=== PATIENT | female | born 1940 | race Caucasian/White ===

== ENCOUNTER 2020-11-17 12:41 | Outpatient (REF) | payer MEDICARE, SELFPAY ==
--- NOTE | ~2020-11-17 | MM_ITS ---
EXAMINATION: MM SCREENING DIGITAL BREAST TOMOSYNTHESIS, BILATERAL CLINICAL INFORMATION: Screening. Asymptomatic. Prior remote outside mammography unable to be located at this time. The lifetime risk of breast cancer based on the Tyrer-Cuzick Model is 2%. COMPARISON: None. TECHNIQUE: Digital breast tomosynthesis is performed in both the craniocaudal and mediolateral oblique views along with computer-aided detection (CAD). Synthesized 2D images are generated from the tomosynthesis. FINDINGS: There are scattered areas of fibroglandular density (ACR BI-RADS breast composition Category b). Breast tissue composition borders on predominantly fatty. The right breast shows no significant mass or architectural abnormality. There are bilateral vascular calcifications. The axilla and skin contours are unremarkable. The left CC view has nodular asymmetric density outer quadrant 5 cm from nipple with benign-appearing fibroglandular density upper quadrant on MLO view. Prior remote exams are unable to be retrieved, patient will be recalled in order to fully characterize this area for new baseline. MM/MM tomosynthesis screening BI IMPRESSION: 1. Left: Nodular asymmetric density outer quadrant on CC view likely island fibroglandular tissue. 2. Right: No mammographic evidence of malignancy. ASSESSMENT: BI-RADS 0: Incomplete - Need Additional Imaging Evaluation RECOMMENDATION: 1. Additional views of the left breast (3-D rolled CC x2, 3-D ML). 2. Targeted ultrasound if warranted after review of the additional views. 3. Radiology department staff will contact the patient for additional imaging. This patient's information was entered into a reminder system with a target due date for their next mammogram.
--- NOTE | ~2020-11-17 | MM_ITS ---
EXAMINATION: BONE DENSITOMETRY CLINICAL INDICATION: Menopause. COMPARISON: This is the patient's baseline examination. TECHNIQUE: Using a [id number] DXA System (software version: 13.1) manufactured by [employer], dual-energy x-ray absorptiometry was performed of the lumbar spine and left hip. The images are of good technical quality. Summary results are attached. FINDINGS: AP SPINE L1-L3 (excluding L4): The data of L1-L4 has been changed to exclude the L4 vertebral body, because degenerative change at this level may cause overestimation of lumbar spine density. BMD 0.979 g/cm2, Z-score -0.2, T-score -1.6, osteopenia. LEFT FEMUR, NECK: BMD 0.691 g/cm2, Z-score -0.7, T-score -2.5, osteoporosis. LEFT FEMUR, TOTAL: BMD 0.838 g/cm2, Z-score 0.2, T-score -1.4, osteopenia. IDENTIFIED RISK FACTORS: Early menopause, glucocorticoids (chronic), history of fracture (adult), hysterectomy, recurrent falls, rheumatoid arthritis, secondary osteoporosis, bilateral oophorectomy, Thiazide. HISTORY OF FRACTURE: Other fractures. MEDICATIONS: Calcium, vitamin D, Fosamax. MM/XR DEXA axial skeleton IMPRESSION: 1. DIAGNOSIS: Osteoporosis based on the lowest T-score value of -2.5 in the femoral neck applying World Health Organization criteria. 2. 10-YEAR FRACTURE RISK PREDICTION, FRAX: According to the guidelines, FRAX calculation should only be performed on patients in the osteopenia bone density category. Therefore, FRAX was not performed on this patient. 3. Treatment Recommendations: NOF guidelines recommend consideration for treatment in postmenopausal women and men age 50 and older presenting with the following: -A hip or vertebral (clinical or morphometric) fracture. -T-score less than or equal to -2.5 at the femoral neck or spine after appropriate evaluation to exclude secondary causes. -Low bone mass at the hip or spine and a 10-year fracture probability by FRAX of greater than or equal to 3% for hip fracture or greater than or equal to 20% for major osteoporotic fracture based on the [place] adapted WHO algorithm. 4. Other Recommendations: All treatment decisions require clinical judgment and consideration of individual patient factors, including patient preferences, comorbidities, previous drug use, risk factors not captured in the FRAX model (e.g. frailty, falls, vitamin D deficiency, increased bone turnover, interval significant decline in bone density) and possible under or overestimation of fracture risk by FRAX. Additional medical evaluation for secondary cause of low bone mineral density may be appropriate. FUTURE SCAN RECOMMENDATION: People with diagnosed cases of osteoporosis or at high risk for fracture should have regular bone mineral density tests. For patients eligible for Medicare, routine testing is allowed once every 2 years. The testing frequency can be increased to one year for patients who have rapidly progressing disease, those who are receiving or discontinuing medical therapy to restore bone mass, or have additional risk factors.
== END 2020-11-17 12:42 | disposition home or self-care (01) ==
LOC: HO.MAMMO 12:41
PROVIDERS: PCP Internal Medicine; Visit Provider Internal Medicine
DX: Z12.31 Encounter for screening mammogram for malignant neoplasm of breast (principal); M81.0 Age-related osteoporosis without current pathological fracture; Z78.0 Asymptomatic menopausal state
CPT/HCPCS: 77063; 77067; 77080

== ENCOUNTER 2021-01-30 08:26 | Outpatient (REF) | payer MEDICARE, SELFPAY ==
[2021-01-30 10:12] LABS: MANUAL DIFF FLAG NO
[2021-01-30 10:19] LABS: Basophils Percent Auto 0.2 % (0-2); Eosinophils Absolute Auto 0.2 X10*3/uL (0.0-0.4); Eosinophils Percent Auto 1.9 % (0-4); Hematocrit 40.9 % (37-47); Hemoglobin 13.3 g/dl (12.0-16.0); Imm Gran Abs Auto 0.03 X10*3/uL (0.00-0.03); Imm Gran Pct Auto 0.3 % (0.0-0.4); Lymphocytes Absolute Auto 2.1 X10*3/uL (1.2-4.9); Lymphocytes Percent Auto 24.2 % (20-40); Mean Corpuscular HGB Conc 32.5 g/dl (31.0-35.0); Mean Corpuscular Hemoglobin 29.9 pg (27.0-33.0); Mean Corpuscular Volume 91.9 fL (80-98); Mean Platelet Volume 10.8 fL (9.4-12.3); Monocytes Absolute Auto 0.7 X10*3/uL (0.1-1.2); Monocytes Percent Auto 7.9 % (2-11); Neutrophils Absolute Auto 5.7 X10*3/uL (2.0-8.3); Neutrophils Percent Auto 65.5 % (45-73); Platelet Count 267 X10*3/uL (160-400); Red Blood Count 4.45 X10*6/uL (4.20-5.50); Red Cell Distribution Width 12.7 % (11.0-16.0); White Blood Count 8.6 X10*3/uL (4.8-10.8)
[2021-01-30 10:43] LABS: Alanine Aminotransferase 12 U/L (0-31); Albumin Level 3.9 g/dL (3.5-5.0); Alkaline Phosphatase 49 U/L (39-117); Anion Gap 16 (12-20); Aspartate Amino Transferase 15 U/L (5-31); Bilirubin Total 0.6 mg/dL (0.0-1.0); Blood Urea Nitrogen 20 mg/dL (9-16); C Reactive Protein 1.21 mg/dL (< or = 0.50); Calcium 9.3 mg/dL (8.4-10.2); Carbon Dioxide 29 mmol/L (22-29); Chloride 102 mmol/L (96-108); Estimated Glomerular Filt Rate > 60; Glucose Random 78 mg/dL (60-115); Potassium 3.8 mmol/L (3.3-5.1); Sodium 143 mmol/L (135-145); Total Protein 6.5 g/dL (6.5-8.0)
[2021-01-30 11:02] LABS: Free T4 (Free Thyroxine) 0.81 ng/dL (0.71-1.85); Thyroid Stimulating Hormone 5.01 uIU/mL (0.32-4.0); Vitamin D 25-OH Total 13.7 ng/mL (>30)
[2021-01-30 11:03] LABS: Vitamin B12 277 pg/mL (200-900)
== END 2021-01-30 08:27 | disposition home or self-care (01) ==
LOC: HO.10HDL 08:26
PROVIDERS: Visit Provider Internal Medicine
DX: I10 Essential (primary) hypertension (principal); E03.9 Hypothyroidism, unspecified; R00.2 Palpitations; K21.9 Gastro-esophageal reflux disease without esophagitis; M81.0 Age-related osteoporosis without current pathological fracture
CPT/HCPCS: 36415; 80053; 82306; 82607; 84439; 84443; 85025; 86140

== ENCOUNTER 2021-03-23 10:19 | Outpatient (REF) | payer MEDICARE, SELFPAY ==
[2021-03-24 09:17] LABS: Lyme Abs Screen <0.90 index
== END 2021-03-23 10:20 | disposition home or self-care (01) ==
LOC: HO.10HDL 10:19
PROVIDERS: Visit Provider Internal Medicine
DX: T14.8XXA Other injury of unspecified body region, initial encounter (principal); W57.XXXA Bitten or stung by nonvenomous insect and other nonvenomous arthropods, initial encounter
CPT/HCPCS: 36415; 86617; 86618

== ENCOUNTER 2021-03-30 10:12 | Outpatient (REF) | payer MEDICARE, SELFPAY ==
[2021-03-30 13:53] LABS: C Reactive Protein 0.82 mg/dL (< or = 0.50)
[2021-03-31 08:52] LABS: Lyme Abs Screen <0.90 index
== END 2021-03-30 10:13 | disposition home or self-care (01) ==
LOC: HO.10HDL 10:12
PROVIDERS: Visit Provider Internal Medicine
DX: T14.8XXA Other injury of unspecified body region, initial encounter (principal); W57.XXXA Bitten or stung by nonvenomous insect and other nonvenomous arthropods, initial encounter
CPT/HCPCS: 36415; 86140; 86617; 86618

== ENCOUNTER 2021-04-13 09:35 | Outpatient (REF) | payer MEDICARE, SELFPAY ==
--- NOTE | ~2021-04-13 | XR_ITS ---
EXAMINATION: XR CERVICAL SPINE CLINICAL INFORMATION: Polymyalgia rheumatica. COMPARISON: None TECHNIQUE: 3 views of the cervical spine were obtained. FINDINGS: Mild to moderate degenerative disc disease is seen at C5-C6 and C6-C7. There is mild grade 1 retrolisthesis of C5 relative to C3 and C6. Mild to moderate multilevel bilateral facet arthropathy is seen most pronounced from C2-C3 to C4-C5. There is no acute fracture. Thin-walled cysts with narrow zone of transition are seen at the level the pedicle/spinous process of C1. The odontoid process is intact with mild degenerative changes. The prevertebral soft tissues are unremarkable. XR/XR cervical spine 2V IMPRESSION: Multilevel degenerative changes as detailed above without acute abnormality. Thin-walled cysts at the level of C1 are nonspecific, but demonstrate benign features.
--- NOTE | ~2021-04-13 | XR_ITS ---
EXAMINATION: XR HAND, BILATERAL CLINICAL INFORMATION: Polymyalgia rheumatica. COMPARISON: X-ray of the right wrist April 2016 TECHNIQUE: Three views of both hands. 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 This is unchanged compared with the 2016 x-ray. TRISCAPHE JOINT: Subchondral cystic change and marginal osteophytes indicative of mild osteoarthritis. METACARPOPHALANGEAL JOINTS: Unremarkable. Enthesopathic cystic change in the head of the 2nd metacarpal. INTERPHALANGEAL JOINTS: Scattered osteoarthritic changes noted manifested by small marginal osteophytes and/or subchondral cysts involving the 2nd, 3rd and 5th DIP joints and IP joint of the thumb. Remaining bones, joints and soft tissues unremarkable. LEFT HAND: FIRST CARPOMETACARPAL JOINT: Severe osteoarthritis manifested by joint space loss, subchondral cystic change and prominent marginal osteophytes. Enthesopathic cystic change at the base of the ulnar styloid without clinical significance. METACARPOPHALANGEAL JOINTS: Normal. INTERPHALANGEAL JOINTS: Mild osteoarthritis of the IP joint of the thumb and 2nd DIP joint manifested by small marginal osteophytes. Remaining bones, joints and soft tissues unremarkable. XR/XR hand LT min 3V IMPRESSION: RIGHT HAND: Severe osteoarthritis of the 1st carpometacarpal joint. Mild osteoarthritis in the triscaphe joint and interphalangeal joints. LEFT HAND: Severe osteoarthritis of the 1st carpometacarpal joint. Mild osteoarthritis involving the interphalangeal joints, as noted.
--- NOTE | ~2021-04-13 | XR_ITS ---
EXAMINATION: XR HAND, BILATERAL CLINICAL INFORMATION: Polymyalgia rheumatica. COMPARISON: X-ray of the right wrist April 2016 TECHNIQUE: Three views of both hands. 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 This is unchanged compared with the 2016 x-ray. TRISCAPHE JOINT: Subchondral cystic change and marginal osteophytes indicative of mild osteoarthritis. METACARPOPHALANGEAL JOINTS: Unremarkable. Enthesopathic cystic change in the head of the 2nd metacarpal. INTERPHALANGEAL JOINTS: Scattered osteoarthritic changes noted manifested by small marginal osteophytes and/or subchondral cysts involving the 2nd, 3rd and 5th DIP joints and IP joint of the thumb. Remaining bones, joints and soft tissues unremarkable. LEFT HAND: FIRST CARPOMETACARPAL JOINT: Severe osteoarthritis manifested by joint space loss, subchondral cystic change and prominent marginal osteophytes. Enthesopathic cystic change at the base of the ulnar styloid without clinical significance. METACARPOPHALANGEAL JOINTS: Normal. INTERPHALANGEAL JOINTS: Mild osteoarthritis of the IP joint of the thumb and 2nd DIP joint manifested by small marginal osteophytes. Remaining bones, joints and soft tissues unremarkable. 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 Mild osteoarthritis in the triscaphe joint and interphalangeal joints. LEFT HAND: Severe osteoarthritis of the 1st carpometacarpal joint. Mild osteoarthritis involving the interphalangeal joints, as noted.
[2021-04-13 11:03] LABS: MANUAL DIFF FLAG NO
[2021-04-13 11:14] LABS: Basophils Percent Auto 0.3 % (0-2); Eosinophils Percent Auto 0.3 % (0-4); Hematocrit 40.8 % (37-47); Hemoglobin 13.8 g/dl (12.0-16.0); Imm Gran Abs Auto 0.06 X10*3/uL (0.00-0.03); Imm Gran Pct Auto 0.5 % (0.0-0.4); Lymphocytes Absolute Auto 1.3 X10*3/uL (1.2-4.9); Lymphocytes Percent Auto 10.9 % (20-40); Mean Corpuscular HGB Conc 33.8 g/dl (31.0-35.0); Mean Corpuscular Hemoglobin 29.6 pg (27.0-33.0); Mean Corpuscular Volume 87.6 fL (80-98); Mean Platelet Volume 11.5 fL (9.4-12.3); Monocytes Absolute Auto 0.7 X10*3/uL (0.1-1.2); Neutrophils Absolute Auto 9.6 X10*3/uL (2.0-8.3); Platelet Count 200 X10*3/uL (160-400); Red Blood Count 4.66 X10*6/uL (4.20-5.50); Red Cell Distribution Width 12.6 % (11.0-16.0); White Blood Count 11.7 X10*3/uL (4.8-10.8)
[2021-04-13 12:15] LABS: Erythrocyte Sedimentation Rate 16 MM/HR (0-20)
[2021-04-13 12:25] LABS: Alanine Aminotransferase 9 U/L (0-31); Albumin Level 4.3 g/dL (3.5-5.0); Alkaline Phosphatase 48 U/L (39-117); Anion Gap 15 (12-20); Aspartate Amino Transferase 16 U/L (5-31); Bilirubin Total 0.5 mg/dL (0.0-1.0); Blood Urea Nitrogen 14 mg/dL (9-16); C Reactive Protein 0.53 mg/dL (< or = 0.50); Calcium 10.1 mg/dL (8.4-10.2); Carbon Dioxide 29 mmol/L (22-29); Chloride 96 mmol/L (96-108); Estimated Glomerular Filt Rate > 60; Glucose Random 83 mg/dL (60-115); Potassium 3.7 mmol/L (3.3-5.1); Rheumatoid Factor < 15.0 IU/mL (<15.0); Sodium 136 mmol/L (135-145); Total Protein 6.9 g/dL (6.5-8.0)
[2021-04-19 16:57] LABS: Cyclic Citrullinated Peptide <16 UNITS
== END 2021-04-13 09:36 | disposition home or self-care (01) ==
LOC: HO.LAB 09:35
PROVIDERS: PCP Internal Medicine; Visit Provider Student in an Organized Health Care Education/Training Program
DX: M35.3 Polymyalgia rheumatica (principal); Z79.52 Long term (current) use of systemic steroids
CPT/HCPCS: 36415; 72040; 73130; 80053; 85025; 85652; 86140; 86200; 86431; 99202

== ENCOUNTER 2021-05-01 10:37 | Outpatient (REF) | payer MEDICARE, SELFPAY ==
[2021-05-01 12:49] LABS: Anion Gap 16 (12-20); Blood Urea Nitrogen 12 mg/dL (9-16); Calcium 9.3 mg/dL (8.4-10.2); Carbon Dioxide 30 mmol/L (22-29); Chloride 90 mmol/L (96-108); Estimated Glomerular Filt Rate > 60; Glucose Random 82 mg/dL (60-115); Potassium 3.5 mmol/L (3.3-5.1); Sodium 132 mmol/L (135-145)
[2021-05-01 13:11] LABS: Thyroid Stimulating Hormone 2.54 uIU/mL (0.32-4.0); Vitamin D 25-OH Total 84.4 ng/mL (>30)
== END 2021-05-01 10:38 | disposition home or self-care (01) ==
LOC: HO.10HDL 10:37
PROVIDERS: Visit Provider Internal Medicine
DX: E03.9 Hypothyroidism, unspecified (principal); E55.9 Vitamin D deficiency, unspecified; I10 Essential (primary) hypertension
CPT/HCPCS: 36415; 80048; 82306; 84439; 84443

== ENCOUNTER → 2021-05-04 10:15 | Outpatient (BNVA) | payer MEDICARE, SELFPAY | PROVIDERS: PCP Internal Medicine; Visit Provider Student in an Organized Health Care Education/Training Program | DX: M35.3 Polymyalgia rheumatica (principal); M81.0 Age-related osteoporosis without current pathological fracture; Z79.52 Long term (current) use of systemic steroids | CPT/HCPCS: 99212 ==

== ENCOUNTER 2021-06-27 13:17 | Outpatient (REF) | payer MEDICARE, SELFPAY ==
--- NOTE | ~2021-06-27 | XR_ITS ---
EXAMINATION: XR SHOULDER, RIGHT XR WRIST, RIGHT CLINICAL INFORMATION: Pain in right wrist. Comparison. COMPARISON: None TECHNIQUE: Four views of the right wrist and 4 views of the right shoulder. FINDINGS: RIGHT WRIST: There is loss of radiocarpal and 1st carpometacarpal joint space. Moderate periarticular spurring is seen in the 1st carpometacarpal joint space. No visible acute fracture, dislocation, or lytic process seen. Scaphoid view reveals no fracture. RIGHT SHOULDER: The glenohumeral joint space is normal. There is mild reduction in the AC joint space. No visible acute fracture or dislocation. The AC joint is normal. XR/XR shoulder RT min 2V IMPRESSION: 1. Degenerative arthritic changes in the radiocarpal joint and 1st carpometacarpal joint space with radha-articular spurring. No acute fracture or dislocation of the right wrist. The scaphoid bone is normal. 2. Mild degenerative changes of the AC joint. No visible acute fracture, dislocation, or subluxation. No abnormal soft tissue swelling.
--- NOTE | ~2021-06-27 | XR_ITS ---
EXAMINATION: XR SHOULDER, RIGHT XR WRIST, RIGHT CLINICAL INFORMATION: Pain in right wrist. Comparison. COMPARISON: None TECHNIQUE: Four views of the right wrist and 4 views of the right shoulder. FINDINGS: RIGHT WRIST: There is loss of radiocarpal and 1st carpometacarpal joint space. Moderate periarticular spurring is seen in the 1st carpometacarpal joint space. No visible acute fracture, dislocation, or lytic process seen. Scaphoid view reveals no fracture. RIGHT SHOULDER: The glenohumeral joint space is normal. There is mild reduction in the AC joint space. No visible acute fracture or dislocation. The AC joint is normal. XR/XR wrist RT 2V IMPRESSION: 1. Degenerative arthritic changes in the radiocarpal joint and 1st carpometacarpal joint space with radha-articular spurring. No acute fracture or dislocation of the right wrist. The scaphoid bone is normal. 2. Mild degenerative changes of the AC joint. No visible acute fracture, dislocation, or subluxation. No abnormal soft tissue swelling.
[2021-06-27 15:11] LABS: C Reactive Protein 0.19 mg/dL (< or = 0.50)
[2021-06-27 15:40] LABS: Erythrocyte Sedimentation Rate 14 MM/HR (0-20)
== END 2021-06-27 13:18 | disposition home or self-care (01) ==
LOC: HO.XRAY 13:17
PROVIDERS: PCP Internal Medicine; Visit Provider Nurse Practitioner Family
DX: M35.3 Polymyalgia rheumatica (principal); M81.0 Age-related osteoporosis without current pathological fracture; M25.511 Pain in right shoulder; M25.531 Pain in right wrist; Z79.52 Long term (current) use of systemic steroids; Z91.81 History of falling
CPT/HCPCS: 36415; 73030; 73100; 85652; 86140; 99212

== ENCOUNTER → 2021-07-11 08:55 | Outpatient (BNVA) | payer MEDICARE, SELFPAY | PROVIDERS: PCP Internal Medicine; Visit Provider Physician Assistant | DX: M75.80 Other shoulder lesions, unspecified shoulder (principal); M19.011 Primary osteoarthritis, right shoulder | CPT/HCPCS: 20610; 99202; J1040 ==

== ENCOUNTER 2021-08-14 08:26 | Outpatient (REF) | payer MEDICARE, SELFPAY ==
[2021-08-14 10:07] LABS: MANUAL DIFF FLAG NO
[2021-08-14 10:11] LABS: Basophils Percent Auto 0.4 % (0-2); Eosinophils Absolute Auto 0.3 X10*3/uL (0.0-0.4); Hematocrit 36.1 % (37.0-47.0); Hemoglobin 12.4 g/dl (12.0-16.0); Imm Gran Abs Auto 0.03 X10*3/uL (0.00-0.03); Imm Gran Pct Auto 0.4 % (0.0-0.4); Lymphocytes Absolute Auto 1.9 X10*3/uL (1.2-4.9); Lymphocytes Percent Auto 28.4 % (20-40); Mean Corpuscular HGB Conc 34.3 g/dl (31.0-35.0); Mean Corpuscular Hemoglobin 31.9 pg (27.0-33.0); Mean Corpuscular Volume 92.8 fL (80.0-98.0); Mean Platelet Volume 10.4 fL (9.4-12.3); Monocytes Absolute Auto 0.6 X10*3/uL (0.1-1.2); Monocytes Percent Auto 8.1 % (2-11); Neutrophils Absolute Auto 3.94 x10*3/uL (2.0-8.3); Neutrophils Percent Auto 57.7 % (45-73); Platelet Count 259 X10*3/uL (160-400); Red Blood Count 3.89 X10*6/uL (4.20-5.50); Red Cell Distribution Width 12.8 % (11.0-16.0); White Blood Count 6.8 X10*3/uL (4.8-10.8)
[2021-08-14 10:40] LABS: Alanine Aminotransferase 11 U/L (0-31); Alkaline Phosphatase 46 U/L (39-117); Anion Gap 9 (12-20); Aspartate Amino Transferase 13 U/L (5-31); Bilirubin Total 0.5 mg/dL (0.0-1.0); Blood Urea Nitrogen 22 mg/dL (9-16); Calcium 9.2 mg/dL (8.4-10.2); Carbon Dioxide 29 mmol/L (22-29); Chloride 104 mmol/L (96-108); Cholesterol 189 mg/dL; Estimated Glomerular Filt Rate > 60; Glucose Fasting 88 mg/dL (60-99); HDL Cholesterol 64 mg/dL; LDL Cholesterol Calculated 103 mg/dl; Potassium 4.2 mmol/L (3.3-5.1); Sodium 138 mmol/L (135-145); Total Protein 6.3 g/dL (6.5-8.0); Triglycerides 114 mg/dL
[2021-08-14 11:00] LABS: Free T4 (Free Thyroxine) 0.87 ng/dL (0.71-1.85); Thyroid Stimulating Hormone 3.23 uIU/mL (0.32-4.0)
[2021-08-14 13:23] LABS: Erythrocyte Sedimentation Rate 21 MM/HR (0-20)
[2021-08-14 18:55] LABS: C Reactive Protein 0.63 mg/dL (< or = 0.50)
== END 2021-08-14 08:27 | disposition home or self-care (01) ==
LOC: HO.10HDL 08:26
PROVIDERS: Absent Provider Internal Medicine; Visit Provider Student in an Organized Health Care Education/Training Program
DX: M35.3 Polymyalgia rheumatica (principal); I10 Essential (primary) hypertension; E78.00 Pure hypercholesterolemia, unspecified; E03.9 Hypothyroidism, unspecified
CPT/HCPCS: 36415; 80053; 80061; 84439; 84443; 85025; 85652; 86140

== ENCOUNTER 2021-10-08 16:07 | Outpatient (REF) | payer MEDICARE, SELFPAY ==
[2021-10-08 16:56] LABS: Influenza A PCR NEGATIVE (Negative); Influenza B PCR NEGATIVE (Negative); Resp Syncy Virus RNA Qual PCR NEGATIVE (Negative); SARS COV2 PCR INHOUSE NEGATIVE (Negative)
== END 2021-10-08 16:08 | disposition home or self-care (01) ==
LOC: HO.LNP 16:07
PROVIDERS: Visit Provider Internal Medicine
DX: Z20.822 Contact with and (suspected) exposure to COVID-19 (principal)
CPT/HCPCS: 0241U

== ENCOUNTER 2021-11-23 10:48 | Outpatient (REF) | payer MEDICARE, SELFPAY ==
[2021-11-23 13:38] LABS: MANUAL DIFF FLAG NO
[2021-11-23 13:43] LABS: Basophils Percent Auto 0.2 % (0-2); Eosinophils Absolute Auto 0.2 X10*3/uL (0.0-0.4); Eosinophils Percent Auto 2.1 % (0-4); Hematocrit 39.8 % (37.0-47.0); Hemoglobin 13.2 g/dl (12.0-16.0); Imm Gran Abs Auto 0.05 X10*3/uL (0.00-0.03); Imm Gran Pct Auto 0.5 % (0.0-0.4); Lymphocytes Absolute Auto 1.7 X10*3/uL (1.2-4.9); Lymphocytes Percent Auto 16.1 % (20-40); Mean Corpuscular HGB Conc 33.2 g/dl (31.0-35.0); Mean Corpuscular Hemoglobin 31.2 pg (27.0-33.0); Mean Corpuscular Volume 94.1 fL (80.0-98.0); Mean Platelet Volume 10.4 fL (9.4-12.3); Monocytes Absolute Auto 0.7 X10*3/uL (0.1-1.2); Monocytes Percent Auto 6.8 % (2-11); Neutrophils Absolute Auto 7.6 x10*3/uL (2.0-8.3); Neutrophils Percent Auto 74.3 % (45-73); Platelet Count 275 X10*3/uL (160-400); Red Blood Count 4.23 X10*6/uL (4.20-5.50); Red Cell Distribution Width 12.3 % (11.0-16.0); White Blood Count 10.3 X10*3/uL (4.8-10.8)
[2021-11-23 13:54] LABS: Alanine Aminotransferase 12 U/L (0-31); Albumin Level 4.1 g/dL (3.5-5.0); Alkaline Phosphatase 51 U/L (39-117); Anion Gap 14 (12-20); Aspartate Amino Transferase 14 U/L (5-31); Bilirubin Total 0.4 mg/dL (0.0-1.0); Blood Urea Nitrogen 22 mg/dL (9-16); Calcium 9.8 mg/dL (8.4-10.2); Carbon Dioxide 28 mmol/L (22-29); Chloride 100 mmol/L (96-108); Estimated Glomerular Filt Rate > 60; Glucose Random 77 mg/dL (60-115); Potassium 4.4 mmol/L (3.3-5.1); Sodium 138 mmol/L (135-145)
[2021-11-23 14:15] LABS: Free T4 (Free Thyroxine) 0.94 ng/dL (0.71-1.85); Thyroid Stimulating Hormone 2.91 uIU/mL (0.32-4.0); Vitamin D 25-OH Total 38.3 ng/mL (>30)
== END 2021-11-23 10:49 | disposition home or self-care (01) ==
LOC: HO.10HDL 10:48
PROVIDERS: Visit Provider Internal Medicine
DX: E03.9 Hypothyroidism, unspecified (principal); I49.1 Atrial premature depolarization; K21.9 Gastro-esophageal reflux disease without esophagitis; M81.0 Age-related osteoporosis without current pathological fracture
CPT/HCPCS: 36415; 80053; 82306; 84439; 84443; 85025

== ENCOUNTER 2022-01-21 11:21 | Outpatient (REF) | payer MEDICARE, SELFPAY ==
--- NOTE | ~2022-01-21 | XR_ITS ---
EXAMINATION: XR CHEST CLINICAL INFORMATION: Hypertension. Shortness of breath. COMPARISON: None TECHNIQUE: 2 views of the chest were obtained. FINDINGS: The cardiac and mediastinal contours are normal. The lungs are clear. There is no pleural effusion or pneumothorax. There are degenerative changes of the spine. XR/XR chest 2V IMPRESSION: No evidence for acute disease in the chest.
[2022-01-21 13:22] LABS: MANUAL DIFF FLAG NO
[2022-01-21 13:25] LABS: Basophils Percent Auto 0.2 % (0-2); Eosinophils Percent Auto 0.2 % (0-4); Hematocrit 40.3 % (37.0-47.0); Hemoglobin 13.2 g/dl (12.0-16.0); Imm Gran Abs Auto 0.11 X10*3/uL (0.00-0.03); Imm Gran Pct Auto 0.9 % (0.0-0.4); Lymphocytes Absolute Auto 2.6 X10*3/uL (1.2-4.9); Lymphocytes Percent Auto 20.6 % (20-40); Mean Corpuscular HGB Conc 32.8 g/dl (31.0-35.0); Mean Corpuscular Hemoglobin 31.6 pg (27.0-33.0); Mean Corpuscular Volume 96.4 fL (80.0-98.0); Mean Platelet Volume 10.5 fL (9.4-12.3); Monocytes Absolute Auto 0.9 X10*3/uL (0.1-1.2); Monocytes Percent Auto 7.4 % (2-11); Neutrophils Absolute Auto 8.7 x10*3/uL (2.0-8.3); Neutrophils Percent Auto 70.7 % (45-73); Platelet Count 267 X10*3/uL (160-400); Red Blood Count 4.18 X10*6/uL (4.20-5.50); Red Cell Distribution Width 13.9 % (11.0-16.0); White Blood Count 12.4 X10*3/uL (4.8-10.8)
[2022-01-21 13:40] LABS: Alanine Aminotransferase 10 U/L (0-31); Alkaline Phosphatase 45 U/L (39-117); Anion Gap 13 (12-20); Aspartate Amino Transferase 12 U/L (5-31); Bilirubin Total 0.4 mg/dL (0.0-1.0); Blood Urea Nitrogen 18 mg/dL (9-16); Calcium 9.6 mg/dL (8.4-10.2); Carbon Dioxide 27 mmol/L (22-29); Chloride 106 mmol/L (96-108); Estimated Glomerular Filt Rate > 60; Glucose Random 74 mg/dL (60-115); Potassium 3.8 mmol/L (3.3-5.1); Sodium 142 mmol/L (135-145); Total Protein 6.5 g/dL (6.5-8.0)
[2022-01-21 13:53] LABS: Free T4 (Free Thyroxine) 1.05 ng/dL (0.71-1.85); Thyroid Stimulating Hormone 2.85 uIU/mL (0.32-4.0)
[2022-01-21 13:59] LABS: B Type Natriuretic Peptide 78 pg/mL (<100); Troponin-I High Sensitivity 4.8 ng/L (<3.5-17.0)
== END 2022-01-21 11:22 | disposition home or self-care (01) ==
LOC: HO.10HDL 11:21
PROVIDERS: Visit Provider Internal Medicine
DX: I10 Essential (primary) hypertension (principal); R06.02 Shortness of breath; K21.9 Gastro-esophageal reflux disease without esophagitis; R63.5 Abnormal weight gain; M35.3 Polymyalgia rheumatica
CPT/HCPCS: 36415; 71046; 80053; 82550; 83880; 84439; 84443; 84484; 85025

== ENCOUNTER 2022-01-27 09:32 | Emergency (ER) | payer MEDICARE, SELFPAY ==
--- NOTE | ~2022-01-27 | XR_ITS ---
EXAMINATION: XR CHEST CLINICAL INFORMATION: Shortness of breath COMPARISON: January 21, 2022 TECHNIQUE: AP portable view of the chest was obtained. FINDINGS: No significant abnormality is noted involving the heart, lungs, mediastinum, bony thorax or soft tissues. XR/XR chest 1V IMPRESSION: No acute disease.
--- NOTE | ~2022-01-27 | CT_ITS ---
EXAMINATION: CT ANGIOGRAM OF THE CHEST WITH AND WITHOUT CONTRAST (CT PULMONARY ANGIOGRAM FOR PE) CLINICAL INFORMATION: Reason for Exam SOB and elevated d dimer COMPARISON: None TECHNIQUE: Prior to contrast administration, noncontrast localization images were obtained. Subsequently, multidetector volumetric imaging was performed from the thoracic inlet to below the diaphragms following the administration of 65 mL Omnipaque 350 intravenous contrast. No contrast reaction reported Sagittal, coronal, and MIP oblique sagittal reformatted images were obtained on the CT workstation, uploaded to PACS, and reviewed. This CT examination was performed using dose optimization techniques as appropriate, variously including the following: *Automated exposure control *Adjustment of mA and/or kV according to patient size (this includes techniques or standardized protocols for targeted exams where dose is matched to indication/reason for exam; i.e. extremities or head) *Use of iterative reconstruction technique Total exam dose-length product 325 mGy-cm FINDINGS: QUALITY OF STUDY/CONTRAST BOLUS: Satisfactory. PULMONARY ARTERIES: No central or segmental pulmonary emboli. THORACIC AORTA: No aneurysm or dissection. LUNG: There is emphysematous changes of both lungs with bullous changes left upper lobe. There are 1 one-2 mm subpleural nodules in right upper and lower lobes. The largest 2mm nodule is in right lower lobe axial image 222/8. No large nodule, mass or consolidation seen. PLEURA: No pleural effusion or pneumothorax. MEDIASTINUM: And the great vessels are normal caliber. The central trachea and the bronchi are widely patent. No abnormal size mediastinal or hilar lymph nodes seen. There is no pericardial effusion. No evidence of septal bowing or right heart strain. CHEST WALL/AXILLA: No axillary or internal mammary lymphadenopathy. OSSEOUS STRUCTURES: No lytic or sclerotic process seen. There is mild exaggerated thoracic kyphosis UPPER ABDOMEN: There is a small 2.3 cm cystic lesion in right hepatic lobe. Several smaller lesions are seen in the liver as well most likely suggestive of a small cyst. No intrahepatic ductal dilatation. No reflux of contrast into the hepatic veins to suggest elevated right heart pressures. CT/CT angio chest PE protocol IMPRESSION: No evidence of PE. No evidence aortic dissection or aneurysm. Diffuse emphysematous lungs without acute pneumonic process. VTE: Negative
[2022-01-27 09:49] VITALS: BP 182/88; PULSE 87; RESP 14; TEMP 36.4; O2SAT 99; BMI 33.2
[2022-01-27 10:00] VITALS: BP 156/69; PULSE 78; RESP 14; TEMP 36.4; O2SAT 98
--- NOTE | 2022-01-27 10:08 | ECG_ITS ---
Test Reason : SOB Blood Pressure : / mmHG Vent. Rate : 074 BPM Atrial Rate : 074 BPM P-R Int : 148 ms QRS Dur : 084 ms QT Int : 398 ms P-R-T Axes : 074 -02 057 degrees QTc Int : 441 ms Sinus rhythm with Premature atrial complexes Nonspecific ST abnormality Abnormal ECG No previous ECGs available Referred By: Delicia Herrera Electronically Signed By:Ramon Quinteros
--- NOTE | 2022-01-27 10:15 | ED_ITS ---
HPI - SOB/Dyspnea General Chief Complaint: Dyspnea Stated Complaint: SOB/Dizzy Time Seen by Provider: 01/27/22 10:00 Source: patient and family () Mode of arrival: ambulatory Limitations: no limitations History of Present Illness HPI Narrative: 81 YEARS OLD FEMALE CAME IN FOR EVALUATION OF SHORTNESS OF BREATH Symptoms started about 7-8 months ago with worsening of exertional dyspnea, patient noted during ambulating at the house or doing some work around the house started to have shortness of breath but no chest pain, progressively is worsening now shortness of breath is during rest. Patient was seen by her PCP Dr. Davis who order chest x-ray and blood workup which was unremarkable. No history of lung disease/COPD/asthma in the past. She is a former smoker quit 40 years ago. Patient declined any orthopnea, PND, or lower extremities edema. Related Data Home Medications Medication Instructions Recorded Confirmed alendronate 70 mg tablet 70 mg PO QWEEK 04/13/21 06/27/21 celecoxib 200 mg capsule 200 mg PO DAILY 04/13/21 06/27/21 fexofenadine 180 mg tablet 180 mg PO DAILY 04/13/21 06/27/21 fluticasone propionate 50 1 spray INTRANASAL DAILY 04/13/21 06/27/21 mcg/actuation nasal spray,suspension (Allergy Relief (fluticasone)) omeprazole 20 mg capsule,delayed 20 mg PO DAILY 04/13/21 06/27/21 release sertraline 25 mg tablet 25 mg PO DAILY 04/13/21 06/27/21 simvastatin 20 mg tablet 20 mg PO DAILY 04/13/21 06/27/21 Previous Rx's Medication Instructions Recorded prednisone 1 mg tablet 4 mg PO DAILY #120 tab 05/04/21 Allergies Allergy/AdvReac Type Severity Reaction Status Date / Time naproxen [NAPROXEN] Allergy Intermediate BLISTERS Verified 06/27/21 14:36 IN MOUTH Sulfa (Sulfonamide Allergy Intermediate BLISTERS Verified 06/27/21 14:36 Antibiotics) ON TONGUE [SULFA (SULFONAMIDE ANTIBIOTICS)] Review of Systems Review of Systems: All other systems are reviewed and are negative Constitutional: Reports as per HPI and Reports no additional constitutional complaints Eyes: Reports as per HPI and Reports no additional eye complaints Reports system reviewed and no additional complaints, except as documented Cardiovascular: Reports as per HPI and Reports no additional cardiovascular complaints Respiratory: Reports as per HPI and Reports no additional respiratory complaints Gastrointestinal: Reports as per HPI and Reports no additional gastrointestinal complaints Genitourinary: Reports no additional female genitourinary complaints Musculoskeletal: Reports no additional musculoskeletal complaints Skin/Breast: Reports system reviewed and no additional complaints, except as docu Psychiatric: Reports no additional psychiatric complaints Endocrine: Reports no additional endocrine complaints Hematologic/Lymphatic: Reports no additional hematologic/lymphatic complaints Allergic/Immunologic: Reports no additional allergic/immunologic complaints Reports system reviewed and no additional complaints, except as documented and Reports Abnormal speech present [facility] Past Medical History Surgical History Hx of cholecystectomy Hx of hysterectomy Social History Social History Alcohol intake: current Alcohol intake frequency: holidays/special occasions only Patient Tobacco Use Status: Former Tobacco user Tobacco use type: Cigarette Cigarettes Per Day: 15 Years Smoked: 4 Smoked in Last 30 Days: No Use of substances other than those prescribed or required for medical reasons: Yes Substance Use Type: Marijuana Last Used Substance: Days (ago) Any prior treatment program specific to substance use: No Advance Directives: No Advance Directives Information Provided: Yes Physical Exam Vital Signs: Vital Signs: Last Vital Signs Temp 97.6 F 01/27/22 12:04 Pulse 72 01/27/22 15:02 Resp 16 01/27/22 15:02 BP 133/95 H 01/27/22 15:02 Pulse Ox 94 01/27/22 15:02 BMI result Body Mass Index 33.2 Vital signs have been reviewed as appeared to be correct. Blood pressure normal. Heart rate normal. Respiration rate normal. Temperature normal. Oxygen saturation normal. Appearance: Alert. Oriented X3. No acute distress. Head: Normal external exam. Normocephalic. Atraumatic. No Mcmahon signs noted. No raccoon eyes noted Eyes: PERRLA. EOMI. Conjunctiva and sclera normal. Eyelids normal. ENT: TM's Normal. Pharynx normal. Uvula midline. Moist mucous membranes. No trismus noted. No drooling noted. No muffled voice noted. Neck: Normal inspection. Neck supple. FROM. No adenopathy. Thyroid Normal. No meningeal signs. No neck mass noted. CVS: Normal heart rate and rhythm. Heart sound normal. No murmurs noted. Pulses normal throughout. Respiratory: No respiratory distress. Painless inspiration. Breath sounds normal. No wheezes/rales/rhonchi noted. Chest nontender. No accessory muscle usage noted or decreased air movement noted. Abdomen: Soft and nontender. Bowel sounds normal in all 4 quadrants. No distention noted. No organomegaly noted. No visible injury noted. Back: No CVA tenderness. Full range of motion noted. Skin: Skin warm and dry. Normal skin color. Normal skin turgor. No rashes/lesions/lacerations noted. Extremities: No lower extremity edema. Extremities exhibit normal range of motion. Extremities nontender. Neuro: Oriented X 3. Cranial nerve exam: II-XII are grossly intact No motor deficit. No sensory deficit. Reflexes normal. Course Course Course Narrative: Assessment and plan. 81 years old female came in for worsening of shortness of breath for many months now, patient had outpatient workup by her PCP which was unremarkable, known to have history of smoking for over 40 years ago, because elevated D-dimer patient had CT of the chest which shows emphysematous change but no PE or any other vascular disaster. Patient stable in the emergency department with oxygenation of 94-99% on room air and stable vital signs. Patient is scheduled to see her PCP tomorrow I recommended to get a referral to corrosion control fitter. MDM - SOB/Dyspnea Medical Records Attestation: I reviewed the patient's medical records. Lab Data Attestation: I reviewed the patient's lab results. Result diagrams: 01/27/22 10:39 01/27/22 10:48 Labs: Lab Results 01/27/22 01/27/22 01/27/22 Range/Units 10:21 10:39 10:39 WBC 12.2 H (4.8-10.8) X10*3/uL RBC 4.41 (4.20-5.50) X10*6/uL Hgb 14.1 (12.0-16.0) g/dl Hct 40.9 (37.0-47.0) % MCV 92.7 (80.0-98.0) fL MCH 32.0 (27.0-33.0) pg MCHC 34.5 (31.0-35.0) g/dl RDW 13.4 (11.0-16.0) % Plt Count 188 D (160-400) X10*3/uL MPV 11.0 (9.4-12.3) fL Immature Gran % (Auto) 1.3 H (0.0-0.4) % Neut % (Auto) 77.5 H (45-73) % Lymph % (Auto) 13.6 L (20-40) % Alexander % (Auto) 6.9 (2-11) % Eos % (Auto) 0.5 (0-4) % Baso % (Auto) 0.2 (0-2) % Lymph # (Auto) 1.7 (1.2-4.9) X10*3/uL Alexander # (Auto) 0.8 (0.1-1.2) X10*3/uL Eos # (Auto) 0.1 (0.0-0.4) X10*3/uL Baso # (Auto) 0.0 (0.0-0.2) X10*3/uL Abs Immat Gran (auto) 0.16 H (0.00-0.03) X10*3/uL Absolute Neuts (auto) 9.4 H (2.0-8.3) x10*3/uL Absolute Nucleated RBC 0.000 (0.0-0.012) X10*3/uL Nucleated RBC % (auto) 0.0 (0.0-0.2) /100WBC Smear Tech's Comments VERIFIED D-Dimer High Sensitivty NG/ML Sodium (135-145) mmol/L Potassium (3.3-5.1) mmol/L Chloride (96-108) mmol/L Carbon Dioxide (22-29) mmol/L Anion Gap (12-20) BUN (9-16) mg/dL Creatinine (0.5-1.4) mg/dL Estim Creat Clear Calc Estimated GFR Random Glucose (60-115) mg/dL Calcium (8.4-10.2) mg/dL Total Bilirubin (0.0-1.0) mg/dL Direct Bilirubin (0.0-0.5) mg/dL AST (5-31) U/L ALT (0-31) U/L Alkaline Phosphatase (39-117) U/L Troponin I High Sens 7.4 D (<3.5-17.0) ng/L B-Natriuretic Peptide (<100) pg/mL Total Protein (6.5-8.0) g/dL Albumin (3.5-5.0) g/dL Lipase (8-78) U/L Influenza Type A (PCR) NEGATIVE (Negative) Influenza Type B (PCR) NEGATIVE (Negative) RSV RNA Qual (PCR) NEGATIVE (Negative) SARS-CoV-2 RNA (RT-PCR) NEGATIVE (Negative) 01/27/22 01/27/22 01/27/22 Range/Units 10:39 10:39 10:48 WBC (4.8-10.8) X10*3/uL RBC (4.20-5.50) X10*6/uL Hgb (12.0-16.0) g/dl Hct (37.0-47.0) % MCV (80.0-98.0) fL MCH (27.0-33.0) pg MCHC (31.0-35.0) g/dl RDW (11.0-16.0) % Plt Count (160-400) X10*3/uL MPV (9.4-12.3) fL Immature Gran % (Auto) (0.0-0.4) % Neut % (Auto) (45-73) % Lymph % (Auto) (20-40) % Alexander % (Auto) (2-11) % Eos % (Auto) (0-4) % Baso % (Auto) (0-2) % Lymph # (Auto) (1.2-4.9) X10*3/uL Alexander # (Auto) (0.1-1.2) X10*3/uL Eos # (Auto) (0.0-0.4) X10*3/uL Baso # (Auto) (0.0-0.2) X10*3/uL Abs Immat Gran (auto) (0.00-0.03) X10*3/uL Absolute Neuts (auto) (2.0-8.3) x10*3/uL Absolute Nucleated RBC (0.0-0.012) X10*3/uL Nucleated RBC % (auto) (0.0-0.2) /100WBC Smear Tech's Comments D-Dimer High Sensitivty 399 NG/ML Sodium 138 (135-145) mmol/L Potassium 3.4 (3.3-5.1) mmol/L Chloride 98 (96-108) mmol/L Carbon Dioxide 27 (22-29) mmol/L Anion Gap 16 (12-20) BUN 21 H (9-16) mg/dL Creatinine 0.82 (0.5-1.4) mg/dL Estim Creat Clear Calc 51.0 Estimated GFR > 60 Random Glucose 87 (60-115) mg/dL Calcium 9.7 (8.4-10.2) mg/dL Total Bilirubin 0.8 (0.0-1.0) mg/dL Direct Bilirubin 0.3 (0.0-0.5) mg/dL AST 13 (5-31) U/L ALT 13 (0-31) U/L Alkaline Phosphatase 51 (39-117) U/L Troponin I High Sens (<3.5-17.0) ng/L B-Natriuretic Peptide 30 (<100) pg/mL Total Protein 6.7 (6.5-8.0) g/dL Albumin 4.1 (3.5-5.0) g/dL Lipase 11 (8-78) U/L Influenza Type A (PCR) (Negative) Influenza Type B (PCR) (Negative) RSV RNA Qual (PCR) (Negative) SARS-CoV-2 RNA (RT-PCR) (Negative) Imaging Data Chest CT angiogram: Attestation: I personally reviewed and interpreted this imaging study as follows: Radiologist's impression: No evidence of PE, no evidence of aortic dissection or aneurysm, diffuse emphysematous lung without acute pneumonic process. ECG Data Attestation: I personally reviewed and interpreted this ECG as follows: Interpretation: Normal sinus rhythm at 74 beats per minutes with premature atrial complex, left axis deviation, normal intervals, no ST-T changes. Discharge Plan Discharge Clinical Impression: Chronic dyspnea Patient Disposition: Home, Self-Care Instructions: Dyspnea (ED) Prescriptions: No Action alendronate 70 mg tablet 70 mg PO QWEEK 0RF celecoxib 200 mg capsule 200 mg PO DAILY 0RF omeprazole 20 mg capsule,delayed release(DR/EC) 20 mg PO DAILY 0RF fexofenadine 180 mg tablet 180 mg PO DAILY 0RF fluticasone propionate [Allergy Relief (fluticasone)] 50 mcg/actuation spray,suspension 1 spray intranasal DAILY 0RF Rx Instructions: administer into each nostril sertraline 25 mg tablet 25 mg PO DAILY 0RF simvastatin 20 mg tablet 20 mg PO DAILY 0RF prednisone 1 mg tablet 4 mg PO DAILY Qty: 120 3RF Referrals: Ismael Davis MD [Primary Care Provider] -
[2022-01-27 10:46] LABS: Basophils Percent Auto 0.2 % (0-2); Eosinophils Absolute Auto 0.1 X10*3/uL (0.0-0.4); Eosinophils Percent Auto 0.5 % (0-4); Hemoglobin 14.1 g/dl (12.0-16.0); PLT CLUMP 1; SCAN SMEAR FLAG 1
[2022-01-27 10:47] LABS: Hematocrit 40.9 % (37.0-47.0); Imm Gran Abs Auto 0.16 X10*3/uL (0.00-0.03); Imm Gran Pct Auto 1.3 % (0.0-0.4); Lymphocytes Absolute Auto 1.7 X10*3/uL (1.2-4.9); Lymphocytes Percent Auto 13.6 % (20-40); MANUAL DIFF FLAG SCAN; Mean Corpuscular HGB Conc 34.5 g/dl (31.0-35.0); Mean Corpuscular Volume 92.7 fL (80.0-98.0); Monocytes Absolute Auto 0.8 X10*3/uL (0.1-1.2); Monocytes Percent Auto 6.9 % (2-11); Neutrophils Absolute Auto 9.4 x10*3/uL (2.0-8.3); Neutrophils Percent Auto 77.5 % (45-73); Red Blood Count 4.41 X10*6/uL (4.20-5.50); Red Cell Distribution Width 13.4 % (11.0-16.0)
[2022-01-27 11:08] LABS: B Type Natriuretic Peptide 30 pg/mL (<100); Platelet Count 188 X10*3/uL (160-400); Troponin-I High Sensitivity 7.4 ng/L (<3.5-17.0); White Blood Count 12.2 X10*3/uL (4.8-10.8)
[2022-01-27 11:09] LABS: SLIDE REVIEW VERIFIED
[2022-01-27 11:11] LABS: Alanine Aminotransferase 13 U/L (0-31); Albumin Level 4.1 g/dL (3.5-5.0); Alkaline Phosphatase 51 U/L (39-117); Anion Gap 16 (12-20); Aspartate Amino Transferase 13 U/L (5-31); Bilirubin Direct 0.3 mg/dL (0.0-0.5); Bilirubin Total 0.8 mg/dL (0.0-1.0); Blood Urea Nitrogen 21 mg/dL (9-16); Calcium 9.7 mg/dL (8.4-10.2); Carbon Dioxide 27 mmol/L (22-29); Chloride 98 mmol/L (96-108); Estimated Glomerular Filt Rate > 60; Glucose Random 87 mg/dL (60-115); Lipase 11 U/L (8-78); Potassium 3.4 mmol/L (3.3-5.1); Sodium 138 mmol/L (135-145); Total Protein 6.7 g/dL (6.5-8.0)
[2022-01-27 11:24] LABS: Influenza A PCR NEGATIVE (Negative); Influenza B PCR NEGATIVE (Negative); Resp Syncy Virus RNA Qual PCR NEGATIVE (Negative); SARS COV2 PCR INHOUSE NEGATIVE (Negative)
[2022-01-27 11:45] LABS: D Dimer High Sensitivity 399 NG/ML
[2022-01-27 12:04] VITALS: BP 154/73; PULSE 74; RESP 12; TEMP 36.4; O2SAT 95
[2022-01-27] MEDS: iohexoL 350 MG/ML 100 ML INFUS..BTL 65 ML IV (14:13)
[2022-01-27 15:02] VITALS: BP 133/95; PULSE 72; RESP 16; O2SAT 94
== END 2022-01-27 16:15 | disposition home or self-care (01) ==
PROVIDERS: Emergency Provider Emergency Medicine; PCP Internal Medicine
DX: R06.00 Dyspnea, unspecified (principal); R06.02 Shortness of breath; Z87.891 Personal history of nicotine dependence; Z20.822 Contact with and (suspected) exposure to COVID-19
CPT/HCPCS: 0241U; 36415; 71045; 71275; 80048; 80076; 83690; 83880; 84484; 85025; 85379; 93005; 99284; Q9967

== ENCOUNTER 2022-01-28 12:07 | Outpatient (REF) | payer MEDICARE, SELFPAY ==
[2022-01-28 13:51] LABS: C Reactive Protein 0.63 mg/dL (< or = 0.50)
[2022-01-28 13:52] LABS: B Type Natriuretic Peptide 30 pg/mL (<100); Troponin-I High Sensitivity 6.7 ng/L (<3.5-17.0)
== END 2022-01-28 12:08 | disposition home or self-care (01) ==
LOC: HO.LAB 12:07
PROVIDERS: PCP Internal Medicine; Visit Provider Internal Medicine
DX: R06.02 Shortness of breath (principal)
CPT/HCPCS: 36415; 82550; 83880; 84484; 86140

== ENCOUNTER 2022-04-09 11:00 | Outpatient (REF) | payer MEDICARE, SELFPAY ==
[2022-04-09 11:26] LABS: MANUAL DIFF FLAG NO
[2022-04-09 11:36] LABS: Basophils Percent Auto 0.2 % (0-2); Eosinophils Percent Auto 0.1 % (0-4); Hematocrit 43.4 % (37.0-47.0); Hemoglobin 14.9 g/dl (12.0-16.0); Imm Gran Abs Auto 0.13 X10*3/uL (0.00-0.03); Imm Gran Pct Auto 0.9 % (0.0-0.4); Lymphocytes Absolute Auto 1.7 X10*3/uL (1.2-4.9); Lymphocytes Percent Auto 11.5 % (20-40); Mean Corpuscular HGB Conc 34.3 g/dl (31.0-35.0); Mean Corpuscular Hemoglobin 31.2 pg (27.0-33.0); Monocytes Absolute Auto 0.7 X10*3/uL (0.1-1.2); Monocytes Percent Auto 4.8 % (2-11); Neutrophils Absolute Auto 12.3 x10*3/uL (2.0-8.3); Neutrophils Percent Auto 82.5 % (45-73); Platelet Count 274 X10*3/uL (160-400); Red Blood Count 4.77 X10*6/uL (4.20-5.50); Red Cell Distribution Width 12.6 % (11.0-16.0); White Blood Count 14.9 X10*3/uL (4.8-10.8)
[2022-04-09 12:46] LABS: C Reactive Protein 0.46 mg/dL (< or = 0.50); Estimated Glomerular Filt Rate > 60
[2022-04-09 14:59] LABS: Erythrocyte Sedimentation Rate 21 MM/HR (0-20)
== END 2022-04-09 11:01 | disposition home or self-care (01) ==
LOC: HO.LAB 11:00
PROVIDERS: PCP Internal Medicine; Visit Provider Internal Medicine Rheumatology
DX: M17.0 Bilateral primary osteoarthritis of knee (principal); M19.041 Primary osteoarthritis, right hand; M19.042 Primary osteoarthritis, left hand; M35.3 Polymyalgia rheumatica; M81.0 Age-related osteoporosis without current pathological fracture; Z79.1 Long term (current) use of non-steroidal anti-inflammatories (NSAID); Z79.52 Long term (current) use of systemic steroids; Z79.899 Other long term (current) drug therapy
CPT/HCPCS: 20610; 36415; 82565; 85025; 85652; 86140; 99212

== ENCOUNTER 2022-04-19 13:58 | Outpatient (REF) | payer MEDICARE, SELFPAY ==
--- NOTE | 2022-04-19 | PFT_ITS ---
FLOWS: FEV1 101% of predicted at 1.52 L. FVC 102% of predicted at 2.10 L. FEV1 to FVC ratio of 0.72. No bronchodilator response except in small to medium airways. LUNG VOLUMES: Total lung capacity 97% of predicted at 4.21 L. Residual volume 107% of predicted at 0.38 L. Slow vital capacity 88% of predicted at 1.93 L. Expiratory reserve volume 85% of predicted at 0.28 L. Diffusion capacity is mildly decreased, diffusion capacity corrects to normal after adjustment for alveolar ventilation. IMPRESSION: No obstructive or restrictive ventilatory defect. No bronchodilator response. Essentially normal pulmonary function test. Black Taylor MD AP/MODL / [id number]
== END 2022-04-19 13:59 | disposition home or self-care (01) ==
LOC: HO.RESP 13:58
PROVIDERS: PCP Internal Medicine; Visit Provider Internal Medicine
DX: R06.02 Shortness of breath (principal)
CPT/HCPCS: 94060; 94727; 94729

== ENCOUNTER → 2022-04-22 09:15 | Outpatient (REF) | payer MEDICARE, SELFPAY ==
--- NOTE | 2022-04-22 09:19 | CA_ITS ---
Transthoracic Echocardiogram Patient (Last, First, Middle): Vero Ramírez, Gender: Female Date of : 1940 Age: 81 Procedure Date: 04/22/2022 Procedure Type: Transthoracic Echocardiogram Location: OP Height: 149.86 cm Weight: 77.11 kg BSA: 1.72 m2 Heart Rate: bpm Jet Mechanic: AARON Referring MD: Ismael Davis MD Gas Leak Inspector: Jax Clarke MD Symptoms: R06.02 SOB Study Quality: Adequate ECG Rhythm: Sinus Conclusions: - 1. Borderline LV systolic function with LVEF of 55-60% with reduced longitudinal strain, with impaired relaxation filling pattern 2. Normal cardiac valvular Doppler 3. Mildly dilated ascending aorta 4. No gross pericardial effusion Findings Left Ventricle Normal left ventricular size, thickness, and systolic function. The visually estimated ejection fraction is between 55-60%. Spectral Doppler is indicative of an impaired relaxation filling pattern. E/E prime ratio is between 8 and 15 consistent with indeterminate filling pressures. Peak GLS is -15.3%, which s reduced. Right Ventricle Normal right ventricular cavity size and systolic function. Atria The left atrium is normal in size. There is lipomatous hypertrophy of the interatrial septum. There is no evidence of interatrial shunt. The right atrium is normal in size. Aortic Valve The aortic valve structure and function is likely normal. There is no aortic valve stenosis. There is no aortic valve regurgitation. Mitral Valve There is mild anterior mitral leaflet thickening. There is trace mitral valve regurgitation. There is no mitral valve stenosis. Pulmonic Valve The pulmonic valve was not well visualized. Tricuspid Valve The tricuspid valve was not well visualized. Tricuspid regurgitation envelope is inadequate for calculation of right ventricular systolic pressure. Normal right atrial pressure. Great Vessels The pulmonary artery was not well visualized. There is mild dilatation of the ascending aorta measuring 3.70 cm. Small plaque is seen in the sino tubular ridge and arch. Venous The inferior vena cava is normal in size and collapses greater than 50% with inspiration. Pericardium/Pleural There is no evidence of pericardial effusion. Prior Study Comparison No prior study available for comparison. Measurements 2D Linear Measurements IVSd: 0.81 0.6-0.9/0.6-1.0 cm LVIDd: 3.73 3.9-5.3/4.2-5.9 cm LVIDd Index: 2.17 2.4-3.2/2.2-3.1 cm/m2 LVIDs: 2.42 2.0-3.6 cm LVPWd: 0.82 0.7-1.1 cm LA Diam: 3.30 2.7-3.8/3.0-4.0 cm LAIDs Index: 1.92 1.5-2.3 cm/m2 LV Mass: 106.09 67-162/88-224 g LV Mass Index: 61.68 43-95/49-115 g/m2 LVOT Diam: 2.00 3.0+(-)1.3 cm 2D Systolic Function EF 4C: 58.00 >55% EF 2C: 56.50 >55% EF BiP: 55.40 >55% Mitral Valve MV Pk E: 0.59 MV PK A: 0.84 MV Decel Time: 222.00 E/A: 0.70 E'Lateral: 5.66 E'Medial: 6.09 E/E' Med: 9.60 E/E' Lat: 10.40 PHT: 65.00 MVA PHT: 3.38 Decel [place]: 2.65 Aortic Valve AoV Pk Shmuel: 1.13 AoV Mn Shmuel: 0.73 AoV VTI: 0.22 AoV Pk Grad: 5.00 Aov Mn Grad: 2.00 JANEL Cont.VTI: 2.73 LVOT LVOT Pk Shmuel: 1.02 LVOT Mn Shmuel: 0.66 LVOT VTI: 0.19 LVOT Pk Grad: 4.00 LVOT Mn Grad: 2.00 LVOT Diam: 2.00 LVOT Area: 3.14 Diastolic Function MV Pk E: 0.59 MV Pk A: 0.84 E/A: 0.70 E'Medial: 6.09 E/E' Med: 9.60 E' Laterial: 5.66 E/E' Lat: 10.40 Right Ventricle TVS' Shmuel: 11.90 Tricuspid Valve RA Press: 3.00 Great Vessels Aorta Sinus of Valsalva: 3.40 2.0-3.5 cm Ao Asc: 3.70 2.1-3.4 cm Pulmonary Veins Pulm Vein S/D 1.80 Pulmonary Valve PV Pk Shmuel: 0.83 Peak PV Grad: 3.00 Updated in Other Vendor System with Status of Final Jax Clarke MD electronically signed on 04/22/2022 11:53:34 AM with status of Final
== END ==
LOC: HO.CARD 09:15
PROVIDERS: PCP Internal Medicine; Visit Provider Internal Medicine
DX: R06.02 Shortness of breath (principal); Z87.891 Personal history of nicotine dependence
CPT/HCPCS: 93306; 93356

== ENCOUNTER 2022-06-06 11:02 | Outpatient (REF) | payer MEDICARE, SELFPAY ==
[2022-06-06 14:05] LABS: C Reactive Protein 0.33 mg/dL (< or = 0.50)
[2022-06-06 14:44] LABS: Erythrocyte Sedimentation Rate 25 MM/HR (0-20)
== END 2022-06-06 11:03 | disposition home or self-care (01) ==
LOC: HO.10HDL 11:02
PROVIDERS: Visit Provider Internal Medicine Rheumatology
DX: M19.041 Primary osteoarthritis, right hand (principal); M19.042 Primary osteoarthritis, left hand; M17.0 Bilateral primary osteoarthritis of knee; M35.3 Polymyalgia rheumatica; M81.0 Age-related osteoporosis without current pathological fracture; Z79.1 Long term (current) use of non-steroidal anti-inflammatories (NSAID); Z79.52 Long term (current) use of systemic steroids
CPT/HCPCS: 36415; 85652; 86140; 99212

== ENCOUNTER → 2022-06-26 07:50 | Outpatient (REF) | payer MEDICARE, SELFPAY ==
--- NOTE | ~2022-06-26 | NM_ITS ---
Myocardial perfusion study Indication: Shortness of breath evaluate for myocardial ischemia Technique: The patient was brought in for a Lexiscan perfusion study on 06/26/2022. Patient performed low-level exercise and was injected 0.4 mg of Lexiscan intravenously. Within a minute of injection, 30 mCi of sestamibi was given intravenously. Images were obtained using the SPECT gamma camera interlaced with the gating device. Images were obtained in supine position. Resting perfusion study was performed on 06/27/2022. Patient was administered 30 mCi of sestamibi intravenously at rest. Images were then obtained in supine position. Images obtained with and without CT attenuation. Total DLP 101 mGy-cm. Images were processed with the software and compared side to side in short axis, horizontal long axis and vertical long axis views. Findings: The stress perfusion study showed non attenuated images show overall normal uptake of radiotracer in all segments of LV myocardium. Attenuated corrected images show mildly reduced uptake in the apex of the LV myocardium.. The gated study shows normal LV systolic function with calculated LVEF of 63%. LV cavity is normal and size. The gated study shows normal systolic wall thickening and contraction of segments. Resting study shows no significant change compared to stress perfusion study. Gating at rest reveals normal systolic wall motion with ejection fraction at 68%. The findings are consistent with no clear reversible defect suggestive of ischemia. NM/NM ivette perf SPECT rest & str Impression: 1. Myocardial perfusion imaging study shows normal myocardial perfusion 2. Gated LVEF is 63% 3. Transient ischemic dilatation not present EKG is Nondiagnostic for ischemia
--- NOTE | 2022-06-26 07:53 | CA_ITS ---
Acquisition Time: 2022-06-26 08:01:20 Total Exercise Time: 00:02:00 Test Indications: SOB Medications: SEE CHART Protocol: LEXISCAN Max HR: 100 BPM 70% of Pred: 141 BPM Max BP: 136/082 mmHG Max Work Load: 1.0 METS PT UNDERWENT DEAN/MIBI PROTOCOL SITTING. NO C/O CP OR SOB. SOME MILD NAUSEA WITH DEAN INFUSION. OCC PVC'S AND PAC'S. NO EKG CHANGES. AWAIT SCAN RESULTS. Referred By: Ismael Ellis Overread By: RON ELLIS MD
== END ==
LOC: HO.CARD 07:50
PROVIDERS: PCP Internal Medicine; Visit Provider Internal Medicine
DX: R06.02 Shortness of breath (principal)
CPT/HCPCS: 78452; 93017; A9500; J0280; J2785

== ENCOUNTER 2022-09-04 12:39 | Outpatient (REF) | payer MEDICARE, SELFPAY ==
[2022-09-04 14:39] LABS: Erythrocyte Sedimentation Rate 34 MM/HR (0-20)
== END 2022-09-04 12:40 | disposition home or self-care (01) ==
LOC: HO.LAB 12:39
PROVIDERS: PCP Internal Medicine; Visit Provider Internal Medicine Rheumatology
DX: M35.3 Polymyalgia rheumatica (principal); M17.0 Bilateral primary osteoarthritis of knee; M75.81 Other shoulder lesions, right shoulder; M19.041 Primary osteoarthritis, right hand; M19.042 Primary osteoarthritis, left hand; Z79.1 Long term (current) use of non-steroidal anti-inflammatories (NSAID)
CPT/HCPCS: 36415; 85652; 86140; 99212

== ENCOUNTER → 2022-09-23 08:00 | Outpatient (BNVA) | payer MEDICARE, SELFPAY | PROVIDERS: PCP Internal Medicine; Referring Provider Internal Medicine; Visit Provider Internal Medicine Rheumatology | DX: M75.81 Other shoulder lesions, right shoulder (principal); M35.3 Polymyalgia rheumatica | CPT/HCPCS: 20610; 99212 ==

== ENCOUNTER 2022-11-28 09:21 | Outpatient (REF) | payer MEDICARE, SELFPAY ==
--- NOTE | ~2022-11-28 | XR_ITS ---
EXAMINATION: XR SHOULDER, RIGHT CLINICAL INFORMATION: Lesion. COMPARISON: Radiographs dated 06/27/2021. TECHNIQUE: AP external rotation, Grashey, scapular Y, and axillary views of the right shoulder. FINDINGS: There is mild bony demineralization. The glenohumeral joint is intact. The acromioclavicular and coracoclavicular intervals are normal. There is mild osteoarthritic change of the acromioclavicular joint. No fracture or dislocation is seen. There is some narrowing of the rotator cuff interval, with cortical irregularity of the greater tuberosity of the proximal right humerus. No focal soft tissue calcification or foreign body is seen. There is no right pneumothorax. There is right apical pleural thickening. XR/XR shoulder RT min 2V IMPRESSION: 1. There is mild osteoarthritic change of the right acromioclavicular joint. 2. Findings suggest possible right rotator cuff impingement. No dontae calcific tendinitis is noted.
[2022-11-28 11:20] LABS: C Reactive Protein 0.89 mg/dL (< or = 0.50)
[2022-11-28 11:38] LABS: Erythrocyte Sedimentation Rate 30 MM/HR (0-20)
== END 2022-11-28 09:22 | disposition home or self-care (01) ==
LOC: HO.LAB 09:21
PROVIDERS: PCP Internal Medicine; Visit Provider Internal Medicine Rheumatology
DX: M35.3 Polymyalgia rheumatica (principal); M75.81 Other shoulder lesions, right shoulder; M19.041 Primary osteoarthritis, right hand; M17.0 Bilateral primary osteoarthritis of knee; Z79.1 Long term (current) use of non-steroidal anti-inflammatories (NSAID); Z79.52 Long term (current) use of systemic steroids
CPT/HCPCS: 36415; 73030; 85652; 86140; 99212

== ENCOUNTER 2022-12-07 13:50 | Inpatient (IN) | payer MEDICARE, SELFPAY ==
[2022-12-07] VITALS (8 sets, daily range): BP systolic 122–152; BP diastolic 69–90; PULSE 84–106; RESP 16–21; TEMP 36.6–37.2; O2SAT 92–98; BMI 27.4
--- NOTE | ~2022-12-07 | CT_ITS ---
EXAMINATION: CT ANGIOGRAM OF THE CHEST WITH AND WITHOUT CONTRAST (CT PULMONARY ANGIOGRAM FOR PE) CLINICAL INFORMATION: Shortness of breath, wheezing and hypoxia COMPARISON: CT angiogram chest 01/27/2022 TECHNIQUE: Prior to contrast administration, noncontrast localization images were obtained. Subsequently, multidetector volumetric imaging was performed from the thoracic inlet to below the diaphragms following the administration of 65 mL Omnipaque 350 intravenous contrast. No contrast reaction reported Sagittal, coronal, and MIP oblique sagittal reformatted images were obtained on the CT workstation, uploaded to PACS, and reviewed. This CT examination was performed using dose optimization techniques as appropriate, variously including the following: *Automated exposure control *Adjustment of mA and/or kV according to patient size (this includes techniques or standardized protocols for targeted exams where dose is matched to indication/reason for exam; i.e. extremities or head) *Use of iterative reconstruction technique Total exam dose-length product 319 mGy-cm FINDINGS: QUALITY OF STUDY/CONTRAST BOLUS: Satisfactory. PULMONARY ARTERIES: No central or segmental pulmonary emboli. THORACIC AORTA: No aneurysm or dissection. Calcific atherosclerotic changes are present. LUNG: No focal consolidation, nodules or masses. PLEURA: No pleural effusion or pneumothorax. MEDIASTINUM: Normal heart size. No pericardial effusion. No hilar or mediastinal lymphadenopathy. No evidence of septal bowing or right heart strain. CORONARY ARTERY CALCIFICATION: Present CHEST WALL/AXILLA: No axillary or internal mammary lymphadenopathy. OSSEOUS STRUCTURES: No acute or suspicious osseous abnormality. UPPER ABDOMEN: Again seen are 2 water density cysts in the right lobe of the liver, also present on prior exam. No reflux of contrast into the hepatic veins to suggest elevated right heart pressures. CT/CT angio chest PE protocol IMPRESSION: No evidence of pulmonary emboli. VTE: negative.
--- NOTE | ~2022-12-07 | XR_ITS ---
EXAMINATION: XR CHEST CLINICAL INFORMATION: Shortness of breath COMPARISON: Chest x-ray 01/27/2022 TECHNIQUE: Frontal view of the chest was obtained. FINDINGS: No airspace consolidation. No pleural effusion or pneumothorax. Normal cardiomediastinal silhouette. No cardiomegaly or evidence pulmonary edema. No acute osseous injury. XR/XR chest 1V IMPRESSION: No acute pulmonary disease.
--- NOTE | ~2022-12-07 | XR_ITS ---
EXAMINATION: XR CHEST CLINICAL INFORMATION: Dyspnea COMPARISON: Chest radiographs 12/07/2022, 01/27/2022 TECHNIQUE: Portable upright AP view of the chest was obtained. FINDINGS: The lungs are clear. There is no pneumothorax, airspace consolidation, vascular congestion, or effusion. Heart size normal. Costophrenic sulci are clear. There is some mild apical pleural thickening similar to prior studies. The hilar and mediastinal contours and visualized bony structures are stable. XR/XR chest 1V IMPRESSION: Lungs clear. No acute intrathoracic disease.
--- NOTE | 2022-12-07 14:01 | PC.NURSE ---
82 y/o F BIBA from home with SOB/cough/flu-like sx. pt changed into gown, placed on monitor. IV in place. awaiting MD nicholson
--- NOTE | 2022-12-07 14:19 | ECG_ITS ---
Test Reason : sob Blood Pressure : / mmHG Vent. Rate : 088 BPM Atrial Rate : 088 BPM P-R Int : 144 ms QRS Dur : 078 ms QT Int : 354 ms P-R-T Axes : 065 008 058 degrees QTc Int : 428 ms Sinus rhythm with occasional Premature ventricular complexes Otherwise normal ECG When compared with ECG of 27-JAN-2022 10:15, Premature ventricular complexes are now Present Premature atrial complexes are no longer Present Referred By: Andreina Khan Electronically Signed By:KEON SHARIF
[2022-12-07] MEDS: Albuterol Sulfate (0.083%) 2.5 MG/3 ML VIAL.NEB 5 MG INHALE (14:47)
--- NOTE | 2022-12-07 14:50 | PC.NURSE ---
labs drawn and sent, respiratory panel sent, respiratory at bedside for breathing treatmnent
[2022-12-07 14:52] LABS: MANUAL DIFF FLAG NO
[2022-12-07 14:59] LABS: Basophils Percent Auto 0.3 % (0-2); Eosinophils Percent Auto 0.4 % (0-4); Hematocrit 40.7 % (37.0-47.0); Hemoglobin 14.2 g/dl (12.0-16.0); INTERNATIONAL NORM RATIO 1.1 (0.9-1.1); Imm Gran Abs Auto 0.06 X10*3/uL (0.00-0.03); Imm Gran Pct Auto 0.8 % (0.0-0.4); Lymphocytes Absolute Auto 2.1 X10*3/uL (1.2-4.9); Lymphocytes Percent Auto 28.5 % (20-40); Mean Corpuscular HGB Conc 34.9 g/dl (31.0-35.0); Mean Corpuscular Hemoglobin 31.6 pg (27.0-33.0); Mean Corpuscular Volume 90.4 fL (80.0-98.0); Mean Platelet Volume 10.3 fL (9.4-12.3); Monocytes Absolute Auto 0.9 X10*3/uL (0.1-1.2); Monocytes Percent Auto 12.4 % (2-11); Neutrophils Absolute Auto 4.2 x10*3/uL (2.0-8.3); Neutrophils Percent Auto 57.6 % (45-73); Platelet Count 217 X10*3/uL (160-400); Prothrombin Time 12.3 SEC (10.0-13.1); Red Cell Distribution Width 13.1 % (11.0-16.0); SCAN SMEAR FLAG 1; White Blood Count 7.3 X10*3/uL (4.8-10.8)
[2022-12-07 15:24] LABS: B Type Natriuretic Peptide < 10 pg/mL (<100)
[2022-12-07 15:27] LABS: Troponin-I High Sensitivity 9.3 ng/L (<3.5-17.0)
[2022-12-07 15:30] LABS: Influenza A PCR NEGATIVE (Negative); Influenza B PCR NEGATIVE (Negative); Resp Syncy Virus RNA Qual PCR NEGATIVE (Negative); SARS COV2 PCR INHOUSE NEGATIVE (Negative)
[2022-12-07] MEDS: methylPREDNISolone Sod Succ 125 MG/2 ML VIAL 60 MG IVPUSH ×2 (15:35→19:28)
--- NOTE | 2022-12-07 15:46 | ED.URI ---
HPI - URI/Sore Throat General Chief Complaint: Upper Respiratory Symptoms Stated Complaint: FLU-LIKE,VOMIT,WEAKNESS,DIFF BREATHING Time Seen by Provider: 12/07/22 14:08 Source: patient and EMS Mode of arrival: EMS History of Present Illness HPI Narrative: 82-year-old female with a past medical history of osteoarthritis, HLD, HTN, osteoporosis, polymyalgia rheumatica, presenting to the ED complaining of productive cough, increasing SOB, orthopnea, chest discomfort with cough, nausea, vomiting, and diarrhea x1 week. Reports decreased p.o. intake /inability to tolerate p.o. Admits to mild epigastric abdominal pain suspected from vomiting. Denies fever, chills, recent travel, sick contacts, pedal edema MD elicited complaint: cough Onset (ago): week(s) Related Data Home Medications Medication Instructions Recorded Confirmed alendronate 70 mg tablet 70 mg PO QWEEK 04/13/21 11/28/22 fexofenadine 180 mg tablet 180 mg PO DAILY 04/13/21 11/28/22 fluticasone propionate 50 1 spray intranasal DAILY 04/13/21 11/28/22 mcg/actuation nasal spray,suspension (Allergy Relief (fluticasone)) omeprazole 20 mg capsule,delayed 20 mg PO DAILY 04/13/21 11/28/22 release simvastatin 20 mg tablet 20 mg PO DAILY 04/13/21 11/28/22 albuterol sulfate 90 mcg/actuation 2 puff inhalation Q6H PRN 04/09/22 11/28/22 aerosol inhaler (ProAir HFA) hydrochlorothiazide 25 mg tablet 25 mg PO DAILY 04/09/22 11/28/22 levothyroxine 25 mcg capsule 25 mcg PO DAILY 04/09/22 11/28/22 folic acid 1 mg tablet 1 mg PO DAILY 11/28/22 11/28/22 ketorolac 0.5 % eye drops 1 drp ophthalmic (eye) Q6-8H PRN 11/28/22 11/28/22 Previous Rx's Medication Instructions Recorded celecoxib 200 mg capsule 200 mg PO DAILY #30 caps 09/04/22 prednisone 5 mg tablet See Rx Instructions .Route 09/10/22 .COMPLEX #45 tabs Allergies Allergy/AdvReac Type Severity Reaction Status Date / Time naproxen [NAPROXEN] Allergy Intermediate BLISTERS Verified 12/07/22 13:58 IN MOUTH Sulfa (Sulfonamide Allergy Intermediate BLISTERS Verified 12/07/22 13:58 Antibiotics) ON TONGUE [SULFA (SULFONAMIDE ANTIBIOTICS)] Review of Systems Review of Systems: Constitutional: No Fever, No Chills, No Fatigue, No Malaise ENT/Mouth: No Ear Pain, No Nasal Congestion, No sore throat, No Rhinorrhea, No Swallowing Difficulty Eyes: No Eye Pain, No Swelling, No Redness, No Vision Changes Cardiovascular: No Chest Pain, + SOB, No Dyspnea on Exertion, + Orthopnea, No Edema, No Palpitations Respiratory: + Cough, No Sputum, + Wheezing, No Dyspnea Gastrointestinal: + Nausea, + Vomiting, + Diarrhea, No Constipation, + Abdominal pain Genitourinary: No Dysuria, No Urinary Frequency, No Hematuria, No Flank Pain Musculoskeletal: No joint pain, No Myalgias, No Joint Swelling Skin: No Skin Lesions, No rash Neuro: No Weakness, No Numbness,No Dizziness, No Headache Yes all other systems are reviewed and are negative Constitutional: Constitutional: Reports as per [facility] Past Medical History Attestation statement: The following information was validated with the patient. Surgical History Hx of cholecystectomy Hx of hysterectomy Social History Social History Alcohol intake: current Alcohol intake frequency: holidays/special occasions only Patient Tobacco Use Status: Former Tobacco user Tobacco use type: Cigarette Cigarettes Per Day: 15 Years Smoked: 4 Substance Use Type: Marijuana Advance Directives: No Advance Directives Information Provided: Yes Physical Exam Vital Signs: Vital Signs: Last Vital Signs Temp 97.8 F 12/07/22 18:00 Pulse 87 12/07/22 18:00 Resp 16 12/07/22 18:00 BP 122/70 12/07/22 18:00 Pulse Ox 98 12/07/22 18:00 O2 Del Method 12/07/22 18:00 BMI result Body Mass Index 27.4 Const: General: cooperative and no acute distress Orientation/consciousness: patient oriented x3 Limitations: no limitations HEENT: Head: Yes normal to inspection and Yes atraumatic Ears: hearing grossly normal bilaterally General nose exam: Normal external nose present Face and sinus: Yes normal facial exam Eyes: General: appearance normal, both eyes and all related structures EOM: EOMs intact bilaterally Neck: Neck: Yes normal visual inspection and Yes no meningeal signs Resp: Effort & Inspection: no respiratory distress Auscultation: wheezes expiratory wheezes and throughout Cardio: Rate: regular rate Heart sounds: S1 normal heart sound present and S2 normal heart sound present GI: Inspection: Yes normal to inspection Palpation (GI): Soft to palpation, Tenderness to palpation present (GI) in the epigastrum; with no rebound tenderness, no guarding and not rigid : General: Yes no CVA tenderness Back/Spine/Pelvis: Back: no CVA tenderness Skin: Rashes: no rashes Wounds: no wounds Neuro: General: patient oriented x3, tone normal and no meningeal signs Gait exam (Neuro): Normal gait present Extrem: General: Yes normal to inspection, Yes no pedal edema and Yes no calf tenderness Course Course Course Narrative: - No leukocytosis. Initial troponin 9.3 > will obtain 3hr repeat -COVID/FLU/RSV negative XR chest 1V IMPRESSION: No acute pulmonary disease. ? 1614-- on re-evaluation patient is still with audible expiratory wheeze. Due to CXR being unremarkable obtain CTA to rule out PE/underlying pneumonia. patient desatted to 88% on RA with respiratory. Plan will be for admission -1733-- hypokalemic to 2.9 > 60 mEq p.o. repletion ordered CT angio chest PE protocol IMPRESSION: No evidence of pulmonary emboli. VTE: negative. ? >> plan to admit for further management Medications Administered Discontinued Medications Generic Name Dose Route Start Last Admin Trade Name Sharmaine PRN Reason Stop Dose Admin Albuterol Sulfate 5 mg 12/07/22 14:18 12/07/22 14:47 Albuterol Sulfate (0.083%) 2.5 Mg/3 Ml Vial.Neb INHALE 12/07/22 14:19 5 mg ONCE ONE Administration Albuterol Sulfate 2.5 mg/ 0 mg 12/07/22 18:00 12/07/22 18:12 Ipratropium [place] 0.5 mg INHALE 12/07/22 18:01 Not Given ONCE ONE Iohexol 100 ml 12/07/22 16:53 12/07/22 16:54 Iohexol 350 Mg/Ml 100 Ml Infus..Btl IV 12/07/22 16:54 65 ml ONCE ONE Administration Methylprednisolone Sodium Succinate 60 mg 12/07/22 15:25 12/07/22 15:35 Methylprednisolone Sod Succ 125 Mg/2 Ml Vial IVPUSH 12/07/22 15:26 60 mg ONCE ONE Administration Medical Decision Making Medical Decision Making MDM Narrative: 82-year-old female with a past medical history of osteoarthritis, HLD, HTN, osteoporosis, polymyalgia rheumatica, presenting to the ED complaining of productive cough, increasing SOB, orthopnea, chest discomfort with cough, nausea, vomiting, and diarrhea x1 week. On exam satting 92% on RA desatted to 88% with respiratory, diffuse expiratory wheeze noted throughout. Abdomen soft with mild epigastric tenderness, no rebound or guarding, no pedal edema/calf tenderness. Concern for viral illness vs bronchitis vs pneumonia. Lower suspicion for ACS/PE or CHF. Concern for dehydration/metabolic abnormalities vs pancreatitis. Lower suspicion for cholecystitis /lithiasis, appendicitis or diverticulitis Plan: EKG, labs, CXR, COVID-19/influenza /RSV testing, albuterol neb, IV Solu-Medrol, anticipate admission Please refer to course for remaining clinical decision making, interpretation of labs/imaging results, and discussions with consultants and/or family members. Differential Diagnosis Differential Diagnoses: The differential diagnosis associated with the presentation includes as above Admission/Observation Consideration of admission/observation: Escalation of care including admission/observation considered Consult Healthcare Provider Management of the patient was discussed with: Hospitalist Lab Data [facility] Lab Attestation statement: I reviewed the patient's lab results. 12/07/22 14:41 12/07/22 14:41 Labs: Lab Results 12/07/22 12/07/22 12/07/22 Range/Units 14:41 14:41 14:41 WBC 7.3 (4.8-10.8) X10*3/uL RBC 4.50 (4.20-5.50) X10*6/uL Hgb 14.2 (12.0-16.0) g/dl Hct 40.7 (37.0-47.0) % MCV 90.4 (80.0-98.0) fL MCH 31.6 (27.0-33.0) pg MCHC 34.9 (31.0-35.0) g/dl RDW 13.1 (11.0-16.0) % Plt Count 217 (160-400) X10*3/uL MPV 10.3 (9.4-12.3) fL Immature Gran % (Auto) 0.8 H (0.0-0.4) % Neut % (Auto) 57.6 (45-73) % Lymph % (Auto) 28.5 (20-40) % [place] % (Auto) 12.4 H (2-11) % Eos % (Auto) 0.4 (0-4) % Baso % (Auto) 0.3 (0-2) % Lymph # (Auto) 2.1 (1.2-4.9) X10*3/uL [place] # (Auto) 0.9 (0.1-1.2) X10*3/uL Eos # (Auto) 0.0 (0.0-0.4) X10*3/uL Baso # (Auto) 0.0 (0.0-0.2) X10*3/uL Abs Immat Gran (auto) 0.06 H (0.00-0.03) X10*3/uL Absolute Neuts (auto) 4.2 (2.0-8.3) x10*3/uL Absolute Nucleated RBC 0.000 (0.0-0.012) X10*3/uL Nucleated RBC % (auto) 0.0 (0.0-0.2) /100WBC PT 12.3 (10.0-13.1) SEC INR 1.1 (0.9-1.1) Sodium (135-145) mmol/L Potassium (3.3-5.1) mmol/L Chloride (96-108) mmol/L Carbon Dioxide (22-29) mmol/L Anion Gap (12-20) BUN (9-16) mg/dL Creatinine (0.5-1.4) mg/dL Estim Creat Clear Calc Estimated GFR Random Glucose (60-115) mg/dL Calcium (8.4-10.2) mg/dL Magnesium (1.6-2.6) mg/dL Total Bilirubin (0.0-1.0) mg/dL Direct Bilirubin (0.0-0.5) mg/dL AST (5-31) U/L ALT (0-31) U/L Alkaline Phosphatase (39-117) U/L Troponin I High Sens 9.3 (<3.5-17.0) ng/L B-Natriuretic Peptide (<100) pg/mL Total Protein (6.5-8.0) g/dL Albumin (3.5-5.0) g/dL Lipase (8-78) U/L Influenza Type A (PCR) (Negative) Influenza Type B (PCR) (Negative) RSV RNA Qual (PCR) (Negative) SARS-CoV-2 RNA (RT-PCR) (Negative) 12/07/22 12/07/22 12/07/22 Range/Units 14:41 14:41 16:01 WBC (4.8-10.8) X10*3/uL RBC (4.20-5.50) X10*6/uL Hgb (12.0-16.0) g/dl Hct (37.0-47.0) % MCV (80.0-98.0) fL MCH (27.0-33.0) pg MCHC (31.0-35.0) g/dl RDW (11.0-16.0) % Plt Count (160-400) X10*3/uL MPV (9.4-12.3) fL Immature Gran % (Auto) (0.0-0.4) % Neut % (Auto) (45-73) % Lymph % (Auto) (20-40) % [place] % (Auto) (2-11) % Eos % (Auto) (0-4) % Baso % (Auto) (0-2) % Lymph # (Auto) (1.2-4.9) X10*3/uL [place] # (Auto) (0.1-1.2) X10*3/uL Eos # (Auto) (0.0-0.4) X10*3/uL Baso # (Auto) (0.0-0.2) X10*3/uL Abs Immat Gran (auto) (0.00-0.03) X10*3/uL Absolute Neuts (auto) (2.0-8.3) x10*3/uL Absolute Nucleated RBC (0.0-0.012) X10*3/uL Nucleated RBC % (auto) (0.0-0.2) /100WBC PT (10.0-13.1) SEC INR (0.9-1.1) Sodium 142 (135-145) mmol/L Potassium 2.9 L (3.3-5.1) mmol/L Chloride 102 (96-108) mmol/L Carbon Dioxide 26 (22-29) mmol/L Anion Gap 17 (12-20) BUN 18 H (9-16) mg/dL Creatinine 0.77 (0.5-1.4) mg/dL Estim Creat Clear Calc 61.0 Estimated GFR > 60 Random Glucose 95 (60-115) mg/dL Calcium 8.8 D (8.4-10.2) mg/dL Magnesium 1.7 (1.6-2.6) mg/dL Total Bilirubin 0.6 (0.0-1.0) mg/dL Direct Bilirubin 0.2 (0.0-0.5) mg/dL AST 24 (5-31) U/L ALT 28 (0-31) U/L Alkaline Phosphatase 58 (39-117) U/L Troponin I High Sens (<3.5-17.0) ng/L B-Natriuretic Peptide < 10 (<100) pg/mL Total Protein 6.2 L (6.5-8.0) g/dL Albumin 3.6 (3.5-5.0) g/dL Lipase 14 (8-78) U/L Influenza Type A (PCR) NEGATIVE (Negative) Influenza Type B (PCR) NEGATIVE (Negative) RSV RNA Qual (PCR) NEGATIVE (Negative) SARS-CoV-2 RNA (RT-PCR) NEGATIVE (Negative) Independent Interpretation I performed an independent interpretation of an: EKG Interpretation: my interpretation EKG sinus rhythm with occasional PVCs. IA interval 144. QRS 78. No STEMI. Radiology Impression Discussion of test interpretation with radiology: I have reviewed the radiologist's reading. External Record Review External record reviewed: Office record, Outpatient record, Prior outpatient labs and Prior outpatient radiology Chronic Conditions Patient?s care impacted by: Hypertension Critical Care Time Critical Care Time Critical Care Time: Yes Total Critical Care Time: 40 Attestation: I have personally provided critical care time exclusive of time spent on separately billable procedures. Time includes review of lab data, radiology results, discussion with consultants, and monitoring for potential decompensation. Intervention performed as documented. Discharge Plan Discharge Clinical Impression: Hypoxia, Acute viral syndrome, Hypokalemia Patient Disposition: Admitted As Inpatient
--- NOTE | 2022-12-07 15:54 | PC.NURSE ---
Contact from lab: Specimen hemolyzed. Plan at this time is for phlebotomy to come draw
--- NOTE | 2022-12-07 15:58 | PC.NURSE ---
labs hemolyzed for third time, phlebotomy called for fourth attempt
--- NOTE | 2022-12-07 16:00 | MHC.EDTECH ---
this pct assumed care of pt at 1500 ,1600 rounding done ,vitals sign taken ,pt here visiting .
[2022-12-07 16:26] LABS: Alanine Aminotransferase 28 U/L (0-31); Albumin Level 3.6 g/dL (3.5-5.0); Alkaline Phosphatase 58 U/L (39-117); Anion Gap 17 (12-20); Aspartate Amino Transferase 24 U/L (5-31); Bilirubin Direct 0.2 mg/dL (0.0-0.5); Bilirubin Total 0.6 mg/dL (0.0-1.0); Blood Urea Nitrogen 18 mg/dL (9-16); Calcium 8.8 mg/dL (8.4-10.2); Carbon Dioxide 26 mmol/L (22-29); Chloride 102 mmol/L (96-108); Estimated Glomerular Filt Rate > 60; Glucose Random 95 mg/dL (60-115); Lipase 14 U/L (8-78); Magnesium 1.7 mg/dL (1.6-2.6); Potassium 2.9 mmol/L (3.3-5.1); Sodium 142 mmol/L (135-145); Total Protein 6.2 g/dL (6.5-8.0)
[2022-12-07] MEDS: iohexoL 350 MG/ML 100 ML INFUS..BTL IV (16:54)
--- NOTE | 2022-12-07 17:01 | MHC.EDTECH ---
pt rang call summers to go to bathroom ,this pct walk with patient to restroom and back to bed ,pt void lg amount of urine .
[2022-12-07] MEDS: Potassium Chloride ER 20 MEQ TAB.ER.PRT 60 MEQ PO (18:00)
--- NOTE | 2022-12-07 18:01 | MHC.EDTECH ---
pt 1800 rounding done ,vitals sign taken ,pt repeated trop drawn and sent to lab .
--- NOTE | 2022-12-07 18:36 | P.HPHOSP_ITS ---
History of Present Illness Date of Service: 12/07/22 Chief Complaint: Shortness of breath 82-year-old female with a past medical history of osteoarthritis, HLD, HTN, osteoporosis, polymyalgia rheumatica, presenting to the ED complaining of productive cough, increasing SOB, orthopnea, chest discomfort with cough,? nausea, vomiting, and diarrhea x1 week.? Reports decreased p.o. intake /inability to tolerate p.o.??. Patient states has had similar respiratory complaints however not to this degree. In the emergency room CTA of the chest failed to demonstrate any acute pathology including heart failure or PE. She was given a DuoNeb and steroids per remains wheezy however without O2 requirement Review of Systems Review of Systems: denies chest pain Admits to shortness of breath with minimal movement Admits nausea no vomiting no diarrhea Denies fever chills PMFSH Surgical History Hx of cholecystectomy Hx of hysterectomy Social History Alcohol intake: current Alcohol intake frequency: holidays/special occasions only Patient Tobacco Use Status: Former Tobacco user Tobacco use type: Cigarette Cigarettes Per Day: 15 Years Smoked: 4 Substance Use Type: Marijuana Advance Directives: No Advance Directives Information Provided: Yes Meds Allergies Allergy/AdvReac Type Severity Reaction Status Date / Time naproxen [NAPROXEN] Allergy Intermediate BLISTERS Verified 12/07/22 13:58 IN MOUTH Sulfa (Sulfonamide Allergy Intermediate BLISTERS Verified 12/07/22 13:58 Antibiotics) ON TONGUE [SULFA (SULFONAMIDE ANTIBIOTICS)] Active Medications: Current Medications Acetaminophen (Acetaminophen 325 Mg Tablet) 650 mg PO Q6H PRN PRN Reason: Pain, Mild (Pain Scale 1-3) Enoxaparin Sodium (Enoxaparin Sodium 40 Mg/0.4 Ml Syringe) 40 mg SUBCUT Q24H [facility] Methylprednisolone Sodium Succinate (Methylprednisolone Sod Succ 125 Mg/2 Ml Vial) 60 mg IVPUSH ONCE ONE Stop: 12/07/22 18:36 Sodium Chloride (0.9 % Sodium Chloride Flush 3 Ml Syringe) 3 ml IVFLUSH QSHIFT [facility] Home Medications Medication Instructions Recorded Confirmed Last Taken Type alendronate 70 mg tablet 70 mg PO QWEEK 04/13/21 11/28/22 Unknown History fexofenadine 180 mg tablet 180 mg PO DAILY 04/13/21 11/28/22 Unknown History fluticasone propionate 50 1 spray intranasal DAILY 04/13/21 11/28/22 Unknown History mcg/actuation nasal spray,suspension (Allergy Relief (fluticasone)) omeprazole 20 mg capsule,delayed 20 mg PO DAILY 04/13/21 11/28/22 Unknown History release simvastatin 20 mg tablet 20 mg PO DAILY 04/13/21 11/28/22 Unknown History albuterol sulfate 90 mcg/actuation 2 puff inhalation Q6H PRN 04/09/22 11/28/22 Unknown History aerosol inhaler (ProAir HFA) hydrochlorothiazide 25 mg tablet 25 mg PO DAILY 04/09/22 11/28/22 Unknown History levothyroxine 25 mcg capsule 25 mcg PO DAILY 04/09/22 11/28/22 Unknown History folic acid 1 mg tablet 1 mg PO DAILY 11/28/22 11/28/22 Unknown History acetaminophen 650 mg 1 tab PO Q8H PRN pain 12/07/22 12/07/22 Unknown History tablet,extended release (Mapap Arthritis Pain) cholecalciferol (vitamin D3) 25 25 mcg PO DAILY 12/07/22 12/07/22 12/07/22 09:00 History mcg (1,000 unit) tablet (Vitamin D3) ibuprofen 800 mg tablet 1 tab PO TID PRN pain 12/07/22 12/07/22 Unknown History magnesium oxide 400 mg (241.3 mg 400 mg PO DAILY 12/07/22 12/07/22 12/07/22 09:00 History magnesium) tablet prednisone 5 mg tablet 2.5 mg PO BID 12/07/22 12/07/22 12/07/22 09:00 History Physical Exam Vital Signs and Narrative: Vital Signs: Last Vital Signs Temp 97.8 F 12/07/22 18:00 Pulse 87 12/07/22 18:00 Resp 16 12/07/22 18:00 BP 122/70 12/07/22 18:00 Pulse Ox 98 12/07/22 18:00 O2 Del Method 12/07/22 18:00 BMI result Body Mass Index 27.4 Const: Other: awake alert oriented x3 able to speak and short sentences HEENT: Other: membranes dry Resp: Other: diminished at bases with diffuse expiratory wheezes throughout all ro Cardio: Other: no S4; positive S1-S2; no S3 murmurs rubs or gallops GI: Other: soft nontender nondistended with normoactive bowel sounds. No acute peritoneal signs Neuro: Other: cranial nerves 2-12 grossly intact as tested. Motor 5/5 all extremities. Sensation intact. Cognition appropriate Extrem: Other: no edema bilaterally Results Labs 12/07/22 14:41 12/07/22 16:01 Labs: Laboratory Results - last 24 hr 12/07/22 12/07/22 12/07/22 14:41 14:41 14:41 MCV 90.4 MCH 31.6 MCHC 34.9 RDW 13.1 Plt Count 217 MPV 10.3 Immature Gran % (Auto) 0.8 H Neut % (Auto) 57.6 Lymph % (Auto) 28.5 [place] % (Auto) 12.4 H Eos % (Auto) 0.4 Baso % (Auto) 0.3 Lymph # (Auto) 2.1 [place] # (Auto) 0.9 Eos # (Auto) 0.0 Baso # (Auto) 0.0 Abs Immat Gran (auto) 0.06 H Absolute Neuts (auto) 4.2 Absolute Nucleated RBC 0.000 Nucleated RBC % (auto) 0.0 PT 12.3 INR 1.1 Anion Gap Estim Creat Clear Calc Estimated GFR Random Glucose Calcium Magnesium Total Bilirubin Direct Bilirubin AST ALT Alkaline Phosphatase Troponin I High Sens 9.3 B-Natriuretic Peptide Total Protein Albumin Lipase Influenza Type A (PCR) Influenza Type B (PCR) RSV RNA Qual (PCR) SARS-CoV-2 RNA (RT-PCR) 12/07/22 12/07/22 12/07/22 14:41 14:41 16:01 MCV MCH MCHC RDW Plt Count MPV Immature Gran % (Auto) Neut % (Auto) Lymph % (Auto) [place] % (Auto) Eos % (Auto) Baso % (Auto) Lymph # (Auto) [place] # (Auto) Eos # (Auto) Baso # (Auto) Abs Immat Gran (auto) Absolute Neuts (auto) Absolute Nucleated RBC Nucleated RBC % (auto) PT INR Anion Gap 17 Estim Creat Clear Calc 61.0 Estimated GFR > 60 Random Glucose 95 Calcium 8.8 D Magnesium 1.7 Total Bilirubin 0.6 Direct Bilirubin 0.2 AST 24 ALT 28 Alkaline Phosphatase 58 Troponin I High Sens B-Natriuretic Peptide < 10 Total Protein 6.2 L Albumin 3.6 Lipase 14 Influenza Type A (PCR) NEGATIVE Influenza Type B (PCR) NEGATIVE RSV RNA Qual (PCR) NEGATIVE SARS-CoV-2 RNA (RT-PCR) NEGATIVE Imaging Radiologist's Impressions: Impressions Chest X-Ray 12/07/22 15:04 IMPRESSION: No acute pulmonary disease. Chest CTA 12/07/22 16:56 IMPRESSION: No evidence of pulmonary emboli. VTE: negative. Assessment and Plan (1) Hypoxia: Status: Acute (2) Hypertension: Status: Acute (3) Hyperlipidemia: Status: Acute (4) Polymyalgia rheumatica: Status: Acute Plan 82-year-old female with a past medical history of osteoarthritis, HLD, HTN, osteoporosis, polymyalgia rheumatica, presenting to the ED complaining of productive cough, increasing SOB, orthopnea, chest discomfort with cough,? nausea, vomiting, and diarrhea x1 week.?In the emergency room CTA of the chest failed to demonstrate any acute pathology including heart failure or PE.? She was given a DuoNeb and steroids per remains wheezy however without O2 requirement 1.Acute SOB - no history of COPD/ reactive airway - given additional 60 of Solu-Medrol for a 120 loading dose - continue steroids at 60 IV q.6 hours starting in a.m. - DuoNebs q.4 hours p.r.n. - pulmonary consult in a.m. 2. Hypertension - acceptable control on current therapies - adjust as indicated 3. Hyperlipidemia - continue statin 4. PMR - steroid dependent. . . Hold prednisone while on methylprednisolone full code Lovenox patient will require 2 midnights inpatient stay going forward to treat acute shortness of breath with IV steroids and complete workup. This cannot be achieved a lesser acute setting Time Spent With Patient Time: Total time managing care of this patient today ____ minutes. Quality Stroke Does the patient have a stroke diagnosis?: No VTE Prior VTE?: No VTE Risk Level:: Medical - moderate - high VTE Device Contraindication: Treatment Not Indicated VTE Drug Contraindication: N/A - Med Ordered
--- NOTE | 2022-12-07 18:57 | PHA.MEDREC ---
Pharmacy Consult ? Medication Reconciliation Pharmacy has completed the medication reconciliation. Spoke to patient which had a med list with them and confirmed meds. Prednisone 5mg is now at 1/2 tab twice daily.
[2022-12-07] MEDS: Enoxaparin Sodium 40 MG/0.4 ML SYRINGE SUBCUT (19:28)
--- NOTE | 2022-12-07 19:52 | PC.NURSE ---
report received from ALEAH Jaramillo Pt ambulated to bathroom with RN, slightly unsteady gait with cane use. Pt reports feeling minimally short of breath at this time although she does endorse moving around makes it worse. Pt now back in bed resting comfortably with no complaints. Awaiting bed assignment
--- NOTE | 2022-12-07 22:01 | PC.NURSE ---
pt moved into hospital bed for comfort, reports 2/10 mid-sternal pain, pt reports it is due to her coughing. Pt provided with sandwich and water
--- NOTE | 2022-12-08 00:22 | PC.NURSE ---
pt sleeping, respirations are even and unlabored, skin pwd. no apparent distress
--- NOTE | 2022-12-08 00:47 | PC.NURSE ---
pt moved to room 3 so pt could have door on room. Pt was expressing upset due to another pt yelling. MD came to speak with pt to encrouage her not to AMA, pt agreeable to staying and is very grateful for moving her to room with a door
[2022-12-08 03:37] VITALS: PULSE 71; RESP 18; O2SAT 93
--- NOTE | 2022-12-08 05:17 | PC.NURSE ---
Pt sleeping with no sign of distress.
--- NOTE | 2022-12-08 05:57 | PC.NURSE ---
Gave report to the receiving Rn Chiara, Will transport pt to unit. Will continue to monitor.
[2022-12-08 07:54] VITALS: BP 123/87; PULSE 161; RESP 20; TEMP 36.6; O2SAT 94
[2022-12-08] MEDS: Atorvastatin Calcium 10 MG TABLET PO (08:11)
[2022-12-08] MEDS: 0.9 % Sodium Chloride Flush 3 ML SYRINGE IVFLUSH ×2 (08:11→20:52)
[2022-12-08] MEDS: Metoprolol Tartrate 5 MG/5 ML VIAL IVPUSH (08:11)
[2022-12-08] MEDS: Magnesium Oxide 400 MG TABLET PO (08:11)
[2022-12-08] MEDS: Acetaminophen 325 MG TABLET 650 MG PO (08:17)
--- NOTE | 2022-12-08 08:20 | MHC.CM.PN ---
CM met with Patient at bedside and addressed IMM with her, providing her with the original and placing a copy on the chart. Patient lives in a house with her /HCP and she uses a cane to assist with mobility. Patient required no services TRANSFER PUMPER and home/self care is the goal. CM has initiated and will follow for dc planning. Patient has received Moderna/covid vax x5 and her PCP is Dr. Ismael Davis.
[2022-12-08] MEDS: Potassium Chloride Packet 20 MEQ PACKET 40 MEQ PO ×2 (08:21→20:48)
--- NOTE | 2022-12-08 11:07 | PC.NURSE ---
pt in rapid A.FIB ~180s with ambulation this morning around 7:30. Pt short of breath - MD notified and came to bedside and assessed pt. pt had expiratory wheezes. sating 90s on RA. 5mg IV push metoprolol ordered and administered. pt HR ~80s.
[2022-12-08 12:00] VITALS: BP 120/84; PULSE 92; RESP 22; TEMP 36.1; O2SAT 94
--- NOTE | 2022-12-08 12:46 | HO.PM.IMPN ---
Subjective Subjective Date of Service: 12/08/22 Interval History: episode of AFib with rapid ventricular response that responded to 5 mg of IV Lopressor. Occurred while patient was ambulating to bathroom. Remains extremely short of breath with exertion; no O2 requirement thus far Review of Systems denies chest pain Admits to shortness of breath with minimal movement the resolves with rest Denies nausea vomiting diarrhea Denies Constitutional Constitutional: Reports as per HPI Physical Exam Vital Signs: Vital Signs: Last Vital Signs Temp 97.0 F 12/08/22 12:00 Pulse 92 12/08/22 12:00 Resp 22 H 12/08/22 12:00 BP 120/84 12/08/22 12:00 Pulse Ox 94 12/08/22 12:00 O2 Del Method 12/08/22 12:00 BMI result Body Mass Index 27.4 Const: Other: awake alert oriented x3 able to speak and short sentences HEENT: Other: membranes dry Resp: Other: diminished at bases with diffuse expiratory wheezes throughout all ro Cardio: Other: no S4; positive S1-S2; no S3 murmurs rubs or gallops GI: Other: soft nontender nondistended with normoactive bowel sounds. No acute peritoneal signs Neuro: Other: cranial nerves 2-12 grossly intact as tested. Motor 5/5 all extremities. Sensation intact. Cognition appropriate Extrem: Other: no edema bilaterally Objective Data Active Medications Acetaminophen (Acetaminophen 325 Mg Tablet) 650 mg PO Q6H PRN PRN Reason: Pain, Mild (Pain Scale 1-3) Last Admin: 12/08/22 08:17 Dose: 650 mg Documented By: SOPHIE Atorvastatin Calcium (Atorvastatin Calcium 10 Mg Tablet) 10 mg PO DAILY [facility] Last Admin: 12/08/22 08:11 Dose: 10 mg Documented By: SOPHIE Enoxaparin Sodium (Enoxaparin Sodium 40 Mg/0.4 Ml Syringe) 40 mg SUBCUT Q24H [facility] Last Admin: 12/07/22 19:28 Dose: 40 mg Documented By: PRESLEY Levothyroxine Sodium (Levothyroxine Sodium 25 Mcg Tablet) 25 mcg PO DAILY@0600 [facility] Magnesium Oxide (Magnesium Oxide 400 Mg Tablet) 400 mg PO DAILY [facility] Last Admin: 12/08/22 08:11 Dose: 400 mg Documented By: SOPHIE Omeprazole (Omeprazole 20 Mg Capsule.) 20 mg PO DAILY@0630 [facility] Potassium Chloride (Potassium Chloride Packet 20 Meq Packet) 40 meq PO BID [facility] Last Admin: 12/08/22 08:21 Dose: 40 meq Documented By: SOPHIE Sodium Chloride (0.9 % Sodium Chloride Flush 3 Ml Syringe) 3 ml IVFLUSH QSHIFT [facility] Last Admin: 12/08/22 08:11 Dose: 3 ml Documented By: SOPHIE Labs 12/07/22 14:41 12/07/22 16:01 Labs: Laboratory Results - last 24 hr 12/07/22 12/07/22 12/07/22 14:41 14:41 14:41 MCV 90.4 MCH 31.6 MCHC 34.9 RDW 13.1 Plt Count 217 MPV 10.3 Immature Gran % (Auto) 0.8 H Neut % (Auto) 57.6 Lymph % (Auto) 28.5 [place] % (Auto) 12.4 H Eos % (Auto) 0.4 Baso % (Auto) 0.3 Lymph # (Auto) 2.1 [place] # (Auto) 0.9 Eos # (Auto) 0.0 Baso # (Auto) 0.0 Abs Immat Gran (auto) 0.06 H Absolute Neuts (auto) 4.2 Absolute Nucleated RBC 0.000 Nucleated RBC % (auto) 0.0 PT 12.3 INR 1.1 Anion Gap Estim Creat Clear Calc Estimated GFR Random Glucose Calcium Magnesium Total Bilirubin Direct Bilirubin AST ALT Alkaline Phosphatase Troponin I High Sens 9.3 B-Natriuretic Peptide Total Protein Albumin Lipase Influenza Type A (PCR) Influenza Type B (PCR) RSV RNA Qual (PCR) SARS-CoV-2 RNA (RT-PCR) 12/07/22 12/07/22 12/07/22 14:41 14:41 16:01 MCV MCH MCHC RDW Plt Count MPV Immature Gran % (Auto) Neut % (Auto) Lymph % (Auto) [place] % (Auto) Eos % (Auto) Baso % (Auto) Lymph # (Auto) [place] # (Auto) Eos # (Auto) Baso # (Auto) Abs Immat Gran (auto) Absolute Neuts (auto) Absolute Nucleated RBC Nucleated RBC % (auto) PT INR Anion Gap 17 Estim Creat Clear Calc 61.0 Estimated GFR > 60 Random Glucose 95 Calcium 8.8 D Magnesium 1.7 Total Bilirubin 0.6 Direct Bilirubin 0.2 AST 24 ALT 28 Alkaline Phosphatase 58 Troponin I High Sens B-Natriuretic Peptide < 10 Total Protein 6.2 L Albumin 3.6 Lipase 14 Influenza Type A (PCR) NEGATIVE Influenza Type B (PCR) NEGATIVE RSV RNA Qual (PCR) NEGATIVE SARS-CoV-2 RNA (RT-PCR) NEGATIVE 12/07/22 18:00 MCV MCH MCHC RDW Plt Count MPV Immature Gran % (Auto) Neut % (Auto) Lymph % (Auto) [place] % (Auto) Eos % (Auto) Baso % (Auto) Lymph # (Auto) [place] # (Auto) Eos # (Auto) Baso # (Auto) Abs Immat Gran (auto) Absolute Neuts (auto) Absolute Nucleated RBC Nucleated RBC % (auto) PT INR Anion Gap Estim Creat Clear Calc Estimated GFR Random Glucose Calcium Magnesium Total Bilirubin Direct Bilirubin AST ALT Alkaline Phosphatase Troponin I High Sens 12.0 B-Natriuretic Peptide Total Protein Albumin Lipase Influenza Type A (PCR) Influenza Type B (PCR) RSV RNA Qual (PCR) SARS-CoV-2 RNA (RT-PCR) Assessment and Plan (1) Acute dyspnea: Status: Acute (2) Paroxysmal atrial fibrillation with RVR: Status: Acute (3) Hypertension: Status: Acute (4) Hyperlipidemia: Status: Acute Plan 82-year-old female with a past medical history of osteoarthritis, HLD, HTN, osteoporosis, polymyalgia rheumatica, presenting to the ED complaining of productive cough, increasing SOB, orthopnea, chest discomfort with cough,? nausea, vomiting, and diarrhea x1 week.?In the emergency room CTA of the chest failed to demonstrate any acute pathology including heart failure or PE.? She was given a DuoNeb and steroids per remains wheezy however without O2 requirement. spoke with over phone; he 2 is short of breath with conversation. She states his shortness of breath ... duration 2 days longer than hers 1.Acute SOB - no history of COPD/ reactive airway - given additional 60 of Solu-Medrol for a 120 loading dose - continue steroids at 60 IV q.6 hours starting in a.m. - DuoNebs q.4 hours p.r.n. - pulmonary consult in a.m. 2.Afib w/RVR - resolved with 1 dose of Lopressor IV - monitor on telemetry. If reoccurs.... cardiology consult 3. Hypertension - acceptable control on current therapies - adjust as indicated 4. Hyperlipidemia - continue statin 5. PMR - steroid dependent. . . Hold prednisone while on methylprednisolone full code Lovenox patient will require inpatient stay going forward to treat acute shortness of breath with IV steroids and complete workup. This cannot be achieved a lesser acute setting Time Spent With Patient Time: Total time managing care of this patient today ____ minutes. Quality Stroke Does the patient have a stroke diagnosis?: No VTE Prior VTE?: No VTE Risk Level:: Medical - moderate - high VTE Device Contraindication: Treatment Not Indicated VTE Drug Contraindication: N/A - Med Ordered
[2022-12-08 14:46] VITALS: BP 157/82; PULSE 77; RESP 20; TEMP 36.7; O2SAT 95
[2022-12-08 19:00] VITALS: PULSE 93; RESP 20; TEMP 36.3; O2SAT 94
[2022-12-08] MEDS: Enoxaparin Sodium 40 MG/0.4 ML SYRINGE SUBCUT (20:48)
[2022-12-08 23:28] VITALS: BP 131/67; PULSE 76; RESP 20; TEMP 36.4; O2SAT 93
[2022-12-09] VITALS (8 sets, daily range): BP systolic 117–142; BP diastolic 66–88; PULSE 80–100; RESP 17–22; TEMP 36.1–37; O2SAT 93–98
[2022-12-09] MEDS: Levothyroxine Sodium 25 MCG TABLET PO (04:18)
[2022-12-09] MEDS: Omeprazole 20 MG CAPSULE.DR PO (04:18)
[2022-12-09 06:28] LABS: Alanine Aminotransferase 25 U/L (0-31); Albumin Level 3.5 g/dL (3.5-5.0); Alkaline Phosphatase 46 U/L (39-117); Anion Gap 15 (12-20); Aspartate Amino Transferase 25 U/L (5-31); Bilirubin Total 0.6 mg/dL (0.0-1.0); Blood Urea Nitrogen 25 mg/dL (9-16); Calcium 9.1 mg/dL (8.4-10.2); Carbon Dioxide 21 mmol/L (22-29); Chloride 112 mmol/L (96-108); Creatinine Clr Calc Pharmacy 56.6; Estimated Glomerular Filt Rate > 60; Glucose Fasting 73 mg/dL (60-99); Potassium 4.8 mmol/L (3.3-5.1); Sodium 143 mmol/L (135-145); Total Protein 5.8 g/dL (6.5-8.0)
[2022-12-09 06:36] LABS: Basophils Percent Auto 0.3 % (0-2); Hematocrit 41.8 % (37.0-47.0); Hemoglobin 14.1 g/dl (12.0-16.0); Imm Gran Abs Auto 0.12 X10*3/uL (0.00-0.03); Imm Gran Pct Auto 0.9 % (0.0-0.4); Lymphocytes Absolute Auto 3.5 X10*3/uL (1.2-4.9); Lymphocytes Percent Auto 27.6 % (20-40); MANUAL DIFF FLAG SCAN; Mean Corpuscular HGB Conc 33.7 g/dl (31.0-35.0); Mean Corpuscular Hemoglobin 30.9 pg (27.0-33.0); Mean Corpuscular Volume 91.7 fL (80.0-98.0); Mean Platelet Volume 10.6 fL (9.4-12.3); Monocytes Absolute Auto 0.9 X10*3/uL (0.1-1.2); Monocytes Percent Auto 6.9 % (2-11); Neutrophils Absolute Auto 8.2 x10*3/uL (2.0-8.3); Neutrophils Percent Auto 64.3 % (45-73); Platelet Count 256 X10*3/uL (160-400); Red Blood Count 4.56 X10*6/uL (4.20-5.50); Red Cell Distribution Width 13.4 % (11.0-16.0); SCAN SMEAR FLAG 1; White Blood Count 12.7 X10*3/uL (4.8-10.8)
--- NOTE | 2022-12-09 07:00 | CA_ITS ---
Transthoracic Echocardiogram Patient (Last, First, Middle): Vero Ramírez, Gender: Female Date of : 1940 Age: 82 Procedure Date: 12/09/2022 Procedure Type: Transthoracic Echocardiogram Location: [facility] [place] Height: 167.64 cm Weight: 77.11 kg BSA: 1.87 m2 Heart Rate: 95 bpm BP: 140 / 75 mmHg Health Information Technologist: SB Referring MD: Evangelist Silva MD Prison Teacher: Jax Clarke MD Symptoms: dyspnea + AF Study Quality: Adequate w contrast ECG Rhythm: Sinus Conclusions: - 1. Normal LV systolic function with impaired relaxation filling pattern 2. Moderately reduced RV systolic function by TAPSE 3. Normal cardiac valvular Doppler 4. No gross pericardial effusion Findings Procedure Information Contrast agent, definity, is being given per protocol without apparent complications. Left Ventricle Normal left ventricular size, thickness, and systolic function. The visually estimated ejection fraction is between 65-70%. Spectral Doppler is indicative of an impaired relaxation filling pattern. E/E prime ratio is between 8 and 15 consistent with indeterminate filling pressures. Right Ventricle Normal right ventricular cavity size. There is moderately decreased right ventricular systolic function. Atria The left atrium is normal in size. There is lipomatous hypertrophy of the interatrial septum. There is no evidence of interatrial shunt. The right atrium was not well visualized. Aortic Valve There is mild calcification of the aortic valve. There is no aortic valve stenosis. There is no aortic valve regurgitation. Mitral Valve There is mild anterior and posterior mitral leaflet thickening. There is mild mitral annular calcification. There is trace mitral valve regurgitation. There is no mitral valve stenosis. Pulmonic Valve The pulmonic valve was not well visualized. Tricuspid Valve Likely normal tricuspid valve structure and function. Tricuspid regurgitation envelope is inadequate for calculation of right ventricular systolic pressure. Normal right atrial pressure. Great Vessels The aorta was not well visualized. The pulmonary artery was not well visualized. Venous The inferior vena cava is normal in size and collapses greater than 50% with inspiration. Pericardium/Pleural There is no evidence of pericardial effusion. Prior Study Comparison No significant change compared to prior study dated: 04/22/2022. Measurements 2D Linear Measurements IVSd: 0.86 0.6-0.9/0.6-1.0 cm LVIDd: 3.18 3.9-5.3/4.2-5.9 cm LVIDd Index: 1.70 2.4-3.2/2.2-3.1 cm/m2 LVIDs: 2.58 2.0-3.6 cm LVPWd: 0.78 0.7-1.1 cm LA Diam: 3.30 2.7-3.8/3.0-4.0 cm LAIDs Index: 1.76 1.5-2.3 cm/m2 LV Mass: 82.80 67-162/88-224 g LV Mass Index: 44.28 43-95/49-115 g/m2 LVOT Diam: 1.90 3.0+(-)1.3 cm 2D Systolic Function EF 4C: 71.70 >55% EF 2C: 64.80 >55% EF BiP: 67.10 >55% Mitral Valve MV Pk E: 0.60 MV PK A: 1.02 MV Decel Time: 282.00 E/A: 0.60 E'Lateral: 5.68 E'Medial: 3.89 E/E' Med: 15.40 E/E' Lat: 10.60 PHT: 83.00 MVA PHT: 2.65 Decel [place]: 2.13 Aortic Valve AoV Pk Shmuel: 1.20 AoV Pk Grad: 6.00 JANEL: 2.29 LVOT LVOT Pk Shmuel: 0.96 LVOT Mn Shmuel: 0.64 LVOT VTI: 0.19 LVOT Pk Grad: 4.00 LVOT Mn Grad: 2.00 LVOT Diam: 1.90 LVOT Area: 2.84 Diastolic Function MV Pk E: 0.60 MV Pk A: 1.02 E/A: 0.60 E'Medial: 3.89 E/E' Med: 15.40 E' Laterial: 5.68 E/E' Lat: 10.60 Right Ventricle TAPSE (mm): 12.60 TVS' Shmuel: 11.30 Tricuspid Valve RA Press: 3.00 Great Vessels Aorta Sinus of Valsalva: 3.10 2.0-3.5 cm Ao Asc: 3.50 2.1-3.4 cm Pulmonary Valve PV Pk Shmuel: 0.86 Peak PV Grad: 3.00 Updated in Other Vendor System with Status of Final Jax Clarke MD electronically signed on 12/09/2022 4:04:02 PM with status of Final
[2022-12-09 07:36] LABS: SLIDE REVIEW VERIFIED
[2022-12-09] MEDS: 0.9 % Sodium Chloride Flush 3 ML SYRINGE IVFLUSH ×3 (08:38→21:15)
[2022-12-09] MEDS: Potassium Chloride Packet 20 MEQ PACKET 40 MEQ PO ×2 (08:38→21:13)
[2022-12-09] MEDS: Loratadine 10 MG TABLET PO (08:39)
[2022-12-09] MEDS: predniSONE 5 MG TABLET 2.5 MG PO (08:39)
[2022-12-09] MEDS: Magnesium Oxide 400 MG TABLET PO (08:39)
[2022-12-09] MEDS: Cholecalciferol (Vitamin D3) 25 MCG TABLET PO (08:39)
[2022-12-09] MEDS: hydroCHLOROthiazide 25 MG TABLET PO (08:40)
[2022-12-09] MEDS: Atorvastatin Calcium 10 MG TABLET PO (08:40)
--- NOTE | 2022-12-09 09:50 | PM.CNPUL ---
History of Present Illness History of Present Illness Consult date: 12/09/22 Reason for consult: dyspnea and cough Chief complaint: Acute shortness of breath Narrative: I have seen this 82 years old very pleasant female for pulmonary consultation. She is admitted with acute episode of cough and shortness of breath for a few days, she did have cold feeling but no fever or chills. She does not recall having had any contact with sick persons. This patient has remote history of smoking but she quit 40 years ago. She has had no ongoing chronic respiratory issue. She does have history of polymyalgia rheumatica which has been treated with a small dose of prednisone 2.5 mg b.i.d. for many years. If she did have mild degree of COPD that may have been capped under controlled with this small does. She has been treated for osteoarthritis of hands and other joints, hyperlipidemia, hypertension, polymyalgia rheumatica. Review of Systems Review of Systems: Yes all other systems are reviewed and are negative Eyes: Eyes: Reports no additional eye complaints ENT: Reports system reviewed and no additional complaints, except as documented Cardiovascular: Cardiovascular: Denies chest pain and Reports irregular heart rhythm (History of paroxysmal atrial fibrillation) Respiratory: Respiratory: Reports as per HPI Gastrointestinal: Gastrointestinal: Reports no additional gastrointestinal complaints Genitourinary: Genitourinary: Reports no additional female genitourinary complaints Musculoskeletal: Musculoskeletal: Reports arthralgias and Reports muscle weakness Integumentary/Breasts: Skin/Breast: Reports system reviewed and no additional complaints, except as docu Neurologic: Reports system reviewed and no additional complaints, except as documented Psychiatric: Psychiatric: Reports no additional psychiatric complaints Endocrine: Endocrine: Reports no additional endocrine complaints PMFSH Past Medical History Medical History Bronchitis Surgical History Surgical History Hx of cholecystectomy Hx of hysterectomy Social History Social History Household Members: Spouse Housing: House Do you presently have visiting nurse or other home services: No Alcohol intake: current Alcohol intake frequency: holidays/special occasions only Patient Tobacco Use Status: Former Tobacco user Tobacco use type: Cigarette Cigarettes Per Day: 15 Years Smoked: 4 Substance Use Type: Marijuana service: No Current occupational status: retired Meds Allergies Allergy/AdvReac Type Severity Reaction Status Date / Time naproxen [NAPROXEN] Allergy Intermediate BLISTERS Verified 12/07/22 13:58 IN MOUTH Sulfa (Sulfonamide Allergy Intermediate BLISTERS Verified 12/07/22 13:58 Antibiotics) ON TONGUE [SULFA (SULFONAMIDE ANTIBIOTICS)] Active Medications: Current Medications Acetaminophen (Acetaminophen 325 Mg Tablet) 650 mg PO Q6H PRN PRN Reason: Pain, Mild (Pain Scale 1-3) Last Admin: 12/08/22 08:17 Dose: 650 mg Albuterol Sulfate (Albuterol Sulfate 90 Mcg 8 Gm Inhaler) 2 puff INHALE Q4H PRN PRN Reason: Shortness Of Breath Or Wheezing Atorvastatin Calcium (Atorvastatin Calcium 10 Mg Tablet) 10 mg PO DAILY [facility] Last Admin: 12/09/22 08:40 Dose: 10 mg Enoxaparin Sodium (Enoxaparin Sodium 40 Mg/0.4 Ml Syringe) 40 mg SUBCUT Q24H [facility] Last Admin: 12/08/22 20:48 Dose: 40 mg Fluticasone Propionate (Fluticasone Propionate Nasal 16 Gm [place]) 1 spray NOSTRIL-B DAILY [facility] Hydrochlorothiazide (Hydrochlorothiazide 25 Mg Tablet) 25 mg PO DAILY [facility]; Protocol Last Admin: 12/09/22 08:40 Dose: 25 mg Levothyroxine Sodium (Levothyroxine Sodium 25 Mcg Tablet) 25 mcg PO DAILY@0600 [facility] Last Admin: 12/09/22 04:18 Dose: 25 mcg Loratadine (Loratadine 10 Mg Tablet) 10 mg PO DAILY [facility] Last Admin: 12/09/22 08:39 Dose: 10 mg Magnesium Oxide (Magnesium Oxide 400 Mg Tablet) 400 mg PO DAILY [facility] Last Admin: 12/09/22 08:39 Dose: 400 mg Non-Formulary Medication (Alendronate) 70 mg PO TH@0900 [facility] Omeprazole (Omeprazole 20 Mg Capsule.Dr) 20 mg PO DAILY@0630 [facility] Last Admin: 12/09/22 04:18 Dose: 20 mg Potassium Chloride (Potassium Chloride Packet 20 Meq Packet) 40 meq PO BID [facility] Last Admin: 12/09/22 08:38 Dose: 40 meq Prednisone (Prednisone 5 Mg Tablet) 2.5 mg PO BID [facility] Last Admin: 12/09/22 08:39 Dose: 2.5 mg Sodium Chloride (0.9 % Sodium Chloride Flush 3 Ml Syringe) 3 ml IVFLUSH QSHIFT [facility] Last Admin: 12/09/22 08:38 Dose: 3 ml Vitamin D (Cholecalciferol (Vitamin D3) 25 Mcg Tablet) 25 mcg PO DAILY [facility] Last Admin: 12/09/22 08:39 Dose: 25 mcg Home Medications Medication Instructions Recorded Confirmed Last Taken Type alendronate 70 mg tablet 70 mg PO TH@0900 04/13/21 12/07/22 12/05/22 History fexofenadine 180 mg tablet 180 mg PO DAILY 04/13/21 12/07/22 12/07/22 09:00 History fluticasone propionate 50 1 spray intranasal DAILY 04/13/21 12/07/22 12/07/22 09:00 History mcg/actuation nasal spray,suspension (Allergy Relief (fluticasone)) omeprazole 20 mg capsule,delayed 20 mg PO DAILY@0630 04/13/21 12/07/22 12/07/22 08:30 History release simvastatin 20 mg tablet 20 mg PO DAILY 04/13/21 12/07/22 12/07/22 09:00 History albuterol sulfate 90 mcg/actuation 2 puff inhalation Q6H PRN 04/09/22 12/07/22 Unknown History aerosol inhaler (ProAir HFA) Shortness Of Breath Or Wheezing hydrochlorothiazide 25 mg tablet 25 mg PO DAILY 04/09/22 12/07/22 12/07/22 09:00 History levothyroxine 25 mcg capsule 25 mcg PO DAILY@0600 04/09/22 12/07/22 12/07/22 07:00 History folic acid 1 mg tablet 1 mg PO DAILY 11/28/22 12/07/22 12/07/22 09:00 History acetaminophen 650 mg 1 tab PO Q8H PRN pain 12/07/22 12/07/22 Unknown History tablet,extended release (Mapap Arthritis Pain) cholecalciferol (vitamin D3) 25 25 mcg PO DAILY 12/07/22 12/07/22 12/07/22 09:00 History mcg (1,000 unit) tablet (Vitamin D3) ibuprofen 800 mg tablet 1 tab PO TID PRN pain 12/07/22 12/07/22 Unknown History magnesium oxide 400 mg (241.3 mg 400 mg PO DAILY 12/07/22 12/07/22 12/07/22 09:00 History magnesium) tablet prednisone 5 mg tablet 2.5 mg PO BID 12/07/22 12/07/22 12/07/22 09:00 History Physical Exam Vital Signs: Vital Signs: Last Vital Signs Temp 97.5 F 12/09/22 07:31 Pulse 84 12/09/22 07:31 Resp 22 H 12/09/22 07:31 BP 140/75 H 12/09/22 07:31 Pulse Ox 96 12/09/22 07:31 O2 Del Method 12/09/22 07:31 O2 Flow Rate 2 12/09/22 03:59 BMI result Body Mass Index 27.4 Const: General: healthy appearing, comfortable, no acute distress (But has mild cough and shortness of breath during conversation), alert and awake Orientation/consciousness: patient oriented x3 HEENT: Head: Yes normal to inspection General nose exam: No nasal polyps present and No nasal discharge present Face and sinus: Yes sinuses nontender Mouth: oropharynx normal Throat: Yes posterior oropharynx normal Eyes: General: appearance normal, both eyes and all related structures Neck: Neck: Yes normal visual inspection, Yes no lymphadenopathy, Yes trachea midline and Yes no JVD Thyroid: Thyroid normal Chest: Chest palpation & inspection: normal inspection of the chest, normal palpation of entire chest wall and no tenderness Resp: Other: Percussion note is resonant. Breath sounds are slightly distant with prolonged expiratory phase on both sides. There are a few inspiratory wheezes especially anteriorly. Cardio: Palpation: normal PMI Rate: regular rate Rhythm: regular rhythm Heart sounds: no gallops and no murmurs Peripheral pulses: Peripheral pulses 2+ throughout GI: Palpation (GI): Soft to palpation, nontender, No hepatosplenomegaly present and no masses Auscultation: normal bowel sounds Back/Spine/Pelvis: Thoracic/Lumbar Spine: thoracic and lumbar spine normal to inspection Skin: General skin exam: no rashes or lesions noted Neuro: General: patient oriented x3 and no focal motor deficits Cranial nerves: Yes CN's II-XII intact bilaterally Extrem: General: Yes normal to inspection, No no joint enlargement (Osteoarthritis of the knees and hand joints), Yes no clubbing, cyanosis or edema and Yes no calf tenderness Psych: Appearance: grossly normal and well kempt Speech and movement: Normal speech and movement present Results Laboratory Findings 12/09/22 05:30 12/09/22 05:30 ABG, PT/INR, D-dimer: PT/INR, D-dimer PT 12.3 SEC (10.0-13.1) 12/07/22 14:41 INR 1.1 (0.9-1.1) 12/07/22 14:41 Abnormal lab findings: Abnormal Labs 12/07/22 12/07/22 12/09/22 14:41 16:01 05:30 WBC 12.7 H Immature Gran % (Auto) 0.8 H 0.9 H [place] % (Auto) 12.4 H Abs Immat Gran (auto) 0.06 H 0.12 H Potassium 2.9 L Chloride Carbon Dioxide BUN 18 H Total Protein 6.2 L 12/09/22 05:30 WBC Immature Gran % (Auto) [place] % (Auto) Abs Immat Gran (auto) Potassium Chloride 112 H Carbon Dioxide 21 L BUN 25 H Total Protein 5.8 L Diagnostic Findings Chest x-ray: report reviewed and image reviewed CT scan - chest: report reviewed and image reviewed Assessment and Plan (1) Bronchitis: Status: Acute Acute viral bronchitis, Patient may have a mild degree of underlying chronic obstructive pulmonary disease. Recc . DuoNeb updraft Q 6 hours while awake. Solu-Medrol 40 mg IV Q 8 hours for 1 or 2 days then prednisone taper. Patient would need to have COMPLETE PULMONARY FUNCTION TEST after she recovers from this acute episode. Time Spent With Patient Time: Total time managing care of this patient today ____ minutes. Procedures Date of Service Date of Service: 12/09/22
--- NOTE | 2022-12-09 11:10 | P.CONCA_ITS ---
History of Present Illness History of Present Illness Date of Service: 12/09/22 Requesting physician: Geovanny Hollis Consult reason: atrial fibrillation Chief complaint: Acute shortness of breath Narrative: I was consulted to see Vero in cardiology consultation today for atrial fibrillation. I reviewed her anti monitoring strips and a. Diet she had atrial fibrillation yesterday morning around 07:20. She was given Lopressor with conve rsion to sinus rhythm. She came to the hospital because progressive shortness of breath and acute shortness of breath the led to the hospitalization. She is very distressed about the symptoms. She says she usually uses inhalers at home. She denies any clear orthopnea, PND. Does have cough productive of yellowish phlegm. She has not had any history of cardiac issues including history of atrial fibrillation in the past. Denies any myocardial infarction congestive heart failure. She does not have any history of diabetes or stroke. She does carry history of hypertension. She has no symptoms of palpitation irregular heartbeat. Review of Systems Constitutional: Constitutional: Reports no additional constitutional complaints Eyes: Eyes: Reports no additional eye complaints Cardiovascular: Cardiovascular: Denies chest pain, Denies leg edema, Denies lightheadedness, Denies Loss of Consciousness, Denies palpitations and Reports dyspnea on exertion Respiratory: Respiratory: Reports change in phlegm color, Reports cough and Reports dyspnea on exertion Gastrointestinal: Gastrointestinal: Reports no additional gastrointestinal complaints Musculoskeletal: Musculoskeletal: Reports no additional musculoskeletal co mplaints Integumentary/Breasts: Skin/Breast: Reports system reviewed and no additional complaints, except as docu Neurologic: Reports system reviewed and no additional complaints, except as documented Psychiatric: Psychiatric: Reports no additional psychiatric complaints Endocrine: Endocrine: Denies palpitations PMFSH Past Medical History Medical History Bronchitis Surgical History Surgical History Hx of cholecystectomy Hx of hysterectomy Social History Social History Household Members: Spouse Housing: House Do you presently have visiting nurse or other home services: No Alcohol intake: current Alcohol intake frequency: holidays/special occasions only Patient Tobacco Use Status: Former Tobacco user Tobacco use type: Cigarette Cigarettes Per Day: 15 Years Smoked: 4 Substance Use Type: Marijuana service: No Current occupational status: retired Meds Allergies Allergy/AdvReac Type Severity Reaction Status Date / Time naproxen [NAPROXEN] Allergy Intermediate BLISTERS Verified 12/07/22 13:58 IN MOUTH Sulfa (Sulfonamide Allergy Intermediate BLISTERS Verified 12/07/22 13:58 Antibiotics) ON TONGUE [SULFA (SULFONAMIDE ANTIBIOTICS)] Active Medications: Current Medications Acetaminophen (Acetaminophen 325 Mg Tablet) 650 mg PO Q6H PRN PRN Reason: Pain, Mild (Pain Scale 1-3) Last Admin: 12/08/22 08:17 Dose: 650 mg Albuterol Sulfate (Albuterol Sulfate 90 Mcg 8 Gm Inhaler) 2 puff INHALE Q4H PRN PRN Reason: Shortness Of Breath Or Wheezing Atorvastatin Calcium (Atorvastatin Calcium 10 Mg Tablet) 10 mg PO DAILY [facility] Last Admin: 12/09/22 08:40 Dose: 10 mg Albuterol Sulfate 2.5 mg/ (Ipratropium [place] 0.5 mg) 0 mg INHALE RQ4H WHILE AWAKE [facility] Enoxaparin Sodium (Enoxaparin Sodium 40 Mg/0.4 Ml Syringe) 40 mg SUBCUT Q24H [facility] Last Admin: 12/08/22 20:48 Dose: 40 mg Fluticasone Propionate (Fluticasone Propionate Nasal 16 Gm [place]) 1 spray NOSTRIL-B DAILY [facility] Hydrochlorothiazide (Hydrochlorothiazide 25 Mg Tablet) 25 mg PO DAILY [facility]; Protocol Last Admin: 12/09/22 08:40 Dose: 25 mg Levothyroxine Sodium (Levothyroxine Sodium 25 Mcg Tablet) 25 mcg PO DAILY@0600 [facility] Last Admin: 12/09/22 04:18 Dose: 25 mcg Loratadine (Loratadine 10 Mg Tablet) 10 mg PO DAILY [facility] Last Admin: 12/09/22 08:39 Dose: 10 mg Magnesium Oxide (Magnesium Oxide 400 Mg Tablet) 400 mg PO DAILY [facility] Last Admin: 12/09/22 08:39 Dose: 400 mg Methylprednisolone Sodium Succinate (Methylprednisolone Sod Succ 40 Mg/Ml Vial) 40 mg IVPUSH Q8H [facility] Metoprolol Tartrate (Metoprolol Tartrate 12.5 Mg Halftab) 12.5 mg PO BID [facility]; Protocol Omeprazole (Omeprazole 20 Mg Capsule.Dr) 20 mg PO DAILY@0630 [facility] Last Admin: 12/09/22 04:18 Dose: 20 mg Potassium Chloride (Potassium Chloride Packet 20 Meq Packet) 40 meq PO BID [facility] Last Admin: 12/09/22 08:38 Dose: 40 meq Sodium Chloride (0.9 % Sodium Chloride Flush 3 Ml Syringe) 3 ml IVFLUSH QSHIFT [facility] Last Admin: 12/09/22 08:38 Dose: 3 ml Vitamin D (Cholecalciferol (Vitamin D3) 25 Mcg Tablet) 25 mcg PO DAILY [facility] Last Admin: 12/09/22 08:39 Dose: 25 mcg Home Medications Medication Instructions Recorded Confirmed Last Taken Type alendronate 70 mg tablet 70 mg PO TH@0904/13/21 12/07/22 12/05/22 History fexofenadine 180 mg tablet 180 mg PO DAILY 04/13/21 12/07/22 12/07/22 09:00 History fluticasone propionate 50 1 spray intranasal DAILY 04/13/21 12/07/22 12/07/22 09:00 History mcg/actuation nasal spray,suspension (Allergy Relief (fluticasone)) omeprazole 20 mg capsule,delayed 20 mg PO DAILY@0604/13/21 12/07/22 12/07/22 08:30 History release simvastatin 20 mg tablet 20 mg PO DAILY 04/13/21 12/07/22 12/07/22 09:00 History albuterol sulfate 90 mcg/actuation 2 puff inhalation Q6H PRN 04/09/22 12/07/22 Unknown History aerosol inhaler (ProAir HFA) Shortness Of Breath Or Wheezing hydrochlorothiazide 25 mg tablet 25 mg PO DAILY 04/09/22 12/07/22 12/07/22 09:00 History levothyroxine 25 mcg capsule 25 mcg PO DAILY@59904/09/22 12/07/22 12/07/22 07:00 History folic acid 1 mg tablet 1 mg PO DAILY 11/28/22 12/07/22 12/07/22 09:00 History acetaminophen 650 mg 1 tab PO Q8H PRN pain 12/07/22 12/07/22 Unknown History tablet,extended release (Mapap Arthritis Pain) cholecalciferol (vitamin D3) 25 25 mcg PO DAILY 12/07/22 12/07/22 12/07/22 09:00 History mcg (1,000 unit) tablet (Vitamin D3) ibuprofen 800 mg tablet 1 tab PO TID PRN pain 12/07/22 12/07/22 Unknown History magnesium oxide 400 mg (241.3 mg 400 mg PO DAILY 12/07/22 12/07/22 12/07/22 09:00 History magnesium) tablet prednisone 5 mg tablet 2.5 mg PO BID 12/07/22 12/07/22 12/07/22 09:00 History Physical Exam Vital Signs: Vital Signs: Last Vital Signs Temp 97.8 F 12/09/22 10:58 Pulse 85 12/09/22 10:58 Resp 20 12/09/22 10:58 BP 138/76 12/09/22 10:58 Pulse Ox 95 12/09/22 10:58 O2 Del Method 12/09/22 10:58 O2 Flow Rate 2 12/09/22 03:59 BMI result Body Mass Index 27.4 Const: General: cooperative, comfortable, no acute distress, alert, awake and anxious Nutritional Appearance: overweight Orientation/consciousness: patient oriented x3 Limitations: no limitations HEENT: Head: Yes normocephalic and Yes atraumatic Neck: Neck: Yes trachea midline, Yes supple and Yes no JVD Resp: Effort & Inspection: normal respiratory effort Auscultation: wheezes scattered wheezes GI: Auscultation: normal bowel sounds Neuro: General: patient oriented x3 and no focal motor deficits Extrem: General: Yes no clubbing, cyanosis or edema Objective Labs and Meds 12/09/22 05:30 12/09/22 05:30 Lab results: Laboratory Results - last 24 hr 12/09/22 12/09/22 05:30 05:30 WBC 12.7 H RBC 4.56 Hgb 14.1 Hct 41.8 MCV 91.7 MCH 30.9 MCHC 33.7 RDW 13.4 Plt Count 256 MPV 10.6 Immature Gran % (Auto) 0.9 H Neut % (Auto) 64.3 Lymph % (Auto) 27.6 [place] % (Auto) 6.9 Eos % (Auto) 0.0 Baso % (Auto) 0.3 Lymph # (Auto) 3.5 [place] # (Auto) 0.9 Eos # (Auto) 0.0 Baso # (Auto) 0.0 Abs Immat Gran (auto) 0.12 H Absolute Neuts (auto) 8.2 Absolute Nucleated RBC 0.000 Nucleated RBC % (auto) 0.0 Smear Tech's Comments VERIFIED Sodium 143 Potassium 4.8 D Chloride 112 H Carbon Dioxide 21 L Anion Gap 15 BUN 25 H Creatinine 0.83 Estim Creat Clear Calc 56.6 Estimated GFR > 60 Fasting Glucose 73 Calcium 9.1 Total Bilirubin 0.6 AST 25 ALT 25 Alkaline Phosphatase 46 Total Protein 5.8 L Albumin 3.5 Imaging Radiologist's impression: Impressions Chest X-Ray 12/09/22 08:53 IMPRESSION: Lungs clear. No acute intrathoracic disease. Assessment and Plan (1) Paroxysmal atrial fibrillation with RVR: Status: Acute Patient with 1 episode of atrial fibrillation most likely triggered by acute respiratory illness. She continues to be short of breath and pretty distressed by it. Does not appear to have any cardiac reason for shortness of breath. Most likely related to bronchospastic airway disease. Continue manage the same. Consider switching to Xopenex to reduce cardiac stimulation. Given this is only episode of atrial fibrillation, most likely triggered by her acute illness probably would not consider long-term oral anticoagulation unless she has significant left atrial enlargement on echocardiogram. Request and echocardiogram. Can start on metoprolol therapy if there are no obvious pulmonary contraindication. Will sign of the case at this point time. Thank you for allowing me to partake in her care Time Spent With Patient Time: Total time managing care of this patient today ____ minutes. Procedures Date of Service Date of Service: 12/09/22
[2022-12-09] MEDS: Metoprolol Tartrate 12.5 MG HALFTAB PO ×2 (11:22→21:12)
[2022-12-09] MEDS: Fluticasone Propionate Nasal 16 GM SPRAY 1 SPRAY NOSTRIL-B (11:22)
[2022-12-09] MEDS: methylPREDNISolone Sod Succ 40 MG/ML VIAL IVPUSH ×2 (11:22→17:57)
[2022-12-09] MEDS: Albuterol Sulfate 90 MCG 8 GM INHALER 2 PUFF INHALE (11:23)
--- NOTE | 2022-12-09 14:10 | MHC.CM.PN ---
per rounds today pt not ready for dc ,dc plan remains home with no servceis
--- NOTE | 2022-12-09 15:42 | P.PNIM_ITS ---
Subjective Subjective Date of Service: 12/09/22 Interval History: C/o cough + dyspnea No fever Quit smoking over 40 yr ago Review of Systems Review of Systems: Yes all other systems are reviewed and are negative Physical Exam Vital Signs: Vital Signs: Last Vital Signs Temp 97.8 F 12/09/22 10:58 Pulse 80 12/09/22 11:21 Resp 18 12/09/22 11:21 BP 138/76 12/09/22 10:58 Pulse Ox 95 12/09/22 10:58 O2 Del Method 12/09/22 10:58 O2 Flow Rate 2 12/09/22 03:59 BMI result Body Mass Index 27.4 Gen: in no acute distress HEENT: sclera anicteric, moist mucus membranes Neck: supple Lungs: scattered wheezes Heart: regular rate and rhythm, no murmurs Abd: soft, non-tender, non-distended Ext: no edema Skin: warm/well-perfused Neuro: alert and oriented x3, no focal findings Psych: appropriate affect Objective Data Active Medications Acetaminophen (Acetaminophen 325 Mg Tablet) 650 mg PO Q6H PRN PRN Reason: Pain, Mild (Pain Scale 1-3) Last Admin: 12/08/22 08:17 Dose: 650 mg Documented By: SOPHIE Albuterol Sulfate (Albuterol Sulfate 90 Mcg 8 Gm Inhaler) 2 puff INHALE Q4H PRN PRN Reason: Shortness Of Breath Or Wheezing Last Admin: 12/09/22 11:23 Dose: 2 puff Documented By: NORMA Atorvastatin Calcium (Atorvastatin Calcium 10 Mg Tablet) 10 mg PO DAILY [facility] Last Admin: 12/09/22 08:40 Dose: 10 mg Documented By: NORMA Albuterol Sulfate 2.5 mg/ (Ipratropium [place] 0.5 mg) 0 mg INHALE RQ4H WHILE AWAKE [facility] Last Admin: 12/09/22 11:19 Dose: 2.5 each Documented By: MELINDA Enoxaparin Sodium (Enoxaparin Sodium 40 Mg/0.4 Ml Syringe) 40 mg SUBCUT Q24H [facility] Last Admin: 12/08/22 20:48 Dose: 40 mg Documented By: JOAN Fluticasone Propionate (Fluticasone Propionate Nasal 16 Gm [place]) 1 spray NOSTRIL-B DAILY [facility] Last Admin: 12/09/22 11:22 Dose: 1 spray Documented By: NORMA Hydrochlorothiazide (Hydrochlorothiazide 25 Mg Tablet) 25 mg PO DAILY [facility]; Protocol Last Admin: 12/09/22 08:40 Dose: 25 mg Documented By: NORMA Levothyroxine Sodium (Levothyroxine Sodium 25 Mcg Tablet) 25 mcg PO DAILY@0600 [facility] Last Admin: 12/09/22 04:18 Dose: 25 mcg Documented By: JOAN Loratadine (Loratadine 10 Mg Tablet) 10 mg PO DAILY [facility] Last Admin: 12/09/22 08:39 Dose: 10 mg Documented By: NORMA Magnesium Oxide (Magnesium Oxide 400 Mg Tablet) 400 mg PO DAILY [facility] Last Admin: 12/09/22 08:39 Dose: 400 mg Documented By: NORMA Methylprednisolone Sodium Succinate (Methylprednisolone Sod Succ 40 Mg/Ml Vial) 40 mg IVPUSH Q8H [facility] Last Admin: 12/09/22 11:22 Dose: 40 mg Documented By: NORMA Metoprolol Tartrate (Metoprolol Tartrate 12.5 Mg Halftab) 12.5 mg PO BID [facility]; Protocol Last Admin: 12/09/22 11:22 Dose: 12.5 mg Documented By: NORMA Omeprazole (Omeprazole 20 Mg Capsule.) 20 mg PO DAILY@0630 [facility] Last Admin: 12/09/22 04:18 Dose: 20 mg Documented By: JOAN Potassium Chloride (Potassium Chloride Packet 20 Meq Packet) 40 meq PO BID [facility] Last Admin: 12/09/22 08:38 Dose: 40 meq Documented By: NORMA Sodium Chloride (0.9 % Sodium Chloride Flush 3 Ml Syringe) 3 ml IVFLUSH QSHIFT [facility] Last Admin: 12/09/22 08:38 Dose: 3 ml Documented By: NORMA Vitamin D (Cholecalciferol (Vitamin D3) 25 Mcg Tablet) 25 mcg PO DAILY [facility] Last Admin: 12/09/22 08:39 Dose: 25 mcg Documented By: NORMA Labs 12/09/22 05:30 12/09/22 05:30 Labs: Laboratory Results - last 24 hr 12/09/22 12/09/22 05:30 05:30 MCV 91.7 MCH 30.9 MCHC 33.7 RDW 13.4 Plt Count 256 MPV 10.6 Immature Gran % (Auto) 0.9 H Neut % (Auto) 64.3 Lymph % (Auto) 27.6 [place] % (Auto) 6.9 Eos % (Auto) 0.0 Baso % (Auto) 0.3 Lymph # (Auto) 3.5 [place] # (Auto) 0.9 Eos # (Auto) 0.0 Baso # (Auto) 0.0 Abs Immat Gran (auto) 0.12 H Absolute Neuts (auto) 8.2 Absolute Nucleated RBC 0.000 Nucleated RBC % (auto) 0.0 Smear Tech's Comments VERIFIED Anion Gap 15 Estim Creat Clear Calc 56.6 Estimated GFR > 60 Fasting Glucose 73 Calcium 9.1 Total Bilirubin 0.6 AST 25 ALT 25 Alkaline Phosphatase 46 Total Protein 5.8 L Albumin 3.5 Assessment and Plan (1) Acute dyspnea: Status: Acute (2) Paroxysmal atrial fibrillation with RVR: Status: Acute (3) Hypertension: Status: Acute (4) Hyperlipidemia: Status: Acute Plan hospital d#3 82yo female with a past medical history of osteoarthritis, HLD, HTN, osteoporosis, and steroid-dependent polymyalgia rheumatica, presenting to the ED complaining of productive cough, increasing SOB, orthopnea, chest discomfort with cough,?nausea, vomiting, and diarrhea x1 week.? Possible bronchitis with underlying COPD # acute bronhcitis with possible underlying COPD - Pulmonology consultation appreciated, steroids IV then taper to home dose of 2.5 mg prednisone bid, outpatient PFTs, neb treatments # paroxysmal AF - resolved p 1 dose metoprolol and has not recurred. likely due to lung pathology. TTE. Per Cardiology, no AC unless significant LAE on TTE. Metoprolol for rate control. # HTN - continue HCTZ, metoprolol added # HLD - continue statin # PMR - on steroids as above # hypothyroidism - continue LT4 # VTE ppx: LMWH # dispo: TBD In my clinical judgment, the patient requires continued inpatient hospitalization for the following reasons: dyspnea Time Spent With Patient Time: Total time managing care of this patient today _35___ minutes. Quality Stroke Does the patient have a stroke diagnosis?: No VTE Prior VTE?: No VTE Risk Level:: Medical - moderate - high VTE Device Contraindication: Treatment Not Indicated VTE Drug Contraindication: N/A - Med Ordered
[2022-12-09] MEDS: Enoxaparin Sodium 40 MG/0.4 ML SYRINGE SUBCUT (21:14)
[2022-12-10] VITALS (8 sets, daily range): BP systolic 124–165; BP diastolic 64–99; PULSE 65–111; RESP 15–20; TEMP 36–36.6; O2SAT 93–96
[2022-12-10] MEDS: Levothyroxine Sodium 25 MCG TABLET PO (04:31)
[2022-12-10] MEDS: methylPREDNISolone Sod Succ 40 MG/ML VIAL IVPUSH ×2 (04:31→11:17)
[2022-12-10] MEDS: Omeprazole 20 MG CAPSULE.DR PO (04:39)
[2022-12-10 07:33] LABS: Alanine Aminotransferase 25 U/L (0-31); Albumin Level 3.6 g/dL (3.5-5.0); Alkaline Phosphatase 53 U/L (39-117); Anion Gap 15 (12-20); Aspartate Amino Transferase 20 U/L (5-31); Bilirubin Total 0.5 mg/dL (0.0-1.0); Blood Urea Nitrogen 20 mg/dL (9-16); Calcium 9.7 mg/dL (8.4-10.2); Carbon Dioxide 22 mmol/L (22-29); Chloride 108 mmol/L (96-108); Creatinine Clr Calc Pharmacy 58.7; Estimated Glomerular Filt Rate > 60; Glucose Fasting 105 mg/dL (60-99); Potassium 5.1 mmol/L (3.3-5.1); Sodium 140 mmol/L (135-145); Total Protein 6.2 g/dL (6.5-8.0)
[2022-12-10] MEDS: Cholecalciferol (Vitamin D3) 25 MCG TABLET PO (08:23)
[2022-12-10] MEDS: Loratadine 10 MG TABLET PO (08:23)
[2022-12-10] MEDS: Atorvastatin Calcium 10 MG TABLET PO (08:23)
[2022-12-10] MEDS: Potassium Chloride Packet 20 MEQ PACKET 40 MEQ PO ×2 (08:23→20:29)
[2022-12-10] MEDS: hydroCHLOROthiazide 25 MG TABLET PO (08:23)
[2022-12-10] MEDS: Metoprolol Tartrate 12.5 MG HALFTAB PO ×2 (08:23→20:29)
[2022-12-10] MEDS: Magnesium Oxide 400 MG TABLET PO (08:23)
[2022-12-10] MEDS: Albuterol Sulfate 90 MCG 8 GM INHALER 2 PUFF INHALE (08:24)
[2022-12-10] MEDS: Fluticasone Propionate Nasal 16 GM SPRAY 1 SPRAY NOSTRIL-B (08:24)
[2022-12-10] MEDS: 0.9 % Sodium Chloride Flush 3 ML SYRINGE IVFLUSH ×3 (08:24→20:29)
--- NOTE | 2022-12-10 12:05 | HO.PM.IMPN ---
Subjective Subjective Date of Service: 12/10/22 Interval History: wheezing improved, dyspnea slightly improved but still tachypneic with minimal movement/talking no chest pain no fever Review of Systems Review of Systems: Yes all other systems are reviewed and are negative Physical Exam Vital Signs: Vital Signs: Last Vital Signs Temp 97.8 F 12/10/22 11:50 Pulse 74 12/10/22 11:50 Resp 18 12/10/22 11:50 BP 128/64 12/10/22 11:50 Pulse Ox 95 12/10/22 11:50 O2 Del Method 12/10/22 11:50 O2 Flow Rate 2 12/09/22 03:59 BMI result Body Mass Index 27.4 Const: Other: Gen: mild resp distress HEENT: sclera anicteric, moist mucus membranes Neck: supple Lungs: tachypneic, soft expiratory wheeze Heart: regular rate and rhythm, no murmurs Abd: soft, non-tender, non-distended Ext: no edema Skin: warm/well-perfused Neuro: alert and oriented x3, no focal findings Psych: appropriate affect Objective Data Active Medications Acetaminophen (Acetaminophen 325 Mg Tablet) 650 mg PO Q6H PRN PRN Reason: Pain, Mild (Pain Scale 1-3) Last Admin: 12/08/22 08:17 Dose: 650 mg Documented By: SOPHIE Albuterol Sulfate (Albuterol Sulfate 90 Mcg 8 Gm Inhaler) 2 puff INHALE Q4H PRN PRN Reason: Shortness Of Breath Or Wheezing Last Admin: 12/10/22 08:24 Dose: 2 puff Documented By: NORMA Artificial Tears (Artificial Tears 15 Ml Drops) 2 drop EYE-BOTH Q4H PRN PRN Reason: dry eye Atorvastatin Calcium (Atorvastatin Calcium 10 Mg Tablet) 10 mg PO DAILY [facility] Last Admin: 12/10/22 08:23 Dose: 10 mg Documented By: NORMA Albuterol Sulfate 2.5 mg/ (Ipratropium [place] 0.5 mg) 0 mg INHALE RQ4H WHILE AWAKE [facility] Last Admin: 12/10/22 11:12 Dose: 2.5 each Documented By: HO Enoxaparin Sodium (Enoxaparin Sodium 40 Mg/0.4 Ml Syringe) 40 mg SUBCUT Q24H [facility] Last Admin: 12/09/22 21:14 Dose: 40 mg Documented By: TISH Fluticasone Propionate (Fluticasone Propionate Nasal 16 Gm [place]) 1 spray NOSTRIL-B DAILY [facility] Last Admin: 12/10/22 08:24 Dose: 1 spray Documented By: NORMA Hydrochlorothiazide (Hydrochlorothiazide 25 Mg Tablet) 25 mg PO DAILY [facility]; Protocol Last Admin: 12/10/22 08:23 Dose: 25 mg Documented By: NORMA Levothyroxine Sodium (Levothyroxine Sodium 25 Mcg Tablet) 25 mcg PO DAILY@0600 [facility] Last Admin: 12/10/22 04:31 Dose: 25 mcg Documented By: TISH Loratadine (Loratadine 10 Mg Tablet) 10 mg PO DAILY [facility] Last Admin: 12/10/22 08:23 Dose: 10 mg Documented By: NORMA Magnesium Oxide (Magnesium Oxide 400 Mg Tablet) 400 mg PO DAILY [facility] Last Admin: 12/10/22 08:23 Dose: 400 mg Documented By: NORMA Methylprednisolone Sodium Succinate (Methylprednisolone Sod Succ 40 Mg/Ml Vial) 40 mg IVPUSH Q8H [facility] Last Admin: 12/10/22 11:17 Dose: 40 mg Documented By: NORMA Metoprolol Tartrate (Metoprolol Tartrate 12.5 Mg Halftab) 12.5 mg PO BID [facility]; Protocol Last Admin: 12/10/22 08:23 Dose: 12.5 mg Documented By: NORMA Omeprazole (Omeprazole 20 Mg Capsule.Dr) 20 mg PO DAILY@0630 [facility] Last Admin: 12/10/22 04:39 Dose: 20 mg Documented By: TISH Potassium Chloride (Potassium Chloride Packet 20 Meq Packet) 40 meq PO BID [facility] Last Admin: 12/10/22 08:23 Dose: 40 meq Documented By: NORMA Sodium Chloride (0.9 % Sodium Chloride Flush 3 Ml Syringe) 3 ml IVFLUSH QSHIFT [facility] Last Admin: 12/10/22 08:24 Dose: 3 ml Documented By: NORMA Vitamin D (Cholecalciferol (Vitamin D3) 25 Mcg Tablet) 25 mcg PO DAILY [facility] Last Admin: 12/10/22 08:23 Dose: 25 mcg Documented By: NORMA Labs 12/09/22 05:30 12/10/22 06:28 Labs: Laboratory Results - last 24 hr 12/10/22 06:28 Anion Gap 15 Estim Creat Clear Calc 58.7 Estimated GFR > 60 Fasting Glucose 105 H Calcium 9.7 D Total Bilirubin 0.5 AST 20 ALT 25 Alkaline Phosphatase 53 Total Protein 6.2 L Albumin 3.6 TTE 12/09/22 1. Normal LV systolic function with impaired relaxation filling pattern? 2. Moderately reduced RV systolic function by TAPSE? 3. Normal cardiac valvular Doppler ? 4. No gross pericardial effusion ? Assessment and Plan (1) Acute dyspnea: Status: Acute (2) Paroxysmal atrial fibrillation with RVR: Status: Acute (3) Hypertension: Status: Acute (4) Hyperlipidemia: Status: Acute Plan hospital d#4 82yo female with a past medical history of osteoarthritis, HLD, HTN, osteoporosis, and steroid-dependent polymyalgia rheumatica, presenting to the ED complaining of productive cough, increasing SOB, orthopnea, chest discomfort with cough,?nausea, vomiting, and diarrhea x1 week.? Possible bronchitis with underlying COPD partially treated by steroids # acute bronhcitis with possible underlying COPD - Pulmonology consultation appreciated, steroids IV then taper gradually to home dose of 2.5 mg prednisone bid, outpatient PFTs + Pulm f/u, neb treatments # paroxysmal AF - resolved p 1 dose metoprolol and has not recurred. likely due to lung pathology. TTE reviewed- no AC given no significant LAE on TTE. Metoprolol for rate control if recurs. # HTN - continue HCTZ, metoprolol added # HLD - continue statin # PMR - on steroids as above # hypothyroidism - continue LT4 # VTE ppx: LMWH # dispo: anticipate home in next 1-2d In my clinical judgment, the patient requires continued inpatient hospitalization for the following reasons: dyspnea Time Spent With Patient Time: Total time managing care of this patient today __35__ minutes. Quality Stroke Does the patient have a stroke diagnosis?: No VTE Prior VTE?: No VTE Risk Level:: Medical - moderate - high VTE Device Contraindication: Treatment Not Indicated VTE Drug Contraindication: N/A - Med Ordered
[2022-12-10] MEDS: Artificial Tears 15 ML DROPS 2 DROP EYE-BOTH (17:24)
[2022-12-10] MEDS: Enoxaparin Sodium 40 MG/0.4 ML SYRINGE SUBCUT (20:29)
[2022-12-11] MEDS: predniSONE 20 MG TABLET 40 MG PO (00:51)
[2022-12-11 02:11] VITALS: BP 121/68; PULSE 86; RESP 18; TEMP 36.5; O2SAT 95
[2022-12-11 04:00] VITALS: BP 116/64; PULSE 94; RESP 18; TEMP 36.2; O2SAT 94
[2022-12-11] MEDS: Omeprazole 20 MG CAPSULE.DR PO (06:22)
[2022-12-11] MEDS: Levothyroxine Sodium 25 MCG TABLET PO (06:22)
[2022-12-11 06:59] LABS: Alanine Aminotransferase 29 U/L (0-31); Albumin Level 3.8 g/dL (3.5-5.0); Alkaline Phosphatase 51 U/L (39-117); Anion Gap 18 (12-20); Aspartate Amino Transferase 23 U/L (5-31); Bilirubin Total 0.6 mg/dL (0.0-1.0); Blood Urea Nitrogen 21 mg/dL (9-16); Calcium 9.7 mg/dL (8.4-10.2); Carbon Dioxide 21 mmol/L (22-29); Chloride 107 mmol/L (96-108); Creatinine Clr Calc Pharmacy 51.7; Estimated Glomerular Filt Rate 59; Glucose Fasting 100 mg/dL (60-99); Potassium 5.2 mmol/L (3.3-5.1); Sodium 141 mmol/L (135-145); Total Protein 6.3 g/dL (6.5-8.0)
[2022-12-11 07:26] VITALS: BP 133/78; PULSE 80; RESP 20; TEMP 36.4; O2SAT 98
[2022-12-11] MEDS: Atorvastatin Calcium 10 MG TABLET PO (08:16)
[2022-12-11] MEDS: Artificial Tears 15 ML DROPS 2 DROP EYE-BOTH (08:16)
[2022-12-11] MEDS: Magnesium Oxide 400 MG TABLET PO (08:17)
[2022-12-11] MEDS: Cholecalciferol (Vitamin D3) 25 MCG TABLET PO (08:17)
[2022-12-11] MEDS: Loratadine 10 MG TABLET PO (08:17)
[2022-12-11] MEDS: Potassium Chloride Packet 20 MEQ PACKET 40 MEQ PO (08:17)
[2022-12-11] MEDS: Metoprolol Tartrate 12.5 MG HALFTAB PO (08:17)
[2022-12-11] MEDS: hydroCHLOROthiazide 25 MG TABLET PO (08:17)
[2022-12-11] MEDS: Fluticasone Propionate Nasal 16 GM SPRAY 1 SPRAY NOSTRIL-B (08:23)
[2022-12-11 09:58] VITALS: BP 133/78; PULSE 80; O2SAT 98
[2022-12-11 11:19] VITALS: BP 138/88; PULSE 71; RESP 20; TEMP 36.6; O2SAT 93
--- NOTE | 2022-12-11 11:45 | P.F2F_ITS ---
Service Date Service Date: 12/11/22 Encounter Date of encounter: 12/11/22 Reasons for Services Signs and symptoms assessed: dyspnea Reason for correction: medication management, medication treatment and teach disease management Reason for physical therapy: home safety and mobility, therapeutic exercises, gait/transfer training, assess need for DME, ADL training and energy conservation MD Overseeing Care: Randolph Layne Homebound: Leaving the home is medically contraindicated at this time without the asist of a device and/or another person due th the listed conditions above and below. Reason homebound: shortness of breath with minimal effort and weakness related to hospital stay Certification: Based on the above findings, I certify that this patient is confined to the home and needs intermittent correction care, physical therapy and/or speech therapy, or continues to need occupational therapy. The patient is under my care, and I have initiated the establishment of the plan of care. The patient will be followed by a physician who will periodically review the plan of care. Time Spent With Patient Time: Total time managing care of this patient today ____ minutes.
--- NOTE | 2022-12-11 11:55 | PM.DS ---
DS: Providers Provider Date of Service: 12/11/22 Date of admission: 12/07/22 18:32 Date of discharge: 12/11/22 Primary care physician: Randolph Layne MD Consults: 12/09/22 08:06 Consult to Cardiology Routine Consulting Provider: [facility] Reason for consultation: paroxysmal AF Consult to Pulmonology Routine Consulting Provider: [facility] Reason for consultation: dyspnea DS: Diagnosis Discharge Diagnosis (1) Acute dyspnea: Status: Acute (2) Paroxysmal atrial fibrillation with RVR: Status: Acute (3) Bronchitis: Status: Acute DS: Summary Hospital Course Hospital Course: from admission H+P by hospitalist Geovanny Hollis DO, 12/07/22: 82-year-old female with a past medical history of osteoarthritis, HLD, HTN, osteoporosis, polymyalgia rheumatica, presenting to the ED complaining of productive cough, increasing SOB, orthopnea, chest discomfort with cough,? nausea, vomiting, and diarrhea x1 week.? Reports decreased p.o. intake /inability to tolerate p.o.??.? Patient states has had similar respiratory complaints however not to this degree.? In the emergency room CTA of the chest failed to demonstrate any acute pathology including heart failure or PE.? She was given a DuoNeb and steroids per remains wheezy however without O2 requirement 82yo female with a past medical history of osteoarthritis, HLD, HTN, osteoporosis, and steroid-dependent polymyalgia rheumatica, presenting to the ED complaining of productive cough, increasing SOB, orthopnea, chest discomfort with cough,?nausea, vomiting, and diarrhea x1 week.? Possible bronchitis with underlying COPD partially treated by steroids. Pulmonology consultation done and patient started on steroids and nebulizer treatments. Symptoms improved markedly. She was discharged on prednisone taper and albuterol inhaler and will need Primary Care and Pulmonology follow-up to include Pulmonary Function Testing to rule out underlying chronic lung disease. She did have 1 brief episode of paroxysmal AF that resolved after 1 dose of metoprolol and has not recurred.? Likely due to lung pathology.? Cardiology consulted. TTE reviewed- no anticoagulation recommended given no significant LAE on TTE.? Started on low-dose metoprolol. Time Spent with Patient Time attestation: Total time managing care of this patient today ____ minutes. Discharge coordination time: Greater than 30 minutes Quality: Safe Use of Opioids Does Pt have an Active Cancer Diagnosis on the Problem List?: No Quality: Stroke Does the patient have a stroke diagnosis?: No Physical Exam Vital Signs: Vital Signs: Last Vital Signs Temp 97.8 F 12/11/22 11:19 Pulse 71 12/11/22 11:19 Resp 20 12/11/22 11:19 BP 138/88 12/11/22 11:19 Pulse Ox 93 12/11/22 11:19 O2 Del Method 12/11/22 11:19 O2 Flow Rate 2 12/09/22 03:59 BMI result Body Mass Index 27.4 Gen: in no acute distress HEENT: sclera anicteric, moist mucus membranes Neck: supple Lungs: clear to auscultation bilaterally Heart: regular rate and rhythm, no murmurs Abd: soft, non-tender, non-distended Ext: no edema Skin: warm/well-perfused Neuro: alert and oriented x3, no focal findings Psych: appropriate affect DS: Data Data Completed and Pending Completed studies during hospitalization [Text1]: Laboratory Results WBC 12.7 X10*3/uL (4.8-10.8) H 12/09/22 05:30 RBC 4.56 X10*6/uL (4.20-5.50) 12/09/22 05:30 Hgb 14.1 g/dl (12.0-16.0) 12/09/22 05:30 Hct 41.8 % (37.0-47.0) 12/09/22 05:30 MCV 91.7 fL (80.0-98.0) 12/09/22 05:30 MCH 30.9 pg (27.0-33.0) 12/09/22 05:30 MCHC 33.7 g/dl (31.0-35.0) 12/09/22 05:30 RDW 13.4 % (11.0-16.0) 12/09/22 05:30 Plt Count 256 X10*3/uL (160-400) 12/09/22 05:30 MPV 10.6 fL (9.4-12.3) 12/09/22 05:30 Immature Gran % (Auto) 0.9 % (0.0-0.4) H 12/09/22 05:30 Neut % (Auto) 64.3 % (45-73) 12/09/22 05:30 Lymph % (Auto) 27.6 % (20-40) 12/09/22 05:30 [place] % (Auto) 6.9 % (2-11) 12/09/22 05:30 Eos % (Auto) 0.0 % (0-4) 12/09/22 05:30 Baso % (Auto) 0.3 % (0-2) 12/09/22 05:30 Lymph # (Auto) 3.5 X10*3/uL (1.2-4.9) 12/09/22 05:30 Luce # (Auto) 0.9 X10*3/uL (0.1-1.2) 12/09/22 05:30 Eos # (Auto) 0.0 X10*3/uL (0.0-0.4) 12/09/22 05:30 Baso # (Auto) 0.0 X10*3/uL (0.0-0.2) 12/09/22 05:30 Abs Immat Gran (auto) 0.12 X10*3/uL (0.00-0.03) H 12/09/22 05:30 Absolute Neuts (auto) 8.2 x10*3/uL (2.0-8.3) 12/09/22 05:30 Absolute Nucleated RBC 0.000 X10*3/uL (0.0-0.012) 12/09/22 05:30 Nucleated RBC % (auto) 0.0 /100WBC (0.0-0.2) 12/09/22 05:30 Smear Tech's Comments VERIFIED 12/09/22 05:30 PT 12.3 SEC (10.0-13.1) 12/07/22 14:41 INR 1.1 (0.9-1.1) 12/07/22 14:41 Sodium 141 mmol/L (135-145) 12/11/22 05:54 Potassium 5.2 mmol/L (3.3-5.1) H 12/11/22 05:54 Chloride 107 mmol/L (96-108) 12/11/22 05:54 Carbon Dioxide 21 mmol/L (22-29) L 12/11/22 05:54 Anion Gap 18 (12-20) 12/11/22 05:54 BUN 21 mg/dL (9-16) H 12/11/22 05:54 Creatinine 0.91 mg/dL (0.5-1.4) 12/11/22 05:54 Estim Creat Clear Calc 51.7 12/11/22 05:54 Estimated GFR 59 12/11/22 05:54 Random Glucose 95 mg/dL (60-115) 12/07/22 16:01 Fasting Glucose 100 mg/dL (60-99) H 12/11/22 05:54 Calcium 9.7 mg/dL (8.4-10.2) 12/11/22 05:54 Magnesium 1.7 mg/dL (1.6-2.6) 12/07/22 16:01 Total Bilirubin 0.6 mg/dL (0.0-1.0) 12/11/22 05:54 Direct Bilirubin 0.2 mg/dL (0.0-0.5) 12/07/22 16:01 AST 23 U/L (5-31) 12/11/22 05:54 ALT 29 U/L (0-31) 12/11/22 05:54 Alkaline Phosphatase 51 U/L (39-117) 12/11/22 05:54 Troponin I High Sens 12.0 ng/L (<3.5-17.0) 12/07/22 18:00 B-Natriuretic Peptide < 10 pg/mL (<100) 12/07/22 14:41 Total Protein 6.3 g/dL (6.5-8.0) L 12/11/22 05:54 Albumin 3.8 g/dL (3.5-5.0) 12/11/22 05:54 Lipase 14 U/L (8-78) 12/07/22 16:01 Influenza Type A (PCR) NEGATIVE (Negative) 12/07/22 14:41 Influenza Type B (PCR) NEGATIVE (Negative) 12/07/22 14:41 RSV RNA Qual (PCR) NEGATIVE (Negative) 12/07/22 14:41 SARS-CoV-2 RNA (RT-PCR) NEGATIVE (Negative) 12/07/22 14:41 Impressions Chest CTA 12/07/22 16:56 IMPRESSION: No evidence of pulmonary emboli. VTE: negative. Chest X-Ray 12/09/22 08:53 IMPRESSION: Lungs clear. No acute intrathoracic disease. TTE 12/09/22 1. Normal LV systolic function with impaired relaxation filling pattern? 2. Moderately reduced RV systolic function by TAPSE? 3. Normal cardiac valvular Doppler ? 4. No gross pericardial effusion ? Discharge Plan Discharge Anticipated Discharge Date/Time: 12/11/22 11:17 Patient Disposition: Home Health Service Discharge Diagnosis: bronchitis possible underlying chronic lung disease paroxysmal atrial fibrillation Referrals: Mick Araujo MD [Physician] - 1 Week Randolph Layne MD [Primary Care Provider] - 1 Week Discharge Medications: New polyvinyl alcohol [Artificial Tears (polyvin alc)] 1.4 % Drops 2 drp ophthalmic (eye) Q4H PRN (Reason: dry eye) Qty: 15 0RF prednisone 10 mg tablet See Rx Instructions .ROUTE .COMPLEX Qty: 20 0RF Rx Instructions: 40 mg daily x 2 days, then 30 mg daily x 2 days, then 20 mg daily x 2 days, then 10 mg daily x 2 days, then return to prior dosing metoprolol tartrate 25 mg tablet 12.5 mg PO BID Qty: 30 0RF Continued acetaminophen [Mapap Arthritis Pain] 650 mg tablet extended release 1 tab PO Q8H PRN (Reason: pain) magnesium oxide 400 mg (241.3 mg magnesium) Tablet 400 mg PO DAILY cholecalciferol (vitamin D3) [Vitamin D3] 25 mcg (1,000 unit) Tablet 25 mcg PO DAILY albuterol sulfate [ProAir HFA] 90 mcg/actuation HFA aerosol inhaler 2 puff inhalation Q6H PRN (Reason: Shortness Of Breath Or Wheezing) Qty: 8.5 0RF alendronate 70 mg tablet 70 mg PO TH@0900 omeprazole 20 mg capsule,delayed release(DR/EC) 20 mg PO DAILY@0630 fexofenadine 180 mg tablet 180 mg PO DAILY fluticasone propionate [Allergy Relief (fluticasone)] 50 mcg/actuation spray,suspension 1 spray intranasal DAILY Rx Instructions: administer into each nostril simvastatin 20 mg tablet 20 mg PO DAILY levothyroxine 25 mcg capsule 25 mcg PO DAILY@0600 hydrochlorothiazide 25 mg tablet 25 mg PO DAILY folic acid 1 mg tablet 1 mg PO DAILY Held prednisone 5 mg tablet 2.5 mg PO BID Hold Instructions: Resume on 12/20/22. Discontinued ibuprofen 800 mg tablet 1 tab PO TID PRN (Reason: pain) celecoxib 200 mg capsule 200 mg PO DAILY Qty: 30 2RF Discharge Orders: Discharge Order (Routine); Ordered 12/11/22 Ordered By: Evangelist Silva Diet: Advance to usual diet Activity on Discharge: As tolerated Stand Alone Forms: Patient Portal Discharge page Care Plan Goals: lung health Health Concerns: bronchitis possible underlying chronic lung disease paroxysmal atrial fibrillation Plan of Treatment: prednisone taper as follows: 40 mg daily x 2 days 30 mg daily x 2 days 20 mg daily x 2 days 10 mg daily x 2 days then resume prior dosing of 2.5 mg twice daily follow up with your primary care doctor as well as tub wash operator Dr Araujo. you will need Pulmonary Function Testing start metoprolol 12.5 mg twice daily for atrial fibrillation/hypertension Please follow up with your primary care doctor within 1 week. Return to the hospital if you experience recurrent or worsening symptoms. Assessment: See Discharge Summary.
== END 2022-12-11 13:40 | disposition home health service (06) | DRG 202 ==
LOC: HO.ED 18:00 → HO.EDOVER 18:38 → HO.IMC 12-08 05:22
PROVIDERS: Physician Assistant; Admitting Provider Hospitalist; Emergency Provider Emergency Medicine Emergency Medical Services; PCP Internal Medicine Rheumatology; Visit Provider Family Medicine
DX: J20.8 Acute bronchitis due to other specified organisms (principal); J44.0 Chronic obstructive pulmonary disease with (acute) lower respiratory infection; M35.3 Polymyalgia rheumatica; E78.5 Hyperlipidemia, unspecified; I10 Essential (primary) hypertension; E03.9 Hypothyroidism, unspecified; I48.0 Paroxysmal atrial fibrillation; Z20.822 Contact with and (suspected) exposure to COVID-19; Z87.891 Personal history of nicotine dependence; Z88.2 Allergy status to sulfonamides; Z88.6 Allergy status to analgesic agent; Z79.51 Long term (current) use of inhaled steroids; Z79.52 Long term (current) use of systemic steroids; Z79.890 Hormone replacement therapy; Z79.899 Other long term (current) drug therapy
CPT/HCPCS: 0241U; 36415; 71045; 71275; 80048; 80053; 80076; 83690; 83735; 83880; 84484; 85025; 85610; 93005; 93306; 94640; 96374; 97162; 99285; J1650; J2920; J2930; Q9957; Q9967

== ENCOUNTER 2022-12-27 12:07 | Outpatient (REF) | payer MEDICARE, SELFPAY ==
[2022-12-27 13:27] LABS: MANUAL DIFF FLAG NO
[2022-12-27 14:01] LABS: Basophils Percent Auto 0.2 % (0-2); Eosinophils Percent Auto 0.3 % (0-4); Hematocrit 39.8 % (37.0-47.0); Hemoglobin 13.5 g/dl (12.0-16.0); Imm Gran Abs Auto 0.12 X10*3/uL (0.00-0.03); Imm Gran Pct Auto 0.9 % (0.0-0.4); Lymphocytes Absolute Auto 1.6 X10*3/uL (1.2-4.9); Lymphocytes Percent Auto 11.6 % (20-40); Mean Corpuscular HGB Conc 33.9 g/dl (31.0-35.0); Mean Corpuscular Volume 91.3 fL (80.0-98.0); Mean Platelet Volume 11.1 fL (9.4-12.3); Monocytes Absolute Auto 0.9 X10*3/uL (0.1-1.2); Monocytes Percent Auto 6.3 % (2-11); Neutrophils Absolute Auto 11.1 x10*3/uL (2.0-8.3); Neutrophils Percent Auto 80.7 % (45-73); Platelet Count 200 X10*3/uL (160-400); Red Blood Count 4.36 X10*6/uL (4.20-5.50); Red Cell Distribution Width 13.1 % (11.0-16.0); White Blood Count 13.8 X10*3/uL (4.8-10.8)
[2022-12-27 14:15] LABS: Alanine Aminotransferase 16 U/L (0-31); Albumin Level 3.8 g/dL (3.5-5.0); Alkaline Phosphatase 53 U/L (39-117); Anion Gap 14 (12-20); Aspartate Amino Transferase 14 U/L (5-31); Bilirubin Total 0.5 mg/dL (0.0-1.0); Blood Urea Nitrogen 21 mg/dL (9-16); C Reactive Protein 0.23 mg/dL (< or = 0.50); Calcium 9.5 mg/dL (8.4-10.2); Carbon Dioxide 32 mmol/L (22-29); Chloride 97 mmol/L (96-108); Estimated Glomerular Filt Rate > 60; Glucose Random 88 mg/dL (60-115); Potassium 3.3 mmol/L (3.3-5.1); Sodium 140 mmol/L (135-145); Total Protein 6.2 g/dL (6.5-8.0)
[2022-12-27 14:42] LABS: Erythrocyte Sedimentation Rate 32 MM/HR (0-20)
== END 2022-12-27 12:08 | disposition home or self-care (01) ==
LOC: HO.10HDL 12:07
PROVIDERS: Visit Provider Internal Medicine
DX: E03.9 Hypothyroidism, unspecified (principal); J44.9 Chronic obstructive pulmonary disease, unspecified; I10 Essential (primary) hypertension
CPT/HCPCS: 36415; 80053; 85025; 85652; 86140

== ENCOUNTER → 2023-01-29 14:37 | Outpatient (BNVA) | payer MEDICARE, SELFPAY | PROVIDERS: PCP Internal Medicine; Referring Provider Internal Medicine; Visit Provider Internal Medicine Cardiovascular Disease | DX: I48.91 Unspecified atrial fibrillation (principal); I51.7 Cardiomegaly; R06.02 Shortness of breath; Z79.52 Long term (current) use of systemic steroids | CPT/HCPCS: 93005; 99212 ==

== ENCOUNTER 2023-02-18 09:30 | Outpatient (REF) | payer MEDICARE, SELFPAY ==
[2023-02-18 11:23] LABS: Anion Gap 12 (12-20); Blood Urea Nitrogen 21 mg/dL (9-16); Carbon Dioxide 33 mmol/L (22-29); Chloride 100 mmol/L (96-108); Estimated Glomerular Filt Rate 55; Glucose Random 104 mg/dL (60-115); Sodium 141 mmol/L (135-145)
== END 2023-02-18 09:31 | disposition home or self-care (01) ==
LOC: HO.LAB 09:30
PROVIDERS: PCP Internal Medicine; Visit Provider Internal Medicine Cardiovascular Disease
DX: R06.02 Shortness of breath (principal)
CPT/HCPCS: 36415; 80048

== ENCOUNTER 2023-03-04 11:22 | Outpatient (REF) | payer MEDICARE, SELFPAY ==
[2023-03-04 13:44] LABS: MANUAL DIFF FLAG NO
[2023-03-04 13:54] LABS: Basophils Absolute Auto 0.1 X10*3/uL (0.0-0.2); Basophils Percent Auto 0.5 % (0-2); Eosinophils Absolute Auto 0.1 X10*3/uL (0.0-0.4); Eosinophils Percent Auto 0.5 % (0-4); Hematocrit 39.4 % (37.0-47.0); Hemoglobin 13.4 g/dl (12.0-16.0); Imm Gran Pct Auto 0.9 % (0.0-0.4); Lymphocytes Absolute Auto 2.9 X10*3/uL (1.2-4.9); Lymphocytes Percent Auto 26.6 % (20-40); Mean Corpuscular Hemoglobin 30.9 pg (27.0-33.0); Mean Platelet Volume 10.8 fL (9.4-12.3); Monocytes Absolute Auto 0.8 X10*3/uL (0.1-1.2); Monocytes Percent Auto 7.6 % (2-11); Neutrophils Percent Auto 63.9 % (45-73); Platelet Count 304 X10*3/uL (160-400); Red Blood Count 4.33 X10*6/uL (4.20-5.50); Red Cell Distribution Width 12.8 % (11.0-16.0)
[2023-03-04 14:11] LABS: Alanine Aminotransferase 14 U/L (0-31); Albumin Level 3.9 g/dL (3.5-5.0); Alkaline Phosphatase 40 U/L (39-117); Anion Gap 15 (12-20); Aspartate Amino Transferase 15 U/L (5-31); Bilirubin Total 0.6 mg/dL (0.0-1.0); Blood Urea Nitrogen 16 mg/dL (9-16); C Reactive Protein 0.62 mg/dL (< or = 0.50); Calcium 10.1 mg/dL (8.4-10.2); Carbon Dioxide 31 mmol/L (22-29); Chloride 98 mmol/L (96-108); Estimated Glomerular Filt Rate > 60; Glucose Random 80 mg/dL (60-115); Potassium 3.1 mmol/L (3.3-5.1); Sodium 141 mmol/L (135-145); Total Protein 6.1 g/dL (6.5-8.0)
[2023-03-04 14:29] LABS: Thyroid Stimulating Hormone 2.55 uIU/mL (0.32-4.0); Vitamin D 25-OH Total 43.2 ng/mL (>30)
[2023-03-04 15:05] LABS: Erythrocyte Sedimentation Rate 23 MM/HR (0-20)
== END 2023-03-04 11:23 | disposition home or self-care (01) ==
LOC: HO.10HDL 11:22
PROVIDERS: Visit Provider Internal Medicine
DX: I10 Essential (primary) hypertension (principal); E03.9 Hypothyroidism, unspecified; M35.3 Polymyalgia rheumatica; M85.80 Other specified disorders of bone density and structure, unspecified site
CPT/HCPCS: 36415; 80053; 82306; 82550; 84439; 84443; 85025; 85652; 86140

== ENCOUNTER → 2023-03-05 13:14 | Outpatient (REF) | payer MEDICARE, SELFPAY ==
--- NOTE | 2023-03-05 13:18 | HM_ITS ---
Conclusion: 1. Patient was monitored for total period of 7 days 2. Baseline was normal sinus with average heart of 69 beats per minute 3. No significant pauses noted 4. Frequent PACs with total burden of 2.3% with multiple short runs of SVT, longest lasting 14 beats and the fastest at 157 beats per minute 5. Very rare PVCs noted with 1 nonsustained VT at 132 beats per minute 6. No patient reported events MTDD
== END ==
LOC: HO.CARD 13:14
PROVIDERS: PCP Internal Medicine; Visit Provider Internal Medicine Cardiovascular Disease
DX: I48.91 Unspecified atrial fibrillation (principal)
CPT/HCPCS: 93242

== ENCOUNTER → 2023-03-31 12:45 | Outpatient (BNVA) | payer MEDICARE, SELFPAY | PROVIDERS: PCP Internal Medicine; Visit Provider Internal Medicine Rheumatology | DX: M75.81 Other shoulder lesions, right shoulder (principal); F32.A Depression, unspecified; M35.3 Polymyalgia rheumatica | CPT/HCPCS: 20610; 99212 ==

== ENCOUNTER 2023-04-03 13:38 | Outpatient (REF) | payer MEDICARE, SELFPAY ==
[2023-04-03 15:38] LABS: Erythrocyte Sedimentation Rate 20 MM/HR (0-20)
[2023-04-03 16:04] LABS: C Reactive Protein 0.23 mg/dL (< or = 0.50)
== END 2023-04-03 13:39 | disposition home or self-care (01) ==
LOC: HO.LAB 13:38
PROVIDERS: PCP Internal Medicine; Visit Provider Internal Medicine Rheumatology
DX: M35.3 Polymyalgia rheumatica (principal); I25.10 Atherosclerotic heart disease of native coronary artery without angina pectoris; I51.7 Cardiomegaly
CPT/HCPCS: 36415; 85652; 86140; 99212

== ENCOUNTER → 2023-04-08 10:45 | Outpatient (BNVA) | payer MEDICARE, SELFPAY | PROVIDERS: PCP Internal Medicine; Visit Provider Internal Medicine | DX: R06.09 Other forms of dyspnea (principal); M35.3 Polymyalgia rheumatica | CPT/HCPCS: 94010; 99212 ==

== ENCOUNTER → 2023-05-01 09:03 | Outpatient (REF) | payer MEDICARE, SELFPAY ==
--- NOTE | 2023-05-01 09:06 | CA_ITS ---
Transthoracic Echocardiogram Patient (Last, First, Middle): Vero Ramírez A Gender: Female Date of : 1940 Age: 82 Procedure Date: 05/01/2023 Procedure Type: Transthoracic Echocardiogram Location: OP Height: 152.4 cm Weight: 73.48 kg BSA: 1.71 m2 Heart Rate: bpm BP: 135 / 78 mmHg Roving Or Yarn Color Checker: GILMAR Referring MD: Jax Clarke MD Symptoms: I51.7 - Cardiomegaly Study Quality: Adequate ECG Rhythm: Sinus Conclusions: - The left ventricular systolic function is normal. The visually estimated ejection fraction is between 60-65%. - Normal right ventricular cavity size. There is low normal right ventricular systolic function. Findings Left Ventricle Normal left ventricular cavity size. The left ventricular systolic function is normal. The visually estimated ejection fraction is between 60-65%. Right Ventricle Normal right ventricular cavity size. There is low normal right ventricular systolic function. Venous The inferior vena cava is normal in size and collapses greater than 50% with inspiration. Prior Study Comparison Changes noted compared to prior study dated: 12/09/2022. Improved right ventricular size. Measurements 2D Linear Measurements IVSd: 0.88 0.6-0.9/0.6-1.0 cm LVIDd: 4.82 3.9-5.3/4.2-5.9 cm LVIDd Index: 2.82 2.4-3.2/2.2-3.1 cm/m2 LVIDs: 3.13 2.0-3.6 cm LVPWd: 0.75 0.7-1.1 cm LV Mass: 162.22 67-162/88-224 g LV Mass Index: 94.87 43-95/49-115 g/m2 Right Ventricle TAPSE (mm): 13.00 TVS' Shmuel: 11.70 Tricuspid Valve TR Pk Shmuel: 2.12 TR Pk Grad: 18.00 RA Press: 3.00 RVSP: 21.00 Updated in Other Vendor System with Status of Final Edgar Clinton MD electronically signed on 05/02/2023 1:25:31 PM with status of Final
== END ==
LOC: HO.CARD 09:03
PROVIDERS: PCP Internal Medicine; Visit Provider Internal Medicine Cardiovascular Disease
DX: I51.7 Cardiomegaly (principal)
CPT/HCPCS: 93308

== ENCOUNTER → 2023-05-01 09:06 | Outpatient (BNV) | payer MEDICARE, SELFPAY | PROVIDERS: PCP Internal Medicine; Visit Provider Internal Medicine | DX: I51.7 Cardiomegaly (principal) | CPT/HCPCS: 93308 ==

== ENCOUNTER 2023-06-02 11:19 | Outpatient (REF) | payer MEDICARE, SELFPAY ==
[2023-06-02 13:36] LABS: MANUAL DIFF FLAG NO
[2023-06-02 13:51] LABS: Basophils Absolute Auto 0.1 X10*3/uL (0.0-0.2); Basophils Percent Auto 0.5 % (0-2); Eosinophils Absolute Auto 0.1 X10*3/uL (0.0-0.4); Eosinophils Percent Auto 0.5 % (0-4); Hematocrit 42.6 % (37.0-47.0); Hemoglobin 14.3 g/dl (12.0-16.0); Imm Gran Abs Auto 0.14 X10*3/uL (0.00-0.03); Imm Gran Pct Auto 1.1 % (0.0-0.4); Lymphocytes Absolute Auto 2.6 X10*3/uL (1.2-4.9); Lymphocytes Percent Auto 20.3 % (20-40); Mean Corpuscular HGB Conc 33.6 g/dl (31.0-35.0); Mean Corpuscular Volume 92.4 fL (80.0-98.0); Mean Platelet Volume 11.2 fL (9.4-12.3); Monocytes Absolute Auto 0.9 X10*3/uL (0.1-1.2); Monocytes Percent Auto 6.8 % (2-11); Neutrophils Percent Auto 70.8 % (45-73); Platelet Count 283 X10*3/uL (160-400); Red Blood Count 4.61 X10*6/uL (4.20-5.50); Red Cell Distribution Width 13.9 % (11.0-16.0); White Blood Count 12.6 X10*3/uL (4.8-10.8)
[2023-06-02 14:10] LABS: Alanine Aminotransferase 14 U/L (0-31); Albumin Level 3.9 g/dL (3.5-5.0); Alkaline Phosphatase 50 U/L (39-117); Anion Gap 12 (12-20); Aspartate Amino Transferase 14 U/L (5-31); Bilirubin Total 0.6 mg/dL (0.0-1.0); Blood Urea Nitrogen 12 mg/dL (9-16); Calcium 10.6 mg/dL (8.4-10.2); Carbon Dioxide 31 mmol/L (22-29); Chloride 99 mmol/L (96-108); Estimated Glomerular Filt Rate > 60; Glucose Random 87 mg/dL (60-115); Potassium 3.2 mmol/L (3.3-5.1); Sodium 139 mmol/L (135-145); Total Protein 6.8 g/dL (6.5-8.0)
[2023-06-02 14:34] LABS: Free T4 (Free Thyroxine) 1.22 ng/dL (0.71-1.85); Thyroid Stimulating Hormone 2.62 uIU/mL (0.32-4.0)
== END 2023-06-02 11:20 | disposition home or self-care (01) ==
LOC: HO.10HDL 11:19
PROVIDERS: Visit Provider Internal Medicine
DX: I10 Essential (primary) hypertension (principal); E03.9 Hypothyroidism, unspecified; K21.9 Gastro-esophageal reflux disease without esophagitis
CPT/HCPCS: 36415; 80053; 84439; 84443; 85025

== ENCOUNTER 2023-08-06 08:56 | Outpatient (AMB) | payer MEDICARE, SELFPAY ==
--- NOTE | 2023-08-06 08:58 | A.OFFVIS_ITS ---
Intake Vital Signs 08/06/23 08:59 Height 5 ft Weight 166 lb 14.239 oz BMI 32.6 BP 124/80 Blood Pressure Location Lt brachial Position Sitting Pulse 85 Pulse Source Pulse Oximeter Temp 97.1 F Temp Source Skin Pulse Oximetry (%) 98 Oxygen Delivery Method Room Air Intake Visit Reasons: pmr Intake Note: Patient presents today to follow up on PMR. c/o right shoulder pain, requesting cortisone injection today. Administrative Receptionist Required: No Accompanied by: Self / Same As Patient Allergies naproxen [NAPROXEN] Allergy (Intermediate, Verified 08/06/23 08:59) BLISTERS IN MOUTH Sulfa (Sulfonamide Antibiotics) [SULFA (SULFONAMIDE ANTIBIOTICS)] Allergy (Intermediate, Verified 08/06/23 08:59) BLISTERS ON TONGUE Medication List - Last Reconciled 08/06/23 by Randolph Layne MD acetaminophen ER (Mapap Arthritis Pain) 1 tab PO Q8H PRN albuterol sulfate 90 mcg/actuation (ProAir HFA) 2 puffs inhalation Q6H PRN cholecalciferol (vitamin D3) (Vitamin D3) 25 mcg PO DAILY fexofenadine 180 mg PO DAILY fluticasone propionate 50 mcg/actuation (Allergy Relief (fluticasone)) 1 spray intranasal DAILY folic acid 1 mg PO DAILY hydrochlorothiazide 25 mg PO DAILY levothyroxine 25 mcg PO DAILY magnesium oxide 400 mg PO DAILY metoprolol tartrate 12.5 mg (1/2 x 25 mg) PO BID omeprazole 20 mg PO DAILY@0630 polyvinyl alcohol 1.4% (Artificial Tears (polyvinyl alcohol)) 2 drps ophthalmic (eye) Q4H PRN potassium chloride ER 10 mEq PO DAILY prednisone 7.5 mg (3 x 2.5 mg) PO DAILY sertraline 25 mg PO DAILY simvastatin 20 mg PO DAILY HPI HPI Comments History of Present Illness Details The patient returns for evaluation of her PMR, osteoarthritis and osteoporosis. She remains on prednisone at 10 mg daily. She again complains of pain in the right shoulder. I had injected the shoulder back in March. She wants another injection today although she admits she only had about 5 or 6 weeks of benefit with the previous injection. There is knee pain when she walks. This is a difficult for her on stairs. She has some back pains and hand pains as well. Those areas seem to get worse with physical activity. I had wanted to have her see Orthopedics about the shoulder. MRI and consult was ordered but she missed the appointments because she was hospitalized. Her breathing seems to be stable at this point. She is getting more frequent heartburn. She is already on omeprazole. In the past she had been on alendronate and could not remember whether bothered her stomach but it looks like she is having more reflux at present. [facility] Medical History (Updated 08/06/23 @ 16:57 by Randolph Layne MD) Dyspnea on exertion Bronchitis Hyperlipidemia Hypertension Polymyalgia rheumatica Surgical History Hx of cholecystectomy Hx of hysterectomy Family History Mother CHF (congestive heart failure) Social History Household Members: Spouse Housing: House Do you presently have visiting nurse or other home services: No Alcohol intake: current Alcohol intake frequency: holidays/special occasions only Patient Tobacco Use Status: Former Tobacco user Tobacco use type: Cigarette Cigarettes Per Day: 15 Years Smoked: 4 Substance Use Type: Marijuana service: No Current occupational status: retired Review of Systems Const Details: Low stamina. Negative for appetite change, weight change, fever, chills, malaise Eyes Details: Negative for vision change, dry eyes,headaches and dizziness ENT Details: Negative for hearing change, tinnitus, oral ulcer, nose bleeds and oral dryness. Card Details: Negative chest pain, edema and syncope Resp Details: She has a usual exertional dyspnea. Negative for, cough and wheezing GI Details: Frequent heartburn. Negative dysphagia, nausea, abdominal pain, bowel changes, diarrhea, constipation and bloody stool. Neuro Details: Negative for epilepsy, palsy, stroke, changes in speech, tingling and weakness Psych Details: Negative for anxiety, depression and stress Endo Details: Negative for polyuria and polydypsia Syed/Lymph Details: Negative for excessive bruising or bleeding. Physical Exam Vital Signs: Last Vital Signs Temp 97.1 F 08/06/23 08:59 Pulse 85 08/06/23 08:59 BP 124/80 08/06/23 08:59 Pulse Ox 98 08/06/23 08:59 Oxygen Delivery Method Room Air 08/06/23 08:59 BMI result Body Mass Index 32.6 APPEARANCE: Patient in no acute distress EYES no redness, pupils equal and reactive to light, eyelids normal. No temporal artery tenderness, redness or swelling. ABD: Normal bowel sounds, no organomegaly, masses or tenderness. EXTREMITIES: No edema, no calf tenderness, normal peripheral pulses. JOINT EXAM: ? ? Cervical Spine:.? Mild discomfort with extremes of normal range of motion but no tenderness. Thoracic Spine:.? No scoliosis.? No tenderness on palpation. Lumbar Spine:.? Alignment normal.? She has mild lumbar pain with flexion at 75 degrees.? There is no paraspinal muscle or vertebral tenderness.? Straight leg r aising is negative.? There is no leg weakness. Chest Wall:.? No tenderness, swelling, increased warmth or erythema. Hands:.? There is moderate bony enlargement and mild to moderate tenderness at the base of the thumbs.? There is slight tenderness across the MCP joints without swelling. There is some mild bony enlargement and tenderness at the PIP joints. There is no flexor tendon triggering, thenar atrophy or sensory loss. Wrists:.? Normal pain-free range of motion without tenderness, swelling, increased warmth or erythema. Elbows:. Normal pain-free range of motion without tenderness, swelling, increased warmth or erythema. Shoulders:? Right:? Moderate pain with abduction at 75 degrees or with more than 10 degrees of internal or external rotation.? The pain is felt in the deltoid and top of the shoulder.? There is no axillary or supraclavicular adenopathy.? [id number] anterior and posterior tenderness.? No swelling.? Questionable abductor weakness. Left:?? Full range of motion with mild discomfort at the extremes.. No tenderness, weakness, swelling, increased warmth or erythema. Hips:? Right: Slight groin and mild buttock pain with extremes of normal internal or external rotation.? Left:? Full range of motion without pain. Hip bursa:.? Mild left and right trochanteric tenderness. Knees:? Right:?? Normal pain-free range of motion with mild patellofemoral crepitus and slight medial compartment tenderness but no effusion, soft tissue swelling, increased warmth or erythema.? Left:? Mild pain with extremes of normal extension.? There is mild patellofemoral crepitus and slight medial compartment tenderness without effusion, redness or warmth.? There is also some tenderness distal to the medial joint margin consistent with some answering bursitis.? No redness or swelling. Ankles:.? Normal pain-free range of motion without tenderness, swelling, increased warmth or erythema. Feet:.? There is mild bony enlargement and hallux valgus deformity at the 1st MTP bilaterally.? She has some degree of pes planus deformity.? Those joints have some mild tenderness but elsewhere in the foot the joints have normal pain- free range of motion without tenderness, swelling, increased warmth or erythema. Tender points:? Mild tenderness to digital palpation at the? trapezius, second rib, lateral epicondyle, knees, greater trochanter? area bilaterally. Results Reviewed Results Reviewed: Laboratory Tests 04/03/23 06/02/23 06/02/23 13:47 11:25 11:25 WBC 12.6 H Hgb 14.3 ESR 20 Creatinine 0.80 C-Reactive Protein 0.23 TSH 2.62 Assessment & Plan Assessment & Plan (1) Osteoarthritis of hands, bilateral: Code(s): M19.041 - Primary osteoarthritis, right hand; M19.042 - Primary osteoarthritis, left hand (2) Osteoarthritis of knees, bilateral: Code(s): M17.0 - Bilateral primary osteoarthritis of knee (3) Osteoporosis: Comment: Jul 2010 BMD T scores -1.9 in LS spine and hip. Alendronate ? Caused hip pain and stomach ache? 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 We will see if we can reduce her prednisone to 7.5 mg daily using the 2.5 mg pills. We will check acute phase reactants today. She is getting more heartburn which could be related to the use of the alendronate so I think we will stop it. We will check a bone density to see if she has had any improvement since her last DEXA. She may need to go on some Reclast at this point to avoid the side effect of the heartburn. I will also will check a vitamin-D level. I will get back to her with the results of her studies. Otherwise a follow-up in 3 months seems reasonable. Orders: Orders XR DEXA axial skeleton Today M81.0 - Age-related osteoporosis without current pa thological fracture C Reactive Protein Today M35.3 - Polymyalgia rheumatica Vitamin D 25-OH (D2 and D3) Today M81.0 - Age-related osteoporosis without current pathological fracture Erythrocyte Sedimentation Rate Today M35.3 - Polymyalgia rheumatica Referrals Orthopedics Referral M75.81 - Other shoulder lesions, right shoulder Medications: New prednisone 7.5 mg (3 x 2.5 mg) PO DAILY 90 tabs 3RF M35.3 - Polymyalgia rheumatica Coding Level of Care Code Est Pt Level 4 (74963) Diagnoses Osteoarthritis of hands, bilateral M19.041; M19.042 Osteoarthritis of knees, bilateral M17.0 Osteoporosis 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
[2023-08-06 08:59] VITALS: BP 124/80; PULSE 85; TEMP 36.2; O2SAT 98; BMI 32.6
== END 2023-08-06 09:35 | disposition home or self-care (01) ==
PROVIDERS: PCP Internal Medicine; Visit Provider Internal Medicine Rheumatology
DX: M19.041 Primary osteoarthritis, right hand (principal); M19.042 Primary osteoarthritis, left hand; M17.0 Bilateral primary osteoarthritis of knee; M81.0 Age-related osteoporosis without current pathological fracture; Z79.52 Long term (current) use of systemic steroids; M75.81 Other shoulder lesions, right shoulder; M35.3 Polymyalgia rheumatica
CPT/HCPCS: 99214

== ENCOUNTER → 2023-08-06 08:56 | Outpatient (BNVA) | payer MEDICARE, SELFPAY | PROVIDERS: PCP Internal Medicine; Visit Provider Internal Medicine Rheumatology | DX: M19.041 Primary osteoarthritis, right hand (principal); M19.042 Primary osteoarthritis, left hand; M17.0 Bilateral primary osteoarthritis of knee; M81.0 Age-related osteoporosis without current pathological fracture; M75.81 Other shoulder lesions, right shoulder; M35.3 Polymyalgia rheumatica; Z79.52 Long term (current) use of systemic steroids | CPT/HCPCS: 99212 ==

== ENCOUNTER 2023-08-06 09:40 | Outpatient (REF) | payer MEDICARE, SELFPAY ==
[2023-08-06 11:36] LABS: Erythrocyte Sedimentation Rate 23 MM/HR (0-20)
[2023-08-10 16:59] LABS: Vitamin D 25-OH, D2 <4 ng/mL; Vitamin D 25-OH, D3 36 ng/mL; Vitamin D 25-OH, Total 36 ng/mL (30-100)
== END 2023-08-06 09:41 | disposition home or self-care (01) ==
LOC: HO.10HDL 09:40
PROVIDERS: Visit Provider Internal Medicine Rheumatology
DX: M35.3 Polymyalgia rheumatica (principal); M81.0 Age-related osteoporosis without current pathological fracture
CPT/HCPCS: 36415; 82306; 85652; 86140

== ENCOUNTER 2023-08-13 10:07 | Outpatient (AMB) | payer MEDICARE, SELFPAY ==
--- NOTE | 2023-08-13 10:26 | MHC.OFFVIS ---
Intake Intake Visit Reasons: OV- RT shoulder lesions Intake Note: This is an 83 year old female who presents for her right shoulder pain. She states this has been happening for about 3 years, she had a fall at that time. She had a cortisone shot back in April with Dr. Layne. She would like an injection today. She states heat helps a bit but cold therapy does not. She has tried Tylenol and anti-inflammatory medicines which gave her minimal relief. Allergies naproxen [NAPROXEN] Allergy (Intermediate, Verified 08/13/23 10:31) BLISTERS IN MOUTH Sulfa (Sulfonamide Antibiotics) [SULFA (SULFONAMIDE ANTIBIOTICS)] Allergy (Intermediate, Verified 08/13/23 10:31) BLISTERS ON TONGUE Medication List - Last Reconciled 08/13/23 by Amada Howard RN acetaminophen ER (Mapap Arthritis Pain) 1 tab PO Q8H PRN albuterol sulfate 90 mcg/actuation (ProAir HFA) 2 puffs inhalation Q6H PRN cholecalciferol (vitamin D3) (Vitamin D3) 25 mcg PO DAILY fexofenadine 180 mg PO DAILY fluticasone propionate 50 mcg/actuation (Allergy Relief (fluticasone)) 1 spray intranasal DAILY folic acid 1 mg PO DAILY hydrochlorothiazide 25 mg PO DAILY levothyroxine 25 mcg PO DAILY magnesium oxide 400 mg PO DAILY metoprolol tartrate 12.5 mg (1/2 x 25 mg) PO BID omeprazole 20 mg PO DAILY@0630 polyvinyl alcohol 1.4% (Artificial Tears (polyvinyl alcohol)) 2 drps ophthalmic (eye) Q4H PRN potassium chloride ER 10 mEq PO DAILY prednisone 7.5 mg (3 x 2.5 mg) PO DAILY sertraline 25 mg PO DAILY simvastatin 20 mg PO DAILY [facility] Medical History (Updated 08/13/23 @ 11:09 by Jose Morales MD) Dyspnea on exertion Bronchitis Hyperlipidemia Hypertension Polymyalgia rheumatica Surgical History Hx of cholecystectomy Hx of hysterectomy Family History Mother CHF (congestive heart failure) Social History Household Members: Spouse Housing: House Do you presently have visiting nurse or other home services: No Alcohol intake: current Alcohol intake frequency: holidays/special occasions only Patient Tobacco Use Status: Former Tobacco user Tobacco use type: Cigarette Cigarettes Per Day: 15 Years Smoked: 4 Substance Use Type: Marijuana service: No Current occupational status: retired Physical Exam Const Other: Well-nourished well-developed very friendly female awake alert and oriented x3 in no acute distress Extrem Other: Bilateral upper extremity examination shows good capillary refill, no skin lesions noted, normal sensation light touch Right shoulder examination shows decreased range of motion when compared to her left shoulder, 4/5 strength with supraspinatus testing, positive impingement signs, tenderness over her acromioclavicular joint, no instability Office Procedures Joint Injection/Drain Joint Injection/Drain Primary Site: right shoulder Prep: site was prepped using aseptic technique Injected: 40 mg of, Kenalog and 1% plain lidocaine Procedure: The patient tolerated the procedure well Coding 35067 - Large joint Procedure code (CPT) selection complete Results Reviewed Results Reviewed: 08/13/23 10:52 Lidocaine HCl 1 % [Xylocaine 1 %] 2 ml .ROUTE .STK-MED ONE Triamcinolone Acetonide [Kenalog-40] 40 mg .ROUTE .STK-MED ONE X-rays of the patient's right shoulder shows severe acromioclavicular joint narrowing, a type 2 acromion, possible avascular necrosis of her humeral head, no acute bony abnormalities Assessment & Plan Assessment & Plan (1) Impingement of right shoulder: Code(s): M25.811 - Other specified joint disorders, right shoulder Plan: Ms. Ramírez presents with right shoulder pain due to impingement syndrome, acromioclavicular joint arthritis, possible rotator cuff tearing as well as possible avascular necrosis of her humeral head. I had a lengthy discussed Spear the treatment options. She wishes to hold off on surgery for as long as possible. I agree with this plan. The risks and benefits of a right shoulder cortisone injection were discussed at length with the patient. The patient wished to proceed. She tolerated the injection well. She will continue with her home stretching program to prevent further stiffness. She will follow up with me on an as-needed basis should her symptoms not plateau at an unacceptable level over the next few months. Feel free to call me at any time should questions regarding her orthopedic management arise. Thank you very much for asking me to see this very friendly patient. I spent 22 minutes in reviewing the patient's records and imaging studies, seeing the patient and documenting in the medical record. Orders: Orders AMB Joint Injection/Aspiration Today M25.811 - Other specified joint disorders, right shoulder Coding Level of Care Code New Pt Level 2 (93261) Diagnoses Impingement of right shoulder M25.811 CPT Codes Coding - 59663 Large joint: 08393 - Large joint ([id number])
== END 2023-08-13 11:09 | disposition home or self-care (01) ==
PROVIDERS: PCP Internal Medicine; Visit Provider Orthopaedic Surgery
DX: M25.811 Other specified joint disorders, right shoulder (principal)
CPT/HCPCS: 20610; 99204

== ENCOUNTER → 2023-08-13 10:07 | Outpatient (BNVA) | payer MEDICARE, SELFPAY | PROVIDERS: PCP Internal Medicine; Visit Provider Orthopaedic Surgery | DX: M25.811 Other specified joint disorders, right shoulder (principal); M19.011 Primary osteoarthritis, right shoulder | CPT/HCPCS: 20610; 99202; J3301 ==

== ENCOUNTER 2023-08-15 10:36 | Outpatient (REF) | payer MEDICARE, SELFPAY ==
--- NOTE | ~2023-08-15 | MM_ITS ---
EXAMINATION: BONE DENSITOMETRY CLINICAL INDICATION: Age-related osteoporosis without current pathological fracture. COMPARISON: Baseline BD dated 11/17/2020. TECHNIQUE: Using a [employer]zu DXA System (software version: 13.1) manufactured by [employer], dual-energy x-ray absorptiometry was performed of the lumbar spine and left hip. The images are of good technical quality. Summary results are attached. FINDINGS: LEFT FEMUR, NECK: Current: BMD 0.705 g/cm2, Z-score -0.4, T-score -2.4, osteopenia. Baseline: BMD 0.691 g/cm2. LEFT FEMUR, TOTAL: Current: BMD 0.834 g/cm2, Z-score 0.5, T-score -1.4, osteopenia, 0.5% decrease from baseline (<5% change is not significant). Baseline: BMD 0.838 g/cm2. AP SPINE L1-L3 (excluding L4): The data of L1-L4 has been changed to exclude the L4 vertebral body, because degenerative sclerosis at this level may cause overestimation of lumbar spine density. Current: BMD 0.988 g/cm2, Z-score 0.0, T-score -1.5, osteopenia, 0.9% increase from baseline (<5% change is not significant). Baseline: BMD 0.979 g/cm2. IDENTIFIED RISK FACTORS: Rheumatoid arthritis, recurrent falls, low calcium intake, history of fracture (adult). Early menopause, secondary osteoporosis, glucocorticoids, thiazide, hysterectomy, bilateral oophorectomy. HISTORY OF FRACTURE: Shoulder. MEDICATIONS: Calcium supplements or multivitamin, vitamin D, bisphosphonates, ERT/SERMS. MM/XR DEXA axial skeleton IMPRESSION: 1. DIAGNOSIS: Osteopenia based on the lowest T-score value of -2.4 in the femoral neck applying World Health Organization criteria. 2. 10-YEAR FRACTURE RISK PREDICTION, FRAX: Not performed in this patient on estrogen or bone building treatments. 3. Treatment Recommendations: NOF guidelines recommend consideration for treatment in postmenopausal women and men age 50 and older presenting with the following: -A hip or vertebral (clinical or morphometric) fracture. -T-score less than or equal to -2.5 at the femoral neck or spine after appropriate evaluation to exclude secondary causes. -Low bone mass at the hip or spine and a 10-year fracture probability by FRAX of greater than or equal to 3% for hip fracture or greater than or equal to 20% for major osteoporotic fracture based on the [place] adapted WHO algorithm. 4. Other Recommendations: All treatment decisions require clinical judgment and consideration of individual patient factors, including patient preferences, comorbidities, previous drug use, risk factors not captured in the FRAX model (e.g. frailty, falls, vitamin D deficiency, increased bone turnover, interval significant decline in bone density) and possible under or overestimation of fracture risk by FRAX. Additional medical evaluation for secondary cause of low bone mineral density may be appropriate. FUTURE SCAN RECOMMENDATION: People with diagnosed cases of osteoporosis or at high risk for fracture should have regular bone mineral density tests. For patients eligible for Medicare, routine testing is allowed once every 2 years. The testing frequency can be increased to one year for patients who have rapidly progressing disease, those who are receiving or discontinuing medical therapy to restore bone mass, or have additional risk factors.
== END 2023-08-15 10:37 | disposition home or self-care (01) ==
LOC: HO.MAMMO 10:36
PROVIDERS: PCP Internal Medicine; Visit Provider Internal Medicine Rheumatology
DX: Z13.820 Encounter for screening for osteoporosis (principal); M81.0 Age-related osteoporosis without current pathological fracture; Z78.0 Asymptomatic menopausal state
CPT/HCPCS: 77080

== ENCOUNTER 2023-11-19 10:33 | Inpatient (IN) | payer MEDICARE, SELFPAY ==
[2023-11-19] VITALS (11 sets, daily range): BP systolic 117–145; BP diastolic 43–71; PULSE 62–100; RESP 18–24; TEMP 36–39.2; O2SAT 94–98; BMI 39.2
--- NOTE | ~2023-11-19 | CT_ITS ---
EXAMINATION: CT HIP WITHOUT CONTRAST, RIGHT CLINICAL INFORMATION: Fall. Right hip pain. COMPARISON: Radiographs from the same date. TECHNIQUE: Multidetector volumetric imaging was obtained through the right hip without contrast material. Multiplanar reformatted images were submitted in coronal and sagittal planes. This CT examination was performed using dose optimization techniques as appropriate, variously including the following: *Automated exposure control *Adjustment of mA and/or kV according to patient size (this includes techniques or standardized protocols for targeted exams where dose is matched to indication/reason for exam; i.e. extremities or head) *Use of iterative reconstruction technique DLP: 555 mGy-cm FINDINGS: No acute fracture or malalignment at the right hip. Bones are osteopenic. The acute cortical angle at the right femoral head-neck junction is produced by the adjacent osteophytes. There is mild to moderate osteoarthritis in the right hip with nonuniform joint space narrowing and marginal osteophytes as well as foci of subchondral cystic change. Moderate to severe osteoarthritis is present at the pubic symphysis. Imaged portions of the innominate bones are intact. No fractures of the pubic rami are identified. SI joints are not included. Enthesopathic spurring is present at the right greater trochanter. There is marked fatty atrophy of the right gluteus minimus muscle, most consistent with a chronic tendon tear. Musculature is otherwise unremarkable. Imaged intrapelvic soft tissues are unremarkable. No adenopathy. Calcific atherosclerosis is present in the external iliac, common femoral, and superficial femoral arteries. CT/CT hip RT wo IV con IMPRESSION: 1. No acute fracture or malalignment at the right hip. 2. Mild to moderate osteoarthritis in the right hip. 3. Moderate to severe osteoarthritis at the pubic symphysis. 4. 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
--- NOTE | ~2023-11-19 | CT_ITS ---
EXAMINATION: CT HEAD WITHOUT CONTRAST CT CERVICAL SPINE WITHOUT CONTRAST CLINICAL INFORMATION: Head trauma. Neck trauma. COMPARISON: CT of chest November 19, 2023, January 27, 2022, December 07, 2022 TECHNIQUE: Imaging was performed from the skull base to vertex without intravenous administration of contrast. In addition, helical noncontrast CT imaging was acquired through the cervical spine and source images were reviewed along with axial reconstructions and sagittal and coronal MPRs. [This CT examination was performed using dose optimization techniques as appropriate, variously including the following: *Automated exposure control *Adjustment of mA and/or kV according to patient size (this includes techniques or standardized protocols for targeted exams where dose is matched to indication/reason for exam; i.e. extremities or head) *Use of iterative reconstruction technique] DLP: 1039 mGy-cm FINDINGS: HEAD: No intracranial mass, hemorrhage, or midline shift is visualized. There is generalized global volume loss. There is moderate prominence of the ventricles and the sulci . There is moderate hypodensity of the periventricular white matter due to chronic small vessel ischemic disease. There are vascular calcifications of the internal carotid arteries bilaterally. No extra-axial collections are identified. The paranasal sinuses and mastoid air cells are well aerated. CERVICAL SPINE: There is no evidence of acute cervical spine fracture. Vertebral bodies remain normal in height. Cervical vertebrae have normal alignment. There is multilevel degenerative spondylosis of the cervical spine with disc height narrowing and endplate spurs and facet joint arthrosis No pre- or paravertebral soft tissue abnormality is identified. Postsurgical changes at left lung apex are noted. CT/CT cervical spine wo IV con IMPRESSION: 1. No acute intracranial pathology. 2. No CT evidence of acute cervical spine fracture or traumatic subluxation
--- NOTE | ~2023-11-19 | XR_ITS ---
EXAMINATION: XR HIP, RIGHT CLINICAL INFORMATION: Pain after falling COMPARISON: None available. TECHNIQUE: Two views of the right hip. FINDINGS: There is slight foreshortening of the right femoral neck in the subcapital region. A subtle fracture here cannot be excluded and I would therefore recommend thin section CT. Pelvis and left hip intact. There is degenerative change in the lower lumbar spine. XR/XR hip RT min 2V IMPRESSION: Query subtle impaction fracture right femoral neck subcapital region. Recommend CT.
--- NOTE | ~2023-11-19 | CT_ITS ---
EXAMINATION: CT ANGIOGRAM OF THE CHEST WITH AND WITHOUT CONTRAST (CT PULMONARY ANGIOGRAM FOR PE) CLINICAL INFORMATION: Reason for Exam dyspnea, syncope COMPARISON: Previous chest CTA November 2022 and chest x-ray TECHNIQUE: Prior to contrast administration, noncontrast localization images were obtained. Subsequently, multidetector volumetric imaging was performed from the thoracic inlet to below the diaphragms following the administration of 65 mL Omnipaque 350 intravenous contrast. No contrast reaction reported Sagittal, coronal, and MIP oblique sagittal reformatted images were obtained on the CT workstation, uploaded to PACS, and reviewed. This CT examination was performed using dose optimization techniques as appropriate, variously including the following: *Automated exposure control *Adjustment of mA and/or kV according to patient size (this includes techniques or standardized protocols for targeted exams where dose is matched to indication/reason for exam; i.e. extremities or head) *Use of iterative reconstruction technique Total exam dose-length product 204 mGy-cm FINDINGS: QUALITY OF STUDY/CONTRAST BOLUS: Satisfactory. PULMONARY ARTERIES: No pulmonary emboli. THORACIC AORTA: No aneurysm. LUNG: Biapical pleural parenchymal scarring. Mild emphysema. PLEURA: No pleural effusion or pneumothorax. MEDIASTINUM: Normal heart size. No pericardial effusion. No hilar or mediastinal lymphadenopathy. No evidence of septal bowing or right heart strain. CORONARY ARTERY CALCIFICATION: Mild CHEST WALL/AXILLA: No axillary or internal mammary lymphadenopathy. OSSEOUS STRUCTURES: Old left clavicle fracture. Old healing lateral lateral fractures. No acute fracture. Degenerative changes of the spine. UPPER ABDOMEN: Stable low-attenuation regions probably representing cysts. No reflux of contrast into the hepatic veins to suggest elevated right heart pressures. CT/CT angio chest PE protocol IMPRESSION: Emphysema. No evidence for acute disease in chest. VTE: negative
--- NOTE | 2023-11-19 10:52 | ECG_ITS ---
Test Reason : FALL Blood Pressure : / mmHG Vent. Rate : 085 BPM Atrial Rate : 085 BPM P-R Int : 168 ms QRS Dur : 070 ms QT Int : 356 ms P-R-T Axes : 063 005 024 degrees QTc Int : 423 ms Normal sinus rhythm with sinus arrhythmia ST depression inferior and anterolateral leads Abnormal ECG When compared with ECG of 07-DEC-2022 14:34, Premature ventricular complexes are no longer Present ST depression more prominent Referred By: Veronika Hogan Electronically Signed By:KEON SHARIF
--- NOTE | 2023-11-19 11:06 | ED_ITS ---
HPI - Weakness General Chief complaint: Fall Stated complaint: WEAK,DIZZY,FALL,NO MEMORY OF FALL PER EMS Time Seen by Provider: 11/19/23 10:43 Source: patient Mode of arrival: EMS Limitations: no limitations History of Present Illness HPI Narrative: 83 yo female PMH of bronchitis, PAF not on thinners, CAD, PMR, depression, FRANCISCO, chronic prednisone use, asthma remembers going to bed then woke up on bathroom floor without any idea of what happened. found her this AM. She feels short of breath has R hip pain and neck pain. She is alert and oriented x 3. She states she has had some loose stools and cough over the past couple of days. MD Complaint: generalized weakness (found on floor) Onset (ago): unknown Duration: constant Location: generalized Migration: none Severity: moderate Relieving factors: none Exacerbating factors: movement Context: recent illness Associated symptoms: loss of appetite and other (loose stools, cough) Related Data Home Medications Medication Instructions Recorded Confirmed fexofenadine 180 mg tablet 180 mg PO DAILY 04/13/21 08/13/23 fluticasone propionate 50 1 spray intranasal DAILY 04/13/21 08/13/23 mcg/actuation nasal spray,suspension (Allergy Relief (fluticasone)) omeprazole 20 mg capsule,delayed 20 mg PO DAILY@0630 04/13/21 08/13/23 release simvastatin 20 mg tablet 20 mg PO DAILY 04/13/21 08/13/23 hydrochlorothiazide 25 mg tablet 25 mg PO DAILY 04/09/22 08/13/23 folic acid 1 mg tablet 1 mg PO DAILY 11/28/22 08/13/23 acetaminophen 650 mg 1 tab PO Q8H PRN pain 12/07/22 08/13/23 tablet,extended release (Mapap Arthritis Pain) cholecalciferol (vitamin D3) 25 25 mcg PO DAILY 12/07/22 08/13/23 mcg (1,000 unit) tablet (Vitamin D3) magnesium oxide 400 mg (241.3 mg 400 mg PO DAILY 12/07/22 08/13/23 magnesium) tablet levothyroxine 25 mcg tablet 25 mcg PO DAILY 03/31/23 08/13/23 potassium chloride 10 mEq 10 meq PO DAILY 03/31/23 08/13/23 tablet,extended release sertraline 25 mg tablet 25 mg PO DAILY 08/06/23 08/13/23 Previous Rx's Medication Instructions Recorded albuterol sulfate 90 mcg/actuation 2 puff inhalation Q6H PRN 12/11/22 aerosol inhaler (ProAir HFA) Shortness Of Breath Or Wheezing #8.5 grams metoprolol tartrate 25 mg tablet 12.5 mg (1/2 x 25 mg) PO BID #30 12/11/22 tabs polyvinyl alcohol 1.4 % eye drops 2 drp ophthalmic (eye) Q4H PRN dry 12/11/22 (Artificial Tears (polyvinyl eye #15 mL alcohol)) prednisone 2.5 mg tablet 7.5 mg (3 x 2.5 mg) PO DAILY #90 08/06/23 tabs Allergies Allergy/AdvReac Type Severity Reaction Status Date / Time naproxen [NAPROXEN] Allergy Intermediate BLISTERS Verified 08/13/23 10:31 IN MOUTH Sulfa (Sulfonamide Allergy Intermediate BLISTERS Verified 08/13/23 10:31 Antibiotics) ON TONGUE [SULFA (SULFONAMIDE ANTIBIOTICS)] Review of Systems 2 Review of Systems: Constitutional : No Fever, pos Chills ENT/Mouth : No Hoarseness, No sore throat, No Rhinorrhea Eyes: No Redness, No Discharge, No Vision Changes Cardiovascular : No Chest Pain, positive SOB, no Dyspnea on Exertion, No Edema Respiratory : positive Cough, No Sputum, positive Wheezing, Gastrointestinal : No Nausea, No Vomiting, No Diarrhea, No abdominal Pain Genitourinary : No Dysuria, No Hematuria Musculoskeletal : pos joint pain, No Myalgias Skin : No rash Neuro : No Weakness, No Numbness, No Headache Psych : No anxiety, depression Heme/Lymph: No Bruising, No Bleeding Endocrine : No Polyuria, No Polydipsia All other systems reviewed and are negative [facility] Past Medical History Attestation statement: The following information was validated with the patient. Source: old records reviewed Medical History Dyspnea on exertion Bronchitis Hyperlipidemia Hypertension Polymyalgia rheumatica Surgical History Hx of cholecystectomy Hx of hysterectomy Family History Family History Mother CHF (congestive heart failure) Social History Social History Household Members: Spouse Housing: House Do you presently have visiting nurse or other home services: No Alcohol intake: current Alcohol intake frequency: holidays/special occasions only Patient Tobacco Use Status: Former Tobacco user Tobacco use type: Cigarette Cigarettes Per Day: 15 Years Smoked: 4 Substance Use Type: Marijuana service: No Current occupational status: retired Physical Exam 2 Vital Signs: Vital Signs: Last Vital Signs Temp 100.5 F H 11/19/23 13:12 Pulse 84 11/19/23 14:09 Resp 24 H 11/19/23 14:09 BP 117/58 L 11/19/23 14:09 Pulse Ox 96 11/19/23 14:09 O2 Del Method Room Air 11/19/23 14:09 O2 Flow Rate 2 11/19/23 13:12 BMI result Body Mass Index 39.2 Appearance: Alert. Oriented X3. No acute distress. Eyes: Pupils equal, round and reactive to light. ENT: Pharynx midly dry MM , atraumatic Neck: collar in place mild posterior ttp no step offs CVS: Normal heart rate and rhythm. Pulses normal. Respiratory: No respiratory distress. Breath sounds diminished in both bases faint wheezes heard Abdomen: Soft and nontender. Skin: Skin warm and dry. Normal skin color. Normal skin turgor. Extremities: No lower extremity edema. R hip mild ttp Neuro: Oriented X 3. No motor deficit. No sensory deficit. Medications Administered Generic Name Dose Route Start Last Admin Trade Name Freq PRN Reason Stop Dose Admin Potassium Chloride 10 meq in 100 mls @ 100 mls/hr 11/19/23 14:15 11/19/23 15:23 Potassium Chloride/H20 IV 11/19/23 18:14 100 mls/hr Q1H NADIYA Administration Discontinued Medications Generic Name Dose Route Start Last Admin Trade Name Freq PRN Reason Stop Dose Admin Acetaminophen 650 mg 11/19/23 11:09 11/19/23 11:47 Acetaminophen 325 Mg Tablet PO 11/19/23 11:10 650 mg ONCE ONE Administration Ceftriaxone Sodium 1 gm/ 50 mls @ 100 mls/hr 11/19/23 11:09 11/19/23 12:16 Sodium Chloride IV 11/19/23 11:38 Infused ONCE ONE Infusion Sodium Chloride 1,000 mls @ 999 mls/hr 11/19/23 11:15 11/19/23 12:36 Ns IV 11/19/23 12:15 Infused .Q1H1M NADIYA Infusion Magnesium Sulfate 2 gm in 50 mls @ 25 mls/hr 11/19/23 14:01 11/19/23 15:28 Magnesium Sulfate/H2o IV 11/19/23 16:00 25 mls/hr ONCE ONE Administration Methylprednisolone Sodium Succinate 125 mg 11/19/23 11:15 11/19/23 11:44 Methylprednisolone Sod Succ 125 Mg/2 Ml Vial IVPUSH 11/19/23 11:16 125 mg ONCE ONE Administration Potassium Chloride 20 meq 11/19/23 14:02 11/19/23 15:49 Potassium Chloride Packet 20 Meq Packet PO 11/19/23 14:03 20 meq ONCE ONE Administration Medical Decision Making Medical Decision Making [facility] Narrative: 83 yo female PMH of bronchitis, PAF not on thinners, CAD, PMR, depression, FRANCISCO, chronic prednisone use, asthma here with c/o being found down unknown downtime she is alert and oriented x 3, no focal deficits, febrile she is in sepsis protocol labs, UA, CT head/cspine CTA PE and EKG/trop. IVF started empiric ceftriaxone given cough - viral panel. Possible trauma vs infectious etiology. Planned admit. on chronic steriods - IV solumedrol ordered given fevers. Differential Diagnosis Differential Diagnoses: The differential diagnosis associated with the presentation includes pneumonia, UTI, syncope, trauma, dehydration, viral syndrome Admission/Observation Consideration of admission/observation: Escalation of care including admission/observation considered admit for further management lyte replacement Consult Healthcare Provider Management of the patient was discussed with: Hospitalist (will admit) Lab Data [facility] Lab Attestation statement: I reviewed the patient's lab results. 11/19/23 11:28 11/19/23 13:14 Labs: Lab Results 11/19/23 11/19/23 11/19/23 Range/Units 11:28 11:29 11:33 WBC 13.7 H (4.8-10.8) X10*3/uL RBC 4.77 (4.20-5.50) X10*6/uL Hgb 14.9 (12.0-16.0) g/dl Hct 43.3 (37.0-47.0) % MCV 90.8 (80.0-98.0) fL MCH 31.2 (27.0-33.0) pg MCHC 34.4 (31.0-35.0) g/dl RDW 13.7 (11.0-16.0) % Plt Count 236 (160-400) X10*3/uL MPV 10.5 (9.4-12.3) fL Immature Gran % (Auto) 0.9 H (0.0-0.4) % Neut % (Auto) 86.5 H (45-73) % Lymph % (Auto) 5.4 L (20-40) % [place] % (Auto) 6.8 (2-11) % Eos % (Auto) 0.1 (0-4) % Baso % (Auto) 0.3 (0-2) % Lymph # (Auto) 0.7 L (1.2-4.9) X10*3/uL [place] # (Auto) 0.9 (0.1-1.2) X10*3/uL Eos # (Auto) 0.0 (0.0-0.4) X10*3/uL Baso # (Auto) 0.0 (0.0-0.2) X10*3/uL Abs Immat Gran (auto) 0.12 H (0.00-0.03) X10*3/uL Absolute Neuts (auto) 11.9 H (2.0-8.3) x10*3/uL Absolute Nucleated RBC 0.000 (0.0-0.012) X10*3/uL Nucleated RBC % (auto) 0.0 (0.0-0.2) /100WBC Hold Blue Top SEE NOTE VBG pH (7.32-7.43) VBG pCO2 mmHg VBG pO2 mmHg VBG HCO3 (22-26) mmol/L VBG O2 Saturation % VBG Base Excess mmol/L Sodium (135-145) mmol/L Potassium (3.3-5.1) mmol/L Chloride (96-108) mmol/L Carbon Dioxide (22-29) mmol/L Anion Gap (12-20) BUN (9-16) mg/dL Creatinine (0.5-1.4) mg/dL Estim Creat Clear Calc Estimated GFR Random Glucose (60-115) mg/dL Lactic Acid 1.6 (0.5-2.0) mmol/L Calcium (8.4-10.2) mg/dL Magnesium (1.6-2.6) mg/dL Total Bilirubin (0.0-1.0) mg/dL Direct Bilirubin (0.0-0.5) mg/dL AST (5-31) U/L ALT (0-31) U/L Alkaline Phosphatase (39-117) U/L Total Creatine Kinase (26-140) U/L Troponin I High Sens 12.0 (<3.5-17.0) ng/L B-Natriuretic Peptide 64 (<100) pg/mL Total Protein (6.5-8.0) g/dL Albumin (3.5-5.0) g/dL Lipase (8-78) U/L COVID-19 (MICHELLE) Positive A (Negative) COVID-19 Clin Com See Note Influenza Type A (AMINATA) Negative (Negative) Influenza Type B (AMINATA) Negative (Negative) Influenza A & B Note See Note 11/19/23 11/19/23 Range/Units 13:14 13:21 WBC (4.8-10.8) X10*3/uL RBC (4.20-5.50) X10*6/uL Hgb (12.0-16.0) g/dl Hct (37.0-47.0) % MCV (80.0-98.0) fL MCH (27.0-33.0) pg MCHC (31.0-35.0) g/dl RDW (11.0-16.0) % Plt Count (160-400) X10*3/uL MPV (9.4-12.3) fL Immature Gran % (Auto) (0.0-0.4) % Neut % (Auto) (45-73) % Lymph % (Auto) (20-40) % [place] % (Auto) (2-11) % Eos % (Auto) (0-4) % Baso % (Auto) (0-2) % Lymph # (Auto) (1.2-4.9) X10*3/uL [place] # (Auto) (0.1-1.2) X10*3/uL Eos # (Auto) (0.0-0.4) X10*3/uL Baso # (Auto) (0.0-0.2) X10*3/uL Abs Immat Gran (auto) (0.00-0.03) X10*3/uL Absolute Neuts (auto) (2.0-8.3) x10*3/uL Absolute Nucleated RBC (0.0-0.012) X10*3/uL Nucleated RBC % (auto) (0.0-0.2) /100WBC Hold Blue Top VBG pH 7.46 H (7.32-7.43) VBG pCO2 40 mmHg VBG pO2 125 mmHg VBG HCO3 28 H (22-26) mmol/L VBG O2 Saturation 100.0 % VBG Base Excess 4.7 mmol/L Sodium 139 (135-145) mmol/L Potassium 2.7 L* (3.3-5.1) mmol/L Chloride 103 (96-108) mmol/L Carbon Dioxide 28 (22-29) mmol/L Anion Gap 11 L (12-20) BUN 19 H (9-16) mg/dL Creatinine 0.68 (0.5-1.4) mg/dL Estim Creat Clear Calc 65.2 Estimated GFR > 60 Random Glucose 104 (60-115) mg/dL Lactic Acid (0.5-2.0) mmol/L Calcium 8.4 D (8.4-10.2) mg/dL Magnesium 1.4 L* (1.6-2.6) mg/dL Total Bilirubin 0.6 (0.0-1.0) mg/dL Direct Bilirubin 0.3 (0.0-0.5) mg/dL AST 19 (5-31) U/L ALT 20 (0-31) U/L Alkaline Phosphatase 42 (39-117) U/L Total Creatine Kinase 40 (26-140) U/L Troponin I High Sens (<3.5-17.0) ng/L B-Natriuretic Peptide (<100) pg/mL Total Protein 5.9 L (6.5-8.0) g/dL Albumin 3.3 L (3.5-5.0) g/dL Lipase 12 (8-78) U/L COVID-19 (MICHELLE) (Negative) COVID-19 Clin Com Influenza Type A (AMINATA) (Negative) Influenza Type B (AMINATA) (Negative) Influenza A & B Note Independent Interpretation I performed an independent interpretation of an: EKG, Plain X-Ray and CT Scan (no trauma no PE) Interpretation: Rate: 85 Rhythm: NSR Regina: normal Normal P waves. Normal DWIGHT. Normal QRS complex. ST T wave : no GORDO, diffuse nonspecific ST T wave changes subtle ST depressions in I and V5-V6 more pronounced from priors qTC: 423 prior studies: slight change The study has been interpreted contemporaneously by me. . Radiology Impression Discussion of test interpretation with radiology: I have reviewed the radiologist's reading. Independent Historian Clinical information obtained from an independent historian. History obtained from or confirmed by: Spouse and EMS External Record Review External record reviewed: Inpatient record Critical Care Time Critical Care Time Critical Care Time: Yes Total Critical Care Time: 60 Attestation: IV magnesium, IV potassium, discussion with spouse, trauma workup I attest to this time spent taking care of the patient Discharge Plan Discharge Clinical Impression: COVID-19, Hypomagnesemia, Hypokalemia Fever Qualifiers: Fever type: unspecified Qualified Code(s): R50.9 - Fever, unspecified Syncope Qualifiers: Syncope type: unspecified Qualified Code(s): R55 - Syncope and collapse Patient Disposition: Admitted As Inpatient
[2023-11-19] MEDS: cefTRIAXone sodium 1 GM in 0.9 % Sodium Chloride 50 ML IV (11:34)
[2023-11-19] MEDS: 0.9 % Sodium Chloride 1,000 ML 999 ML IV (11:34)
[2023-11-19] MEDS: methylPREDNISolone Sod Succ 125 MG/2 ML VIAL IVPUSH (11:44)
[2023-11-19] MEDS: Acetaminophen 325 MG TABLET 650 MG PO (11:47)
[2023-11-19 11:59] LABS: MANUAL DIFF FLAG NO
[2023-11-19 12:03] LABS: Basophils Percent Auto 0.3 % (0-2); Eosinophils Percent Auto 0.1 % (0-4); Hematocrit 43.3 % (37.0-47.0); Hemoglobin 14.9 g/dl (12.0-16.0); Imm Gran Abs Auto 0.12 X10*3/uL (0.00-0.03); Imm Gran Pct Auto 0.9 % (0.0-0.4); Lymphocytes Absolute Auto 0.7 X10*3/uL (1.2-4.9); Lymphocytes Percent Auto 5.4 % (20-40); Mean Corpuscular HGB Conc 34.4 g/dl (31.0-35.0); Mean Corpuscular Hemoglobin 31.2 pg (27.0-33.0); Mean Corpuscular Volume 90.8 fL (80.0-98.0); Mean Platelet Volume 10.5 fL (9.4-12.3); Monocytes Absolute Auto 0.9 X10*3/uL (0.1-1.2); Monocytes Percent Auto 6.8 % (2-11); Neutrophils Absolute Auto 11.9 x10*3/uL (2.0-8.3); Neutrophils Percent Auto 86.5 % (45-73); Platelet Count 236 X10*3/uL (160-400); Red Blood Count 4.77 X10*6/uL (4.20-5.50); Red Cell Distribution Width 13.7 % (11.0-16.0); White Blood Count 13.7 X10*3/uL (4.8-10.8)
[2023-11-19 12:13] LABS: Lactic Acid 1.6 mmol/L (0.5-2.0)
[2023-11-19 12:13] LABS: COVID-19 Test Positive (Negative); IDNOW Serial# 08D9AD1C
[2023-11-19 12:22] LABS: B Type Natriuretic Peptide 64 pg/mL (<100)
[2023-11-19 12:23] LABS: IDNOW Serial# 9DB6401D; Influenza A Negative (Negative); Influenza B2 Negative (Negative)
[2023-11-19 13:31] LABS: VBG Base Excess 4.7 mmol/L; VBG HCO3 28 mmol/L (22-26); VBG pCO2 40 mmHg; VBG pH 7.46 (7.32-7.43); VBG pO2 125 mmHg
[2023-11-19 13:35] LABS: Venous Blood Gas Refer to POC result
[2023-11-19 13:58] LABS: Alanine Aminotransferase 20 U/L (0-31); Albumin Level 3.3 g/dL (3.5-5.0); Alkaline Phosphatase 42 U/L (39-117); Anion Gap 11 (12-20); Aspartate Amino Transferase 19 U/L (5-31); Bilirubin Direct 0.3 mg/dL (0.0-0.5); Bilirubin Total 0.6 mg/dL (0.0-1.0); Blood Urea Nitrogen 19 mg/dL (9-16); Calcium 8.4 mg/dL (8.4-10.2); Carbon Dioxide 28 mmol/L (22-29); Chloride 103 mmol/L (96-108); Creatinine Clr Calc Pharmacy 65.2; Estimated Glomerular Filt Rate > 60; Glucose Random 104 mg/dL (60-115); Lipase 12 U/L (8-78); Magnesium 1.4 mg/dL (1.6-2.6); Potassium 2.7 mmol/L (3.3-5.1); Sodium 139 mmol/L (135-145); Total Protein 5.9 g/dL (6.5-8.0)
--- NOTE | 2023-11-19 14:47 | PC.NURSE ---
pt presents from home via EMS after an unwitnessed fall at home. pt was found on the bathroom floor by her . it is suspected that the fall occurred between 0000 and 0430. Pt does not recall falling, but does recall going to bed the previous night. Arrives c-collar. per pt she has not felt right for the last few days. pt denies headstrike, unsure of LOC, no thinners. pt complaining of right hip pain, XR ordered, pt to hace CT o Pt is UTD on vaccinations, no known sick contacts. 20G iv placed at 1115, labs obtained. Pt febrile at 102.6 rectally (APAP administered) pt was found to be covid positive. pt to have CT of head neck, and CTA. at bedside pt a&o x 3 at bedside, call summers within reach
[2023-11-19] MEDS: Potassium Chloride/H20 10 MEQ/100 ML PIGGYBACK 100 MEQ IV ×6 (15:23→23:31)
[2023-11-19] MEDS: Magnesium Sulfate/H2O 2 GM/50 ML PIGGYBACK IV (15:28)
[2023-11-19] MEDS: Potassium Chloride Packet 20 MEQ PACKET PO ×2 (15:49→19:48)
--- NOTE | 2023-11-19 16:40 | PHA.MEDREC ---
Pharmacy Consult ? Medication Reconciliation Pharmacy has completed the medication reconciliation. Patient had handwritten list that match claim history. Patient reported taking prednisone TID instead of 3 tablet once a day. Charlene Aguillon, [facility]
[2023-11-19 18:46] LABS: Procalcitonin 0.12 ng/mL
--- NOTE | 2023-11-19 19:11 | P.HPHOSP_ITS ---
History of Present Illness Date of Service: 11/19/23 Attending physician on admission: Briana Spear Chief Complaint: Fall at home, weakness Pt is a 83-year-old female with a PMH significant for?HLD, HTN, polymyalgia rheumatica, osteoarthritis, and hypothyroidism who presents to the ED after fall at home earlier this morning. Patient is accompanied by who helps supplement HPI. Apparently found patient on the bathroom floor at 04:30 this morning after an unknown period of down time. states pt was too weak to stand up and it took him 1 1/2 hours to move her to the bed. Patient herself does not remember going to the bathroom or events surrounding fall, but developed nonproductive cough yesterday morning and has been feeling weak, nauseous, and had reduced p.o. intake for the past couple of days. Chronic fatigue and myalgias around baseline. Chronic shortness of breath around baseline. Denies chest pain/pressure, palpitations. Denies fever, chills, abdominal pain. No vomiting or diarrhea. Denies headache, lightheadedness, dizziness. ? In the ED pt was febrile up to 102.6, tachycardic up to 99, tachypneic up to 24, and was soft BP as low as 117/58. Labs were significant for testing positive for COVID, leukocytosis 13.7, potassium 2.7, magnesium 1.4, total protein 5.9, and albumin 3.3. X-ray of hips with question of subtle impaction fracture of right femoral neck subcapital region. 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 CT of head found no acute intracranial pathology. And CT of cervical spine found no evidence of acute fracture or traumatic subluxation. CTA of chest found emphysema with no evidence of acute disease in the chest. EKG demonstrated normal sinus rhythm with sinus arrhythmia and nonspecific ST abnormality. Pt was treated with ceftriaxone, IVF, Solu-Medrol, acetaminophen, potassium chloride, and magnesium sulfate. Pt will be admitted to the hospital for treatment and further evaluation of acute hypoxic respiratory failure in the setting of COVID infection. Review of Systems 2 Review of Systems: Fall at home Nonproductive cough Weakness, fatigue, myalgias Chronic SOB Denies chest pain/pressure, palpitations No fever, chills, nausea, vomiting, abdominal pain PMFSH Medical History Dyspnea on exertion Bronchitis Hyperlipidemia Hypertension Polymyalgia rheumatica Family History Mother CHF (congestive heart failure) Surgical History Hx of cholecystectomy Hx of hysterectomy Social History Household Members: Spouse Housing: House Do you presently have visiting nurse or other home services: No Alcohol intake: current Alcohol intake frequency: holidays/special occasions only Patient Tobacco Use Status: Former Tobacco user Tobacco use type: Cigarette Cigarettes Per Day: 15 Years Smoked: 4 Smoked in Last 30 Days: No Use of substances other than those prescribed or required for medical reasons: No Substance Use Type: Marijuana Advance Directives: No service: No Current occupational status: retired [employer] Allergies Allergy/AdvReac Type Severity Reaction Status Date / Time naproxen [NAPROXEN] Allergy Intermediate BLISTERS Verified 08/13/23 10:31 IN MOUTH Sulfa (Sulfonamide Allergy Intermediate BLISTERS Verified 08/13/23 10:31 Antibiotics) ON TONGUE [SULFA (SULFONAMIDE ANTIBIOTICS)] Active Medications: Current Medications Potassium Chloride (Potassium Chloride/H20) 10 meq in 100 mls @ 100 mls/hr IV Q1H NADIYA Stop: 11/19/23 22:59 Home Medications Medication Instructions Recorded Confirmed Last Taken Type fexofenadine 180 mg tablet 180 mg PO DAILY 04/13/21 11/19/23 11/18/23 History fluticasone propionate 50 1 spray intranasal DAILY 04/13/21 11/19/23 11/18/23 History mcg/actuation nasal spray,suspension (Allergy Relief (fluticasone)) omeprazole 20 mg capsule,delayed 20 mg PO DAILY@0630 04/13/21 11/19/23 11/18/23 History release simvastatin 20 mg tablet 20 mg PO DAILY 04/13/21 11/19/23 11/18/23 History hydrochlorothiazide 25 mg tablet 25 mg PO DAILY 04/09/22 11/19/2311/18/24 History folic acid 1 mg tablet 1 mg PO DAILY 11/28/22 11/19/23 11/18/23 History acetaminophen 650 mg 1 tab PO Q8H PRN pain 12/07/22 11/19/23 Unknown History tablet,extended release (Mapap Arthritis Pain) cholecalciferol (vitamin D3) 25 25 mcg PO DAILY 12/07/22 11/19/23 11/18/23 History mcg (1,000 unit) tablet (Vitamin D3) magnesium oxide 400 mg (241.3 mg 400 mg PO DAILY 12/07/22 11/19/23 11/18/23 History magnesium) tablet levothyroxine 25 mcg tablet 25 mcg PO DAILY 03/31/23 11/19/23 11/18/23 History potassium chloride 10 mEq 10 meq PO DAILY 03/31/23 11/19/23 11/18/23 History tablet,extended release sertraline 25 mg tablet 25 mg PO DAILY 08/06/23 11/19/23 11/18/23 History prednisone 2.5 mg tablet 2.5 mg PO TID 11/19/23 11/19/23 11/18/23 History Physical Exam 2 Vital Signs and Narrative: Vital Signs: Last Vital Signs Temp 98.3 F 11/19/23 17:06 Pulse 80 11/19/23 17:06 Resp 18 11/19/23 17:06 BP 118/59 L 11/19/23 17:06 Pulse Ox 96 11/19/23 17:06 O2 Del Method Nasal Cannula 11/19/23 17:06 O2 Flow Rate 2 11/19/23 17:06 BMI result Body Mass Index 39.2 Constitutional: Alert, in no acute distress. Mental Status: Oriented to person, place and time. Eyes: Pupils are equal, round, and reactive to light. Ear, Nose, and Throat: Oropharynx clear, mucous membranes moist. Ears and nose without deformities. Trachea midline. Respiratory: Clear to auscultation bilaterally though diminished. No wheezing, rales, or rhonchi. Cardiovascular: S1, S2 regular. No murmurs, rubs, or gallops. Gastrointestinal: Abdomen soft, non-tender, non-distended. Normal bowel sounds. Neurologic: Cranial nerves II-XII are grossly intact bilaterally. No focal neurological deficits. Moves all extremities spontaneously. Skin: Warm, dry. Musculoskeletal: No cyanosis or clubbing. Extremities: No edema. Psychiatric: Normal mood and affect. Results Labs 11/19/23 11:28 11/19/23 13:14 Labs: Laboratory Results - last 24 hr 11/19/23 11/19/23 11/19/23 11:28 11:33 13:14 MCV 90.8 MCH 31.2 MCHC 34.4 RDW 13.7 Plt Count 236 MPV 10.5 Immature Gran % (Auto) 0.9 H Neut % (Auto) 86.5 H Lymph % (Auto) 5.4 L Latimer % (Auto) 6.8 Eos % (Auto) 0.1 Baso % (Auto) 0.3 Lymph # (Auto) 0.7 L Latimer # (Auto) 0.9 Eos # (Auto) 0.0 Baso # (Auto) 0.0 Abs Immat Gran (auto) 0.12 H Absolute Neuts (auto) 11.9 H Absolute Nucleated RBC 0.000 Nucleated RBC % (auto) 0.0 Hold Blue Top SEE NOTE VBG pH VBG pCO2 VBG pO2 VBG HCO3 VBG O2 Saturation VBG Base Excess Anion Gap 11 L Estim Creat Clear Calc 65.2 Estimated GFR > 60 Random Glucose 104 Lactic Acid 1.6 Calcium 8.4 D Magnesium 1.4 L* Total Bilirubin 0.6 Direct Bilirubin 0.3 AST 19 ALT 20 Alkaline Phosphatase 42 Total Creatine Kinase 40 B-Natriuretic Peptide 64 Total Protein 5.9 L Albumin 3.3 L Lipase 12 Procalcitonin 0.12 COVID-19 (MICHELLE) Positive A COVID-19 Clin Com See Note Influenza Type A (AMINATA) Negative Influenza Type B (AMINATA) Negative Influenza A & B Note See Note 11/19/23 13:21 MCV MCH MCHC RDW Plt Count MPV Immature Gran % (Auto) Neut % (Auto) Lymph % (Auto) Latimer % (Auto) Eos % (Auto) Baso % (Auto) Lymph # (Auto) Latimer # (Auto) Eos # (Auto) Baso # (Auto) Abs Immat Gran (auto) Absolute Neuts (auto) Absolute Nucleated RBC Nucleated RBC % (auto) Hold Blue Top VBG pH 7.46 H VBG pCO2 40 VBG pO2 125 VBG HCO3 28 H VBG O2 Saturation 100.0 VBG Base Excess 4.7 Anion Gap Estim Creat Clear Calc Estimated GFR Random Glucose Lactic Acid Calcium Magnesium Total Bilirubin Direct Bilirubin AST ALT Alkaline Phosphatase Total Creatine Kinase B-Natriuretic Peptide Total Protein Albumin Lipase Procalcitonin COVID-19 (MICHELLE) COVID-19 Clin Com Influenza Type A (AMINATA) Influenza Type B (AMINATA) Influenza A & B Note Imaging Radiologist's Impressions: Impressions Hip X-Ray 11/19/23 12:10 IMPRESSION: Query subtle impaction fracture right femoral neck subcapital region. Recommend CT. Head CT 11/19/23 15:19 IMPRESSION: 1. No acute intracranial pathology. 2. No CT evidence of acute cervical spine fracture or traumatic subluxation Cervical Spine CT 11/19/23 15:20 IMPRESSION: 1. No acute intracranial pathology. 2. No CT evidence of acute cervical spine fracture or traumatic subluxation Chest CTA 11/19/23 15:20 IMPRESSION: Emphysema. No evidence for acute disease in chest. VTE: negative Hip CT 11/19/23 15:21 IMPRESSION: 1. No acute fracture or malalignment at the right hip. 2. Mild to moderate osteoarthritis in the right hip. 3. Moderate to severe osteoarthritis at the pubic symphysis. 4. 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 Assessment and Plan (1) Syncope: Qualifiers: Syncope type: unspecified Qualified Code(s): R55 - Syncope and collapse Status: Acute (2) Hypokalemia: Status: Acute (3) Hypomagnesemia: Status: Acute (4) COVID-19: Status: Acute Plan Pt is a 83-year-old female with a PMH significant for?HLD, HTN, polymyalgia rheumatica, osteoarthritis, and hypothyroidism who presents to the ED after fall at home earlier this morning. Pt will be admitted to the hospital for treatment and further evaluation of acute hypoxic respiratory failure in the setting of COVID infection. Acute hypoxic respiratory failure in the setting of COVID infection Patient desatting as low as 84% on RA; patient not on supplemental O2 Will treat with dexamethasone, DuoNebs p.r.n. Continue home inhalers Will place on maintenance fluids: LR @70 mls/hr Titrate supplemental O2 >92, wean as tolerated Hypokalemia Potassium 2.7 at time of presentation Likely secondary to reduced p.o. intake in the setting of COVID infection Patient received potassium supplementation in the ED Continue home potassium Follow BMP Hypomagnesemia Magnesium 1.4 at time of presentation Likely secondary to reduced p.o. intake in the setting of COVID infection Patient received magnesium supplementation in the ED Follow Mag Viral sepsis Patient tachycardic, tachypneic, febrile, and with leukocytosis; lactic acid WNL of 1.6 Secondary to COVID infection, not sepsis No clear source of bacterial infection, no indication for antibiotics at this time Syncope Patient found on bathroom floor by her with an unknown downtime; patient does not remember events surrounding fall Likely secondary to weakness from COVID infection Imaging negative for intracranial pathology or acute fracture or traumatic subluxation Will get echocardiogram to evaluate cardiac function Will place on gentle maintenance fluids PT evaluation Monitor on telemetry COPD Not in acute exacerbation Continue home inhalers HTN Continue home meds HLD Continue statin GERD Continue PPI Full Code Attending:?Dr Spear. DVT Prophylaxis: Lovenox Pt will require a hospitalization of at least two nights for treatment of?acute hypoxic respiratory failure and syncopal episode in the setting of COVID infection. Patient require treatment with IV steroids, IVF, supplemental oxygen, and electrolyte repletion as well as close monitoring of vitals, labs, and respiratory status. Quality Stroke Does the patient have a stroke diagnosis?: No VTE Prior VTE?: No VTE Risk Level:: Medical - moderate - high VTE Device Contraindication: Treatment Not Indicated VTE Drug Contraindication: N/A - Med Ordered
[2023-11-19] MEDS: Enoxaparin Sodium 40 MG/0.4 ML SYRINGE SUBCUT (19:49)
[2023-11-19] MEDS: Lactated Ringers 1,000 ML 70 ML IVCONT (20:14)
[2023-11-19] MEDS: Metoprolol Tartrate 12.5 MG HALFTAB PO (22:34)
[2023-11-20] VITALS (13 sets, daily range): BP systolic 115–179; BP diastolic 66–79; PULSE 71–91; RESP 18–22; TEMP 36.4–37.2; O2SAT 95–100
[2023-11-20] MEDS: Potassium Chloride/H20 10 MEQ/100 ML PIGGYBACK 100 MEQ IV ×2 (01:06→02:18)
[2023-11-20] MEDS: Levothyroxine Sodium 25 MCG TABLET PO (06:19)
[2023-11-20] MEDS: Omeprazole 20 MG CAPSULE.DR PO (06:19)
--- NOTE | 2023-11-20 07:00 | CA_ITS ---
Transthoracic Echocardiogram Patient (Last, First, Middle): Vero Ramírez A Gender: Female Date of : 1940 Age: 83 Procedure Date: 11/20/2023 Procedure Type: Transthoracic Echocardiogram Location: [facility] – [place] Height: 152.4 cm Weight: 90.72 kg BSA: 1.87 m2 Heart Rate: bpm BP: 136 / 69 mmHg Physician Industrial: GILMAR Referring MD: Joe TORRES Symptoms: Syncope Study Quality: Adequate with contrast ECG Rhythm: Sinus Conclusions: - The left ventricular systolic function is normal. The calculated ejection fraction is 63% by biplane method. - No obvious valvular pathology seen on this study. Findings Procedure Information Contrast agent, definity, is being given per protocol without apparent complications. Left Ventricle Normal left ventricular cavity size. There is normal left ventricular wall thickness. The left ventricular systolic function is normal. The calculated ejection fraction is 63% by biplane method. There is no evidence of regional wall motion abnormalities. Diastolic function is normal for age. Right Ventricle Normal right ventricular cavity size and systolic function. Atria Both atria are normal in size. Aortic Valve There is mild calcification of the aortic valve. There is no aortic valve stenosis. There is no aortic valve regurgitation. Mitral Valve There is mild mitral annular calcification. There is no mitral valve regurgitation. There is no mitral valve stenosis. Pulmonic Valve The pulmonic valve is likely normal. Tricuspid Valve There is trace tricuspid valve regurgitation. There is no evidence of pulmonary hypertension. Great Vessels The asc aorta is normal in size. Venous The inferior vena cava is normal in size and collapses greater than 50% with inspiration. Pericardium/Pleural There is no evidence of pericardial effusion. Prior Study Comparison No significant change compared to prior study dated: 05/01/2023. Recommendations, Care & Conclusions No obvious valvular pathology seen on this study. Measurements 2D Linear Measurements IVSd: 1.01 0.6-0.9/0.6-1.0 cm LVIDd: 4.35 3.9-5.3/4.2-5.9 cm LVIDd Index: 2.33 2.4-3.2/2.2-3.1 cm/m2 LVIDs: 3.08 2.0-3.6 cm LVPWd: 0.95 0.7-1.1 cm LA Diam: 3.10 2.7-3.8/3.0-4.0 cm LAIDs Index: 1.66 1.5-2.3 cm/m2 LV Mass: 175.56 67-162/88-224 g LV Mass Index: 93.88 43-95/49-115 g/m2 LVOT Diam: 1.90 3.0+(-)1.3 cm 2D Systolic Function EF 4C: 66.80 >55% EF 2C: 60.20 >55% EF BiP: 63.20 >55% Mitral Valve MV Pk E: 0.84 MV PK A: 0.90 MV Decel Time: 177.00 E/A: 0.90 E'Lateral: 8.81 E'Medial: 5.33 E/E' Med: 15.80 E/E' Lat: 9.50 PHT: 52.00 MVA PHT: 4.23 Decel Crenshaw: 4.75 Aortic Valve AoV Pk Shmuel: 1.00 AoV Mn Shmuel: 0.68 AoV VTI: 0.21 AoV Pk Grad: 4.00 Aov Mn Grad: 2.00 JANEL Cont.VTI: 2.12 LVOT LVOT Pk Shmuel: 0.71 LVOT Mn Shmuel: 0.48 LVOT VTI: 0.16 LVOT Pk Grad: 2.00 LVOT Mn Grad: 1.00 LVOT Diam: 1.90 LVOT Area: 2.84 Diastolic Function MV Pk E: 0.84 MV Pk A: 0.90 E/A: 0.90 E'Medial: 5.33 E/E' Med: 15.80 E' Laterial: 8.81 E/E' Lat: 9.50 Right Ventricle TAPSE (mm): 18.90 TVS' Shmuel: 10.80 Tricuspid Valve RA Press: 3.00 Great Vessels Aorta Sinus of Valsalva: 3.52 2.0-3.5 cm Ao Asc: 3.40 2.1-3.4 cm Updated in Other Vendor System with Status of Final Edgar Clinton MD electronically signed on 11/20/2023 1:17:40 PM with status of Final
--- NOTE | 2023-11-20 08:25 | MHC.CM.PN ---
IMM 11/20/23 DELIVERED TO PT AT BEDSIDE AND PLACED IN CHART, EMR REVIEWED, PT ADMITTED W/COVID 19 AND ELECTROLYTE IMBALANCE, CM MET W/PT AT BEDSIDE, PT A&O AND REPORTS SHE LIVES W/HER , USES A WALKER/CANE AND HAS GRAB BARS ALL OVER THE HOUSE, PT'S GOAL FOR DC IS HOME SOON POSSIBLE, PT OPEN TO [facility] IF RECOMMENDED. PT VERIFIES PCP ON FILE IS CORRECT, MODERNA X5 AND HCP IS [facility], BHAVNA CONTACTED [facility] AT 8:22AM [phone] TO REQUEST COPY AND [facility] REPORTS HE WILL GET A COPY FROM THEIR [facility] AND BRING IT IN TO CM, [facility] PROVIDED W/CM CONTACT NUMBER.
[2023-11-20 08:53] LABS: Hematocrit 38.2 % (37.0-47.0); Hemoglobin 13.1 g/dl (12.0-16.0); Mean Corpuscular HGB Conc 34.3 g/dl (31.0-35.0); Mean Corpuscular Volume 90.5 fL (80.0-98.0); Mean Platelet Volume 10.4 fL (9.4-12.3); Platelet Count 237 X10*3/uL (160-400); Red Blood Count 4.22 X10*6/uL (4.20-5.50); Red Cell Distribution Width 13.8 % (11.0-16.0); White Blood Count 10.7 X10*3/uL (4.8-10.8)
[2023-11-20] MEDS: dexAMETHasone sod phosphate 4 MG/ML VIAL 6 MG IVPUSH (08:56)
[2023-11-20] MEDS: 0.9 % Sodium Chloride Flush 3 ML SYRINGE IVFLUSH ×3 (08:57→22:45)
[2023-11-20] MEDS: Artificial Tears 15 ML DROPS 2 DROP EYE-BOTH (08:57)
[2023-11-20] MEDS: Fluticasone Propionate Nasal 16 GM SPRAY 1 SPRAY NOSTRIL-B (08:57)
[2023-11-20] MEDS: Loratadine 10 MG TABLET PO (09:00)
[2023-11-20] MEDS: Cholecalciferol (Vitamin D3) 25 MCG TABLET PO (09:00)
[2023-11-20] MEDS: Folic Acid 1 MG TABLET PO (09:00)
[2023-11-20] MEDS: Magnesium Oxide 400 MG TABLET PO (09:00)
[2023-11-20] MEDS: Potassium Chloride ER 10 MEQ TABLET.ER PO (09:00)
[2023-11-20] MEDS: Sertraline HCL 25 MG TABLET PO (09:00)
[2023-11-20] MEDS: Metoprolol Tartrate 12.5 MG HALFTAB PO ×2 (09:01→22:44)
[2023-11-20] MEDS: Atorvastatin Calcium 10 MG TABLET PO (09:01)
[2023-11-20] MEDS: Lactated Ringers 1,000 ML 70 ML IVCONT ×2 (09:03→23:10)
[2023-11-20 09:06] LABS: Anion Gap 12 (12-20); Blood Urea Nitrogen 15 mg/dL (9-16); Carbon Dioxide 23 mmol/L (22-29); Chloride 104 mmol/L (96-108); Creatinine Clr Calc Pharmacy 72.7; Estimated Glomerular Filt Rate > 60; Glucose Random 92 mg/dL (60-115); Magnesium 2.1 mg/dL (1.6-2.6); Potassium 4.1 mmol/L (3.3-5.1); Sodium 135 mmol/L (135-145)
--- NOTE | 2023-11-20 10:42 | MHC.CM.PN ---
PT'S [facility] BROUGHT IN COPY OF PT'S HCP, [facility] [phone] IS [facility] AND PT'S ELDEST SON SRIKANTH CONNELLY [phone] IS PT'S ALTERNATE, COPY UPLOADED TO [facility] AND PLACED IN PAPER CHART PRIOR TO THIS NOTE.
--- NOTE | 2023-11-20 15:09 | P.PNIM_ITS ---
Subjective Subjective Date of Service: 11/20/23 Interval History: Hypoxemic respiratory failure, COVID, dehydration, decreased p.o. intake. Review of Systems Patient seems to feel somewhat better shortness of breath saleem, encouraged her to eat more, feels generalized weak, still hypoxic. Physical Exam 2 Vital Signs: Vital Signs: Last Vital Signs Temp 98.1 F 11/20/23 12:00 Pulse 74 11/20/23 12:19 Resp 20 11/20/23 12:00 BP 154/72 H 11/20/23 12:19 Pulse Ox 98 11/20/23 07:59 O2 Del Method Nasal Cannula 11/20/23 12:00 O2 Flow Rate 2 11/20/23 12:00 BMI result Body Mass Index 39.2 Appearance: Alert.? Oriented X3. cvs: [id number], [id number] , no murmur res: clear to auscultation ,no rhonchii or wheezing abd: no rebound or guarding ,nt, bs present. ext pulses present , no cyanosis . neuro: axo3 , nonfocal. Objective Data Active Medications Acetaminophen (Acetaminophen 325 Mg Tablet) 650 mg PO Q6H PRN PRN Reason: Pain, Mild (Pain Scale 1-3) Albuterol Sulfate (Albuterol Sulfate 90 Mcg 8 Gm Inhaler) 2 puff INHALE RQ6H PRN PRN Reason: Shortness Of Breath Or Wheezing Albuterol/Ipratropium (Albuterol/Iprat 2.5/0.5mg 3 Ml Ampul.Neb) 3 ml INHALE RQ4H WHILE AWAKE PRN PRN Reason: Shortness of Breath/Wheezing Artificial Tears (Artificial Tears 15 Ml Drops) 2 drop EYE-BOTH Q4H PRN PRN Reason: dry eye Last Admin: 11/20/23 08:57 Dose: 2 drop Documented By: ALIYA Atorvastatin Calcium (Atorvastatin Calcium 10 Mg Tablet) 10 mg PO DAILY [facility] Last Admin: 11/20/23 09:01 Dose: 10 mg Documented By: ALIYA Benzonatate (Benzonatate 100 Mg Capsule) 100 mg PO TID PRN PRN Reason: Cough Dexamethasone Sodium Phosphate (Dexamethasone Sod Phosphate 4 Mg/Ml Vial) 6 mg IVPUSH DAILY [facility] Last Admin: 11/20/23 08:56 Dose: 6 mg Documented By: ALIYA Docusate Sodium (Docusate Sodium 100 Mg Capsule) 100 mg PO DAILY PRN PRN Reason: Constipation Enoxaparin Sodium (Enoxaparin Sodium 40 Mg/0.4 Ml Syringe) 40 mg SUBCUT Q24H [facility] Last Admin: 11/19/23 19:49 Dose: 40 mg Documented By: DIPAK Fluticasone Propionate (Fluticasone Propionate Nasal 16 Gm Cascade) 1 spray NOSTRIL-B DAILY [facility] Last Admin: 11/20/23 08:57 Dose: 1 spray Documented By: ALIYA Folic Acid (Folic Acid 1 Mg Tablet) 1 mg PO DAILY [facility] Last Admin: 11/20/23 09:00 Dose: 1 mg Documented By: ALIYA Lactated Ringer's (Lr) 1,000 mls @ 70 mls/hr IVCONT .[id number] [facility] Last Infusion: 11/20/23 13:16 Dose: 70 mls/hr Documented By: ALIYA Levothyroxine Sodium (Levothyroxine Sodium 25 Mcg Tablet) 25 mcg PO DAILY@0600 [facility] Last Admin: 11/20/23 06:19 Dose: 25 mcg Documented By: ELIS Loratadine (Loratadine 10 Mg Tablet) 10 mg PO DAILY [facility] Last Admin: 11/20/23 09:00 Dose: 10 mg Documented By: ALIYA Magnesium Oxide (Magnesium Oxide 400 Mg Tablet) 400 mg PO DAILY [facility] Last Admin: 11/20/23 09:00 Dose: 400 mg Documented By: ALIYA Melatonin (Melatonin 3 Mg Tablet) 6 mg PO BEDTIME PRN PRN Reason: Insomnia Metoprolol Tartrate (Metoprolol Tartrate 12.5 Mg Halftab) 12.5 mg PO BID [facility]; Protocol Last Admin: 11/20/23 09:01 Dose: 12.5 mg Documented By: ALIYA Omeprazole (Omeprazole 20 Mg Capsule.Dr) 20 mg PO DAILY@0630 [facility] Last Admin: 11/20/23 06:19 Dose: 20 mg Documented By: ELIS Ondansetron HCl (Ondansetron Hcl 4 Mg/2 Ml Vial) 4 mg IVPUSH Q8H PRN PRN Reason: Nausea and Vomiting Potassium Chloride (Potassium Chloride Er 10 Meq Tablet.Er) 10 meq PO DAILY [facility] Last Admin: 11/20/23 09:00 Dose: 10 meq Documented By: ALIYA Sertraline HCl (Sertraline Hcl 25 Mg Tablet) 25 mg PO DAILY [facility] Last Admin: 11/20/23 09:00 Dose: 25 mg Documented By: ALIYA Sodium Chloride (0.9 % Sodium Chloride Flush 3 Ml Syringe) 3 ml IVFLUSH QSHIFT [facility] Last Admin: 11/20/23 08:57 Dose: 3 ml Documented By: ALIYA Vitamin D (Cholecalciferol (Vitamin D3) 25 Mcg Tablet) 25 mcg PO DAILY [facility] Last Admin: 11/20/23 09:00 Dose: 25 mcg Documented By: ALIYA Labs 11/20/23 08:22 11/20/23 08:22 Labs: Laboratory Results - last 24 hr 11/19/23 11/20/23 13:14 08:22 MCV 90.5 MCH 31.0 MCHC 34.3 RDW 13.8 Plt Count 237 MPV 10.4 Absolute Nucleated RBC 0.000 Nucleated RBC % (auto) 0.0 Anion Gap 12 Estim Creat Clear Calc 72.7 Estimated GFR > 60 Random Glucose 92 Calcium 9.0 D Magnesium 2.1 Procalcitonin 0.12 Microbiology Microbiology Results: Microbiology 11/19/23 11:27 Blood Culture - Preliminary Blood - Venous No growth after 24 hours. 11/19/23 11:32 Blood Culture - Preliminary Blood - Venous No growth after 24 hours. Assessment and Plan (1) Syncope: Status: Acute (2) Hypokalemia: Status: Acute (3) COVID-19: Status: Acute Plan 83-year-old female with a PMH significant for?HLD, HTN, polymyalgia rheumatica, osteoarthritis, and hypothyroidism who presents to the ED after fall at home earlier this morning. Pt will be admitted to the hospital for treatment and further evaluation of acute hypoxic respiratory failure in the setting of COVID infection. Acute hypoxic respiratory failure in the setting of COVID infection Patient desatting as low as 84% on RA; patient not on supplemental O2 Continue steroids, nebs, Titrate supplemental O2 >92, wean as tolerated Hypokalemia Repleted and resolved Hypomagnesemia Repleted and resolved Viral sepsis Patient tachycardic, tachypneic, febrile, and with leukocytosis; lactic acid WNL of 1.6 Secondary to COVID infection, not sepsis No clear source of bacterial infection, no indication for antibiotics at this time Syncope Patient found on bathroom floor by her with an unknown downtime; patient does not remember events surrounding fall Likely secondary to weakness from COVID infection, dehydration, multiple electrolytic abnormalities. Imaging negative for intracranial pathology or acute fracture or traumatic subluxation Echo Orthostatics seems negative PT evaluation Monitor on telemetry COPD Not in acute exacerbation Continue home inhalers HTN Continue home meds HLD Continue statin GERD Continue PPI DVT Prophylaxis: Lovenox Ongoing hospitalization need for treatment of?acute hypoxic respiratory failure and syncopal episode in the setting of COVID infection-oxygen dependent, treatment with IV steroids, IVF, supplemental oxygen, and electrolyte repletion as well as close monitoring of vitals, labs, and respiratory status. Quality Stroke Does the patient have a stroke diagnosis?: No VTE Prior VTE?: No VTE Risk Level:: Medical - moderate - high VTE Device Contraindication: Treatment Not Indicated VTE Drug Contraindication: N/A - Med Ordered
[2023-11-20 16:10] LABS: Appearance Urine Clear; Color Urine Yellow; Glucose Urine UA Negative (Negative); Leukocyte Esterase Urine Moderate (2+) (Negative); Nitrite Urine Negative (Negative); UMIC TRIGGER UACC YES; Urine Blood Trace (Negative); Urine Ketones Negative (Negative); Urine Protein Negative (Neg-Trace)
[2023-11-20 16:12] LABS: Bacteria Urine None Seen (None Seen); Hyaline Casts Urine 0-2 /LPF (0-2); UACC Culture Trigger YES; WBC Urine 21-50 /HPF (0-5)
[2023-11-20 16:26] LABS: RBC Urine 0-2 /HPF (0-2)
[2023-11-20] MEDS: Enoxaparin Sodium 40 MG/0.4 ML SYRINGE SUBCUT (22:44)
[2023-11-20] MEDS: Albuterol/Iprat 2.5/0.5MG 3 ML AMPUL.NEB INHALE (23:10)
[2023-11-21 03:09] VITALS: BP 133/60; PULSE 74; RESP 18; TEMP 36.8; O2SAT 93
[2023-11-21] MEDS: Omeprazole 20 MG CAPSULE.DR PO (05:48)
[2023-11-21] MEDS: Levothyroxine Sodium 25 MCG TABLET PO (05:48)
[2023-11-21 07:21] LABS: Anion Gap 12 (12-20); Blood Urea Nitrogen 18 mg/dL (9-16); Calcium 8.5 mg/dL (8.4-10.2); Carbon Dioxide 25 mmol/L (22-29); Chloride 105 mmol/L (96-108); Creatinine Clr Calc Pharmacy 73.9; Estimated Glomerular Filt Rate > 60; Glucose Random 75 mg/dL (60-115); Potassium 3.9 mmol/L (3.3-5.1); Sodium 138 mmol/L (135-145)
[2023-11-21 07:38] VITALS: BP 139/67; PULSE 83; RESP 18; TEMP 36.6; O2SAT 96
[2023-11-21 07:42] VITALS: BP 126/59; PULSE 79
[2023-11-21 07:49] VITALS: BP 124/70; PULSE 80
[2023-11-21 07:52] VITALS: BP 128/73; PULSE 88
[2023-11-21] MEDS: Cholecalciferol (Vitamin D3) 25 MCG TABLET PO (08:17)
[2023-11-21] MEDS: Metoprolol Tartrate 12.5 MG HALFTAB PO (08:17)
[2023-11-21] MEDS: Loratadine 10 MG TABLET PO (08:18)
[2023-11-21] MEDS: Folic Acid 1 MG TABLET PO (08:18)
[2023-11-21] MEDS: Sertraline HCL 25 MG TABLET PO (08:18)
[2023-11-21] MEDS: 0.9 % Sodium Chloride Flush 3 ML SYRINGE IVFLUSH (08:18)
[2023-11-21] MEDS: dexAMETHasone sod phosphate 4 MG/ML VIAL 6 MG IVPUSH (08:18)
[2023-11-21] MEDS: Potassium Chloride ER 10 MEQ TABLET.ER PO (08:18)
[2023-11-21] MEDS: Atorvastatin Calcium 10 MG TABLET PO (08:18)
[2023-11-21] MEDS: Magnesium Oxide 400 MG TABLET PO (08:18)
[2023-11-21] MEDS: Albuterol Sulfate 90 MCG 8 GM INHALER 2 PUFF INHALE (09:43)
[2023-11-21] MEDS: Artificial Tears 15 ML DROPS 2 DROP EYE-BOTH (09:43)
[2023-11-21] MEDS: Fluticasone Propionate Nasal 16 GM SPRAY 1 SPRAY NOSTRIL-B (09:44)
--- NOTE | 2023-11-21 11:07 | PM.DS ---
DS: Providers Provider Date of Service: 11/21/23 Date of admission: 11/19/23 19:11 Date of discharge: 11/21/23 Primary care physician: Ismael Davis MD Attending physician on discharge: Briana Spear Discharging clinician: Briana Spear DS: Diagnosis Discharge Diagnosis (1) Syncope: Status: Acute (2) Hypokalemia: Status: Acute (3) COVID-19: Status: Acute DS: Summary Hospital Course Hospital Course: 83-year-old female with a PMH significant for?HLD, HTN, polymyalgia rheumatica, osteoarthritis, and hypothyroidism who presents to the ED after fall at home earlier this morning. Patient is accompanied by who helps supplement HPI. Apparently found patient on the bathroom floor at 04:30 this morning after an unknown period of down time. states pt was too weak to stand up and it took him 1 1/2 hours to move her to the bed. Patient herself does not remember going to the bathroom or events surrounding fall, but developed nonproductive cough yesterday morning and has been feeling weak, nauseous, and had reduced p.o. intake for the past couple of days. Chronic fatigue and myalgias around baseline. Chronic shortness of breath around baseline. Denies chest pain/pressure, palpitations. Denies fever, chills, abdominal pain. No vomiting or diarrhea. Denies headache, lightheadedness, dizziness. ? In the ED pt was febrile up to 102.6, tachycardic up to 99, tachypneic up to 24, and was soft BP as low as 117/58. Labs were significant for testing positive for COVID, leukocytosis 13.7, potassium 2.7, magnesium 1.4, total protein 5.9, and albumin 3.3. X-ray of hips with question of subtle impaction fracture of right femoral neck subcapital region. 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 CT of head found no acute intracranial pathology. And CT of cervical spine found no evidence of acute fracture or traumatic subluxation. CTA of chest found emphysema with no evidence of acute disease in the chest. EKG demonstrated normal sinus rhythm with sinus arrhythmia and nonspecific ST abnormality. Pt was treated with ceftriaxone, IVF, Solu-Medrol, acetaminophen, potassium chloride, and magnesium sulfate. Pt will be admitted to the hospital for treatment and further evaluation of acute hypoxic respiratory failure in the setting of COVID infection. Hospital course: Patient was admitted for acute hypoxemic respiratory failure secondary to COVID infection, viral sepsis, in addition had multiple electrolytic abnormalities including hypokalemia and hypomagnesemia, poor oral intake and dehydration: Patient was started on supplemental oxygen, dexamethasone, given p.o. hydration and electrolytes are repleted,placed on tele as well as echo ordered: With above supportive care patient seems to be improved significantly, telemetry reviewed seems fine, echo seems also fine, electrolytes repleted and seems improved. orthostatsis negative. Possible near Syncopal episode-as per she was awake but weak(this seems possibly multifactorial including COVID, dehydration, electrolyte abnormalities), telemetry seems fine and echo also fine, no further episodes in the hospital. plan: Patient was given p.o. dexamethasone for home 4 more days, advised for self isolation for more 4 days. Possible near Syncopal episode-as per she was awake but weak(this seems possibly multifactorial including COVID, dehydration, electrolyte abnormalities), telemetry seems fine and echo also fine, no further episodes in the hospital. Further workup outpatient with PCP. Above management discussed with the patient in detail length she understand and in agreement with the above plan, Assessment and plan coordination time spent 50 minute. Time Attestation Discharge coordination time: Greater than 30 minutes Quality: Safe Use of Opioids Does Pt have an Active Cancer Diagnosis on the Problem List?: No Quality: Stroke Does the patient have a stroke diagnosis?: No Physical Exam Vital Signs: Vital Signs: Last Vital Signs Temp 97.8 F 11/21/23 07:38 Pulse 88 11/21/23 07:52 Resp 18 11/21/23 07:38 BP 128/73 11/21/23 07:52 Pulse Ox 96 11/21/23 07:38 O2 Del Method Room Air 11/21/23 07:38 O2 Flow Rate 2 11/20/23 12:00 BMI result Body Mass Index 39.2 Appearance: Alert.? Oriented X3. cvs: rrr, [id number] , no murmur res: clear to auscultation ,no rhonchii or wheezing abd: no rebound or guarding ,nt, bs present. ext pulses present , no cyanosis . neuro: axo3 , nonfocal. DS: Data Data Completed and Pending Labs on day of discharge: Laboratory Results - last 24 hr 11/20/23 11/21/23 16:00 06:37 Hold Purple Top SEE NOTE Sodium 138 Potassium 3.9 Chloride 105 Carbon Dioxide 25 Anion Gap 12 BUN 18 H Creatinine 0.60 Estim Creat Clear Calc 73.9 Estimated GFR > 60 Random Glucose 75 Calcium 8.5 Magnesium 2.0 Urine Color Yellow Urine Appearance Clear Urine pH 6.0 Ur Specific [place] 1.020 Urine Protein Negative Urine Glucose (UA) Negative Urine Ketones Negative Urine Blood Trace H Urine Nitrite Negative Ur Leukocyte Esterase Moderate (2+) H Urine RBC 0-2 Urine WBC 21-50 H Ur Squamous Epith Cells 3-5 Urine Bacteria None Seen Hyaline Casts 0-2 Preliminary micro results at discharge 11/19/23 11:27 Blood Culture - Preliminary Blood - Venous No growth after 24 hours. 11/19/23 11:32 Blood Culture - Preliminary Blood - Venous No growth after 24 hours. Imaging Chest x-ray: Radiologist's impression: ITS Impressions Hip X-Ray 11/19/23 12:10 IMPRESSION: Query subtle impaction fracture right femoral neck subcapital region. Recommend CT. Head CT 11/19/23 15:19 IMPRESSION: 1. No acute intracranial pathology. 2. No CT evidence of acute cervical spine fracture or traumatic subluxation Cervical Spine CT 11/19/23 15:20 IMPRESSION: 1. No acute intracranial pathology. 2. No CT evidence of acute cervical spine fracture or traumatic subluxation Chest CTA 11/19/23 15:20 IMPRESSION: Emphysema. No evidence for acute disease in chest. VTE: negative Hip CT 11/19/23 15:21 IMPRESSION: 1. No acute fracture or malalignment at the right hip. 2. Mild to moderate osteoarthritis in the right hip. 3. Moderate to severe osteoarthritis at the pubic symphysis. 4. 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 Discharge Plan Discharge Anticipated Discharge Date/Time: 11/21/23 10:40 Patient Disposition: Home Health Service Discharge Diagnosis: Hypoxemic respiratory failure secondary to COVID, syncope multifactorial dehydration/COVID/electrolytic abnormalities Referrals: Ismael Davis MD [Primary Care Provider] - 1 Week Discharge Medications: New dexamethasone 6 mg tablet 6 mg PO DAILY Qty: 4 0RF Continued acetaminophen [Mapap Arthritis Pain] 650 mg tablet extended release 1 tab PO Q8H PRN (Reason: pain) magnesium oxide 400 mg (241.3 mg magnesium) Tablet 400 mg PO DAILY cholecalciferol (vitamin D3) [Vitamin D3] 25 mcg (1,000 unit) Tablet 25 mcg PO DAILY polyvinyl alcohol [Artificial Tears (polyvin alc)] 1.4 % Drops 2 drp ophthalmic (eye) Q4H PRN (Reason: dry eye) Qty: 15 0RF albuterol sulfate [ProAir HFA] 90 mcg/actuation HFA aerosol inhaler 2 puff inhalation Q6H PRN (Reason: Shortness Of Breath Or Wheezing) Qty: 8.5 0RF metoprolol tartrate 25 mg tablet 12.5 mg PO BID Qty: 30 0RF omeprazole 20 mg capsule,delayed release(DR/EC) 20 mg PO DAILY@0630 fexofenadine 180 mg tablet 180 mg PO DAILY fluticasone propionate [Allergy Relief (fluticasone)] 50 mcg/actuation spray,suspension 1 spray intranasal DAILY Rx Instructions: administer into each nostril simvastatin 20 mg tablet 20 mg PO DAILY hydrochlorothiazide 25 mg tablet 25 mg PO DAILY folic acid 1 mg tablet 1 mg PO DAILY levothyroxine 25 mcg tablet 25 mcg PO DAILY potassium chloride 10 mEq tablet extended release 10 meq PO DAILY sertraline 25 mg tablet 25 mg PO DAILY Held prednisone 2.5 mg tablet 2.5 mg PO TID Hold Instructions: Resume on 11/25/23. Discharge Orders: Discharge Order (Routine); Ordered 11/21/23 Ordered By: Briana Spear Diet: Advance to usual diet Activity on Discharge: As tolerated Stand Alone Forms: Patient Portal Discharge page Other Ambulatory Orders: Basic Metabolic Panel (Routine) Timeframe: 1 Week Facility: [facility] - Location: Laboratory Ordered By: Briana Spear Magnesium (Routine) Timeframe: 1 Week Facility: [facility] - Location: Laboratory Ordered By: Briana Spear Care Plan Goals: Patient was admitted for acute hypoxemic respiratory failure secondary to COVID infection, viral sepsis, in addition had multiple electrolytic abnormalities including hypokalemia and hypomagnesemia, poor oral intake and dehydration: Patient was started on supplemental oxygen, dexamethasone, given p.o. hydration and electrolytes are repleted,placed on tele as well as echo ordered: With above supportive care patient seems to be improved significantly, telemetry reviewed seems fine, echo seems also fine, electrolytes repleted and seems improved. orthostatsis negative. Possible near Syncopal episode-as per she was awake but weak(this seems possibly multifactorial including COVID, dehydration, electrolyte abnormalities), telemetry seems fine and echo also fine, no further episodes in the hospital. Further workup outpatient with PCP. Patient was given p.o. dexamethasone for home 4 more days, advised for self isolation for more 4 days. Health Concerns: Patient was given p.o. dexamethasone for home 4 more days, advised for self isolation for more 4 days. Plan of Treatment: As above. Assessment: As above.
--- NOTE | 2023-11-21 11:11 | W.MHC.F2F ---
Service Date Service Date: 11/21/23 Encounter Date of encounter: 11/21/23 Encounter: COVID, electrolytic abnormalities Reasons for Services Signs and symptoms assessed: Shortness of breath Reason for chcf: CV/CP assess and/or care, medication management, medication treatment and teach disease management Reason for physical therapy: home safety and mobility, therapeutic exercises, restore joint function, gait/transfer training, assess need for DME, ADL training, energy conservation and other MD Overseeing Care: Ismael Davis Homebound: Leaving the home is medically contraindicated at this time without the asist of a device and/or another person due th the listed conditions above and below. Reason homebound: weakness related to hospital stay Homebound supporting statement: Patient has multiple comorbidities generalized weak post hospitalization stay need help to go to appointments, lab draw, PT Certification: Based on the above findings, I certify that this patient is confined to the home and needs intermittent chcf care, physical therapy and/or speech therapy, or continues to need occupational therapy. The patient is under my care, and I have initiated the establishment of the plan of care. The patient will be followed by a physician who will periodically review the plan of care. Time Spent With Patient Time: Total time managing care of this patient today ____ minutes.
--- NOTE | 2023-11-21 11:24 | MHC.CM.PN ---
Addendum entered by Kate June RN 11/21/23 12:44: [facility] TO PROVIDE VNA SERVICES W/SOC TOMORROW SAT 11/22. Original Note: PT MEDICALLY CLEARED FOR DC HOME W/NEW VNA FOR SN/PT, REFERRAL PLACED TO VNA'S THAT TAKE HNE, PT'S [facility] FOR TRANSPORT.
== END 2023-11-21 13:25 | disposition home health service (06) | DRG 871 ==
LOC: HO.ED 14:15 → HO.EDOVER 19:25 → HO.IMC 19:48
PROVIDERS: Admitting Provider Student in an Organized Health Care Education/Training Program; Emergency Provider Emergency Medicine; PCP Internal Medicine; Visit Provider Internal Medicine
DX: A41.89 Other specified sepsis (principal); J96.01 Acute respiratory failure with hypoxia; U07.1 COVID-19; J44.9 Chronic obstructive pulmonary disease, unspecified; E03.9 Hypothyroidism, unspecified; E78.5 Hyperlipidemia, unspecified; E83.42 Hypomagnesemia; I25.10 Atherosclerotic heart disease of native coronary artery without angina pectoris; G47.33 Obstructive sleep apnea (adult) (pediatric); E87.6 Hypokalemia; E86.0 Dehydration; Z87.891 Personal history of nicotine dependence; M35.3 Polymyalgia rheumatica; Z79.51 Long term (current) use of inhaled steroids; Z79.52 Long term (current) use of systemic steroids; Z79.890 Hormone replacement therapy; Z79.899 Other long term (current) drug therapy
CPT/HCPCS: 36415; 70450; 71275; 72125; 73502; 73700; 80048; 80076; 81001; 82550; 82803; 83605; 83690; 83735; 83880; 84145; 84484; 85025; 85027; 87040; 87086; 87502; 87635; 93005; 93306; 94640; 97161; 99285; J0696; J1100; J1650; J2930; J3475; J3480; J7120; Q9957

== ENCOUNTER → 2023-11-19 10:52 | Outpatient (BNV) | payer MEDICARE, SELFPAY | PROVIDERS: Admitting Provider Student in an Organized Health Care Education/Training Program; Emergency Provider Emergency Medicine; PCP Internal Medicine; Visit Provider Internal Medicine | DX: I49.9 Cardiac arrhythmia, unspecified (principal) | CPT/HCPCS: 93010 ==

== ENCOUNTER 2023-11-19 19:11 | Outpatient (BNV) | payer MEDICARE, SELFPAY | END 2023-11-20 07:00 | PROVIDERS: Admitting Provider Student in an Organized Health Care Education/Training Program; Emergency Provider Emergency Medicine; PCP Internal Medicine; Visit Provider Internal Medicine | DX: I34.81 Nonrheumatic mitral (valve) annulus calcification (principal); I35.8 Other nonrheumatic aortic valve disorders | CPT/HCPCS: 93306 ==

== ENCOUNTER → 2023-11-19 19:11 | Outpatient (BNV) | payer MEDICARE, SELFPAY | PROVIDERS: Admitting Provider Student in an Organized Health Care Education/Training Program; Emergency Provider Emergency Medicine; PCP Internal Medicine; Visit Provider Student in an Organized Health Care Education/Training Program | DX: U07.1 COVID-19 (principal); J96.01 Acute respiratory failure with hypoxia; R55 Syncope and collapse; E87.6 Hypokalemia; E83.42 Hypomagnesemia | CPT/HCPCS: 99223; 99232; 99238; G0180 ==

== ENCOUNTER 2023-11-28 11:51 | Outpatient (REF) | payer MEDICARE, SELFPAY ==
[2023-11-28 12:56] LABS: Anion Gap 15 (12-20); Blood Urea Nitrogen 20 mg/dL (9-16); Calcium 9.6 mg/dL (8.4-10.2); Carbon Dioxide 30 mmol/L (22-29); Chloride 103 mmol/L (96-108); Estimated Glomerular Filt Rate > 60; Glucose Random 83 mg/dL (60-115); Magnesium 1.8 mg/dL (1.6-2.6); Potassium 3.6 mmol/L (3.3-5.1); Sodium 144 mmol/L (135-145)
== END 2023-11-28 11:52 | disposition home or self-care (01) ==
LOC: HO.LNP 11:51
PROVIDERS: Visit Provider Internal Medicine
DX: J96.01 Acute respiratory failure with hypoxia (principal); E86.0 Dehydration
CPT/HCPCS: 80048; 83735

== ENCOUNTER 2023-12-08 10:14 | Outpatient (AMB) | payer MEDICARE, SELFPAY ==
--- NOTE | 2023-12-08 10:15 | A.OFFVIS_ITS ---
Intake Intake Visit Reasons: ov- impingement RT shoulder l Intake Note: Vero is a 83 year old Right hand dominate female who presents for Right shoulder pain. Patient reports her last injection on 08/13/2023 gave her relief and would like an injection today. She describes her right shoulder pain as sharp nature. Her pain has gotten worse over the last few years in spite of continued non operative treatments. She wishes to hold off on surgery for as long as possible. She has tried Tylenol and anti-inflammatory medicines which gave her minimal relief. Allergies naproxen [NAPROXEN] Allergy (Intermediate, Verified 12/08/23 10:19) BLISTERS IN MOUTH Sulfa (Sulfonamide Antibiotics) [SULFA (SULFONAMIDE ANTIBIOTICS)] Allergy (Intermediate, Verified 12/08/23 10:19) BLISTERS ON TONGUE Medication List - Last Reconciled 12/08/23 by Jose Morales MD acetaminophen ER (Mapap Arthritis Pain) 1 tab PO Q8H PRN albuterol sulfate 90 mcg/actuation (ProAir HFA) 2 puffs inhalation Q6H PRN cholecalciferol (vitamin D3) (Vitamin D3) 25 mcg PO DAILY dexamethasone 6 mg PO DAILY fexofenadine 180 mg PO DAILY fluticasone propionate 50 mcg/actuation (Allergy Relief (fluticasone)) 1 spray intranasal DAILY folic acid 1 mg PO DAILY hydrochlorothiazide 25 mg PO DAILY levothyroxine 25 mcg PO DAILY magnesium oxide 400 mg PO DAILY metoprolol tartrate 12.5 mg (1/2 x 25 mg) PO BID omeprazole 20 mg PO DAILY@0630 polyvinyl alcohol 1.4% (Artificial Tears (polyvinyl alcohol)) 2 drps ophthalmic (eye) Q4H PRN potassium chloride ER 10 mEq PO DAILY prednisone 2.5 mg PO TID sertraline 25 mg PO DAILY simvastatin 20 mg PO DAILY PFSH Medical History Dyspnea on exertion Bronchitis Hyperlipidemia Hypertension Polymyalgia rheumatica Surgical History Hx of cholecystectomy Hx of hysterectomy Family History Mother CHF (congestive heart failure) Social History Household Members: Spouse Housing: House Do you presently have visiting nurse or other home services: No Alcohol intake: current Alcohol intake frequency: holidays/special occasions only Patient Tobacco Use Status: Former Tobacco user Tobacco use type: Cigarette Cigarettes Per Day: 15 Years Smoked: 4 e-Cigarette/Vaping Use: Never Used Second Hand Smoke Exposure: No Substance Use Type: Marijuana service: No Current occupational status: retired Physical Exam Const Other: Well-nourished well-developed very friendly female awake alert and oriented x3 in no acute distress Extrem Other: Bilateral upper extremity examination shows good capillary refill, no skin lesions noted, normal sensation light touch Right shoulder examination shows decreased range of motion when compared to her left shoulder, 4+ out of 5 strength with supraspinatus testing, positive impingement signs, no instability Office Procedures Joint Injection/Drain Joint Injection/Drain Primary Site: right shoulder Prep: site was prepped using aseptic technique Injected: 40 mg of, DepoMedrol and 1% plain lidocaine Procedure: The patient tolerated the procedure well Coding 67659 - Large joint Procedure code (CPT) selection complete Assessment & Plan Assessment & Plan (1) Impingement of right shoulder: Code(s): M25.811 - Other specified joint disorders, right shoulder Plan Ms. Ramírez presents with right shoulder pain due to impingement syndrome. I had a lengthy discussion with the patient regarding the treatment options. She wishes to hold off on surgery for as long as possible. I agree with this plan. The risks and benefits of a right shoulder cortisone injection were discussed at length with the patient. The patient wished to proceed. She tolerated the inje ction well. She will continue with her home stretching program. She will follow up with me on an as-needed basis should her symptoms not plateau at an unacceptable level over the next few weeks. Feel free to call me at any time should questions regarding her orthopedic management arise. I spent 22 minutes in reviewing the patient's records and imaging studies, seeing the patient and documenting in the medical record. Orders: Orders AMB Joint Injection/Aspiration Today M25.811 - Other specified joint disorders, right shoulder Coding Level of Care Code Est Pt Level 2 (21917) Diagnoses Impingement of right shoulder M25.811 CPT Codes Coding - 24990 Large joint: 13809 - Large joint ([id number])
== END 2023-12-08 10:47 | disposition home or self-care (01) ==
PROVIDERS: PCP Internal Medicine; Visit Provider Orthopaedic Surgery
DX: M25.811 Other specified joint disorders, right shoulder (principal)
CPT/HCPCS: 20610; 99212

== ENCOUNTER → 2023-12-08 10:14 | Outpatient (BNVA) | payer MEDICARE, SELFPAY | PROVIDERS: PCP Internal Medicine; Visit Provider Orthopaedic Surgery | DX: M25.811 Other specified joint disorders, right shoulder (principal) | CPT/HCPCS: 20610; 99212; J1020 ==

== ENCOUNTER 2023-12-18 11:30 | Outpatient (REF) | payer MEDICARE, SELFPAY ==
[2023-12-18 13:24] LABS: MANUAL DIFF FLAG NO
[2023-12-18 13:33] LABS: Basophils Percent Auto 0.2 % (0-2); Eosinophils Absolute Auto 0.1 X10*3/uL (0.0-0.4); Eosinophils Percent Auto 0.9 % (0-4); Hematocrit 40.2 % (37.0-47.0); Hemoglobin 13.4 g/dl (12.0-16.0); Imm Gran Abs Auto 0.14 X10*3/uL (0.00-0.03); Imm Gran Pct Auto 1.1 % (0.0-0.4); Lymphocytes Absolute Auto 2.5 X10*3/uL (1.2-4.9); Lymphocytes Percent Auto 20.2 % (20-40); Mean Corpuscular HGB Conc 33.3 g/dl (31.0-35.0); Mean Corpuscular Hemoglobin 30.8 pg (27.0-33.0); Mean Corpuscular Volume 92.4 fL (80.0-98.0); Mean Platelet Volume 10.3 fL (9.4-12.3); Monocytes Absolute Auto 1.2 X10*3/uL (0.1-1.2); Monocytes Percent Auto 9.3 % (2-11); Neutrophils Absolute Auto 8.5 x10*3/uL (2.0-8.3); Neutrophils Percent Auto 68.3 % (45-73); Platelet Count 268 X10*3/uL (160-400); Red Blood Count 4.35 X10*6/uL (4.20-5.50); Red Cell Distribution Width 13.6 % (11.0-16.0); White Blood Count 12.5 X10*3/uL (4.8-10.8)
[2023-12-18 13:53] LABS: Alanine Aminotransferase 15 U/L (0-31); Albumin Level 3.7 g/dL (3.5-5.0); Alkaline Phosphatase 47 U/L (39-117); Anion Gap 10 (12-20); Aspartate Amino Transferase 16 U/L (5-31); Bilirubin Total 0.4 mg/dL (0.0-1.0); Blood Urea Nitrogen 15 mg/dL (9-16); Calcium 9.2 mg/dL (8.4-10.2); Carbon Dioxide 30 mmol/L (22-29); Chloride 101 mmol/L (96-108); Estimated Glomerular Filt Rate > 60; Glucose Random 85 mg/dL (60-115); Sodium 138 mmol/L (135-145); Total Protein 6.4 g/dL (6.5-8.0)
[2023-12-18 14:04] LABS: Free T4 (Free Thyroxine) 1.23 ng/dL (0.71-1.85); Thyroid Stimulating Hormone 1.65 uIU/mL (0.32-4.0)
[2023-12-18 14:08] LABS: Vitamin B12 468 pg/mL (200-900)
[2023-12-18 14:11] LABS: Erythrocyte Sedimentation Rate 22 MM/HR (0-20)
== END 2023-12-18 11:31 | disposition home or self-care (01) ==
LOC: HO.10HDL 11:30
PROVIDERS: Visit Provider Internal Medicine
DX: M35.3 Polymyalgia rheumatica (principal); E03.9 Hypothyroidism, unspecified; R53.83 Other fatigue; K21.9 Gastro-esophageal reflux disease without esophagitis
CPT/HCPCS: 36415; 80053; 82607; 84439; 84443; 85025; 85652; 86140

== ENCOUNTER 2024-01-28 14:23 | Outpatient (AMB) | payer MEDICARE, SELFPAY ==
--- NOTE | 2024-01-28 14:29 | MHC.OFFVIS ---
Intake Vital Signs 01/28/24 14:35 Height 5 ft Weight 171 lb 8.314 oz BMI 33.5 BP 114/64 Blood Pressure Location Rt brachial Position Sitting Pulse 89 Pulse Source Pulse Oximeter Pulse Oximetry (%) 95 Oxygen Delivery Method Room Air Intake Visit Reasons: PMR Intake Note: Patient last seen by Dr Layne on 08/06/23 presents today for follow up. Reports being seen [facility] [place] [facility] for vertigo. C/o pain all the time, reports taking prednisone 5mg tid. Tight Barrel Inspector Required: No Accompanied by: Self / Same As Patient Allergies naproxen [NAPROXEN] Allergy (Intermediate, Verified 01/28/24 14:46) BLISTERS IN MOUTH Sulfa (Sulfonamide Antibiotics) [SULFA (SULFONAMIDE ANTIBIOTICS)] Allergy (Intermediate, Verified 01/28/24 14:46) BLISTERS ON TONGUE Medication List - Last Reconciled 01/28/24 by Kaci Marmolejo MD acetaminophen ER (Mapap Arthritis Pain) 1 tab PO Q8H PRN albuterol sulfate 90 mcg/actuation (ProAir HFA) 2 puffs inhalation Q6H PRN cholecalciferol (vitamin D3) (Vitamin D3) 25 mcg PO DAILY fexofenadine 180 mg PO DAILY fluticasone propionate 50 mcg/actuation (Allergy Relief (fluticasone)) 1 spray intranasal DAILY folic acid 1 mg PO DAILY hydrochlorothiazide 25 mg PO DAILY levothyroxine 25 mcg PO DAILY magnesium oxide 400 mg PO DAILY metoprolol tartrate 12.5 mg (1/2 x 25 mg) PO BID omeprazole 20 mg PO DAILY@0630 polyvinyl alcohol 1.4% (Artificial Tears (polyvinyl alcohol)) 2 drps ophthalmic (eye) Q4H PRN potassium chloride ER 10 mEq PO DAILY prednisone 2.5 mg PO TID sertraline 25 mg PO DAILY simvastatin 20 mg PO DAILY HPI HPI Comments History of Present Illness Details This is an 83-year-old female with PMR/seronegative RA who returns for follow-up. This is her 1st visit with me. She used to follow-up with Dr. Layne for many years. She states that she remains on prednisone 2.5 mg t.i.d.. She states that it does not provide much pain relief. She states that when it was lowered by Dr. Layne last visit from 10 mg daily to 7.5 mg daily pain has been worse. She states that Tylenol helps more than prednisone. She would like to come off the prednisone as it causes weight gain. Most recent history by Dr. Layne 07/2023: The patient returns for evaluation of her PMR, osteoarthritis and osteoporosis. She remains on prednisone at 10 mg daily. She again complains of pain in the right shoulder. I had injected the shoulder back in March. She wants another injection today although she admits she only had about 5 or 6 weeks of benefit with the previous injection. There is knee pain when she walks. This is a difficult for her on stairs. She has some back pains and hand pains as well. Those areas seem to get worse with physical activity. I had wanted to have her see Orthopedics about the shoulder. MRI and consult was ordered but she missed the appointments because she was hospitalized. Her breathing seems to be stable at this point. She is getting more frequent heartburn. She is already on omeprazole. In the past she had been on alendronate and could not remember whether bothered her stomach but it looks like she is having more reflux at present. [facility] Medical History Dyspnea on exertion Bronchitis Hyperlipidemia Hypertension Polymyalgia rheumatica Surgical History Hx of cholecystectomy Hx of hysterectomy Family History Mother CHF (congestive heart failure) Social History Household Members: Spouse Housing: House Do you presently have visiting nurse or other home services: No Alcohol intake: current Alcohol intake frequency: holidays/special occasions only Patient Tobacco Use Status: Former Tobacco user Tobacco use type: Cigarette Cigarettes Per Day: 15 Years Smoked: 4 e-Cigarette/Vaping Use: Never Used Second Hand Smoke Exposure: No Substance Use Type: Marijuana service: No Current occupational status: retired Review of Systems [facility] Reports arthralgias and Reports stiffness Physical Exam Vital Signs: Last Vital Signs Pulse 89 01/28/24 14:35 BP 114/64 01/28/24 14:35 Pulse Ox 95 01/28/24 14:35 Oxygen Delivery Method Room Air 01/28/24 14:35 BMI result Body Mass Index 33.5 Const General: cooperative, healthy appearing and comfortable Nutritional Appearance: obese Orientation/consciousness: patient oriented x3 HEENT Head: Yes normocephalic and Yes atraumatic Mouth: moist mucous membranes Resp Effort & Inspection: normal respiratory effort and able to speak in complete sentences Skin Other: Dry skin. Few superficial bruises Neuro General: patient oriented x3 Extrem Other: Mild swelling of left 2nd MCP but no tenderness Normal range of motion of shoulders Assessment & Plan Assessment & Plan (1) Polymyalgia rheumatica: Comment: some small joint synovitis as well RF/CCP/MARK negative; HCQ started 10/23; eye exam OK 11/24, 09/27, 05/29, 05/30 MTX added 03/27 thru 10/29, remained on hydroxychloroquine Patient stopped hydroxychloroquine due to headaches, ? Blurry vision Code(s): M35.3 - Polymyalgia rheumatica Plan: This is an 83-year-old female with PMR/seronegative RA who presents for follow-up. This is her 1st visit with me. She used to follow-up with Dr. Layne. Patient remains on prednisone 2.5 mg t.i.d. we will reduce it to 2.5 mg Twice daily. Labs before next visit in 6 weeks (2) Osteoporosis: Comment: Jul 2010 BMD T scores -1.9 in LS spine and hip. Alendronate ? Caused hip pain and stomach ache? Restarted February 2016 thru 2019 T scores: 11/2020: femur -1.4, fem neck -2.5, LS -1.6 08/2023: fem -1.4, fem neck -2.4, LS -1.5 Code(s): M81.0 - Age-related osteoporosis without current pathological fracture Qualifiers: Osteoporosis type: age-related Presence of current pathological fracture: without current pathological fracture Qualified Code(s): M81.0 - Age-related osteoporosis without current pathological fracture Plan: Patient states that she is taking alendronate regularly Plan I spent 30 minutes reviewing patient's chart, evaluating patient, ordering diagnostic workup, counseling patient and documenting in the chart Orders: Orders Complete Blood Count Auto Diff 6 Weeks M35.3 - Polymyalgia rheumatica C Reactive Protein 6 Weeks M35.3 - Polymyalgia rheumatica Comprehensive Met. Panel 6 Weeks M35.3 - Polymyalgia rheumatica Erythrocyte Sedimentation Rate 6 Weeks M35.3 - Polymyalgia rheumatica Hepatitis A,B,C Profile 6 Weeks Z11.59 - Encounter for screening for other viral diseases T Spot TB 6 Weeks Z11.7 - Encounter for testing for latent tuberculosis infection Immunofixation Pnl, Serum 6 Weeks M35.3 - Polymyalgia rheumatica Protein Electrophoresis, Serum 6 Weeks M35.3 - Polymyalgia rheumatica Medications: Changed From prednisone 2.5 mg PO TID 90 tabs 0RF To prednisone 2.5 mg PO BID 60 tabs 1RF Coding Level of Care Code Est Pt Level 4 (10529) Diagnoses Polymyalgia rheumatica M35.3 Age-related osteoporosis without current pathological fracture M81.0 Osteoporosis type: age-related Presence of current pathological fracture: without current pathological fracture
[2024-01-28 14:35] VITALS: BP 114/64; PULSE 89; O2SAT 95; BMI 33.5
== END 2024-01-28 15:20 | disposition home or self-care (01) ==
PROVIDERS: PCP Internal Medicine; Visit Provider Student in an Organized Health Care Education/Training Program
DX: M35.3 Polymyalgia rheumatica (principal); M81.0 Age-related osteoporosis without current pathological fracture
CPT/HCPCS: 99214

== ENCOUNTER → 2024-01-28 14:23 | Outpatient (BNVA) | payer MEDICARE, SELFPAY | PROVIDERS: PCP Internal Medicine; Visit Provider Student in an Organized Health Care Education/Training Program | DX: M35.3 Polymyalgia rheumatica (principal); M81.0 Age-related osteoporosis without current pathological fracture | CPT/HCPCS: 99212 ==

== ENCOUNTER 2024-03-12 10:52 | Outpatient (REF) | payer MEDICARE, SELFPAY ==
[2024-03-12 12:35] LABS: Anion Gap 17 (12-20); Blood Urea Nitrogen 12 mg/dL (9-16); Carbon Dioxide 26 mmol/L (22-29); Chloride 102 mmol/L (96-108); Estimated Glomerular Filt Rate > 60; Magnesium 1.5 mg/dL (1.6-2.6); Potassium 3.1 mmol/L (3.3-5.1); Sodium 142 mmol/L (135-145)
== END 2024-03-12 10:53 | disposition home or self-care (01) ==
LOC: HO.LAB 10:52
PROVIDERS: Absent Provider Internal Medicine; PCP Internal Medicine; Visit Provider Family Medicine
DX: I10 Essential (primary) hypertension (principal); R60.9 Edema, unspecified
CPT/HCPCS: 36415; 80051; 82565; 83735; 84520

== ENCOUNTER 2024-03-24 12:25 | Outpatient (REF) | payer MEDICARE, SELFPAY ==
[2024-03-24 13:54] LABS: Alanine Aminotransferase 9 U/L (0-31); Alkaline Phosphatase 52 U/L (39-117); Anion Gap 15 (12-20); Aspartate Amino Transferase 15 U/L (5-31); Bilirubin Total 0.4 mg/dL (0.0-1.0); Blood Urea Nitrogen 18 mg/dL (9-16); Calcium 9.8 mg/dL (8.4-10.2); Carbon Dioxide 28 mmol/L (22-29); Chloride 97 mmol/L (96-108); Estimated Glomerular Filt Rate > 60; Glucose Random 94 mg/dL (60-115); Potassium 3.2 mmol/L (3.3-5.1); Sodium 137 mmol/L (135-145); Total Protein 6.7 g/dL (6.5-8.0)
[2024-03-24 14:14] LABS: Free T4 (Free Thyroxine) 1.04 ng/dL (0.71-1.85); Thyroid Stimulating Hormone 2.67 uIU/mL (0.32-4.0)
== END 2024-03-24 12:26 | disposition home or self-care (01) ==
LOC: HO.10HDL 12:25
PROVIDERS: Visit Provider Internal Medicine
DX: I10 Essential (primary) hypertension (principal); J44.9 Chronic obstructive pulmonary disease, unspecified; K21.9 Gastro-esophageal reflux disease without esophagitis; E03.9 Hypothyroidism, unspecified
CPT/HCPCS: 36415; 80053; 84439; 84443

== ENCOUNTER 2024-04-29 09:14 | Outpatient (REF) | payer MEDICARE, SELFPAY ==
--- NOTE | ~2024-04-29 | XR_ITS ---
EXAMINATION: XR KNEE, LEFT CLINICAL INFORMATION: Left knee pain COMPARISON: None available. TECHNIQUE: Four views of the left knee. FINDINGS: Medial compartment narrowing with small marginal osteophytes. No joint effusion. No fracture. XR/XR knee LT 4V IMPRESSION: Mild medial compartment osteoarthritis.
== END 2024-04-29 09:15 | disposition home or self-care (01) ==
LOC: HO.XRAY 09:14
PROVIDERS: PCP Internal Medicine; Visit Provider Internal Medicine
DX: M25.562 Pain in left knee (principal)
CPT/HCPCS: 73564

== ENCOUNTER 2024-04-30 08:49 | Emergency (ER) | payer MEDICARE, SELFPAY ==
[2024-04-30 08:57] VITALS: BP 139/77; PULSE 86; RESP 18; TEMP 36.6; O2SAT 98; BMI 31.4
--- NOTE | 2024-04-30 09:11 | ED.GENADULT ---
HPI - General Adult General Chief complaint: General Medical Stated complaint: Allergic Reaction Bee Sting 04/29/24 Time Seen by Provider: 04/30/24 09:08 Source: patient Mode of arrival: ambulatory Limitations: no limitations History of Present Illness ED Provider: Lisa Toscano PA-C HPI narrative: Patient is an 83 year old assigned female at with a history of CAD and polymyalgia rheumatica, presenting to the emergency department today with left 4th finger swelling. Patient states that yesterday she was stung on her left 4th finger by a bee. Patient states that she has never been stung before so she wasn't sure if she was allergic to it. Patient denies any dizziness, lightheadedness, abdominal pain, nausea, vomiting, fever, chills, blurry vision, double vision, loss of vision, chest pain, difficulty breathing, shortness of breath, back pain, night sweats, pain with urination, increased urinary frequency, increased urinary urgency, blood in her urine or stool, syncope or a near syncopal episode, bowel incontinence, bladder incontinence, or any other complaints at this time. Onset (ago): day(s) (1) Location: left and upper extremity (4th digit) Radiation: non-radiation Severity: mild Severity scale (1-10): 4 Quality: aching and dull Pain Consistency: constant Relieving factors: none Exacerbating factors: none Associated symptoms: denies other symptoms Treatments prior to arrival: none Related Data Home Medications ?Medication ?Instructions ?Recorded ?Confirmed fexofenadine 180 mg tablet 180 mg PO DAILY 04/13/21 01/28/24 fluticasone propionate 50 1 spray intranasal DAILY 04/13/21 01/28/24 mcg/actuation nasal spray,suspension (Allergy Relief (fluticasone)) omeprazole 20 mg capsule,delayed 20 mg PO DAILY@0630 04/13/21 01/28/24 release simvastatin 20 mg tablet 20 mg PO DAILY 04/13/21 01/28/24 hydrochlorothiazide 25 mg tablet 25 mg PO DAILY 04/09/22 01/28/24 folic acid 1 mg tablet 1 mg PO DAILY 11/28/22 01/28/24 acetaminophen 650 mg 1 tab PO Q8H PRN pain 12/07/22 01/28/24 tablet,extended release (Mapap Arthritis Pain) cholecalciferol (vitamin D3) 25 25 mcg PO DAILY 12/07/22 01/28/24 mcg (1,000 unit) tablet (Vitamin D3) magnesium oxide 400 mg (241.3 mg 400 mg PO DAILY 12/07/22 01/28/24 magnesium) tablet levothyroxine 25 mcg tablet 25 mcg PO DAILY 03/31/23 01/28/24 potassium chloride 10 mEq 10 meq PO DAILY 03/31/23 01/28/24 tablet,extended release sertraline 25 mg tablet 25 mg PO DAILY 08/06/23 01/28/24 Previous Rx's ?Medication ?Instructions ?Recorded albuterol sulfate 90 mcg/actuation 2 puff inhalation Q6H PRN 12/11/22 aerosol inhaler (ProAir HFA) Shortness Of Breath Or Wheezing #8.5 grams metoprolol tartrate 25 mg tablet 12.5 mg (1/2 x 25 mg) PO BID #30 12/11/22 tabs polyvinyl alcohol 1.4 % eye drops 2 drp ophthalmic (eye) Q4H PRN dry 12/11/22 (Artificial Tears (polyvinyl eye #15 mL alcohol)) prednisone 2.5 mg tablet 2.5 mg PO BID #60 tabs 04/05/24 Allergies Allergy/AdvReac Type Severity Reaction Status Date / Time naproxen [NAPROXEN] Allergy Intermediate BLISTERS Verified 04/30/24 08:58 IN MOUTH Sulfa (Sulfonamide Allergy Intermediate BLISTERS Verified 04/30/24 08:58 Antibiotics) ON TONGUE [SULFA (SULFONAMIDE ANTIBIOTICS)] Review of Systems Constitutional: Constitutional: Reports no additional constitutional complaints, Denies chills, Denies fever(s) and Denies night sweats Eyes: Eyes: Reports no additional eye complaints, Denies blurry vision, Denies change in vision, Denies diplopia, Denies eye discharge, Denies loss of vision and Denies eye pain ENT: Denies dizziness Cardiovascular: Cardiovascular: Reports no additional cardiovascular complaints, Denies chest pain, Denies lightheadedness, Denies Loss of Consciousness and Denies dyspnea Respiratory: Respiratory: Reports no additional respiratory complaints and Denies dyspnea Gastrointestinal: Gastrointestinal: Reports no additional gastrointestinal complaints, Denies abdominal pain, Denies melena, Denies hematochezia, Denies change in bowel habits and Denies change in stool character Genitourinary: Genitourinary: Denies hematuria, Denies urinary frequency, Denies dysuria, Denies urinary incontinence, Denies urinary hesitancy and Denies urinary urgency Musculoskeletal: Musculoskeletal: Reports no additional musculoskeletal complaints, Denies numbness and Denies tingling Comments: left 4th finger pain Neurologic: Denies dizziness, Denies loss of vision, Denies numbness and Denies tingling Psychiatric: Psychiatric: Reports no additional psychiatric complaints Endocrine: Endocrine: Reports no additional endocrine complaints Hematologic/Lymphatic: Hematologic/Lymphatic: Reports no additional hematologic/lymphatic complaints Allergic/Immunologic: Allergic/Immunologic: Reports no additional allergic/immunologic complaints PMFSH Past Medical History Attestation statement: The following information was validated with the patient. Source: old records reviewed and nursing notes reviewed Medical History Dyspnea on exertion Bronchitis Hyperlipidemia Hypertension Polymyalgia rheumatica Surgical History Hx of cholecystectomy Hx of hysterectomy Family History Family History Mother CHF (congestive heart failure) Social History Social History Household Members: Spouse Housing: House Do you presently have visiting nurse or other home services: No Alcohol intake: current Alcohol intake frequency: holidays/special occasions only Patient Tobacco Use Status: Former Tobacco user Tobacco use type: Cigarette Cigarettes Per Day: 15 Years Smoked: 4 e-Cigarette/Vaping Use: Never Used Second Hand Smoke Exposure: No Substance Use Type: Marijuana Advance Directives: Yes Advance Directives on File: Yes Advance Directives Date on File: 11/24/23 service: No Current occupational status: retired Physical Exam ED Vital Signs: Vital Signs - 24 hr 04/30/24 08:57 04/30/24 10:04 04/30/24 10:04 Temperature 98 F 98.4 F 98.4 F Pulse Rate 86 80 80 Respiratory Rate 18 18 18 Blood Pressure 139/77 135/77 135/77 Pulse Oximetry 98 98 98 Oxygen Delivery Method Room Air Room Air Room Air BMI result Body Mass Index 31.4 Const General: cooperative, no acute distress, alert and awake Nutritional Appearance: well nourished Orientation/consciousness: patient oriented x3 Limitations: no limitations HENMT Head: Yes normal to inspection and Yes atraumatic Ears: hearing grossly normal bilaterally and external ears normal General nose exam: Normal external nose present, no nasal discharge noted and no epistaxis Face and sinus: Yes normal facial exam, No abrasion and No laceration Mouth: Normal oral and palatal mucosa present, no drooling and no muffled voice Eyes General: appearance normal, both eyes and all related structures Periorbital: periorbital findings normal Eyelids: Yes eyelids normal Conjunctivae: conjunctivae normal Pupils: Equal, round and reactive pupils present EOM: EOMs intact bilaterally Neck Neck: Yes normal visual inspection, Yes full ROM and Yes no lymphadenopathy Chest Chest palpation & inspection: normal inspection of the chest Resp Effort & Inspection: normal respiratory effort and able to speak in complete sentences GI Inspection: Yes normal to inspection Neuro General: patient oriented x3 and moves all extremities Cranial nerves: Yes Equal, round and reactive pupils present Cognition (Neuro): normal cognition Extrem Other: left 4th finger swelling, erythema, bruising General: Yes full ROM and Yes capillary refill normal Psych Appearance: grossly normal Mental Status: mental status grossly normal Affect: normal affect Attitude: cooperative Thought process: Normal thought process present Thought content: Normal thought content present Insight: Good insight present (Psych) Medical Decision Making Medical Decision Making MDM Narrative: Patient is a 83 year old assigned female at with a history of CAD and polymyalgia rheumatica presenting to the emergency department today with a left 4th finger injury. Patient's physical exam was as noted in the physical exam portion of this note. I consulted with my attending physician, Dr. Yadav, who confirmed that the patient's physical exam findings are consistent with a localized allergic reaction. I explained my physical exam findings to the patient. I answered all questions asked by the patient. I stressed the importance of the patient taking her medication as directed (either prescribed or as the over the counter packaging recommends). I stressed the importance of the patient following up with her primary care provider. I stressed the importance of the patient returning to the emergency department immediately if her symptoms were to worsen or if she were to develop any dizziness, shortness of breath, difficulty breathing, chest pain, blurry vision, loss of vision, nausea, vomiting, abdominal pain, fever, chills, back pain, or any other complaints. Patient verbalized agreement and understanding with this treatment plan and discharge. Differential Diagnosis Differential Diagnoses: The differential diagnosis associated with the presentation includes Finger injury Localized allergic reaction Admission/Observation Consideration of admission/observation: Escalation of care including admission/observation considered Patient would have been admitted to the hospital had her clinical presentation warranted hospital admission. Discharge Plan Discharge Clinical Impression: Allergic reaction Patient Disposition: Home, Self-Care Instructions: General Allergic Reaction (ED) Additional Instructions: Benadryl is safe to take with your current medication regimen. Follow up with your primary care provider. Return to the emergency department immediately if your symptoms worsen or if you develop any dizziness, shortness of breath, difficulty breathing, chest pain, blurry vision, loss of vision, nausea, vomiting, abdominal pain, fever, chills, back pain, or any other complaints. Prescriptions: No Action prednisone 2.5 mg tablet 2.5 mg PO BID Qty: 60 1RF acetaminophen [Mapap Arthritis Pain] 650 mg tablet extended release 1 tab PO Q8H PRN (Reason: pain) magnesium oxide 400 mg (241.3 mg magnesium) Tablet 400 mg PO DAILY cholecalciferol (vitamin D3) [Vitamin D3] 25 mcg (1,000 unit) Tablet 25 mcg PO DAILY polyvinyl alcohol [Artificial Tears (polyvin alc)] 1.4 % Drops 2 drp ophthalmic (eye) Q4H PRN (Reason: dry eye) Qty: 15 0RF albuterol sulfate [ProAir HFA] 90 mcg/actuation HFA aerosol inhaler 2 puff inhalation Q6H PRN (Reason: Shortness Of Breath Or Wheezing) Qty: 8.5 0RF metoprolol tartrate 25 mg tablet 12.5 mg PO BID Qty: 30 0RF omeprazole 20 mg capsule,delayed release(DR/EC) 20 mg PO DAILY@0630 fexofenadine 180 mg tablet 180 mg PO DAILY fluticasone propionate [Allergy Relief (fluticasone)] 50 mcg/actuation spray,suspension 1 spray intranasal DAILY Rx Instructions: administer into each nostril simvastatin 20 mg tablet 20 mg PO DAILY hydrochlorothiazide 25 mg tablet 25 mg PO DAILY folic acid 1 mg tablet 1 mg PO DAILY levothyroxine 25 mcg tablet 25 mcg PO DAILY potassium chloride 10 mEq tablet extended release 10 meq PO DAILY sertraline 25 mg tablet 25 mg PO DAILY Referrals: Ismael Davis MD [Primary Care Provider] - Interventions: ED Discharge Assessment Last Done: 04/30/24 10:04 Discharge Date/Time: 04/30/24 10:05 Print Language: Cameroonian
[2024-04-30 10:04] VITALS: BP 135/77; PULSE 80; RESP 18; TEMP 36.9; O2SAT 98
== END 2024-04-30 10:05 | disposition home or self-care (01) ==
PROVIDERS: Emergency Provider Student in an Organized Health Care Education/Training Program; PCP Internal Medicine
DX: M79.645 Pain in left finger(s) (principal); T63.441A Toxic effect of venom of bees, accidental (unintentional), initial encounter; Y92.009 Unspecified place in unspecified non-institutional (private) residence as the place of occurrence of the external cause
CPT/HCPCS: 99282; 99284

== ENCOUNTER 2024-07-11 10:00 | Emergency (ER) | payer MEDICARE, SELFPAY ==
--- NOTE | ~2024-07-11 | XR_ITS ---
EXAMINATION: XR LUMBOSACRAL SPINE CLINICAL INFORMATION: Pain for one week COMPARISON: None available. TECHNIQUE: Three views of the lumbosacral spine. FINDINGS: There is no fracture. L4-L5 there is severe degenerative disc changes with grade 1-2 anterolisthesis likely secondary to degenerative change. Facet arthrosis noted posteriorly. Additional multilevel degenerative disc changes with disc space narrowing and minimal endplate osteophytes at the L2-L3 and L3-L4 levels. At L3-L4 and there is minimal anterolisthesis likely with posterior facet arthrosis noted. Additional facet arthrosis at the L5-S1 level. Prominent arterial calcification of the abdominal aorta Surrounding bone and soft tissues unremarkable. XR/XR lumbar spine 2-3V IMPRESSION: Multilevel spondylosis of the lumbosacral spine with grade 1-2 anterolisthesis at the L4-L5 level likely secondary to degenerative change. No acute abnormality Electronically signed by: Zhang Story MD 07/11/2024 11:00 AM EDT
[2024-07-11 10:09] VITALS: BP 138/52; PULSE 79; RESP 18; TEMP 36.4; O2SAT 97; BMI 30.7
--- NOTE | 2024-07-11 11:24 | ED.GENADULT ---
HPI - General Adult General Chief complaint: Back Pain/Injury Stated complaint: back pain Time Seen by Provider: 07/11/24 11:23 Source: patient Mode of arrival: ambulatory Limitations: no limitations History of Present Illness ED Provider: Ambreen BAGLEY narrative: Patient is an 83-year-old female with history of afib not on anticoagulation, CAD, polymyalgia rheumatica on bed bug exterminator steroids, osteoarthritis, osteoporosis presenting to the ED with complaint of lower back pain for the past week. Reports history of similar pain in the past. States pain radiates down left leg to foot and down right leg to knee. Had two days where she felt pain began to improve, then she was sitting on a chair to clean out the refrigerator, and the pain worsened again. Denies recent falls or other trauma. Denies weakness, numbness, tingling to legs. Denies saddle anesthesia or bowel or bladder incontinence. Denies fevers. Denies chest pain, palpitations, shortness of breath. Taking Tylenol with little relief. Has been unable to lay supine in bed and has been sleeping in recliner for past few nights. States when pain began it was under left buttock. Denies urinary symptoms or flank pain. MD complaint: back pain Onset (ago): week(s) Location: back Radiation: distal Severity: severe and similar to prior episodes Quality: burning Pain Consistency: constant Relieving factors: rest Exacerbating factors: movement Associated symptoms: denies other symptoms Treatments prior to arrival: other Related Data Home Medications ?Medication ?Instructions ?Recorded ?Confirmed fexofenadine 180 mg tablet 180 mg PO DAILY 04/13/21 01/28/24 fluticasone propionate 50 1 spray intranasal DAILY 04/13/21 01/28/24 mcg/actuation nasal spray,suspension (Allergy Relief (fluticasone)) omeprazole 20 mg capsule,delayed 20 mg PO DAILY@0630 04/13/21 01/28/24 release simvastatin 20 mg tablet 20 mg PO DAILY 04/13/21 01/28/24 hydrochlorothiazide 25 mg tablet 25 mg PO DAILY 04/09/22 01/28/24 folic acid 1 mg tablet 1 mg PO DAILY 11/28/22 01/28/24 acetaminophen 650 mg 1 tab PO Q8H PRN pain 12/07/22 01/28/24 tablet,extended release (Mapap Arthritis Pain) cholecalciferol (vitamin D3) 25 25 mcg PO DAILY 12/07/22 01/28/24 mcg (1,000 unit) tablet (Vitamin D3) magnesium oxide 400 mg (241.3 mg 400 mg PO DAILY 12/07/22 01/28/24 magnesium) tablet levothyroxine 25 mcg tablet 25 mcg PO DAILY 03/31/23 01/28/24 potassium chloride 10 mEq 10 meq PO DAILY 03/31/23 01/28/24 tablet,extended release sertraline 25 mg tablet 25 mg PO DAILY 08/06/23 01/28/24 Previous Rx's ?Medication ?Instructions ?Recorded albuterol sulfate 90 mcg/actuation 2 puff inhalation Q6H PRN 12/11/22 aerosol inhaler (ProAir HFA) Shortness Of Breath Or Wheezing #8.5 grams metoprolol tartrate 25 mg tablet 12.5 mg (1/2 x 25 mg) PO BID #30 12/11/22 tabs polyvinyl alcohol 1.4 % eye drops 2 drp ophthalmic (eye) Q4H PRN dry 12/11/22 (Artificial Tears (polyvinyl eye #15 mL alcohol)) prednisone 2.5 mg tablet 2.5 mg PO BID #60 tabs 06/07/24 cefpodoxime 200 mg tablet 200 mg PO Q12H #20 tabs 07/11/24 lidocaine 5 % topical patch 1 patch topical DAILY #15 ea 07/11/24 tizanidine 2 mg tablet 2 mg PO BEDTIME #5 tabs 07/11/24 Allergies Allergy/AdvReac Type Severity Reaction Status Date / Time naproxen [NAPROXEN] Allergy Intermediate BLISTERS Verified 07/11/24 10:09 IN MOUTH Sulfa (Sulfonamide Allergy Intermediate BLISTERS Verified 07/11/24 10:09 Antibiotics) ON TONGUE [SULFA (SULFONAMIDE ANTIBIOTICS)] Review of Systems Review of Systems: As per HPI. Yes all other systems are reviewed and are negative Constitutional: Constitutional: Reports as per HPI PMF Past Medical History Medical History Dyspnea on exertion Bronchitis Hyperlipidemia Hypertension Polymyalgia rheumatica Surgical History Hx of cholecystectomy Hx of hysterectomy Family History Family History Mother CHF (congestive heart failure) Social History Social History Household Members: Spouse Housing: House Do you presently have visiting nurse or other home services: No Alcohol intake: current Alcohol intake frequency: holidays/special occasions only Patient Tobacco Use Status: Former Tobacco user Tobacco use type: Cigarette Cigarettes Per Day: 15 Years Smoked: 4 e-Cigarette/Vaping Use: Never Used Second Hand Smoke Exposure: No Substance Use Type: Marijuana Advance Directives: No Advance Directives Information Provided: No Advance Directives Date on File: 11/24/23 Do you have a plan to hurt others: No Plan service: No Current occupational status: retired Physical Exam ED Vital Signs: Vital Signs - 24 hr 07/11/24 10:09 07/11/24 12:25 Temperature 97.6 F 97.5 F Pulse Rate 79 61 Respiratory Rate 18 14 Blood Pressure 138/52 L 139/58 L Pulse Oximetry 97 98 Oxygen Delivery Method Room Air Room Air BMI result Body Mass Index 30.7 Vital signs have been reviewed and appear to be correct. Blood pressure normal. Heart rate normal. Respiratory rate normal. Temperature normal. Oxygen saturation normal. Const General: cooperative, healthy appearing and no acute distress Orientation/consciousness: oriented to person, oriented to place, oriented to time and patient oriented x3 Limitations: no limitations HENMT Head: Yes normocephalic and Yes atraumatic Ears: external ears normal General nose exam: Normal external nose present Face and sinus: Yes face symmetric Mouth: oropharynx normal and moist mucous membranes Throat: Yes uvula midline Eyes Pupils: Equal, round and reactive pupils present Neck Neck: Yes normal visual inspection and Yes supple Resp Effort & Inspection: normal respiratory effort and able to speak in complete sentences Auscultation: clear to auscultation bilaterally Cardio Rate: regular rate Rhythm: regular rhythm Heart sounds: S1 normal heart sound present and S2 normal heart sound present GI Palpation (GI): Soft to palpation and nontender Auscultation: normoactive bowel sounds General: Yes no CVA tenderness Back/Spine/Pelvis Back: no CVA tenderness Cervical Spine: normal cervical lordosis and cervical ROM normal Thoracic/Lumbar Spine: thoracic and lumbar spine normal to inspection, straight leg raise negative bilaterally, pain with thoraco-lumbar ROM, paraspinal muscle tenderness bilaterally in the lower lumbar and thoraco-lumbar ROM limited (due to pain) with lateral flexion to the right and with lateral flexion to the left Skin General skin exam: elasticity normal and turgor normal Neuro General: oriented to person, oriented to place, oriented to time, patient oriented x3, gait normal, tone normal, moves all extremities, Normal light touch and pain sensation, no focal motor deficits, CN's II-XI intact bilaterally and deep tendon reflexes 2+ bilaterally Cranial nerves: Yes Equal, round and reactive pupils present Cognition (Neuro): normal cognition Motor exam (neuro): 5/5 motor strength present throughout, Normal motor muscle tone present throughout and Motor abnormalities not present Extrem General: Yes full ROM, Yes no pedal edema and Yes no calf tenderness Right lower extremity: foot Details: vascular exam Details: dorsalis pedis pulse present, posterior tibial pulse present and normal capillary refill Left lower extremity: foot Details: vascular exam Details: dorsalis pedis pulse present, posterior tibial pulse present and normal capillary refill Psych Mental Status: mental status grossly normal Affect: normal affect Thought process: Normal thought process present Medications Administered Discontinued Medications Generic Name Dose Route Start Last Admin Trade Name Freq PRN Reason Stop Dose Admin Lidocaine 2 patch 07/11/24 11:43 07/11/24 12:00 Lidocaine 4 % Patch Adh..Patch TRANSDERMA 07/11/24 11:44 2 patch ONCE ONE Administration Protocol Tizanidine HCl 4 mg 07/11/24 11:43 07/11/24 11:59 Tizanidine Hcl 4 Mg Tablet PO 07/11/24 11:44 4 mg ONCE ONE Administration Medical Decision Making Medical Decision Making [facility] Narrative: Patient is an 83-year-old female with history of afib not on anticoagulation, CAD, polymyalgia rheumatica on bed bug exterminator steroids, osteoarthritis, osteoporosis presenting to the ED with complaint of lower back pain for the past week. On exam patient is awake, A+Ox3, VS WNL, afebrile, normal neurological exam without focal deficits, physical exam findings as above. Given reported symptoms and physical exam findings, initial differential includes lumbar radiculopathy, lumbar strain, acute exacerbation of PMR, degenerative disc disease, disc herniation, spinal stenosis, spondylosis. Less likely vertebral fracture. Do not suspect malignancy/mass, SEA, cauda equina/cord compression, aortic dissection. X-ray lumbar spine notable for multilevel spondylosis with grade 1-2 anterolisthesis at L4/5. My interpretation is in agreement with the radiologist's interpretation. Urinalysis notable for 3+ leukocytes, >50WBCs, WBC clumps present, will treat with cefpodoxime. Patient reports improvement in pain after medications given in the ED. Discussed with patient that we will treat with tizanidine at bedtime only, as this can cause drowsiness. aware of this side effect and states will monitor patient closely at home. Will also treat with lidocaine patches. Follow up with PCP. Return precautions discussed. Patient verbalized understanding of and agreement with plan. Differential Diagnosis Differential Diagnoses: The differential diagnosis associated with the presentation includes As per [facility] Lab Data [facility] Lab Attestation statement: I reviewed the patient's lab results. As per [facility] Labs: Lab Results 07/11/24 Range/Units 11:43 Urine Color Dark Yellow Urine Appearance Cloudy Urine pH 5.0 (5.0-9.0) Ur Specific [place] >= 1.030 H (1.005-1.025) Urine Protein Negative (Neg-Trace) mg/dL Urine Glucose (UA) Negative (Negative) mg/dL Urine Ketones Trace (Negative) mg/dL Urine Blood Negative (Negative) Urine Nitrite Negative (Negative) Ur Leukocyte Esterase Large (3+) H (Negative) Urine RBC 0-2 (0-2) /HPF Urine WBC >50 H (0-5) /HPF Urine WBC Clumps Present Ur Squamous Epith Cells 0-2 (0-2) /HPF Urine Bacteria Trace (None Seen) Hyaline Casts 0-2 (0-2) /LPF Independent Interpretation I performed an independent interpretation of an: Plain X-Ray Interpretation: X-ray lumbar spine notable for multilevel spondylosis with grade 1-2 anterolisthesis at L4/5. Radiology Impression Discussion of test interpretation with radiology: I have reviewed the radiologist's reading. Radiologist Impression: XR/XR lumbar spine 2-3V IMPRESSION: Multilevel spondylosis of the lumbosacral spine with grade 1-2 anterolisthesis at the L4-L5 level likely secondary to degenerative change. No acute abnormality External Record Review External record reviewed: Inpatient record, Office record and Outpatient record Prescription Management I considered prescription management with: Pain Medication, Antibiotic and Other Discharge Plan Discharge Clinical Impression: Pyelonephritis, Lumbar radiculopathy Patient Disposition: Home, Self-Care Instructions: Kidney Infection (ED), Acute Low Back Pain (ED), Lumbar Radiculopathy (ED) Additional Instructions: You have been evaluated in the emergency department today for back pain. Your evaluation, including urinalysis, suggests that your symptoms are due in part to a kidney infection, also known as pyelonephritis. Please take your prescribed antibiotics for the full course of medication as directed. You are also being prescribed a muscle relaxer to take at bedtime only. You are being prescribed topical lidocaine patches which you can wear during the day for up to 12 hours in a 24 hour period. Please follow-up with your primary care provider within 2 days. Return to the emergency department if you experience fevers 100.4? F or greater, worsening or uncontrolled pain, vomiting, flank pain, or for any other concerning symptoms. Prescriptions: New tizanidine 2 mg tablet 2 mg PO BEDTIME Qty: 5 0RF lidocaine 5 % adhesive patch,medicated 1 patch topical DAILY Qty: 15 0RF Rx Instructions: leave on most painful area for up to 12 hrs cefpodoxime 200 mg tablet 200 mg PO Q12H Qty: 20 0RF Rx Instructions: must administer with a meal/food No Action prednisone 2.5 mg tablet 2.5 mg PO BID Qty: 60 0RF acetaminophen [Mapap Arthritis Pain] 650 mg tablet extended release 1 tab PO Q8H PRN (Reason: pain) magnesium oxide 400 mg (241.3 mg magnesium) Tablet 400 mg PO DAILY cholecalciferol (vitamin D3) [Vitamin D3] 25 mcg (1,000 unit) Tablet 25 mcg PO DAILY polyvinyl alcohol [Artificial Tears (polyvin alc)] 1.4 % Drops 2 drp ophthalmic (eye) Q4H PRN (Reason: dry eye) Qty: 15 0RF albuterol sulfate [ProAir HFA] 90 mcg/actuation HFA aerosol inhaler 2 puff inhalation Q6H PRN (Reason: Shortness Of Breath Or Wheezing) Qty: 8.5 0RF metoprolol tartrate 25 mg tablet 12.5 mg PO BID Qty: 30 0RF omeprazole 20 mg capsule,delayed release(DR/EC) 20 mg PO DAILY@0630 fexofenadine 180 mg tablet 180 mg PO DAILY fluticasone propionate [Allergy Relief (fluticasone)] 50 mcg/actuation spray,suspension 1 spray intranasal DAILY Rx Instructions: administer into each nostril simvastatin 20 mg tablet 20 mg PO DAILY hydrochlorothiazide 25 mg tablet 25 mg PO DAILY folic acid 1 mg tablet 1 mg PO DAILY levothyroxine 25 mcg tablet 25 mcg PO DAILY potassium chloride 10 mEq tablet extended release 10 meq PO DAILY sertraline 25 mg tablet 25 mg PO DAILY Print Language: Romansh
[2024-07-11 11:50] LABS: Appearance Urine Cloudy; Color Urine Dark Yellow; Glucose Urine UA Negative (Negative); Leukocyte Esterase Urine Large (3+) (Negative); Nitrite Urine Negative (Negative); Specific Gravity - Urine >= 1.030 (1.005-1.025); UMIC TRIGGER UACC YES; Urine Blood Negative (Negative); Urine Ketones Trace mg/dL (Negative); Urine Protein Negative (Neg-Trace)
[2024-07-11] MEDS: TiZANidine HCL 4 MG TABLET PO (11:59)
[2024-07-11] MEDS: Lidocaine 4 % Patch ADH..PATCH 2 PATCH TRANSDERMA (12:00)
[2024-07-11 12:05] LABS: Bacteria Urine Trace (None Seen); Hyaline Casts Urine 0-2 /LPF (0-2); RBC Urine 0-2 /HPF (0-2); Squamous Epithelial Cell Urine 0-2 /HPF (0-2); UACC Culture Trigger YES; WBC Clumps Urine Present; WBC Urine >50 /HPF (0-5)
[2024-07-11 12:25] VITALS: BP 139/58; PULSE 61; RESP 14; TEMP 36.4; O2SAT 98
[2024-07-11 13:14] VITALS: BP 139/58; PULSE 61; RESP 14; TEMP 36.4; O2SAT 98
== END 2024-07-11 13:18 | disposition home or self-care (01) ==
PROVIDERS: Registered Nurse Emergency; Emergency Provider Emergency Medicine Emergency Medical Services; PCP Internal Medicine
DX: N12 Tubulo-interstitial nephritis, not specified as acute or chronic (principal); M54.16 Radiculopathy, lumbar region; M54.50 Low back pain, unspecified; I25.10 Atherosclerotic heart disease of native coronary artery without angina pectoris; I48.91 Unspecified atrial fibrillation; Z79.899 Other long term (current) drug therapy; Z87.891 Personal history of nicotine dependence
CPT/HCPCS: 72100; 81001; 87086; 87088; 87186; 99283

== ENCOUNTER 2024-10-09 09:13 | Emergency (ER) | payer MEDICARE, SELFPAY ==
--- NOTE | ~2024-10-09 | CT_ITS ---
CLINICAL HISTORY: fall, pain, injury CT head without contrast Comparison: 11/19/23 Findings: No acute hemorrhage. No extra-axial fluid collection. No hydrocephalus, mass-effect or herniation. Alvarez-white differentiation is maintained. There is patchy hypoattenuation of the periventricular and deep white matter, which is most likely the sequela of moderate chronic small vessel ischemic disease and is similar to the prior study. No acute orbital pathology. No acute soft tissue abnormality. No fracture. The visualized paranasal sinuses are predominantly clear. The mastoid air cells are clear. Impression: No acute findings. This document has been electronically signed by: Velma Vallejo MD on 10/09/2024 14:04:59
--- NOTE | ~2024-10-09 | CT_ITS ---
CLINICAL HISTORY: fall, pain, injury CT thoracic spine without contrast Comparison: None Findings Mild scoliosis and mild multilevel anterolisthesis, degenerative. There is mild height loss T11 with a fracture line near the superior endplate. No retropulsion of fracture fragments or involvement of the posterior elements. Remote fracture of the left clavicle. Decreased bone mineralization. No severe spinal canal stenosis. No epidural hematoma. No acute soft tissue abnormality or acute findings in the visualized chest and abdomen. Impression: Acute mild compression fracture of T11. No retropulsion of fracture fragments or involvement of the posterior elements. This document has been electronically signed by: Velma Vallejo MD on 10/09/2024 13:57:23
--- NOTE | ~2024-10-09 | CT_ITS ---
CLINICAL HISTORY: fall, pain, injury CT cervical spine without contrast Comparison: 11/19/23 Findings: Mild multilevel anterolisthesis, degenerative. No acute fracture. Remote fracture of the left clavicle. Multilevel degenerative change is most prominent at C5/C6 with moderate to severe central spinal canal stenosis. No epidural hematoma. Normal thickness of the prevertebral soft tissues. Mild apical scarring with calcifications. Mild emphysematous changes Impression: No acute findings. This document has been electronically signed by: Velma Vallejo MD on 10/09/2024 13:45:27
[2024-10-09 09:28] VITALS: BP 148/70; PULSE 87; RESP 20; TEMP 36.2; O2SAT 99; BMI 30.9
--- NOTE | 2024-10-09 11:24 | ED_ITS ---
HPI - General Adult General Chief complaint: Fall Stated complaint: fall Time Seen by Provider: 10/09/24 11:24 Source: patient and family (patient's ) Mode of arrival: wheelchair Limitations: no limitations History of Present Illness ED Provider: Lisa Toscano PA-C HPI narrative: Patient is an 84 year old assigned female at with a history of osteoporosis, atrial fib, CAD, depression, and vertigo presenting to the emergency department today with head, neck, and back pain. Patient states that 3 weeks ago she got dizzy from her vertigo and fell in her hallway, hitting her h ead and injuring her back. Patient denies any loss of consciousness with the incident, dizziness, lightheadedness, abdominal pain, nausea, vomiting, fever, chills, blurry vision, double vision, loss of vision, chest pain, difficulty breathing, shortness of breath, night sweats, pain with urination, increased urinary frequency, increased urinary urgency, blood in her urine or stool, syncope or a near syncopal episode, bowel incontinence, bladder incontinence, or any other complaints at this time. Onset (ago): week(s) (3) Location: head, neck and back Relieving factors: none Exacerbating factors: none Associated symptoms: denies other symptoms Treatments prior to arrival: other (Tramadol from PCP) Related Data Home Medications ?Medication ?Instructions ?Recorded ?Confirmed fexofenadine 180 mg tablet 180 mg PO DAILY 04/13/21 01/28/24 fluticasone propionate 50 1 spray intranasal DAILY 04/13/21 01/28/24 mcg/actuation nasal spray,suspension (Allergy Relief (fluticasone)) omeprazole 20 mg capsule,delayed 20 mg PO DAILY@0630 04/13/21 01/28/24 release simvastatin 20 mg tablet 20 mg PO DAILY 04/13/21 01/28/24 hydrochlorothiazide 25 mg tablet 25 mg PO DAILY 04/09/22 01/28/24 folic acid 1 mg tablet 1 mg PO DAILY 11/28/22 01/28/24 acetaminophen 650 mg 1 tab PO Q8H PRN pain 12/07/22 01/28/24 tablet,extended release (Mapap Arthritis Pain) cholecalciferol (vitamin D3) 25 25 mcg PO DAILY 12/07/22 01/28/24 mcg (1,000 unit) tablet (Vitamin D3) magnesium oxide 400 mg (241.3 mg 400 mg PO DAILY 12/07/22 01/28/24 magnesium) tablet levothyroxine 25 mcg tablet 25 mcg PO DAILY 03/31/23 01/28/24 potassium chloride 10 mEq 10 meq PO DAILY 03/31/23 01/28/24 tablet,extended release sertraline 25 mg tablet 25 mg PO DAILY 08/06/23 01/28/24 Previous Rx's ?Medication ?Instructions ?Recorded albuterol sulfate 90 mcg/actuation 2 puff inhalation Q6H PRN 12/11/22 aerosol inhaler (ProAir HFA) Shortness Of Breath Or Wheezing #8.5 grams metoprolol tartrate 25 mg tablet 12.5 mg (1/2 x 25 mg) PO BID #30 12/11/22 tabs polyvinyl alcohol 1.4 % eye drops 2 drp ophthalmic (eye) Q4H PRN dry 12/11/22 (Artificial Tears (polyvinyl eye #15 mL alcohol)) prednisone 2.5 mg tablet 2.5 mg PO BID #60 tabs 06/07/24 cefpodoxime 200 mg tablet 200 mg PO Q12H #20 tabs 07/11/24 lidocaine 5 % topical patch 1 patch topical DAILY #15 ea 07/11/24 tizanidine 2 mg tablet 2 mg PO BEDTIME #5 tabs 07/11/24 Allergies Allergy/AdvReac Type Severity Reaction Status Date / Time naproxen [NAPROXEN] Allergy Intermediate BLISTERS Verified 10/09/24 09:30 IN MOUTH Sulfa (Sulfonamide Allergy Intermediate BLISTERS Verified 10/09/24 09:30 Antibiotics) ON TONGUE [SULFA (SULFONAMIDE ANTIBIOTICS)] Review of Systems Constitutional: Constitutional: Reports no additional constitutional complaints, Denies chills, Denies fever(s), Reports headache(s) and Denies night sweats Eyes: Eyes: Reports no additional eye complaints, Denies blurry vision, Denies change in vision, Denies diplopia, Denies eye discharge, Denies loss of vision and Denies eye pain ENT: Denies dizziness, Reports headache(s) and Reports neck pain Cardiovascular: Cardiovascular: Reports no additional cardiovascular complaints, Denies chest pain, Denies lightheadedness, Denies Loss of Consciousness and Denies dyspnea Respiratory: Respiratory: Reports no additional respiratory complaints and D enies dyspnea Gastrointestinal: Gastrointestinal: Reports no additional gastrointestinal complaints, Denies abdominal pain, Denies melena, Denies hematochezia, Denies change in bowel habits and Denies change in stool character Genitourinary: Genitourinary: Denies hematuria, Denies urinary frequency, Denies dysuria, Denies urinary incontinence, Denies urinary hesitancy and Denies urinary urgency Musculoskeletal: Musculoskeletal: Reports no additional musculoskeletal complaints, Reports back pain, Reports neck pain, Denies numbness and Denies tingling Neurologic: Denies dizziness, Reports headache(s), Denies loss of vision, Denies numbness and Denies tingling Psychiatric: Psychiatric: Reports no additional psychiatric complaints Endocrine: Endocrine: Reports no additional endocrine complaints Hematologic/Lymphatic: Hematologic/Lymphatic: Reports no additional hematologic/lymphatic complaints Allergic/Immunologic: Allergic/Immunologic: Reports no additional allergic/immunologic complaints [facility] Past Medical History Medical History Dyspnea on exertion Bronchitis Hyperlipidemia Hypertension Polymyalgia rheumatica Surgical History Hx of cholecystectomy Hx of hysterectomy Family History Family History Mother CHF (congestive heart failure) Social History Social History Household Members: Spouse Housing: House Do you presently have visiting nurse or other home services: No Alcohol intake: current Alcohol intake frequency: holidays/special occasions only Patient Tobacco Use Status: Former Tobacco user Tobacco use type: Cigarette Cigarettes Per Day: 15 Years Smoked: 4 e-Cigarette/Vaping Use: Never Used Second Hand Smoke Exposure: No Substance Use Type: Marijuana Advance Directives: Yes Advance Directives on File: Yes Advance Directives Date on File: 11/24/23 Do you have a plan to hurt others: No Plan service: No Current occupational status: retired Physical Exam ED Vital Signs: Vital Signs - 24 hr 10/09/24 09:28 10/09/24 12:32 10/09/24 14:21 Temperature 97.2 F 98.2 F Pulse Rate 87 117 H 90 Respiratory Rate 20 16 18 Blood Pressure 148/70 H 194/108 H 180/98 H Pulse Oximetry 99 96 96 Oxygen Delivery Method Room Air Room Air Room Air BMI result Body Mass Index 30.9 Const General: cooperative, no acute distress, alert and awake Nutritional Appearance: well nourished Orientation/consciousness: patient oriented x3 Limitations: no limitations HENMT Head: Yes normal to inspection and Yes atraumatic Ears: hearing grossly normal bilaterally and external ears normal General nose exam: Normal external nose present, no nasal discharge noted and no epistaxis Face and sinus: Yes normal facial exam, No abrasion and No laceration Mouth: Normal oral and palatal mucosa present, no drooling and no muffled voice Eyes General: appearance normal, both eyes and all related structures Periorbital: periorbital findings normal Eyelids: Yes eyelids normal Conjunctivae: conjunctivae normal Pupils: Equal, round and reactive pupils present EOM: EOMs intact bilaterally Neck Neck: Yes normal visual inspection, Yes full ROM and Yes no lymphadenopathy Chest Chest palpation & inspection: normal inspection of the chest Resp Effort & Inspection: normal respiratory effort and able to speak in complete sentences GI Inspection: Yes normal to inspection Back/Spine/Pelvis Other: point tenderness to the low T spine Neuro General: patient oriented x3 and moves all extremities Cranial nerves: Yes Equal, round and reactive pupils present Cognition (Neuro): normal cognition Extrem General: Yes normal to inspection, Yes full ROM and Yes capillary refill normal Psych Appearance: grossly normal Mental Status: mental status grossly normal Affect: normal affect Attitude: cooperative Thought process: Normal thought process present Thought content: Normal thought content present Insight: Good insight present (Psych) Medications Administered Discontinued Medications Generic Name Dose Route Start Last Admin Trade Name Freq PRN Reason Stop Dose Admin Oxycodone HCl 5 mg 10/09/24 12:54 10/09/24 13:20 Oxycodone Hcl Immed Release 5 Mg Tablet PO 10/09/24 12:55 5 mg ONCE ONE Administration Medical Decision Making Medical Decision Making MDM Narrative: Patient is an 84 year old assigned female at with a history of osteoporosis, atrial fib, CAD, depression, and vertigo presenting to the emergency department today with head, neck, and back pain. Patient's physical exam was as noted in the physical exam portion of this note. Patient's head and c-spine CT showed no acute process. Patient's thoracic spine showed a compression fracture of T11 but was otherwise unremarkable. I explained my physical exam findings as well as all test results to the patient and the patient's . I answered all questions asked by the patient and the patient's . I stressed the importance of the patient taking her medication as directed (either prescribed or as the over the counter packaging recommends). I stressed the importance of the patient following up with her primary care provider and a payroll and benefits specialist. I stressed the importance of the patient returning to the emergency department immediately if her symptoms were to worsen or if she were to develop any dizziness, shortness of breath, difficulty breathing, chest pain, blurry vision, loss of vision, nausea, vomiting, abdominal pain, fever, chills, back pain, or any other complaints. Patient and the patient's verbalized agreement and understanding with this treatment plan and discharge. Differential Diagnosis Differential Diagnoses: The differential diagnosis associated with the presentation includes Compression fracture Thoracic compression fracture Fall Admission/Observation Consideration of admission/observation: Escalation of care including admission/observation considered Patient would have been admitted to the hospital had her work up had any findings where hospital admission was appropriate and her clinical presentation warranted hospital admission. Independent Interpretation I performed an independent interpretation of an: CT Scan Interpretation: My interpretation is in agreement with the radiologist's impression of these imaging studies. CLINICAL HISTORY: fall, pain, injury CT cervical spine without contrast Comparison: 11/19/23 Findings: Mild multilevel anterolisthesis, degenerative. No acute fracture. Remote fracture of the left clavicle. Multilevel degenerative change is most prominent at C5/C6 with moderate to severe central spinal canal stenosis. No epidural hematoma. Normal thickness of the prevertebral soft tissues. Mild apical scarring with calcifications. Mild emphysematous changes Impression: No acute findings. This document has been electronically signed by: Velma Vallejo MD on 10/09/2024 13:45:27 Dictated By: Velma Mireles MD Signed By: Electronically signed by Velma Mireles MD 10/09/24 1345 CLINICAL HISTORY: fall, pain, injury CT thoracic spine without contrast Comparison: None Findings Mild scoliosis and mild multilevel anterolisthesis, degenerative. There is mild height loss T11 with a fracture line near the superior endplate. No retropulsion of fracture fragments or involvement of the posterior elements. Remote fracture of the left clavicle. Decreased bone mineralization. No severe spinal canal stenosis. No epidural hematoma. No acute soft tissue abnormality or acute findings in the visualized chest and abdomen. Impression: Acute mild compression fracture of T11. No retropulsion of fracture fragments or involvement of the posterior elements. This document has been electronically signed by: Velma Vallejo MD on 10/09/2024 13:57:23 Dictated By: Velma Mireles MD Signed By: Electronically signed by Velma Mireles MD 10/09/24 1358 CLINICAL HISTORY: fall, pain, injury CT head without contrast Comparison: 11/19/23 Findings: No acute hemorrhage. No extra-axial fluid collection. No hydrocephalus, mass- effect or herniation. Alvarez-white differentiation is maintained. There is patchy hypoattenuation of the periventricular and deep white matter, which is most likely the sequela of moderate chronic small vessel ischemic disease and is similar to the prior study. No acute orbital pathology. No acute soft tissue abnormality. No fracture. The visualized paranasal sinuses are predominantly clear. The mastoid air cells are clear. Impression: No acute findings. This document has been electronically signed by: Velma Vallejo MD on 10/09/2024 14:04:59 Dictated By: Velma Mireles MD Signed By: Electronically signed by Velma Mireles MD 10/09/24 7007 Radiology Impression Discussion of test interpretation with radiology: I have reviewed the radiologist's reading. Independent Historian Clinical information obtained from an independent historian. History obtained fr om or confirmed by: Spouse (patient's provided additional history and confirmed the history provided by the patient.) Discharge Plan Discharge Clinical Impression: Compression fracture of T11 vertebra, Fall Patient Disposition: Home, Self-Care Instructions: Vertebral Compression Fracture (ED), Fall Prevention for Older Adults (ED) Additional Instructions: Follow up with your primary care provider and a payroll and benefits specialist. Return to the emergency department immediately if your symptoms worsen or if you develop any dizziness, shortness of breath, difficulty breathing, chest pain, blurry vision, loss of vision, nausea, vomiting, abdominal pain, fever, chills, back pain, or any other complaints. Prescriptions: No Action prednisone 2.5 mg tablet 2.5 mg PO BID Qty: 60 0RF acetaminophen [Mapap Arthritis Pain] 650 mg tablet extended release 1 tab PO Q8H PRN (Reason: pain) magnesium oxide 400 mg (241.3 mg magnesium) Tablet 400 mg PO DAILY cholecalciferol (vitamin D3) [Vitamin D3] 25 mcg (1,000 unit) Tablet 25 mcg PO DAILY polyvinyl alcohol [Artificial Tears (polyvin alc)] 1.4 % Drops 2 drp ophthalmic (eye) Q4H PRN (Reason: dry eye) Qty: 15 0RF albuterol sulfate [ProAir HFA] 90 mcg/actuation HFA aerosol inhaler 2 puff inhalation Q6H PRN (Reason: Shortness Of Breath Or Wheezing) Qty: 8.5 0RF metoprolol tartrate 25 mg tablet 12.5 mg PO BID Qty: 30 0RF tizanidine 2 mg tablet 2 mg PO BEDTIME Qty: 5 0RF lidocaine 5 % adhesive patch,medicated 1 patch topical DAILY Qty: 15 0RF Rx Instructions: leave on most painful area for up to 12 hrs cefpodoxime 200 mg tablet 200 mg PO Q12H Qty: 20 0RF Rx Instructions: must administer with a meal/food omeprazole 20 mg capsule,delayed release(DR/EC) 20 mg PO DAILY@0630 fexofenadine 180 mg tablet 180 mg PO DAILY fluticasone propionate [Allergy Relief (fluticasone)] 50 mcg/actuation spray,suspension 1 spray intranasal DAILY Rx Instructions: administer into each nostril simvastatin 20 mg tablet 20 mg PO DAILY hydrochlorothiazide 25 mg tablet 25 mg PO DAILY folic acid 1 mg tablet 1 mg PO DAILY levothyroxine 25 mcg tablet 25 mcg PO DAILY potassium chloride 10 mEq tablet extended release 10 meq PO DAILY sertraline 25 mg tablet 25 mg PO DAILY Referrals: [facility] [Provider Group] (Call to establish and follow up with a payroll and benefits specialist. ) Ismael Davis MD [Primary Care Provider] - Interventions: ED Discharge Assessment Last Done: 10/09/24 14:21 Discharge Date/Time: 10/09/24 14:24 Print Language: Slovak
--- OUTSIDE RECORDS SUMMARY | 2024-10-09 11:44 | XMS_ITS ---
Author Organization [facility] Address [address] [place] [address] Care Team Providers Care Vocational Placement Specialist Name Role Phone Ismael Davis MD Primary Care Provider [facility] [phone] REASON FOR VISIT cx 08/05 Encounters Encounter Location Date Provider Diagnosis [facility] [address] [place] [address] 08/03/2024 [facility] Plan Of Treatment No Information Progress Notes * Vero CONNELLYDOB: [birth year] (83 yo F)Acc No.[id number]:08/03/2024 Patient:?DarrellVero :1940???Age:83 Y???Sex:Female Address:[address], [place], [address] * true * Date:? Generated for Printi ng/Facoreyg/eTransmitting on:?10/09/2024 11:43 AM EST
--- OUTSIDE RECORDS SUMMARY | 2024-10-09 11:44 | XMS_ITS ---
Author Organization [facility] [place] Address [address] [facility] [place] [address] Care Team Providers Care Baseball Pitcher Name Role Phone Ismael Davis MD Primary Care Provider Kaiser Cerna Unavailable [phone] Allergies Allergen (clinical drug ingredient) Drug/Non Drug Allergy documented on EMR Reaction Allergy Type Onset Date Status Bee Sting swelling Allergy Active REASON FOR VISIT Last PCP Visit: 04/26/24, Ingrown nail(s) Medications Medication SIG (Take, Route, Frequency, Duration) Notes Start Date End Date Status prednisoLONE 5 MG 1 tablet in the morning with food or milk Orally Once a day for 30 days 10 mg daily Active Omeprazole 20 MG 1 capsule 30 minutes before morning meal Orally Once a day for 30 day(s) Active Triamcinolone Acetonide 0.1 % 1 application Externally Twice a day Active Sertraline HCl 50 MG 1 tablet Orally Once a day for 30 day(s) Active Simvastatin 20 MG 1 tablet in the evening Orally Once a day for 30 day(s) Active Levothyroxine Sodium Active hydroCHLOROthiazide 25 MG 1 tablet in e morning Orally Once a day for 30 day(s) Active Celecoxib 200 MG 1 capsule with food Orally Once a day for 30 day(s) Active Fluticasone Propionate Active Fexofenadine HCl 180 MG 1 tablet Orally Once a day for 30 day(s) Active Voltaren 1 % as directed Externally Active Night Splint AFO - L1930 as directed Active Alendronate Sodium 70 MG 1 tablet 30 min utes before the first food, beverage or medicine of the day with plain water Orally for 30 day(s) Active Social History Tobacco Use: Social History Observation Description Date Details (start date - stop date) Former Smoker NA - NA Tobacco Use/Smoking Question Answer Notes Are you a: former smoker Additional Findings: Tobacco Non-User Current no n-smoker Alcohol Screen Question Answer Notes Did you have a drink contain ing alcohol in the past year? Yes How often did you have a dri nk containing alcohol in the past year? Monthly or less (1 point) Points 1 Interpretation Negative Tobacco use other than smoking: Question Answer Notes Are you an other tobacco user? No Vital Signs Height 4ft 11in in 05/03/2024 Weight 160 lbs 05/03/2024 BMI 32.31 kg/m2 05/03/2024 Blood pressure systolic 138 mm Hg 05/03/20 24 Blood pressure diastolic 70 mm Hg 024 Encounters Encounter Location Date Provider Diagnosis [facility] [address] [place] [address] 05/03/2024 Kaiser Riddle Tinea unguium B35.1 ; Pain [...] Treatment Notes Treatment Clinical Notes Section Notes 05/03/2024 Tinea unguium (ICD-10 - B35.1) 05/03/2024 Pain in right toe(s) (ICD-10 - M79.674) 05/03/2024 Pain in left toe(s) (ICD-10 - M79.675) 05/03/2024 Hallux valgus (acquired), left foot (ICD-10 - M20.12) 05/03/2024 Hallux valgus (acquired), right foot (ICD-10 - M20.11) 05/03/2024 Other hammer toe(s) (acquired), left foot (ICD-10 - M20.42) 05/03/2024 Other hammer toe(s) (acquired), right foot (ICD-10 - M20.41) 05/03/2024 Tailor's bunion of left foot (ICD-10 - M21.622) 05/03/2024 Tailor's bunion of right foot (ICD-10 - M21.621) 05/03/2024 Xerosis cutis (ICD-10 - L85.3) 05/03/2024 Ingrowing nail (ICD-10 - L60.0) 05/03/2024 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 - M72.2) Patient [...] T1 Progress Notes * Vero CONNELLYDOB: [birth year] (83 yo F)Acc No.[id number]:05/03/2024 Progress Note Patient:?DarrellAguilaly Provider:?Kaiser Riddle DPM :1940???Age:83 Y???Sex:Female D ate:05/03/2024 Address:[address], [place] , [place] Pcp:Ismael Davis MD Subjective: * Chief Complaints: * ???Last PCP Visit: 04/26/24I clarisa nail(s) * HPI: ???Foot Pain:?Nature:?dull, aching, sharp.?Location?B/L, Forefoot.?Duration:?several years.?Onset/Cause:?unknown.?Course:?improved.?Aggrevated:?any pressure, shoes.?Treatments:?change in shoes; pt just started using yoga toes 08/02; voltaren gel didn't help; pedag insoles.?Quality/Severity?3, scale 1-10.?Heel pain:?Nature:?sharp pain.?Location:?plantar , Arch , B/L.?Duration:?several months.?Onset/Cause:?unknown.?Course:?improved.?Aggravated:?walking first thing in the morning/after rest.?Treatments:?pre-fabricated orthoses, AFO-nightsplint.?Severity/Quality:?States 2 out of 10.? * ROS:?General/Constitutional:?Nausea?denies.?Vomiting?denies.?Hunger Thirst?denies.?Loss appetite?denies.?Chills?denies.?Fatigue?denies.?Fever?denies.?Night Sweats?denies.?Unexplained weight loss?denies.?Unexplained weight gain?denies.?HEENTM:?Dentures?denies.?Dizziness?denies.?Glasses/contacts?denies.?Retinopathy?de nies.?Blurred/double vision?denies.?TMJ?denies.?Discharge/drainage?denies.?Implants?denies.?Sore throat?denies.?Dental implants?denies.?Hard of hearing ?denies.?Difficulty chewing/swallowing/speaking?denies.?Nose bleeds?denies.?Sore mouth?denies.?Respiratory:?On Oxygen?denies.?Pneumonia/pleurisy?denies.?Bronchitis?denies.?Emphysema?denies.?C oughing?denies.?Cough blood?denies.?Shortness of breath?denies.?Wheezing?denies.?Cardiovascular:?Pacemaker?denies.?MVP?denies.?WPW?denies.?CHF?denies.?Heart attack?denies.?Septal defect?denies.?Rapid beat?denies.?Chest pain ?denies.?Atrial Fib.?denies.?Murmur/Palpitations?denies.?Gastrointestinal:?Hemorrhoids?denies.?Stomach/Abdominal pain?denies.?Dark blood stool?denies.?Irritable bowel ?denies.?Constipation?denies.?Diarrhea?denies.?Hematology:?Swelling?denies.?Clots?denies.?Varicose Veins?denies.?Bruising?denies.?Bleeding problem?denies.?Genitourinary:?Blood urine?denies.?Frequent/Painfu/urination/bladder control?denies.?Kidney stones?denies.?Infection (UTI)?denies.?Nephropathy?denies.?sex trans dis (STD)?denies.?Prostate?denies.?Musculoskeletal:?Hammertoes?admits.?Bunions?admits.?Back Pain?denies.?Muscle Cramps/ Resting?denies.?Muscle cramps / walking?denies.?Generalized aches and pains?denies.?Weakness?denies.?Integ.:?Nogueira?denies.?Scars?denies.?Corns/calluses?admits.?Ingrown nails?denies.?Painful nails?denies.?Open Sores?denies.?Rashes?denies.?Neurologic:?Difficulty sleeping?denies.?Brain disorder?denies.?Numbness?denies.?Balance trouble?denies.?Confusion?denies.?Fainting/blackouts?denies.?Tingling?denies.?Tr emors?denies.? * Medical History:? * Surgical History:?hysterecto my gall bladder * Hospitalization/Major Diagno stic Procedure:?[facility]- Rheumatoid arthritis 11/2023[facility]- Bee sting 04/23/24 * Family History:?Mother: dece ased.?Father: .? * Social History:?Tobacco Use:?Tobacco Use/Smoking?Are you a:?former smoker ?Additional Findings: Tobacco Non-User?Current non-smoker ?Tobacco use other than smoking?Are you an other tobacco user??No ???Drugs/Alcohol:?Drugs?Have you used drugs other than those for medical reasons in the past 12 months??No ?Alcohol Screen?Did you have a drink containing alcohol in the past year??Yes ?How often did you have a drink containing alcohol in the past year??Monthly or less (1 point) ?Points?1 ?Interpretation?Negative ???Miscellaneous:?Caffeine: yes, frequency: , 1-2 cups per day. ?Children: yes. ?no Exercise. ?Marital status: . 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 * Medications:?TakingAlendrona te Sodium 70 MG Tablet 1 tablet 30 minutes before the first food, beverage or medicine of the day with plain water Orally Celecoxib 200 MG Capsule 1 capsule with food Orally Once a dayFexofenadine HCl 180 MG Tablet 1 tablet Orally Once a dayFluticasone Propionate hydroCHLOROthiazide 25 MG Tablet 1 tablet in the morning Orally Once a dayLevothyroxine Sodium Omeprazole 20 MG Capsule Delayed Release 1 capsule 30 minutes before morning meal Orally Once a dayprednisoLONE 5 MG Tablet 1 tablet in the morning with food or milk Orally Once a day, Notes: 10 mg dailySimvastatin 20 MG Tablet 1 tablet in the evening Orally Once a daySertraline HCl 50 MG Tablet 1 tablet Orally Once a dayTriamcinolone Acetonide 0.1 % Ointment 1 application Externally Twice a dayVoltaren 1 % Gel as directed Externally Night Splint AFO - L1930 as directed Medication List reviewed and reconciled with the patientTaking Alendronate Sodium 70 MG Tablet 1 tablet 30 minutes before the first food, beverage or medicine of the day with plain water Orally Taking Celecoxib 200 MG Capsule 1 capsule with food Orally Once a dayTaking Fexofenadine HCl 180 MG Tablet 1 tablet Orally Once a dayTaking Fluticasone Propionate Taking hydroCHLOROthiazide 25 MG Tablet 1 tablet in the morning Orally Once a dayTaking Levothyroxine Sodium Taking Omeprazole 20 MG Capsule Delayed Release 1 capsule 30 minutes before morning meal Orally Once a dayTaking prednisoLONE 5 MG Tablet 1 tablet in the morning with food or milk Orally Once a day, Notes: 10 mg dailyTaking Simvastatin 20 MG Tablet 1 tablet in the evening Orally Once a dayTaking Sertraline HCl 50 MG Tablet 1 tablet Orally Once a dayTaking Triamcinolone Acetonide 0.1 % Ointment 1 application Externally Twice a dayTaking Voltaren 1 % Gel as directed Externally Taking Night Splint AFO - L1930 as directed Medication List reviewed and reconciled with the patient * Allergies:?Bee Sting: tai Herring[Allergies Verified] Objective: * Vitals:?Ht: 4ft 11in, Wt: 16 0, BMI: 32.31, Shoe size: 7, BP: 138/70 mm Hg, Wt- k.57 kg. * Examination: ???General Examination: ?GENERAL APPEARANCE:?pleasant, alert, well nourished, well developed, well hydrated, with good attention to hygene/body habitus, and in no acute distress.?ORIENTED:?person,place, and time.?Neurological: ?SENSORY:?Neurological exam is normal, pain sensation normal, vibration sensation intact, pinprick sensation is normal in the lower extremities, denies, tingling, burning, anesthesia, paresthesia, hyperesthesia, B/L , Neurological exam demonstrates mild?pop of plantar fascia anshul midsection.?TINEL'S COMPRESSION:?Negative tarsal tunnel, ya pedis, and medial calcaneal nerves B/L.?BABINSKI REFLEX:?absent.?Neuroma Pain: ?PALPATION:?No interspace pain noted on palpation.?Vascular: ?DP PULSES:? 10/16, B/L.?PT PULSES:? 10/16, B/L.?CAPILLARY FILL TIME:?3 secs. per digit, B/L.?SKIN TEMPERTURE GRADIENT OF THE LOWER EXTERMITIES:?warm to cool, proximal to distal, B/L.?HAIR GROWTH/TEXTURE/ELASTICITY/TURGOR:?normal, B/L.?PIGMENTATION:?normal, B/L.?EDEMA:?no edema.?TELANGECTASIA:?absent.?VARICOSITIES:?absent.?Dermatologic: ?SKIN FINDINGS:?Skin exam reveals Keratotic lesion(s) located at , Plantar , T2.?Orthopedic: ?MUSCLE STRENGTH:?5/5 all groups in a symmetrical fashion , B/L.?GAIT ABNORMALITY:?pronated, abducted, B/L.?BUNION:? Medially prominent 1st MPJ, (+) Pain on palpation, B/L, Lateral tracking 1st MPJ incompletely reducable.?TAILOR'S BUNION:? Prominent, painful, inflammed 5th MTH/MPJ, B/L.?DIGITAL DEFORMITIES:? Digital contracture, PIPJ, 2-5 B/L, incompl- reducable with WB, or to push-up test, no over, nor underlapping; pop of dipj anshul 2,3.?Nails: ?NAILS are:?elongated,overgrown,dystrophic,greater than 3mm thick,discolored and friable with crumbly malodorous subungual debris, with pain on palpation, 1-5 B/L.?Ingrown Nail: ?INSPECTION:? Reveals nail incurvation, pain on palpation, groove hypertrophy, groove ischemia Medial nail border, nail border, T1.? 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 Plan: * Treatment: 2.?Plantar fascial fibromato sis? Start Night Splint AFO - L1930, as directed, Dx Plantar Fasciitis.?? Notes: Patient Educated with: HEEL CORD STRETCHES.pdf (HEEL CORD STRETCHES.pdf) Patient Educated with: RICE THERAPY.pdf (RICE THERAPY.pdf)?? * Procedures:?Nail Avulsion:?Location?Medial nail border, T1.?Anesthesia?was deferred - PT ABSOLUTELY REFUSES - tolerant to pain without issue/complication.?Procedure?A fine sterile elevator was used to loosen the eponychium, nail bed, nail plate and groove. A sterile nail splitter was then used to longitudinally section the nail. This section was removed. No underlying bone was identified. Procedure was performed under. Bacitracin and sterile dressings applied, local wound care instructions were dispensed. Patient was informed of both conservative and future surgical procedures to prevent recurrence.? * Procedure Codes:?26979 Avuls ion Plate, Modifiers: T1 * Preventive Medicine:? ??Counseling:?Discussion:?-13: Office or other outpatient visit for the evaluation and management of an established patient, which required a medically appropriate history and/or examination and LOW level of DECISION MAKING for: 1 STABLE ACUTE UNCOMPLICATED PROBLEM, 2 OR MORE MINOR PROBLEMS, OR 1 STABLE CHRONIC PROBLEM, THAT POSE(S) A LOW RISK FOR MORBIDITY/MORTALITY. The visit on the day of the encounter encompassed interpreting the data and educating the patient as to the nature of their condition, treatment options available according to their individual PMH, meds, allergies, and overall health/living conditions, as well as any potential risks or complications that may occur from a failure to adhere to, and participate in, the recommended course of therapy. The discussion included a complete verbal, and/or written explanation of the examination results, any x-rays taken, the proposed diagnosis, and outline of the treatment plan. A schedule for future care needs was also explained. The patient verbalized an understanding of the instructions at this time and agreed to be an active participant in their treatment. If the patient should think of any questions or concerns after the visit, I have encouraged the patient to call the office.? * Follow Up:?3 Months * Images: * Sign off status: Completed true * Provider:?Kaiser Riddle DPM Date:? 024 Generated for Astrid mello/Faxing/eTransmitting on:?10/09/2024 11:43 AM EST History and Physical Notes * HPI [...] and ti me Vascular DP PULSES (B): 10/16, B/L PT PULSES (B): 4, B/L CAPILLARY FILL TIME: 3 secs. per [...]
--- OUTSIDE RECORDS SUMMARY | 2024-10-09 11:44 | XMS_ITS ---
Author Organization [facility] Address [address] [place] [address] Care Team Providers Care Cleaner Touch Up Worker Name Role Phone Ismael Davis MD Primary Care Provider Kaiser Cerna [phone] REASON FOR VISIT Last PCP Visit: 04/26/24, Ingrown nail(s) Medications Medication SIG (Take, Route, Frequency, Duration) Notes Start Date End Date Status Voltaren 1 % as directed Externally Active Night Splint AFO - L1930 as directed Active Problems Problem Type SNOMED Code ICD Code Onset Dates Problem Status W/U Status Risk Notes Problem Plantar fascial fibromatosis (14147304) 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 Encounters Encounter Location Date Provider Diagnosis [facility] [address] [place] [address] 08/05/2024 Kaiser Riddle Tinea unguium B35.1 ; [...] * Vero CONNELLYDOB: [birth year] (84 yo F)Acc No.[id number]:08/05/2024 Progress Note Patient:?Vero CONNELLY Provider:?Kaiser Riddle DPM :1940???Age:83 Y???Sex:Female D ate:08/05/2024 Address: [address], [facility], [facility] Pcp:Ismael Davis MD Subjective: * Chief Complaints: * ???1. Last PCP Visit: . 2. Ingrown nail(s). * HPI: ???Foot Pain:?Nature:?dull, aching, sharp.?Location?B/L, Forefoot.?Duration:?several [...] sleeping?denies.?Brain disorder?denies.?Numbness?denies.?Balance trouble?denies.?Confusion?denies.?Fainting/blackouts?denies.?Tingling?denies.?Tr emors?denies.? * Medical History:? Objective: * Vitals:? * Examination: ???General Examination: ?GENERAL APPEARANCE:?pleasant, alert, [...] ?PALPATION:?No interspace pain noted on palpation.?Vascular: ?DP PULSES (B):? /, B/L.?PT PULSES (B):? /, B/L.?CAPILLARY FILL TIME:?3 secs. per digit, B/L.?TROPHIC CONDITION-TEXTURE/ELASTICITY/TURGOR/HAIR GROWTH (B):?normal, B/L.?TEMPERTURE GRADIENT (C):?warm to cool, proximal to distal, B/L.?PIGMENTATION:?normal, B/L.?EDEMA (C):?no edema.?TELANGECTASIA:?absent.?VARICOSITIES:?absent.?Dermatologic: ?SKIN FINDINGS:?Skin exam reveals Keratotic lesion(s) [...] * Assessment: 1.?Tinea unguium - B35.1 (Pr imary)???2.?Pain in right toe(s) - M79.674???3.?Pain in left toe(s) - M79.675???4.?Hallux valgus (acquired), left foot - M20.12???5.?Hallux valgus (acquired), right foot - M20.11? 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 Plan: * Treatment: 2.?Plantar fascial fibromato sis? [...] surgical procedures to prevent recurrence.? * Procedure Codes:?52769 Avuls ion Plate, Modifiers: T1 * Follow Up:?3 Months * Images: * The named appointment provid er may or may not be the originator of this progress note, and it is not deemed complete until electronically signed by the appointment provider. Sign off status: Pending * Provider:Alexander Riddle DPM Date:? 024 Generated for Astrid mello/Jason/Willaitting on:?10/09/2024 11:43 AM EST History and Physical [...]
--- OUTSIDE RECORDS SUMMARY | 2024-10-09 11:44 | XMS_ITS | Patient Health Record ---
Author Organization [facility] Address [address] [facility] [place] [address] Care Team Providers Care Director Of Accreditation Name Role Phone Ismael Davis MD Primary Care Provider Kaiser Cerna Unavailable [phone] Allergies Allergen (clinical drug ingredient) Drug/Non Drug Allergy documented on EMR Reaction Allergy Type Onset Date Status Bee Sting swelling Allergy Active Reason For Referral No Information Medications Medication SIG (Take, Route, Frequency, Duration) Notes Start Date End Date Status Voltaren 1 % as directed Externally Active Night Splint AFO - L1930 as directed Active Celecoxib 200 MG 1 capsule with food Orally Once a day for 30 day(s) Active prednisoLONE 5 MG 1 tablet in the morning with food or milk Orally Once a day for 30 days 10 mg daily Active Omeprazole 20 MG 1 capsule 30 minutes before morning meal Orally Once a day for 30 day(s) Active Levothyroxine Sodium Active hydroCHLOROthiazide 25 MG 1 tablet in th e morning Orally Once a day for 30 day(s) Active Alendronate Sodium 70 MG 1 tablet 30 min utes before the first food, beverage or medicine of the day with plain water Orally for 30 day(s) Active Triamcinolone Acetonide 0.1 % 1 application Externally Twice a day Active Sertraline HCl 50 MG 1 tablet Orally Once a day for 30 day(s) Active Simvastatin 20 MG 1 tablet in the evening Orally Once a day for 30 day(s) Active Fluticasone Propionate Active Fexofenadine HCl 180 MG 1 tablet Orally Once a day for 30 day(s) Active Immunizations Vaccine Route Administration Date Status Comme nts COVID-19 Moderna Vaccine Unknown 08/23/2021 Administered 1st 11/26/20 2nd 12/24/20 Influenza Unknown 08/16/2021 Administered Social History Tobacco Use: Social History Observation [...] Are you an other tobacco user? No Problems Problem Type SNOMED Code ICD Code Onset Dates Problem Status W/U Status Risk Notes Problem Acquired hallux valgus (74030868) Hallux valgus (acquired), left foot (M20.12) Active confirmed Problem Acquired hallux valgus (33207265) Hallux valgus (acquired), right foot (M20.11) Active confirmed Problem Plantar fascial fibromatosis (34632869) 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 Problem Acquired hammer toe of right foot (401284404577001 5) Other hammer toe(s) (acquired), right foot (M20.41) Active confirmed Problem Acquired hammer toe of left foot (859839505571144 3) Other hammer toe(s) (acquired), left foot (M20.42) Active confirmed Vital Signs Blood pressure diastolic 70 mm Hg 05/03/2024 Height 4ft 11in in 05/03/2024 Blood pressure systolic 138 mm Hg 05/03/2024 Weight 160 lbs 05/03/2024 BMI 32.31 kg/m2 05/03/2024 Encounters Encounter Location Date Provider Diagnosis [facility] [address] [place] [address] 12/04/2023 Kaiser Riddle Tinea unguium B35.1 ; Pain [...] nail L60.0 and Plantar fascial fibromatosis M72.[address] [facility] [address] 01/05/2024 Kaiser Riddle Tinea unguium B35.1 ; Pain [...] nail L60.0 and Plantar fascial fibromatosis M72.[address] [address] 05/03/2024 Kaiser Riddle Tinea unguium B35.1 ; [...] nail L60.0 and Plantar fascial fibromatosis M72.[address] [address] 12/04/[address] [address] 08/03/2024 Kaiser Riddle Assessments Encounter Date Diagnosis (ICD Code) Assessment Notes Treatment Notes Treatment Clinical Notes Section Notes 12/04/2023 Tinea unguium (ICD-10 - B35.1) 12/04/2023 Pain in right toe(s) (ICD-10 - M79.674) 01/05/2024 Tinea unguium (ICD-10 - B35.1) 01/05/2024 Pain in right toe(s) (ICD-10 - M79.674) 05/03/2024 Tinea unguium (ICD-10 - B35.1) 05/03/2024 Pain in right toe(s) (ICD-10 - M79.674) 05/03/2024 Pain in left toe(s) (ICD-10 - M79.675) 01/05/2024 Pain in left toe(s) (ICD-10 - M79.675) 12/04/2023 Pain in left toe(s) (ICD-10 - M79.675) 12/04/2023 Hallux valgus (acquired), left foot (ICD-10 - M20.12) 01/05/2024 Hallux valgus (acquired), left foot (ICD-10 - M20.12) 05/03/2024 Hallux valgus (acquired), left foot (ICD-10 - M20.12) 05/03/2024 Hallux valgus (acquired), right foot (ICD-10 - M20.11) 01/05/2024 Hallux valgus (acquired), right foot (ICD-10 - M20.11) 12/04/2023 Hallux valgus (acquired), right foot (ICD-10 - M20.11) 12/04/2023 Other hammer toe(s) (acquired), left foot (ICD-10 - M20.42) 01/05/2024 Other hammer toe(s) (acquired), left foot (ICD-10 - M20.42) 05/03/2024 Other hammer toe(s) (acquired), left foot (ICD-10 - M20.42) 12/04/2023 Other hammer toe(s) (acquired), right foot (ICD-10 - M20.41) 01/05/2024 Other hammer toe(s) (acquired), right foot (ICD-10 - M20.41) 05/03/2024 Other hammer toe(s) (acquired), right foot (ICD-10 - M20.41) 01/05/2024 Tailor's bunion of left foot (ICD-10 - M21.622) 12/04/2023 Tailor's bunion of left foot (ICD-10 - M21.622) 05/03/2024 Tailor's bunion of left foot (ICD-10 - M21.622) 05/03/2024 Tailor's bunion of right foot (ICD-10 - M21.621) 12/04/2023 Tailor's bunion of right foot (ICD-10 - M21.621) 01/05/2024 Tailor's bunion of right foot (ICD-10 - M21.621) 12/04/2023 Xerosis cutis (ICD-10 - L85.3) 01/05/2024 Xerosis cutis (ICD-10 - L85.3) 05/03/2024 Xerosis cutis (ICD-10 - L85.3) 05/03/2024 Ingrowing nail (ICD-10 - L60.0) 01/05/2024 Ingrowing nail (ICD-10 - L60.0) 12/04/2023 Ingrowing nail (ICD-10 - L60.0) 12/04/2023 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 - M72.2) Patient Educated with: HEEL CORD STRETCHES.pdf (HEEL CORD STRETCHES.pdf) Patient Educated with: RICE THERAPY.pdf (RICE THERAPY.pdf) 01/05/2024 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 - M72.2) Patient Educated with: HEEL CORD STRETCHES.pdf (HEEL CORD STRETCHES.pdf) Patient Educated with: RICE THERAPY.pdf (RICE THERAPY.pdf) 05/03/2024 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 - M72.2) Patient Educated with: HEEL CORD STRETCHES.pdf (HEEL CORD STRETCHES.pdf) Patient Educated with: RICE THERAPY.pdf (RICE THERAPY.pdf) Plan Of Treatment Pending Test Test Name Order Date X ray : Foot, left 3V 05/24/2021 X ray : Foot, left 3V 12/04/2023 X ray : Foot, right 3V 05/24/2021 X ray : Foot, right 3V 12/04/2023 Insurance Providers Payer Name Payer Address Payer Phone Subscriber Number Group Number Insured Name Patient Relationship to Insured Coverage Start Date Coverage End Date [employer]age [facility] [address] [place], [place] [phone] [id number] Vero Ramírez Self - patient is the insured Medical (General) History Medical History History ICD Code Arthritis Back,Hip,and Knee pain Depression Headaches/Migraines Kidney disease Measles Mumps Chicken pox Surgical History Surgery Date(Month/Year) hysterectomy gall bladder Hospitalization History Reason Date(Month/Year) [facility]- Bee sting 04/23/24 [facility] [place] Rheumatoid arthritis 11/2023
[2024-10-09 12:32] VITALS: BP 194/108; PULSE 117; RESP 16; O2SAT 96
--- NOTE | 2024-10-09 12:41 | PC.NURSE ---
PA notified of elevated BP
[2024-10-09] MEDS: oxyCODONE HCl Immed Release 5 MG TABLET PO (13:20)
[2024-10-09 14:21] VITALS: BP 180/98; PULSE 90; RESP 18; TEMP 36.8; O2SAT 96
== END 2024-10-09 14:24 | disposition home or self-care (01) ==
PROVIDERS: Emergency Provider Emergency Medicine; PCP Internal Medicine
DX: S22.080A Wedge compression fracture of T11-T12 vertebra, initial encounter for closed fracture (principal); W18.39XA Other fall on same level, initial encounter; M54.2 Cervicalgia; R51.9 Headache, unspecified; Y93.89 Activity, other specified; Y92.018 Other place in single-family (private) house as the place of occurrence of the external cause; Y99.9 Unspecified external cause status
CPT/HCPCS: 70450; 72125; 72128; 99284

== ENCOUNTER → 2024-10-09 11:25 | Outpatient (BNV) | payer MEDICARE, SELFPAY | PROVIDERS: Emergency Provider Emergency Medicine; PCP Internal Medicine; Visit Provider Radiology Diagnostic Radiology | DX: M54.2 Cervicalgia (principal); S22.080A Wedge compression fracture of T11-T12 vertebra, initial encounter for closed fracture; M54.6 Pain in thoracic spine; R51.9 Headache, unspecified | CPT/HCPCS: 70450; 72125; 72128 ==

== ENCOUNTER 2024-10-18 11:00 | Outpatient (AMB) | payer MEDICARE, SELFPAY ==
--- NOTE | 2024-10-18 11:05 | A.SPINEOV_ITS ---
Intake Visit Reasons: grade 2 spondy at L4-5 and compression fx at T11 Intake Note: Mrs. Ramírez is here today c/o back pain. Color Paste Mixer Required: No Allergies naproxen [NAPROXEN] Allergy (Intermediate, Verified 10/09/24 09:30) BLISTERS IN MOUTH Sulfa (Sulfonamide Antibiotics) [SULFA (SULFONAMIDE ANTIBIOTICS)] Allergy (Intermediate, Verified 10/09/24 09:30) BLISTERS ON TONGUE Assessment & Plan Assessment & Plan (1) Compression fracture of body of thoracic vertebra: Code(s): S22.000A - Wedge compression fracture of unspecified thoracic vertebra, initial encounter for closed fracture Category: Medical Plan Dear Dr Davis, Thank you for referring Mrs Ramírez to our office today. She is a very nice 84-year-old female history of osteoporosis, vertigo who sustained a fall about 2 or 3 weeks ago. She was walking in her house and felt dizzy and fell over. She ended up in the emergency room, was diagnosed with a T11 compression fracture and came here to see us today. She tells me that she has been using Tylenol and tramadol no seem to help make the pain manageable. She is having very hard time sleeping, so she has been using a chair in her living room which has an automated feature that will lift her out of the chair and put her on her feet. Just standing up straight is very uncomfortable. She has been using a walker to get around. She does get some tingling of her toes and has had some chronic low back pain that is also gotten worse with her fall. She has a history of urinary incontinence for many years, but that is unchanged. To this point, her only treatment has been tincture of time and the medications as listed above in addition to a THC supplement which helps alot. PMH: History of polymyalgia rheumatica, vertigo, osteoporosis, GERD, cholecystectomy with an open laparotomy in the right upper quadrant, hysterectomy, depression, high cholesterol, edema of the lower extremities Social hx: She quit smoking 40 years ago, does not drink, but does use a THC supplement Medications: Fexofenadine, omeprazole, prednisone, sertraline, simvastatin, high cholesterol, levothyroxine, hydrochlorothiazide, alendronate, celecoxib Allergies: Naproxen, sulfa Physical exam: Very pleasant female no acute distress able to stand up on her own with the help of a walker but she is very slow to mobilize. She does have tenderness along the thoracic and the lumbar spine. Strength is limited because of pain with flexion of her hips, but no focal deficit is detected. Reflexes are normal with the exception of Slightly brisk in the right patella, but no clonus. Upper extremities reveal normal reflexes, negative Joanne's. Imaging review: There is a thoracic CT done at [facility] showing what appears to be a new T11 mild compression fracture, no disruption of the posterior cortex or retropulsed fragments. She has severe diffuse thinning of the bones. On the student accounts manager imaging x-ray I can also see that the patient has a grade 2 spondylolisthesis at L4-5. Impression: 84-year-old female presents for evaluation of back pain in the thoracic and lumbar after a fall. She does have what appears to be a new T11 mild compression fracture, when compared to x-rays done previously earlier in the year. I suspect this is part of the source of her pain. What is interesting though she also has significant low back pain. She has a grade 2 spondylolisthesis there. She has a history of chronic back pain but this is a d ifferent pain altogether in much more intense. She was very tender to palpation over that area on my physical exam. She does get tingling of her toes and occasional radiculopathy down her legs but that is not new. She is taking tramadol and Tylenol. I would like to get MRI of the thoracic and lumbar to evaluate a little better. We did talk about the fact that most likely this fracture will heal on its own given enough time, but after 2 of 3 weeks of this level of discomfort, she is interested in the possibility of a kyphoplasty if indeed the MRI shows that there is STIR image hyperintensity. I did give her a brace TLSO that she can use when she is out of bed. I would like to see her back after the MRIs. Thank you for allowing us to care for your patient. The total time spent with this visit with this patient was 45 minutes reviewing history, physical exam, thoracic imaging review, and implementation of treatment plan or further diagnostic testing Bj Landry MD,PhD [facility] Medications: New [TLSO] [place] TLSO or other comparable orthotic 1 ea 0RF S22.000A - Wedge compression fracture of unspecified thoracic vertebra, initial encounter for closed fracture Coding Level of Care Code New Pt Level 4 (94532) Diagnoses Compression fracture of body of thoracic vertebra S22.000A
--- OUTSIDE RECORDS SUMMARY | 2024-10-18 12:34 | XMS_ITS ---
Author Organization [facility] Address [address] [place] [address] Care Team Providers Care Clinical Statistics Manager Name Role Phone Ismael Davis MD Primary Care Provider Kaiser Cerna [phone] REASON FOR VISIT cx 08/05 Encounters Encounter Location Date Provider Diagnosis [facility] [address] [place] [address] 08/03/2024 Kaiser Riddle Plan Of Treatment No Information Progress Notes * Vero CONNELLYDOB: [birth year] (83 yo F)Acc No.[id number]:08/03/2024 Patient:?DarrellVero :1940???Age:83 Y???Sex:Female Address:[address], [place], [address] * true * Date:? Generated for Printi funmilayo/Jason/eTransmitting on:?10/18/2024 12:34 PM EST
--- OUTSIDE RECORDS SUMMARY | 2024-10-18 12:34 | XMS_ITS ---
Author Organization [facility] Address [address] [place] [address] Care Team Providers Care Oiler Helper Name Role Phone Ismael Davis MD Primary Care Provider Kaiser Cerna [phone] REASON FOR VISIT Last PCP Visit: 04/26/24, Ingrown nail(s) Medications Medication SIG (Take, Route, Frequency, Duration) Notes Start Date End Date Status Voltaren 1 % as directed Externally Active Night Splint AFO - L1930 as directed Active Problems Problem Type SNOMED Code ICD Code Onset Dates Problem Status W/U Status Risk Notes Problem Plantar fascial fibromatosis (26725159) 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 Encounters Encounter Location Date Provider Diagnosis [facility] [address] [place] [address] 08/05/2024 Kaiser Riddle Tinea unguium B35.1 ; [...] * Vero CONNELLYDOB: [birth year] (84 yo F)Acc No.[id number]:08/05/2024 Progress Note Patient:?Vero CONNELLY Provider:?Kaiser Riddle DPM :1940???Age:83 Y???Sex:Female D ate:08/05/2024 Address: [address], [facility], [facility] Pcp:Ismael Davis MD Subjective: * Chief Complaints: [...] surgical procedures to prevent recurrence.? * Procedure Codes:?48844 Avuls ion Plate, Modifiers: T1 * Follow Up:?3 Months * Images: * The named appointment provid er may or may not be the originator of this progress note, and it is not deemed complete until electronically signed by the appointment provider. Sign off status: Pending * Provider:Alexander Riddle DPM Date:? 024 Generated for Astrid mello/Jason/Rhett on:?10/18/2024 12:34 PM EST History and Physical Notes * [...]
--- OUTSIDE RECORDS SUMMARY | 2024-10-18 12:34 | XMS_ITS ---
Author Organization [facility] [place] Address [address] [facility] [place] [address] Care Team Providers Care Felt Hanger Name Role Phone Ismael Davis MD Primary Care Provider Kaiser Cerna Unavailable [phone] Allergies Allergen (clinical drug ingredient) Drug/Non Drug [...] an other tobacco user? No Vital Signs Blood pressure systolic 138 mm Hg 05/03/20 24 Blood pressure diastolic 70 mm Hg 024 Height 4ft 11in in 05/03/2024 Weight 160 lbs 05/03/2024 BMI 32.31 kg/m2 05/03/2024 Encounters Encounter Location Date Provider Diagnosis [facility] [place] [address] [place] [address] 05/03/2024 Kaiser Riddle Tinea unguium B35.1 ; [...] * Vero CONNELLYDOB: [birth year] (83 yo F)Acc No.[id number]:05/03/2024 Progress Note Patient:?DarrellAguilaly Provider:?Kaiser Riddle DPM :1940???Age:83 Y???Sex:Female D ate:05/03/2024 Address:[address], [place] , [place] Pcp:Ismael Davis MD Subjective: * Chief Complaints: [...] Cramps/ Resting?denies.?Muscle cramps / walking?denies.?Generalized aches and pains?denies.?Weakness?denies.?Integ.:?Nogueiar?denies.?Scars?denies.?Corns/calluses?admits.?Ingrown nails?denies.?Painful nails?denies.?Open Sores?denies.?Rashes?denies.?Neurologic:?Difficulty sleeping?denies.?Brain disorder?denies.?Numbness?denies.?Balance trouble?denies.?Confusion?denies.?Fainting/blackouts?denies.?Tingling?denies.?Tr emors?denies.? [...] Exercise. ?Marital status: . ?Occupation: retired- people [employer]. * Medications:?TakingAlendrona te Sodium 70 MG Tablet [...] surgical procedures to prevent recurrence.? * Procedure Codes:?49229 Avuls ion Plate, Modifiers: T1 * Preventive [...] DPM Date:? 024 Generated for Astrid mello/Faxing/eTransmitting on:?10/18/2024 12:34 PM EST History and Physical [...]
--- OUTSIDE RECORDS SUMMARY | 2024-10-18 12:34 | XMS_ITS | Patient Health Record ---
[facility] Address [address] [facility] [place] [address] Care Team Providers Care Wan Support Specialist Name Role Phone Ismael Davis MD Primary Care Provider Kaiser Cerna Unavailable [phone] Allergies Allergen (clinical drug ingredient) Drug/Non Drug [...] Status Risk Notes Problem Acquired hallux valgus (50100375) Hallux valgus (acquired), left foot (M20.12) Active confirmed Problem Acquired hallux valgus (81429504) Hallux valgus (acquired), right foot (M20.11) Active confirmed Problem Plantar fascial fibromatosis (54002907) 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 Problem Acquired hammer toe of right foot (750833211059709 5) Other hammer toe(s) (acquired), right foot (M20.41) Active confirmed Problem Acquired hammer toe of left foot (799391502806295 3) Other hammer toe(s) (acquired), left foot (M20.42) Active confirmed Vital Signs Blood pressure diastolic 70 mm Hg 05/03/2024 Height 4ft 11in in 05/03/2024 Blood pressure systolic 138 mm Hg 05/03/2024 Weight 160 lbs 05/03/2024 BMI 32.31 kg/m2 05/03/2024 Encounters Encounter Location Date Provider Diagnosis [facility] [address] [place] [address] 12/04/2023 Kaiser Riddle Tinea unguium B35.1 ; [...] nail L60.0 and Plantar fascial fibromatosis M72.[address] [facility] [address] 01/05/2024 Kaiser Riddle Tinea unguium B35.1 ; [...] nail L60.0 and Plantar fascial fibromatosis M72.[address] [address] 05/03/2024 Kaiser Riddle Tinea unguium B35.1 ; [...] nail L60.0 and Plantar fascial fibromatosis M72.[address] [address] 12/04/[address] [address] 08/03/2024 Kaiser Riddle Assessments Encounter Date Diagnosis [...] Date [facility] [place] Medicare Advantage [facility] [address] [facility] [place] [address] [phone] [id number] Veor Ramírez Self - patient is the insured Medical (General) History Medical History History ICD Code Arthritis Back,Hip,and Knee pain Depression Headaches/Migraines Kidney disease Measles Mumps Chicken pox Surgical History Surgery Date(Month/Year) hysterectomy gall bladder Hospitalization History Reason Date(Month/Year) [facility]- Bee sting 04/23/24 [facility]- Rheumatoid arthritis 11/2023
== END 2024-10-18 11:49 | disposition home or self-care (01) ==
PROVIDERS: PCP Internal Medicine; Visit Provider Physician Assistant
DX: M47.896 Other spondylosis, lumbar region (principal); S22.000A Wedge compression fracture of unspecified thoracic vertebra, initial encounter for closed fracture
CPT/HCPCS: 99204

== ENCOUNTER → 2024-10-18 11:00 | Outpatient (BNVA) | payer MEDICARE, SELFPAY | PROVIDERS: PCP Internal Medicine; Visit Provider Physician Assistant | DX: S22.000A Wedge compression fracture of unspecified thoracic vertebra, initial encounter for closed fracture (principal) | CPT/HCPCS: 99202 ==

== ENCOUNTER 2024-10-20 18:13 | Outpatient (REF) | payer MEDICARE, SELFPAY ==
--- NOTE | ~2024-10-20 | MR_ITS ---
EXAMINATION: MR THORACIC SPINE WITHOUT IV CONTRAST HISTORY: S22.000A - Wedge compression fracture of unspecified thoracic vertebra, .... TECHNIQUE: Sagittal T1, T2, STIR, and axial T2-weighted MR images of the thoracic spine were obtained. COMPARISON: Correlation is made with a CT of the thoracic spine dated 10/09/2024. FINDINGS: There is a mild acute compression fracture involving the superior endplate of T11 with associated bone marrow edema. There is approximately 25% loss of height of the vertebral body. There is no retropulsion of fracture fragments. The remaining thoracic vertebral bodies maintain normal height and marrow signal intensity. Alignment is anatomic. There is diffuse moderate degenerative disc disease with disc desiccation, loss of disc height, and mild spurring. There is no evidence of disc herniation, central spinal stenosis, or neural foraminal narrowing. The spinal cord demonstrates normal signal intensity. The visualized paraspinal soft tissues are unremarkable. MR/MR thoracic spine wo con IMPRESSION: Acute mild compression fracture involving the superior endplate of T11 as described. Is moderate degenerative disc disease. Electronically signed by: Gary Milan MD 10/21/2024 07:43 AM EST
--- NOTE | ~2024-10-20 | MR_ITS ---
EXAMINATION: MR LUMBAR SPINE WITHOUT IV CONTRAST History: M43.16 - Spondylolisthesis, lumbar region Technique: Sagittal T1, T2 and STIR, and axial T1 and T2 weighted images of the lumbar spine were obtained per departmental protocol. Comparison: None available. Findings: Again seen is a mild acute compression fracture of T11 as noted on MRI of the thoracic spine. The lumbar vertebral bodies maintain normal height. There is grade II spondylolisthesis of L4 on L5. There is severe degenerative disc disease at this level with disc desiccation, loss of disc height, and endplate changes. Milder changes are noted at the remaining levels. At T12-L1,there is no evidence of disc herniation, central spinal stenosis, or neural foraminal narrowing. At L1-2, there is no evidence of disc herniation, central spinal stenosis, or neural foraminal narrowing. At L2-3, there is a mild disc bulge. There is mild facet and ligamentum flavum hypertrophy without central spinal or neural foraminal stenosis. At L3-4, there is a diffuse moderate disc bulge. There is severe facet osteoarthritis and mild epidural lipomatosis. This causes severe central spinal stenosis. There is mild bilateral neural foraminal narrowing. At L4-5, there is uncovering of the intervertebral discs secondary to spondylolisthesis. There is severe facet osteoarthritis with resultant severe central spinal stenosis and bilateral neural foraminal narrowing. At L5-S1, there is a diffuse moderate disc bulge. There is severe facet osteoarthritis causing narrowing of the bilateral neural foramen. No central spinal stenosis. The conus terminates at the T12-L1 level and demonstrates normal signal intensity. Evaluation of the paraspinal soft tissues demonstrates bilateral renal cortical and left renal parapelvic cysts. MR/MR lumbar spine wo con Impression: 1. Mild acute compression fracture T11. 2. Severe central spinal stenosis at L3-4 secondary to a diffuse disc bulge, severe facet osteoarthritis, and mild epidural lipomatosis. 3. Severe central spinal stenosis at L4-5 secondary to grade II spondylolisthesis and severe facet osteoarthritis. 4. Bilateral neural foraminal stenosis at L3-4, L4-5, L5-S1. Electronically signed by: Gary Milan MD 10/21/2024 07:50 AM EST
== END 2024-10-20 18:14 | disposition home or self-care (01) ==
LOC: HO.MRI 18:13
PROVIDERS: PCP Internal Medicine; Visit Provider Physician Assistant
DX: S22.000A Wedge compression fracture of unspecified thoracic vertebra, initial encounter for closed fracture (principal); M43.16 Spondylolisthesis, lumbar region
CPT/HCPCS: 72146; 72148

== ENCOUNTER → 2024-10-20 18:18 | Outpatient (BNV) | payer MEDICARE, SELFPAY | PROVIDERS: PCP Internal Medicine; Visit Provider Radiology Diagnostic Radiology | DX: M43.16 Spondylolisthesis, lumbar region (principal); S22.000A Wedge compression fracture of unspecified thoracic vertebra, initial encounter for closed fracture | CPT/HCPCS: 72146; 72148 ==

== ENCOUNTER 2024-11-08 10:07 | Outpatient (AMB) | payer MEDICARE, SELFPAY ==
--- NOTE | 2024-11-08 10:17 | A.OFFVIS_ITS ---
Vital Signs 11/08/24 10:19 Height 5 ft Weight 157 lb BMI 30.7 BP 136/64 Blood Pressure Location Lt brachial Position Sitting Respiration 16 Pulse 77 Pulse Source Pulse Oximeter Pulse Oximetry (%) 97 Oxygen Delivery Method Room Air Intake Visit Reasons: Wedge compression fracture Epic Willow Analyst Required: No Allergies naproxen [NAPROXEN] Allergy (Intermediate, Verified 11/08/24 10:21) BLISTERS IN MOUTH Sulfa (Sulfonamide Antibiotics) [SULFA (SULFONAMIDE ANTIBIOTICS)] Allergy (Intermediate, Verified 11/08/24 10:21) BLISTERS ON TONGUE Medication List - Last Reconciled 11/08/24 by Lisa Hunt LPN acetaminophen ER (Mapap Arthritis Pain) 1 tab PO Q8H PRN albuterol sulfate 90 mcg/actuation (ProAir HFA) 2 puffs inhalation Q6H PRN cefpodoxime 200 mg PO Q12H cholecalciferol (vitamin D3) (Vitamin D3) 25 mcg PO DAILY fexofenadine 180 mg PO DAILY fluticasone propionate 50 mcg/actuation (Allergy Relief (fluticasone)) 1 spray intranasal DAILY folic acid 1 mg PO DAILY hydrochlorothiazide 25 mg PO DAILY levothyroxine 25 mcg PO DAILY lidocaine 5% 1 patch topical DAILY magnesium oxide 400 mg PO DAILY metoprolol tartrate 12.5 mg (1/2 x 25 mg) PO BID omeprazole 20 mg PO DAILY@0630 polyvinyl alcohol 1.4% (Artificial Tears (polyvinyl alcohol)) 2 drps ophthalmic (eye) Q4H PRN potassium chloride ER 10 mEq PO DAILY sertraline 25 mg PO DAILY simvastatin 20 mg PO DAILY [TLSO Cordova TLSO or other comparable orthotic ] tramadol 50 mg PO DAILY PRN HPI HPI Wedge compression fracture: Details: History of Present Illness The patient is an 84-year-old female presenting with chronic back and right shoulder pain. Her back pain originated from a fall at home in September, where she felt dizzy and was subsequently diagnosed with a T11 compression fracture. The MRI revealed hyperintensity at T11 verifying the acute fracture. Post-fall, she has been experiencing thoracic and lumbar spine pain, with difficulty standing and ambulating. Her pain is rated 10 out of 10 in the morning and an aching stabbing sensation radiates from her mid-back to the right leg, with exacerbation upon certain activities like walking. Additionally, she endures chronic low back pain due to lumbar spondylolisthesis and lumbar stenosis. Her prescription of Tylenol and tramadol has provided minimal relief. She was prescribed a thoracolumbar brace which she uses sporadically due to discomfort. She also reports right arm pain which escalated after the fall, causing considerable functional limitations such as weakness and impaired movement in the shoulder, likely contributed by right shoulder rotator cuff and biceps tendinitis. The patient has osteoporosis treated with alendronate. Pain Description - Onset and Timing: Chronic pain beginning post-fall in September. - Quality and Character: Aching, stabbing sensation. - Primary Location: Mid-back (T11) and lower back. - Radiation: Pain radiating to the right leg, right shoulder, and arm. - Exacerbating Factors: Morning time, standing straight, excessive walking, and certain physical activities. - Relieving Factors: Usage of a walker and chair. - Interference: Impedes getting up from sleeping position, performing daily activities, and independent ambulation. Physical Exam - Musculoskeletal- Exquisite tenderness over T11 spinous process. - Musculoskeletal (Right Shoulder)- Significantly limited range of motion; unable to extend beyond 60-80 degrees, tenderness over the bicipital groove, tenderness in the rotator cuff region, weakness in right hand, inability to flex the biceps. Results - Tests and Diagnostics: MRI of the spine confirming T11 compression fracture and lumbar spinal stenosis due to L4-5 spondylolisthesis. X-ray of the right shoulder conducted in 2022, reported without explicit abnormalities for current visit. Pain Management - Affect: Pain significantly impacts functional ability, particularly ambulating and positioning during sleep. - Analgesia: Current medications include Tylenol and tramadol; reports persistent high pain level of 10/10 in the morning. - Adverse Effects: Discomfort from thoracolumbar brace. - Activities of Daily Living: Severely obstructs various daily tasks and sleep; requires assistance from a walker. - Aberrant Drug Related Behaviors: Concerns over tramadol, considering additional prescription needs. [facility] Medical History Dyspnea on exertion Bronchitis Hyperlipidemia Hypertension Polymyalgia rheumatica Surgical History Hx of cholecystectomy Hx of hysterectomy Family History Mother CHF (congestive heart failure) Social History Household Members: Spouse Housing: House Do you presently have visiting nurse or other home services: No Alcohol intake: current Alcohol intake frequency: holidays/special occasions only Patient Tobacco Use Status: Former Tobacco user Tobacco use type: Cigarette Cigarettes Per Day: 15 Years Smoked: 4 e-Cigarette/Vaping Use: Never Used Second Hand Smoke Exposure: No Substance Use Type: Marijuana Advance Directives Date on File: 11/24/23 service: No Current occupational status: retired Physical Exam Vital Signs: Last Vital Signs Pulse 77 11/08/24 10:19 Resp 16 11/08/24 10:19 BP 136/64 11/08/24 10:19 Pulse Ox 97 11/08/24 10:19 Oxygen Delivery Method Room Air 11/08/24 10:19 BMI result Body Mass Index 30.7 Assessment & Plan Assessment & Plan (1) Spondylolisthesis, lumbar region: Code(s): M43.16 - Spondylolisthesis, lumbar region Category: Medical (2) Right rotator cuff tendinitis: Code(s): M75.81 - Other shoulder lesions, right shoulder Category: Medical (3) Compression fracture of body of thoracic vertebra: Code(s): S22.000A - Wedge compression fracture of unspecified thoracic vertebra, initial encounter for closed fracture Category: Medical (4) Lumbar radicular pain: Code(s): M54.16 - Radiculopathy, lumbar region Category: Medical Plan Plan - Proceed with the lumbar spine L4-5 epidural steroid injection to address low back and radicular pain. - Plan for subsequent right shoulder subacromial bursa corticosteroid injection for pain management. - Continue monitoring osteoporosis with alendronate therapy, adjusting as necessary based on pain management needs. - Re-evaluate need for kyphoplasty based on future symptomatology alterations. Patient was informed and verbally consented to the use of an ambient scribe for clinic note documentation during this visit. Discussion Notes I discussed with the patient the diagnosis of lumbar spine stenosis secondary to lumbar spondylolisthesis, thoracic spine fracture, and shoulder tendinitis. We covered the benefits of initiating with a lumbar epidural steroid injection, noting the necessity of minimizing corticosteroid use due to osteoporosis concerns. I advised considering shoulder injection as a secondary step and held off on kyphoplasty unless mid-back pain becomes more disruptive. The patient expressed understanding and consented to the management plan, particularly desiring relief in back pain to improve daily functionality. We arranged to contact her for scheduling injections and considered tramadol management through primary care. Patient Instructions - Expect a call to schedule epidural steroid injection. - Use the walker for ambulation to prevent further injury. - Wear the thoracolumbar brace when tolerable to aid in stabilization. - Inform me if mid-back pain worsens or becomes more bothersome. - Consult primary care physician if a tramadol prescription is needed. - Avoid driving immediately after injections, arrange for transport home. - Report any sudden changes or increased pain to the clinic immediately. Coding Level of Care Code New Pt Level 4 (54881) Diagnoses Spondylolisthesis, lumbar region M43.16 Right rotator cuff tendinitis M75.81 Compression fracture of body of thoracic vertebra S22.000A Lumbar radicular pain M54.16
[2024-11-08 10:19] VITALS: BP 136/64; PULSE 77; RESP 16; O2SAT 97; BMI 30.7
--- OUTSIDE RECORDS SUMMARY | 2024-11-08 14:40 | XMS_ITS | Encounter Summary ---
Author Organization [facility] Address [address] [place] [address] Care Team Providers Care Director Of Staff Development Name Role Phone Jose Lopez MD Primary Care Provider Unavail able Javier Eller MD Primary Care Provider [phone] Encounter Details Date Type Department Care Team Description 01/19/2019 Telephone Adult Medicine - [place] [address] [place] [address] Bertha Lombardi MD [address] [place] [address] Social History Tobacco Use Types Packs/Day Years Used Date Smoking Tobacco: Former Cigarettes 0.8 28 Q uit: 10/13/1984 Smokeless Tobacco: Former Comments:quit in 1987 starte d smoking at 19 Alcohol Use Standard Drinks/Week Comments Yes 0 (1 standard drink = 0.6 oz pur e alcohol) rare Sex Assigned at Date Recorded Not on file documented as of this encounter Plan of Treatment Not on file documented as of this encounter Visit Diagnoses Not on filedocumented in this encounter Care Teams Director Of Staff Development Relationship Specialty Start Date End Date Jose Lopez MD PCP - General Internal Medicine 01/19/19 04/11/20 Javier Eller MD [address] [place] [address] [id number] PCP - General Internal Medicine 04/12/20 documented as of this encounter
--- OUTSIDE RECORDS SUMMARY | 2024-11-08 14:40 | XMS_ITS | Encounter Summary ---
Author Organization [facility] Address [address] [place] [address] Care Team Providers Care Manager User Experience Name Role Phone Name, Rafael TAVERA Primary Care Provider Christal Piedra MD Primary Care Provider Africa Ibrahim MD Primary Care Provider Un available Jose Lopez MD Primary Care Provider Unavail Javier Patel MD Primary Care Provider [phone] Reason for Visit * Reason Onset Date Comments radiology 04/23/2013 mri testing. Encounter Details Date Type Department Care Team Description 04/23/2013 Telephone Rheumatology - [address] [id number] Randolph Layne MD radiology (mri testing.) Social History Tobacco Use Types Packs/Day Years Used Date Smoking Tobacco: Former Cigarettes 0.8 28 Smokeless Tobacco: Former Comments:quit in 1987 starte d smoking at 19 Alcohol Use Standard Drinks/Week Comments No 0 (1 standard drink = 0.6 oz pur e alcohol) Sex Assigned at Date Recorded Not on file documented as of this encounter Miscellaneous Notes * Telephone Encounter - Ga Wood - 04/23/2013 4:11 PM EDT Vero is aware that she needs to have labs done, she will get this done before Friday04/27/13. * Telephone Encounter - Randolph Layne MD - 04/23/2013 12:48 PM EDT Lab work ordered. Are you going to tell her to go to lab? Dr. Layne * Telephone Encounter - Ga Wood - 04/23/2013 11:[address] Layne, the mri of the brain you requested will be done with contrast, can you please ordera BUN and Creatinine for Vero Ramírez? Her mri appointment is schedule for Friday04/27/13 at 11:30 AM. Thanks. documented in this encounter Plan of Treatment Not on file documented as of this encounter Results * CREATININE, BLOOD ASSAY (04/26/2013 7:55 AM EDT) CREAT 0.7 0.7 - 1.5 mg/dL 04/26/2013 12:13 PM EDT [facility] GFR > 60 >60 04/26/2013 12:13 PM EDT [facility] Comment: If patient is -Tristanian, multiply result by 1.21 Chronic Kidney Disease: < 60 ml/min/1.73 square meters Kidney Failure: < 15 ml/min/1.73 square meters 04/26/2013 7:55 AM EDT 04/26/2013 7:55 AM EDT Randolph Layne MD LAB [address] * BLOOD UREA NITROGEN (BUN) (04/26/2013 7:55 AM EDT) BUN 23 5 - 25 mg/dL 04/26/2013 12:09 PM EDT [facility] 04/26/2013 7:55 AM EDT 04/26/2013 7:55 AM EDT Randolph Layne MD LAB [address] documented in this encounter Visit Diagnoses Diagnosis Encounter for long-term (current) use of other medications- Primary documented in this encounter Care Teams Manager User Experience Relationship Specialty Start Date End Date Name, MD Rafael PCP - General 12/13/09 11/14/15 Christal Celestin MD PCP - General Internal Medicine 11/15/15 11/30/18 Africa Blankenship MD PCP - General Internal Medicine 12/01/18 9 Jose Lopez MD PCP - General Internal Medicine 01/19/19 04/11/20 Javier Eller MD [address] [place] [id number] PCP - General Internal Medicine 04/12/20 documented as of this encounter
--- OUTSIDE RECORDS SUMMARY | 2024-11-08 14:40 | XMS_ITS | Encounter Summary ---
Author Organization [facility] Address [address] [place] [address] Care Team Providers Care Sock Mender Name Role Phone Name, Rafael TAVERA Primary Care Provider Christal Piedra MD Primary Care Provider Africa Ibrahim MD Primary Care Provider Un available Jose Lopez MD Primary Care Provider Unavail able Javier Eller MD Primary Care Provider [phone] Encounter Details Date Type Department Care Team Description 05/29/2012 Object Oriented Developer Report Medical Records [address] [place] [id number] Raysa Brunson, JOSH Social History Tobacco Use Types Packs/Day Years Used Date Smoking Tobacco: Former Cigarettes 0.8 28 Smokeless Tobacco: Former Comments:quit in 1987 kali mckeon smoking at 19 Alcohol Use Standard Drinks/Week Comments No 0 (1 standard drink = 0.6 oz pur e alcohol) Sex Assigned at Date Recorded Not on file documented as of this encounter Plan of Treatment Not on file documented as of this encounter Visit Diagnoses Not on filedocumented in this encounter Care Teams Sock Mender Relationship Specialty Start Date End Date Name, MD Rafael PCP - General 12/13/09 11/14/15 Christal Celestin MD PCP - General Internal Medicine 11/15/15 11/30/18 Africa Blankenship MD PCP - General Internal Medicine 12/01/18 9 Jose Lopez MD PCP - General Internal Medicine 01/19/19 04/11/20 Javier Eller MD [address] [place] [address] [id number] PCP - General Internal Medicine 04/12/20 documented as of this encounter
--- OUTSIDE RECORDS SUMMARY | 2024-11-08 14:40 | XMS_ITS | Encounter Summary ---
Author Organization [facility] Address [address] [place] [address] Care Team Providers Care Respiratory Therapy Instructor Name Role Phone Name, Rafael TAVERA Primary Care Provider Christal Piedra MD Primary Care Provider Africa Ibrahim MD Primary Care Provider Un available Jose Lopez MD Primary Care Provider Unavail able Javier Eller MD Primary Care Provider [phone] Encounter Details Date Type Department Care Team Description 09/06/2014 Equal Opportunity Counselor Report Medical Records [address] [place] [address] Gael Martinez MD Social History Tobacco Use Types Packs/Day Years [...] on filedocumented in this encounter Care Teams Respiratory Therapy Instructor Relationship Specialty Start Date End Date Name, MD Rafael PCP - General 12/13/09 11/14/15 Christal Celestin MD PCP - General Internal Medicine 11/15/15 11/30/18 Africa Blankenship MD PCP - General Internal Medicine 12/01/18 9 Jose Lopez MD PCP - General Internal Medicine 01/19/19 04/11/20 Javier Eller MD [address] [place] [address] [id number] PCP - General Internal Medicine 04/12/20 documented as of this encounter
--- OUTSIDE RECORDS SUMMARY | 2024-11-08 14:40 | XMS_ITS | Encounter Summary ---
Author Organization [facility] Address [address] [place] [address] Care Team Providers Care Weather Algorithm Scientist Name Role Phone Name, Rafael TAVERA Primary Care Provider Christal Piedra MD Primary Care Provider Africa Ibrahim MD Primary Care Provider Un available Jose Lopez MD Primary Care Provider Unavail Javier Patel MD Primary Care Provider [phone] Reason for Visit * Reason Onset Date Comments Wrist Pain 05/12/2014 fell, hurt right wrist Encounter Details Date Type Department Care Team Description 05/12/2014 Telephone Adult [address] [phone] Name, MD Rafael Wrist Pain (fell, hurt right wrist) Social History Tobacco Use Types Packs/Day Years Used Date Smoking Tobacco: Former Cigarettes 0.8 28 Smokeless Tobacco: Former Comments:quit in 1987 starte d smoking at 19 Alcohol Use Standard Drinks/Week Comments No 0 (1 standard drink = 0.6 oz pur e alcohol) Sex Assigned at Date Recorded Not on file documented as of this encounter Miscellaneous Notes * Telephone Encounter - Umm Alfaro R.N. - 05/12/2014 10:27 AM EDT Pt Was trying to crush a box while standing on it lost her balance, she fell , breaking her fall with her outstretched hand, has had hand pain since with numbness pain thumb Pt has no other injuries, denies any chest pain or SOB, has no other injuries, she has pain att he base of the thumb radiating to the wrist, she C/O numbness in her thumb and decreased strength in her thumb, is able to move her fingers and wrist but has pain Pt to see linda alfaro at 1;00 today * Telephone Encounter - Eva Delon - 05/12/2014 9:05 AM EDT Symptoms patient is presenting: right wrist pain How long has patient had these symptoms?: fell on Friday05/09/14 PCP: Rafael Name Payor: [facility] FFS / Plan: [facility] MEDICARE PLUS $15 PERRY / Product Type: MEDICARE [id number] documented in this encounter Plan of Treatment Not on file documented as of this encounter Visit Diagnoses Not on filedocumented in this encounter Care Teams Weather Algorithm Scientist Relationship Specialty Start Date End Date Name, MD Rafael PCP - General 12/13/09 11/14/15 Christal Celestin MD PCP - General Internal Medicine 11/15/15 11/30/18 Africa Blankenship MD PCP - General Internal Medicine 12/01/18 9 Jose Lopez MD PCP - General Internal Medicine 01/19/19 04/11/20 Javier Eller MD [address] [place] [id number] PCP - General Internal Medicine 04/12/20 documented as of this encounter
--- OUTSIDE RECORDS SUMMARY | 2024-11-08 14:40 | XMS_ITS | Encounter Summary ---
Author Organization [facility] Address [address] [place] [address] Care Team Providers Care Supervisor Cigar Processing Name Role Phone Christal Celestin MD Primary Care Provider Africa Ibrahim MD Primary Care Provider Un available Jose Lopez MD Primary Care Provider Javier Jurado MD Primary Care Provider [phone] Reason for Visit * Reason Comments E-prescribe Rx Request Encounter Details Date Type Department Care Team Description 11/29/2018 Refill Adult Medicine [address] [address] Vibha Vazquez PA-C [address] [place] [address] E-prescribe Rx Request Social History Tobacco Use Types Packs/Day Years Used Date Smoking Tobacco: Former Cigarettes 0.8 28 Smokeless Tobacco: Former Comments:quit in 1987 starte d smoking at 19 Alcohol Use Standard Drinks/Week Comments Yes 0 (1 standard drink = 0.6 oz pur e alcohol) rare Sex Assigned at Date Recorded Not on file documented as of this encounter Miscellaneous Notes * Telephone Encounter - Marleni Iniguez M.A. - 11/30/2018 1:25 PM EST Lab Results Component Value Date NA 142 06/09/2018 K 4.5 06/09/2018 CO2 26.4 06/09/2018 CL 104 06/09/2018 BUN 12 06/09/2018 CREAT 0.8 06/09/2018 GLU 93 06/09/2018 CA 9.6 06/09/2018 GFR > 60 06/09/2018 Pending ov with pcp 12/03/18 Please review for pcp * Telephone Encounter - Dina Flecammy - 11/30/2018 10:40 AM EST Patient would like script to be: E-PRESCRIBED/FAXED TO PHARMACY WHEN WAS THE PATIENT'S LAST APPOINTMENT IN ADULT MEDICINE? 06/09/18 WHEN WAS THE LAST TIME THE PATIENT SAW THEIR PCP? 12/25/17 Does patient have an upcoming appointment? Yes 12/03/18 (THE MEDICATION REQUESTED IS ON THE MED LIST ABOVE) All of the medications requested were on the CURRENT MEDS list Did you check the Pharmacy information above?: YES Patient wants: 30 -day supply Is this a mail order prescription request ? NO If the refill is from a FAXED refill request what is the RX # listed on the fax? N/A Patients current insurance carrier is: Payor: [facility] FFS / Plan: [facility] MEDICARE PREMIUM $10 [place] / Product Type: MEDICARE [id number] documented in this encounter Plan of Treatment Not on file documented as of this encounter Visit Diagnoses Not on filedocumented in this encounter Care Teams Supervisor Cigar Processing Relationship Specialty Start Date End Date Christal Celestin MD PCP - General Internal Medicine 11/15/15 11/30/18 Africa Blankenship MD PCP - General Internal Medicine 12/01/18 9 Jose Lpoez MD PCP - General Internal Medicine 01/19/19 04/11/20 Javier Eller MD [address] [place] [id number] PCP - General Internal Medicine 04/12/20 documented as of this encounter
--- OUTSIDE RECORDS SUMMARY | 2024-11-08 14:40 | XMS_ITS | Encounter Summary ---
Author Organization [facility] Address [address] [place] [address] Care Team Providers Care Mine Promotor Name Role Phone Name, Rafael TAVERA Primary Care Provider Christal Piedra MD Primary Care Provider Africa Ibrahim MD Primary Care Provider Un available Jose Lopez MD Primary Care Provider Unavail able Javier Eller MD Primary Care Provider [phone] Encounter Details Date Type Department Care Team Description 02/21/2012 Pet Care Technician Report Medical Records [address] [place] [address] Florian Reina MD, MD Social History Tobacco Use Types Packs/Day Years Used Date Smoking Tobacco: Former Cigarettes 0.8 28 Comments:quit in 1987 kali d smoking at 19 Alcohol Use Standard Drinks/Week Comments No 0 (1 standard drink = 0.6 oz pur e alcohol) Sex Assigned at Date Recorded Not on file documented as of this encounter Plan of Treatment Not on file documented as of this encounter Visit Diagnoses Not on filedocumented in this encounter Care Teams Mine Promotor Relationship Specialty Start Date End Date Name, MD Rafael PCP - General 12/13/09 11/14/15 Christal Celestin MD PCP - General Internal Medicine 11/15/15 11/30/18 Africa Blankenship MD PCP - General Internal Medicine 12/01/18 9 Jose Lopez MD PCP - General Internal Medicine 01/19/19 04/11/20 Javier Eller MD [address] [place] [address] [id number] PCP - General Internal Medicine 04/12/20 documented as of this encounter
--- OUTSIDE RECORDS SUMMARY | 2024-11-08 14:40 | XMS_ITS | Encounter Summary ---
Author Organization [facility] Address [address] [place] [address] Care Team Providers Care Asbestos Shingle Inspector Name Role Phone Christal Celestin MD Primary Care Provider Africa Ibrahim MD Primary Care Provider Un available Jose Lopez MD Primary Care Provider Unavail able Javier Eller MD Primary Care Provider [phone] Encounter Details Date Type Department Care Team Description 01/18/2016 Business Doc Medical Records [address] [place] [id number] Abstract, Provider Social History Tobacco Use Types Packs/Day Years [...] on filedocumented in this encounter Care Teams Asbestos Shingle Inspector Relationship Specialty Start Date End Date Christal Celestin MD PCP - General Internal Medicine 11/15/15 11/30/18 Africa Blankenship MD PCP - General Internal Medicine 12/01/18 9 Jose Lopez MD PCP - General Internal Medicine 01/19/19 04/11/20 Javier Eller MD [address] [place] [id number] PCP - General Internal Medicine 04/12/20 documented as of this encounter
--- OUTSIDE RECORDS SUMMARY | 2024-11-08 14:40 | XMS_ITS | Encounter Summary ---
Author Organization [facility] Address [address] [place] [address] Care Team Providers Care General Expeditor Name Role Phone Name, Rafael TAVERA Primary Care Provider Christal Piedra MD Primary Care Provider Africa Ibrahim MD Primary Care Provider Un available Jose Lopez MD Primary Care Provider Unavail able Javier Eller MD Primary Care Provider [phone] Encounter Details Date Type Department Care Team Description 10/25/2010 Eye Anaesthesiologist Report Medical Records [address] [place] [address] Javi Bronson Social History Tobacco Use Types Packs/Day Years Used Date Smoking Tobacco: Former Cigarettes 0.8 28 Comments:quit in 1987 kali mckeon smoking at 19 Alcohol Use Standard Drinks/Week Comments No 0 (1 standard drink = 0.6 oz pur e alcohol) Sex Assigned at Date Recorded Not on file documented as of this encounter Plan of Treatment Not on file documented as of this encounter Visit Diagnoses Not on filedocumented in this encounter Care Teams General Expeditor Relationship Specialty Start Date End Date Name, MD Rafael PCP - General 12/13/09 11/14/15 Christal Celestin MD PCP - General Internal Medicine 11/15/15 11/30/18 fArica Blankenship MD PCP - General Internal Medicine 12/01/18 9 Jose Lopez MD PCP - General Internal Medicine 01/19/19 04/11/20 Javier Eller MD [address] [place] [address] [id number] PCP - General Internal Medicine 04/12/20 documented as of this encounter
--- OUTSIDE RECORDS SUMMARY | 2024-11-08 14:40 | XMS_ITS | Encounter Summary ---
Author Organization [facility] Address [address] [place] [address] Care Team Providers Care Inspector Firearms Name Role Phone Name, Rafael TAVERA Primary Care Provider Christal Piedra MD Primary Care Provider Africa Ibrahim MD Primary Care Provider Un available Jose Lopez MD Primary Care Provider Unavail able Javier Eller MD Primary Care Provider [phone] Encounter Details Date Type Department Care Team Description 03/18/2012 Release of Information Medical Records [address] [place] [address] Abstract, Provider Social History Tobacco Use Types [...] on filedocumented in this encounter Care Teams Inspector Firearms Relationship Specialty Start Date End Date Name, MD Rafael PCP - General 12/13/09 11/14/15 Christal Celestin MD PCP - General Internal Medicine 11/15/15 11/30/18 Africa Blankenship MD PCP - General Internal Medicine 12/01/18 9 Jose Lopez MD PCP - General Internal Medicine 01/19/19 04/11/20 Javier Eller MD [address] [place] [address] [id number] PCP - General Internal Medicine 04/12/20 documented as of this encounter
--- OUTSIDE RECORDS SUMMARY | 2024-11-08 14:40 | XMS_ITS | Encounter Summary ---
Author Organization [facility] Address [address] [place] [address] Care Team Providers Care Weight Guesser Name Role Phone Jose Lopez MD Primary Care Provider Unavail able Javier Eller MD Primary Care Provider [phone] Encounter Details Date Type Department Care Team Description 02/14/2020 Telephone Adult Medicine [address] [address] Jose Lopez MD Social History Tobacco Use Types Packs/Day [...] on filedocumented in this encounter Care Teams Weight Guesser Relationship Specialty Start Date End Date Jose Lopez MD PCP - General Internal Medicine 01/19/19 04/11/20 Javier Eller MD [address] [place] [address] PCP - General Internal Medicine 04/12/20 documented as of this encounter
--- OUTSIDE RECORDS SUMMARY | 2024-11-08 14:40 | XMS_ITS | Encounter Summary ---
Author Organization [employer] [facility] Address [address] [place] [address] Care Team Providers Care General Office Associate Name Role Phone Javier Eller MD Primary Care Provider [phone] Reason for Visit * Reason Onset Date Comments Annual Wellness Outreach 07/18/2021 Encounter Details Date Type Department Care Team Description 07/18/2021 Telephone Adult [address] [address] Kalyani Chin PA-C Annual Wellness Outreach Social History Tobacco Use Types Packs/Day Years Used Date Smoking Tobacco: Former Cigarettes 0.8 28 0 10/13/1956 - 10/13/1984 Smokeless Tobacco: Former Comments:quit in 1987 starte d smoking at 19 Alcohol Use Standard Drinks/Week Comments Yes 0 (1 standard drink = 0.6 oz pur e alcohol) rare Sex Assigned at Date Recorded Not on file documented as of this encounter Miscellaneous Notes * Telephone Encounter - Gloria Dickens - 07/18/2021 3:38 PM EDT Ms. Ramírez was contacted by telephone. First attempt pt excluded stated not with [employer] anymore stop calling. documented in this encounter Plan of Treatment Not on file documented as of this encounter Visit Diagnoses Not on filedocumented in this encounter Care Teams General Office Associate Relationship Specialty Start Date End Date Javier Eller MD [address] [place] [address] PCP - General Internal Medicine 04/12/20 documented as of this encounter
--- OUTSIDE RECORDS SUMMARY | 2024-11-08 14:40 | XMS_ITS | Encounter Summary ---
Author Organization [facility] Address [address] [place] [address] Care Team Providers Care Printed Circuit Boards Beveler Name Role Phone Name, Rafael TAVERA Primary Care Provider Christal Piedra MD Primary Care Provider Africa Ibrahim MD Primary Care Provider Un available Jose Lopez MD Primary Care Provider Unavail able Javier Eller MD Primary Care Provider [phone] Encounter Details Date Type Department Care Team Description 05/17/2014 Sales Review Clerk Report Medical Records [address] [place] [address] Hyacinth Momin MD Social History Tobacco Use Types Packs/Day [...] on filedocumented in this encounter Care Teams Printed Circuit Boards Beveler Relationship Specialty Start Date End Date Name, MD Rafael PCP - General 12/13/09 11/14/15 Christal Celestin MD PCP - General Internal Medicine 11/15/15 11/30/18 Africa Blankenship MD PCP - General Internal Medicine 12/01/18 9 Jose Lopez MD PCP - General Internal Medicine 01/19/19 04/11/20 Javier Eller MD [address] [place] [address] [id number] PCP - General Internal Medicine 04/12/20 documented as of this encounter
--- OUTSIDE RECORDS SUMMARY | 2024-11-08 14:40 | XMS_ITS | Encounter Summary ---
Author Organization [facility] Address [address] [place] [address] Care Team Providers Care Roof Bolter Operator Name Role Phone Jose Lopez MD Primary Care Provider [facility] Javier Patel MD Primary Care Provider [phone] Reason for Visit * Reason Onset Date Comments refill request 09/28/2019 Encounter Details Date Type Department Care Team Description 09/28/2019 Refill Adult Medicine [address] [id number] Jose Lopez MD refill request Social History Tobacco Use Types Packs/Day Years [...] encounter Miscellaneous Notes * Telephone Encounter - Anni Leon - 09/28/2019 9:33 AM EST Lab Results Component Value Date NA 137 07/20/2019 K 3.7 07/20/2019 CO2 31 07/20/2019 CL 98 07/20/2019 BUN 19 07/20/2019 CREAT 0.93 07/20/2019 GLU 86 07/20/2019 CA 9.6 07/20/2019 GFR 59 07/20/2019 * Telephone Encounter - Deisy Ayaan - 09/28/2019 9:31 AM EST Patient would like script to be: E-PRESCRIBED/FAXED TO PHARMACY WHEN WAS THE PATIENT'S LAST APPOINTMENT IN ADULT MEDICINE? 06/19/19 WHEN WAS THE LAST TIME THE PATIENT SAW THEIR PCP? 01/19/19 Does patient have an upcoming appointment? Yes 10/12/19 (THE MEDICATION REQUESTED IS ON THE MED LIST ABOVE) All of the medications requested were on the CURRENT MEDS list Did you check the Pharmacy information above?: YES Patient wants: 90 -day supply Is this a mail order prescription request ? NO If the refill is from a FAXED refill request what is the RX # listed on the fax? N/A Patients current insurance carrier is: Payor: [facility] FFS / Plan: [place] MED[place]ARE PREMIUM $10 [place] / Product Type: MEDICARE [id number] documented in this encounter Plan of Treatment Not on file documented as of this encounter Visit Diagnoses Not on filedocumented in this encounter Care Teams Roof Bolter Operator Relationship Specialty Start Date End Date Jose Lopez MD PCP - General Internal Medicine 01/19/19 04/11/20 Javier Eller MD [address] [place] [address] PCP - General Internal Medicine 04/12/20 documented as of this encounter
--- OUTSIDE RECORDS SUMMARY | 2024-11-08 14:40 | XMS_ITS | Encounter Summary ---
Author Organization [facility] Address [address] [place] [address] Care Team Providers Care Warehouse Processor Name Role Phone Christal Celestin MD Primary Care Provider Africa Ibrahim MD Primary Care Provider Un available Jose Lopez MD Primary Care Provider Javier Jurado MD Primary Care Provider [phone] Reason for Visit * Reason Onset Date Comments refill request 01/10/2017 Encounter Details Date Type Department Care Team Description 01/10/2017 Refill Adult Medicine [address] [phone] Christal Celestin MD refill request Social History Tobacco Use [...] encounter Miscellaneous Notes * Telephone Encounter - Jasmine Malik - 01/10/2017 3:37 PM EDT Patient would like script to be: E-PRESCRIBED/FAXED TO PHARMACY WHEN WAS THE PATIENT'S LAST APPOINTMENT IN ADULT MEDICINE? [id number] WHEN WAS THE LAST TIME THE PATIENT SAW THEIR PCP? Same as above Does patient have an upcoming appointment? Yes [id number] (THE MEDICATION REQUESTED IS ON THE MED LIST ABOVE) All of the medications requested were on the CURRENT MEDS list Did you check the Pharmacy information above?: YES Patient wants: 90 -day supply Is this a mail order prescription request ? NO Patients current insurance carrier is: Payor: [facility] FFS / Plan: [place] MEDICARE PREMIUM $15 [place] / Product Type: MEDICARE [id number] documented in this encounter Plan of Treatment Not on file documented as of this encounter Visit Diagnoses Not on filedocumented in this encounter Care Teams Warehouse Processor Relationship Specialty Start Date End Date Christal Celestin MD PCP - General Internal Medicine 11/15/15 11/30/18 Africa Blankenship MD PCP - General Internal Medicine 12/01/18 9 Jose Lopze MD PCP - General Internal Medicine 01/19/19 04/11/20 Javier Eller MD [address] [place] [address] [phone] PCP - General Internal Medicine 04/12/20 documented as of this encounter
--- OUTSIDE RECORDS SUMMARY | 2024-11-08 14:40 | XMS_ITS ---
Author Organization [facility] Address [address] [place] [address] Care Team Providers Care Senior Ui Ux Developer Name Role Phone Ismael Davis MD Primary Care Provider Kaiser Cerna [phone] REASON FOR VISIT Last PCP Visit: 04/26/24, Ingrown nail(s) Medications Medication SIG (Take, Route, Frequency, Duration) Notes Start Date End Date Status Voltaren 1 % as directed Externally Active Night Splint AFO - L1930 as directed Active Problems Problem Type SNOMED Code ICD Code Onset Dates Problem Status W/U Status Risk Notes Problem Plantar fascial fibromatosis (57955051) 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 Encounters Encounter Location Date Provider Diagnosis [facility] [address] [place] [address] 08/05/2024 [facility] Riddle Tinea unguium B35.1 ; [...] * Vero CONNELLYDOB: [birth year] (84 yo F)Acc No.[id number]:08/05/2024 Progress Note Patient:?Vero CONNELLY Provider:?Kaiser Riddle DPM :1940???Age:83 Y???Sex:Female D ate:08/05/2024 Address: [address], [facility], [id number] Pcp:Ismael Davis MD Subjective: * Chief Complaints: [...] surgical procedures to prevent recurrence.? * Procedure Codes:?45619 Avuls ion Plate, Modifiers: T1 * Follow Up:?3 Months * Images: * The named appointment provid er may or may not be the originator of this progress note, and it is not deemed complete until electronically signed by the appointment provider. Sign off status: Pending * Provider:Alexander Riddle DPM Date:? 024 Generated for Astrid mello/Jason/Rhett on:?11/08/2024 02:40 PM EST History and Physical Notes * [...]
--- OUTSIDE RECORDS SUMMARY | 2024-11-08 14:40 | XMS_ITS | Encounter Summary ---
Author Organization [facility] Address [address] [place] [address] Care Team Providers Care Hospice Educator Name Role Phone Christal Celestin MD Primary Care Provider Africa Ibrahim MD Primary Care Provider Un available Jose Lopez MD Primary Care Provider Unavail able Javier Eller MD Primary Care Provider [phone] Encounter Details Date Type Department Care Team Description 06/03/2016 Crane Crew Supervisor Report Medical Records [address] [place] [address] Raysa Brunson NP Social History Tobacco Use Types Packs/Day Years [...] on filedocumented in this encounter Care Teams Hospice Educator Relationship Specialty Start Date End Date Christal Celestin MD PCP - General Internal Medicine 11/15/15 11/30/18 Africa Blankenship MD PCP - General Internal Medicine 12/01/18 9 Jose Lopez MD PCP - General Internal Medicine 01/19/19 04/11/20 Javier Eller MD [address] [place] [address] PCP - General Internal Medicine 04/12/20 documented as of this encounter
--- OUTSIDE RECORDS SUMMARY | 2024-11-08 14:40 | XMS_ITS | Patient Health Record ---
Author [facility] Address [address] [facility] [place] [address] Care Team Providers Care Soyfreeze Operator Name Role Phone Ismael Davis MD Primary Care Provider [facility] Cerna Unavailable [phone] Allergies Allergen (clinical drug ingredient) Drug/Non Drug [...] Status Risk Notes Problem Acquired hallux valgus (35482316) Hallux valgus (acquired), left foot (M20.12) Active confirmed Problem Acquired hallux valgus (70004392) Hallux valgus (acquired), right foot (M20.11) Active confirmed Problem Plantar fascial fibromatosis (07666505) 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 Problem Acquired hammer toe of right foot (076510532663980 5) Other hammer toe(s) (acquired), right foot (M20.41) Active confirmed Problem Acquired hammer toe of left foot (347702544730551 3) Other hammer toe(s) (acquired), left foot (M20.42) Active confirmed Vital Signs Blood pressure diastolic 70 mm Hg 05/03/2024 Height 4ft 11in in 05/03/2024 Blood pressure systolic 138 mm Hg 05/03/2024 Weight 160 lbs 05/03/2024 BMI 32.31 kg/m2 05/03/2024 Encounters Encounter Location Date Provider Diagnosis [facility] [place] [address] [place] [address] 12/04/2023 [facility] Riddle Tinea unguium B35.1 ; [...] nail L60.0 and Plantar fascial fibromatosis M72.[address] [facility] [address] 01/05/2024 [facility] Riddle Tinea unguium B35.1 ; [...] nail L60.0 and Plantar fascial fibromatosis M72.[address] [address] 05/03/2024 [facility] Riddle Tinea unguium B35.1 ; [...] nail L60.0 and Plantar fascial fibromatosis M72.[address] [address] 12/04/[address] [address] 08/03/2024 [facility] Riddle Assessments Encounter Date Diagnosis [...] Date [place] Medicare Advantage [facility] [address] [facility] [place] [address] [id number] Vero Ramírez Self - patient is the insured Medical (General) History Medical History History ICD Code Arthritis Back,Hip,and Knee pain Depression Headaches/Migraines Kidney disease Measles Mumps Chicken pox Surgical History Surgery Date(Month/Year) hysterectomy gall bladder Hospitalization History Reason Date(Month/Year) [place] [facility] [facility] [place]umat[place]23
--- OUTSIDE RECORDS SUMMARY | 2024-11-08 14:40 | XMS_ITS | Encounter Summary ---
Author Organization [facility] Address [address] [place] [address] Care Team Providers Care Public Information Specialist Name Role Phone Christal Celestin MD Primary Care Provider Africa Ibrahim MD Primary Care Provider Un available Jose Lopez MD Primary Care Provider Unavail able Javier Eller MD Primary Care Provider [phone] Encounter Details Date Type Department Care Team Description 05/11/2018 Transfer Records Medical Records [address] [place] [address] Abstract, Provider Social History Tobacco Use Types [...] on filedocumented in this encounter Care Teams Public Information Specialist Relationship Specialty Start Date End Date Christal Celestin MD PCP - General Internal Medicine 11/15/15 11/30/18 Africa Blankenship MD PCP - General Internal Medicine 12/01/18 9 Jose Lopez MD PCP - General Internal Medicine 01/19/19 04/11/20 Javier Eller MD [address] [place] [address] PCP - General Internal Medicine 04/12/20 documented as of this encounter
--- OUTSIDE RECORDS SUMMARY | 2024-11-08 14:41 | XMS_ITS ---
Author Organization [facility] Address [address] [place] [address] Care Team Providers Care Plastic Cnc Machine Operator Name Role Phone Ismael Davis MD Primary Care Provider [facility] Cerna [phone] REASON FOR VISIT cx 08/05 Encounters Encounter Location Date Provider Diagnosis [facility] [address] [place] [address] 08/03/2024 [facility] R[facility] Plan Of Treatment No Information Progress Notes * Vero CONNELLYDOB: [birth year] (83 yo F)Acc No.[id number]:08/03/2024 Patient:?DarrellVero :1940???Age:83 Y???Sex:Female Address:[address], [place], [address] * true * Date:? Generated for Printi funmilayo/Jason/eTransmitting on:?11/08/2024 02:41 PM EST
--- OUTSIDE RECORDS SUMMARY | 2024-11-08 14:41 | XMS_ITS ---
Author Organization [facility] Address [address] [facility] [place] [address] Care Team Providers Care Laminator Printed Circuit Boards Name Role Phone Ismael Davis MD Primary Care Provider Kaiser Cerna Unavailable [phone] Allergies Allergen (clinical drug ingredient) Drug/Non Drug [...] 024 Encounters Encounter Location Date Provider Diagnosis [facility] [place] [address] [place] [address] 05/03/2024 [facility] Riddle Tinea unguium B35.1 ; [...] * Vero CONNELLYDOB: [birth year] (83 yo F)Acc No.[id number]:05/03/2024 Progress Note Patient:?DarrellAguilaly Provider:?Kaiser Riddle DPM :1940???Age:83 Y???Sex:Female D ate:05/03/2024 Address:[address], [place] , [place] Pcp:Ismael Davis MD Subjective: * Chief Complaints: [...] Exercise. ?Marital status: . ?Occupation: retired- people [employer]. * Medications:?TakingAlendrona te Sodium 70 MG Tablet [...] surgical procedures to prevent recurrence.? * Procedure Codes:?54204 Avuls ion Plate, Modifiers: T1 * Preventive [...] DPM Date:? 024 Generated for Astrid mello/Faxing/eTransmitting on:?11/08/2024 02:40 PM EST History and Physical [...]
== END 2024-11-08 11:00 | disposition home or self-care (01) ==
PROVIDERS: PCP Internal Medicine; Referring Provider Physician Assistant; Visit Provider Internal Medicine
DX: M43.16 Spondylolisthesis, lumbar region (principal); M75.81 Other shoulder lesions, right shoulder; S22.000A Wedge compression fracture of unspecified thoracic vertebra, initial encounter for closed fracture; M54.16 Radiculopathy, lumbar region
CPT/HCPCS: 99204

== ENCOUNTER → 2024-11-08 10:07 | Outpatient (BNVA) | payer MEDICARE, SELFPAY | PROVIDERS: PCP Internal Medicine; Referring Provider Physician Assistant; Visit Provider Internal Medicine | DX: M43.16 Spondylolisthesis, lumbar region (principal); M75.81 Other shoulder lesions, right shoulder; M54.16 Radiculopathy, lumbar region; S22.000A Wedge compression fracture of unspecified thoracic vertebra, initial encounter for closed fracture | CPT/HCPCS: 99202 ==

== ENCOUNTER 2024-11-25 07:37 | Outpatient (REF) | payer MEDICARE, SELFPAY ==
--- NOTE | ~2024-11-25 | FL_ITS ---
EXAMINATION: FL GUIDANCE ONLY HISTORY: M54.16 - Radiculopathy, lumbar region COMPARISON: None available. TECHNIQUE: Fluoroscopy time: 0.4 minutes. Cumulative Dose: 7.07 mGy. DAP: 0.0411 mGym2 Images: 2. FINDINGS: Fluoroscopic spot films of the lumbar spine demonstrate a needle and contrast in the region of a right facet joint. FL/FL guidance in treatment room IMPRESSION: Fluoroscopy during procedure. Please see procedure report for additional information. Electronically signed by: Gary Milan MD 11/25/2024 12:41 PM ANUPAMA
--- OUTSIDE RECORDS SUMMARY | 2024-11-25 07:39 | XMS_ITS ---
Author Organization [facility] Address [address] [facility] [place] [address] Care Team Providers Care County Auditor Name Role Phone Ismael Davis MD Primary Care Provider Kaiser Cerna Unavailable [phone] Allergies Allergen (clinical drug ingredient) Drug/Non Drug [...] 024 Encounters Encounter Location Date Provider Diagnosis [facility] [place] [address] [place] [address] 05/03/2024 [facility] Riddle Tinea unguium B35.1 ; [...] * Vero CONNELLYDOB: [birth year] (83 yo F)Acc No.[id number]:05/03/2024 Progress Note Patient:?DarrellAguilaly Provider:?Kaiser Riddle DPM :1940???Age:83 Y???Sex:Female D ate:05/03/2024 Address:[address], [place] , [place] Pcp:Ismael Davis MD Subjective: * Chief Complaints: [...] Exercise. ?Marital status: . ?Occupation: retired- people [employer]. * Medications:?TakingAlendrona te Sodium 70 MG Tablet [...] surgical procedures to prevent recurrence.? * Procedure Codes:?16109 Avuls ion Plate, Modifiers: T1 * Preventive [...] DPM Date:? 024 Generated for Astrid mello/Faxing/eTransmitting on:?11/25/2024 07:39 AM EST History and Physical Notes * [...]
--- OUTSIDE RECORDS SUMMARY | 2024-11-25 07:40 | XMS_ITS | Patient Health Record ---
Author [facility] Address [address] [facility] [place] [address] Care Team Providers Care V Belt Curer Name Role Phone Ismael Davis MD Primary Care Provider Kaiser Cerna Unavailable [phone] Allergies Allergen (clinical drug ingredient) Drug/Non Drug [...] Status Risk Notes Problem Acquired hallux valgus (54622032) Hallux valgus (acquired), left foot (M20.12) Active confirmed Problem Acquired hallux valgus (40231998) Hallux valgus (acquired), right foot (M20.11) Active confirmed Problem Plantar fascial fibromatosis (72261271) 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 Problem Acquired hammer toe of right foot (780731089969450 5) Other hammer toe(s) (acquired), right foot (M20.41) Active confirmed Problem Acquired hammer toe of left foot (259297697057837 3) Other hammer toe(s) (acquired), left foot (M20.42) Active confirmed Vital Signs Blood pressure diastolic 70 mm Hg 05/03/2024 Height 4ft 11in in 05/03/2024 Blood pressure systolic 138 mm Hg 05/03/2024 Weight 160 lbs 05/03/2024 BMI 32.31 kg/m2 05/03/2024 Encounters Encounter Location Date Provider Diagnosis [facility] [place] [address] [place] [address] 12/04/2023 [facility] Riddle Tinea unguium B35.1 ; [...] nail L60.0 and Plantar fascial fibromatosis M72.[address] [facility] [address] 01/05/2024 [facility] Riddle Tinea unguium B35.1 ; [...] nail L60.0 and Plantar fascial fibromatosis M72.[address] [address] 05/03/2024 [facility] Riddle Tinea unguium B35.1 ; [...] nail L60.0 and Plantar fascial fibromatosis M72.[address] [address] 12/04/[address] [address] 08/03/2024 [facility] Riddle Assessments Encounter Date Diagnosis [...] Date [place] Advantage [facility] [address] [facility] [place] [address] [id number] Vero Ramírez Self - patient is the insured Medical (General) History Medical History History ICD Code Arthritis Back,Hip,and Knee pain Depression Headaches/Migraines Kidney disease Measles Mumps Chicken pox Surgical History Surgery Date(Month/Year) hysterectomy gall bladder Hospitalization History Reason Date(Month/Year) [place] [facility]- [place] [facility] [place]umat[place]23
--- OUTSIDE RECORDS SUMMARY | 2024-11-25 07:40 | XMS_ITS ---
Author Organization [facility] Address [address] [place] [address] Care Team Providers Care Cattle Shipper Name Role Phone Ismael Davis MD Primary Care Provider Kaiser Cerna [phone] REASON FOR VISIT Last PCP Visit: 04/26/24, Ingrown nail(s) Medications Medication SIG (Take, Route, Frequency, Duration) Notes Start Date End Date Status Voltaren 1 % as directed Externally Active Night Splint AFO - L1930 as directed Active Problems Problem Type SNOMED Code ICD Code Onset Dates Problem Status W/U Status Risk Notes Problem Plantar fascial fibromatosis (53359144) 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 Encounters Encounter Location Date Provider Diagnosis [facility] [address] [place] [address] 08/05/2024 Kaiser Riddle Tinea unguium B35.1 ; [...] * Vero CONNELLYDOB: [birth year] (84 yo F)Acc No.[id number]:08/05/2024 Progress Note Patient:?Vero CONNELLY Provider:?Kaiser Riddle DPM :1940???Age:83 Y???Sex:Female D ate:08/05/2024 Address: [address], [facility], [facility] Pcp:Ismael Davis MD Subjective: * Chief Complaints: [...] surgical procedures to prevent recurrence.? * Procedure Codes:?01170 Avuls ion Plate, Modifiers: T1 * Follow Up:?3 Months * Images: * The named appointment provid er may or may not be the originator of this progress note, and it is not deemed complete until electronically signed by the appointment provider. Sign off status: Pending * Provider:Alexander Riddle DPM Date:? 024 Generated for Astrid mello/Jason/Rhett on:?11/25/2024 07:39 AM EST History and Physical [...]
--- OUTSIDE RECORDS SUMMARY | 2024-11-25 07:40 | XMS_ITS ---
Author Organization [facility] Address [address] [place] [address] Care Team Providers Care Ping Pong Table Assembler Name Role Phone Ismael Davis MD Primary Care Provider [facility] Cerna [phone] REASON FOR VISIT cx 08/05 Encounters Encounter Location Date Provider Diagnosis [facility] [address] [place] [address] 08/03/2024 [facility] Plan Of Treatment No Information Progress Notes * Vero CONNELLYDOB: [birth year] (83 yo F)Acc No.[id number]:08/03/2024 Patient:?DarrellVero :1940???Age:83 Y???Sex:Female Address:[address], [place], [address] * true * Date:? Generated for Printi funmilayo/Jason/eTransmitting on:?11/25/2024 07:39 AM EST
== END 2024-11-25 07:38 | disposition home or self-care (01) ==
LOC: CF 07:37
PROVIDERS: Visit Provider Internal Medicine
DX: M54.16 Radiculopathy, lumbar region (principal)
CPT/HCPCS: 62323; J2003; J3301; Q9967

== ENCOUNTER 2024-11-25 11:17 | Outpatient (AMB) | payer MEDICARE, SELFPAY ==
[2024-11-25 11:26] VITALS: BP 144/71; PULSE 72; O2SAT 96; BMI 30.3
--- NOTE | 2024-11-25 11:26 | A.OFFVIS_ITS ---
Vital Signs 11/25/24 11:26 Height 5 ft Weight 155 lb BMI 30.3 BP 144/71 H Blood Pressure Location Rt brachial Position Sitting Pulse 72 Pulse Source Pulse Oximeter Pulse Oximetry (%) 96 Oxygen Delivery Method Room Air Intake Visit Reasons: Right L4-L5 interlaminar YAHIR Loom Fixer Helper Required: No Allergies naproxen [NAPROXEN] Allergy (Intermediate, Verified 11/25/24 11:27) BLISTERS IN MOUTH Sulfa (Sulfonamide Antibiotics) [SULFA (SULFONAMIDE ANTIBIOTICS)] Allergy (Intermediate, Verified 11/25/24 11:27) BLISTERS ON TONGUE Medication List - Last Reconciled 11/25/24 by Dyan Church, CONCRETE BUCKET HOOKER acetaminophen ER (Mapap Arthritis Pain) 1 tab PO Q8H PRN albuterol sulfate 90 mcg/actuation (ProAir HFA) 2 puffs inhalation Q6H PRN cefpodoxime 200 mg PO Q12H cholecalciferol (vitamin D3) (Vitamin D3) 25 mcg PO DAILY fexofenadine 180 mg PO DAILY fluticasone propionate 50 mcg/actuation (Allergy Relief (fluticasone)) 1 spray intranasal DAILY folic acid 1 mg PO DAILY hydrochlorothiazide 25 mg PO DAILY levothyroxine 25 mcg PO DAILY lidocaine 5% 1 patch topical DAILY magnesium oxide 400 mg PO DAILY metoprolol tartrate 12.5 mg (1/2 x 25 mg) PO BID omeprazole 20 mg PO DAILY@0630 polyvinyl alcohol 1.4% (Artificial Tears (polyvinyl alcohol)) 2 drps ophthalmic (eye) Q4H PRN potassium chloride ER 10 mEq PO DAILY sertraline 25 mg PO DAILY simvastatin 20 mg PO DAILY [TLSO [place] TLSO or other comparable orthotic ] tramadol 50 mg PO DAILY PRN HPI HPI Right L4-L5 interlaminar YAHIR: Details: Patient presents for scheduled procedure. Denies any recent cough, cold, infection, fever or other significant changes in medical history since last office visit. PFSH Medical History Dyspnea on exertion Bronchitis Hyperlipidemia Hypertension Polymyalgia rheumatica Surgical History Hx of cholecystectomy Hx of hysterectomy Family History Mother CHF (congestive heart failure) Social History Household Members: Spouse Housing: House Do you presently have visiting nurse or other home services: No Alcohol intake: current Alcohol intake frequency: holidays/special occasions only Patient Tobacco Use Status: Former Tobacco user Tobacco use type: Cigarette Cigarettes Per Day: 15 Years Smoked: 4 e-Cigarette/Vaping Use: Never Used Second Hand Smoke Exposure: No Substance Use Type: Marijuana Advance Directives Date on File: 11/24/23 service: No Current occupational status: retired Physical Exam Vital Signs: Last Vital Signs Pulse 72 11/25/24 11:26 BP 144/71 H 11/25/24 11:26 Pulse Ox 96 11/25/24 11:26 Oxygen Delivery Method Room Air 11/25/24 11:26 BMI result Body Mass Index 30.3 Office Procedures AMB Joint Injection/Aspiration Joint Injection/Aspiration Details: Interlaminar epidural steroid injection, L3/4, Right parasaggital After obtaining written consent, pre-procedure blood pressure and heart rate were stable and recorded in the nursing record. The patient was placed in the prone position. The lumbar area was widely prepped with chloraprep and draped in sterile fashion. Fluoroscopic guidance was used to identify the desired interlaminar space and for needle placement. The L3-4 space was chosen for access due to severe narrowing of the L4-5 interspace, making potential access difficult. Subcutaneous 0.5% lidocaine was used to anesthetize the skin overlying the target. A 20-gauge Browne needle was advanced to the epidural space using loss of resistance to contrast technique under fluoroscopic AP and contralateral oblique views. There was no evidence of heme or CSF and no paresthesias were elicited with needle placement. Confirmation of epidural needle placement was performed with 1cc of omnipaque 180. Next 3 ml 0.5% lidocaine mixed with 40 mg triamcinilone was administered epidurally with no pain elicited on injection. The needle tract tubing was then cleared with 1 ml of 0.5% lidocaine. The needle was removed, skin cleansed and a sterile bandage was applied. The patient tolerated the procedure well and no complications were encountered. Following the procedure the patient's vital signs were stable. The patient was discharged home in good condition with post-procedural instructions. Time Out: Immediately prior to the procedure, the following was verbally confirmed that there is a signed consent form and that the correct patient, planned procedure, site and side are consistent with documentation and that necessary equipment and/or blood products are available prior to the start of the case. Complications: none EBL: <2 cc Coding 30741 - Caudal/Lumbar Epidural/Interlaminar with fluoroscopy Procedure code (CPT) selection complete Assessment & Plan Assessment & Plan (1) Lumbar radicular pain: Code(s): M54.16 - Radiculopathy, lumbar region Category: Medical Plan Patient is status post right parasagittal interlaminar L3-4 with 40 mg of triamcinolone. Patient tolerated procedure well and was discharged home in stable condition with discharge instructions. All questions were answered. We will follow-up via telephone or in clinic to assess response to therapy. A follow-up appointment was made during today's visit. Orders: Orders FL guidance in treatment room Today M54.16 - Radiculopathy, lumbar region Coding Level of Care Code Procedure Only Diagnoses Lumbar radicular pain M54.16 CPT Codes Coding - Joint 11: 56835 - Caudal/Lumbar Epidural/Interlaminar with fluoroscopy ([id number])
--- OUTSIDE RECORDS SUMMARY | 2024-11-25 11:55 | XMS_ITS | Encounter Summary ---
Author Organization [facility] Address [address] [place] [address] Care Team Providers Care Grant Manager Name Role Phone Christal Celestin MD Primary Care Provider Africa Ibrahim MD Primary Care Provider Un available Jose Lopez MD Primary Care Provider Unavail able Javier Eller MD Primary Care Provider [phone] Encounter Details Date Type Department Care Team Description 04/03/2016 Business Doc Medical Records [address] [place] [id number] Abstract, Provider Social History Tobacco Use Types [...] on filedocumented in this encounter Care Teams Grant Manager Relationship Specialty Start Date End Date Christal Celestin MD PCP - General Internal Medicine 11/15/15 11/30/18 Africa Blankenship MD PCP - General Internal Medicine 12/01/18 9 Jose Lopez MD PCP - General Internal Medicine 01/19/19 04/11/20 Javier Eller MD [address] [place] [address] PCP - General Internal Medicine 04/12/20 documented as of this encounter
--- OUTSIDE RECORDS SUMMARY | 2024-11-25 11:55 | XMS_ITS | Encounter Summary ---
Author Organization [facility] Address [address] [place] [address] Care Team Providers Care Fire Equipment Repairer Inspector Name Role Phone Name, Rafael TAVERA Primary Care Provider Christal Piedra MD Primary Care Provider Africa Ibrahim MD Primary Care Provider Un available Jose Lopez MD Primary Care Provider Unavail able Javier Eller MD Primary Care Provider [phone] Encounter Details Date Type Department Care Team Description 09/02/2014 Release of Information Medical Records [address] [place] [address] Abstract, Provider Social History Tobacco Use Types [...] on filedocumented in this encounter Care Teams Fire Equipment Repairer Inspector Relationship Specialty Start Date End Date Name, MD Rafael PCP - General 12/13/09 11/14/15 Christal Celestin MD PCP - General Internal Medicine 11/15/15 11/30/18 Africa Blankenship MD PCP - General Internal Medicine 12/01/18 9 Jose Lopez MD PCP - General Internal Medicine 01/19/19 04/11/20 Javier Eller MD [address] [place] [address] PCP - General Internal Medicine 04/12/20 documented as of this encounter
--- OUTSIDE RECORDS SUMMARY | 2024-11-25 11:55 | XMS_ITS | Encounter Summary ---
Author Organization [facility] Address [address] [place] [address] Care Team Providers Care Truck Rental Manager Name Role Phone Javier Eller MD Primary Care Provider [phone] Encounter Details Date Type Department Care Team Description 12/20/2020 Old Medical Records Medical Records [address] [place] [address] Abstract, Provider Social History Tobacco Use Types Packs/Day Years Used Date Smoking Tobacco: Former Cigarettes 0.8 28 0 10/13/1956 - 10/13/1984 Smokeless Tobacco: Former Comments:quit in 1987 kali mckeon smoking at 19 Alcohol Use Standard Drinks/Week Comments Yes 0 (1 standard drink = 0.6 oz pur e alcohol) rare Sex Assigned at Date Recorded Not on file documented as of this encounter Plan of Treatment Not on file documented as of this encounter Visit Diagnoses Not on filedocumented in this encounter Care Teams Truck Rental Manager Relationship Specialty Start Date End Date Javier Eller MD [address] [place] [address] PCP - General Internal Medicine 04/12/20 documented as of this encounter
--- OUTSIDE RECORDS SUMMARY | 2024-11-25 11:55 | XMS_ITS | Encounter Summary ---
Author Organization [facility] Address [address] [place] [address] Care Team Providers Care New Car Driver Name Role Phone Name, Rafael TAVERA Primary Care Provider Christal Piedra MD Primary Care Provider Africa Ibrahim MD Primary Care Provider Un available Jose Lopez MD Primary Care Provider Unavail able Javier Eller MD Primary Care Provider [phone] Encounter Details Date Type Department Care Team Description 10/25/2010 Eye Uptwister Tender Report Medical Records [address] [place] [id number] Javi Bronson Social History Tobacco Use Types [...] on filedocumented in this encounter Care Teams New Car Driver Relationship Specialty Start Date End Date Name, MD Rafael PCP - General 12/13/09 11/14/15 Christal Celestin MD PCP - General Internal Medicine 11/15/15 11/30/18 Africa Blankenship MD PCP - General Internal Medicine 12/01/18 9 Jose Lopez MD PCP - General Internal Medicine 01/19/19 04/11/20 Javier Eller MD [address] [place] [address] [id number] PCP - General Internal Medicine 04/12/20 documented as of this encounter
--- OUTSIDE RECORDS SUMMARY | 2024-11-25 11:55 | XMS_ITS | Encounter Summary ---
Author Organization [facility] Address [address] [place] [address] Care Team Providers Care Revenue Cycle Consultant Name Role Phone Jose oLpez MD Primary Care Provider [facility] Javier Patel MD Primary Care Provider [phone] Reason for Visit * Reason Onset Date Comments refill request 09/28/2019 Encounter Details Date Type Department Care Team Description 09/28/2019 Refill Adult Medicine [address] [id number] Jose Lopez MD refill request Social History [...] N/A Patients current insurance carrier is: Payor: [facility] FFS / Plan: [facility] MEDICARE PREMIUM $10 [place] / Product Type: MEDICARE [id number] documented in this encounter Plan of Treatment Not on file documented as of this encounter Visit Diagnoses Not on filedocumented in this encounter Care Teams Revenue Cycle Consultant Relationship Specialty Start Date End Date Jose Lopez MD PCP - General Internal Medicine 01/19/19 04/11/20 Javier Eller MD [address] [place] [id number] PCP - General Internal Medicine 04/12/20 documented as of this encounter
--- OUTSIDE RECORDS SUMMARY | 2024-11-25 11:55 | XMS_ITS | Encounter Summary ---
Author Organization [facility] Address [address] [place] [address] Care Team Providers Care Engineering Model Maker Name Role Phone Name, Rafael TAVERA Primary Care Provider Christal Piedra MD Primary Care Provider Africa Ibrahim MD Primary Care Provider Un available Jose Lopez MD Primary Care Provider Unavail Javier Patel MD Primary Care Provider Reason for Visit * Reason Onset Date Comments Wrist Pain 05/12/2014 fell, hurt right wrist Encounter Details Date Type Department Care Team Description 05/12/2014 Telephone Adult [address] [phone] Name, MD Rafael Wrist Pain (fell, hurt [...] fell on Friday05/09/14 PCP: Rafael Name Payor: [facility] FFS / Plan: [facility] MEDICARE PLUS $15 [place] / Product Type: MEDICARE [id number] documented in this encounter Plan of Treatment Not on file documented as of this encounter Visit Diagnoses Not on filedocumented in this encounter Care Teams Engineering Model Maker Relationship Specialty Start Date End Date Name, MD Rafael PCP - General 12/13/09 11/14/15 Christal Celestin MD PCP - General Internal Medicine 11/15/15 11/30/18 Africa Blankenship MD PCP - General Internal Medicine 12/01/18 9 Jose Lopez MD PCP - General Internal Medicine 01/19/19 04/11/20 Javier Eller MD [address] [place] [address] PCP - General Internal Medicine 04/12/20 documented as of this encounter
--- OUTSIDE RECORDS SUMMARY | 2024-11-25 11:55 | XMS_ITS | Encounter Summary ---
Author Organization [facility] Address [address] [place] [address] Care Team Providers Care Thread Milling Machine Set Up Operator Name Role Phone Jose Lopez MD Primary Care Provider Javier Jurado MD Primary Care Provider [phone] Encounter Details Date Type Department Care Team Description 01/19/2019 Telephone Adult Medicine - [place] [address] [place] [address] Bertha Lombardi MD [address] [place] [address] Social History Tobacco Use Types Packs/Day Years [...] encounter Miscellaneous Notes * Telephone Encounter - Jose Lopez MD - 01/20/2019 5:33 PM EDT Thank you for your assistance. * Telephone Encounter - Jose Lopez MD - 01/20/2019 5:33 PM EDT Have spoken to the patient, she will take her potassium supplementation and come in in 2 days for repeat levels. * Telephone Encounter - Bertha Lombardi MD - 01/19/2019 8:39 PM EDT Called patient discussed about low potasium will send in a script for potassium and recheck levels in a couple of days orders placed documented in this encounter Plan of Treatment Not on file documented as of this encounter Results * (ABNORMAL) BASIC METABOLIC PANEL (10/21/2019 10:24 AM EST) Blood Urea Nitrogen 20 5 - 25 mg/dL 10/21/2019 2:52 PM EST [facility] CREAT 0.84 0.5 - 1.1 mg/dL 10/21/2019 2:52 PM EST [facility] GLOMERULAR FILTRATION RATE > 60 10/21/2019 2:52 PM EST [facility] Comment: If patient is -[place], multiply result by 1.21 Chronic Kidney Disease: < 60 ml/min/1.73 square meters Kidney Failure: < 15 ml/min/1.73 square meters NA 138 135 - 145 mEq/L 10/21/2019 2:52 PM EST [facility] K 3.5 3.5 - 5.5 mmol/L 10/21/2019 2:52 PM EST [facility] CL 96 96 - 110 mmol/L 10/21/2019 2:52 PM EST [facility] CARBON DIOXIDE (CO2) 33(H) 21 - 32 mmol/L 10/21/2019 2:52 PM EST [facility] ANION GAP 9 3 - 11 10/21/2019 2:52 PM EST [facility] CALCIUM 10.0 8.5 - 10.5 mg/dL 10/21/2019 2:52 PM EST [facility] GLUCOSE 94 70 - 100 mg/dL 10/21/2019 2:54 PM EST [facility] Comment:Reference range appl icable to fasting specimens only 10/21/2019 10:2 4 AM EST 10/21/2019 10:24 AM EST Bertha Lombardi MD LAB [facility] * (ABNORMAL) BASIC METABOLIC PANEL (01/23/2019 9:18 AM EDT) GLUCOSE 86 70 - 100 mg/dL 01/23/2019 3:08 PM EDT [facility] Comment:Reference range appl icable to fasting specimens only Blood Urea Nitrogen 17 5 - 25 mg/dL 01/23/2019 3:08 PM EDT [facility] CREAT 0.80 0.5 - 1.1 mg/dL 01/23/2019 3:08 PM EDT [facility] GLOMERULAR FILTRATION RATE > 60 01/23/2019 3:08 PM EDT [facility] Comment: If patient is -[place], multiply result by 1.21 Chronic Kidney Disease: < 60 ml/min/1.73 square meters Kidney Failure: < 15 ml/min/1.73 square meters NA 138 133 - 145 mmol/L 01/23/2019 3:08 PM EDT [facility] K 4.0 3.5 - 5.5 mmol/L 01/23/2019 3:08 PM EDT [facility] CL 99 96 - 110 mmol/L 01/23/2019 3:08 PM EDT [facility] CARBON DIOXIDE (CO2) 33(H) 21 - 32 mmol/L 01/23/2019 3:08 PM EDT [facility] ANION GAP 6 3 - 11 01/23/2019 3:08 PM EDT [facility] CALCIUM 9.2 8.5 - 10.5 mg/dL 01/23/2019 3:08 PM EDT [facility] 01/23/2019 9:18 AM EDT 01/23/2019 9:18 AM EDT Jose Lopez MD LAB [facility] documented in this encounter Visit Diagnoses Diagnosis Hypokalemia due to loss of potassium- Primary documented in this encounter Care Teams Thread Milling Machine Set Up Operator Relationship Specialty Start Date End Date Jose Lopez MD PCP - General Internal Medicine 01/19/19 04/11/20 Javier Eller MD [address] [place] [address] PCP - General Internal Medicine 04/12/20 documented as of this encounter
--- OUTSIDE RECORDS SUMMARY | 2024-11-25 11:55 | XMS_ITS | Encounter Summary ---
Author Organization [facility] Address [address] [place] [address] Care Team Providers Care Mail Inserter Name Role Phone Christal Celestin MD Primary Care Provider Africa Ibrahim MD Primary Care Provider Un available Jose Lopez MD Primary Care Provider Unavail able Javier Eller MD Primary Care Provider [phone] Encounter Details Date Type Department Care Team Description 06/03/2016 Clamp Jig Assembler Report Medical Records [address] [place] [address] Raysa Brunson NP Social History Tobacco Use [...] on filedocumented in this encounter Care Teams Mail Inserter Relationship Specialty Start Date End Date Christal Celestin MD PCP - General Internal Medicine 11/15/15 11/30/18 Africa Blankenship MD PCP - General Internal Medicine 12/01/18 9 Jose Lopez MD PCP - General Internal Medicine 01/19/19 04/11/20 Javier Eller MD [address] [place] [address] PCP - General Internal Medicine 04/12/20 documented as of this encounter
--- OUTSIDE RECORDS SUMMARY | 2024-11-25 11:55 | XMS_ITS | Encounter Summary ---
Author Organization [facility] Address [address] [place] [address] Care Team Providers Care Gelatin Dynamite Packing Operator Name Role Phone Jose Lopez MD Primary Care Provider Unavail able Javier Eller MD Primary Care Provider Encounter Details Date Type Department Care Team Description 01/19/2019 Telephone Adult Medicine - [place] [address] [place] [address] Bertha Lombardi MD [address] [place] [address] Social History Tobacco Use Types Packs/Day Years [...] on filedocumented in this encounter Care Teams Gelatin Dynamite Packing Operator Relationship Specialty Start Date End Date Jose Lopez MD PCP - General Internal Medicine 01/19/19 04/11/20 Javier Eller MD [address] [place] [address] [id number] PCP - General Internal Medicine 04/12/20 documented as of this encounter
--- OUTSIDE RECORDS SUMMARY | 2024-11-25 11:55 | XMS_ITS | Encounter Summary ---
Author Organization [facility] Address [address] [place] [address] Care Team Providers Care Remote Sensing Surveyor Name Role Phone Jose Lopez MD Primary Care Provider Unavail able Javier Eller MD Primary Care Provider [phone] Encounter Details Date Type Department Care Team Description 02/14/2020 Telephone Adult Medicine [address] [address] Jose Lopez MD Social History [...] on filedocumented in this encounter Care Teams Remote Sensing Surveyor Relationship Specialty Start Date End Date Jose Lopez MD PCP - General Internal Medicine 01/19/19 04/11/20 Javier Eller MD [address] [place] [address] PCP - General Internal Medicine 04/12/20 documented as of this encounter
--- OUTSIDE RECORDS SUMMARY | 2024-11-25 11:55 | XMS_ITS | Encounter Summary ---
Author Organization [facility] Address [address] [place] [address] Care Team Providers Care Underground Heavy Equipment Operator Name Role Phone Name, Rafael TAVERA Primary Care Provider Christal Piedra MD Primary Care Provider Africa Ibrahim MD Primary Care Provider Un available Jose Lopez MD Primary Care Provider Unavail able Javier Eller MD Primary Care Provider [phone] Encounter Details Date Type Department Care Team Description 05/01/2012 Hospital Medical Records [address] [place] [address] Florian Reina MD, MD Social History Tobacco [...] on filedocumented in this encounter Care Teams Underground Heavy Equipment Operator Relationship Specialty Start Date End Date Name, MD Rafael PCP - General 12/13/09 11/14/15 Christal Celestin MD PCP - General Internal Medicine 11/15/15 11/30/18 Africa Blankenship MD PCP - General Internal Medicine 12/01/18 9 Jose Lopez MD PCP - General Internal Medicine 01/19/19 04/11/20 Javier Eller MD [address] [place] [address] PCP - General Internal Medicine 04/12/20 documented as of this encounter
--- OUTSIDE RECORDS SUMMARY | 2024-11-25 11:55 | XMS_ITS | Encounter Summary ---
Author Organization [facility] Address [address] [place] [address] Care Team Providers Care Brick Machine Operator Name Role Phone Name, Rafael TAVERA Primary Care Provider Christal Piedra MD Primary Care Provider Africa Ibrahim MD Primary Care Provider Un available Jose Lopez MD Primary Care Provider Unavail able Javier Eller MD Primary Care Provider [phone] Reason for Visit * Reason Onset Date Comments Edema 01/11/2015 Encounter Details Date Type Department Care Team Description 01/11/2015 Telephone Adult Medicine [address] [phone] Name, MD Rafael Edema Social History Tobacco Use Types Packs/Day Years [...] Telephone Encounter - Umm Alfaro R.N. - 01/11/2015 8:51 AM EDT Pt has swelling in both legs, she noticed this increasing on Friday. Pt has no chest pain or SOB, she is able to lie flat at night and has no KUHN, she has not had any N/V/D , swelling is less in the am and worse at the end of the day, she has no redness or pain in hercalves, has swelling in both feet from the dorsum to the ankles , nl CSM Pt to see spencer de la cruz at 9:45 Past Medical History Diagnosis Date ??? DEPRESSION 04/26/2006 ??? 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 VENTRAL ABDOMINAL WALL HERNIA 04/26/2006 ??? 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 Sciatica 04/30/2007 ??? Polymyalgia 02/18/2008 Onset fall 2006 - prednisone through 09/19 ??? Inflammatory arthritis 09/28/2010 Outpatient Prescriptions Prior to Visit Medication Sig Dispense Refill ??? celecoxib (CELEBREX) 200 MG capsule Take 1 Cap by mouth daily. 30 Cap 5 ??? simvastatin (ZOCOR) 20 MG tablet Take 1 Tab by mouth at bedtime. 90 Tab 1 ??? fluticasone (FLONASE) 50 MCG/ACT nasal spray 1 [place] by Nasal route daily. 1 Bottle 5 No facility-administered medications prior to visit. * Telephone Encounter - Jasmine Malik - 01/11/2015 8:46 AM EDT Symptoms patient is presenting: ankles retaining fluid, cannot wear regular shoes How long has patient had these symptoms?: since Friday PCP: Rafael Name Payor: [facility] / Plan: [facility] MEDICARE PLUS $15 [place] / Product Type: MEDICARE [id number] documented in this encounter Plan of Treatment Not on file documented as of this encounter Visit Diagnoses Not on filedocumented in this encounter Care Teams Brick Machine Operator Relationship Specialty Start Date End Date Name, MD Rafael PCP - General 12/13/09 11/14/15 Christal Celestin MD PCP - General Internal Medicine 11/15/15 11/30/18 Africa Blankenship MD PCP - General Internal Medicine 12/01/18 9 Jose Lopez MD PCP - General Internal Medicine 01/19/19 04/11/20 Javier Eller MD [address] [place] [address] PCP - General Internal Medicine 04/12/20 documented as of this encounter
--- OUTSIDE RECORDS SUMMARY | 2024-11-25 11:55 | XMS_ITS | Encounter Summary ---
Author Organization [facility] Address [address] [place] [address] Care Team Providers Care Build And Deployment Engineer Name Role Phone Name, Rafael TAVERA Primary Care Provider Christal Piedra MD Primary Care Provider Africa Ibrahim MD Primary Care Provider Un available Jose Lopez MD Primary Care Provider Unavail Javier Patel MD Primary Care Provider [phone] Reason for Visit * Reason Onset Date Comments radiology 04/23/2013 mri testing. Encounter Details Date Type Department Care Team Description 04/23/2013 Telephone Rheumatology - [address] [id number] Randolph Layne MD radiology (mri testing.) Social [...] - 1.5 mg/dL 04/26/2013 12:13 PM EDT [facility] GFR > 60 >60 04/26/2013 12:13 PM EDT [facility] Comment: If patient is -Montenegrin, multiply result by 1.21 Chronic Kidney Disease: < 60 ml/min/1.73 square meters Kidney Failure: < 15 ml/min/1.73 square meters 04/26/2013 7:55 AM EDT 04/26/2013 7:55 AM EDT Randolph Layne MD LAB [address] * BLOOD UREA NITROGEN (BUN) (04/26/2013 7:55 AM EDT) BUN 23 5 - 25 mg/dL 04/26/2013 12:09 PM EDT [facility] 04/26/2013 7:55 AM EDT 04/26/2013 7:55 AM EDT Randolph Layne MD LAB [address] documented in this encounter Visit Diagnoses Diagnosis Encounter for long-term (current) use of other medications- Primary documented in this encounter Care Teams Build And Deployment Engineer Relationship Specialty Start Date End Date Name, MD Rafael PCP - General 12/13/09 11/14/15 Christal Celestin MD PCP - General Internal Medicine 11/15/15 11/30/18 Africa Blankenship MD PCP - General Internal Medicine 12/01/18 9 Jose Lopez MD PCP - General Internal Medicine 01/19/19 04/11/20 Javier Eller MD [address] [place] [id number] PCP - General Internal Medicine 04/12/20 documented as of this encounter
--- OUTSIDE RECORDS SUMMARY | 2024-11-25 11:55 | XMS_ITS | Encounter Summary ---
Author Organization [facility] Address [address] [place] [address] Care Team Providers Care Wheel Press Clerk Name Role Phone Name, Rafael TAVERA Primary Care Provider Christal Piedra MD Primary Care Provider Africa Ibrahim MD Primary Care Provider Un available Jose Lopez MD Primary Care Provider Unavail able Javier Eller MD Primary Care Provider [phone] Encounter Details Date Type Department Care Team Description 02/21/2012 Jewel Bearing Grinder Report Medical Records [address] [place] [address] Florian Reina MD, MD Social History Tobacco [...] on filedocumented in this encounter Care Teams Wheel Press Clerk Relationship Specialty Start Date End Date Name, MD Rafael PCP - General 12/13/09 11/14/15 Christal Celestin MD PCP - General Internal Medicine 11/15/15 11/30/18 Africa Blankenship MD PCP - General Internal Medicine 12/01/18 9 Jose Lopez MD PCP - General Internal Medicine 01/19/19 04/11/20 Javier Eller MD [address] [place] [address] [id number] PCP - General Internal Medicine 04/12/20 documented as of this encounter
--- OUTSIDE RECORDS SUMMARY | 2024-11-25 11:55 | XMS_ITS | Encounter Summary ---
Author Organization [facility] Address [address] [place] [address] Care Team Providers Care Mirror Installer Name Role Phone Name, Rafael TAVERA Primary Care Provider Christal Piedra MD Primary Care Provider Africa Ibrahim MD Primary Care Provider Un available Jose Lopez MD Primary Care Provider Unavail able Javier Eller MD Primary Care Provider Encounter Details Date Type Department Care Team Description 03/18/2012 Release of Information Medical Records [address] [place] [id number] Abstract, Provider Social History Tobacco Use Types [...] on filedocumented in this encounter Care Teams Mirror Installer Relationship Specialty Start Date End Date Name, MD Rafael PCP - General 12/13/09 11/14/15 Christal Celestin MD PCP - General Internal Medicine 11/15/15 11/30/18 Africa Blankenship MD PCP - General Internal Medicine 12/01/18 9 Jose Lopez MD PCP - General Internal Medicine 01/19/19 04/11/20 Javier Eller MD [address] [place] [address] [id number] PCP - General Internal Medicine 04/12/20 documented as of this encounter
--- OUTSIDE RECORDS SUMMARY | 2024-11-25 11:55 | XMS_ITS | Encounter Summary ---
Author Organization [facility] Address [address] [place] [address] Care Team Providers Care Assembler Metal Building Name Role Phone Name, Rafael TAVERA Primary Care Provider Christal Piedra MD Primary Care Provider Africa Ibrahim MD Primary Care Provider Un available Jose Lopez MD Primary Care Provider Unavail able Javier Eller MD Primary Care Provider [phone] Encounter Details Date Type Department Care Team Description 05/17/2014 Trestle Mainternance Laborer Report Medical Records [address] [place] [address] Hyacinth Momin MD Social History Tobacco Use [...] on filedocumented in this encounter Care Teams Assembler Metal Building Relationship Specialty Start Date End Date Name, MD Rafael PCP - General 12/13/09 11/14/15 Christal Celestin MD PCP - General Internal Medicine 11/15/15 11/30/18 Africa Blankenship MD PCP - General Internal Medicine 12/01/18 9 Jose Lopez MD PCP - General Internal Medicine 01/19/19 04/11/20 Javier Eller MD [address] [place] [address] [id number] PCP - General Internal Medicine 04/12/20 documented as of this encounter
--- OUTSIDE RECORDS SUMMARY | 2024-11-25 11:55 | XMS_ITS | Encounter Summary ---
Author Organization [facility] Address [address] [place] [address] Care Team Providers Care Job Coach/Job Developer Name Role Phone Christal Celestin MD Primary Care Provider Africa Ibrahim MD Primary Care Provider Un available Jose Lopez MD Primary Care Provider Javier Jurado MD Primary Care Provider [phone] Reason for Referral * EXTERNAL (Urgent) - Authorized/Booked Specialty Diagnoses / Procedures Referred By Mami stephenson Referred To Contact Physical Therapy Diagnoses Primary localized osteoarthrosis of lower leg, unspecified laterality Unsteady gait Procedures REFERRAL TO PHYSICAL THERAPY Randolph Layne MD [address] [place] [address] External Phys Thrpy Referral ID Status Reason Start Date Expiration Date V isits Requested Visits Authorized SEE NOTE Authorized/B ooked 06/26/2018 09/25/2018 1 1 Reason for Visit * Reason Onset Date Comments Electric Freight Car Operator Feedback 06/26/2018 Re[facility] PT Encounter Details Date Type Department Care Team Description 06/26/2018 Telephone Rheumatology - [address] [address] Randolph Layne MD Electric Freight Car Operator Feedback ([facility] PT) Social History Tobacco Use Types Packs/Day Years Used Date Smoking Tobacco: Former Cigarettes 0.8 28 Smokeless Tobacco: Former Comments:quit in 1987 starte d smoking at 19 Alcohol Use Standard Drinks/Week Comments Yes 0 (1 standard drink = 0.6 oz pur e alcohol) rare Sex Assigned at Date Recorded Not on file documented as of this encounter Miscellaneous Notes * Telephone Encounter - Kalani Gordon 06/26/2018 10:05 AM EDT Please review this patients new referral request. The referral has been pended. Please complete thefollowing: If approved> sign order If denied>please give instructions and route to your practice nursing pool. Practice nurse should inform referrals and the patient if denied. documented in this encounter Plan of Treatment Not on file documented as of this encounter Visit Diagnoses Diagnosis Primary localized osteoarthrosis of lower leg, unspecified laterality- Primary Unsteady gait Abnormality of gait documented in this encounter Care Teams Job Coach/Job Developer Relationship Specialty Start Date End Date Christal Celestin MD PCP - General Internal Medicine 11/15/15 11/30/18 Africa Blankenship MD PCP - General Internal Medicine 12/01/18 9 Jose Lopez MD PCP - General Internal Medicine 01/19/19 04/11/20 Javier Eller MD [address] [place] [id number] PCP - General Internal Medicine 04/12/20 documented as of this encounter
--- OUTSIDE RECORDS SUMMARY | 2024-11-25 11:55 | XMS_ITS | Encounter Summary ---
Author Organization [facility] Address [address] [place] [address] Care Team Providers Care Blending Line Attendant Name Role Phone Name, Rafael TAVERA Primary Care Provider Christal Piedra MD Primary Care Provider Africa Ibrahim MD Primary Care Provider Un available Jose Lopez MD Primary Care Provider Unavail able Javier Eller MD Primary Care Provider [phone] Encounter Details Date Type Department Care Team Description 09/06/2014 Shipfitter Report Medical Records [address] [place] [address] Gael Martinez MD Social History Tobacco Use [...] on filedocumented in this encounter Care Teams Blending Line Attendant Relationship Specialty Start Date End Date Name, MD Rafael PCP - General 12/13/09 11/14/15 Christal Celestin MD PCP - General Internal Medicine 11/15/15 11/30/18 Africa Blankenship MD PCP - General Internal Medicine 12/01/18 9 Jose Lopez MD PCP - General Internal Medicine 01/19/19 04/11/20 Javier Eller MD [address] [place] [address] [id number] PCP - General Internal Medicine 04/12/20 documented as of this encounter
--- OUTSIDE RECORDS SUMMARY | 2024-11-25 11:55 | XMS_ITS | Encounter Summary ---
Author Organization [facility] Address [address] [place] [address] Care Team Providers Care Softball Umpire Name Role Phone Christal Celestin MD Primary Care Provider Africa Ibrahim MD Primary Care Provider Un available Jose Lopez MD Primary Care Provider Unavail able Javier Eller MD Primary Care Provider [phone] Encounter Details Date Type Department Care Team Description 08/29/2017 Orders Only Rheumatology - [address] [phone] Randolph Layne MD Social History Tobacco Use Types Packs/Day Years Used Date Smoking Tobacco: Former Cigarettes 0.8 28 Smokeless Tobacco: Former Comments:quit in 1987 start[place] d smoking at 19 Alcohol Use Standard Drinks/Week Comments Yes 0 (1 standard drink = 0.6 oz pur e alcohol) rare Sex Assigned at Date Recorded Not on file documented as of this encounter Plan of Treatment Not on file documented as of this encounter Visit Diagnoses Not on filedocumented in this encounter Care Teams Softball Umpire Relationship Specialty Start Date End Date Christal Celestin MD PCP - General Internal Medicine 11/15/15 11/30/18 Africa Blankenship MD PCP - General Internal Medicine 12/01/18 9 Jose Lopez MD PCP - General Internal Medicine 01/19/19 04/11/20 Javier Eller MD [address] [place] [id number] PCP - General Internal Medicine 04/12/20 documented as of this encounter
== END 2024-11-25 12:08 | disposition home or self-care (01) ==
LOC: HO.PMCPRC 11:17
PROVIDERS: PCP Internal Medicine; Visit Provider Internal Medicine
DX: M54.16 Radiculopathy, lumbar region (principal)
CPT/HCPCS: 62323

== ENCOUNTER 2024-12-24 11:45 | Outpatient (AMB) | payer MEDICARE, SELFPAY ==
--- NOTE | 2024-12-24 11:47 | A.OFFVIS_ITS ---
Vital Signs 12/24/24 11:49 Height 5 ft Weight 155 lb BMI 30.3 BP 163/72 H Blood Pressure Location Lt brachial Position Sitting Respiration 16 Pulse 66 Pulse Source Pulse Oximeter Pulse Oximetry (%) 97 Oxygen Delivery Method Room Air Intake Visit Reasons: s/p Right L4-L5 interlaminar YAHIR Gun Barrel Finisher Required: No Allergies naproxen [NAPROXEN] Allergy (Intermediate, Verified 12/24/24 11:50) BLISTERS IN MOUTH Sulfa (Sulfonamide Antibiotics) [SULFA (SULFONAMIDE ANTIBIOTICS)] Allergy (Intermediate, Verified 12/24/24 11:50) BLISTERS ON TONGUE Medication List - Last Reconciled 12/24/24 by Lisa Hunt LPN acetaminophen ER (Mapap Arthritis Pain) 1 tab PO Q8H PRN albuterol sulfate 90 mcg/actuation (ProAir HFA) 2 puffs inhalation Q6H PRN cefpodoxime 200 mg PO Q12H cholecalciferol (vitamin D3) (Vitamin D3) 25 mcg PO DAILY fexofenadine 180 mg PO DAILY fluticasone propionate 50 mcg/actuation (Allergy Relief (fluticasone)) 1 spray intranasal DAILY folic acid 1 mg PO DAILY hydrochlorothiazide 25 mg PO DAILY levothyroxine 25 mcg PO DAILY lidocaine 5% 1 patch topical DAILY magnesium oxide 400 mg PO DAILY metoprolol tartrate 12.5 mg (1/2 x 25 mg) PO BID omeprazole 20 mg PO DAILY@0630 polyvinyl alcohol 1.4% (Artificial Tears (polyvinyl alcohol)) 2 drps ophthalmic (eye) Q4H PRN potassium chloride ER 10 mEq PO DAILY sertraline 25 mg PO DAILY simvastatin 20 mg PO DAILY [TLSO [place] TLSO or other comparable orthotic ] tramadol 50 mg PO DAILY PRN HPI HPI s/p Right L4-L5 interlaminar YAHIR: Details: History of Present Illness The patient is an 84-year-old female presenting with exacerbation of right shoulder pain following a fall. Prior to the fall, she experienced significant relief from back pain due to a recent right L4-5 interlaminar epidural steroid injection. The fall aggravated her shoulder pain significantly. The incident involved direct trauma to her shoulder, which has been severe enough to disturb her sleep patterns, particularly when lying on the affected side. The patient did not seek an X-ray evaluation post-fall to assess potential injuries. Her concern is compounded by a long-standing balance issue, which she attributes to a possible vestibular disorder like vertigo, affecting her steadiness. Her history of compression fractures is acknowledged but currently not symptomatic. The patient mentions tramadol use, half a tablet twice daily, which she found helpful for pain management. However, she is currently out of medication, struggling without a consistent primary care physician to oversee her prescriptions. Pain Description - Onset following a fall - Severe pain in the right shoulder - Disturbed sleep due to inability to lie on the right side - Fall involved impact on shoulder, head, and back - Severe intensity really painful - Requires additional imaging (X-ray discussed) - Tramadol usage was half a pill twice daily effectively managed intermittent pain Physical Exam Results - X-ray of the right shoulder ordered after the fall Pain Management - Affect: Patient distressed by shoulder pain, hindering comfort and sleep, especially nocturnal rest. - Analgesia: Tramadol, half a pill twice daily, was effective; now seeking refill due to lack of a primary care provider. - Adverse Effects: No adverse effects noted from tramadol usage. - Activities of Daily Living: Pain impacts sleep and carryover effects on daily functional activities due to shoulder pain. - Aberrant Drug Related Behaviors: None reported; patient adheres to prescribed regimen but faces access issues due to provider change. [facility] Medical History Dyspnea on exertion Bronchitis Hyperlipidemia Hypertension Polymyalgia rheumatica Surgical History Hx of cholecystectomy Hx of hysterectomy Family History Mother CHF (congestive heart failure) Social History Household Members: Spouse Housing: House Do you presently have visiting nurse or other home services: No Alcohol intake: current Alcohol intake frequency: holidays/special occasions only Patient Tobacco Use Status: Former Tobacco user Tobacco use type: Cigarette Cigarettes Per Day: 15 Years Smoked: 4 e-Cigarette/Vaping Use: Never Used Second Hand Smoke Exposure: No Substance Use Type: Marijuana Advance Directives Date on File: 11/24/23 service: No Current occupational status: retired Physical Exam Vital Signs: Last Vital Signs Pulse 66 12/24/24 11:49 Resp 16 12/24/24 11:49 BP 163/72 H 12/24/24 11:49 Pulse Ox 97 12/24/24 11:49 Oxygen Delivery Method Room Air 12/24/24 11:49 BMI result Body Mass Index 30.3 Assessment & Plan Assessment & Plan (1) Fall: Code(s): W19.XXXA - Unspecified fall, initial encounter Category: Medical (2) Lumbar radicular pain: Code(s): M54.16 - Radiculopathy, lumbar region Category: Medical (3) Impingement of right shoulder: Code(s): M25.811 - Other specified joint disorders, right shoulder Category: Medical Plan Plan I have arranged for a right shoulder X-ray due post-fall to assess for injury. If necessary, we can revisit the need for another interlaminar steroid injection based on her back symptoms. I provided a one-time tramadol prescription and instructed the patient to identify and establish continuity of care with a new primary care provider. Her balance issues remain of concern, potentially linked to suspected vertigo, to be monitored over time. Patient was informed and verbally consented to the use of an ambient scribe for clinic note documentation during this visit. Discussion Notes I discussed with the patient the need for imaging of her shoulder following the recent injury due to a fall. We agreed to proceed with an X-ray and use the findings for further management decisions. We acknowledged her significant response to the epidural steroid injection concerning her back, preferring to defer repeat intervention unless symptoms recur. The patient's request for a tramadol refill was addressed by providing a temporary supply, clarifying our current limitations in controlled substance contracts, and emphasizing the importance of securing long-term primary care. Balance issues potentially indicating vertigo were noted without immediate action but require monitoring. I instructed on anticipated follow-ups for additional injections if necessary. Patient Instructions - Proceed with the right shoulder X-ray as discussed. - Follow-up with results to decide on further management. - Secure a new primary care provider within a month for medication prescriptions. - Use prescribed tramadol as directed for pain management. - Report any new or worsening symptoms promptly. - Consider monitoring balance issues and report significant changes. Orders: Orders XR shoulder RT min 2V 12/24/24 W19.XXXA - Unspecified fall, initial encounter Medications: New tramadol 25 mg (1/2 x 50 mg) PO BID 30 tabs 0RF Coding Level of Care Code Est Pt Level 4 (54811) Diagnoses Fall W19.XXXA Lumbar radicular pain M54.16 Impingement of right shoulder M25.811
[2024-12-24 11:49] VITALS: BP 163/72; PULSE 66; RESP 16; O2SAT 97; BMI 30.3
--- OUTSIDE RECORDS SUMMARY | 2024-12-24 13:35 | XMS_ITS | Encounter Summary ---
Author Organization [facility] Address [address] [place] [address] Care Team Providers Care Tugboat Mate Name Role Phone Jose Lopez MD Primary Care Provider Unavail able Javier Eller MD Primary Care Provider [phone] Encounter Details Date Type Department Care Team Description 01/19/2019 Telephone Adult Medicine - [place] [address] [place] [address] Bertha Lombardi MD [address] [place] [address] Social History Tobacco Use Types Packs/Day Years [...] on filedocumented in this encounter Care Teams Tugboat Mate Relationship Specialty Start Date End Date Jose Lopez MD PCP - General Internal Medicine 01/19/19 04/11/20 Javier Eller MD [address] [place] [address] [id number] PCP - General Internal Medicine 04/12/20 documented as of this encounter
--- OUTSIDE RECORDS SUMMARY | 2024-12-24 13:35 | XMS_ITS | Encounter Summary ---
Author Organization [facility] Address [address] [place] [address] Care Team Providers Care Change Management Manager Name Role Phone Name, Rafael TAVERA Primary Care Provider Christal Piedra MD Primary Care Provider Africa Ibrahim MD Primary Care Provider Un available Jose Lopez MD Primary Care Provider Unavail Javier Patel MD Primary Care Provider [phone] Reason for Visit * Reason Onset Date Comments Wrist Pain 05/12/2014 fell, hurt right wrist Encounter Details Date Type Department Care Team Description 05/12/2014 Telephone Adult [address] [phone] Name, MD Rafael Wrist Pain (fell, hurt [...] Friday05/09/14 PCP: Rafael Name Payor: [facility] / Plan: [facility] MEDICARE PLUS $15 [place] / Product Type: MEDICARE [id number] documented in this encounter Plan of Treatment Not on file documented as of this encounter Visit Diagnoses Not on filedocumented in this encounter Care Teams Change Management Manager Relationship Specialty Start Date End Date Name, MD Rafael PCP - General 12/13/09 11/14/15 Christal Celestin MD PCP - General Internal Medicine 11/15/15 11/30/18 Africa Blankenship MD PCP - General Internal Medicine 12/01/18 9 Jose Lopez MD PCP - General Internal Medicine 01/19/19 04/11/20 Javier Eller MD [address] [place] [id number] PCP - General Internal Medicine 04/12/20 documented as of this encounter
--- OUTSIDE RECORDS SUMMARY | 2024-12-24 13:35 | XMS_ITS | Encounter Summary ---
Author Organization [facility] Address [address] [place] [address] Care Team Providers Care Tester Printed Circuit Boards Name Role Phone Name, Rafael TAVERA Primary Care Provider Christal Piedra MD Primary Care Provider Africa Ibrahim MD Primary Care Provider Un available Jose Lopez MD Primary Care Provider Unavail able Javier Eller MD Primary Care Provider [phone] Encounter Details Date Type Department Care Team Description 03/18/2012 Release of Information Medical Records [address] [place] [id number] Abstract, Provider Social History Tobacco Use Types [...] on filedocumented in this encounter Care Teams Tester Printed Circuit Boards Relationship Specialty Start Date End Date Name, MD Rafael PCP - General 12/13/09 11/14/15 Christal Celestin MD PCP - General Internal Medicine 11/15/15 11/30/18 Africa Blankenship MD PCP - General Internal Medicine 12/01/18 9 Jose Lopez MD PCP - General Internal Medicine 01/19/19 04/11/20 Javier Eller MD [address] [place] [address] [id number] PCP - General Internal Medicine 04/12/20 documented as of this encounter
--- OUTSIDE RECORDS SUMMARY | 2024-12-24 13:35 | XMS_ITS | Encounter Summary ---
Author Organization [facility] Address [address] [place] [address] Care Team Providers Care Plant Protection Officer Name Role Phone Name, Rafael TAVERA Primary Care Provider Christal Piedra MD Primary Care Provider Africa Ibrahim MD Primary Care Provider Un available Jose Lopez MD Primary Care Provider Unavail Javier Patel MD Primary Care Provider [phone] Reason for Visit * Reason Onset Date Comments radiology 04/23/2013 mri testing. Encounter Details Date Type Department Care Team Description 04/23/2013 Telephone Rheumatology - [address] [phone] Randolph Layne MD radiology (mri testing.) Social [...] - 1.5 mg/dL 04/26/2013 12:13 PM EDT [facility] GFR > 60 >60 04/26/2013 12:13 PM EDT [facility] Comment: If patient is -Pakistani, multiply result by 1.21 Chronic Kidney Disease: < 60 ml/min/1.73 square meters Kidney Failure: < 15 ml/min/1.73 square meters 04/26/2013 7:55 AM EDT 04/26/2013 7:55 AM EDT Randolph Layne MD LAB [address] * BLOOD UREA NITROGEN (BUN) (04/26/2013 7:55 AM EDT) BUN 23 5 - 25 mg/dL 04/26/2013 12:09 PM EDT [facility] 04/26/2013 7:55 AM EDT 04/26/2013 7:55 AM EDT Randolph Layne MD LAB [address] documented in this encounter Visit Diagnoses Diagnosis Encounter for long-term (current) use of other medications- Primary documented in this encounter Care Teams Plant Protection Officer Relationship Specialty Start Date End Date Name, MD Rafael PCP - General 12/13/09 11/14/15 Christal Celestin MD PCP - General Internal Medicine 11/15/15 11/30/18 Africa Blankenship MD PCP - General Internal Medicine 12/01/18 9 Jose Lopez MD PCP - General Internal Medicine 01/19/19 04/11/20 Javier Eller MD [address] [place] [id number] PCP - General Internal Medicine 04/12/20 documented as of this encounter
--- OUTSIDE RECORDS SUMMARY | 2024-12-24 13:35 | XMS_ITS | Encounter Summary ---
Author Organization [facility] Address [address] [place] [address] Care Team Providers Care Tie Maker Name Role Phone Christal Celestin MD Primary Care Provider Africa Ibrahim MD Primary Care Provider Un available Jose Lopez MD Primary Care Provider Unavail able Javier Eller MD Primary Care Provider [phone] Encounter Details Date Type Department Care Team Description 06/03/2016 Grain Elevator Man Report Medical Records [address] [place] [address] Raysa Brunson NP Social History Tobacco Use [...] on filedocumented in this encounter Care Teams Tie Maker Relationship Specialty Start Date End Date Christal Celestin MD PCP - General Internal Medicine 11/15/15 11/30/18 Africa Blankenship MD PCP - General Internal Medicine 12/01/18 9 Jose Lopez MD PCP - General Internal Medicine 01/19/19 04/11/20 Javier Eller MD [address] [place] [address] PCP - General Internal Medicine 04/12/20 documented as of this encounter
--- OUTSIDE RECORDS SUMMARY | 2024-12-24 13:35 | XMS_ITS | Clinical Summary ---
Author Organization [facility] Address [address] [place] [address] Care Team Providers Care Pole Peeling Machine Operator Helper Name Role Phone Javier Eller MD Primary Care Provider [phone] Allergies Active Allergy Reactions Severity Noted Date Comments Naproxen Sodium Rash/Dermatitis 04/26/2006 Pepcid Rash/Dermatitis 04/03/2016 Tongue rash Alendronate Sodium 05/30/2011 gastritis Sulfacetamide Sodium 04/26/2006 tongue rash Medications Medication Sig Dispensed Refills Start Date End Date Status betamethasone valerate (VALISONE) 0.1 % lotion Apply to affected areas daily 60 mL 4 12/12/2016 Active triamcinolone (KENALOG) 0.1 % ointmentIndications:Bossman icose veins of both lower extremities with inflammation To affected area 2-3 times daily 60 g 2 07/31/2018 Active mometasone (ELOCON) 0.1 % cream Apply sparingly twice a day to eczema as needed 45 g 2 08/12/2019 Active alendronate (FOSAMAX) 70 MG tabletIndications:Osteo penia, unspecified location Take 1 Tab by mouth every 7 days. 13 Tab 3 11/16/2019 Active fexofenadine 180 MG tablet TAKE 1 TABLET BY MOUTH DAILY 90 Tab 1 02/14/2020 Active omeprazole (PRILOSEC) 20 MG capsule Take 1 Cap by mouth daily. 90 Cap 1 03/09/2020 Active sertraline (ZOLOFT) 50 MG tablet TAKE ONE TABLET BY MOUTH EVERY DAY 90 Tab 1 03/09/2020 Active fluticasone 50 MCG/ACT nasal spray 1 [place] by Nasal route daily. 48 g 1 03/09/2020 Active simvastatin (ZOCOR) 20 MG tablet Take 1 Tab by mouth at bedtime. 90 Tab 1 03/09/2020 Active hydrochlorothiazide (HYDRODIURIL) 25 MG tablet Take 1-2 Tabs by mouth daily as needed (leg swelling). 60 Tab 5 03/09/2020 Active sertraline (ZOLOFT) 25 MG tablet Take 1 tablet with the Zoloft 50 mg tablet daily. 90 Tab 1 04/20/2020 Active predniSONE (DELTASONE) 5 MG tabletIndications:Infla mmatory arthritis Take 1 Tab by mouth daily. 60 Tab 1 06/27/2020 Active levothyroxine (SYNTHROID, LEVOTHROID) 25 MCG tabletIndications:Acqui red hypothyroidism Take 1 Tab by mouth daily. 30 Tab 11 06/30/2020 Active celecoxib (CELEBREX) 200 MG capsuleIndications:Infl ammatory arthritis TAKE ONE CAPSULE BY MOUTH EVERY DAY NEEDED FOR PAIN 90 Cap 1 07/17/2020 Active Active Problems Problem Noted Date Hypothyroid 06/30/2020 Vitamin D deficiency 06/30/2020 Essential hypertension 01/19/2019 History of radius fracture 02/29/2016 Overview: January 2016 from a fall History of carpal tunnel surgery of left wrist and right 02/24/2015 Overview: Much better after surgery -02/2015 DDD (degenerative disc disease), cervica l 07/12/2014 Major depression 07/05/2013 Esophageal reflux 11/05/2012 Urinary incontinence 11/26/2011 Rhinitis, allergic 05/30/2011 Hyperlipidemia 02/11/2011 Inflammatory arthritis 09/28/2010 Overview: RF negative; hydroxychloroquine started 10/23; eye exam OK 11/24, 09/27, 05/29, 05/30 Methotrexate added 03/27 thru 10/29, remained on hydroxychloroquine Patient stopped hydroxychloroquine due to headaches, ? Blurry vision Last Assessment & Plan: Take 1mg prednisone every other day and stop on July 13 Call with any problems Lab before next visit Osteopenia 08/15/2010 Overview: Jul 2010 BMD T scores -1.9 in LS spine and hip. Alendronate ? Caused hip pain and stomach ache? Restarted February 2016 Polymyalgia 02/18/2008 Overview: Onset fall 2006 - prednisone through 09/19. 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 VENTRAL ABDOMINAL WALL HERNIA 04/26/2006 KELOID SCAR, RECONSTRUCTIVE SURGERY ON T HE ABDOMEN 04/26/2006 Immunizations Name Administration Dates Next Due Influenza (> 6 Months) 07/04/2017,2013,07/05/2013,07/13,07/26/2011,06/19/2010,07/07/2009 ,06/28/2008,09/27/2005 Influenza Flu (PT Reported) 09/17/2016 Influenza vaccine high dose age 65 and over 06/27/2020,06/26/2019,06/22/2015 Pneumoccoccal(Adult) Polysac charide PPSV23 07/13/2012,06/20/2010 Pneumococcal Conjugate PCV-13 08/27/2017, 016 Pneumovax Adult(PT Reported) 11/04/2018 Shingrix (Patient reported) 05/05/2018 TD (STATE SUPPLIED FOR ADULT S AND CHILDREN) 01/28/2011,04/12/1995 Tdap 04/03/2016 Zostavax 07/13/2012 Family History Medical History Relation Name Comments drug abuse Daughter 4 suicide 36 [place] Father 52 CHF Mother 86 Relation Name Status Comments Daughter 1 Alive Daughter 2 Alive Daughter 3 Alive Daughter 4 Father Mother CHF Son 1 Alive Son 2 Alive Social History Tobacco Use Types Packs/Day Years Used Date Smoking Tobacco: Former Cigarettes 0.8 28 0 10/13/1956 - 10/13/1984 Smokeless Tobacco: Former Comments:quit in 1987 starte d smoking at 19 Alcohol Use Standard Drinks/Week Comments Yes 0 (1 standard drink = 0.6 oz pur e alcohol) rare Sex Assigned at Date Recorded Not on file Last Filed Vital Signs Vital Sign Reading Time Taken Comments Blood Pressure 120/82 06/27/2020 8:08 AM EDT Pulse 72 06/27/2020 8:08 AM EDT Temperature 36.6 ??C (97.8 ??F) 06/27/2020 8:08 AM ED T Respiratory Rate 16 06/27/2020 8:08 AM EDT Oxygen Saturation 98% 06/27/2020 8:08 AM EDT Inhaled Oxygen Concentration - - Weight 78.9 kg (174 lb) 06/27/2020 8:08 AM EDT Height 154.9 cm (5' 1 ) 06/27/2020 8:08 AM EDT Body Mass Index 32.88 06/27/2020 8:08 AM EDT Plan of Treatment Health Maintenance Due Date Last Done Comments Covid-19 Vaccine (#1) 02/09/1941 SHINGLES VACCINE (3 of 3) 06/30/2018 05/05/2018, 10/2011 MAMMOGRAM 01/20/2020 01/19/2019 (Refu sed), 02/24/2015 (Refused), 2013, Additional history exists BONE DENSITY SCREENING 01/19/2021 9 (Refused), 02/24/2015 (Refused), 01/18/2013, Additional history exists INFLUENZA (#1) 2024 06/27/2020, 06/13, 08/20/2018, Additional history exists BMI CHECK/ADVISE 10/13/2024 06/27/2020, 01/2020, 10/12/2019, Additional history exists CHOLESTEROL SCREENING 06/27/2025 06/27/2020 , 11/12/2019, 10/21/2019, Additional history exists DTAP/TDAP/TD (2 - Td or Tdap) 04/03/2026 04/03/2016, 01/28/2011, 04/12/1995 PNEUMOCOCCAL VACCINE Completed 11/04/2018, 08/27/2017, 01/17/2016, Additional history exists Care Teams Pole Peeling Machine Operator Helper Relationship Specialty Start Date End Date Javier Eller MD [address] [place] [address] [id number] PCP - General Internal Medicine 04/12/20
--- OUTSIDE RECORDS SUMMARY | 2024-12-24 13:35 | XMS_ITS | Encounter Summary ---
Author Organization [facility] Address [address] [place] [address] Care Team Providers Care Project Crew Worker Name Role Phone Christal Celestin MD Primary Care Provider Africa Ibrahim MD Primary Care Provider Un available Jose Lopez MD Primary Care Provider Unavail able Javier Eller MD Primary Care Provider [phone] Encounter Details Date Type Department Care Team Description 04/03/2016 Business Doc Medical Records [address] [place] [address] Abstract, Provider Social History Tobacco Use Types [...] on filedocumented in this encounter Care Teams Project Crew Worker Relationship Specialty Start Date End Date Christal Celestin MD PCP - General Internal Medicine 11/15/15 11/30/18 Africa Blankenship MD PCP - General Internal Medicine 12/01/18 9 Jose Lopez MD PCP - General Internal Medicine 01/19/19 04/11/20 Javier Eller MD [address] [place] [phone] PCP - General Internal Medicine 04/12/20 documented as of this encounter
--- OUTSIDE RECORDS SUMMARY | 2024-12-24 13:35 | XMS_ITS | Encounter Summary ---
Author Organization [facility] Address [address] [place] [address] Care Team Providers Care Gift Consultant Name Role Phone Christal Celestin MD Primary Care Provider Africa Ibrahim MD Primary Care Provider Un available Jose Lopez MD Primary Care Provider Javier Jurado MD Primary Care Provider [phone] Reason for Visit * Reason Onset Date Comments refill request 01/10/2017 Encounter Details Date Type Department Care Team Description 01/10/2017 Refill Adult Medicine [address] [id number] Christal Celestin MD refill request Social History [...] THE PATIENT'S LAST APPOINTMENT IN ADULT MEDICINE? [id number] WHEN WAS THE LAST TIME THE PATIENT SAW THEIR PCP? Same as above Does patient have an upcoming appointment? Yes [id number] (THE MEDICATION REQUESTED IS ON THE MED LIST ABOVE) All of the medications requested were on the CURRENT MEDS list Did you check the Pharmacy information above?: YES Patient wants: 90 -day supply Is this a mail order prescription request ? NO Patients current insurance carrier is: Payor: [facility] F[facility] / Plan: [facility] MEDICARE PREMIUM $15 [place] / Product Type: MEDICARE [id number] documented in this encounter Plan of Treatment Not on file documented as of this encounter Visit Diagnoses Not on filedocumented in this encounter Care Teams Gift Consultant Relationship Specialty Start Date End Date Christal Celestin MD PCP - General Internal Medicine 11/15/15 11/30/18 Africa Blankenship MD PCP - General Internal Medicine 12/01/18 9 Jose Lopez MD PCP - General Internal Medicine 01/19/19 04/11/20 Javier Eller MD [address] [place] [address] [id number] PCP - General Internal Medicine 04/12/20 documented as of this encounter
--- OUTSIDE RECORDS SUMMARY | 2024-12-24 13:35 | XMS_ITS | Encounter Summary ---
Author Organization [facility] Address [address] [place] [address] Care Team Providers Care Lease Administrator Name Role Phone Christal Celestin MD Primary Care Provider Africa Ibrahim MD Primary Care Provider Un available Jose Lopez MD Primary Care Provider Unavail able Javier Eller MD Primary Care Provider [phone] Encounter Details Date Type Department Care Team Description 01/18/2016 Business Doc Medical Records [address] [place] [address] Abstract, Provider Social History Tobacco Use Types [...] on filedocumented in this encounter Care Teams Lease Administrator Relationship Specialty Start Date End Date Christal Celestin MD PCP - General Internal Medicine 11/15/15 11/30/18 Africa Blankenship MD PCP - General Internal Medicine 12/01/18 9 Jose Lopez MD PCP - General Internal Medicine 01/19/19 04/11/20 Javier Eller MD [address] [place] [phone] PCP - General Internal Medicine 04/12/20 documented as of this encounter
--- OUTSIDE RECORDS SUMMARY | 2024-12-24 13:35 | XMS_ITS | Encounter Summary ---
Author Organization [facility] Address [address] [place] [address] Care Team Providers Care Welding Machine Operator Resistance Name Role Phone Name, Rafael TAVERA Primary Care Provider Christal Piedra MD Primary Care Provider Africa Ibrahim MD Primary Care Provider Un available Jose Lopez MD Primary Care Provider Unavail able Javier Eller MD Primary Care Provider Encounter Details Date Type Department Care Team Description 05/01/2012 Hospital Medical Records [address] [place] [address] Florian Reina MD, MD Social History Tobacco [...] on filedocumented in this encounter Care Teams Welding Machine Operator Resistance Relationship Specialty Start Date End Date Name, MD Rafael PCP - General 12/13/09 11/14/15 Christal Celestin MD PCP - General Internal Medicine 11/15/15 11/30/18 Africa Blankenship MD PCP - General Internal Medicine 12/01/18 9 Jose Lopez MD PCP - General Internal Medicine 01/19/19 04/11/20 Javier Eller MD [address] [place] [phone] PCP - General Internal Medicine 04/12/20 documented as of this encounter
--- OUTSIDE RECORDS SUMMARY | 2024-12-24 13:35 | XMS_ITS | Encounter Summary ---
Author Organization [facility] Address [address] [place] [address] Care Team Providers Care Tenant Relations Coordinator Name Role Phone Christal Celestin MD Primary Care Provider Africa Ibrahim MD Primary Care Provider Un available Jose Lopez MD Primary Care Provider Unavail able Javier Eller MD Primary Care Provider [phone] Encounter Details Date Type Department Care Team Description 08/29/2017 Orders Only Rheumatology - [address] [phone] Randolph Layne MD Social History Tobacco Use [...] on filedocumented in this encounter Care Teams Tenant Relations Coordinator Relationship Specialty Start Date End Date Christal Celestin MD PCP - General Internal Medicine 11/15/15 11/30/18 Africa Blankenship MD PCP - General Internal Medicine 12/01/18 9 Jose Lopez MD PCP - General Internal Medicine 01/19/19 04/11/20 Javier Eller MD [address] [place] [phone] PCP - General Internal Medicine 04/12/20 documented as of this encounter
--- OUTSIDE RECORDS SUMMARY | 2024-12-24 13:35 | XMS_ITS | Encounter Summary ---
Author Organization [facility] Address [address] [place] [address] Care Team Providers Care Supervisor [place] Name Role Phone Christal Celestin MD Primary Care Provider Africa Ibrahim MD Primary Care Provider Un available Jose Lopez MD Primary Care Provider Javier Jurado MD Primary Care Provider [phone] Reason for Visit * Reason Comments E-prescribe Rx Request Encounter Details Date Type Department Care Team Description 11/29/2018 Refill Adult Medicine [address] [address] Vibha Vazquez PA-C [address] [place] [address] E-prescribe Rx Request Social History Tobacco Use [...] N/A Patients current insurance carrier is: Payor: [facility] FFS / Plan: [employer] MEDICARE PREMIUM $10 [place] / Product Type: MEDICARE [id number] documented in this encounter Plan of Treatment Not on file documented as of this encounter Visit Diagnoses Not on filedocumented in this encounter Care Teams Supervisor [place] Relationship Specialty Start Date End Date Christal Celestin MD PCP - General Internal Medicine 11/15/15 11/30/18 Africa Blankenship MD PCP - General Internal Medicine 12/01/18 9 Jose Lopez MD PCP - General Internal Medicine 01/19/19 04/11/20 Javier Eller MD [address] [place] [id number] PCP - General Internal Medicine 04/12/20 documented as of this encounter
--- OUTSIDE RECORDS SUMMARY | 2024-12-24 13:35 | XMS_ITS | Encounter Summary ---
Author Organization [facility] Address [address] [place] [address] Care Team Providers Care Primer Powder Blender Wet Name Role Phone Jose Lopez MD Primary Care Provider Javier Jurado MD Primary Care Provider [phone] Encounter Details Date Type Department Care Team Description 01/19/2019 Telephone Adult Medicine - [place] [address] [place] [address] Bertha Lombardi MD [address] [place] [address] Social History Tobacco Use Types Packs/Day Years [...] EST [facility] Comment: If patient is -Thai, multiply result by 1.21 Chronic Kidney Disease: [...] AM EST Bertha Lombardi MD LAB [facility] * (ABNORMAL) BASIC METABOLIC PANEL (01/23/2019 9:18 [...] EDT [facility] Comment: If patient is -Thai, multiply result by 1.21 Chronic Kidney Disease: [...] Primary documented in this encounter Care Teams Primer Powder Blender Wet Relationship Specialty Start Date End Date Jose Lopez MD PCP - General Internal Medicine 01/19/19 04/11/20 Javier Eller MD [address] [place] [id number] PCP - General Internal Medicine 04/12/20 documented as of this encounter
--- OUTSIDE RECORDS SUMMARY | 2024-12-24 13:36 | XMS_ITS | Encounter Summary ---
Author Organization [facility] Address [address] [place] [address] Care Team Providers Care Director Emergency Department Name Role Phone Name, Rafael TAVERA Primary Care Provider Christal Piedra MD Primary Care Provider Africa Ibrahim MD Primary Care Provider Un available Jose Lopez MD Primary Care Provider Unavail able Javier Eller MD Primary Care Provider [phone] Encounter Details Date Type Department Care Team Description 02/21/2012 Data Warehouse Administrator Report Medical Records [address] [place] [address] Florian Reina MD, MD Social History Tobacco [...] filedocumented in this encounter Care Teams Director Emergency Department Relationship Specialty Start Date End Date Name, MD Rafael PCP - General 12/13/09 11/14/15 Christal Celestin MD PCP - General Internal Medicine 11/15/15 11/30/18 Africa Blankenship MD PCP - General Internal Medicine 12/01/18 9 Jose Lopez MD PCP - General Internal Medicine 01/19/19 04/11/20 Javier Eller MD [address] [place] [address] [id number] PCP - General Internal Medicine 04/12/20 documented as of this encounter
--- OUTSIDE RECORDS SUMMARY | 2024-12-24 13:36 | XMS_ITS | Patient Health Record ---
[facility] Address [address] [facility] [place] [address] Care Team Providers Care Multi Share Program Coordinator Name Role Phone Ismael Davis MD Primary Care Provider Kaiser Cerna Unavailable [phone] Allergies Allergen (clinical drug ingredient) Drug/Non Drug [...] Status Risk Notes Problem Acquired hallux valgus (72285096) Hallux valgus (acquired), left foot (M20.12) Active confirmed Problem Acquired hallux valgus (58156349) Hallux valgus (acquired), right foot (M20.11) Active confirmed Problem Plantar fascial fibromatosis (86126931) 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 Problem Acquired hammer toe of right foot (141234325849890 5) Other hammer toe(s) (acquired), right foot (M20.41) Active confirmed Problem Acquired hammer toe of left foot (272907821932453 3) Other hammer toe(s) (acquired), left foot (M20.42) Active confirmed Vital Signs Blood pressure diastolic 70 mm Hg 05/03/2024 Height 4ft 11in in 05/03/2024 Blood pressure systolic 138 mm Hg 05/03/2024 Weight 160 lbs 05/03/2024 BMI 32.31 kg/m2 05/03/2024 Encounters Encounter Location Date Provider Diagnosis [facility] [address] [place] [address] 01/05/2024 [facility] Tinea unguium B35.1 ; [...] L60.0 and Plantar fascial fibromatosis M72.[address] [address] 05/03/2024 [facility] Tinea unguium B35.1 ; [...] L60.0 and Plantar fascial fibromatosis M72.[address] [address] 08/03/2024 [facility] Assessments Encounter Date Diagnosis (ICD Code) Assessment Notes Treatment Notes Treatment Clinical Notes Section Notes 01/05/2024 Tinea unguium (ICD-10 - B35.1) 01/05/2024 Pain in right toe(s) (ICD-10 - M79.674) 05/03/2024 Tinea unguium (ICD-10 - B35.1) 05/03/2024 Pain in right toe(s) (ICD-10 - M79.674) 05/03/2024 Pain in left toe(s) (ICD-10 - M79.675) 01/05/2024 Pain in left toe(s) (ICD-10 - M79.675) 01/05/2024 Hallux valgus (acquired), left foot (ICD-10 - M20.12) 05/03/2024 Hallux valgus (acquired), left foot (ICD-10 - M20.12) 05/03/2024 Hallux valgus (acquired), right foot (ICD-10 - M20.11) 01/05/2024 Hallux valgus (acquired), right foot (ICD-10 - M20.11) 01/05/2024 Other hammer toe(s) (acquired), left foot (ICD-10 - M20.42) 05/03/2024 Other hammer toe(s) (acquired), left foot (ICD-10 - M20.42) 01/05/2024 Other hammer toe(s) (acquired), right foot (ICD-10 - M20.41) 05/03/2024 Other hammer toe(s) (acquired), right foot (ICD-10 - M20.41) 01/05/2024 Tailor's bunion of left foot (ICD-10 - M21.622) 05/03/2024 Tailor's bunion of left foot (ICD-10 - M21.622) 05/03/2024 Tailor's bunion of right foot (ICD-10 - M21.621) 01/05/2024 Tailor's bunion of right foot (ICD-10 - M21.621) 01/05/2024 Xerosis cutis (ICD-10 - L85.3) 05/03/2024 Xerosis cutis (ICD-10 - L85.3) 05/03/2024 Ingrowing nail (ICD-10 - L60.0) 01/05/2024 Ingrowing nail (ICD-10 - L60.0) 01/05/2024 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 - M72.2) [...] Date [facility] [place] Medicare Advantage [address] [place] [address] [id number] Vero Ramírez Self - patient is the insured Medical (General) History Medical History History ICD Code Arthritis Back,Hip,and Knee pain Depression Headaches/Migraines Kidney disease Measles Mumps Chicken pox Surgical History Surgery Date(Month/Year) hysterectomy gall bladder Hospitalization History Reason Date(Month/Year) [facility]- Bee sting 04/23/24 [facility] [place]- Rheumatoid arthritis 11/2023
--- OUTSIDE RECORDS SUMMARY | 2024-12-24 13:36 | XMS_ITS | Encounter Summary ---
Author Organization [facility] Address [address] [place] [address] Care Team Providers Care Tour Sales Representative Name Role Phone Name, Rafael TAVERA Primary Care Provider Christal Piedra MD Primary Care Provider Africa Ibrahim MD Primary Care Provider Un available Jose Lopez MD Primary Care Provider Unavail able Javier Eller MD Primary Care Provider [phone] Encounter Details Date Type Department Care Team Description 01/13/2012 Manager Pipeline Report Medical Records [address] [place] [address] Raysa Brunson, JOSH Social History Tobacco Use [...] on filedocumented in this encounter Care Teams Tour Sales Representative Relationship Specialty Start Date End Date Name, MD Rafael PCP - General 12/13/09 11/14/15 Christal Celestin MD PCP - General Internal Medicine 11/15/15 11/30/18 Africa Blankenship MD PCP - General Internal Medicine 12/01/18 9 Jose Lopez MD PCP - General Internal Medicine 01/19/19 04/11/20 Jaiver Eller MD [address] [place] [id number] PCP - General Internal Medicine 04/12/20 documented as of this encounter
--- OUTSIDE RECORDS SUMMARY | 2024-12-24 13:36 | XMS_ITS | Encounter Summary ---
Author Organization [facility] Address [address] [place] [address] Care Team Providers Care Extension Service Specialist In Charge Name Role Phone Name, Rafael TAVERA Primary Care Provider Christal Piedra MD Primary Care Provider Africa Ibrahim MD Primary Care Provider Un available Jose Lopez MD Primary Care Provider Unavail able Javier Eller MD Primary Care Provider [phone] Encounter Details Date Type Department Care Team Description 09/06/2014 Technical Account Manager Report Medical Records [address] [place] [address] Gael Martinez MD Social History Tobacco Use [...] on filedocumented in this encounter Care Teams Extension Service Specialist In Charge Relationship Specialty Start Date End Date Name, MD Rafael PCP - General 12/13/09 11/14/15 Christal Celestin MD PCP - General Internal Medicine 11/15/15 11/30/18 Africa Blankenship MD PCP - General Internal Medicine 12/01/18 9 Jose Lopez MD PCP - General Internal Medicine 01/19/19 04/11/20 Javier Eller MD [address] [place] [address] [id number] PCP - General Internal Medicine 04/12/20 documented as of this encounter
--- OUTSIDE RECORDS SUMMARY | 2024-12-24 13:36 | XMS_ITS ---
Author Organization [facility] Address [address] [place] [address] Care Team Providers Care Sifter And Miller Name Role Phone Ismael Davis MD Primary Care Provider Kaiser Cerna [phone] REASON FOR VISIT Last PCP Visit: 04/26/24, Ingrown nail(s) Medications Medication SIG (Take, Route, Frequency, Duration) Notes Start Date End Date Status Voltaren 1 % as directed Externally Active Night Splint AFO - L1930 as directed Active Problems Problem Type SNOMED Code ICD Code Onset Dates Problem Status W/U Status Risk Notes Problem Plantar fascial fibromatosis (72077957) 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 Encounters Encounter Location Date Provider Diagnosis [facility] [address] [place] [address] 08/05/2024 Kaiser Rdidle Tinea unguium B35.1 ; Pain in right [...] * Vero CONNELLYDOB: [birth year] (84 yo F)Acc No.[id number]:08/05/2024 Progress Note Patient:?Vero CONNELLY Provider:?Kaiser Riddle DPM :1940???Age:83 Y???Sex:Female D ate:08/05/2024 Address: [address], [facility], [facility] Pcp:Ismael Davis MD Subjective: * Chief Complaints: [...] surgical procedures to prevent recurrence.? * Procedure Codes:?46400 Avuls ion Plate, Modifiers: T1 * Follow Up:?3 Months * Images: * The named appointment provid er may or may not be the originator of this progress note, and it is not deemed complete until electronically signed by the appointment provider. Sign off status: Pending * Provider:Alexander Riddle DPM Date:? 024 Generated for Astrid mello/Jason/Rhett on:?12/24/2024 01:35 PM EDT History and Physical Notes * [...]
--- OUTSIDE RECORDS SUMMARY | 2024-12-24 13:36 | XMS_ITS ---
Author Organization [facility] Address [address] [facility] [place] [address] Care Team Providers Care Supervisor Patching Name Role Phone Ismael Davis MD Primary Care Provider Kaiser Cerna Unavailable [phone] Allergies Allergen (clinical drug ingredient) Drug/Non Drug [...] 024 Encounters Encounter Location Date Provider Diagnosis [facility] [address] [place] [address] 05/03/2024 Kaiser Riddel Tinea unguium B35.1 ; Pain in right [...] * Vero CONNELLYDOB: [birth year] (83 yo F)Acc No.[id number]:05/03/2024 Progress Note Patient:?DarrellAguilaly Provider:?Kaiser Riddle DPM :1940???Age:83 Y???Sex:Female D ate:05/03/2024 Address:[address], [place] , [place] Pcp:Ismael Davis MD Subjective: * Chief Complaints: [...] Exercise. ?Marital status: . 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 * Medications:?TakingAlendrona te Sodium 70 MG Tablet [...] surgical procedures to prevent recurrence.? * Procedure Codes:?25410 Avuls ion Plate, Modifiers: T1 * Preventive [...] DPM Date:? 024 Generated for Astrid mello/Faxing/eTransmitting on:?12/24/2024 01:36 PM EDT History and Physical Notes * [...]
--- OUTSIDE RECORDS SUMMARY | 2024-12-24 13:36 | XMS_ITS | Encounter Summary ---
Author Organization [facility] Address [address] [place] [address] Care Team Providers Care Marketing Co Op Name Role Phone Christal Celestin MD Primary Care Provider Africa Ibrahim MD Primary Care Provider Un available Jose Lopez MD Primary Care Provider Unavail able Javier Eller MD Primary Care Provider [phone] Encounter Details Date Type Department Care Team Description 05/11/2018 Transfer Records Medical Records [address] [place] [address] Abstract, Provider Social History Tobacco Use Types [...] on filedocumented in this encounter Care Teams Marketing Co Op Relationship Specialty Start Date End Date Christal Celestin MD PCP - General Internal Medicine 11/15/15 11/30/18 Africa Blankenship MD PCP - General Internal Medicine 12/01/18 9 Jose Lopez MD PCP - General Internal Medicine 01/19/19 04/11/20 Javier Eller MD [address] [place] [address] [id number] PCP - General Internal Medicine 04/12/20 documented as of this encounter
--- OUTSIDE RECORDS SUMMARY | 2024-12-24 13:36 | XMS_ITS | Encounter Summary ---
Author Organization [facility] Address [address] [place] [address] Care Team Providers Care Bowstring Maker Name Role Phone Name, Rafael TAVERA Primary Care Provider Christal Piedra MD Primary Care Provider Africa Ibrahim MD Primary Care Provider Un available Jose Lopze MD Primary Care Provider Unavail able Javier Eller MD Primary Care Provider [phone] Encounter Details Date Type Department Care Team Description 09/02/2014 Release of Information Medical Records [address] [place] [address] Abstract, Provider Social History Tobacco Use Types [...] on filedocumented in this encounter Care Teams Bowstring Maker Relationship Specialty Start Date End Date Name, MD Rafael PCP - General 12/13/09 11/14/15 Christal Celestin MD PCP - General Internal Medicine 11/15/15 11/30/18 Africa Blankenship MD PCP - General Internal Medicine 12/01/18 9 Jose Lopez MD PCP - General Internal Medicine 01/19/19 04/11/20 Javier Eller MD [address] [place] [address] PCP - General Internal Medicine 04/12/20 documented as of this encounter
--- OUTSIDE RECORDS SUMMARY | 2024-12-24 13:36 | XMS_ITS | Encounter Summary ---
Author Organization [facility] Address [address] [place] [address] Care Team Providers Care Systems Administrator Name Role Phone Name, Rafael TAVERA Primary Care Provider Christal Piedra MD Primary Care Provider Africa Ibrahim MD Primary Care Provider Un available Jose Lopez MD Primary Care Provider Unavail able Javier Eller MD Primary Care Provider [phone] Encounter Details Date Type Department Care Team Description 05/21/2014 Release of Information Medical Records [address] [place] [address] Abstract, Provider Social History Tobacco Use Types [...] on filedocumented in this encounter Care Teams Systems Administrator Relationship Specialty Start Date End Date Name, MD Rafael PCP - General 12/13/09 11/14/15 Christal Celestin MD PCP - General Internal Medicine 11/15/15 11/30/18 Africa Blankenship MD PCP - General Internal Medicine 12/01/18 9 Jose Lopez MD PCP - General Internal Medicine 01/19/19 04/11/20 Javier Eller MD [address] [place] [address] PCP - General Internal Medicine 04/12/20 documented as of this encounter
--- OUTSIDE RECORDS SUMMARY | 2024-12-24 13:36 | XMS_ITS ---
Author Organization [facility] Address [address] [place] [address] Care Team Providers Care Gasoline Tractor Operator Name Role Phone Ismael Davis MD Primary Care Provider Kaiser Cerna [phone] REASON FOR VISIT cx 08/05 Encounters Encounter Location Date Provider Diagnosis [facility] [address] [place] [address] 08/03/2024 Kaiser Riddle Plan Of Treatment No Information Progress Notes * Vero CONNELLYDOB: [birth year] (83 yo F)Acc No.[id number]:08/03/2024 Patient:?DarrellVero :1940???Age:83 Y???Sex:Female Address:[address], [place], [address] * true * Date:? Generated for Printi ng/Facoreyg/eTransmitting on:?12/24/2024 01:36 PM EDT
--- OUTSIDE RECORDS SUMMARY | 2024-12-24 13:36 | XMS_ITS | Encounter Summary ---
Author Organization [facility] Address [address] [place] [address] Care Team Providers Care Delicatessen Manager Name Role Phone Christal Celestin MD Primary Care Provider Africa Ibrahim MD Primary Care Provider Un available Jose Lopez MD Primary Care Provider Javier Jurado MD Primary Care Provider [phone] Reason for Referral * EXTERNAL (Urgent) - Authorized/Booked Specialty Diagnoses / Procedures Referred By Mami stephenson Referred To Contact Physical Therapy Diagnoses Primary localized osteoarthrosis of lower leg, unspecified laterality Unsteady gait Procedures REFERRAL TO PHYSICAL THERAPY Randolph Layne MD [address] [place] [address] External Phys Thrpy Referral ID Status Reason Start Date Expiration Date V isits Requested Visits Authorized SEE NOTE Authorized/B ooked 06/26/2018 09/25/2018 1 1 Reason for Visit * Reason Onset Date Comments Staff Accountant Feedback 06/26/2018 [facility] Encounter Details Date Type Department Care Team Description 06/26/2018 Telephone Rheumatology - [address] [address] Randolph Layne MD Staff Accountant Feedback ([facility]) Social History Tobacco [...] gait documented in this encounter Care Teams Delicatessen Manager Relationship Specialty Start Date End Date Christal Celestin MD PCP - General Internal Medicine 11/15/15 11/30/18 Africa Blankenship MD PCP - General Internal Medicine 12/01/18 9 Jose Lopez MD PCP - General Internal Medicine 01/19/19 04/11/20 Javier Eller MD [address] [place] [address] PCP - General Internal Medicine 04/12/20 documented as of this encounter
== END 2024-12-24 12:17 | disposition home or self-care (01) ==
LOC: HO.PMC 11:46
PROVIDERS: PCP Internal Medicine; Visit Provider Internal Medicine
DX: M25.811 Other specified joint disorders, right shoulder (principal); M54.16 Radiculopathy, lumbar region; W19.XXXA Unspecified fall, initial encounter
CPT/HCPCS: 99213

== ENCOUNTER → 2024-12-24 11:45 | Outpatient (BNVA) | payer MEDICARE, SELFPAY | PROVIDERS: PCP Internal Medicine; Visit Provider Internal Medicine | DX: M54.16 Radiculopathy, lumbar region (principal); M25.811 Other specified joint disorders, right shoulder; Z91.81 History of falling | CPT/HCPCS: 99212 ==

== ENCOUNTER 2025-01-04 09:58 | Outpatient (REF) | payer MEDICARE, SELFPAY ==
--- NOTE | ~2025-01-04 | XR_ITS ---
EXAMINATION: XR SHOULDER 2 OR MORE VIEWS RIGHT HISTORY: W19.XXXA - Unspecified fall, initial encounter COMPARISON: Comparison is made with the prior examination dated 11/28/2022. FINDINGS: Four views of the right shoulder are submitted. Osseous mineralization is normal. There is no fracture or dislocation. There is severe osteoarthritis of the glenohumeral joint with joint space narrowing. The humeral head is high riding, articulating with the undersurface of the acromium, consistent with rotator cuff arthropathy. There is mild to moderate degenerative change of the AC joint. The soft tissues are unremarkable. 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 Electronically signed by: Gary Milan MD 01/04/2025 03:29 PM EDT
--- OUTSIDE RECORDS SUMMARY | 2025-01-04 11:38 | XMS_ITS | Encounter Summary ---
Author Organization [facility] Address [address] [place] [address] Care Team Providers Care Grain Drier Name Role Phone Name, Rafael TAVERA Primary Care Provider Christal Piedra MD Primary Care Provider Africa Ibrahim MD Primary Care Provider Un available Jose Lopez MD Primary Care Provider Unavail able Javier Eller MD Primary Care Provider [phone] Encounter Details Date Type Department Care Team Description 08/27/2012 [place]man Machine Operator Report Medical Records [address] [place] [address] Florian Reina MD, MD Social History Tobacco [...] on filedocumented in this encounter Care Teams Grain Drier Relationship Specialty Start Date End Date Name, MD Rafael PCP - General 12/13/09 11/14/15 Christal Celestin MD PCP - General Internal Medicine 11/15/15 11/30/18 Africa Blankenship MD PCP - General Internal Medicine 12/01/18 9 Jose Lopez MD PCP - General Internal Medicine 01/19/19 04/11/20 Javier Eller MD [address] [place] [address] [id number] PCP - General Internal Medicine 04/12/20 documented as of this encounter
--- OUTSIDE RECORDS SUMMARY | 2025-01-04 11:38 | XMS_ITS | Encounter Summary ---
Author Organization [facility] Address [address] [place] [address] Care Team Providers Care Supervisor Drilling And Shooting Name Role Phone Name, Rafael TAVERA Primary Care Provider Ferny Adame MD Primary Care Provider [phone] Rebekah Moser MD Primary Care Provider [phone] Christal Celestin MD Primary Care Provider Africa Ibrahim MD Primary Care Provider Un available Jose Lopez MD Primary Care Provider Unavail able Javier Eller MD Primary Care Provider Encounter Details Date Type Department Care Team Description 03/12/2005 Orders Only Medical [address] [place] [address] [phone] Rebekah Moser MD [address] [place] [address] [phone] LONG-TERM (CURRENT) USE OF OTHER MEDICATIONS (Primary Dx) Social History Tobacco Use Types Packs/Day Years Used Date Smoking Tobacco: Never Assessed Sex Assigned at Date Recorded Not on file documented as of this encounter Plan of Treatment Scheduled Orders Name Type Priority Associated Diagnoses Orde r Schedule VENIPUNCTURE Lab Routine Long-Term (Current) Use Of Other Medications Ordered: 03/12/2005 documented as of this encounter Procedures Procedure Name Priority Date/Time Associated Diagnosis Comments SEDIMENTATION RATE-CHICOPEE Routine 03/12/2005 11:13 AM EDT Long-Term (Current) Use Of Other Medications CHG BASIC METABOLIC PANEL CALCIUM TOTAL Routine 03/12/2005 11:13 AM EDT Long-Term (Current) Use Of Other Medications CHG RHEUMATOID FACTOR QUANTITATIVE Routine 03/12/2005 11:13 AM EDT Long-Term (Current) Use Of Other Medications CHG ANTINUCLEAR ANTIBODIES MARK Routine 03/12/2005 11:13 AM EDT Long-Term (Current) Use Of Other Medications CHG BLOOD COUNT COMPLETE AUTO&AUTO DIFRNTL WBC Routine 03/12/2005 11:13 AM EDT Long-Term (Current) Use Of Other Medications THYROID PROFILE W/TSH Routine 03/12/2005 11:13 AM EDT Long-Term (Current) Use Of Other Medications documented in this encounter Results * (ABNORMAL) SEDIMENTATION RATE-[place] (03/12/2005 11:13 AM EDT) Pathologist [facility] ERYTHROCYTE SEDIMENTATION RATE 34(H) 0 - 20 MM/HR [facility] Comment: Performed at [facility], [address] [place] [address] 03/12/2005 11:1 3 AM EDT 03/12/2005 11:17 AM EDT Rebekah Moser MD LAB Performing Organization Address [facility] Co de Phone Number [facility] * RHEUMATOID FACTOR ASSAY (03/12/2005 11:13 AM EDT) [facility] RHEUMATOID FACTOR <10 <10 IU/ml [facility] 03/12/2005 11:1 3 AM EDT 03/12/2005 11:17 AM EDT [facility]ah [facility]oser MD [facility] * ANTINUCLEAR ANTIBODIES, ASSAY (03/12/2005 11:13 AM EDT) Pathologist [facility] ANTI-NUCLEAR ANTIBODY SCREEN NEGATIVE NEGATIVE [facility] Comment: MARK test should be ordered only if a clinical evidence ofSLE or other rheumatic condition exists. ??MARK test shouldnot be used for random screening for SLE. Reviewed by Dr. Sharpe 03/12/2005 11:1 3 AM EDT 03/12/2005 11:17 AM EDT Rebekah Moser MD LAB Performing Organization Address City/[facility]/ZIP Co de Phone Number [facility] * CBC (AUTO DIFF & PLATELET) (03/12/2005 11:13 AM EDT) WHITE BLOOD COUNT 9.7 4.8 - 10.8 x10-3 [facility] RED BLOOD COUNT 4.4 3.8 - 4.8 x10-6 [facility] Hemoglobin 13.4 12.0 - 15.0 g/dL [facility] Hematocrit 39.8 36 - 46 % [facility] MEAN CORPUSCULAR VOLUME 91.1 79 - 98 fl [facility] MEAN CORPUSCULAR HEMOGLOBIN 30.7 27 - 32 pg [facility] MEAN CORPUSCULAR HGB CONC 33.7 32 - 37 g/dl [facility] RED CELL DISTRIBUTION WIDTH 12.7 11 - 15 % [facility] PLT COUNT 345 130 - 400 x10-3 [facility] NEUTROPHILS % 73 41 - 85 % [facility] LYMPH % 18 15 - 48 % [facility] 03/12/2005 11:1 3 AM EDT 03/12/2005 11:17 AM EDT Rebekah Moser MD LAB Performing Organization Address [facility]/ZIP Co de Phone Number [facility] * THYROID PROFILE W/TSH (03/12/2005 11:13 AM EDT) TSH CASCADE 1.90 0.40 - 4.00 uIU/ml [facility] 03/12/2005 11:1 3 AM EDT 03/12/2005 11:17 AM EDT Rebekah Moser MD LAB [facility] * (ABNORMAL) BASIC METABOLIC PANEL (03/12/2005 11:13 AM EDT) GLUCOSE 85 70 - 110 mg/dL [facility] Blood Urea Nitrogen 21 5 - 25 mg/dL [facility] creatinine 0.6(L) 0.7 - 1.5 mg/dL [facility] Sodium 141 133 - 145 mEq/L [facility] Potassium 4.4 3.5 - 5.2 mEq/L [facility] Chloride 109(H) 96 - 108 mEq/L [facility] CARBON DIOXIDE (CO2) 22.0 21.0 - 32.0 mEq/L [facility] CALCIUM 9.6 8.5 - 10.5 mg/dL [facility] 03/12/2005 11:1 3 AM EDT 03/12/2005 11:17 AM EDT Rebekah Moser MD LAB [facility] documented in this encounter Visit Diagnoses Diagnosis Encounter for long-term (current) use of other medications- Primary documented in this encounter Care Teams Supervisor Drilling And Shooting Relationship Specialty Start Date End Date Name, MD Rafael PCP - General 12/13/09 11/14/15 Ferny Gonzalez MD [address] [place] [address] PCP - General 04/21/07 12/12/09 Rebekah Moser MD [address] [place] [address] PCP - General 08/31/1999 04/20/07 Christal Celestin MD [address] [place] [address] PCP - General Internal Medicine 11/15/15 11/30/18 Africa Blankenship MD [address] [place] [address] 119[address] PCP - General Internal Medicine 12/01/18 01/18/19 Jose Lopez MD [address] [place] [address] PCP - General Internal Medicine 01/19/19 04/11/20 Javier Eller MD [address] [place] [address] PCP - General Internal Medicine 04/12/20 documented as of this encounter
--- OUTSIDE RECORDS SUMMARY | 2025-01-04 11:38 | XMS_ITS | Encounter Summary ---
Author Organization [facility] Address [address] [place] [address] Care Team Providers Care Christmas Tree Farm Manager Name Role Phone Name, Rafael TAVERA Primary Care Provider Christal Piedra MD Primary Care Provider Africa Ibrahim MD Primary Care Provider Un available Jose Lopez MD Primary Care Provider Unavail able Javier Eller MD Primary Care Provider [phone] Encounter Details Date Type Department Care Team Description 05/29/2012 Customer Sales Service Manager Report Medical Records [address] [place] [address] Raysa Brunson, JOSH Social History Tobacco Use [...] on filedocumented in this encounter Care Teams Christmas Tree Farm Manager Relationship Specialty Start Date End Date Name, MD Rafael PCP - General 12/13/09 11/14/15 Christal Celestin MD PCP - General Internal Medicine 11/15/15 11/30/18 Africa Blankenship MD PCP - General Internal Medicine 12/01/18 9 Jose Lopez MD PCP - General Internal Medicine 01/19/19 04/11/20 Javier Eller MD [address] [place] [address] [phone] PCP - General Internal Medicine 04/12/20 documented as of this encounter
--- OUTSIDE RECORDS SUMMARY | 2025-01-04 11:38 | XMS_ITS | Encounter Summary ---
Author Organization [facility] Address [address] [place] [address] Care Team Providers Care Fiberglass Insulation Installer Name Role Phone Jose Lopez MD Primary Care Provider Unavail able Javier Eller MD Primary Care Provider [phone] Encounter Details Date Type Department Care Team Description 02/14/2020 Telephone Adult Medicine [address] [address] Jose Lopez MD Social History [...] on filedocumented in this encounter Care Teams Fiberglass Insulation Installer Relationship Specialty Start Date End Date Jose Lopez MD PCP - General Internal Medicine 01/19/19 04/11/20 Javier Eller MD [address] [place] [address] PCP - General Internal Medicine 04/12/20 documented as of this encounter
--- OUTSIDE RECORDS SUMMARY | 2025-01-04 11:38 | XMS_ITS | Patient Health Record ---
[facility] Address [address] [facility] [place] [address] Care Team Providers Care Wall Covering Contractor Name Role Phone Ismael Davis MD Primary Care Provider Kaiser Cerna Unavailable [phone] Allergies Allergen (clinical drug ingredient) Drug/Non Drug [...] Status Risk Notes Problem Acquired hallux valgus (25643562) Hallux valgus (acquired), left foot (M20.12) Active confirmed Problem Acquired hallux valgus (40292590) Hallux valgus (acquired), right foot (M20.11) Active confirmed Problem Plantar fascial fibromatosis (66645969) 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 Problem Acquired hammer toe of right foot (093175108603418 5) Other hammer toe(s) (acquired), right foot (M20.41) Active confirmed Problem Acquired hammer toe of left foot (077248264793569 3) Other hammer toe(s) (acquired), left foot (M20.42) Active confirmed Vital Signs Blood pressure diastolic 70 mm Hg 05/03/2024 Height 4ft 11in in 05/03/2024 Blood pressure systolic 138 mm Hg 05/03/2024 Weight 160 lbs 05/03/2024 BMI 32.31 kg/m2 05/03/2024 Encounters Encounter Location Date Provider Diagnosis [facility] [place] [address] [place] [address] 01/05/2024 Kaiser Riddle Tinea unguium B35.1 ; [...] nail L60.0 and Plantar fascial fibromatosis M72.[address] [address] 05/03/2024 Kaiser Riddle Tinea unguium B35.1 ; [...] nail L60.0 and Plantar fascial fibromatosis M72.[address] [address] 08/03/2024 Kaiser Riddle Assessments Encounter Date Diagnosis [...] [address] [place] [address] [phone] Vero Ramírez Self - patient is the insured Medical (General) History Medical History History ICD Code Arthritis Back,Hip,and Knee pain Depression Headaches/Migraines Kidney disease Measles Mumps Chicken pox Surgical History Surgery Date(Month/Year) hysterectomy gall bladder Hospitalization History Reason Date(Month/Year) [facility]- Bee sting 04/23/24 [facility]- Rheumatoid arthritis 11/2023
--- OUTSIDE RECORDS SUMMARY | 2025-01-04 11:38 | XMS_ITS | Encounter Summary ---
Author Organization [facility] Address [address] [place] [address] Care Team Providers Care Linoleum Printer Name Role Phone Name, Rafael TAVERA Primary Care Provider Christal Piedra MD Primary Care Provider Africa Ibrahim MD Primary Care Provider Un available Jose Lopez MD Primary Care Provider Unavail able Javier Eller MD Primary Care Provider [phone] Encounter Details Date Type Department Care Team Description 10/25/2010 Eye [employer] Math Tutor Report Medical Records [address] [place] [address] Javi Bronson Social History Tobacco Use Types [...] on filedocumented in this encounter Care Teams Linoleum Printer Relationship Specialty Start Date End Date Name, MD Rafael PCP - General 12/13/09 11/14/15 Christal Celestin MD PCP - General Internal Medicine 11/15/15 11/30/18 Africa Blankenship MD PCP - General Internal Medicine 12/01/18 9 Jose Lopez MD PCP - General Internal Medicine 01/19/19 04/11/20 Javier Eller MD [address] [place] [address] [phone] PCP - General Internal Medicine 04/12/20 documented as of this encounter
--- OUTSIDE RECORDS SUMMARY | 2025-01-04 11:38 | XMS_ITS | Encounter Summary ---
Author Organization [facility] Address [address] [place] [address] Care Team Providers Care Calender Let Off Operator Name Role Phone Christal Celestin MD Primary Care Provider Africa Ibrahim MD Primary Care Provider Un available Jose Lopez MD Primary Care Provider Unavail able Javier Eller MD Primary Care Provider [phone] Encounter Details Date Type Department Care Team Description 06/03/2016 Admission Nurse Coordinator Report Medical Records [address] [place] [address] Raysa Brunson NP Social History Tobacco Use [...] on filedocumented in this encounter Care Teams Calender Let Off Operator Relationship Specialty Start Date End Date Christal Celestin MD PCP - General Internal Medicine 11/15/15 11/30/18 Africa Blankenship MD PCP - General Internal Medicine 12/01/18 9 Jose Lopez MD PCP - General Internal Medicine 01/19/19 04/11/20 Javier Eller MD [address] [place] [address] PCP - General Internal Medicine 04/12/20 documented as of this encounter
--- OUTSIDE RECORDS SUMMARY | 2025-01-04 11:38 | XMS_ITS | Encounter Summary ---
Author Organization [facility] Address [address] [place] [address] Care Team Providers Care Agriculture Technician Name Role Phone Jose Lopez MD Primary Care Provider [facility] Javier Patel MD Primary Care Provider [phone] Reason for Visit * Reason Onset Date Comments refill request 09/28/2019 Encounter Details Date Type Department Care Team Description 09/28/2019 Refill Adult Medicine [address] [phone] Jose Lopez MD refill request Social History [...] current insurance carrier is: Payor: [facility] FFS / Plan: [employer] MEDICARE PREMIUM $10 SAV[place] / Product Type: MEDICARE [id number] documented in this encounter Plan of Treatment Not on file documented as of this encounter Visit Diagnoses Not on filedocumented in this encounter Care Teams Agriculture Technician Relationship Specialty Start Date End Date Jose Lopez MD PCP - General Internal Medicine 01/19/19 04/11/20 Javier Eller MD [address] [place] [address] PCP - General Internal Medicine 04/12/20 documented as of this encounter
--- OUTSIDE RECORDS SUMMARY | 2025-01-04 11:38 | XMS_ITS | Clinical Summary ---
Author Organization [facility] Address [address] [place] [address] Care Team Providers Care Patient Service Coordinator Name Role Phone Javier Eller MD Primary Care Provider [phone] Allergies Active Allergy Reactions Severity Noted Date [...] Active fluticasone 50 MCG/ACT nasal spray 1 [place] by Nasal route daily. 48 g 1 [...] Comments drug abuse Daughter 4 suicide 36 [place] Father 52 CHF Mother 86 Relation Name [...] 08/27/2017, 01/17/2016, Additional history exists Care Teams Patient Service Coordinator Relationship Specialty Start Date End Date Javier Eller MD [address] [place] [address] [phone] PCP - General Internal Medicine 04/12/20
--- OUTSIDE RECORDS SUMMARY | 2025-01-04 11:38 | XMS_ITS | Encounter Summary ---
Author Organization [facility] Address [address] [place] [address] Care Team Providers Care Public Works Commissioner Name Role Phone Name, Rafael TAVERA Primary Care Provider Christal Piedra MD Primary Care Provider Africa Ibrahim MD Primary Care Provider Un available Jose Lopez MD Primary Care Provider Unavail Javier Patel MD Primary Care Provider [phone] Reason for Visit * Reason Onset Date Comments Wrist Pain 05/12/2014 fell, hurt right wrist Encounter Details Date Type Department Care Team Description 05/12/2014 Telephone Adult [address] [phone] Name, MD Rafael Wrist Pain (fell, hurt [...] fell on Friday05/09/14 PCP: Rafael Name Payor: [facility] FFS / Plan: HNE MEDICARE PLUS $15 [place] / Product Type: MEDICARE [id number] documented in this encounter Plan of Treatment Not on file documented as of this encounter Visit Diagnoses Not on filedocumented in this encounter Care Teams Public Works Commissioner Relationship Specialty Start Date End Date Name, MD Rafael PCP - General 12/13/09 11/14/15 Christal Celestin MD PCP - General Internal Medicine 11/15/15 11/30/18 Africa Blankenship MD PCP - General Internal Medicine 12/01/18 9 Jsoe Lopez MD PCP - General Internal Medicine 01/19/19 04/11/20 Javier Eller MD [address] [place] [address] PCP - General Internal Medicine 04/12/20 documented as of this encounter
--- OUTSIDE RECORDS SUMMARY | 2025-01-04 11:38 | XMS_ITS | Encounter Summary ---
Author Organization [facility] Address [address] [place] [address] Care Team Providers Care Segmental Paving Supervisor Name Role Phone Christal Celestin MD Primary Care Provider Africa Ibrahim MD Primary Care Provider Un available Jose Lopez MD Primary Care Provider Unavail Javier Patel MD Primary Care Provider [phone] Reason for Visit * Reason Onset Date Comments Faxed Refill 05/04/2018 Encounter Details Date Type Department Care Team Description 05/04/2018 Refill Adult Medicine [address] [address] Christal Celestin MD Faxed Refill Social History Tobacco Use Types Packs/Day Years [...] Telephone Encounter - Marleni Iniguez M.A. - 05/04/2018 11:21 AM EDT Lab Results Component Value Date NA 140 12/25/2017 K 5.0 12/25/2017 CO2 26.7 12/25/2017 CL 101 12/25/2017 BUN 13 12/25/2017 CREAT 0.9 12/25/2017 GLU 86 12/25/2017 CA 9.4 12/25/2017 GFR > 60 12/25/2017 Last ov 12/25/17 * Telephone Encounter - Elicia Osman - 05/04/2018 11:03 AM EDT Patient would like script to be: E-PRESCRIBED/FAXED TO PHARMACY WHEN WAS THE PATIENT'S LAST APPOINTMENT IN ADULT MEDICINE? 12/25/2017 WHEN WAS THE LAST TIME THE PATIENT SAW THEIR PCP? Same as above Does patient have an upcoming appointment? No-unable to reach left [facility] to call for appointment due to refill request. Appt due June 2018 (THE MEDICATION REQUESTED IS ON THE MED LIST ABOVE) All of the medications requested were on the CURRENT MEDS list Did you check the Pharmacy information above?: YES Patient wants: 30 -day supply Is this a mail order prescription request ? NO If the refill is from a FAXED refill request what is the RX # listed on the fax? [id number] Patients current insurance carrier is: Payor: [facility] FFS / Plan: HNE MEDICARE PREMIUM $15 [place] / Product Type: MEDICARE [id number] documented in this encounter Plan of Treatment Not on file documented as of this encounter Visit Diagnoses Not on filedocumented in this encounter Care Teams Segmental Paving Supervisor Relationship Specialty Start Date End Date Christal Celestin MD PCP - General Internal Medicine 11/15/15 11/30/18 Africa Blankenship MD PCP - General Internal Medicine 12/01/18 9 Jose Lopez MD PCP - General Internal Medicine 01/19/19 04/11/20 Javier Eller MD [address] [place] [id number] PCP - General Internal Medicine 04/12/20 documented as of this encounter
--- OUTSIDE RECORDS SUMMARY | 2025-01-04 11:38 | XMS_ITS | Encounter Summary ---
Author Organization [facility] Address [address] [place] [address] Care Team Providers Care Cigar Bander Name Role Phone Javier Eller MD Primary Care Provider [phone] Encounter Details Date Type Department Care Team Description 12/20/2020 Old Medical Records Medical Records [address] [place] [address] Abstract, Provider Social History Tobacco Use Types [...] on filedocumented in this encounter Care Teams Cigar Bander Relationship Specialty Start Date End Date Javier Eller MD [address] [place] [address] PCP - General Internal Medicine 04/12/20 documented as of this encounter
--- OUTSIDE RECORDS SUMMARY | 2025-01-04 11:38 | XMS_ITS | Encounter Summary ---
Author Organization [facility] Address [address] [place] [address] Care Team Providers Care Dye Expert Name Role Phone Jose Lopez MD Primary Care Provider Unavail able Javier Eller MD Primary Care Provider [phone] Encounter Details Date Type Department Care Team Description 01/19/2019 Telephone Adult Medicine - [place] [address] [place] [address] Bertha Lombardi MD [address] [place] [address] Social History Tobacco Use Types Packs/Day Years [...] on filedocumented in this encounter Care Teams Dye Expert Relationship Specialty Start Date End Date Jose Lopez MD PCP - General Internal Medicine 01/19/19 04/11/20 Javier Eller MD [address] [place] [address] [id number] PCP - General Internal Medicine 04/12/20 documented as of this encounter
--- OUTSIDE RECORDS SUMMARY | 2025-01-04 11:38 | XMS_ITS | Encounter Summary ---
Author Organization [facility] Address [address] [place] [address] Care Team Providers Care Silk Finisher Name Role Phone Christal Celestin MD Primary Care Provider Africa Ibrahim MD Primary Care Provider Un available Jose Lopez MD Primary Care Provider Javier Jurado MD Primary Care Provider [phone] Reason for Visit * Reason Comments E-prescribe Rx Request Encounter Details Date Type Department Care Team Description 11/29/2018 Refill Adult Medicine [address] [address] Vibha Vazquez PA-C [address] [place] [address] E-prescribe Rx Request Social History Tobacco Use [...] N/A Patients current insurance carrier is: Payor: [facility] FFS / Plan: HNE MEDICARE PREMIUM $10 [place] / Product Type: MEDICARE [id number] documented in this encounter Plan of Treatment Not on file documented as of this encounter Visit Diagnoses Not on filedocumented in this encounter Care Teams Silk Finisher Relationship Specialty Start Date End Date Christal Celestin MD PCP - General Internal Medicine 11/15/15 11/30/18 Africa Blankenship MD PCP - General Internal Medicine 12/01/18 9 Jose Lopez MD PCP - General Internal Medicine 01/19/19 04/11/20 Javier Eller MD [address] [place] [id number] PCP - General Internal Medicine 04/12/20 documented as of this encounter
--- OUTSIDE RECORDS SUMMARY | 2025-01-04 11:39 | XMS_ITS ---
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 * Procedure Codes:?03723 Avuls ion Plate, Modifiers: T1 * Follow Up:?3 Months * Images: * The named appointment provid er may or may not be the originator of this progress note, and it is not deemed complete until electronically signed by the appointment provider. Sign off status: Pending * Provider:Alexander Riddle DPM Date:? 024 Generated for Astrid mello/Jason/Willaitting on:?01/04/2025 11:38 AM EDT History and Physical Notes * [...]
--- OUTSIDE RECORDS SUMMARY | 2025-01-04 11:39 | XMS_ITS | Encounter Summary ---
Author Organization [facility] Address [address] [place] [address] Care Team Providers Care Hospital Attendant Name Role Phone Name, Rafael TAVERA Primary Care Provider Christal Piedra MD Primary Care Provider Africa Ibrahim MD Primary Care Provider Un available Jsoe Lopez MD Primary Care Provider Unavail able Javier Eller MD Primary Care Provider [phone] Encounter Details Date Type Department Care Team Description 05/21/2014 Release of Information Medical Records [address] [place] [address] Abstract, Provider Social History Tobacco Use Types [...] on filedocumented in this encounter Care Teams Hospital Attendant Relationship Specialty Start Date End Date Name, MD Rafael PCP - General 12/13/09 11/14/15 Christal Celestin MD PCP - General Internal Medicine 11/15/15 11/30/18 Africa Balnkenship MD PCP - General Internal Medicine 12/01/18 9 Jose Lopez MD PCP - General Internal Medicine 01/19/19 04/11/20 Javier Eller MD [address] [place] [id number] PCP - General Internal Medicine 04/12/20 documented as of this encounter
--- OUTSIDE RECORDS SUMMARY | 2025-01-04 11:39 | XMS_ITS | Encounter Summary ---
Author Organization [facility] Address [address] [place] [address] Care Team Providers Care Billet Heater Operator Name Role Phone Name, Rafael TAVERA Primary Care Provider Christal Piedra MD Primary Care Provider Africa Ibrahim MD Primary Care Provider Un available Jose Lopez MD Primary Care Provider Unavail able Javier Eller MD Primary Care Provider [phone] Encounter Details Date Type Department Care Team Description 09/06/2014 Pathology Technician Report Medical Records [address] [place] [address] Gael Martinez MD Social History Tobacco Use [...] on filedocumented in this encounter Care Teams Billet Heater Operator Relationship Specialty Start Date End Date Name, MD Rafael PCP - General 12/13/09 11/14/15 Christal Celestin MD PCP - General Internal Medicine 11/15/15 11/30/18 Africa Blankenship MD PCP - General Internal Medicine 12/01/18 9 Jose Lopez MD PCP - General Internal Medicine 01/19/19 04/11/20 Javier Eller MD [address] [place] [address] [id number] PCP - General Internal Medicine 04/12/20 documented as of this encounter
--- OUTSIDE RECORDS SUMMARY | 2025-01-04 11:39 | XMS_ITS | Encounter Summary ---
Author Organization [facility] Address [address] [place] [address] Care Team Providers Care Or Rn Name Role Phone Name, Rafael TAVERA Primary Care Provider Christal Piedra MD Primary Care Provider Africa Ibrahim MD Primary Care Provider Un available Jose Lopez MD Primary Care Provider Unavail able Javier Eller MD Primary Care Provider [phone] Reason for Visit * Reason Onset Date Comments Edema 01/11/2015 Encounter Details Date Type Department Care Team Description 01/11/2015 Telephone Adult Medicine [address] [phone] Name, MD Rafael Edema Social History Tobacco [...] fluticasone (FLONASE) 50 MCG/ACT nasal spray 1 [place] by Nasal route daily. 1 Bottle 5 No facility-administered medications prior to visit. * Telephone Encounter - Jasmine Malik - 01/11/2015 8:46 AM EDT Symptoms patient is presenting: ankles retaining fluid, cannot wear regular shoes How long has patient had these symptoms?: since Friday PCP: Rafael Name Payor: [facility] / Plan: HNE MEDICARE PLUS $15 [place] / Product Type: MEDICARE [id number] documented in this encounter Plan of Treatment Not on file documented as of this encounter Visit Diagnoses Not on filedocumented in this encounter Care Teams Or Rn Relationship Specialty Start Date End Date Name, MD Rafael PCP - General 12/13/09 11/14/15 Christal Celestin MD PCP - General Internal Medicine 11/15/15 11/30/18 Africa Blankenship MD PCP - General Internal Medicine 12/01/18 9 Jose Lopez MD PCP - General Internal Medicine 01/19/19 04/11/20 Javier Eller MD [address] [place] [address] PCP - General Internal Medicine 04/12/20 documented as of this encounter
--- OUTSIDE RECORDS SUMMARY | 2025-01-04 11:39 | XMS_ITS ---
Author Organization [facility] Address [address] [place] [address] Care Team Providers Care Mash Grinder Name Role Phone Ismeal Davis MD Primary Care Provider Kaiser Cerna [phone] REASON FOR VISIT cx 08/05 Encounters Encounter Location Date Provider Diagnosis [facility] [address] [place] [address] 08/03/2024 Kaiser Riddle Plan Of Treatment No Information Progress Notes * Vero CONNELLYDOB: [birth year] (83 yo F)Acc No.[id number]:08/03/2024 Patient:?DarrellVero :1940???Age:83 Y???Sex:Female Address:[address], [place], [address] * true * Date:? Generated for Printi ng/Facoreyg/eTransmitting on:?01/04/2025 11:39 AM EDT
--- OUTSIDE RECORDS SUMMARY | 2025-01-04 11:39 | XMS_ITS ---
Author Organization [facility] Address [address] [facility] [place] [address] Care Team Providers Care Pound Attendant Name Role Phone Ismael Davis MD Primary Care Provider Kaiser Cerna Unavailable [phone] Allergies Allergen (clinical drug ingredient) Drug/Non Drug [...] 024 Encounters Encounter Location Date Provider Diagnosis [facility] [place] [address] [place] [address] 05/03/2024 Kaiser Riddle Tinea unguium B35.1 ; [...] * Vero CONNELLYDOB: [birth year] (83 yo F)Acc No.[id number]:05/03/2024 Progress Note Patient:?DarrellAguilaly Provider:?Kaiser Riddle DPM :1940???Age:83 Y???Sex:Female D ate:05/03/2024 Address:[address], [place] , [place] Pcp:Ismael Davis MD Subjective: * Chief Complaints: [...] Exercise. ?Marital status: . ?Occupation: retired- [employer]. * Medications:?TakingAlendrona te Sodium 70 MG Tablet [...] surgical procedures to prevent recurrence.? * Procedure Codes:?20026 Avuls ion Plate, Modifiers: T1 * Preventive [...] DPM Date:? 024 Generated for Astrid mello/Faxing/eTransmitting on:?01/04/2025 11:39 AM EDT History and Physical Notes * [...]
--- OUTSIDE RECORDS SUMMARY | 2025-01-04 11:39 | XMS_ITS | Encounter Summary ---
Author Organization [facility] Address [address] [place] [address] Care Team Providers Care Practice Billing Associate Name Role Phone Name, Rafael TAVERA Primary Care Provider Christal Piedra MD Primary Care Provider Africa Ibrahim MD Primary Care Provider Un available Jose Lopez MD Primary Care Provider Unavail able Javier Eller MD Primary Care Provider [phone] Encounter Details Date Type Department Care Team Description 02/21/2012 Managing Manager Report Medical Records [address] [place] [address] Florian Reina MD, MD Social History Tobacco [...] on filedocumented in this encounter Care Teams Practice Billing Associate Relationship Specialty Start Date End Date Name, MD Rafael PCP - General 12/13/09 11/14/15 Christal Celestin MD PCP - General Internal Medicine 11/15/15 11/30/18 Africa Blankenship MD PCP - General Internal Medicine 12/01/18 9 Jose Lopez MD PCP - General Internal Medicine 01/19/19 04/11/20 Javier Eller MD [address] [place] [address] [id number] PCP - General Internal Medicine 04/12/20 documented as of this encounter
== END 2025-01-04 09:59 | disposition home or self-care (01) ==
LOC: HO.XRAY 09:58
PROVIDERS: Visit Provider Internal Medicine
DX: M19.011 Primary osteoarthritis, right shoulder (principal); W19.XXXA Unspecified fall, initial encounter
CPT/HCPCS: 73030

== ENCOUNTER → 2025-01-04 10:00 | Outpatient (BNV) | payer MEDICARE, SELFPAY | PROVIDERS: Visit Provider Radiology Diagnostic Radiology | DX: M25.511 Pain in right shoulder (principal) | CPT/HCPCS: 73030 ==

== ENCOUNTER 2025-02-07 15:37 | Inpatient (IN) | payer MEDICARE, SELFPAY ==
--- NOTE | ~2025-02-07 | FL_ITS ---
EXAMINATION: FL GUIDANCE ONLY HISTORY: right Femoral IMN COMPARISON: Correlation is made with plain films of the right hip dated 01/30/2025. TECHNIQUE: Fluoroscopy time: 1.1 minutes. Cumulative Dose: 25.9 mGy. DAP: 0.434 mGym2 Images: 5. FINDINGS: Images demonstrate placement of a compression screw and intramedullary mark maintaining the previously noted intertrochanteric fracture in anatomic alignment. FL/FL guidance in OR IMPRESSION: Fluoroscopy during procedure. Please see procedure report for additional information. Electronically signed by: Gary Milan MD 02/09/2025 09:56 AM EDT
--- NOTE | ~2025-02-07 | CT_ITS ---
CLINICAL HISTORY: Fall, head strike, R O, bleed, fracture CT Head Without Contrast: Comparison: 10/09/2024 Findings: Cortical sulci and cisterns are prominent. Basal ganglia are unremarkable No shift in midline structures No intraparenchymal bleeding or abnormal extra axial blood fluid collections Normal pituitary size Clear paranasal sinuses Unremarkable orbital structures No depressed fractures Impression: Chronic involutional volume loss, no signs of acute trauma. This document has been electronically signed by: Florian Lerma MD on 02/07/2025 18:01:58
--- NOTE | ~2025-02-07 | XR_ITS ---
CLINICAL HISTORY: Fall, rule out fracture, pneumothorax 1 view chest x-ray. Comparison: 12/09/2022 Findings: Heart size normal. Pulmonary vasculature is within limits of normal. Mediastinal contours are normal No pneumothorax. No acute fracture. Impression: The lungs are clear. This document has been electronically signed by: Florian Lerma MD on 02/07/2025 17:14:10
--- NOTE | ~2025-02-07 | XR_ITS ---
CLINICAL HISTORY: fall, deformity 2 views right hip Comparison: CT 11/19/2023 Findings: There is a comminuted intertrochanteric and subtrochanteric fracture of the proximal right femur. The left hip is incidentally normal. The pubic and ischial bones and iliac bones are unremarkable. Bowel-gas pattern in the lower abdomen is incidentally normal. No radiopaque foreign body. Impression: Comminuted intertrochanteric and subtrochanteric fracture of the proximal right femur with displaced fragments This document has been electronically signed by: Florian Leram MD on 02/07/2025 17:32:39
--- NOTE | ~2025-02-07 | CT_ITS ---
CLINICAL HISTORY: Fall, head strike, neck pain, rule out fracture CT cervical spine without contrast Comparison: 11/19/2023 Findings: Craniocervical junction is unremarkable. There is 3.5 mm anterolisthesis of C3 on C4. There is moderate degenerative narrowing of C5-6 and C6-7 disc spaces. Facet joints are in good alignment. Normal limited view of the intracranial contents. Soft tissues of the neck are normal. There is nonspecific pleural thickening and capping the apex of the left upper lobe with calcification, most likely postinflammatory Normal vertebral body alignment. No fractures or dislocations. There is uncovertebral joint and facet hypertrophy without foraminal stenosis. Impression: No signs of acute skeletal trauma. Mild anterolisthesis of C3 on C4 may be chronic. No associated soft tissue swelling or epidural hematoma. If symptoms persist, MRI may be useful to evaluate for ligamentous injury. This document has been electronically signed by: Florian Lerma MD on 02/07/2025 17:48:33
[2025-02-07 15:46] VITALS: BP 159/80; PULSE 76; O2SAT 100
[2025-02-07 15:59] VITALS: BP 176/63; PULSE 77; RESP 20; TEMP 36.4; O2SAT 100; BMI 22.0
--- NOTE | 2025-02-07 16:18 | ECG_ITS ---
Test Reason : cp Blood Pressure : */* mmHG Vent. Rate : 71 BPM Atrial Rate : 71 BPM P-R Int : 156 ms QRS Dur : 78 ms QT Int : 418 ms P-R-T Axes : 86 46 70 degrees QTcB Int : 454 ms Sinus rhythm with Premature supraventricular complexes Otherwise normal ECG When compared with ECG of 19-Nov-2023 12:40, Premature supraventricular complexes are now Present Referred By: Jermaine Price Electronically Signed By: Ramon Quinteros
--- NOTE | 2025-02-07 16:20 | ED.FALL ---
HPI - Fall General Chief Complaint: Fall Stated Complaint: fall, headstrike, hip pain wisam, fentanyl Time Seen by Provider: 02/07/25 16:08 Source: patient and family (, Al) Mode of arrival: EMS Limitations: no limitations History of Present Illness ED Provider: Dr. Jermaine Price HPI Narrative: 84-year-old female with a past medical history of hypokalemia, syncope, HLD, HTN, polymyalgia rheumatica, osteoarthritis, and hypothyroidism who presents emergency department for evaluation of trip and fall with head strike, no loss of consciousness, right hip pain. According to the patient's , the patient was had difficulty with her balance recently and difficulty walking. Patient states that she tripped over the door [facility] causing her to fall forward and striking her head and right hip. Patient was currently complaining of the severe pain in her right hip which is worse with minimal movement. She denied headache, nausea,, neck pain, vomiting. She denied being ill in any way over the past several days, she denied fever, chills, cough, rhinorrhea, chest pain, shortness of breath, dark stools or bloody stools, frequency, urgency or dysuria Related Data Home Medications ?Medication ?Instructions ?Recorded ?Confirmed fexofenadine 180 mg tablet 180 mg PO DAILY 04/13/21 12/24/24 fluticasone propionate 50 1 spray intranasal DAILY 04/13/21 12/24/24 mcg/actuation nasal spray,suspension (Allergy Relief (fluticasone)) omeprazole 20 mg capsule,delayed 20 mg PO DAILY@0630 04/13/21 12/24/24 release simvastatin 20 mg tablet 20 mg PO DAILY 04/13/21 12/24/24 folic acid 1 mg tablet 1 mg PO DAILY 11/28/22 12/24/24 acetaminophen 650 mg 1 tab PO Q8H PRN pain 12/07/22 12/24/24 tablet,extended release (Mapap Arthritis Pain) cholecalciferol (vitamin D3) 25 25 mcg PO DAILY 12/07/22 12/24/24 mcg (1,000 unit) tablet (Vitamin D3) magnesium oxide 400 mg (241.3 mg 400 mg PO DAILY 12/07/22 12/24/24 magnesium) tablet levothyroxine 25 mcg tablet 25 mcg PO DAILY 03/31/23 12/24/24 potassium chloride 10 mEq 10 meq PO DAILY 03/31/23 12/24/24 tablet,extended release tramadol 50 mg tablet 50 mg PO DAILY PRN 11/08/24 12/24/24 Previous Rx's ?Medication ?Instructions ?Recorded albuterol sulfate 90 mcg/actuation 2 puff inhalation Q6H PRN 12/11/22 aerosol inhaler (ProAir HFA) Shortness Of Breath Or Wheezing #8.5 grams metoprolol tartrate 25 mg tablet 12.5 mg (1/2 x 25 mg) PO BID #30 12/11/22 tabs polyvinyl alcohol 1.4 % eye drops 2 drp ophthalmic (eye) Q4H PRN dry 12/11/22 (Artificial Tears (polyvinyl eye #15 mL alcohol)) cefpodoxime 200 mg tablet 200 mg PO Q12H #20 tabs 07/11/24 lidocaine 5 % topical patch 1 patch topical DAILY #15 ea 07/11/24 TLSO #1 ea 10/18/24 tramadol 50 mg tablet 25 mg (1/2 x 50 mg) PO BID #30 tabs 12/24/24 sertraline 25 mg tablet 25 mg PO DAILY #90 tabs 01/11/25 hydrochlorothiazide 25 mg tablet 25 mg PO DAILY #90 tabs 01/26/25 Allergies Allergy/AdvReac Type Severity Reaction Status Date / Time naproxen [NAPROXEN] Allergy Intermediate BLISTERS Verified 02/07/25 16:02 IN MOUTH Sulfa (Sulfonamide Allergy Intermediate BLISTERS Verified 02/07/25 16:02 Antibiotics) ON TONGUE [SULFA (SULFONAMIDE ANTIBIOTICS)] Review of Systems Review of Systems: Yes all other systems are reviewed and are negative [facility] Past Medical History Medical History Dyspnea on exertion Bronchitis Hyperlipidemia Hypertension Polymyalgia rheumatica Surgical History Hx of cholecystectomy Hx of hysterectomy Family History Family History Mother CHF (congestive heart failure) Social History Social History Household Members: Spouse Housing: House Do you presently have visiting nurse or other home services: No Alcohol intake: current Alcohol intake frequency: holidays/special occasions only Patient Tobacco Use Status: Former Tobacco user Tobacco use type: Cigarette Cigarettes Per Day: 15 Years Smoked: 4 e-Cigarette/Vaping Use: Never Used Second Hand Smoke Exposure: No Substance Use Type: Marijuana Advance Directives: Yes Advance Directives on File: Yes Advance Directives Date on File: 11/24/23 service: No Current occupational status: retired Physical Exam Vital Signs: Vital Signs: Last Vital Signs Temp 97.6 F 02/07/25 15:59 Pulse 72 02/07/25 17:09 Resp 22 H 02/07/25 17:09 BP 180/77 H 02/07/25 17:09 Pulse Ox 100 02/07/25 17:09 O2 Del Method Room Air 02/07/25 17:09 BMI result Body Mass Index 22.0 Vital signs revealed an elevated blood pressure of 176/63 otherwise unremarkable Exam: General: Awake, alert, in monitor status secondary to her right hip pain, answers all questions appropriately Head: Normocephalic, atraumatic EENT: PERRL, Lids normal, sclera normal, conjunctiva normal, nose normal , ears normal, throat without erythema or exudates Neck: Supple, no adenopathy Lung: breath sounds symmetric, no wheezing, rales or rhonchi Chest: symmetric movement, nontender Heart: regular rate and rhythm, normal S1, S2 no murmurs or rubs Abdomen: soft, non-tender, nondistended, normal bowel sounds Back: no vertebral tenderness, no CVAT Extremities: The right leg is shorter than the left, patient has tenderness palpation over the right hip joint and pain with minimal movement of her right hip Neuro: Awake, alert, oriented, normal speech, cranial nerves intact, moves all extremities symmetrically Psych: Pleasant, cooperative Medications Administered Discontinued Medications Generic Name Dose Route Start Last Admin Trade Name Freq PRN Reason Stop Dose Admin Hydromorphone HCl 1 mg 02/07/25 16:57 02/07/25 17:09 Hydromorphone Hcl 1 Mg/Ml Syringe IVPUSH 02/07/25 16:58 1 mg ONCE STA Administration Protocol Morphine Sulfate 4 mg 02/07/25 16:18 02/07/25 16:26 Morphine Sulfate 4 Mg/Ml Cartridge IVPUSH 02/07/25 16:19 4 mg ONCE STA Administration Protocol Ondansetron HCl 4 mg 02/07/25 16:18 02/07/25 16:26 Ondansetron Hcl 4 Mg/2 Ml Vial IVPUSH 02/07/25 16:19 4 mg ONCE ONE Administration Medical Decision Making Medical Decision Making [facility] Narrative: 84-year-old female with a past medical history of hypokalemia, syncope, HLD, HTN, polymyalgia rheumatica, osteoarthritis, and hypothyroidism who presents emergency department for evaluation of trip and fall with head strike, no loss of consciousness, right hip pain. [facility] forward and hit her head, she had no loss of consciousness, she did strike her right hip. Patient was complaining of severe right hip pain otherwise has no other complaints. She states she has been having trouble walking recently and having difficulty with the balance otherwise was not ill in any other way. Vital signs did reveal an elevated blood pressure otherwise unremarkable. Examination did reveal significant tenderness palpation of the right hip joint and significant pain with minimal movement of her right hip. Differential diagnosis: ?Includes but is not limited to closed head injury, intracranial hemorrhage, skull fracture, neck fracture, neck sprain, right hip contusion, right hip fracture, anemia, electrolyte abnormalities Course: 16:26 Patient's physical examination is concerning for possible right hip fracture. I ordered a laboratory evaluation including a type and screen, right hip and pelvis x-ray, CT scan of the head and cervical spine, chest x-ray one view. Patient was treated with morphine 4 mg IV and Zofran 4 mg IV. 17:34 My interpretation patient's laboratory evaluation is as follows: CBC was normal. Coags were normal. Potassium was low 3.2. BUN was elevated at 17 with a normal creatinine of 0.81. LFTs were normal. X-ray of the patient's right hip revealed a comminuted intertrochanteric and subtrochanteric fracture of the proximal right femur with displaced fragments. The patient got only minimal relief of her pain with morphine 4 mg IV. She was given a dose of Dilaudid [address] scan of the head and cervical spine were negative. Chest x-ray was negative. Patient was treated with morphine 4 mg IV with only minimal improvement of her pain. She received Dilaudid 1 mg IV with some improvement, she did have a slightly low O2 saturation he was placed on oxygen 2 L via nasal cannula. 18:37 I did discuss the patient was presentation over tiger text with the covering orthopedic surgeon, Dr. Escalera. She recommended NPO after midnight and if medically cleared surgery , surgery within the next 1-2 days. 18:41 I discuss the patient's presentation over tiger text with the covering hospitalist, Dr. Ko. She will be admitted to the hospitalist service for further treatment. The patient did require a another dose of Dilaudid 0.5 mg IV for her pain. Admission/Observation Consideration of admission/observation: Escalation of care including admission/observation considered (Yes) Consult Healthcare Provider Management of the patient was discussed with: Hospitalist and Administrative Court Justice (Orthopedic surgeon, Dr. Escalera) Lab Data MDM Lab Attestation statement: I reviewed the patient's lab results. 02/07/25 17:08 02/07/25 17:08 Labs: Lab Results 02/07/25 Range/Units 17:08 WBC 10.5 (4.8-10.8) X10*3/uL RBC 4.51 (4.20-5.50) X10*6/uL Hgb 13.9 (12.0-16.0) g/dl Hct 40.5 (37.0-47.0) % MCV 89.8 (80.0-98.0) fL MCH 30.8 (27.0-33.0) pg MCHC 34.3 (31.0-35.0) g/dl RDW 12.4 (11.0-16.0) % Plt Count 247 (160-400) X10*3/uL MPV 10.3 (9.4-12.3) fL Immature Gran % (Auto) 0.5 H (0.0-0.4) % Neut % (Auto) 78.5 H (45-73) % Lymph % (Auto) 13.7 L (20-40) % [place] % (Auto) 6.2 (2-11) % Eos % (Auto) 0.8 (0-4) % Baso % (Auto) 0.3 (0-2) % Lymph # (Auto) 1.4 (1.2-4.9) X10*3/uL [place] # (Auto) 0.7 (0.1-1.2) X10*3/uL Eos # (Auto) 0.1 (0.0-0.4) X10*3/uL Baso # (Auto) 0.0 (0.0-0.2) X10*3/uL Abs Immat Gran (auto) 0.05 H (0.00-0.03) X10*3/uL Absolute Neuts (auto) 8.3 (2.0-8.3) x10*3/uL Absolute Nucleated RBC 0.000 (0.0-0.012) X10*3/uL Nucleated RBC % (auto) 0.0 (0.0-0.2) /100WBC PT 11.8 (10.9-12.4) SEC INR 1.0 (0.9-1.1) APTT 29.9 (26.0-36.8) SEC Sodium 141 (135-145) mmol/L Potassium 3.2 L (3.3-5.1) mmol/L Chloride 101 (96-108) mmol/L Carbon Dioxide 23 (22-29) mmol/L Anion Gap 20 (12-20) BUN 17 H (9-16) mg/dL Creatinine 0.81 (0.5-1.4) mg/dL Estim Creat Clear Calc 50.1 Estimated GFR > 60 Random Glucose 98 (60-115) mg/dL Calcium 9.7 (8.4-10.2) mg/dL Magnesium 1.6 (1.6-2.6) mg/dL Total Bilirubin 0.4 (0.0-1.0) mg/dL AST 21 (5-31) U/L ALT < 6 (0-31) U/L Alkaline Phosphatase 60 (39-117) U/L Troponin I High Sens 4.7 D (<3.5-17.0) ng/L Total Protein 6.6 (6.5-8.0) g/dL Albumin 3.9 (3.5-5.0) g/dL Lipase 17 (8-78) U/L Influenza Type A (PCR) NEGATIVE (Negative) Influenza Type B (PCR) NEGATIVE (Negative) RSV RNA Qual (PCR) NEGATIVE (Negative) SARS-CoV-2 RNA (RT-PCR) NEGATIVE (Negative) Blood Type A Positive Antibody Screen NEGATIVE Independent Interpretation I performed an independent interpretation of an: EKG and Plain X-Ray Interpretation: My interpretation patient's 12 EKG done on 02/07/2025 at 16:27 hours is as follows: Normal sinus rhythm with a rate of 71, normal OR interval, QRS duration QTC interval, no ST segment elevation, no ST segment depression, no PVCs, occasional PAC, except for the PACs this is a normal EKG. My independent interpretation of the patient's one-view chest x-ray is as follows: No acute disease Radiology Impression Discussion of test interpretation with radiology: I have reviewed the radiologist's reading. Radiologist Impression: 2 views right hip Comparison: CT 11/19/2023 Findings: There is a comminuted intertrochanteric and subtrochanteric fracture of the proximal right femur. The left hip is incidentally normal. The pubic and ischial bones and iliac bones are unremarkable. Bowel-gas pattern in the lower abdomen is incidentally normal. No radiopaque foreign body. Impression: Comminuted intertrochanteric and subtrochanteric fracture of the proximal right femur with displaced fragments This document has been electronically signed by: Florian Lerma MD on 02/07/2025 17:32:39 1 view chest x-ray. Comparison: 12/09/2022 Findings: Heart size normal. Pulmonary vasculature is within limits of normal. Mediastinal contours are normal No pneumothorax. No acute fracture. Impression: The lungs are clear. This document has been electronically signed by: Florian Lerma MD on 02/07/2025 17:14:10 CT cervical spine without contrast Impression: No signs of acute skeletal trauma. Mild anterolisthesis of C3 on C4 may be chronic. No associated soft tissue swelling or epidural hematoma. If symptoms persist, MRI may be useful to evaluate for ligamentous injury. This document has been electronically signed by: Florian Lerma MD on 02/07/2025 17:48:33 Independent Historian Clinical information obtained from an independent historian. History obtained from or confirmed by: Spouse External Record Review External record reviewed: Inpatient record Chronic Conditions Patient?s care impacted by: Hypertension Critical Care Time Critical Care Time Critical Care Time: Yes Total Critical Care Time: 35 Attestation: Critical Care: The patient was critically ill with a high probability of imminent or life threatening deterioration. I spent greater than 30 minutes of discontinuous time evaluating the patient,delivering critical care at the bedside, discussing and evaluating pertinent data with consultants. Critical care time does not include time spent performing separately billable procedures or teaching. Total time spent performing critical care was 35 minutes. Discharge Plan Discharge Print Language: Algerian
[2025-02-07 16:26] VITALS: RESP 22
[2025-02-07] MEDS: ondansetron HCL 4 MG/2 ML VIAL IVPUSH (16:26)
[2025-02-07] MEDS: Morphine Sulfate 4 MG/ML CARTRIDGE IVPUSH (16:26)
--- NOTE | 2025-02-07 16:37 | PC.NURSE ---
Pt coming from home after having a fall in her house, she tripped in the doorway. Pt has noted right hip shortening, pulses found via doppler and marked. Pt able to slightly wiggle toes. Pt is very tearful and in a lot of pain, MD notified and at bedside, pt received fent from EMS, morphine given by this RN, per MD pt can receive doses up to every 20 minutes, for another 3 doses. Pt at bedside, collar removed, pt currently just brought to CT/Xray at this time. No bruising or open areas noted. Pt does have fragile skin noted. pt has #20 in right hand via EMS, flushing well at this time. Lab work to be obtained upon arrival back to room from scanning
--- NOTE | 2025-02-07 16:56 | PC.NURSE ---
pt requests pain medication, notified
[2025-02-07 17:09] VITALS: BP 180/77; PULSE 72; RESP 22; O2SAT 100
[2025-02-07] MEDS: HYDROmorphone HCl 1 MG/ML SYRINGE IVPUSH (17:09)
[2025-02-07 17:13] LABS: MANUAL DIFF FLAG NO
[2025-02-07 17:16] LABS: Basophils Percent Auto 0.3 % (0-2); Eosinophils Absolute Auto 0.1 X10*3/uL (0.0-0.4); Eosinophils Percent Auto 0.8 % (0-4); Hematocrit 40.5 % (37.0-47.0); Hemoglobin 13.9 g/dl (12.0-16.0); Imm Gran Abs Auto 0.05 X10*3/uL (0.00-0.03); Imm Gran Pct Auto 0.5 % (0.0-0.4); Lymphocytes Absolute Auto 1.4 X10*3/uL (1.2-4.9); Lymphocytes Percent Auto 13.7 % (20-40); Mean Corpuscular HGB Conc 34.3 g/dl (31.0-35.0); Mean Corpuscular Hemoglobin 30.8 pg (27.0-33.0); Mean Corpuscular Volume 89.8 fL (80.0-98.0); Mean Platelet Volume 10.3 fL (9.4-12.3); Monocytes Absolute Auto 0.7 X10*3/uL (0.1-1.2); Monocytes Percent Auto 6.2 % (2-11); Neutrophils Absolute Auto 8.3 x10*3/uL (2.0-8.3); Neutrophils Percent Auto 78.5 % (45-73); Platelet Count 247 X10*3/uL (160-400); Red Blood Count 4.51 X10*6/uL (4.20-5.50); Red Cell Distribution Width 12.4 % (11.0-16.0); White Blood Count 10.5 X10*3/uL (4.8-10.8)
[2025-02-07 17:21] LABS: Prothrombin Time 11.8 SEC (10.9-12.4)
[2025-02-07 17:24] LABS: Partial Thromboplastin Time 29.9 SEC (26.0-36.8)
[2025-02-07 17:37] LABS: Troponin-I High Sensitivity 4.7 ng/L (<3.5-17.0)
[2025-02-07 17:44] LABS: Alanine Aminotransferase < 6 U/L (0-31); Albumin Level 3.9 g/dL (3.5-5.0); Anion Gap 20 (12-20); Aspartate Amino Transferase 21 U/L (5-31); Bilirubin Total 0.4 mg/dL (0.0-1.0); Blood Urea Nitrogen 17 mg/dL (9-16); Calcium 9.7 mg/dL (8.4-10.2); Carbon Dioxide 23 mmol/L (22-29); Chloride 101 mmol/L (96-108); Creatinine Clr Calc Pharmacy 50.1; Estimated Glomerular Filt Rate > 60; Glucose Random 98 mg/dL (60-115); Lipase 17 U/L (8-78); Magnesium 1.6 mg/dL (1.6-2.6); Potassium 3.2 mmol/L (3.3-5.1); Sodium 141 mmol/L (135-145); Total Protein 6.6 g/dL (6.5-8.0)
--- NOTE | 2025-02-07 17:49 | PC.NURSE ---
pt SpO2 dropped to 78% s/p dilaudid admin-- 2L O2 via NC
[2025-02-07 17:55] LABS: Influenza A PCR NEGATIVE (Negative); Influenza B PCR NEGATIVE (Negative); Resp Syncy Virus RNA Qual PCR NEGATIVE (Negative); SARS COV2 PCR INHOUSE NEGATIVE (Negative)
[2025-02-07 18:13] LABS: Alkaline Phosphatase 60 U/L (39-117)
[2025-02-07] MEDS: HYDROmorphone HCl 0.5 MG/0.5 ML SYRINGE IVPUSH (18:55)
--- OUTSIDE RECORDS SUMMARY | 2025-02-07 18:55 | XMS_ITS | Encounter Summary ---
Author Organization [facility] Address [address] [place] [address] Care Team Providers Care Dental Hygienist Name Role Phone Christal Celestin MD Primary Care Provider Africa Ibrahim MD Primary Care Provider Un available Jose Lopez MD Primary Care Provider Javier Jurado MD Primary Care Provider [phone] Reason for Referral * EXTERNAL (Urgent) - Authorized/Booked Specialty Diagnoses / Procedures Referred By Mami stephenson Referred To Contact Physical Therapy Diagnoses Primary localized osteoarthrosis of lower leg, unspecified laterality Unsteady gait Procedures REFERRAL TO PHYSICAL THERAPY Randolph Layne MD [address] [place] [id number] External Phys Thrpy Referral ID Status Reason Start Date Expiration Date V isits Requested Visits Authorized SEE NOTE Authorized/B ooked 06/26/2018 09/25/2018 1 1 Reason for Visit * Reason Onset Date Comments Chargeback Analyst Feedback 06/26/2018 [facility] Encounter Details Date Type Department Care Team Description 06/26/2018 Telephone Rheumatology - [address] [id number] Randolph Layne MD Chargeback Analyst Feedback ([facility] PT) Social History Tobacco [...] gait documented in this encounter Care Teams Dental Hygienist Relationship Specialty Start Date End Date Christal Celestin MD PCP - General Internal Medicine 11/15/15 11/30/18 Africa Blankenship MD PCP - General Internal Medicine 12/01/18 9 Jose Lopez MD PCP - General Internal Medicine 01/19/19 04/11/20 Javier Eller MD [address] [place] [id number] PCP - General Internal Medicine 04/12/20 documented as of this encounter
--- OUTSIDE RECORDS SUMMARY | 2025-02-07 18:55 | XMS_ITS | Encounter Summary ---
Author Organization [facility] Address [address] [place] [address] Care Team Providers Care Long Chain Quiller Tender Name Role Phone Jose Lopez MD Primary Care Provider Unavail able Javier Eller MD Primary Care Provider [phone] Encounter Details Date Type Department Care Team Description 01/19/2019 Telephone Adult Medicine - [place] [address] [place] [address] Bertha Lombardi MD [address] [place] [address] Social History Tobacco Use Types Packs/Day Years [...] on filedocumented in this encounter Care Teams Long Chain Quiller Tender Relationship Specialty Start Date End Date Jose Lopez MD PCP - General Internal Medicine 01/19/19 04/11/20 Javier Eller MD [address] [place] [address] [id number] PCP - General Internal Medicine 04/12/20 documented as of this encounter
--- OUTSIDE RECORDS SUMMARY | 2025-02-07 18:55 | XMS_ITS | Encounter Summary ---
Author Organization [facility] Address [address] [place] [address] Care Team Providers Care Livery Car Driver Name Role Phone Christal Celestin MD Primary Care Provider Africa Ibrahim MD Primary Care Provider Un available Jose Loepz MD Primary Care Provider Unavail able Javier Eller MD Primary Care Provider [phone] Encounter Details Date Type Department Care Team Description 01/18/2016 Business Doc Medical Records [address] [place] [id number] Abstract, Provider Social History Tobacco Use Types [...] on filedocumented in this encounter Care Teams Livery Car Driver Relationship Specialty Start Date End Date Christal Celestin MD PCP - General Internal Medicine 11/15/15 11/30/18 Africa Blankenship MD PCP - General Internal Medicine 12/01/18 9 Jose Lopez MD PCP - General Internal Medicine 01/19/19 04/11/20 Javier Eller MD [address] [place] [id number] PCP - General Internal Medicine 04/12/20 documented as of this encounter
--- OUTSIDE RECORDS SUMMARY | 2025-02-07 18:55 | XMS_ITS | Encounter Summary ---
Author Organization [facility] Address [address] [place] [address] Care Team Providers Care Meat Passer Name Role Phone Name, Rafael TAVERA Primary Care Provider Christal Piedra MD Primary Care Provider Africa Ibrahim MD Primary Care Provider Un available Jose Lopez MD Primary Care Provider Unavail able Javier Eller MD Primary Care Provider [phone] Encounter Details Date Type Department Care Team Description 08/27/2012 Dry Wall Installations Mechanic Report Medical Records [address] [place] [id number] Florian Reina MD, MD Social History Tobacco [...] on filedocumented in this encounter Care Teams Meat Passer Relationship Specialty Start Date End Date Name, MD Rafael PCP - General 12/13/09 11/14/15 Christal Celestin MD PCP - General Internal Medicine 11/15/15 11/30/18 Africa Blankenship MD PCP - General Internal Medicine 12/01/18 9 Jose Lopez MD PCP - General Internal Medicine 01/19/19 04/11/20 Javier Eller MD [address] [place] [address] [id number] PCP - General Internal Medicine 04/12/20 documented as of this encounter
--- OUTSIDE RECORDS SUMMARY | 2025-02-07 18:55 | XMS_ITS | Encounter Summary ---
Author Organization [facility] Address [address] [place] [address] Care Team Providers Care Cementer Machine Joiner Name Role Phone Name, Rafael TAVERA Primary Care Provider Christal Piedra MD Primary Care Provider Africa Ibrahim MD Primary Care Provider Un available Jose Lopez MD Primary Care Provider Unavail able Javier Eller MD Primary Care Provider [phone] Encounter Details Date Type Department Care Team Description 09/06/2014 Lubrication Technician Report Medical Records [address] [place] [id number] Gael Martinez MD Social History Tobacco Use [...] on filedocumented in this encounter Care Teams Cementer Machine Joiner Relationship Specialty Start Date End Date Name, MD Rafael PCP - General 12/13/09 11/14/15 Christal Celestin MD PCP - General Internal Medicine 11/15/15 11/30/18 Africa Blaknenship MD PCP - General Internal Medicine 12/01/18 9 Jose Lopez MD PCP - General Internal Medicine 01/19/19 04/11/20 Javier Eller MD [address] [place] [address] [id number] PCP - General Internal Medicine 04/12/20 documented as of this encounter
--- OUTSIDE RECORDS SUMMARY | 2025-02-07 18:55 | XMS_ITS | Encounter Summary ---
Author Organization [facility] Address [address] [place] [address] Care Team Providers Care Broke Beater Name Role Phone Christal Celestin MD Primary Care Provider Africa Ibrahim MD Primary Care Provider Un available Jose Lopez MD Primary Care Provider Unavail able Javier Eller MD Primary Care Provider [phone] Encounter Details Date Type Department Care Team Description 07/01/2016 Novelty Maker Report Medical Records [address] [place] [id number] Florian Reina MD, MD Social History Tobacco [...] on filedocumented in this encounter Care Teams Broke Beater Relationship Specialty Start Date End Date Christal Celestin MD PCP - General Internal Medicine 11/15/15 11/30/18 Africa Blankenship MD PCP - General Internal Medicine 12/01/18 9 Jose Lopez MD PCP - General Internal Medicine 01/19/19 04/11/20 Javier Eller MD [address] [place] [id number] PCP - General Internal Medicine 04/12/20 documented as of this encounter
--- OUTSIDE RECORDS SUMMARY | 2025-02-07 18:55 | XMS_ITS ---
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 * Procedure Codes:?85370 Avuls ion Plate, Modifiers: T1 * Follow Up:?3 Months * Images: * The named appointment provid er may or may not be the originator of this progress note, and it is not deemed complete until electronically signed by the appointment provider. Sign off status: Pending * Provider:Alexander Riddle DPM Date:? 024 Generated for Astrid mello/Jason/Rhett on:?02/07/2025 06:55 PM EDT History and Physical Notes * [...]
--- OUTSIDE RECORDS SUMMARY | 2025-02-07 18:55 | XMS_ITS | Clinical Summary ---
Author Organization [facility] Address [address] [place] [address] Care Team Providers Care Byproducts Maker Name Role Phone Javier Eller MD Primary Care Provider Allergies Active Allergy Reactions Severity Noted Date [...] Active fluticasone 50 MCG/ACT nasal spray 1 Lingle by Nasal route daily. 48 g 1 [...] Comments drug abuse Daughter 4 suicide 36 [place] Father 52 CHF Mother 86 Relation Name [...] (Refused), 02/24/2015 (Refused), 01/18/2013, Additional history exists BMI CHECK/ADVISE 10/13/2024 06/27/2020, 01/2020, 10/12/2019, Additional history exists INFLUENZA (Season Ended) 2025 020, 06/26/2019, 08/20/2018, Additional history exists CHOLESTEROL SCREENING 06/27/2025 06/27/2020 , 11/12/2019, 10/21/2019, Additional history exists DTAP/TDAP/TD (2 - Td or Tdap) 04/03/2026 04/03/2016, 01/28/2011, 04/12/1995 PNEUMOCOCCAL VACCINE Completed 11/04/2018, 08/27/2017, 01/17/2016, Additional history exists Care Teams Byproducts Maker Relationship Specialty Start Date End Date Javier Eller MD [address] [place] [address] [id number] PCP - General Internal Medicine 04/12/20
--- OUTSIDE RECORDS SUMMARY | 2025-02-07 18:55 | XMS_ITS | Encounter Summary ---
Author Organization [facility] Address [address] [place] [address] Care Team Providers Care Handkerchief Maker Name Role Phone Name, Rafael TAVERA Primary Care Provider Christal Piedra MD Primary Care Provider Africa Ibrahim MD Primary Care Provider Un available Jose Lopez MD Primary Care Provider Unavail able Javier Eller MD Primary Care Provider [phone] Encounter Details Date Type Department Care Team Description 05/01/2012 Hospital Medical Records [address] [place] [address] Florian Reina MD, MD Social History Tobacco [...] on filedocumented in this encounter Care Teams Handkerchief Maker Relationship Specialty Start Date End Date Name, MD Rafael PCP - General 12/13/09 11/14/15 Christal Celesitn MD PCP - General Internal Medicine 11/15/15 11/30/18 Africa Blankenship MD PCP - General Internal Medicine 12/01/18 9 Jose Lopez MD PCP - General Internal Medicine 01/19/19 04/11/20 Javier Eller MD [address] [place] [address] PCP - General Internal Medicine 04/12/20 documented as of this encounter
--- OUTSIDE RECORDS SUMMARY | 2025-02-07 18:55 | XMS_ITS | Encounter Summary ---
Author Organization [facility] Address [address] [place] [address] Care Team Providers Care Premium Card Cancellation Clerk Name Role Phone Name, Rafael TAVERA Primary Care Provider Christal Piedra MD Primary Care Provider Africa Ibrahim MD Primary Care Provider Un available Jose Lopez MD Primary Care Provider Unavail able Javier Eller MD Primary Care Provider [phone] Encounter Details Date Type Department Care Team Description 02/17/2012 Microwave Supervisor Report Medical Records [address] [place] [address] Raysa Brunson, JOSH Social History Tobacco Use [...] on filedocumented in this encounter Care Teams Premium Card Cancellation Clerk Relationship Specialty Start Date End Date Name, MD Rafael PCP - General 12/13/09 11/14/15 Christal Celestin MD PCP - General Internal Medicine 11/15/15 11/30/18 Africa Blankenship MD PCP - General Internal Medicine 12/01/18 9 Jose Lopez MD PCP - General Internal Medicine 01/19/19 04/11/20 Javier Eller MD [address] [place] [address] PCP - General Internal Medicine 04/12/20 documented as of this encounter
--- OUTSIDE RECORDS SUMMARY | 2025-02-07 18:55 | XMS_ITS | Encounter Summary ---
Author Organization [facility] Address [address] [place] [address] Care Team Providers Care Turning Sander Tender Name Role Phone Jose Lopez MD Primary Care Provider [facility] Javier Patel MD Primary Care Provider [phone] Reason for Visit * Reason Onset Date Comments refill request 09/28/2019 Encounter Details Date Type Department Care Team Description 09/28/2019 Refill Adult Medicine [address] [phone] Jose Lopez MD refill request Social History [...] current insurance carrier is: Payor: [facility] FFS / Plan: [facility] MEDICARE PREMIUM $10 [place] / Product Type: MEDICARE [id number] documented in this encounter Plan of Treatment Not on file documented as of this encounter Visit Diagnoses Not on filedocumented in this encounter Care Teams Turning Sander Tender Relationship Specialty Start Date End Date Jose Lopez MD PCP - General Internal Medicine 01/19/19 04/11/20 Javier Eller MD [address] [place] [address] PCP - General Internal Medicine 04/12/20 documented as of this encounter
--- OUTSIDE RECORDS SUMMARY | 2025-02-07 18:55 | XMS_ITS | Encounter Summary ---
Author Organization [facility] Address [address] [place] [address] Care Team Providers Care Cutter Apprentice Hand Name Role Phone Christal Celestin MD Primary Care Provider Africa Ibrahim MD Primary Care Provider Un available Jose Lopez MD Primary Care Provider Unavail Javier Patel MD Primary Care Provider [phone] Reason for Visit * Reason Onset Date Comments Faxed Refill 05/04/2018 Encounter Details Date Type Department Care Team Description 05/04/2018 Refill Adult Medicine [address] [address] Christal Celestin MD Faxed Refill Social History [...] Miscellaneous Notes * Telephone Encounter - Marleni Iinguez M.A. - 05/04/2018 11:21 AM EDT Lab [...] an upcoming appointment? No-unable to reach left [facility] to call for appointment due to [...] the RX # listed on the fax? [id number] Patients current insurance carrier is: Payor: [facility] FFS / Plan: [facility] MEDICARE PREMIUM $15 [place] / Product Type: MEDICARE [id number] documented in this encounter Plan of Treatment Not on file documented as of this encounter Visit Diagnoses Not on filedocumented in this encounter Care Teams Cutter Apprentice Hand Relationship Specialty Start Date End Date Christal Celestin MD PCP - General Internal Medicine 11/15/15 11/30/18 Africa Blankenship MD PCP - General Internal Medicine 12/01/18 9 Jose Lopez MD PCP - General Internal Medicine 01/19/19 04/11/20 Javier Eller MD [address] [place] [address] PCP - General Internal Medicine 04/12/20 documented as of this encounter
--- OUTSIDE RECORDS SUMMARY | 2025-02-07 18:55 | XMS_ITS | Encounter Summary ---
Author Organization [facility] Address [address] [place] [address] Care Team Providers Care Kinesiotherapist Name Role Phone Javier Eller MD Primary Care Provider [phone] Encounter Details Date Type Department Care Team Description 12/20/2020 Old Medical Records Medical Records [address] [place] [address] Abstract, Provider Social History Tobacco Use Types [...] on filedocumented in this encounter Care Teams Kinesiotherapist Relationship Specialty Start Date End Date Javier Eller MD [address] [place] [address] PCP - General Internal Medicine 04/12/20 documented as of this encounter
--- OUTSIDE RECORDS SUMMARY | 2025-02-07 18:55 | XMS_ITS | Patient Health Record ---
Author Organization [facility] Address [address] [facility] [place] [address] Care Team Providers Care Hospital Ward Clerk Name Role Phone Ismael Davis MD Primary Care Provider Kaiser Cerna Unavailable [phone] Allergies Allergen (clinical drug ingredient) Drug/Non Drug [...] Vaccine Route Administration Date Status Comme nts Influenza Unknown 08/16/2021 Administered COVID-19 Moderna Vaccine Unknown 08/23/2021 Administered 1st 11/26/20 2nd 12/24/20 Social History Tobacco Use: Social History Observation [...] Status Risk Notes Problem Acquired hallux valgus (32252153) Hallux valgus (acquired), left foot (M20.12) Active confirmed Problem Acquired hallux valgus (56330588) Hallux valgus (acquired), right foot (M20.11) Active confirmed Problem Plantar fascial fibromatosis (54215566) 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 Problem Acquired hammer toe of right foot (017494357069346 5) Other hammer toe(s) (acquired), right foot (M20.41) Active confirmed Problem Acquired hammer toe of left foot (184537052694598 3) Other hammer toe(s) (acquired), left foot (M20.42) Active confirmed Vital Signs Blood pressure diastolic 70 mm Hg 05/03/2024 Height 4ft 11in in 05/03/2024 Blood pressure systolic 138 mm Hg 05/03/2024 Weight 160 lbs 05/03/2024 BMI 32.31 kg/m2 05/03/2024 Encounters Encounter Location Date Provider Diagnosis [facility] [place] [address] [place] [address] 05/03/2024 Kaiser Riddle Tinea unguium B35.1 ; [...] nail L60.0 and Plantar fascial fibromatosis M72.2 [facility] [place] [address] [place] [address] 08/03/2024 [facility] Riddle Assessments Encounter Date Diagnosis [...] Medicare Advantage [address] [facility] [place] [address] [id number] Vero Ramírez Self - patient is the insured Medical (General) History Medical History History ICD Code Arthritis Back,Hip,and Knee pain Depression Headaches/Migraines Kidney disease Measles Mumps Chicken pox Surgical History Surgery Date(Month/Year) hysterectomy gall bladder Hospitalization History Reason Date(Month/Year) [facility] [facility] [place] [facility] [place]
--- OUTSIDE RECORDS SUMMARY | 2025-02-07 18:55 | XMS_ITS | Encounter Summary ---
Author Organization [facility] Address [address] [place] [address] Care Team Providers Care Supervisor Newspaper Deliveries Name Role Phone Name, Rafael TAVERA Primary Care Provider Christal Piedra MD Primary Care Provider Africa Ibrahim MD Primary Care Provider Un available Jose Lopez MD Primary Care Provider Unavail able Javier Eller MD Primary Care Provider [phone] Encounter Details Date Type Department Care Team Description 03/18/2012 Release of Information Medical Records [address] [place] [address] Abstract, Provider Social History Tobacco Use Types [...] filedocumented in this encounter Care Teams Supervisor Newspaper Deliveries Relationship Specialty Start Date End Date Name, MD Rafael PCP - General 12/13/09 11/14/15 Christal Celestin MD PCP - General Internal Medicine 11/15/15 11/30/18 Africa Blankenship MD PCP - General Internal Medicine 12/01/18 9 Jose Lopez MD PCP - General Internal Medicine 01/19/19 04/11/20 Javier Eller MD [address] [place] [address] [phone] PCP - General Internal Medicine 04/12/20 documented as of this encounter
--- OUTSIDE RECORDS SUMMARY | 2025-02-07 18:55 | XMS_ITS | Encounter Summary ---
Author Organization [facility] Address [address] [place] [address] Care Team Providers Care Ring Rolling Machine Operator Name Role Phone Name, Rafael TAVERA Primary Care Provider Christal Piedra MD Primary Care Provider Africa Ibrahim MD Primary Care Provider Un available Jose Lopez MD Primary Care Provider Unavail able Javier Eller MD Primary Care Provider [phone] Encounter Details Date Type Department Care Team Description 10/19/2014 Custom Bookbinder Report Medical Records [address] [place] [address] Hyacinth Momin MD Social History Tobacco Use [...] on filedocumented in this encounter Care Teams Ring Rolling Machine Operator Relationship Specialty Start Date End Date Name, MD Rafael PCP - General 12/13/09 11/14/15 Christal Celestin MD PCP - General Internal Medicine 11/15/15 11/30/18 Africa Blankenship MD PCP - General Internal Medicine 12/01/18 9 Jose Lopez MD PCP - General Internal Medicine 01/19/19 04/11/20 Javier Eller MD [address] [place] [address] [phone] PCP - General Internal Medicine 04/12/20 documented as of this encounter
--- OUTSIDE RECORDS SUMMARY | 2025-02-07 18:55 | XMS_ITS | Encounter Summary ---
Author Organization [facility] Address [address] [place] [address] Care Team Providers Care Geological Drafter Name Role Phone Jose Lopez MD Primary Care Provider Unavail able Javier Eller MD Primary Care Provider Encounter Details Date Type Department Care Team Description 02/14/2020 Telephone Adult Medicine [address] [address] Jose Lopez MD Social History [...] on filedocumented in this encounter Care Teams Geological Drafter Relationship Specialty Start Date End Date Jose Lopez MD PCP - General Internal Medicine 01/19/19 04/11/20 Javier Eller MD [address] [place] [address] PCP - General Internal Medicine 04/12/20 documented as of this encounter
--- OUTSIDE RECORDS SUMMARY | 2025-02-07 18:55 | XMS_ITS | Encounter Summary ---
Author Organization [facility] Address [address] [place] [address] Care Team Providers Care Blogs Manager Name Role Phone Jose Lopez MD Primary Care Provider Javier Jurado MD Primary Care Provider [phone] Encounter Details Date Type Department Care Team Description 01/19/2019 Telephone Adult Medicine - [place] [address] [place] [address] Bertha Lombardi MD [address] [place] [address] Social History Tobacco Use Types Packs/Day Years [...] EST [facility] Comment: If patient is -Lao, multiply result by 1.21 Chronic Kidney Disease: [...] AM EST Bertha Lombardi MD LAB [facility] * (ABNORMAL) BASIC METABOLIC PANEL (01/23/2019 9:18 [...] EDT [facility] Comment: If patient is -Lao, multiply result by 1.21 Chronic Kidney Disease: [...] Primary documented in this encounter Care Teams Blogs Manager Relationship Specialty Start Date End Date Jose Lopez MD PCP - General Internal Medicine 01/19/19 04/11/20 Javier Eller MD [address] [place] [address] PCP - General Internal Medicine 04/12/20 documented as of this encounter
--- OUTSIDE RECORDS SUMMARY | 2025-02-07 18:55 | XMS_ITS | Encounter Summary ---
Author Organization [facility] Address [address] [place] [address] Care Team Providers Care Bar Machine Operator Production Name Role Phone Name, Rafael TAVERA Primary Care Provider Ferny Adame MD Primary Care Provider [phone] Rebekah Moser MD Primary Care Provider [phone] Christal Celestin MD Primary Care Provider Africa Ibrahim MD Primary Care Provider Un available Jose Lopez MD Primary Care Provider Unavail able Javier Eller MD Primary Care Provider [phone] Encounter Details Date Type Department Care Team Description 03/12/2005 Orders Only Medical [address] [place] [address] [phone] Rebekah Moser MD [address] [place] [address] [phone] LONG-TERM (CURRENT) USE OF OTHER MEDICATIONS (Primary [...] RATE-[place] (03/12/2005 11:13 AM EDT) Pathologist [facility] ERYTHROCYTE SEDIMENTATION RATE 34(H) 0 - 20 MM/HR [facility] Comment: Performed at [facility], [address] [place] [address] 03/12/2005 11:1 3 AM EDT 03/12/2005 11:17 AM EDT Rebekah Moser MD LAB Performing Organization Address [facility] Co de Phone Number [facility] * RHEUMATOID FACTOR ASSAY (03/12/2005 11:13 AM EDT) [facility] RHEUMATOID FACTOR <10 <10 IU/ml [facility] 03/12/2005 11:1 3 AM EDT 03/12/2005 11:17 AM EDT Rebekah Moser MD LAB [facility] * ANTINUCLEAR ANTIBODIES, ASSAY (03/12/2005 11:13 AM EDT) Pathologist [facility] ANTI-NUCLEAR ANTIBODY SCREEN NEGATIVE NEGATIVE [facility] Comment: MARK test should be ordered only if a clinical evidence ofSLE or other rheumatic condition exists. ??MARK test shouldnot be used for random screening for SLE. Reviewed by Dr. Sharpe 03/12/2005 11:1 3 AM EDT 03/12/2005 11:17 AM EDT Rebekah Moser MD LAB Performing Organization Address City/[facility]/ZIP Co de Phone Number [facility] * CBC (AUTO DIFF & PLATELET) (03/12/2005 [...] Rebekah Moser MD LAB Performing Organization Address [facility]/ZIP Co de Phone Number [facility] * THYROID PROFILE W/TSH (03/12/2005 11:13 AM EDT) TSH CASCADE 1.90 0.40 - 4.00 uIU/ml [facility] 03/12/2005 11:1 3 AM EDT 03/12/2005 11:17 AM EDT Rebekah Moser MD LAB [facility] * (ABNORMAL) BASIC METABOLIC PANEL (03/12/2005 11:13 [...] Primary documented in this encounter Care Teams Bar Machine Operator Production Relationship Specialty Start Date End Date Name, MD Rafael PCP - General 12/13/09 11/14/15 Ferny Gonzalez MD [address] [place] [address] PCP - General 04/21/07 12/12/09 Rebekah Moser MD [address] [place] [address] PCP - General 08/31/1999 04/20/07 Christal Celestin MD [address] [place] [address] PCP - General Internal Medicine 11/15/15 11/30/18 Africa Blankenship MD [address] [place] [address] PCP - General Internal Medicine 12/01/18 01/18/19 Jose Lopez MD [address] [place] [address] PCP - General Internal Medicine 01/19/19 04/11/20 Javier Eller MD [address] [place] [address] PCP - General Internal Medicine 04/12/20 documented as of this encounter
--- OUTSIDE RECORDS SUMMARY | 2025-02-07 18:56 | XMS_ITS ---
Author Organization [facility] Address [address] [facility] [place] [address] Care Team Providers Care Access Nurse Name Role Phone Ismael Davis MD Primary Care Provider [facility] Cerna [phone] REASON FOR VISIT cx 08/05 Encounters Encounter Location Date Provider Diagnosis [facility] [address] [place] [address] 08/03/2024 [facility] R[facility] Plan Of Treatment No Information Progress Notes * Vero CONNELLYDOB: [birth year] (83 yo F)Acc No.[id number]:08/03/2024 Patient:?DarrellVero :1940???Age:83 Y???Sex:Female Address:[address], [place], [address] * true * Date:? Generated for Printi ng/Facoreyg/eTransmitting on:?02/07/2025 06:55 PM EDT
--- OUTSIDE RECORDS SUMMARY | 2025-02-07 18:56 | XMS_ITS ---
Author Organization [facility] Address [address] [facility] [place] [address] Care Team Providers Care Polisher And Buffer Name Role Phone Ismael Davis MD Primary Care Provider Kaiser Cerna Unavailable [phone] Allergies Allergen (clinical drug ingredient) Drug/Non Drug [...] 024 Encounters Encounter Location Date Provider Diagnosis [facility] [place] [address] [place] [address] 05/03/2024 [facility] Riddle Tinea unguium B35.1 ; [...] * Vero CONNELLYDOB: [birth year] (83 yo F)Acc No.[id number]:05/03/2024 Progress Note Patient:?DarrellAguilaly Provider:?Kaiser Riddle DPM :1940???Age:83 Y???Sex:Female D ate:05/03/2024 Address:[address], [place] , [place] Pcp:Ismael Davis MD Subjective: * Chief Complaints: [...] Exercise. ?Marital status: . ?Occupation: retired- [employer]. * Medications:?TakingAlendrona te Sodium 70 MG Tablet [...] surgical procedures to prevent recurrence.? * Procedure Codes:?80376 Avuls ion Plate, Modifiers: T1 * Preventive [...] DPM Date:? 024 Generated for Astrid mello/Faxing/eTransmitting on:?02/07/2025 06:55 PM EDT History and Physical [...]
--- NOTE | 2025-02-07 18:57 | PM.IMHP ---
History of Present Illness Date of Service: 02/07/25 Chief Complaint: Fall This is a 84-year-old female with pertinent history of hypertension, mixed hyperlipidemia, polymyalgia rheumatica, osteoarthritis, hypothyroidism, mood disorder, gastroesophageal reflux disease, COPD not on home oxygen who presents to the emergency department for evaluation after a fall. Patient states she was wearing sandals and her right toe got caught in the door while she was entering the house and she tripped and fell. Did not lose consciousness prior to the fall. No dizziness or lightheadedness prior to the fall. No chest pain or palpitations prior to the fall. No rhythmic jerking movement of extremities. Patient complaining of severe right pain since the fall which is worse with movement. No fever, chills, shortness of breath, abdominal pain, changes in urinary or bowel habits. In the emergency department, imaging with comminuted intertrochanteric and subtrochanteric fracture of the proximal right femur. Review of Systems Constitutional: Constitutional: Reports no additional constitutional complaints Cardiovascular: Cardiovascular: Reports no additional cardiovascular complaints Respiratory: Respiratory: Reports no additional respiratory complaints Gastrointestinal: Gastrointestinal: Reports no additional gastrointestinal complaints Genitourinary: Genitourinary: Reports no additional female genitourinary complaints Musculoskeletal: Musculoskeletal: Reports arthralgias [facility] Medical History Dyspnea on exertion Bronchitis Hyperlipidemia Hypertension Polymyalgia rheumatica Family History Mother CHF (congestive heart failure) Surgical History Hx of cholecystectomy Hx of hysterectomy Social History Household Members: Spouse Housing: House Do you presently have visiting nurse or other home services: No Alcohol intake: current Alcohol intake frequency: holidays/special occasions only Patient Tobacco Use Status: Former Tobacco user Tobacco use type: Cigarette Cigarettes Per Day: 15 Years Smoked: 4 e-Cigarette/Vaping Use: Never Used Second Hand Smoke Exposure: No Substance Use Type: Marijuana Advance Directives: Yes Advance Directives on File: Yes Advance Directives Date on File: 11/24/23 service: No Current occupational status: retired Meds Allergies Allergy/AdvReac Type Severity Reaction Status Date / Time naproxen [NAPROXEN] Allergy Intermediate BLISTERS Verified 02/07/25 16:02 IN MOUTH Sulfa (Sulfonamide Allergy Intermediate BLISTERS Verified 02/07/25 16:02 Antibiotics) ON TONGUE [SULFA (SULFONAMIDE ANTIBIOTICS)] Home Medications ?Medication ?Instructions ?Recorded ?Confirmed ?Last Taken ?Type fexofenadine 180 mg tablet 180 mg PO DAILY 04/13/21 12/24/24 11/18/23 History fluticasone propionate 50 1 spray intranasal DAILY 04/13/21 12/24/24 11/18/23 History mcg/actuation nasal spray,suspension (Allergy Relief (fluticasone)) omeprazole 20 mg capsule,delayed 20 mg PO DAILY@0630 04/13/21 12/24/24 11/18/23 History release simvastatin 20 mg tablet 20 mg PO DAILY 04/13/21 12/24/24 11/18/23 History folic acid 1 mg tablet 1 mg PO DAILY 11/28/22 12/24/24 11/18/23 History acetaminophen 650 mg 1 tab PO Q8H PRN pain 12/07/22 12/24/24 Unknown History tablet,extended release ([place] Arthritis Pain) cholecalciferol (vitamin D3) 25 25 mcg PO DAILY 12/07/22 12/24/24 11/18/23 History mcg (1,000 unit) tablet (Vitamin D3) magnesium oxide 400 mg (241.3 mg 400 mg PO DAILY 12/07/22 12/24/24 11/18/23 History magnesium) tablet levothyroxine 25 mcg tablet 25 mcg PO DAILY@0600 03/31/23 12/24/24 11/18/23 History potassium chloride 10 mEq 10 meq PO DAILY 03/31/23 12/24/24 11/18/23 History tablet,extended release Physical Exam Vital Signs and Narrative: Vital Signs: Last Vital Signs Temp 97.6 F 02/07/25 15:59 Pulse 72 02/07/25 17:09 Resp 22 H 02/07/25 17:09 BP 180/77 H 02/07/25 17:09 Pulse Ox 100 02/07/25 17:09 O2 Del Method Room Air 02/07/25 17:09 BMI result Body Mass Index 22.0 Elderly female lying in bed in no distress Neck supple, no JVD Regular rate and rhythm, S1-S2 heard Reduced breath sounds at bases, no wheezing or crackles appreciated Abdomen soft nontender, no guarding, no rigidity Patient is awake, alert and oriented x3 ; no focal motor deficit Psych: Normal mood Right leg shortening and limited movement of right lower extremity due to pain Results Labs 02/07/25 17:08 02/07/25 17:08 Labs: Laboratory Results - last 24 hr 02/07/25 17:08 MCV 89.8 MCH 30.8 MCHC 34.3 RDW 12.4 Plt Count 247 MPV 10.3 Immature Gran % (Auto) 0.5 H Neut % (Auto) 78.5 H Lymph % (Auto) 13.7 L [place] % (Auto) 6.2 Eos % (Auto) 0.8 Baso % (Auto) 0.3 Lymph # (Auto) 1.4 [place] # (Auto) 0.7 Eos # (Auto) 0.1 Baso # (Auto) 0.0 Abs Immat Gran (auto) 0.05 H Absolute Neuts (auto) 8.3 Absolute Nucleated RBC 0.000 Nucleated RBC % (auto) 0.0 PT 11.8 INR 1.0 APTT 29.9 Anion Gap 20 Estim Creat Clear Calc 50.1 Estimated GFR > 60 Random Glucose 98 Calcium 9.7 Magnesium 1.6 Total Bilirubin 0.4 AST 21 ALT < 6 Alkaline Phosphatase 60 Total Protein 6.6 Albumin 3.9 Lipase 17 Influenza Type A (PCR) NEGATIVE Influenza Type B (PCR) NEGATIVE RSV RNA Qual (PCR) NEGATIVE SARS-CoV-2 RNA (RT-PCR) NEGATIVE Blood Type A Positive Antibody Screen NEGATIVE Assessment and Plan (1) Closed intertrochanteric fracture of right femur: Status: Acute Plan This is a 84-year-old female with pertinent history of hypertension, mixed hyperlipidemia, polymyalgia rheumatica, osteoarthritis, hypothyroidism, mood disorder, gastroesophageal reflux disease, COPD not on home oxygen who presents to the emergency department for evaluation after a fall. #. Acute right femur fracture due to mechanical fall: Will admit patient with IV opioids p.r.n. for analgesia. Consulted Orthopedic surgery, appreciate assistance. Will keep patient NPO after midnight #. Preoperative risk: RCRI score is 0. Okay to proceed with acceptable risk. #. Hypokalemia: Repleted #. Hypertension: Continue home antihypertensives #. Mood disorder: Continue home mood stabilizers #. Gastroesophageal reflux disease: On PPI #. Hypothyroidism: On Synthroid #. COPD: No exacerbation during admission. Continue home inhalers Med rec pending DVT prophylaxis: Mechanical Full code. Discussed with patient at bedside Admit as inpatient and will require two night minimum hospital stay for possible surgical management of right femur fracture (as above), which is not possible in a lesser acute setting. Orthopedic surgery consult pending Quality Stroke Does the patient have a stroke diagnosis?: No VTE Prior VTE?: No VTE Risk Level:: Medical - moderate - high VTE Device Contraindication: N/A - Device Ordered VTE Drug Contraindication: Treatment Not Indicated
--- NOTE | 2025-02-07 20:32 | PHA.MEDREC ---
Addendum entered by Coby Peck RPh 02/07/25 20:38: reviewed by [facility]. left metoprolol 12.5mg BID Original Note: Pharmacy Consult ? Medication Reconciliation Pharmacy has completed the medication reconciliation. Spoke with patient and she was able to confirm all her mediations except for her Metoprolol 25mg tab. I called patients who informed us they brought a list in and I found it in the nurses station. Patient is taking Metoprolol 25mg tabs once a day.
[2025-02-08] VITALS (17 sets, daily range): BP systolic 129–189; BP diastolic 59–89; PULSE 69–100; RESP 12–18; TEMP 36.1–37.7; O2SAT 85–100; BMI 24.0
[2025-02-08] MEDS: HYDROmorphone HCl 1 MG/ML SYRINGE IVPUSH ×3 (01:32→11:43)
[2025-02-08 06:07] LABS: MANUAL DIFF FLAG NO
[2025-02-08 06:15] LABS: Basophils Percent Auto 0.2 % (0-2); Eosinophils Absolute Auto 0.1 X10*3/uL (0.0-0.4); Eosinophils Percent Auto 0.5 % (0-4); Hematocrit 37.7 % (37.0-47.0); Hemoglobin 12.9 g/dl (12.0-16.0); Imm Gran Abs Auto 0.12 X10*3/uL (0.00-0.03); Imm Gran Pct Auto 0.8 % (0.0-0.4); Lymphocytes Absolute Auto 1.2 X10*3/uL (1.2-4.9); Lymphocytes Percent Auto 8.1 % (20-40); Mean Corpuscular HGB Conc 34.2 g/dl (31.0-35.0); Mean Corpuscular Hemoglobin 31.2 pg (27.0-33.0); Mean Corpuscular Volume 91.3 fL (80.0-98.0); Mean Platelet Volume 10.5 fL (9.4-12.3); Monocytes Absolute Auto 0.9 X10*3/uL (0.1-1.2); Monocytes Percent Auto 6.3 % (2-11); Neutrophils Absolute Auto 12.4 x10*3/uL (2.0-8.3); Neutrophils Percent Auto 84.1 % (45-73); Platelet Count 258 X10*3/uL (160-400); Red Blood Count 4.13 X10*6/uL (4.20-5.50); Red Cell Distribution Width 12.3 % (11.0-16.0); White Blood Count 14.7 X10*3/uL (4.8-10.8)
--- NOTE | 2025-02-08 06:27 | PC.NURSE ---
pt did not void bladder scan for 314 ml notified no new orders at this time
[2025-02-08 06:28] LABS: Anion Gap 14 (12-20); Blood Urea Nitrogen 14 mg/dL (9-16); Calcium 9.1 mg/dL (8.4-10.2); Carbon Dioxide 27 mmol/L (22-29); Chloride 103 mmol/L (96-108); Creatinine Clr Calc Pharmacy 60.5; Estimated Glomerular Filt Rate > 60; Glucose Random 109 mg/dL (60-115); Potassium 3.4 mmol/L (3.3-5.1); Sodium 141 mmol/L (135-145)
--- NOTE | 2025-02-08 07:38 | P.HPOP_ITS ---
History of Present Illness History of Present Illness Date of Service: 02/08/25 Chief complaint: hip fracture Narrative: Vero Ramírez is a 84 year old female with a past medical history significant for hypertension, mixed hyperlipidemia, polymyalgia rheumatica, osteoarthritis, hypothyroidism, mood disorder, gastroesophageal reflux disease, COPD not on home oxygen who presents to the emergency department for evaluation after a fall. Patient states she was wearing sandals and her right toe got caught in the door while she was entering the house and she tripped and fell landing on the right hip. Patient complaining of severe right pain since the fall which is worse with movement. While in the ED x-rays were obtained and significant for a comminuted intertrochanteric and subtrochanteric fracture of the proximal right femur. Review of Systems 2 Review of Systems: Yes all other systems are reviewed and are negative PMFSH Past Medical History Medical History Dyspnea on exertion Bronchitis Hyperlipidemia Hypertension Polymyalgia rheumatica Family History Family History Mother CHF (congestive heart failure) Surgical History Surgical History Hx of cholecystectomy Hx of hysterectomy Social History Social History Household Members: Spouse Housing: House Do you presently have visiting nurse or other home services: No Alcohol intake: current Alcohol intake frequency: holidays/special occasions only Patient Tobacco Use Status: Former Tobacco user Tobacco use type: Cigarette Cigarettes Per Day: 15 Years Smoked: 4 e-Cigarette/Vaping Use: Never Used Second Hand Smoke Exposure: No Substance Use Type: Marijuana Advance Directives Date on File: 11/24/23 service: No Current occupational status: retired Meds Allergies Allergy/AdvReac Type Severity Reaction Status Date / Time naproxen [NAPROXEN] Allergy Intermediate BLISTERS Verified 02/07/25 16:02 IN MOUTH Sulfa (Sulfonamide Allergy Intermediate BLISTERS Verified 02/07/25 16:02 Antibiotics) ON TONGUE [SULFA (SULFONAMIDE ANTIBIOTICS)] Active Medications: Current Medications Acetaminophen (Acetaminophen 325 Mg Tablet) 650 mg PO Q6H PRN PRN Reason: Pain, Mild 1-3,fever,headache Albuterol Sulfate (Albuterol Sulfate 90 Mcg 8 Gm Inhaler) 2 puff INHALE Q6H PRN PRN Reason: Shortness Of Breath Or Wheezing Calcium Carbonate (Calcium Carbonate 750 Mg Tab.Chew) 750 mg PO Q4H PRN PRN Reason: Heartburn Fluticasone Propionate (Fluticasone Propionate Nasal 16 Gm Flushing) 1 spray NOSTRIL-B DAILY PRN PRN Reason: Allergy Symptoms Folic Acid (Folic Acid 1 Mg Tablet) 1 mg PO DAILY [facility] Hydromorphone HCl (Hydromorphone Hcl 1 Mg/Ml Syringe) 1 mg IVPUSH Q4H PRN; Protocol PRN Reason: Pain, Severe (Pain Scale 7-10) Last Admin: 02/08/25 01:32 Dose: 1 mg Lactated Ringer's (Lr) 1,000 mls @ 100 mls/hr IVCONT .Q10H [facility] Stop: 02/08/25 16:29 Levothyroxine Sodium (Levothyroxine Sodium 25 Mcg Tablet) 25 mcg PO DAILY@0600 [facility] Loratadine (Loratadine 10 Mg Tablet) 10 mg PO DAILY PRN PRN Reason: Allergy Symptoms Magnesium Hydroxide (Milk Of Magnesia 30 Ml Oral.Susp) 30 ml PO DAILY PRN PRN Reason: Constipation Magnesium Oxide (Magnesium Oxide 400 Mg Tablet) 400 mg PO DAILY [facility] Melatonin (Melatonin 3 Mg Tablet) 6 mg PO BEDTIME PRN PRN Reason: Insomnia Metoprolol Tartrate (Metoprolol Tartrate 12.5 Mg Halftab) 12.5 mg PO BID [facility]; Protocol Omeprazole (Omeprazole 20 Mg Capsule.Dr) 20 mg PO DAILY@0630 [facility] Ondansetron HCl (Ondansetron Hcl 4 Mg/2 Ml Vial) 4 mg IVPUSH Q8H PRN PRN Reason: Nausea and Vomiting Potassium Chloride (Potassium Chloride Er 10 Meq Tablet.Er) 10 meq PO DAILY [facility] Sertraline HCl (Sertraline Hcl 25 Mg Tablet) 25 mg PO BEDTIME [facility] Sodium Chloride (0.9 % Sodium Chloride Flush 3 Ml Syringe) 3 ml IVFLUSH QSHIFT [facility] Last Admin: 02/08/25 00:48 Dose: Not Given Tramadol HCl (Tramadol Hcl 50 Mg Tablet) 25 mg PO BID [facility] Vitamin D (Cholecalciferol (Vitamin D3) 25 Mcg Tablet) 25 mcg PO DAILY NADIYA Home Medications ?Medication ?Instructions ?Recorded ?Confirmed ?Last Taken ?Type fexofenadine 180 mg tablet 180 mg PO DAILY PRN Allergy 04/13/21 02/07/25 11/18/23 History Symptoms fluticasone propionate 50 1 spray intranasal DAILY PRN 04/13/21 02/07/25 11/18/23 History mcg/actuation nasal Allergy Symptoms spray,suspension (Allergy Relief (fluticasone)) omeprazole 20 mg capsule,delayed 20 mg PO DAILY@0630 04/13/21 02/07/25 02/06/25 History release simvastatin 20 mg tablet 20 mg PO DAILY 04/13/21 02/07/25 02/06/25 History folic acid 1 mg tablet 1 mg PO DAILY 11/28/22 02/07/25 02/06/25 History cholecalciferol (vitamin D3) 25 25 mcg PO DAILY 12/07/22 02/07/25 02/06/25 History mcg (1,000 unit) tablet (Vitamin D3) magnesium oxide 400 mg (241.3 mg 400 mg PO DAILY 12/07/22 02/07/25 02/06/25 History magnesium) tablet levothyroxine 25 mcg tablet 25 mcg PO DAILY@0600 03/31/23 02/07/25 02/07/25 History potassium chloride 10 mEq 10 meq PO DAILY 03/31/23 02/07/25 02/06/25 History tablet,extended release acetaminophen 500 mg tablet 1,000 mg PO BID PRN Pain 02/07/25 02/07/25 02/06/25 History albuterol sulfate 90 mcg/actuation 2 puff inhalation Q6H PRN 02/07/25 02/07/25 Unknown History aerosol inhaler Shortness Of Breath Or Wheezing hydrochlorothiazide 25 mg tablet 25 mg PO DAILY 02/07/25 02/07/25 02/06/25 History metoprolol tartrate 25 mg tablet 12.5 mg PO BID 02/07/25 02/07/25 02/06/25 History sertraline 25 mg tablet 25 mg PO BEDTIME 02/07/25 02/07/25 02/06/25 History Physical Exam 2 Vital Signs: Vital Signs: Last Vital Signs Temp 98.5 F 02/08/25 03:59 Pulse 83 02/08/25 03:59 Resp 18 02/08/25 03:59 BP 139/70 02/08/25 03:59 Pulse Ox 96 02/08/25 03:59 O2 Del Method Room Air 02/08/25 03:59 O2 Flow Rate 3 02/08/25 00:29 BMI result Body Mass Index 24.0 Const: General: cooperative, healthy appearing and no acute distress Resp: Effort & Inspection: normal respiratory effort and able to speak in complete sentences Cardio: Rate: regular rate Peripheral pulses: Peripheral pulses 2+ throughout GI: Palpation (GI): Soft to palpation Skin: Lesions: no lesions Rashes: no rashes Extrem: Other: RLE pain with any movement Able to dorsi/plantar flex Sensation intact Results Labs 02/08/25 05:29 02/08/25 05:29 Labs: Abnormal lab results 02/07/25 02/08/25 Range/Units 17:08 05:29 WBC 14.7 H (4.8-10.8) X10*3/uL RBC 4.13 L (4.20-5.50) X10*6/uL Immature Gran % (Auto) 0.5 H 0.8 H (0.0-0.4) % Neut % (Auto) 78.5 H 84.1 H (45-73) % Lymph % (Auto) 13.7 L 8.1 L (20-40) % Abs Immat Gran (auto) 0.05 H 0.12 H (0.00-0.03) X10*3/uL Absolute Neuts (auto) 12.4 H (2.0-8.3) x10*3/uL Potassium 3.2 L (3.3-5.1) mmol/L BUN 17 H (9-16) mg/dL H & H 02/07/25 02/08/25 Range/Units 17:08 05:29 Hgb 13.9 12.9 (12.0-16.0) g/dl Hct 40.5 37.7 (37.0-47.0) % Coagulation 02/07/25 Range/Units 17:08 INR 1.0 (0.9-1.1) All other labs normal. Assessment and Plan (1) Closed intertrochanteric fracture of right femur: Status: Acute I discussed the case with Dr. Pardo and explained the extent of the injury to the patient and options available which include surgical intervention. I explained the procedure in detail along with the length of recovery and rehab course. I explained the risk, benefits and alternatives. Risk including, but not limited to infection, blood clots, bleeding, non union or malunion and nerve/tissue damage to surrounding areas. I answered all their questions and with their understanding they have consented to move forward with Operative Fixation of the right femur. The patient will be T&S, med clearance obtained by medicine and she will remain NPO. Plan for OR later this afternoon. Quality Stroke Does the patient have a stroke diagnosis?: No VTE Prior VTE?: No VTE Risk Level:: Medical - moderate - high VTE Device Contraindication: N/A - Device Ordered VTE Drug Contraindication: Treatment Not Indicated Procedures Date of Service Date of Service: 02/08/25
[2025-02-08] MEDS: 0.9 % Sodium Chloride Flush 3 ML SYRINGE IVFLUSH (07:42)
[2025-02-08] MEDS: traMADoL HCL 50 MG TABLET 25 MG PO ×2 (07:43→19:43)
[2025-02-08] MEDS: Metoprolol Tartrate 12.5 MG HALFTAB PO ×2 (07:43→19:42)
[2025-02-08] MEDS: Potassium Chloride ER 10 MEQ TABLET.ER PO (07:43)
[2025-02-08] MEDS: Lactated Ringers 1,000 ML 100 ML IVCONT (09:06)
--- NOTE | 2025-02-08 10:44 | MHC.CM.PN ---
pt lives w/husb and has own ride home jhad no previous services may need rehab when dcd vs home w/servis pending pt rocky
--- NOTE | 2025-02-08 13:16 | MHC.SHP ---
Pre-Procedural Eval Section A - 24 Hr Update-Section A only Date of Service: 02/08/25 The patient is an INPATIENT: Yes Changes since office visit: No Cold of Flu in the past 2 weeks, No New Medical Problems, No Changes in Medication and No Patient answered all questions The patient has been examined within 24 hours of the surgical procedure. The History & Physical has been completed within 30 days and I have reviewed it.: Yes Section B - Complete if H&P > 30 days Chief Complaint: hip fracture Allergies: Allergies Allergy/AdvReac Type Severity Reaction Status Date / Time naproxen [NAPROXEN] Allergy Intermediate BLISTERS Verified 02/07/25 16:02 IN MOUTH Sulfa (Sulfonamide Allergy Intermediate BLISTERS Verified 02/07/25 16:02 Antibiotics) ON TONGUE [SULFA (SULFONAMIDE ANTIBIOTICS)] Plan I have reviewed the history and physical and performed a pertinent physical examination on my patient. No changes have occurred unless specified. Time Spent With Patient Time: Total time managing care of this patient today ____ minutes.
--- NOTE | 2025-02-08 13:50 | P.PNIM_ITS ---
Subjective Subjective Date of Service: 02/08/25 Interval History: right hip fracture Review of Systems has right hip pain Review of Systems: Yes all other systems are reviewed and are negative Physical Exam 2 Vital Signs: Vital Signs: Last Vital Signs Temp 99.8 F 02/08/25 12:21 Pulse 98 02/08/25 12:55 Resp 14 02/08/25 12:21 BP 141/70 H 02/08/25 12:21 Pulse Ox 94 02/08/25 12:55 O2 Del Method Nasal Cannula 02/08/25 12:55 O2 Flow Rate 2 02/08/25 12:55 BMI result Body Mass Index 24.0 Appearance: Alert.? Oriented X3.. cvs: rrr, [id number] . res: clear to auscultation ,no rhonchii or wheezing abd: no rebound or guarding ,nt, bs present. ext -right hip area pain. neuro: axo3 , nonfocal. Objective Data Active Medications Acetaminophen (Acetaminophen 325 Mg Tablet) 650 mg PO Q6H PRN PRN Reason: Pain, Mild 1-3,fever,headache Albuterol Sulfate (Albuterol Sulfate 90 Mcg 8 Gm Inhaler) 2 puff INHALE Q6H PRN PRN Reason: Shortness Of Breath Or Wheezing Calcium Carbonate (Calcium Carbonate 750 Mg Tab.Chew) 750 mg PO Q4H PRN PRN Reason: Heartburn Fluticasone Propionate (Fluticasone Propionate Nasal 16 Gm [place]) 1 spray NOSTRIL-B DAILY PRN PRN Reason: Allergy Symptoms Folic Acid (Folic Acid 1 Mg Tablet) 1 mg PO DAILY [facility] Last Admin: 02/08/25 07:48 Dose: Not Given Documented By: CHUCHO Non-Admin Reason: NPO Hydromorphone HCl (Hydromorphone Hcl 1 Mg/Ml Syringe) 1 mg IVPUSH Q4H PRN; Protocol PRN Reason: Pain, Severe (Pain Scale 7-10) Last Admin: 02/08/25 11:43 Dose: 1 mg Documented By: CHUCHO Lactated Ringer's (Lr) 1,000 mls @ 100 mls/hr IVCONT .Q10H NADIYA Stop: 02/08/25 16:29 Last Admin: 02/08/25 09:06 Dose: 100 mls/hr Documented By: CHUCHO Levothyroxine Sodium (Levothyroxine Sodium 25 Mcg Tablet) 25 mcg PO DAILY@0600 [facility] Last Admin: 02/08/25 07:48 Dose: Not Given Documented By: CHUCHO Non-Admin Reason: NPO Loratadine (Loratadine 10 Mg Tablet) 10 mg PO DAILY PRN PRN Reason: Allergy Symptoms Magnesium Hydroxide (Milk Of Magnesia 30 Ml Oral.Susp) 30 ml PO DAILY PRN PRN Reason: Constipation Magnesium Oxide (Magnesium Oxide 400 Mg Tablet) 400 mg PO DAILY [facility] Last Admin: 02/08/25 07:48 Dose: Not Given Documented By: CHUCHO Non-Admin Reason: NPO Melatonin (Melatonin 3 Mg Tablet) 6 mg PO BEDTIME PRN PRN Reason: Insomnia Metoprolol Tartrate (Metoprolol Tartrate 12.5 Mg Halftab) 12.5 mg PO BID [facility]; Protocol Last Admin: 02/08/25 07:43 Dose: 12.5 mg Documented By: CHUCHO Omeprazole (Omeprazole 20 Mg Capsule.Dr) 20 mg PO DAILY@0630 [facility] Ondansetron HCl (Ondansetron Hcl 4 Mg/2 Ml Vial) 4 mg IVPUSH Q8H PRN PRN Reason: Nausea and Vomiting Potassium Chloride (Potassium Chloride Er 10 Meq Tablet.Er) 10 meq PO DAILY [facility] Last Admin: 02/08/25 07:43 Dose: 10 meq Documented By: CHUCHO Sertraline HCl (Sertraline Hcl 25 Mg Tablet) 25 mg PO BEDTIME [facility] Sodium Chloride (0.9 % Sodium Chloride Flush 3 Ml Syringe) 3 ml IVFLUSH QSHIFT [facility] Last Admin: 02/08/25 07:42 Dose: 3 ml Documented By: CHUCHO Tramadol HCl (Tramadol Hcl 50 Mg Tablet) 25 mg PO BID [facility] Last Admin: 02/08/25 07:43 Dose: 25 mg Documented By: CHUCHO Vitamin D (Cholecalciferol (Vitamin D3) 25 Mcg Tablet) 25 mcg PO DAILY [facility] Last Admin: 02/08/25 07:48 Dose: Not Given Documented By: CHUCHO Non-Admin Reason: NPO Labs 02/08/25 05:29 02/08/25 05:29 Labs: Laboratory Results - last 24 hr 02/07/25 02/08/25 17:08 05:29 MCV 89.8 91.3 MCH 30.8 31.2 MCHC 34.3 34.2 RDW 12.4 12.3 Plt Count 247 258 MPV 10.3 10.5 Immature Gran % (Auto) 0.5 H 0.8 H Neut % (Auto) 78.5 H 84.1 H Lymph % (Auto) 13.7 L 8.1 L [place] % (Auto) 6.2 6.3 Eos % (Auto) 0.8 0.5 Baso % (Auto) 0.3 0.2 Lymph # (Auto) 1.4 1.2 [place] # (Auto) 0.7 0.9 Eos # (Auto) 0.1 0.1 Baso # (Auto) 0.0 0.0 Abs Immat Gran (auto) 0.05 H 0.12 H Absolute Neuts (auto) 8.3 12.4 H Absolute Nucleated RBC 0.000 0.000 Nucleated RBC % (auto) 0.0 0.0 PT 11.8 INR 1.0 APTT 29.9 Anion Gap 20 14 Estim Creat Clear Calc 50.1 60.5 Estimated GFR > 60 > 60 Random Glucose 98 109 Calcium 9.7 9.1 D Magnesium 1.6 Total Bilirubin 0.4 AST 21 ALT < 6 Alkaline Phosphatase 60 Total Protein 6.6 Albumin 3.9 Lipase 17 Influenza Type A (PCR) NEGATIVE Influenza Type B (PCR) NEGATIVE RSV RNA Qual (PCR) NEGATIVE SARS-CoV-2 RNA (RT-PCR) NEGATIVE Blood Type A Positive Antibody Screen NEGATIVE Assessment and Plan (1) Closed intertrochanteric fracture of right femur: Status: Acute Assessment and Plan: 84-year-old female with pertinent history of hypertension, mixed hyperlipidemia, polymyalgia rheumatica, osteoarthritis, hypothyroidism, mood disorder, gastroesophageal reflux disease, COPD not on home oxygen who presents to the emergency department for evaluation after a fall. Acute right femur fracture due to mechanical fall: npo continue IV opioids p.r.n. for analgesia. Consulted Orthopedic surgery, appreciate assistance went for surgery Hypokalemia: Repleted and resolved. Hypertension: Continue home antihypertensives Mood disorder: Continue home mood stabilizers Gastroesophageal reflux disease: On PPI Hypothyroidism: On Synthroid COPD:stable . Continue home inhalers dvt prophylax: [facility] devices ongoing need :right femur fracture -need ortho /surgery ,iv pain meds and moniter closely. Quality Stroke Does the patient have a stroke diagnosis?: No VTE Prior VTE?: No VTE Risk Level:: Medical - moderate - high VTE Device Contraindication: N/A - Device Ordered VTE Drug Contraindication: Treatment Not Indicated
--- NOTE | 2025-02-08 15:14 | PM.OP ---
Brief Operative Note Date of Service: 02/08/25 Pre-op diagnosis: Right intertrochanteric hip fracture Post-op diagnosis: same Procedure: Right hip IMN Implants: [place] [id number] with mm hip screw and 37.5 distal interlock Surgeon: Richard Pardo MD Anesthesia: GETA and regional Was an Cap Lining Machine Operator used for this Procedure?: No Estimated blood loss (mL): 100 IV fluids (mL): 800 Pathology: none sent Condition: stable Disposition: PACU
--- NOTE | 2025-02-08 15:17 | W.PM.OPN ---
Operative Note Operative Note Date of Service: 02/08/25 Narrative: Date of Service: 02/08/25 Pre-op diagnosis: Right intertrochanteric hip fracture Post-op diagnosis: same Procedure: Right hip IMN Implants: [place] [id number] with mm hip screw and 37.5 distal interlock Surgeon: Richard Pardo MD Anesthesia: GETA and regional Was an Utility Hand used for this Procedure?: No Estimated blood loss (mL): 100 IV fluids (mL): 800 Pathology: none sent Condition: stable Disposition: PACU Procedure in detail: Patient was brought to the operating room and prepped and draped in standard sterile fashion. Time-out was called to identify proper site procedure proper surgeon and IV antibiotics per weight were administered. She was positioned on the fracture table and a traction and slight internal rotation were performed and biplanar fluoroscopy confirmed initial fracture reduction. I then made a stab incision proximal to the greater trochanter in using a guidewire made a entry point just lateral to the tip of the greater trochanter and placed a guidewire into the femoral metadiaphysis. I then over-reamed with 15 mm Reamer placed my ball-tip guidewire down distally in the femur and measured my length. I selected a 340mm x 11mm 125deg IM nail and reamed up to a 13. I then inserted the nail. I then turned my attention to the hip screw where I used a guidewire and a tip apex distance of less than 1.5 measured my hip screw. I then pre drilled and placed a hip screw using biplanar fluoroscopy. Once I was satisfied with the position of the hip screw I turned my attention to the distal aspect of the nail. Using perfect [place] technique I placed 1 static distal interlocking screw in standard AO technique. I then removed all I then placed my set screw proximally and removed all extraneous instrumentation. Final biplanar radiographs were taken. I was satisfied with the position of the hardware and the fracture reduction. I think copiously irrigated closed with absorbable sutures negra and injected 30 mL of into the area of the incisions. Traction was let down patient was placed in sterile dressing awakened from anesthesia brought to recovery room stable condition there were no known complications.
--- NOTE | 2025-02-08 15:28 | HO.ANESPROP2 ---
HPI - Anesthesia Eval Consult details Narrative: 84 F with hip fracture PMFSH Active Problems Active Problems: All Active Problems (Updated 02/07/25 @ 18:10 by Jermaine Price MD) Closed intertrochanteric fracture of right femur (Acute) Fall (Acute) Lumbar radicular pain (Acute) Spondylolisthesis, lumbar region (Acute) Compression fracture of body of thoracic vertebra (Acute) Syncope (Acute) Hypokalemia (Acute) Hypomagnesemia (Acute) Fever (Acute) COVID-19 (Acute) Impingement of right shoulder (Acute) Dyspnea on exertion (Acute) CAD (coronary artery disease) (Acute) Depressed (Acute) Polymyalgia rheumatica (Acute) SOB (shortness of breath) (Acute) Enlarged RV (right ventricle) (Acute) Transient atrial fibrillation (Acute) Bronchitis (Acute) Right rotator cuff tendinitis (Acute) 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-inflammatories (nsaid) (Acute) Osteoarthritis of hands, bilateral (Acute) Osteoarthritis of knees, bilateral (Acute) Osteoporosis (Acute) MCFP systemic steroid user (Acute) Past Medical History Medical History Dyspnea on exertion Bronchitis Hyperlipidemia Hypertension Polymyalgia rheumatica Family History Family History Mother CHF (congestive heart failure) Family history of problems with anesthesia: No Surgical History Surgical History Hx of cholecystectomy Hx of hysterectomy History of Problems with Anesthesia: No Social History Social History Household Members: Spouse Housing: House Do you presently have visiting nurse or other home services: No Alcohol intake: current Alcohol intake frequency: holidays/special occasions only Patient Tobacco Use Status: Former Tobacco user Tobacco use type: Cigarette Cigarettes Per Day: 15 Years Smoked: 4 e-Cigarette/Vaping Use: Never Used Second Hand Smoke Exposure: No Substance Use Type: Marijuana Advance Directives Date on File: 11/24/23 service: No Current occupational status: retired Meds Allergies Allergy/AdvReac Type Severity Reaction Status Date / Time naproxen [NAPROXEN] Allergy Intermediate BLISTERS Verified 02/07/25 16:02 IN MOUTH Sulfa (Sulfonamide Allergy Intermediate BLISTERS Verified 02/07/25 16:02 Antibiotics) ON TONGUE [SULFA (SULFONAMIDE ANTIBIOTICS)] Active Medications: Current Medications Acetaminophen (Acetaminophen 325 Mg Tablet) 650 mg PO Q6H PRN PRN Reason: Pain, Mild 1-3,fever,headache Albuterol Sulfate (Albuterol Sulfate 90 Mcg 8 Gm Inhaler) 2 puff INHALE Q6H PRN PRN Reason: Shortness Of Breath Or Wheezing Calcium Carbonate (Calcium Carbonate 750 Mg Tab.Chew) 750 mg PO Q4H PRN PRN Reason: Heartburn Fluticasone Propionate (Fluticasone Propionate Nasal 16 Gm [place]) 1 spray NOSTRIL-B DAILY PRN PRN Reason: Allergy Symptoms Folic Acid (Folic Acid 1 Mg Tablet) 1 mg PO DAILY [facility] Last Admin: 02/08/25 07:48 Dose: Not Given Hydromorphone HCl (Hydromorphone Hcl 1 Mg/Ml Syringe) 1 mg IVPUSH Q4H PRN; Protocol PRN Reason: Pain, Severe (Pain Scale 7-10) Last Admin: 02/08/25 11:43 Dose: 1 mg Lactated Ringer's (Lr) 1,000 mls @ 100 mls/hr IVCONT .Q10H [facility] Stop: 02/08/25 16:29 Last Admin: 02/08/25 09:06 Dose: 100 mls/hr Levothyroxine Sodium (Levothyroxine Sodium 25 Mcg Tablet) 25 mcg PO DAILY@0600 [facility] Last Admin: 02/08/25 07:48 Dose: Not Given Loratadine (Loratadine 10 Mg Tablet) 10 mg PO DAILY PRN PRN Reason: Allergy Symptoms Magnesium Hydroxide (Milk Of Magnesia 30 Ml Oral.Susp) 30 ml PO DAILY PRN PRN Reason: Constipation Magnesium Oxide (Magnesium Oxide 400 Mg Tablet) 400 mg PO DAILY [facility] Last Admin: 02/08/25 07:48 Dose: Not Given Melatonin (Melatonin 3 Mg Tablet) 6 mg PO BEDTIME PRN PRN Reason: Insomnia Metoprolol Tartrate (Metoprolol Tartrate 12.5 Mg Halftab) 12.5 mg PO BID [facility]; Protocol Last Admin: 02/08/25 07:43 Dose: 12.5 mg Omeprazole (Omeprazole 20 Mg Capsule.Dr) 20 mg PO DAILY@0630 [facility] Ondansetron HCl (Ondansetron Hcl 4 Mg/2 Ml Vial) 4 mg IVPUSH Q8H PRN PRN Reason: Nausea and Vomiting Potassium Chloride (Potassium Chloride Er 10 Meq Tablet.Er) 10 meq PO DAILY [facility] Last Admin: 02/08/25 07:43 Dose: 10 meq Sertraline HCl (Sertraline Hcl 25 Mg Tablet) 25 mg PO BEDTIME [facility] Sodium Chloride (0.9 % Sodium Chloride Flush 3 Ml Syringe) 3 ml IVFLUSH QSHIFT [facility] Last Admin: 02/08/25 07:42 Dose: 3 ml Tramadol HCl (Tramadol Hcl 50 Mg Tablet) 25 mg PO BID [facility] Last Admin: 02/08/25 07:43 Dose: 25 mg Vitamin D (Cholecalciferol (Vitamin D3) 25 Mcg Tablet) 25 mcg PO DAILY [facility] Last Admin: 02/08/25 07:48 Dose: Not Given Home Medications ?Medication ?Instructions ?Recorded ?Confirmed ?Last Taken ?Type fexofenadine 180 mg tablet 180 mg PO DAILY PRN Allergy 04/13/21 02/07/25 11/18/23 History Symptoms fluticasone propionate 50 1 spray intranasal DAILY PRN 04/13/21 02/07/25 11/18/23 History mcg/actuation nasal Allergy Symptoms spray,suspension (Allergy Relief (fluticasone)) omeprazole 20 mg capsule,delayed 20 mg PO DAILY@0630 04/13/21 02/07/25 02/06/25 History release simvastatin 20 mg tablet 20 mg PO DAILY 04/13/21 02/07/25 02/06/25 History folic acid 1 mg tablet 1 mg PO DAILY 11/28/22 02/07/25 02/06/25 History cholecalciferol (vitamin D3) 25 25 mcg PO DAILY 12/07/22 02/07/25 02/06/25 History mcg (1,000 unit) tablet (Vitamin D3) magnesium oxide 400 mg (241.3 mg 400 mg PO DAILY 12/07/22 02/07/25 02/06/25 History magnesium) tablet levothyroxine 25 mcg tablet 25 mcg PO DAILY@0600 03/31/23 02/07/25 02/07/25 History potassium chloride 10 mEq 10 meq PO DAILY 03/31/23 02/07/2525 History tablet,extended release acetaminophen 500 mg tablet 1,000 mg PO BID PRN Pain 02/07/25 02/07/25 02/06/25 History albuterol sulfate 90 mcg/actuation 2 puff inhalation Q6H PRN 02/07/25 02/07/25 Unknown History aerosol inhaler Shortness Of Breath Or Wheezing hydrochlorothiazide 25 mg tablet 25 mg PO DAILY 02/07/25 02/07/25 02/06/25 History metoprolol tartrate 25 mg tablet 12.5 mg PO BID 02/07/25 02/07/25 02/06/25 History sertraline 25 mg tablet 25 mg PO BEDTIME 02/07/25 02/07/25 02/06/25 History Exam Height,Weight and Vital Signs: Height 5 ft 6 in Weight 148 lb 12.992 oz Last Vital Signs Temp 98.5 F 02/08/25 15:00 Pulse 94 02/08/25 15:05 Resp 16 02/08/25 15:05 BP 154/75 H 02/08/25 15:05 Pulse Ox 98 02/08/25 15:05 O2 Del Method Nasal Cannula 02/08/25 15:05 O2 Flow Rate 3 02/08/25 15:05 Pertinent Lab Results Pertinent Lab Results: Laboratory Tests 02/07/25 02/08/25 17:08 05:29 WBC 10.5 14.7 H RBC 4.51 4.13 L Hgb 13.9 12.9 Hct 40.5 37.7 MCV 89.8 91.3 MCH 30.8 31.2 MCHC 34.3 34.2 RDW 12.4 12.3 Plt Count 247 258 MPV 10.3 10.5 Immature Gran % (Auto) 0.5 H 0.8 H Neut % (Auto) 78.5 H 84.1 H Lymph % (Auto) 13.7 L 8.1 L [place] % (Auto) 6.2 6.3 Eos % (Auto) 0.8 0.5 Baso % (Auto) 0.3 0.2 Lymph # (Auto) 1.4 1.2 [place] # (Auto) 0.7 0.9 Eos # (Auto) 0.1 0.1 Baso # (Auto) 0.0 0.0 Abs Immat Gran (auto) 0.05 H 0.12 H Absolute Neuts (auto) 8.3 12.4 H Absolute Nucleated RBC 0.000 0.000 Nucleated RBC % (auto) 0.0 0.0 PT 11.8 INR 1.0 APTT 29.9 Sodium 141 141 Potassium 3.2 L 3.4 Chloride 101 103 Carbon Dioxide 23 27 Anion Gap 20 14 BUN 17 H 14 Creatinine 0.81 0.67 Estim Creat Clear Calc 50.1 60.5 Estimated GFR > 60 > 60 Random Glucose 98 109 Calcium 9.7 9.1 D Magnesium 1.6 Total Bilirubin 0.4 AST 21 ALT < 6 Alkaline Phosphatase 60 Troponin I High Sens 4.7 D Total Protein 6.6 Albumin 3.9 Lipase 17 Influenza Type A (PCR) NEGATIVE Influenza Type B (PCR) NEGATIVE RSV RNA Qual (PCR) NEGATIVE SARS-CoV-2 RNA (RT-PCR) NEGATIVE Blood Type A Positive Antibody Screen NEGATIVE Airway Mallampati Class: II TM Dist: >3cm Neck ROM: Full Loose/Missing/Broken Teeth: Yes Assessment and Plan Assessment Anesthesia Assessment: Anesthesia Plan Discussed and Chart Reviewed Final Anesthetic Review Family History of Problems with Anesthesia: No History of Problems with Anesthesia: No NPO: Yes ASA Class: III Final Preanesthetic Review: No Changes in Pt Med Stat, Meds/Allgs Chart Reviewed, Consent Obtained/Reviewed and Anes Risks/Benef Reviewed Patient Risk: Intermediate Procedure Risk: Low Anesthetic Plan Anesthetic Plan: GA Disposition: Standard PACU
--- NOTE | 2025-02-08 18:20 | PC.NURSE ---
Pt oob to commode , 2 assist , pt voiding small amounts at a time , Pt also incontinent in brief . Pt states pain tolerable.
[2025-02-08 18:22] LABS: Appearance Urine Turbid; Color Urine Yellow; Glucose Urine UA Negative (Negative); Leukocyte Esterase Urine Small (1+) (Negative); Nitrite Urine Positive (Negative); Specific Gravity - Urine >= 1.030 (1.005-1.025); UMIC TRIGGER UACC YES; Urine Blood Moderate (2+) (Negative); Urine Ketones Trace mg/dL (Negative); Urine Protein 100 (2+) mg/dL (Neg-Trace)
[2025-02-08 19:10] LABS: Bacteria Urine 3+ (None Seen); UACC Culture Trigger YES; WBC Clumps Urine Present; WBC Urine >50 /HPF (0-5)
[2025-02-08] MEDS: ceFAZolin Sodium/Dextrose,Iso 2 GM/50 ML PIGGYBACK IV (19:42)
[2025-02-08] MEDS: Sertraline HCL 25 MG TABLET PO (19:42)
[2025-02-08] MEDS: Melatonin 3 MG TABLET 6 MG PO (19:43)
[2025-02-08] MEDS: Acetaminophen 325 MG TABLET 650 MG PO (19:43)
[2025-02-08] MEDS: oxyCODONE HCl Immed Release 5 MG TABLET PO (19:45)
[2025-02-09 03:42] VITALS: BP 139/63; PULSE 68; RESP 18; TEMP 36.7; O2SAT 98
[2025-02-09] MEDS: Acetaminophen 325 MG TABLET 650 MG PO (03:47)
[2025-02-09] MEDS: oxyCODONE HCl Immed Release 5 MG TABLET PO ×3 (03:47→13:27)
[2025-02-09] MEDS: ondansetron HCL 4 MG/2 ML VIAL IVPUSH (04:52)
[2025-02-09] MEDS: Omeprazole 20 MG CAPSULE.DR PO (04:59)
[2025-02-09] MEDS: Levothyroxine Sodium 25 MCG TABLET PO (04:59)
[2025-02-09 06:34] LABS: MANUAL DIFF FLAG NO
[2025-02-09 06:36] LABS: Basophils Percent Auto 0.2 % (0-2); Eosinophils Percent Auto 0.1 % (0-4); Hematocrit 31.3 % (37.0-47.0); Imm Gran Abs Auto 0.08 X10*3/uL (0.00-0.03); Imm Gran Pct Auto 0.5 % (0.0-0.4); Lymphocytes Absolute Auto 1.2 X10*3/uL (1.2-4.9); Lymphocytes Percent Auto 7.7 % (20-40); Mean Corpuscular HGB Conc 35.1 g/dl (31.0-35.0); Mean Corpuscular Hemoglobin 31.9 pg (27.0-33.0); Mean Corpuscular Volume 90.7 fL (80.0-98.0); Mean Platelet Volume 10.5 fL (9.4-12.3); Monocytes Percent Auto 6.8 % (2-11); Neutrophils Absolute Auto 12.8 x10*3/uL (2.0-8.3); Neutrophils Percent Auto 84.7 % (45-73); Platelet Count 232 X10*3/uL (160-400); Red Blood Count 3.45 X10*6/uL (4.20-5.50); Red Cell Distribution Width 12.8 % (11.0-16.0); White Blood Count 15.1 X10*3/uL (4.8-10.8)
[2025-02-09 06:53] LABS: Anion Gap 14 (12-20); Blood Urea Nitrogen 20 mg/dL (9-16); Calcium 8.5 mg/dL (8.4-10.2); Carbon Dioxide 26 mmol/L (22-29); Chloride 102 mmol/L (96-108); Creatinine Clr Calc Pharmacy 56.4; Estimated Glomerular Filt Rate > 60; Glucose Fasting 129 mg/dL (60-99); Sodium 138 mmol/L (135-145)
[2025-02-09] MEDS: 0.9 % Sodium Chloride Flush 3 ML SYRINGE IVFLUSH (07:07)
--- NOTE | 2025-02-09 07:34 | PM.PNORT ---
Subjective Subjective Date of Service: 02/09/25 Interval history: POD1 s/p rt hip IM Nail Patient is resting in bed comfortably No overnight events Pain is managed No additional complaints Physical Exam Vital Signs: Vital Signs: Last Vital Signs Temp 98.0 F 02/09/25 03:42 Pulse 68 02/09/25 03:42 Resp 18 02/09/25 03:42 BP 139/63 02/09/25 03:42 Pulse Ox 98 02/09/25 03:42 O2 Del Method Room Air 02/09/25 03:42 O2 Flow Rate 2 02/08/25 19:26 BMI result Body Mass Index 24.0 Const: General: cooperative, healthy appearing and no acute distress Resp: Effort & Inspection: normal respiratory effort and able to speak in complete sentences Cardio: Rate: regular rate Peripheral pulses: Peripheral pulses 2+ throughout GI: Palpation (GI): Soft to palpation Skin: Lesions: no lesions Rashes: no rashes Extrem: Other: right hip dressing is c/d/i. Able to dorsi/plantar flex. Calf is supple and nontender. Sensation intact. Pedal pulse intact. Procedures Date of Service Date of Service: 02/09/25 Progress Note: A&P Assessment and plan (1) Closed intertrochanteric fracture of right femur: Status: Acute Plan Continue pain mgmnt Begin Lovenox for dvt ppx begin PT/OT for right hip IM Nail - WBAT Dispo planning- PT eval, pain mgmnt, Ready for d/c once medically cleared Time Spent With Patient Time: Total time managing care of this patient today ____ minutes. Quality Stroke Does the patient have a stroke diagnosis?: No VTE Prior VTE?: No VTE Risk Level:: Medical - moderate - high VTE Device Contraindication: N/A - Device Ordered VTE Drug Contraindication: Treatment Not Indicated
[2025-02-09] MEDS: Metoprolol Tartrate 12.5 MG HALFTAB PO (07:53)
[2025-02-09] MEDS: Cholecalciferol (Vitamin D3) 25 MCG TABLET PO (07:53)
[2025-02-09] MEDS: Magnesium Oxide 400 MG TABLET PO (07:53)
[2025-02-09] MEDS: traMADoL HCL 50 MG TABLET 25 MG PO (07:53)
[2025-02-09] MEDS: Folic Acid 1 MG TABLET PO (07:53)
[2025-02-09] MEDS: Potassium Chloride ER 10 MEQ TABLET.ER PO (07:53)
[2025-02-09 08:00] VITALS: BP 106/62; PULSE 87; RESP 18; TEMP 36; O2SAT 95
--- NOTE | 2025-02-09 09:00 | HO.POSTANES ---
Post Anesthesia Evaluation Post Anesthesia Evaluation Date of Service: 02/09/25 Vital Signs: Vital Signs Temp Pulse Resp BP Pulse Ox O2 Del Method 02/09/25 08:00 96.8 F 87 18 106/62 95 Room Air 02/09/25 03:42 98.0 F 68 18 139/63 98 Room Air 02/08/25 23:25 97.0 F 90 18 141/64 H 94 Room Air Anesthesia: General LMA Mental Status: Awake Pain Control: Satisfactory Nausea/Vomiting: None Hydration: Adequate Anesthesia-Related Issues: No Anes. Related Issues
--- NOTE | 2025-02-09 11:12 | PM.PNORT ---
Subjective Subjective Date of Service: 02/09/25 Interval history: Postop day 1 status post right hip IM nail Patient resting comfortably in bed this morning No acute events overnight Pain well managed No other acute complaints or concerns at this time Physical Exam Vital Signs: Vital Signs: Last Vital Signs Temp 96.8 F 02/09/25 08:00 Pulse 87 02/09/25 08:00 Resp 18 02/09/25 08:00 BP 106/62 02/09/25 08:00 Pulse Ox 95 02/09/25 08:00 O2 Del Method Room Air 02/09/25 08:00 O2 Flow Rate 2 02/08/25 19:26 BMI result Body Mass Index 24.0 Extrem: Other: Dressing on right hip clean, dry, intact No evidence of surrounding erythema, ecchymosis No evidence of infection Patient is able to flex and extend the digits of the left foot without difficulty Compartments soft, nontender Distal sensation intact Capillary refill brisk Procedures Date of Service Date of Service: 02/09/25 Progress Note: A&P Assessment and plan (1) Closed intertrochanteric fracture of right femur: Status: Acute Plan 1. Status post right hip IM nail Continue pain management The in Lovenox for DVT prophylaxis x6 weeks Continue PT/OT Keep dressings clean, dry, intact Dispo planning-PT/OT recommendations, medical clearance, rehab placement Continue with all other recommendations per Medicine Time Spent With Patient Time: Total time managing care of this patient today ____ minutes. Quality Stroke Does the patient have a stroke diagnosis?: No VTE Prior VTE?: No VTE Risk Level:: Medical - moderate - high VTE Device Contraindication: N/A - Device Ordered VTE Drug Contraindication: Treatment Not Indicated
[2025-02-09 12:00] VITALS: BP 136/63; PULSE 87; RESP 16; TEMP 36; O2SAT 93
--- NOTE | 2025-02-09 12:21 | P.DS_ITS ---
DS: Providers Provider Date of Service: 02/09/25 Date of admission: 02/07/25 18:55 Date of discharge: 02/09/25 Primary care physician: None Physician Consults: 02/07/25 19:08 Consult to Orthopedics Routine Consulting Provider: [facility] Orthopedic Surgeons Reason for consultation: right hip fracture Attending physician on discharge: Briana Spear Discharging clinician: Briana Spear DS: Diagnosis Discharge Diagnosis (1) Closed intertrochanteric fracture of right femur: Status: Acute DS: Summary Hospital Course Hospital Course: HPI:84-year-old female with pertinent history of hypertension, mixed hyperlipidemia, polymyalgia rheumatica, osteoarthritis, hypothyroidism, mood disorder, gastroesophageal reflux disease, COPD not on home oxygen who presents to the emergency department for evaluation after a fall. Patient states she was wearing sandals and her right toe got caught in the door while she was entering the house and she tripped and fell. Did not lose consciousness prior to the fall. No dizziness or lightheadedness prior to the fall. No chest pain or palpitations prior to the fall. No rhythmic jerking movement of extremities. Patient complaining of severe right pain since the fall which is worse with movement. No fever, chills, shortness of breath, abdominal pain, changes in urinary or bowel habits. In the emergency department, imaging with comminuted intertrochanteric and subtrochanteric fracture of the proximal right femur. Hospital course: 84-year-old female with pertinent history of hypertension, mixed hyperlipidemia, polymyalgia rheumatica, osteoarthritis, hypothyroidism, mood disorder, gastroesophageal reflux disease, COPD not on home oxygen who presents to the emergency department for evaluation after a fall: Patient was given pain medications, orthopedic surgery was consulted for hip fracture, in addition patient had mild hypokalemia which was repleted and resolved. mild leukocytosis: Reactive patient denies any respiratory or abdominal or urinary complaints or any new symptoms, monitor CBC outpatient. Patient is status post right hip IM nail: Pain seems improving, seen by ortho and PT recommended rehab placement, in addition Lovenox for DVT prophylaxis for 6 week. plan: pain control with oxycodone and tylenol. bowel regimen with colace and senna. moniter cbc and bmp in 1 week. Lovenox for DVT prophylaxis for 6 week. ortho outpatient followup. Above management discussed with the patient and spouse in detail length at bedside- they understand and in agreement with the above plan, time spent 40 minute. Time Attestation Total time managing care of this patient today: 40 mintues. Discharge Coordination Time (in mins): 40 min Quality: Safe Use of Opioids Does Pt have an Active Cancer Diagnosis on the Problem List?: No Quality: Stroke Does the patient have a stroke diagnosis?: No Physical Exam Vital Signs: Vital Signs: Last Vital Signs Temp 96.8 F 02/09/25 08:00 Pulse 87 02/09/25 08:00 Resp 18 02/09/25 08:00 BP 106/62 02/09/25 08:00 Pulse Ox 95 02/09/25 08:00 O2 Del Method Room Air 02/09/25 08:00 O2 Flow Rate 2 02/08/25 19:26 BMI result Body Mass Index 24.0 Appearance: Alert.? Oriented X3.. cvs: rrr, [id number] . res: clear to auscultation ,no rhonchii or wheezing abd: no rebound or guarding ,nt, bs present. skin:right hip:Dressing on right hip clean, dry, intact No evidence of surrounding erythema, ecchymosis DS: Data Data Completed and Pending Labs on day of discharge: Laboratory Results - last 24 hr 02/08/25 02/09/25 18:15 06:04 WBC 15.1 H RBC 3.45 L Hgb 11.0 L Hct 31.3 L MCV 90.7 MCH 31.9 MCHC 35.1 H RDW 12.8 Plt Count 232 MPV 10.5 Immature Gran % (Auto) 0.5 H Neut % (Auto) 84.7 H Lymph % (Auto) 7.7 L [place] % (Auto) 6.8 Eos % (Auto) 0.1 Baso % (Auto) 0.2 Lymph # (Auto) 1.2 [place] # (Auto) 1.0 Eos # (Auto) 0.0 Baso # (Auto) 0.0 Abs Immat Gran (auto) 0.08 H Absolute Neuts (auto) 12.8 H Absolute Nucleated RBC 0.000 Nucleated RBC % (auto) 0.0 Sodium 138 Potassium 4.0 Chloride 102 Carbon Dioxide 26 Anion Gap 14 BUN 20 H Creatinine 0.72 Estim Creat Clear Calc 56.4 Estimated GFR > 60 Fasting Glucose 129 H Calcium 8.5 D Urine Color Yellow Urine Appearance Turbid Urine pH 6.0 Ur Specific [place] >= 1.030 H Urine Protein 100 (2+) H Urine Glucose (UA) Negative Urine Ketones Trace Urine Blood Moderate (2+) H Urine Nitrite Positive H Ur Leukocyte Esterase Small (1+) H Urine RBC 3-5 H Urine WBC >50 H Urine WBC Clumps Present Ur Squamous Epith Cells 6-10 Urine Bacteria 3+ Hyaline Casts 3-5 Imaging Chest x-ray: Radiologist's impression: ITS Impressions Guidance Fluoroscopy 02/08/25 13:50 IMPRESSION: Fluoroscopy during procedure. Please see procedure report for additional information. Electronically signed by: Gary Milan MD 02/09/2025 09:56 AM EDT RP Discharge Plan Discharge Anticipated Discharge Date/Time: 02/09/25 12:09 Patient Disposition: Xfer [facility] Discharge Diagnosis: hip fracture Referrals: VINI SALEHDOWS [Other] - 1 Week Sasha Douglas PA-C [Physician Service Worker Helper] - 02/25/25 2:00 pm (02/25/25 at 2pm) Physician,Jane [Primary Care Provider] - 1 Week Discharge Medications: New enoxaparin 40 mg/0.4 mL Syringe 40 mg subcut Q24H Qty: 1 0RF oxycodone 5 mg Tablet 5 mg PO Q4H PRN (Reason: Pain, Moderate(Pain Scale 4-6)) Qty: 20 0RF Rx Instructions: Partial Fill upon patient request. docusate sodium [Colace] 100 mg capsule 100 mg PO BID PRN (Reason: constipation) Qty: 30 0RF senna 8.6 mg capsule 8.6 mg PO BID Qty: 30 0RF Continued magnesium oxide 400 mg (241.3 mg magnesium) Tablet 400 mg PO DAILY cholecalciferol (vitamin D3) [Vitamin D3] 25 mcg (1,000 unit) Tablet 25 mcg PO DAILY acetaminophen 500 mg Tablet 1,000 mg PO BID PRN (Reason: Pain) albuterol sulfate 90 mcg/actuation Hfa Aerosol Inhaler 2 puff INHALATION Q6H PRN (Reason: Shortness Of Breath Or Wheezing) sertraline 25 mg tablet 25 mg PO BEDTIME hydrochlorothiazide 25 mg tablet 25 mg PO DAILY metoprolol tartrate 25 mg tablet 12.5 mg PO BID omeprazole 20 mg capsule,delayed release(DR/EC) 20 mg PO DAILY@0630 fexofenadine 180 mg tablet 180 mg PO DAILY PRN (Reason: Allergy Symptoms) fluticasone propionate [Allergy Relief (fluticasone)] 50 mcg/actuation spray,suspension 1 spray intranasal DAILY PRN (Reason: Allergy Symptoms) Rx Instructions: administer into each nostril simvastatin 20 mg tablet 20 mg PO DAILY folic acid 1 mg tablet 1 mg PO DAILY levothyroxine 25 mcg tablet 25 mcg PO DAILY@0600 potassium chloride 10 mEq tablet extended release 10 meq PO DAILY (DME) TLSO See Rx Instructions .Route .MEDSUPPLY Qty: 1 0RF Rx Instructions: Topaz TLSO or other comparable orthotic tramadol 50 mg tablet 25 mg PO BID Qty: 30 0RF Discharge Orders: Discharge Order (Routine); Ordered 02/09/25 Ordered By: Briana Spear Activity on Discharge: Use cane or walker Stand Alone Forms: Patient Portal Discharge page Print Language: Welsh Activity Restrictions/Additional Instructions: Gait training, strengthening, ADLs Continue Lovenox for dvt ppx x 6 weeks Keep dressing clean, dry and intact-no showering or tub baths Follow up with Orthopedics in 2 weeks Care Plan Goals: 84-year-old female with pertinent history of hypertension, mixed hyperlipidemia, polymyalgia rheumatica, osteoarthritis, hypothyroidism, mood disorder, gastroesophageal reflux disease, COPD not on home oxygen who presents to the emergency department for evaluation after a fall: Patient was given pain medications, orthopedic surgery was consulted for hip fracture, in addition patient had mild hypokalemia which was repleted and resolved. mild leukocytosis: Reactive patient denies any respiratory or abdominal or urinary complaints or any new symptoms, monitor CBC outpatient. Patient is status post right hip IM nail: Pain seems improving, seen by ortho and PT recommended rehab placement, in addition Lovenox for DVT prophylaxis for 6 week. Health Concerns: pain control with oxycodone and tylenol. moniter cbc and bmp in 1 week. Lovenox for DVT prophylaxis for 6 week. ortho outpatient followup Plan of Treatment: as above. Assessment: as above.
--- NOTE | 2025-02-09 12:24 | MHC.CM.PN ---
PT S NOTIFIED OF DC TODAY AT 2
[2025-02-09] MEDS: Enoxaparin Sodium 40 MG/0.4 ML SYRINGE SUBCUT (13:26)
== END 2025-02-09 14:37 | disposition skilled nursing facility (03) | DRG 482 ==
LOC: HO.ED 18:21 → HO.EDOVER 19:02 → HO.S3 02-08 00:19
PROVIDERS: Orthopaedic Surgery; Physician Assistant; Admitting Provider Student in an Organized Health Care Education/Training Program; Emergency Provider Emergency Medicine Emergency Medical Services; Visit Provider Internal Medicine
PROC: 0QS606Z Reposition Right Upper Femur with Intramedullary Internal Fixation Device, Open Approach (ICD-10-PCS; principal; 2025-02-08 12:50)
DX: S72.141A Displaced intertrochanteric fracture of right femur, initial encounter for closed fracture (principal); W19.XXXA Unspecified fall, initial encounter; E03.9 Hypothyroidism, unspecified; E87.6 Hypokalemia; F39 Unspecified mood [affective] disorder; M35.3 Polymyalgia rheumatica; E78.2 Mixed hyperlipidemia; Z20.822 Contact with and (suspected) exposure to COVID-19; Z87.891 Personal history of nicotine dependence; Z79.890 Hormone replacement therapy; Z79.899 Other long term (current) drug therapy
CPT/HCPCS: 0241U; 36415; 70450; 71045; 72125; 73502; 80048; 80053; 81001; 83690; 83735; 84484; 85025; 85610; 85730; 86850; 86900; 86901; 87086; 87088; 87186; 93005; 97162; 97166; 99285; C1713; J0690; J1171; J1650; J2003; J2270; J2405; J2704; J2795; J3010; J7120

== ENCOUNTER → 2025-02-07 16:18 | Outpatient (BNV) | payer MEDICARE, SELFPAY | PROVIDERS: Admitting Provider Student in an Organized Health Care Education/Training Program; Emergency Provider Emergency Medicine Emergency Medical Services; Visit Provider Internal Medicine Cardiovascular Disease | DX: I49.3 Ventricular premature depolarization (principal) | CPT/HCPCS: 93010 ==

== ENCOUNTER → 2025-02-07 16:45 | Outpatient (BNV) | payer MEDICARE, SELFPAY | PROVIDERS: Emergency Provider Emergency Medicine Emergency Medical Services; Visit Provider Radiology Diagnostic Radiology | DX: M54.2 Cervicalgia (principal); S09.90XA Unspecified injury of head, initial encounter; S72.141A Displaced intertrochanteric fracture of right femur, initial encounter for closed fracture; S72.21XA Displaced subtrochanteric fracture of right femur, initial encounter for closed fracture; W19.XXXA Unspecified fall, initial encounter; R26.81 Unsteadiness on feet | CPT/HCPCS: 70450; 71045; 72125; 73502 ==

== ENCOUNTER → 2025-02-07 18:55 | Outpatient (BNV) | payer MEDICARE, SELFPAY | PROVIDERS: Admitting Provider Student in an Organized Health Care Education/Training Program; Emergency Provider Emergency Medicine Emergency Medical Services; Visit Provider Physician Assistant | DX: S72.141A Displaced intertrochanteric fracture of right femur, initial encounter for closed fracture (principal) | CPT/HCPCS: 27245; 99222 ==

== ENCOUNTER → 2025-02-07 18:55 | Outpatient (BNV) | payer MEDICARE, SELFPAY | PROVIDERS: Admitting Provider Student in an Organized Health Care Education/Training Program; Emergency Provider Emergency Medicine Emergency Medical Services; Visit Provider Student in an Organized Health Care Education/Training Program | DX: S72.141A Displaced intertrochanteric fracture of right femur, initial encounter for closed fracture (principal) | CPT/HCPCS: 99232 ==

== ENCOUNTER 2025-02-25 12:30 | Outpatient (REF) | payer MEDICARE, SELFPAY ==
--- NOTE | ~2025-02-25 | XR_ITS ---
EXAMINATION: XR FEMUR, RIGHT CLINICAL INFORMATION: S72.141A - Displaced intertrochanteric fracture of right femur, initial ... COMPARISON: 02/07/2025. TECHNIQUE: AP and lateral views of the right femur were obtained. FINDINGS: There has been internal fixation and reduction of a comminuted right intertrochanteric fracture, with intramedullary mark, and femoral head compression screw. There has been uatsdin of anatomic alignment of the right hip joint. Fracture lines are still well seen without definite healing identified at this time. No periprosthetic complication. There are skin negra laterally fold superiorly and inferiorly. There are vascular calcifications in the soft tissues. XR/XR femur RT 2V IMPRESSION: ORIF of comminuted intertrochanteric right hip fracture with uatsdin of anatomic alignment. Electronically signed by: Clifford Segovia MD 02/25/2025 02:33 PM EDT
--- OUTSIDE RECORDS SUMMARY | 2025-02-28 12:52 | XMS_ITS ---
Author Organization [facility] Address [address] [place] [address] Care Team Providers Care Assistant Family Teacher Name Role Phone Ismael Davis MD Primary Care Provider Kaiser Cerna [phone] REASON FOR VISIT Last PCP Visit: 04/26/24, Ingrown nail(s) Medications Medication SIG (Take, Route, Frequency, Duration) Notes Start Date End Date Status Voltaren 1 % as directed Externally Active Night Splint AFO - L1930 as directed Active Problems Problem Type SNOMED Code ICD Code Onset Dates Problem Status W/U Status Risk Notes Problem Plantar fascial fibromatosis (46710685) 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 Encounters Encounter Location Date Provider Diagnosis [facility] [address] [place] [address] 08/05/2024 Kaiser Riddle Tinea unguium B35.1 ; [...] * Vero CONNELLYDOB: [birth year] (84 yo F)Acc No.[id number]:08/05/2024 Progress Note Patient:?Vero CONNELLY Provider:?Kaiser Riddle DPM :1940???Age:83 Y???Sex:Female D ate:08/05/2024 Address: [address], [facility] Pcp:Ismael Davis MD Subjective: * Chief Complaints: [...] surgical procedures to prevent recurrence.? * Procedure Codes:?43339 Avuls ion Plate, Modifiers: T1 * Follow Up:?3 Months * Images: * The named appointment provid er may or may not be the originator of this progress note, and it is not deemed complete until electronically signed by the appointment provider. Sign off status: Pending * Provider:Alexander Riddle DPM Date:? 024 Generated for Astrid mello/Jason/Rhett on:?02/28/2025 12:51 PM EDT History and Physical Notes * [...]
--- OUTSIDE RECORDS SUMMARY | 2025-02-28 12:52 | XMS_ITS | Encounter Summary ---
Author Organization [facility] Address [address] [place] [address] Care Team Providers Care Geophysical Prospecting Permit Agent Name Role Phone Jeronimo Norris MD Primary Care Provider [phone] Encounter Details Date Type Department Care Team (Late st Contact Info) Description 02/16/2025 Lab Requisition [facility] - Main Lab [address] [facility] [place] [address] Jeronimo Norris MD [address] [place] [address] Essential (primary) hypertension; Gastro-esophageal reflux [...] mmol/L LAB CHEMISTRY METHOD 02/17/2025 10:00 AM [facility] LAB Potassium 4.1 3.5 - 5.5 mmol/L LAB CHEMISTRY METHOD 02/17/2025 10:00 AM [facility] LAB Chloride 104 96 - 110 mmol/L LAB CHEMISTRY METHOD 02/17/2025 10:00 AM [facility] LAB CO2 29 21 - 32 mmol/L LAB CHEMISTRY METHOD 02/17/2025 10:00 AM [facility] LAB Anion Gap 6 3 - 11 LAB CHEMISTRY METHOD 02/17/2025 10:00 AM [facility] LAB Glucose 79 70 - 100 mg/dL LAB CHEMISTRY METHOD 02/17/2025 10:00 AM [facility] LAB BUN 19 5 - 25 mg/dL LAB CHEMISTRY METHOD 02/17/2025 10:00 AM [facility] LAB Creatinine 0.41(L) 0.50 - 1.10 mg/dL LAB CHEMISTRY METHOD 02/17/2025 10:00 AM [facility] LAB eGFR 98 >=60 mL/min/1. 73m2 LAB CHEMISTRY METHOD 02/17/2025 10:00 AM [facility] LAB Comment:Calculation based on the Chronic Kidney Disease Epidemiology Collaboration (CKD-EPI) equation refit without adjustment for race. BUN/Creatinine Ratio 46.3 LAB CHEMISTRY METHOD 02/17/2025 10:00 AM [facility] LAB Calcium 8.7 8.5 - 10.5 mg/dL LAB CHEMISTRY METHOD 02/17/2025 10:00 AM [facility] LAB Blood Venous blood specimen / Unknown Venipuncture / Unknown 02/17/2025 6:11 AM EDT 02/17/2025 8:50 AM EDT us Jeronimo Norris MD LAB BLOOD ORDERABLES Final Resu lt [facility] [address] [place] [address], * (ABNORMAL) Complete blood count (02/17/2025 6:11 AM EDT) [facility] WBC 8.3 4.8 - 10.8 K/mcL LAB HEMETOLOGY METHOD 02/17/2025 9:03 AM EDT [facility] RBC 2.90(L) 3.80 - 4.80 M/mcL LAB HEMETOLOGY METHOD 02/17/2025 9:03 AM EDT [facility] Hemoglobin 9.2(L) 11.5 - 16.0 g/dL LAB [facility]OLOG[facility] Hematocrit 28.0(L) 35.0 - 47.0 % LAB HEMETOLOGY METHOD 02/17/2025 [facility] MCV 95.6 79.0 - 98.0 FL LAB HEMETOLOGY METHOD 02/17[facility]2025 9[facility] MCH 31.4 27.0 - 32.0 pcg LAB HEMETOLOGY METHOD 02/17/2025 9:03 AM [facility] MCHC 32.9 32.0 - 37.0 g/dL LAB HEMETOLOGY METHOD 02/17/2025 [facility] RDW 13.6 11.0 - 15.0 % LAB HEMETOLOGY METHOD 02/17/2025 9[facility] Platelets 403(H) 130 - 400 K/mcL LAB HEMETOLOGY METHOD 02/17/2025 9[facility] MPV 10.4 7.0 - 11.0 FL LAB HEMETOLOGY METHOD 02/17/2025 9:03 AM EDT [facility] NRBC 0.0 <1.0 % LAB HEMETOLOGY METHOD 02/17/2025 9:03 AM EDT [facility] NRBC Absolute 0.00 <0.10 K/mcL LAB HEMETOLOGY METHOD 02/17/2025 9:03 AM EDT [facility] Blood Venous blood specimen / Unknown Venipuncture / Unknown 02/17/2025 6:11 AM EDT 02/17/2025 8:50 AM EDT Jeronimo Norris MD LAB BLOOD ORDERABLES Final Resu lt [facility] [address] [place] [address], documented in this encounter Visit Diagnoses Diagnosis Essential (primary) hypertension Unspecified essential hypertension Gastro-esophageal reflux disease without esophagitis documented in this encounter Care Teams Geophysical Prospecting Permit Agent Relationship Specialty Start Date End Date Jeronimo Norris MD [address] [place] [address] PCP - General Internal Medicine 02/10/25 documented as of this encounter
--- OUTSIDE RECORDS SUMMARY | 2025-02-28 12:52 | XMS_ITS ---
Author Organization [facility] Address [address] [facility] [place] [address] Care Team Providers Care Bending Press Operator Name Role Phone Ismael Davis MD Primary Care Provider [facility] Cerna [phone] REASON FOR VISIT cx 08/05 Encounters Encounter Location Date Provider Diagnosis [facility] [address] [place] [address] 08/03/2024 [facility] R[facility] Plan Of Treatment No Information Progress Notes * Vero CONNELLYDOB: [birth year] (83 yo F)Acc No.[id number]:08/03/2024 Patient:?DarrellVero :1940???Age:83 Y???Sex:Female Address:[address], [place], [address] * true * Date:? Generated for Printi ng/Facoreyg/eTransmitting on:?02/28/2025 12:52 PM EDT
--- OUTSIDE RECORDS SUMMARY | 2025-02-28 12:52 | XMS_ITS | Encounter Summary ---
Author Organization [facility] Address [address] [place] [address] Care Team Providers Care Wood And Wood Products Factory Worker Name Role Phone Jeronimo Norris MD Primary Care Provider [phone] Encounter Details Date Type Department Care Team (Late st Contact Info) Description 02/10/2025 Lab Requisition [facility] - Main Lab 299 [facility] [address] Jeronimo Norris MD [address] [place] [address] Essential (primary) hypertension; Gastro-esophageal reflux [...] mmol/L LAB CHEMISTRY METHOD 02/10/2025 10:19 AM [facility] LAB Potassium 4.1 3.5 - 5.5 mmol/L LAB CHEMISTRY METHOD 02/10/2025 10:19 AM [facility] LAB Chloride 102 96 - 110 mmol/L LAB CHEMISTRY METHOD 02/10/2025 10:19 AM [facility] CO2 29 21 - 32 mmol/L LAB CHEMISTRY METHOD 02/10/2025 10:19 AM [facility] LAB Anion Gap 7 3 - 11 LAB CHEMISTRY METHOD 02/10/2025 10:19 AM [facility] Glucose 87 70 - 100 mg/dL LAB CHEMISTRY METHOD 02/10/2025 10:19 AM [facility] BUN 25 5 - 25 mg/dL LAB CHEMISTRY METHOD 02/10/2025 10:19 AM [facility] Creatinine 0.78 0.50 - 1.10 mg/dL LAB CHEMISTRY METHOD 02/10/2025 10:19 AM [facility] LAB eGFR 76 >=60 mL/min/1. 73m2 LAB CHEMISTRY METHOD 02/10/2025 10:19 AM [facility] LAB Comment:Calculation based on the??Chronic Kidney Disease Epidemiology Collaboration (CKD-EPI) equation refit??without adjustment for race. BUN/Creatinine Ratio 32.1 LAB CHEMISTRY METHOD 02/10/2025 10:19 AM [facility] Calcium 8.8 8.5 - 10.5 mg/dL LAB CHEMISTRY METHOD 02/10/2025 10:19 AM [facility] LAB AST (SGOT) 16 10 - 42 unit/L LAB CHEMISTRY METHOD 02/10/2025 10:19 AM [facility] ALT (SGPT) 8(L) 10 - 60 unit/L LAB CHEMISTRY METHOD 02/10/2025 10:19 AM [facility] LAB Alkaline Phosphatase 65 42 - 121 unit/L LAB CHEMISTRY METHOD 02/10/2025 10:19 AM EDT [facility] LAB Total Protein 5.9(L) 6.0 - 8.0 g/dL LAB CHEMISTRY METHOD 02/10/2025 10:19 AM [facility] Albumin 2.7(L) 3.2 - 5.0 g/dL LAB CHEMISTRY METHOD 02/10/2025 10:19 AM [facility] LAB Total Bilirubin 0.5 0.0 - 1.4 mg/dL LAB CHEMISTRY METHOD 02/10/2025 10:19 AM [facility] LAB Blood Venous blood specimen / Unknown Venipuncture / Unknown 02/10/2025 7:49 AM EDT 02/10/2025 9:40 AM EDT Jeronimo Norris MD LAB BLOOD ORDERABLES Final Resu lt [facility] [address] [place] [address], [place] [phone] * (ABNORMAL) Complete blood count (02/10/2025 7:49 AM EDT) WBC 13.5(H) 4.8 - 10.8 K/mcL LAB HEMETOLOGY METHOD 02/10/2025 10:01 AM [facility] RBC 3.40(L) 3.80 - 4.80 M/mcL LAB HEMETOLOGY METHOD 02/10/2025 10:01 AM [facility] Hemoglobin 10.6(L) 11.5 - 16.0 g/dL LAB HEMETOLOGY METHOD 02/10/2025 10:01 AM [facility] LAB Hematocrit 32.6(L) 35.0 - 47.0 % LAB HEMETOLOGY METHOD 02/10/2025 [facility] MCV 96.7 79.0 - 98.0 FL LAB HEMETOLOGY METHOD 02/10/2025 10:01 AM EDT [facility] MCH 31.5 27.0 - 32.0 pcg LAB HEMETOLOGY METHOD 02/10/2025 10:01 AM EDT [facility] MCHC 32.5 32.0 - 37.0 g/dL LAB HEMETOLOGY METHOD 02/10/2025 10:01 AM EDT [facility] RDW 12.9 11.0 - 15.0 % LAB HEMETOLOGY METHOD 02/10/2025 10:01 AM EDT [facility] Platelets 254 130 - 400 K/mcL LAB HEMETOLOGY METHOD 02/10/2025 10:01 AM [facility] MPV 11.2(H) 7.0 - 11.0 FL LAB HEMETOLOGY METHOD 02/10/2025 10:01 AM EDT [facility] NRBC 0.0 <1.0 % LAB HEMETOLOGY METHOD 02/10/2025 10:01 AM EDT [facility] NRBC Absolute 0.00 <0.10 K/mcL LAB HEMETOLOGY METHOD 02/10/2025 10:01 AM [facility] Blood Venous blood specimen / Unknown Venipuncture / Unknown 02/10/2025 7:49 AM EDT 02/10/2025 9:40 AM EDT us Jeronimo Norris MD LAB BLOOD ORDERABLES Final Resu lt [facility] [address] [place] [address], documented in this encounter Visit Diagnoses Diagnosis Essential (primary) hypertension Unspecified essential hypertension Gastro-esophageal reflux disease without esophagitis documented in this encounter Care Teams Wood [employer] Products Factory Worker Relationship Specialty Start Date End Date Jeronimo Norris MD [address] [place] [address] PCP - General Internal Medicine 02/10/25 documented as of this encounter
--- OUTSIDE RECORDS SUMMARY | 2025-02-28 12:52 | XMS_ITS | Patient Health Record ---
Author Organization [facility] Address [address] [facility] [place] [address] Care Team Providers Care City Constable Name Role Phone Ismael Davis MD Primary Care Provider Kaiser Cerna Unavailable [phone] Allergies Allergen (clinical drug ingredient) Drug/Non Drug [...] Status Risk Notes Problem Acquired hallux valgus (31510414) Hallux valgus (acquired), left foot (M20.12) Active confirmed Problem Acquired hallux valgus (07882762) Hallux valgus (acquired), right foot (M20.11) Active confirmed Problem Plantar fascial fibromatosis (92296778) 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 Problem Acquired hammer toe of right foot ([id number] 5) Other hammer toe(s) (acquired), right foot (M20.41) Active confirmed Problem Acquired hammer toe of left foot (953453474561860 3) Other hammer toe(s) (acquired), left foot (M20.42) Active confirmed Vital Signs Blood pressure diastolic 70 mm Hg 05/03/2024 Height 4ft 11in in 05/03/2024 Blood pressure systolic 138 mm Hg 05/03/2024 Weight 160 lbs 05/03/2024 BMI 32.31 kg/m2 05/03/2024 Encounters Encounter Location Date Provider Diagnosis [facility] [address] [address] 08/03/2024 [facility] [address] [address] 05/03/2024 [facility] Riddle Tinea unguium B35.1 ; [...] Medicare Advantage [address] [facility] [place] [address] [phone] [id number] Vero Ramírez Self - patient is the insured Medical (General) History Medical History History ICD Code Arthritis Back,Hip,and Knee pain Depression Headaches/Migraines Kidney disease Measles Mumps Chicken pox Surgical History Surgery Date(Month/Year) hysterectomy gall bladder Hospitalization History Reason Date(Month/Year) [facility]- Bee sting 04/23/24 [facility]- Rheumatoid arthritis 11/2023
--- OUTSIDE RECORDS SUMMARY | 2025-02-28 12:52 | XMS_ITS | Encounter Summary ---
Author Organization [facility] Address [address] [place] [address] Care Team Providers Care Copyright Expert Name Role Phone Jeronimo Norris MD Primary Care Provider [phone] Encounter Details Date Type Department Care Team (Late st Contact Info) Description 02/13/2025 Lab Requisition [facility] - Main Lab [address] [facility] [place] [address] Jeronimo Norris MD [address] [place] [address] Essential (primary) hypertension; Gastro-esophageal reflux [...] mmol/L LAB CHEMISTRY METHOD 02/14/2025 9:15 AM [facility] LAB Potassium 4.8 3.5 - 5.5 mmol/L LAB CHEMISTRY METHOD 02/14/2025 9:15 AM [facility] LAB Chloride 107 96 - 110 mmol/L LAB CHEMISTRY METHOD 02/14/2025 9:15 AM [facility] CO2 25 21 - 32 mmol/L LAB CHEMISTRY METHOD 02/14/2025 9:15 AM [facility] LAB Anion Gap 9 3 - 11 LAB CHEMISTRY METHOD 02/14/2025 9:15 AM [facility] Glucose 92 70 - 100 mg/dL LAB CHEMISTRY METHOD 02/14/2025 9:15 AM [facility] BUN 25 5 - 25 mg/dL LAB CHEMISTRY METHOD 02/14/2025 9:15 AM [facility] Creatinine 0.60 0.50 - 1.10 mg/dL LAB CHEMISTRY METHOD 02/14/2025 9:15 AM [facility] LAB eGFR 90 >=60 mL/min/1. 73m2 LAB CHEMISTRY METHOD 02/14/2025 9:15 AM [facility] LAB Comment:Calculation based on the??Chronic Kidney Disease Epidemiology Collaboration (CKD-EPI) equation refit??without adjustment for race. BUN/Creatinine Ratio 41.7 LAB CHEMISTRY METHOD 02/14/2025 9:15 AM [facility] Calcium 8.8 8.5 - 10.5 mg/dL LAB CHEMISTRY METHOD 02/14/2025 9:15 AM [facility] AST (SGOT) 46(H) 10 - 42 unit/L LAB CHEMISTRY METHOD 02/14/2025 9:15 AM [facility] ALT (SGPT) 23 10 - 60 unit/L LAB CHEMISTRY METHOD 02/14/2025 9:15 AM [facility] Alkaline Phosphatase 70 42 - 121 unit/L LAB CHEMISTRY METHOD 02/14/2025 9:15 AM EDT [facility] Total Protein 5.5(L) 6.0 - 8.0 g/dL LAB CHEMISTRY METHOD 02/14/2025 9:15 AM T [facility] Albumin 2.5(L) 3.2 - 5.0 g/dL LAB CHEMISTRY METHOD 02/14/2025 9:15 AM [facility] Total Bilirubin 0.5 0.0 - 1.4 mg/dL LAB CHEMISTRY METHOD 02/14/2025 9:15 AM [facility] Blood Venous blood specimen / Unknown Venipuncture / Unknown 02/14/2025 6:22 AM EDT 02/14/2025 8:24 AM EDT Jeronimo Norris MD LAB BLOOD ORDERABLES Final Resu lt [facility] [address] [place] [address], [place] [phone] * (ABNORMAL) Complete blood count (02/14/2025 6:22 AM EDT) WBC 14.2(H) 4.8 - 10.8 K/mcL LAB HEMETOLOGY METHOD 02/14/2025 8:46 AM [facility] RBC 3.30(L) 3.80 - 4.80 M/mcL LAB HEMETOLOGY METHOD 02/14/2025 8:46 AM [facility] Hemoglobin 10.0(L) 11.5 - 16.0 g/dL LAB HEMETOLOGY METHOD 02/14/2025 8:46 AM [facility] Hematocrit 31.6(L) 35.0 - 47.0 % LAB HEMETOLOGY METHOD 02/14/2025 8:46 AM T [facility] MCV 96.0 79.0 - 98.0 FL LAB HEMETOLOGY METHOD 02/14/2025 8:46 AM EDT [facility] MCH 30.4 27.0 - 32.0 pcg LAB HEMETOLOGY METHOD 02/14/2025 8:46 AM EDT [facility] MCHC 31.6(L) 32.0 - 37.0 g/dL LAB HEMETOLOGY METHOD 02/14/2025 8:46 AM EDT [facility] RDW 13.1 11.0 - 15.0 % LAB HEMETOLOGY METHOD 02/14/2025 8:46 AM EDT [facility] Platelets 321 130 - 400 K/mcL LAB HEMETOLOGY METHOD 02/14/2025 8:46 AM EDT [facility] MPV 10.6 7.0 - 11.0 FL LAB HEMETOLOGY METHOD 02/14/2025 8:46 AM EDT [facility] NRBC 0.0 <1.0 % LAB HEMETOLOGY METHOD 02/14/2025 8:46 AM EDT [facility] NRBC Absolute 0.00 <0.10 K/mcL LAB HEMETOLOGY METHOD 02/14/2025 8:46 AM T [facility] Blood Venous blood specimen / Unknown Venipuncture / Unknown 02/14/2025 6:22 AM EDT 02/14/2025 8:34 AM EDT us Jeronimo Norris MD LAB BLOOD ORDERABLES Final Resu lt [facility] [address] [place] [address], documented in this encounter Visit Diagnoses Diagnosis Essential (primary) hypertension Unspecified essential hypertension Gastro-esophageal reflux disease without esophagitis documented in this encounter Care Teams Copyright Expert Relationship Specialty Start Date End Date Jeronimo Norris MD [address] [place] [address] PCP - General Internal Medicine 02/10/25 documented as of this encounter
--- OUTSIDE RECORDS SUMMARY | 2025-02-28 12:52 | XMS_ITS | Encounter Summary ---
Author Organization [facility] Address [address] [place] [address] Care Team Providers Care Furnace Worker Name Role Phone Jeronimo Norris MD Primary Care Provider [phone] Encounter Details Date Type Department Care Team (Late st Contact Info) Description 02/20/2025 Lab Requisition [facility] - Main Lab [address] [facility] [place] [address] Jeronimo Norris MD [address] [place] [address] Essential (primary) hypertension; Gastro-esophageal reflux [...] mmol/L LAB CHEMISTRY METHOD 02/21/2025 12:55 PM [facility] Potassium 4.1 3.5 - 5.5 mmol/L LAB CHEMISTRY METHOD 02/21/2025 12:55 PM [facility] Chloride 102 96 - 110 mmol/L LAB CHEMISTRY METHOD 02/21/2025 12:55 PM [facility] CO2 27 21 - 32 mmol/L LAB CHEMISTRY METHOD 02/21/2025 12:55 PM [facility] Anion Gap 10 3 - 11 LAB CHEMISTRY METHOD 02/21/2025 12:55 PM [facility] Glucose 78 70 - 100 mg/dL LAB CHEMISTRY METHOD 02/21/2025 12:55 PM [facility] BUN 20 5 - 25 mg/dL LAB CHEMISTRY METHOD 02/21/2025 12:55 PM [facility] Creatinine 0.56 0.50 - 1.10 mg/dL LAB CHEMISTRY METHOD 02/21/2025 12:55 PM [facility] eGFR 91 >=60 mL/min/1. 73m2 LAB CHEMISTRY METHOD 02/21/2025 12:55 PM [facility] Comment:Calculation based on the Chronic Kidney Disease Epidemiology Collaboration (CKD-EPI) equation refit without adjustment for race. BUN/Creatinine Ratio 35.7 LAB CHEMISTRY METHOD 02/21/2025 12:55 PM [facility] Calcium 8.8 8.5 - 10.5 mg/dL LAB CHEMISTRY METHOD 02/21/2025 12:55 PM [facility] AST (SGOT) 15 10 - 42 unit/L LAB CHEMISTRY METHOD 02/21/2025 12:55 PM [facility] ALT (SGPT) 14 10 - 60 unit/L LAB CHEMISTRY METHOD 02/21/2025 12:55 PM [facility] Alkaline Phosphatase 79 42 - 121 unit/L LAB CHEMISTRY METHOD 02/21/2025 12:55 PM EDT [facility] Total Protein 5.7(L) 6.0 - 8.0 g/dL LAB CHEMISTRY METHOD 02/21/2025 12:55 PM EDT [facility] Albumin 2.6(L) 3.2 - 5.0 g/dL LAB CHEMISTRY METHOD 02/21/2025 12:55 PM EDT [facility] Total Bilirubin 0.3 0.0 - 1.4 mg/dL LAB CHEMISTRY METHOD 02/21/2025 12:55 PM EDT [facility] Blood Venous blood specimen / Unknown 02/21/2025 5:59 AM EDT 02/21/2025 11:33 AM EDT us Jeronimo Norris MD LAB BLOOD ORDERABLES Final Resu lt [facility] [address] [place] [address], [place] [phone] * (ABNORMAL) Complete blood count (02/21/2025 5:59 AM EDT) WBC 9.2 4.8 - 10.8 K/mcL LAB HEMETOLOGY METHOD 02/21/2025 1:48 PM EDT [facility] RBC 3.10(L) 3.80 - 4.80 M/mcL LAB HEMETOLOGY METHOD 02/21/2025 1:48 PM EDT [facility] Hemoglobin 9.6(L) 11.5 - 16.0 g/dL LAB HEMETOLOGY METHOD 02/21/2025 1:48 PM EDT [facility] Hematocrit 31.1(L) 35.0 - 47.0 % LAB HEMETOLOGY METHOD 02/21/2025 1:48 PM EDT [facility] MCV 100.0(H) 79.0 - 98.0 FL LAB HEMETOLOGY METHOD 02/21/2025 1:48 PM EDT [facility] MCH 30.9 27.0 - 32.0 pcg LAB HEMETOLOGY METHOD 02/21/2025 1:48 PM EDT [facility] MCHC 30.9(L) 32.0 - 37.0 g/dL LAB HEMETOLOGY METHOD 02/21/2025 1:48 PM EDT [facility] RDW 14.4 11.0 - 15.0 % LAB HEMETOLOGY METHOD 02/21/2025 1:48 PM EDT [facility] Platelets 563(H) 130 - 400 K/mcL LAB HEMETOLOGY METHOD 02/21/2025 1:48 PM EDT [facility] MPV 9.9 7.0 - 11.0 FL LAB HEMETOLOGY METHOD 02/21/2025 1:48 PM EDT [facility] NRBC 0.0 <1.0 % LAB HEMETOLOGY METHOD 02/21/2025 1:48 PM EDT [facility] NRBC Absolute 0.00 <0.10 K/mcL LAB HEMETOLOGY METHOD 02/21/2025 1:48 PM EDT [facility] Blood Venous blood specimen / Unknown 02/21/2025 5:59 AM EDT 02/21/2025 11:33 AM EDT us Jeronimo Norris MD LAB BLOOD ORDERABLES Final Resu lt [facility] [address] [place] [address], documented in this encounter Visit Diagnoses Diagnosis Essential (primary) hypertension Unspecified essential hypertension Gastro-esophageal reflux disease without esophagitis documented in this encounter Care Teams Furnace Worker Relationship Specialty Start Date End Date Jeronimo Norris MD [address] [place] [address] PCP - General Internal Medicine 02/10/25 documented as of this encounter
--- OUTSIDE RECORDS SUMMARY | 2025-02-28 12:52 | XMS_ITS | Encounter Summary ---
Author Organization [facility] Address [address] [place] [address] Care Team Providers Care Metal Fabricator Welder Name Role Phone Jeronimo Norris MD Primary Care Provider [phone] Encounter Details Date Type Department Care Team (Late st Contact Info) Description 02/23/2025 Lab Requisition [facility] - Main Lab [address] [facility] [place] [address] Jeronimo Norris MD [address] [place] [address] Essential (primary) hypertension; Gastro-esophageal reflux [...] mmol/L LAB CHEMISTRY METHOD 02/24/2025 9:17 AM [facility] Potassium 4.1 3.5 - 5.5 mmol/L LAB CHEMISTRY METHOD 02/24/2025 9:17 AM [facility] Chloride 102 96 - 110 mmol/L LAB CHEMISTRY METHOD 02/24/2025 9:17 AM [facility] CO2 29 21 - 32 mmol/L LAB CHEMISTRY METHOD 02/24/2025 9:17 AM [facility] Anion Gap 7 3 - 11 LAB CHEMISTRY METHOD 02/24/2025 9:17 AM [facility] Glucose 84 70 - 100 mg/dL LAB CHEMISTRY METHOD 02/24/2025 9:17 AM [facility] BUN 20 5 - 25 mg/dL LAB CHEMISTRY METHOD 02/24/2025 9:17 AM [facility] Creatinine 0.48(L) 0.50 - 1.10 mg/dL LAB CHEMISTRY METHOD 02/24/2025 9:17 AM [facility] eGFR 95 >=60 mL/min/1. 73m2 LAB CHEMISTRY METHOD 02/24/2025 9:17 AM [facility] Comment:Calculation based on the Chronic Kidney Disease Epidemiology Collaboration (CKD-EPI) equation refit without adjustment for race. BUN/Creatinine Ratio 41.7 LAB CHEMISTRY METHOD 02/24/2025 9:17 AM [facility] Calcium 8.9 8.5 - 10.5 mg/dL LAB CHEMISTRY METHOD 02/24/2025 9:17 AM [facility] Blood Venous blood specimen / Unknown Venipuncture / Unknown 02/24/2025 6:35 AM EDT 02/24/2025 8:22 AM EDT us Jeronimo Norris MD LAB BLOOD ORDERABLES Final Resu lt [facility] [address] [place] [address], * (ABNORMAL) Complete blood count (02/24/2025 6:35 AM EDT) [facility] WBC 7.8 4.8 - 10.8 K/mcL LAB [...] Resu lt [facility] [address] [place] [address], documented in this encounter Visit Diagnoses Diagnosis Essential (primary) hypertension Unspecified essential hypertension Gastro-esophageal reflux disease without esophagitis documented in this encounter Care Teams Metal Fabricator Welder Relationship Specialty Start Date End Date Jeronimo Norris MD [address] [place] [address] PCP - General Internal Medicine 02/10/25 documented as of this encounter
--- OUTSIDE RECORDS SUMMARY | 2025-02-28 12:52 | XMS_ITS ---
Author Organization [facility] [place] Address [address] [facility] [place] [address] Care Team Providers Care Medical Office Clerk Name Role Phone Ismael Davis MD Primary Care Provider Kaiser Cerna Unavailable [phone] Allergies Allergen (clinical drug ingredient) Drug/Non Drug [...] 024 Encounters Encounter Location Date Provider Diagnosis [facility] [place] [address] [place] [address] 05/03/2024 Kaiser Riddle Tinea unguium B35.1 ; [...] * Vero CONNELLYDOB: [birth year] (83 yo F)Acc No.[id number]:05/03/2024 Progress Note Patient:?DarrellAguilaly Provider:?Kaiser Riddle DPM :1940???Age:83 Y???Sex:Female D ate:05/03/2024 Address:[address], [place] , [id number] Pcp:Ismael Davis MD Subjective: * Chief Complaints: [...] Exercise. ?Marital status: . ?Occupation: retired- [employer]. * Medications:?TakingAlendrona te Sodium 70 MG Tablet [...] surgical procedures to prevent recurrence.? * Procedure Codes:?49125 Avuls ion Plate, Modifiers: T1 * Preventive [...] DPM Date:? 024 Generated for Astrid mello/Faxing/eTransmitting on:?02/28/2025 12:51 PM EDT History and Physical [...]
--- OUTSIDE RECORDS SUMMARY | 2025-02-28 12:52 | XMS_ITS | Clinical Summary ---
Author Organization [address] Address [address] [place] [address] Phone Care Team Providers Care Contact Lens Molder Name Role Phone Jeronimo Norris MD Primary Care Provider [phone] Encounters Date Type Department Care Team Description 02/23/2025 Lab Requisition [facility] Lab [address] [place] [phone] Jeronimo Norris MD Essential (primary) hypertension; Gastro-esophageal reflux disease without esophagitis 02/20/2025 Lab Requisition [facility] Lab [address] [place] [address] Jeronimo Norris MD Essential (primary) hypertension; Gastro-esophageal reflux disease without esophagitis 02/16/2025 Lab Requisition [facility] Lab [address] [place] [address] Jeronimo Norris MD Essential (primary) hypertension; Gastro-esophageal reflux disease without esophagitis 02/13/2025 Lab Requisition [facility] Lab [address] [place] [phone] Jeronimo Norris MD Essential (primary) hypertension; Gastro-esophageal reflux disease without esophagitis 02/10/2025 Lab Requisition [facility] Lab [address] [place] [address] Jeronimo Norris MD Essential (primary) hypertension; Gastro-esophageal reflux disease without esophagitis from Last 3 Months Surgical History Surgery Date Site/Laterality Comments CHOLECYSTECTOMY age 19 PROCEDURE: HISTORICAL CHOLECYSTECTOMY COLONOSCOPY 03/14 PROCEDURE: [place] COLONOSCOPY STOMA DX INCLUDING COLLJ SPEC SPX OTHER SURGICAL HISTORY 4/04 PROCEDURE: MAMMOGRAM TONSILLECTOMY ADENOIDECTOMY, BILATERAL MYRINGOTOMY AND TUBES PROCEDURE: [place] TONSILLECTOMY & ADENOIDECTOMY <AGE 14 HYSTERECTOMY 1965 PROCEDURE: HISTORICAL HYSTERECTOMY; COMMENT: SHAYE FUENTES ESOPHAGOGASTRODUODENOSCOPY 2 PROCEDURE: [place] ESOPHAGOGASTRODUODENOSCOPY TRANSORAL DIAGNOSTIC; COMMENT: normal on PPI rx. CARPAL TUNNEL RELEASE January, PROCEDURE: [place] NEUROPLASTY &/TRANSPOS MEDIAN NRV CARPAL TUNNE; COMMENT: [...] 04/26/2006 DX:Keloid scar Sciatica 04/30/2007 DX:Sciatica Polymyalgia ([facility]/HCC V24) 02/18/2008 DX:Gokul ymyalgia ([facility]); COMMENT: Onset fall 2006 - [...] LAB NRBC Absolute 0.00 <0.10 K/mcL [facility] 02/24/2025 8:52 AM EDT [facility] Blood Venous blood specimen / Unknown Venipuncture / Unknown 02/24/2025 6:35 AM EDT 02/24/2025 8:22 AM EDT us Jeronimo Norris MD LAB BLOOD ORDERABLES Final Resu lt [facility] [address] [place] [address], [place] [phone] * (ABNORMAL) Basic metabolic panel (02/24/2025 6:35 [...] mmol/L LAB [facility] Anion Gap 7 3 - [...] Resu lt [facility] [address] [place] [address], * (ABNORMAL) Comprehensive metabolic panel (02/21/2025 5:59 [...] LAB CHEMISTRY METHOD 02/21/2025 12:55 PM EDT [facility] ([facility] Total Bilirubin 0.3 0.0 - 1.4 mg/dL LAB CHEMISTRY METHOD 02/21/2025 12:55 PM EDT [facility] Blood Venous blood specimen / Unknown 02/21/2025 5:59 AM EDT 02/21/2025 11:33 AM EDT us Jeronimo Norris MD LAB BLOOD ORDERABLES Final Resu lt [facility] ([facility]) [facility] [address] [place] [address], from Last 3 Months Insurance [employer] Care Teams Contact Lens Molder Relationship Specialty Start Date End Date Jeronimo Norris MD [address] [place] [address] PCP - General Internal Medicine 02/10/25
== END 2025-02-25 12:31 | disposition home or self-care (01) ==
LOC: HO.HOSX 12:30
PROVIDERS: Visit Provider Physician Assistant
DX: S72.141D Displaced intertrochanteric fracture of right femur, subsequent encounter for closed fracture with routine healing (principal); Z98.890 Other specified postprocedural states
CPT/HCPCS: 73552; 99212

== ENCOUNTER 2025-02-25 13:55 | Outpatient (AMB) | payer MEDICARE, SELFPAY ==
--- OUTSIDE RECORDS SUMMARY | 2025-02-25 13:58 | XMS_ITS | Encounter Summary ---
Author Organization [facility] Address [address] [place] [address] Care Team Providers Care Molding Press Operator Name Role Phone Name, Rafael TAVERA Primary Care Provider Christal Piedra MD Primary Care Provider Africa Ibrahim MD Primary Care Provider Un available Jose Lopez MD Primary Care Provider Unavail able Javier Eller MD Primary Care Provider [phone] Encounter Details Date Type Department Care Team Description 05/29/2012 Phone Counselor Report Medical Records [address] [place] [address] Raysa Brunson, JOSH Social History Tobacco Use [...] on filedocumented in this encounter Care Teams Molding Press Operator Relationship Specialty Start Date End Date Name, MD Rafael PCP - General 12/13/09 11/14/15 Christal Celestin MD PCP - General Internal Medicine 11/15/15 11/30/18 Africa Blankenship MD PCP - General Internal Medicine 12/01/18 9 Jose Lopez MD PCP - General Internal Medicine 01/19/19 04/11/20 Javier Eller MD [address] [place] [address] [id number] PCP - General Internal Medicine 04/12/20 documented as of this encounter
--- OUTSIDE RECORDS SUMMARY | 2025-02-25 13:58 | XMS_ITS | Encounter Summary ---
Author Organization [facility] Address [address] [place] [address] Care Team Providers Care Packaging Line Attendant Name Role Phone Christal Celestin MD Primary Care Provider Arfica Ibrahim MD Primary Care Provider Un available Jose Lopez MD Primary Care Provider Unavail Javier Patel MD Primary Care Provider [phone] Reason for Visit * Reason Comments E-prescribe Rx Request Encounter Details Date Type Department Care Team Description 11/29/2018 Refill Adult Medicine [address] [address] Vibha Vazquez PA-C [address] [place] [address] E-prescribe Rx Request Social History Tobacco Use [...] N/A Patients current insurance carrier is: Payor: [facility]FS / Plan: [facility] MEDICARE PREMIUM $10 [place] / Product Type: MEDICARE [id number] documented in this encounter Plan of Treatment Not on file documented as of this encounter Visit Diagnoses Not on filedocumented in this encounter Care Teams Packaging Line Attendant Relationship Specialty Start Date End Date Christal Celestin MD PCP - General Internal Medicine 11/15/15 11/30/18 Africa Blankenship MD PCP - General Internal Medicine 12/01/18 9 Jose Lopez MD PCP - General Internal Medicine 01/19/19 04/11/20 Javier Eller MD [address] [place] [id number] PCP - General Internal Medicine 04/12/20 documented as of this encounter
--- OUTSIDE RECORDS SUMMARY | 2025-02-25 13:58 | XMS_ITS | Encounter Summary ---
Author Organization [facility] Address [address] [place] [address] Care Team Providers Care Behavioral Therapy Coordinator Name Role Phone Name, Rafael TAVERA Primary Care Provider Christal Piedra MD Primary Care Provider Africa Ibrahim MD Primary Care Provider Un available Jose Lopez MD Primary Care Provider Unavail able Javier Eller MD Primary Care Provider [phone] Encounter Details Date Type Department Care Team Description 10/25/2010 Eye Sleep Tech Report Medical Records [address] [place] [address] Javi Bronson Social History Tobacco Use Types [...] on filedocumented in this encounter Care Teams Behavioral Therapy Coordinator Relationship Specialty Start Date End Date Name, MD Rafael PCP - General 12/13/09 11/14/15 Christal Celestin MD PCP - General Internal Medicine 11/15/15 11/30/18 Africa Blankenship MD PCP - General Internal Medicine 12/01/18 9 Jose Lopez MD PCP - General Internal Medicine 01/19/19 04/11/20 Javier Eller MD [address] [place] [address] [id number] PCP - General Internal Medicine 04/12/20 documented as of this encounter
--- OUTSIDE RECORDS SUMMARY | 2025-02-25 13:58 | XMS_ITS | Encounter Summary ---
Author Organization [facility] Address [address] [place] [address] Care Team Providers Care Team Primary Care Physician Name Role Phone Name, Rafael TAVERA Primary Care Provider Christal Piedra MD Primary Care Provider Africa Ibrahim MD Primary Care Provider Un available Jose Lopez MD Primary Care Provider Unavail able Javier Eller MD Primary Care Provider [phone] Encounter Details Date Type Department Care Team Description 05/01/2012 Hospital Medical Records [address] [place] [address] Florian Reina MD, MD Social History Tobacco [...] on filedocumented in this encounter Care Teams Team Primary Care Physician Relationship Specialty Start Date End Date Name, MD Rafael PCP - General 12/13/09 11/14/15 Christal Celestin MD PCP - General Internal Medicine 11/15/15 11/30/18 Africa Blankenship MD PCP - General Internal Medicine 12/01/18 9 Jose Lopez MD PCP - General Internal Medicine 01/19/19 04/11/20 Javier Eller MD [address] [place] [id number] PCP - General Internal Medicine 04/12/20 documented as of this encounter
--- OUTSIDE RECORDS SUMMARY | 2025-02-25 13:58 | XMS_ITS | Patient Health Record ---
Author Organization [facility] Address [address] [facility] [place] [address] Care Team Providers Care County Demonstrator Name Role Phone Ismael Davis MD Primary Care Provider Kaiser Cerna Unavailable [phone] Allergies Allergen (clinical drug ingredient) Drug/Non Drug [...] Status Risk Notes Problem Acquired hallux valgus (27041459) Hallux valgus (acquired), left foot (M20.12) Active confirmed Problem Acquired hallux valgus (70933524) Hallux valgus (acquired), right foot (M20.11) Active confirmed Problem Plantar fascial fibromatosis (08578435) 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 Problem Acquired hammer toe of right foot (160326286761344 5) Other hammer toe(s) (acquired), right foot (M20.41) Active confirmed Problem Acquired hammer toe of left foot (863250212534153 3) Other hammer toe(s) (acquired), left foot (M20.42) Active confirmed Vital Signs Blood pressure diastolic 70 mm Hg 05/03/2024 Height 4ft 11in in 05/03/2024 Blood pressure systolic 138 mm Hg 05/03/2024 Weight 160 lbs 05/03/2024 BMI 32.31 kg/m2 05/03/2024 Encounters Encounter Location Date Provider Diagnosis [facility] [address] [address] 08/03/2024 [facility] [address] [address] 05/03/2024 [facility] Tinea unguium B35.1 ; [...] Medicare Advantage [address] [facility] [place] [address] [phone] [id number] Vero Ramírez Self - patient is the insured Medical (General) History Medical History History ICD Code Arthritis Back,Hip,and Knee pain Depression Headaches/Migraines Kidney disease Measles Mumps Chicken pox Surgical History Surgery Date(Month/Year) hysterectomy gall bladder Hospitalization History Reason Date(Month/Year) [facility]- Bee sting 04/23/24 [facility] Rheumatoid arthritis 11/2023
--- OUTSIDE RECORDS SUMMARY | 2025-02-25 13:58 | XMS_ITS | Encounter Summary ---
Author Organization [facility] Address [address] [place] [address] Care Team Providers Care Outside Maintenance Worker Name Role Phone Christal Celestin MD Primary Care Provider Africa Ibrahim MD Primary Care Provider Un available Jose Lopez MD Primary Care Provider Unavail able Javier Eller MD Primary Care Provider [phone] Encounter Details Date Type Department Care Team Description 01/18/2016 Business Doc Medical Records [address] [place] [address] Abstract, Provider Social History Tobacco Use Types [...] on filedocumented in this encounter Care Teams Outside Maintenance Worker Relationship Specialty Start Date End Date Christal Celestin MD PCP - General Internal Medicine 11/15/15 11/30/18 Africa Blankenship MD PCP - General Internal Medicine 12/01/18 9 Jose Lopez MD PCP - General Internal Medicine 01/19/19 04/11/20 Javier Eller MD [address] [place] [phone] PCP - General Internal Medicine 04/12/20 documented as of this encounter
--- OUTSIDE RECORDS SUMMARY | 2025-02-25 13:58 | XMS_ITS | Encounter Summary ---
Author Organization [facility] Address [address] [place] [address] Care Team Providers Care Aerospace Control And Warning Systems Name Role Phone Jose Lopez MD Primary Care Provider [facility] Javier Patel MD Primary Care Provider [phone] Reason for Visit * Reason Onset Date Comments refill request 09/28/2019 Encounter Details Date Type Department Care Team Description 09/28/2019 Refill Adult Medicine [address] [id number] Jose Lopez MD refill request Social History [...] N/A Patients current insurance carrier is: Payor: [facility] FFS / Plan: [facility] MEDICARE PREMIUM $10 [place] / Product Type: MEDICARE [id number] documented in this encounter Plan of Treatment Not on file documented as of this encounter Visit Diagnoses Not on filedocumented in this encounter Care Teams Aerospace Control And Warning Systems Relationship Specialty Start Date End Date Jose Lopez MD PCP - General Internal Medicine 01/19/19 04/11/20 Javier Eller MD [address] [place] [id number] PCP - General Internal Medicine 04/12/20 documented as of this encounter
--- OUTSIDE RECORDS SUMMARY | 2025-02-25 13:58 | XMS_ITS | Encounter Summary ---
Author Organization [facility] Address [address] [place] [address] Care Team Providers Care Services Program Manager Name Role Phone Name, Rafael TAVERA Primary Care Provider Christal Piedra MD Primary Care Provider Africa Ibrahim MD Primary Care Provider Un available Jose Lopez MD Primary Care Provider Unavail able Javier Eller MD Primary Care Provider [phone] Reason for Visit * Reason Onset Date Comments Edema 01/11/2015 Encounter Details Date Type Department Care Team Description 01/11/2015 Telephone Adult Medicine [address] [phone] Name, MD Rafael Edema Social History Tobacco [...] fluticasone (FLONASE) 50 MCG/ACT nasal spray 1 [place] by Nasal route daily. 1 Bottle 5 No facility-administered medications prior to visit. * Telephone Encounter - Jasmine Malik - 01/11/2015 8:46 AM EDT Symptoms patient is presenting: ankles retaining fluid, cannot wear regular shoes How long has patient had these symptoms?: since Friday PCP: Rafael Name Payor: [facility] / Plan: [facility] MEDICARE PLUS $15 [id number] / Product Type: MEDICARE [id number] documented in this encounter Plan of Treatment Not on file documented as of this encounter Visit Diagnoses Not on filedocumented in this encounter Care Teams Services Program Manager Relationship Specialty Start Date End Date Name, MD Rafael PCP - General 12/13/09 11/14/15 Christal Celestin MD PCP - General Internal Medicine 11/15/15 11/30/18 Africa Blankenship MD PCP - General Internal Medicine 12/01/18 9 Jose Lopez MD PCP - General Internal Medicine 01/19/19 04/11/20 Javier Eller MD [address] [place] [address] PCP - General Internal Medicine 04/12/20 documented as of this encounter
--- OUTSIDE RECORDS SUMMARY | 2025-02-25 13:58 | XMS_ITS | Clinical Summary ---
Author Organization [facility] Address [address] [facility] [place] [address] Care Team Providers Care Physical Design Engineer Name Role Phone Javier Eller MD Primary Care Provider [phone] Allergies Active Allergy Reactions Severity Noted Date [...] Active fluticasone 50 MCG/ACT nasal spray 1 [place] by Nasal route daily. 48 g 1 [...] Comments drug abuse Daughter 4 suicide 36 [place] Father 52 CHF Mother 86 Relation Name [...] 08/27/2017, 01/17/2016, Additional history exists Care Teams Physical Design Engineer Relationship Specialty Start Date End Date Javier Eller MD [address] [place] [address] [id number] PCP - General Internal Medicine 04/12/20
--- OUTSIDE RECORDS SUMMARY | 2025-02-25 13:58 | XMS_ITS | Encounter Summary ---
Author Organization [facility] Address [address] [place] [address] Care Team Providers Care Business Advisor Name Role Phone Name, Rafael TAVERA Primary Care Provider Christal Piedra MD Primary Care Provider Africa Ibrahim MD Primary Care Provider Un available Jose Lopez MD Primary Care Provider Unavail able Javier Eller MD Primary Care Provider Encounter Details Date Type Department Care Team Description 09/02/2014 Release of Information Medical Records [address] [place] [phone] Abstract, Provider Social History Tobacco Use Types [...] on filedocumented in this encounter Care Teams Business Advisor Relationship Specialty Start Date End Date Name, MD Rafael PCP - General 12/13/09 11/14/15 Christal Celestin MD PCP - General Internal Medicine 11/15/15 11/30/18 Africa Blankenship MD PCP - General Internal Medicine 12/01/18 9 Jose Loepz MD PCP - General Internal Medicine 01/19/19 04/11/20 Javier Eller MD [address] [place] [address] [id number] PCP - General Internal Medicine 04/12/20 documented as of this encounter
--- OUTSIDE RECORDS SUMMARY | 2025-02-25 13:58 | XMS_ITS | Encounter Summary ---
Author Organization [facility] Address [address] [place] [address] Care Team Providers Care Primary Grade Teacher Name Role Phone Name, Rafael TAVERA Primary Care Provider Christal Piedra MD Primary Care Provider Africa Ibrahim MD Primary Care Provider Un available Jose Lopez MD Primary Care Provider Unavail able Javier Eller MD Primary Care Provider [phone] Encounter Details Date Type Department Care Team Description 03/18/2012 Release of Information Medical Records [address] [place] [phone] Abstract, Provider Social History Tobacco Use Types [...] on filedocumented in this encounter Care Teams Primary Grade Teacher Relationship Specialty Start Date End Date Name, MD Rafael PCP - General 12/13/09 11/14/15 Christal Celestin MD PCP - General Internal Medicine 11/15/15 11/30/18 Africa Blankenship MD PCP - General Internal Medicine 12/01/18 9 Jose Lopez MD PCP - General Internal Medicine 01/19/19 04/11/20 Javier Eller MD [address] [place] [address] [id number] PCP - General Internal Medicine 04/12/20 documented as of this encounter
--- OUTSIDE RECORDS SUMMARY | 2025-02-25 13:58 | XMS_ITS | Encounter Summary ---
Author Organization [facility] Address [address] [place] [address] Care Team Providers Care Precision Structural Metal Fitter Name Role Phone Christal Celestin MD Primary Care Provider Africa Ibrahim MD Primary Care Provider Un available Jose Lopez MD Primary Care Provider Javier Jurado MD Primary Care Provider [phone] Reason for Referral * EXTERNAL (Urgent) - Authorized/Booked Specialty Diagnoses / Procedures Referred By Mami stephenson Referred To Contact Physical Therapy Diagnoses Primary localized osteoarthrosis of lower leg, unspecified laterality Unsteady gait Procedures REFERRAL TO PHYSICAL THERAPY Randolph Layne MD [address] [place] [id number] External Phys Thrpy Referral ID Status Reason Start Date Expiration Date V isits Requested Visits Authorized SEE NOTE Authorized/B ooked 06/26/2018 09/25/2018 1 1 Reason for Visit * Reason Onset Date Comments Hand Pattern Marker Feedback 06/26/2018 Rehab Resolution s PT Encounter Details Date Type Department Care Team Description 06/26/2018 Telephone Rheumatology - [address] [address] Randolph Layne MD Hand Pattern Marker Feedback ([facility] Resolutions PT) Social History Tobacco [...] gait documented in this encounter Care Teams Precision Structural Metal Fitter Relationship Specialty Start Date End Date Christal Celestin MD PCP - General Internal Medicine 11/15/15 11/30/18 Africa Blankenship MD PCP - General Internal Medicine 12/01/18 9 Jose Lopez MD PCP - General Internal Medicine 01/19/19 04/11/20 Javier Eller MD [address] [place] [id number] PCP - General Internal Medicine 04/12/20 documented as of this encounter
--- OUTSIDE RECORDS SUMMARY | 2025-02-25 13:58 | XMS_ITS | Encounter Summary ---
Author Organization [facility] Address [address] [place] [address] Care Team Providers Care Mechanical Repair Worker Name Role Phone Name, Rafael TAVERA Primary Care Provider Christal Piedra MD Primary Care Provider Africa Ibrahim MD Primary Care Provider Un available Jose Lopez MD Primary Care Provider Unavail able Javier Eller MD Primary Care Provider [phone] Encounter Details Date Type Department Care Team Description 05/17/2014 Business Area Director Report Medical Records [address] [place] [id number] Hyacinth Momin MD Social History Tobacco Use [...] on filedocumented in this encounter Care Teams Mechanical Repair Worker Relationship Specialty Start Date End Date Name, MD Rafael PCP - General 12/13/09 11/14/15 Christal Celestin MD PCP - General Internal Medicine 11/15/15 11/30/18 Africa Blankenship MD PCP - General Internal Medicine 12/01/18 9 Jose Lopez MD PCP - General Internal Medicine 01/19/19 04/11/20 Javier Eller MD [address] [place] [address] [id number] PCP - General Internal Medicine 04/12/20 documented as of this encounter
--- OUTSIDE RECORDS SUMMARY | 2025-02-25 13:58 | XMS_ITS | Encounter Summary ---
Author Organization [facility] Address [address] [place] [address] Care Team Providers Care Solar Sales Estimator Name Role Phone Name, Rafael TAVERA Primary Care Provider Ferny Adame MD Primary Care Provider [phone] Rebekah Moser MD Primary Care Provider [phone] Christal Celestin MD Primary Care Provider Africa Ibrahim MD Primary Care Provider Un available Jose Lopez MD Primary Care Provider Unavail able Javier Eller MD Primary Care Provider [phone] Encounter Details Date Type Department Care Team Description 03/12/2005 Orders Only Medical [address] [place] [address] [phone] Rebekah Moser MD [address] [place] [address] [phone] LONG-TERM (CURRENT) USE OF OTHER MEDICATIONS (Primary [...] SEDIMENTATION RATE-[place] (03/12/2005 11:13 AM EDT) Pathologist [facility] ERYTHROCYTE SEDIMENTATION RATE 34(H) 0 - 20 MM/HR [facility] Comment: Performed at [facility], [address] [place] [address] 03/12/2005 11:1 3 AM EDT 03/12/2005 11:17 AM EDT Rebekah Moser MD LAB Performing Organization Address [facility] Co de Phone Number [facility] * RHEUMATOID FACTOR ASSAY (03/12/2005 11:13 AM EDT) [facility] RHEUMATOID FACTOR <10 <10 IU/ml [facility] 03/12/2005 11:1 3 AM EDT 03/12/2005 11:17 AM EDT Rebekah Moser MD LAB [facility] * ANTINUCLEAR ANTIBODIES, ASSAY (03/12/2005 11:13 AM EDT) Pathologist [facility] ANTI-NUCLEAR ANTIBODY SCREEN NEGATIVE NEGATIVE [facility] Comment: MARK test should be ordered only if a clinical evidence ofSLE or other rheumatic condition exists. ??MARK test shouldnot be used for random screening for SLE. Reviewed by Dr. Sharpe 03/12/2005 11:1 3 AM EDT 03/12/2005 11:17 AM EDT Rebekah Moser MD LAB Performing Organization Address City/[facility]/ZIP Co de Phone Number [facility] * CBC (AUTO DIFF & PLATELET) (03/12/2005 [...] Rebekah Moser MD LAB Performing Organization Address [facility]/ZIP Co de Phone Number [facility] * THYROID PROFILE W/TSH (03/12/2005 11:13 AM EDT) TSH CASCADE 1.90 0.40 - 4.00 uIU/ml [facility] 03/12/2005 11:1 3 AM EDT 03/12/2005 11:17 AM EDT Rebekah Moser MD LAB [facility] * (ABNORMAL) BASIC METABOLIC PANEL (03/12/2005 11:13 [...] Primary documented in this encounter Care Teams Solar Sales Estimator Relationship Specialty Start Date End Date Name, MD Rafael PCP - General 12/13/09 11/14/15 Ferny Gonzalez MD [address] [place] [address] PCP - General 04/21/07 12/12/09 Rebekah Moser MD [address] [place] [address] PCP - General 08/31/1999 04/20/07 Christal Celestin MD [address] [place] [address] PCP - General Internal Medicine 11/15/15 11/30/18 Africa Blankenship MD [address] [place] [address] PCP - General Internal Medicine 12/01/18 01/18/19 Jose Lopez MD [address] [place] [address] PCP - General Internal Medicine 01/19/19 04/11/20 Javier Eller MD [address] [place] [address] PCP - General Internal Medicine 04/12/20 documented as of this encounter
--- OUTSIDE RECORDS SUMMARY | 2025-02-25 13:58 | XMS_ITS | Encounter Summary ---
Author Organization [facility] Address [address] [place] [phone] Care Team Providers Care Developmental Education Instructor Name Role Phone Jeronimo Norris MD Primary Care Provider [phone] Encounter Details Date Type Department Care Team (Late st Contact Info) Description 02/13/2025 Lab Requisition [facility] - Main Lab [address] [facility] [place] [address] Jeronimo Norris MD [address] [place] [address] Essential (primary) hypertension; Gastro-esophageal reflux disease without esophagitis Social History Tobacco Use Types Packs/Day Years Used Date Smoking Tobacco: Former Cigarettes 0.8 28 0 10/13/1956 - 10/13/1984 Smokeless Tobacco: Former Alcohol Use Standard Drinks/Week Comments Yes 0 (1 standard drink = 0.6 oz pur e alcohol) Comments Unknown Sex and Gender Information Value Date Recorded Sex Assigned at Not on file Legal Sex Female 8:37 AM EST Gender Identity Not on file Sexual Orientation Not on file documented as of this encounter Plan of Treatment Not on file documented as of this encounter Procedures Procedure Name Priority Date/Time Associated Diagnosis Comments COMPLETE BLOOD COUNT Routine 02/14/2025 6:22 AM EDT Essential (primary) hypertension Gastro-esophageal reflux disease without esophagitis COMPREHENSIVE METABOLIC PANEL Routine 02/14/2025 6:22 AM EDT Essential (primary) hypertension Gastro-esophageal reflux disease without esophagitis documented in this encounter Results * (ABNORMAL) Comprehensive metabolic panel (02/14/2025 6:22 AM EDT) Sodium 141 133 - 145 mmol/L LAB CHEMISTRY METHOD 02/14/2025 9:15 AM [facility] Potassium 4.8 3.5 - 5.5 mmol/L LAB CHEMISTRY METHOD 02/14/2025 9:15 AM [facility] Chloride 107 96 - 110 mmol/L LAB CHEMISTRY METHOD 02/14/2025 9:15 AM [facility] CO2 25 21 - 32 mmol/L LAB CHEMISTRY METHOD 02/14/2025 9:15 AM [facility] Anion Gap 9 3 - 11 LAB CHEMISTRY METHOD 02/14/2025 9:15 AM [facility] Glucose 92 70 - 100 mg/dL LAB CHEMISTRY METHOD 02/14/2025 9:15 AM [facility] BUN 25 5 - 25 mg/dL LAB CHEMISTRY METHOD 02/14/2025 9:15 AM [facility] Creatinine 0.60 0.50 - 1.10 mg/dL LAB CHEMISTRY METHOD 02/14/2025 9:15 AM [facility] eGFR 90 >=60 mL/min/1. 73m2 LAB CHEMISTRY METHOD 02/14/2025 9:15 AM [facility] Comment:Calculation based on the??Chronic Kidney Disease Epidemiology Collaboration (CKD-EPI) equation refit??without adjustment for race. BUN/Creatinine Ratio 41.7 LAB CHEMISTRY METHOD 02/14/2025 9:15 AM [facility] Calcium 8.8 8.5 - 10.5 mg/dL LAB CHEMISTRY METHOD 02/14/2025 9:15 AM [facility] AST (SGOT) 46(H) 10 - 42 unit/L LAB CHEMISTRY METHOD 02/14/2025 9:15 AM [facility] ALT (SGPT) 23 10 - 60 unit/L LAB CHEMISTRY METHOD 02/14/2025 9:15 AM [facility] Alkaline Phosphatase 70 42 - 121 unit/L LAB CHEMISTRY METHOD 02/14/2025 9:15 AM EDT [facility] Total Protein 5.5(L) 6.0 - 8.0 g/dL LAB CHEMISTRY METHOD 02/14/2025 9:15 AM T [facility] Albumin 2.5(L) 3.2 - 5.0 g/dL LAB CHEMISTRY METHOD 02/14/2025 9:15 AM [facility] Total Bilirubin 0.5 0.0 - 1.4 mg/dL LAB CHEMISTRY METHOD 02/14/2025 9:15 AM [facility] Blood Venous blood specimen / Unknown Venipuncture / Unknown 02/14/2025 6:22 AM EDT 02/14/2025 8:24 AM EDT Jeronimo Norrsi MD LAB BLOOD ORDERABLES Final Resu lt [facility] [address] [place] [address], [place] [phone] * (ABNORMAL) Complete blood count (02/14/2025 6:22 AM EDT) WBC 14.2(H) 4.8 - 10.8 K/mcL LAB HEMETOLOGY METHOD 02/14/2025 8:46 AM [facility] RBC 3.30(L) 3.80 - 4.80 M/mcL LAB HEMETOLOGY METHOD 02/14/2025 8:46 AM [facility] Hemoglobin 10.0(L) 11.5 - 16.0 g/dL LAB HEMETOLOGY METHOD 02/14/2025 8:46 AM [facility] Hematocrit 31.6(L) 35.0 - 47.0 % LAB HEMETOLOGY METHOD 02/14/2025 8:46 AM T [facility] MCV 96.0 79.0 - 98.0 FL LAB HEMETOLOGY METHOD 02/14/2025 8:46 AM EDT [facility] MCH 30.4 27.0 - 32.0 pcg LAB HEMETOLOGY METHOD 02/14/2025 8:46 AM EDT [facility] MCHC 31.6(L) 32.0 - 37.0 g/dL LAB HEMETOLOGY METHOD 02/14/2025 8:46 AM EDT [facility] RDW 13.1 11.0 - 15.0 % LAB HEMETOLOGY METHOD 02/14/2025 8:46 AM EDT [facility] Platelets 321 130 - 400 K/mcL LAB HEMETOLOGY METHOD 02/14/2025 8:46 AM EDT [facility] MPV 10.6 7.0 - 11.0 FL LAB HEMETOLOGY METHOD 02/14/2025 8:46 AM EDT [facility] NRBC 0.0 <1.0 % LAB HEMETOLOGY METHOD 02/14/2025 8:46 AM EDT [facility] NRBC Absolute 0.00 <0.10 K/mcL LAB HEMETOLOGY METHOD 02/14/2025 8:46 AM T [facility] Blood Venous blood specimen / Unknown Venipuncture / Unknown 02/14/2025 6:22 AM EDT 02/14/2025 8:34 AM EDT us Jeronimo Norris MD LAB BLOOD ORDERABLES Final Resu lt [facility] [address] [place] [address], documented in this encounter Visit Diagnoses Diagnosis Essential (primary) hypertension Unspecified essential hypertension Gastro-esophageal reflux disease without esophagitis documented in this encounter Care Teams Developmental Education Instructor Relationship Specialty Start Date End Date Jeronimo Norris MD [address] [place] [address] PCP - General Internal Medicine 02/10/25 documented as of this encounter
--- OUTSIDE RECORDS SUMMARY | 2025-02-25 13:58 | XMS_ITS | Encounter Summary ---
Author Organization [facility] Address [address] [place] [address] Care Team Providers Care Mentally Impaired Teacher Name Role Phone Christal Celestin MD Primary Care Provider Africa Ibrahim MD Primary Care Provider Un available Jose Lopez MD Primary Care Provider Unavail Javier Patel MD Primary Care Provider Reason for Visit * Reason Onset Date Comments Faxed Refill 05/04/2018 Encounter Details Date Type Department Care Team Description 05/04/2018 Refill Adult Medicine [address] [address] Christal Celestin MD Faxed Refill Social History [...] an upcoming appointment? No-unable to reach left [facility] to call for appointment due to [...] the RX # listed on the fax? [id number] Patients current insurance carrier is: Payor: [facility] FFS / Plan: [facility] MEDICARE PREMIUM $15 [place] / Product Type: MEDICARE [id number] documented in this encounter Plan of Treatment Not on file documented as of this encounter Visit Diagnoses Not on filedocumented in this encounter Care Teams Mentally Impaired Teacher Relationship Specialty Start Date End Date Christal Celestin MD PCP - General Internal Medicine 11/15/15 11/30/18 Africa Blankenship MD PCP - General Internal Medicine 12/01/18 9 Jose Lopez MD PCP - General Internal Medicine 01/19/19 04/11/20 Javier Eller MD [address] [place] [id number] PCP - General Internal Medicine 04/12/20 documented as of this encounter
--- OUTSIDE RECORDS SUMMARY | 2025-02-25 13:58 | XMS_ITS | Encounter Summary ---
Author Organization [facility] Address [address] [place] [address] Care Team Providers Care Gusset Folder Name Role Phone Christal Celestin MD Primary Care Provider Africa Ibrahim MD Primary Care Provider Un available Jose Lopez MD Primary Care Provider Unavail able Javier Eller MD Primary Care Provider [phone] Encounter Details Date Type Department Care Team Description 05/11/2018 Transfer Records Medical Records [address] [place] [id number] Abstract, Provider Social History Tobacco Use Types [...] on filedocumented in this encounter Care Teams Gusset Folder Relationship Specialty Start Date End Date Christal Celestin MD PCP - General Internal Medicine 11/15/15 11/30/18 Africa Blankenship MD PCP - General Internal Medicine 12/01/18 9 Jose Lopez MD PCP - General Internal Medicine 01/19/19 04/11/20 Javier Eller MD [address] [place] [address] [id number] PCP - General Internal Medicine 04/12/20 documented as of this encounter
--- OUTSIDE RECORDS SUMMARY | 2025-02-25 13:58 | XMS_ITS | Encounter Summary ---
Author Organization [facility] Address [address] [place] [phone] Care Team Providers Care Barrelhead Inspector Name Role Phone Jeronimo Norris MD Primary Care Provider [phone] Encounter Details Date Type Department Care Team (Late st Contact Info) Description 02/16/2025 Lab Requisition [facility] - Main Lab [address] [facility] [place] [address] Jeronimo Norris MD [address] [place] [address] Essential (primary) hypertension; Gastro-esophageal reflux [...] Associated Diagnosis Comments COMPLETE BLOOD COUNT Routine 02/17/2025 6:11 AM EDT Essential (primary) hypertension Gastro-esophageal reflux disease without esophagitis BASIC METABOLIC PANEL Routine 02/17/2025 6:11 AM EDT Essential (primary) hypertension Gastro-esophageal reflux disease without esophagitis documented in this encounter Results * (ABNORMAL) Basic metabolic panel (02/17/2025 6:11 AM EDT) Sodium 139 133 - 145 mmol/L LAB CHEMISTRY METHOD 02/17/2025 10:[address] [facility] Potassium 4.1 3.5 - 5.5 mmol/L LAB CHEMISTRY METHOD 02/17/2025 10:[address] [facility] Chloride 104 96 - 110 mmol/L LAB CHEMISTRY METHOD 02/17/2025 10:[address] [facility] CO2 29 21 - 32 mmol/L LAB CHEMISTRY METHOD 02/17/2025 10:[address] [facility] Anion Gap 6 3 - 11 LAB CHEMISTRY METHOD 02/17/2025 10:[address] [facility] Glucose 79 70 - 100 mg/dL LAB CHEMISTRY METHOD 02/17/2025 10:[address] [facility] BUN 19 5 - 25 mg/dL LAB CHEMISTRY METHOD 02/17/2025 10:[address] [facility] Creatinine 0.41(L) 0.50 - 1.10 mg/dL LAB CHEMISTRY METHOD 02/17/2025 10:[address] [facility] eGFR 98 >=60 mL/min/1. 73m2 LAB CHEMISTRY METHOD 02/17/2025 10:[address] [facility] Comment:Calculation based on the Chronic Kidney Disease Epidemiology Collaboration (CKD-EPI) equation refit without adjustment for race. BUN/Creatinine Ratio 46.3 LAB CHEMISTRY METHOD 02/17/2025 10:[address] [facility] Calcium 8.7 8.5 - 10.5 mg/dL LAB CHEMISTRY METHOD 02/17/2025 10:[address] [facility] Blood Venous blood specimen / Unknown Venipuncture / Unknown 02/17/2025 6:11 AM EDT 02/17/2025 8:50 AM EDT us Jeronimo Norris MD LAB BLOOD ORDERABLES Final Resu lt [facility] [address] [place] [address], * (ABNORMAL) Complete blood count (02/17/2025 6:11 AM EDT) [facility] WBC 8.3 4.8 - 10.8 K/mcL LAB HEMETOLOGY METHOD 02/17/2025 9:03 AM EDT [facility] RBC 2.90(L) 3.80 - 4.80 M/mcL LAB HEMETOLOGY METHOD 02/17/2025 9:03 AM EDT [facility] Hemoglobin 9.2(L) 11.5 - 16.0 g/dL LAB HEMETOLOGY METHOD [facility]/17[facility] Hematocrit 28.0(L) 35.0 - 47.0 % LAB HEMETOLOGY METHOD 02/17/2025 9:03 [facility] MCV 95.6 79.0 - 98.0 FL LAB HEMETOLOGY METHOD 02/17/2025 9:03 [facility] MCH 31.4 27.0 - 32.0 pcg LAB HEMETOLOGY METHOD 02/17/2025 9:[address] [facility] MCHC 32.9 32.0 - 37.0 g/dL LAB HEMETOLOGY METHOD 02/17/2025 9:03 [facility] RDW 13.6 11.0 - 15.0 % LAB HEMETOLOGY METHOD 02/17/2025 9:03 [facility] Platelets 403(H) 130 - 400 K/mcL LAB HEMETOLOGY METHOD 02/17/2025 9:03 [facility] MPV 10.4 7.0 - 11.0 FL LAB HEMETOLOGY METHOD 02/17/2025 9:03 AM EDT [facility] NRBC 0.0 <1.0 % LAB HEMETOLOGY METHOD 02/17/2025 9:03 AM EDT [facility] NRBC Absolute 0.00 <0.10 K/mcL LAB HEMETOLOGY METHOD 02/17/2025 9:03 AM EDT [facility] Blood Venous blood specimen / Unknown Venipuncture / Unknown 02/17/2025 6:11 AM EDT 02/17/2025 8:50 AM EDT Jeronimo Norrsi MD LAB BLOOD ORDERABLES Final Resu lt [facility] [address] [place] [address], documented in this encounter Visit Diagnoses Diagnosis Essential (primary) hypertension Unspecified essential hypertension Gastro-esophageal reflux disease without esophagitis documented in this encounter Care Teams Barrelhead Inspector Relationship Specialty Start Date End Date Jeronimo Norris MD [address] [place] [address] PCP - General Internal Medicine 02/10/25 documented as of this encounter
--- OUTSIDE RECORDS SUMMARY | 2025-02-25 13:58 | XMS_ITS | Encounter Summary ---
Author Organization [facility] Address [address] [place] [address] Care Team Providers Care Flow Coordinator Name Role Phone Name, Rafael TAVERA Primary Care Provider Christal Piedra MD Primary Care Provider Africa Ibrahim MD Primary Care Provider Un available Jose Lopez MD Primary Care Provider Unavail Javier Patel MD Primary Care Provider [phone] Reason for Visit * Reason Onset Date Comments Wrist Pain 05/12/2014 fell, hurt right wrist Encounter Details Date Type Department Care Team Description 05/12/2014 Telephone Adult [address] [id number] Name, MD Rafael Wrist Pain (fell, hurt [...] fell on Friday05/09/14 PCP: Rafael Name Payor: [facility] FFS / Plan: [facility] MEDICARE PLUS $15 [place] / Product Type: MEDICARE [id number] documented in this encounter Plan of Treatment Not on file documented as of this encounter Visit Diagnoses Not on filedocumented in this encounter Care Teams Flow Coordinator Relationship Specialty Start Date End Date Name, MD Rafael PCP - General 12/13/09 11/14/15 Christal Celestin MD PCP - General Internal Medicine 11/15/15 11/30/18 Africa Blankenship MD PCP - General Internal Medicine 12/01/18 9 Jose Lopez MD PCP - General Internal Medicine 01/19/19 04/11/20 Javier Eller MD [address] [place] [id number] PCP - General Internal Medicine 04/12/20 documented as of this encounter
--- OUTSIDE RECORDS SUMMARY | 2025-02-25 13:58 | XMS_ITS | Encounter Summary ---
Author Organization [facility] Address [address] [place] [address] Care Team Providers Care Drag Car Racer Name Role Phone Jeronimo Norris MD Primary Care Provider [phone] Encounter Details Date Type Department Care Team (Late st Contact Info) Description 02/20/2025 Lab Requisition [facility] - Main Lab [address] [facility] [place] [address] Jeronimo Norris MD [address] [place] [address] Essential (primary) hypertension; Gastro-esophageal reflux [...] Associated Diagnosis Comments COMPLETE BLOOD COUNT Routine 02/21/2025 5:59 AM EDT Essential (primary) hypertension Gastro-esophageal reflux disease without esophagitis COMPREHENSIVE METABOLIC PANEL Routine 02/21/2025 5:59 AM EDT Essential (primary) hypertension Gastro-esophageal reflux disease without esophagitis documented in this encounter Results * (ABNORMAL) Comprehensive metabolic panel (02/21/2025 5:59 AM EDT) Sodium 139 133 - 145 mmol/L LAB CHEMISTRY METHOD 02/21/2025 12:55 PM [facility] Potassium 4.1 3.5 - 5.5 mmol/L LAB CHEMISTRY METHOD 02/21/2025 12:55 PM [facility] Chloride 102 96 - 110 mmol/L LAB CHEMISTRY METHOD 02/21/2025 12:55 PM [facility] CO2 27 21 - 32 mmol/L LAB CHEMISTRY METHOD 02/21/2025 12:55 PM [facility] Anion Gap 10 3 - 11 LAB CHEMISTRY METHOD 02/21/2025 12:55 PM [facility] Glucose 78 70 - 100 mg/dL LAB CHEMISTRY METHOD 02/21/2025 12:55 PM [facility] BUN 20 5 - 25 mg/dL LAB CHEMISTRY METHOD 02/21/2025 12:55 PM [facility] Creatinine 0.56 0.50 - 1.10 mg/dL LAB CHEMISTRY METHOD 02/21/2025 12:55 PM [facility] eGFR 91 >=60 mL/min/1. 73m2 LAB CHEMISTRY METHOD 02/21/2025 12:55 PM [facility] Comment:Calculation based on the Chronic Kidney Disease Epidemiology Collaboration (CKD-EPI) equation refit without adjustment for race. BUN/Creatinine Ratio 35.7 LAB CHEMISTRY METHOD 02/21/2025 12:55 PM [facility] Calcium 8.8 8.5 - 10.5 mg/dL LAB CHEMISTRY METHOD 02/21/2025 12:55 PM [facility] AST (SGOT) 15 10 - 42 unit/L LAB CHEMISTRY METHOD 02/21/2025 12:55 PM [facility] ALT (SGPT) 14 10 - 60 unit/L LAB CHEMISTRY METHOD 02/21/2025 12:55 PM [facility] Alkaline Phosphatase 79 42 - 121 unit/L LAB CHEMISTRY METHOD 02/21/2025 12:55 PM EDT [facility] Total Protein 5.7(L) 6.0 - 8.0 g/dL LAB CHEMISTRY METHOD 02/21/2025 12:55 PM EDT [facility] Albumin 2.6(L) 3.2 - 5.0 g/dL LAB CHEMISTRY METHOD 02/21/2025 12:55 PM EDT [facility] Total Bilirubin 0.3 0.0 - 1.4 mg/dL LAB CHEMISTRY METHOD 02/21/2025 12:55 PM EDT [facility] Blood Venous blood specimen / Unknown 02/21/2025 5:59 AM EDT 02/21/2025 11:33 AM EDT us Jeronimo Norris MD LAB BLOOD ORDERABLES Final Resu lt [facility] [address] [place] [address], [place] [phone] * (ABNORMAL) Complete blood count (02/21/2025 5:59 AM EDT) WBC 9.2 4.8 - 10.8 K/mcL LAB HEMETOLOGY METHOD 02/21/2025 1:48 PM EDT [facility] RBC 3.10(L) 3.80 - 4.80 M/mcL LAB HEMETOLOGY METHOD 02/21/2025 1:48 PM EDT [facility] Hemoglobin 9.6(L) 11.5 - 16.0 g/dL LAB HEMETOLOGY METHOD 02/21/2025 1:48 PM EDT [facility] Hematocrit 31.1(L) 35.0 - 47.0 % LAB HEMETOLOGY METHOD 02/21/2025 1:48 PM EDT [facility] MCV 100.0(H) 79.0 - 98.0 FL LAB HEMETOLOGY METHOD 02/21/2025 1:48 PM EDT [facility] MCH 30.9 27.0 - 32.0 pcg LAB HEMETOLOGY METHOD 02/21/2025 1:48 PM EDT [facility] MCHC 30.9(L) 32.0 - 37.0 g/dL LAB HEMETOLOGY METHOD 02/21/2025 1:48 PM EDT [facility] RDW 14.4 11.0 - 15.0 % LAB HEMETOLOGY METHOD 02/21/2025 1:48 PM EDT [facility] Platelets 563(H) 130 - 400 K/mcL LAB HEMETOLOGY METHOD 02/21/2025 1:48 PM EDT [facility] MPV 9.9 7.0 - 11.0 FL LAB HEMETOLOGY METHOD 02/21/2025 1:48 PM EDT [facility] NRBC 0.0 <1.0 % LAB HEMETOLOGY METHOD 02/21/2025 1:48 PM EDT [facility] NRBC Absolute 0.00 <0.10 K/mcL LAB HEMETOLOGY METHOD 02/21/2025 1:48 PM EDT [facility] Blood Venous blood specimen / Unknown 02/21/2025 5:59 AM EDT 02/21/2025 11:33 AM EDT us Jeronimo Norris MD LAB BLOOD ORDERABLES Final Resu lt [facility] [address] [place] [address], documented in this encounter Visit Diagnoses Diagnosis Essential (primary) hypertension Unspecified essential hypertension Gastro-esophageal reflux disease without esophagitis documented in this encounter Care Teams Drag Car Racer Relationship Specialty Start Date End Date Jeronimo Norris MD [address] [place] [address] PCP - General Internal Medicine 02/10/25 documented as of this encounter
--- OUTSIDE RECORDS SUMMARY | 2025-02-25 13:58 | XMS_ITS | Encounter Summary ---
Author Organization [facility] Address [address] [place] [phone] Care Team Providers Care Tea Tree Farmer Name Role Phone Jeronimo Norris MD Primary Care Provider [phone] Encounter Details Date Type Department Care Team (Late st Contact Info) Description 02/23/2025 Lab Requisition [facility] - Main Lab [address] [facility] [place] [address] Jeronimo Norris MD [address] [place] [address] Essential (primary) hypertension; Gastro-esophageal reflux [...] Associated Diagnosis Comments COMPLETE BLOOD COUNT Routine 02/24/2025 6:35 AM EDT Essential (primary) hypertension Gastro-esophageal reflux disease without esophagitis BASIC METABOLIC PANEL Routine 02/24/2025 6:35 AM EDT Essential (primary) hypertension Gastro-esophageal reflux disease without esophagitis documented in this encounter Results * (ABNORMAL) Basic metabolic panel (02/24/2025 6:35 AM EDT) Sodium 138 133 - 145 mmol/L LAB CHEMISTRY METHOD 02/24/2025 9:17 AM [facility] Potassium 4.1 3.5 - 5.5 mmol/L LAB CHEMISTRY METHOD 02/24/2025 9:17 AM [facility] Chloride 102 96 - 110 mmol/L LAB CHEMISTRY METHOD 02/24/2025 9:17 AM [facility] CO2 29 21 - 32 mmol/L LAB CHEMISTRY METHOD 02/24/2025 9:17 AM [facility] Anion Gap 7 3 - 11 LAB CHEMISTRY METHOD 02/24/2025 9:17 AM [facility] Glucose 84 70 - 100 mg/dL LAB CHEMISTRY METHOD 02/24/2025 9:17 AM [facility] BUN 20 5 - 25 mg/dL LAB CHEMISTRY METHOD 02/24/2025 9:17 AM [facility] Creatinine 0.48(L) 0.50 - 1.10 mg/dL LAB CHEMISTRY METHOD 02/24/2025 9:17 AM [facility] eGFR 95 >=60 mL/min/1. 73m2 LAB CHEMISTRY METHOD 02/24/2025 9:17 AM [facility] Comment:Calculation based on the Chronic Kidney Disease Epidemiology Collaboration (CKD-EPI) equation refit without adjustment for race. BUN/Creatinine Ratio 41.7 LAB CHEMISTRY METHOD 02/24/2025 9:17 AM [facility] Calcium 8.9 8.5 - 10.5 mg/dL LAB CHEMISTRY METHOD 02/24/2025 9:17 AM [facility] Blood Venous blood specimen / Unknown Venipuncture / Unknown 02/24/2025 6:35 AM EDT 02/24/2025 8:22 AM EDT us Jeronimo Norris MD LAB BLOOD ORDERABLES Final Resu lt [facility] [address] [place] [address], * (ABNORMAL) Complete blood count (02/24/2025 6:35 AM EDT) [facility] WBC 7.8 4.8 - 10.8 K/mcL LAB HEMETOLOGY METHOD 02/24/2025 8:[address] [facility] RBC 3.10(L) 3.80 - 4.80 M/mcL LAB HEMETOLOGY METHOD 02/24/2025 8:[address] [facility] Hemoglobin 9.6(L) 11.5 - 16.0 g/dL LAB HEMETOLOGY METHOD 02/24/2025 8:[address] [facility] Hematocrit 29.9(L) 35.0 - 47.0 % LAB HEMETOLOGY METHOD 02/24/2025 8:[address] [facility] MCV 97.1 79.0 - 98.0 FL LAB HEMETOLOGY METHOD 02/24/2025 8:[address] [facility] MCH 31.2 27.0 - 32.0 pcg LAB HEMETOLOGY METHOD 02/24/2025 8:[address] [facility] MCHC 32.1 32.0 - 37.0 g/dL LAB HEMETOLOGY METHOD 02/24/2025 8:[address] [facility] RDW 14.3 11.0 - 15.0 % LAB HEMETOLOGY METHOD 02/24/2025 8:[address] [facility] Platelets 537(H) 130 - 400 K/mcL LAB HEMETOLOGY METHOD 02/24/2025 8:[address] [facility] MPV 9.9 7.0 - 11.0 FL LAB HEMETOLOGY METHOD 02/24/2025 8:[address] [facility] NRBC 0.0 <1.0 % LAB HEMETOLOGY METHOD 02/24/2025 8:[address] [facility] NRBC Absolute 0.00 <0.10 K/mcL LAB HEMETOLOGY METHOD 02/24/2025 8:[address] [facility] Blood Venous blood specimen / Unknown Venipuncture / Unknown 02/24/2025 6:35 AM EDT 02/24/2025 8:22 AM EDT Jeronimo Norris MD LAB BLOOD ORDERABLES Final Resu lt [facility] [address] [place] [address], documented in this encounter Visit Diagnoses Diagnosis Essential (primary) hypertension Unspecified essential hypertension Gastro-esophageal reflux disease without esophagitis documented in this encounter Care Teams Tea Tree Farmer Relationship Specialty Start Date End Date Jeronimo Norris MD [address] [place] [address] PCP - General Internal Medicine 02/10/25 documented as of this encounter
--- OUTSIDE RECORDS SUMMARY | 2025-02-25 13:58 | XMS_ITS ---
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 Pcp:Ismael Davis MD Subjective: * Chief Complaints: [...] surgical procedures to prevent recurrence.? * Procedure Codes:?82534 Avuls ion Plate, Modifiers: T1 * Follow Up:?3 Months * Images: * The named appointment provid er may or may not be the originator of this progress note, and it is not deemed complete until electronically signed by the appointment provider. Sign off status: Pending * Provider:Alexander Riddle DPM Date:? 024 Generated for Astrid mello/Jason/Rhett on:?02/25/2025 01:58 PM EDT History and Physical Notes * [...]
--- OUTSIDE RECORDS SUMMARY | 2025-02-25 13:58 | XMS_ITS | Encounter Summary ---
Author Organization [facility] Address [address] [place] [address] Care Team Providers Care Electronics Manufacturer Name Role Phone Javier Eller MD Primary Care Provider [phone] Reason for Visit * Reason Onset Date Comments Annual Wellness Outreach 07/18/2021 Encounter Details Date Type Department Care Team Description 07/18/2021 Telephone Adult [address] [address] Kalyani Chin PA-C Annual Wellness [...] First attempt pt excluded stated not with [employer] anymore stop calling. documented in this encounter Plan of Treatment Not on file documented as of this encounter Visit Diagnoses Not on filedocumented in this encounter Care Teams Electronics Manufacturer Relationship Specialty Start Date End Date Javier Eller MD [address] [place] [address] PCP - General Internal Medicine 04/12/20 documented as of this encounter
--- OUTSIDE RECORDS SUMMARY | 2025-02-25 13:58 | XMS_ITS | Encounter Summary ---
Author Organization [facility] Address [address] [place] [address] Care Team Providers Care Encoding Clerk Name Role Phone Christal Celestin MD Primary Care Provider Africa Ibrahim MD Primary Care Provider Un available Jose Lopez MD Primary Care Provider Javier Jurado MD Primary Care Provider [phone] Reason for Visit * Reason Onset Date Comments refill request 01/10/2017 Encounter Details Date Type Department Care Team Description 01/10/2017 Refill Adult Medicine [address] [id number] Christal Celestin MD refill request Social History [...] THE PATIENT'S LAST APPOINTMENT IN ADULT MEDICINE? [id number] WHEN WAS THE LAST TIME THE PATIENT SAW THEIR PCP? Same as above Does patient have an upcoming appointment? Yes [id number] (THE MEDICATION REQUESTED IS ON THE MED LIST ABOVE) All of the medications requested were on the CURRENT MEDS list Did you check the Pharmacy information above?: YES Patient wants: 90 -day supply Is this a mail order prescription request ? NO Patients current insurance carrier is: Payor: [facility] FFS / Plan: [employer] MEDICARE PREMIUM $15 [place] / Product Type: MEDICARE [id number] documented in this encounter Plan of Treatment Not on file documented as of this encounter Visit Diagnoses Not on filedocumented in this encounter Care Teams Encoding Clerk Relationship Specialty Start Date End Date Christal Celestin MD PCP - General Internal Medicine 11/15/15 11/30/18 Africa Blankenship MD PCP - General Internal Medicine 12/01/18 9 Jose Lopez MD PCP - General Internal Medicine 01/19/19 04/11/20 Javier Eller MD [address] [place] [address] [phone] PCP - General Internal Medicine 04/12/20 documented as of this encounter
--- OUTSIDE RECORDS SUMMARY | 2025-02-25 13:58 | XMS_ITS | Encounter Summary ---
Author Organization [facility] Address [address] [place] [address] Care Team Providers Care Gas Pump Attendant Name Role Phone Name, Rafael TAVERA Primary Care Provider Christal Piedra MD Primary Care Provider Africa Ibrahim MD Primary Care Provider Un available Jose Lopez MD Primary Care Provider Unavail able Javier Eller MD Primary Care Provider [phone] Encounter Details Date Type Department Care Team Description 10/19/2014 Inspector Water Pollution Control Report Medical Records [address] [place] [id number] Hyacinth Momin MD Social History Tobacco Use [...] on filedocumented in this encounter Care Teams Gas Pump Attendant Relationship Specialty Start Date End Date Name, MD Rafael PCP - General 12/13/09 11/14/15 Christal Celestin MD PCP - General Internal Medicine 11/15/15 11/30/18 Africa Blankenship MD PCP - General Internal Medicine 12/01/18 9 Jose Lopez MD PCP - General Internal Medicine 01/19/19 04/11/20 Javier Eller MD [address] [place] [phone] PCP - General Internal Medicine 04/12/20 documented as of this encounter
--- OUTSIDE RECORDS SUMMARY | 2025-02-25 13:58 | XMS_ITS | Encounter Summary ---
Author Organization [facility] Address [address] [place] [address] Care Team Providers Care Artificial Candy Maker Name Role Phone Jeronimo Norris MD Primary Care Provider [phone] Encounter Details Date Type Department Care Team (Late st Contact Info) Description 02/10/2025 Lab Requisition [facility] - Main Lab [address] [facility] [place] [address] Jeronimo Norris MD [address] [place] [address] Essential (primary) hypertension; Gastro-esophageal reflux [...] Associated Diagnosis Comments COMPLETE BLOOD COUNT Routine 02/10/2025 7:49 AM EDT Essential (primary) hypertension Gastro-esophageal reflux disease without esophagitis COMPREHENSIVE METABOLIC PANEL Routine 02/10/2025 7:49 AM EDT Essential (primary) hypertension Gastro-esophageal reflux disease without esophagitis documented in this encounter Results * (ABNORMAL) Comprehensive metabolic panel (02/10/2025 7:49 AM EDT) Sodium 138 133 - 145 mmol/L LAB CHEMISTRY METHOD 02/10/2025 10:19 AM [facility] Potassium 4.1 3.5 - 5.5 mmol/L LAB CHEMISTRY METHOD 02/10/2025 10:19 AM [facility] Chloride 102 96 - 110 mmol/L LAB CHEMISTRY METHOD 02/10/2025 10:19 AM [facility] CO2 29 21 - 32 mmol/L LAB CHEMISTRY METHOD 02/10/2025 10:19 AM [facility] Anion Gap 7 3 - 11 LAB CHEMISTRY METHOD 02/10/2025 10:19 AM [facility] Glucose 87 70 - 100 mg/dL LAB CHEMISTRY METHOD 02/10/2025 10:19 AM [facility] BUN 25 5 - 25 mg/dL LAB CHEMISTRY METHOD 02/10/2025 10:19 AM [facility] Creatinine 0.78 0.50 - 1.10 mg/dL LAB CHEMISTRY METHOD 02/10/2025 10:19 AM [facility] eGFR 76 >=60 mL/min/1. 73m2 LAB CHEMISTRY METHOD 02/10/2025 10:19 AM [facility] Comment:Calculation based on the??Chronic Kidney Disease Epidemiology Collaboration (CKD-EPI) equation refit??without adjustment for race. BUN/Creatinine Ratio 32.1 LAB CHEMISTRY METHOD 02/10/2025 10:19 AM [facility] Calcium 8.8 8.5 - 10.5 mg/dL LAB CHEMISTRY METHOD 02/10/2025 10:19 AM [facility] AST (SGOT) 16 10 - 42 unit/L LAB CHEMISTRY METHOD 02/10/2025 10:19 AM [facility] ALT (SGPT) 8(L) 10 - 60 unit/L LAB CHEMISTRY METHOD 02/10/2025 10:19 AM [facility] Alkaline Phosphatase 65 42 - 121 unit/L LAB CHEMISTRY METHOD 02/10/2025 10:19 AM EDT [facility] Total Protein 5.9(L) 6.0 - 8.0 g/dL LAB CHEMISTRY METHOD 02/10/2025 10:19 AM [facility] Albumin 2.7(L) 3.2 - 5.0 g/dL LAB CHEMISTRY METHOD 02/10/2025 10:19 AM [facility] Total Bilirubin 0.5 0.0 - 1.4 mg/dL LAB CHEMISTRY METHOD 02/10/2025 10:19 AM [facility] Blood Venous blood specimen / Unknown Venipuncture / Unknown 02/10/2025 7:49 AM EDT 02/10/2025 9:40 AM EDT Jeronimo Norris MD LAB BLOOD ORDERABLES Final Resu lt [facility] [address] [place] [address], [place] [phone] * (ABNORMAL) Complete blood count (02/10/2025 7:49 AM EDT) WBC 13.5(H) 4.8 - 10.8 K/mcL LAB HEMETOLOGY METHOD 02/10/2025 10:01 AM [facility] RBC 3.40(L) 3.80 - 4.80 M/mcL LAB HEMETOLOGY METHOD 02/10/2025 10:01 AM [facility] Hemoglobin 10.6(L) 11.5 - 16.0 g/dL LAB HEMETOLOGY METHOD 02/10/2025 10:01 AM [facility] Hematocrit 32.6(L) 35.0 - 47.0 % LAB HEMETOLOGY [facility] MCV 96.7 79.0 - 98.0 FL LAB HEMETOLOGY METHOD 02/10/2025 10:01 AM EDT [facility] MCH 31.5 27.0 - 32.0 pcg LAB HEMETOLOGY METHOD 02/10/2025 10:01 AM EDT [facility] MCHC 32.5 32.0 - 37.0 g/dL LAB HEMETOLOGY METHOD 02/10/2025 10:01 AM EDT [facility] RDW 12.9 11.0 - 15.0 % LAB HEMETOLOGY METHOD 02/10/2025 10:01 AM EDT [facility] Platelets 254 130 - 400 K/mcL LAB HEMETOLOGY METHOD 02/10/2025 10:01 AM [facility] MPV 11.2(H) 7.0 - 11.0 FL LAB HEMETOLOGY METHOD 02/10/2025 10:01 AM EDT [facility] NRBC 0.0 <1.0 % LAB HEMETOLOGY METHOD 02/10/2025 10:01 AM EDT [facility] NRBC Absolute 0.00 <0.10 K/mcL LAB HEMETOLOGY METHOD 02/10/2025 10:01 AM [facility] Blood Venous blood specimen / Unknown Venipuncture / Unknown 02/10/2025 7:49 AM EDT 02/10/2025 9:40 AM EDT us Jeronimo Norris MD LAB BLOOD ORDERABLES Final Resu lt [facility] [address] [place] [address], documented in this encounter Visit Diagnoses Diagnosis Essential (primary) hypertension Unspecified essential hypertension Gastro-esophageal reflux disease without esophagitis documented in this encounter Care Teams Artificial Candy Maker Relationship Specialty Start Date End Date Jeronimo Norris MD [address] [facility] [place] [address] PCP - General Internal Medicine 02/10/25 documented as of this encounter
--- OUTSIDE RECORDS SUMMARY | 2025-02-25 13:59 | XMS_ITS | Clinical Summary ---
Author Organization [address] Address [address] [place] [address] Phone Care Team Providers Care Forensics Analyst Name Role Phone Jeronimo Norris MD Primary Care Provider [phone] Encounters Date Type Department Care Team Description 02/23/2025 Lab Requisition [facility] Lab [address] [place] [phone] Jeronimo Norris MD Essential (primary) hypertension; Gastro-esophageal reflux disease without esophagitis 02/20/2025 Lab Requisition [facility] Lab [address] [place] [address] Jeronimo Norris MD Essential (primary) hypertension; Gastro-esophageal reflux disease without esophagitis 02/16/2025 Lab Requisition [facility] [address] [place] [address] Jeronimo Norris MD Essential (primary) hypertension; Gastro-esophageal reflux disease without esophagitis 02/13/2025 Lab Requisition [facility] [address] [place] [phone] Jeronimo Norris MD Essential (primary) hypertension; Gastro-esophageal reflux disease without esophagitis 02/10/2025 Lab Requisition [facility] [address] [place] [address] Jeronimo Norris MD Essential (primary) hypertension; Gastro-esophageal reflux disease without esophagitis from Last 3 Months Surgical History Surgery Date Site/Laterality Comments CHOLECYSTECTOMY age 19 PROCEDURE: HISTORICAL CHOLECYSTECTOMY COLONOSCOPY 03/14 PROCEDURE: SC COLONOSCOPY STOMA DX INCLUDING COLLJ SPEC SPX OTHER SURGICAL HISTORY 4/04 PROCEDURE: MAMMOGRAM TONSILLECTOMY ADENOIDECTOMY, BILATERAL MYRINGOTOMY AND TUBES PROCEDURE: SC TONSILLECTOMY & ADENOIDECTOMY <AGE 14 HYSTERECTOMY 1965 PROCEDURE: HISTORICAL HYSTERECTOMY; COMMENT: SHAYE FUENTES ESOPHAGOGASTRODUODENOSCOPY 2 PROCEDURE: SC ESOPHAGOGASTRODUODENOSCOPY TRANSORAL DIAGNOSTIC; COMMENT: normal on PPI rx. CARPAL TUNNEL RELEASE January, PROCEDURE: SC NEUROPLASTY &/TRANSPOS MEDIAN NRV CARPAL TUNNE; COMMENT: bilateral BLADDER SURGERY PROCEDURE: HISTORICAL BLADDER SURGERY; COMMENT: Dr. Reina ANKLE SURGERY - Left PROCEDURE: HISTORICAL ANKLE SURGERY; COMMENT: from fracture Medical History Medical History Date Comments Depressive disorder, not els ewhere classified 04/26/2006 DX:Depressive disorder, not elsewhere classified Herpes simplex without menti on of complication 04/26/2006 DX:Herpes simplex without me ntion of complication Primary localized osteoarthr osis, pelvic region and thigh 04/26/2006 DX:Primary localized osteoar throsis, pelvic region and thigh Primary localized osteoarthr osis, lower leg 04/26/2006 DX:Primary localized osteoar throsis, lower leg Hernia of other specified si dell of abdominal cavity without mention of obstruction or gangrene 04/26/2006 DX:Hernia of other specified sites of abdominal cavity without mention of obstruction or gangrene Keloid scar 04/26/2006 DX:Keloid scar Sciatica 04/30/2007 DX:Sciatica Polymyalgia ([facility]/HCC V24) 02/18/2008 DX:Gokul ymyalgia ([facility]); COMMENT: Onset fall 2006 - prednisone through 09/19 Inflammatory arthritis 09/28/2010 DX:Inflam matory arthritis Urinary incontinence 11/26/2011 DX:Urinary incontinence Rhinitis, allergic 05/30/2011 DX:Rhinitis, allergic Osteopenia 08/15/2010 DX:Osteopenia; C OMMENT: Jul 2010 BMD T scores -1.9 in LS spine and hip. Alendronate ? Caused hip pain and stomach ache? Major depression 07/05/2013 DX:Major depres ani Hyperlipidemia 02/11/2011 DX:Hyperlipidemi a History of carpal tunnel maciel fang of left wrist 02/24/2015 DX:History of carpal tunnel surgery of left wrist; COMMENT: Much better after surgery Esophageal reflux 11/05/2012 DX:Esophageal reflux DDD (degenerative disc disea se), cervical 07/12/2014 DX:DDD (degenerative disc di sease), cervical Hypothyroid 06/30/2020 DX:Hypothyroid Vitamin D deficiency 06/30/2020 DX:Vitamin D deficiency Family History Medical History Relation Name Comments Other: drug abuse Daughter 1 suici de 36 Heart attack Father 52 Heart failure Mother 86 Relation Name Status Comments Daughter 1 Daughter 2 Alive Daughter 3 Alive Daughter 4 Alive Father Mother CHF Son 1 Alive Son [...] on file Sexual Orientation Not on file Obstetrics History Plan of Treatment Health Maintenance Due Date Last Done Comments RSV Immunization Adult Patients (1 - 1-dose 75+ series) 2017 Zoster Vaccines (3 of 3) 06/30/2018 05/05/2018, 1010/2011 COVID-19 Vaccine ( season) 2024 Cholesterol Screening (Lipid Panel) 02/10/2025 Depression Screening 02/10/2025 Falls Risk Assessment 02/10/2025 Medicare Annual Wellness Visit 02/10/2025 Osteoporosis Screening (Bone Density Screening) 02/10/2025 Social Influencers of Health Screening 02/10/2025 Influenza Vaccine (Season Ended) 2025 06/27/2020, 06/26/2019, 07/04/2017, Additional history exists Hypertension/CHF/CAD Annual BMP Blood Test 02/24/2026 02/24/2025, 02/21/2025, 02/17/2025, Additional history exists DTaP,Tdap,and Td Vaccines (4 - Td or Tdap) 04/03/2026 04/03/2016, 01/28/2011, 04/12/1995 Pneumococcal Vaccine: 50+ Years Completed 08/27/2017, 01/17/2016, 07/13/2012, Additional history exists HIB Vaccines Aged Out No longer eligi ble based on patient's age to complete this topic HPV Vaccines Aged Out No longer eligi ble based on patient's age to complete this topic Hepatitis A Vaccines Aged Out No long er eligible based on patient's age to complete this topic Hepatitis B Vaccines Aged Out No long er eligible based on patient's age to complete this topic IPV Vaccines Aged Out No longer eligi ble based on patient's age to complete this topic MMR Vaccines Aged Out No longer eligi ble based on patient's age to complete this topic Meningococcal ACWY Vaccine Aged Out N o longer eligible based on patient's age to complete this topic Meningococcal B Vaccine Aged Out No l onger eligible based on patient's age to complete this topic RSV Immunization Patients Under 20 months Aged Out No longer eligible based on patient's age to complete this topic Varicella Vaccines Aged Out No longer eligible based on patient's age to complete this topic Procedures Procedure Name Priority Date/Time Associated Diagnosis Comments BASIC METABOLIC PANEL Routine 02/24/2025 6:35 AM EDT Essential (primary) hypertension Gastro-esophageal reflux disease without esophagitis COMPLETE BLOOD COUNT Routine 02/24/2025 6:35 AM EDT Essential (primary) hypertension Gastro-esophageal reflux disease without esophagitis COMPREHENSIVE METABOLIC PANEL Routine 02/21/2025 5:59 AM EDT Essential (primary) hypertension Gastro-esophageal reflux disease without esophagitis COMPLETE BLOOD COUNT Routine 02/21/2025 5:59 AM EDT Essential (primary) hypertension Gastro-esophageal reflux disease without esophagitis BASIC METABOLIC PANEL Routine 02/17/2025 6:11 AM EDT Essential (primary) hypertension Gastro-esophageal reflux disease without esophagitis COMPLETE BLOOD COUNT Routine 02/17/2025 6:11 AM EDT Essential (primary) hypertension Gastro-esophageal reflux disease without esophagitis COMPREHENSIVE METABOLIC PANEL Routine 02/14/2025 6:22 AM EDT Essential (primary) hypertension Gastro-esophageal reflux disease without esophagitis COMPLETE BLOOD COUNT Routine 02/14/2025 6:22 AM EDT Essential (primary) hypertension Gastro-esophageal reflux disease without esophagitis COMPREHENSIVE METABOLIC PANEL Routine 02/10/2025 7:49 AM EDT Essential (primary) hypertension Gastro-esophageal reflux disease without esophagitis COMPLETE BLOOD COUNT Routine 02/10/2025 7:49 AM EDT Essential (primary) hypertension Gastro-esophageal reflux disease without esophagitis from Last 3 Months Results * (ABNORMAL) Complete blood count (02/24/2025 6:35 AM EDT) Only the most recent of5 resultswithin the time period is included. WBC 7.8 4.8 - 10.8 K/mcL LAB HEMETOLOGY METHOD 02/24/2025 8:52 AM [facility] LAB RBC 3.10(L) 3.80 - 4.80 M/mcL LAB HEMETOLOGY METHOD 02/24/2025 8:52 AM [facility] LAB Hemoglobin 9.6(L) 11.5 - 16.0 g/dL LAB HEMETOLOGY METHOD 02/24/2025 8:52 AM [facility] LAB Hematocrit 29.9(L) 35.0 - 47.0 % LAB HEMETOLOGY METHOD 02/24/2025 8:52 AM [facility] LAB MCV 97.1 79.0 - 98.0 FL LAB HEMETOLOGY METHOD 02/24/2025 8:52 AM [facility] LAB MCH 31.2 27.0 - 32.0 pcg LAB HEMETOLOGY METHOD 02/24/2025 8:52 AM [facility] LAB MCHC 32.1 32.0 - 37.0 g/dL LAB HEMETOLOGY METHOD 02/24/2025 8:52 AM [facility] LAB RDW 14.3 11.0 - 15.0 % LAB HEMETOLOGY METHOD 02/24/2025 8:52 AM [facility] LAB Platelets 537(H) 130 - 400 K/mcL LAB HEMETOLOGY METHOD 02/24/2025 8:52 AM EDT [facility] LAB MPV 9.9 7.0 - 11.0 FL LAB HEMETOLOGY METHOD 02/24/2025 8:52 AM EDT [facility] LAB NRBC 0.0 <1.0 % LAB HEMETOLOGY METHOD 02/24/2025 8:52 AM EDT [facility] LAB NRBC Absolute 0.00 <0.10 K/mcL [facility] 02/24/2025 8:52 AM EDT [facility] LAB Blood Venous blood specimen / Unknown Venipuncture / Unknown 02/24/2025 6:35 AM EDT 02/24/2025 8:22 AM EDT us Jeronimo Norris MD LAB BLOOD ORDERABLES Final Resu lt [facility] [address] [place] [address], [place] [phone] * (ABNORMAL) Basic metabolic panel (02/24/2025 6:35 AM EDT) Only the most recent of2 resultswithin the time period is included. Sodium 138 133 - 145 mmol/L LAB CHEMISTRY METHOD 02/24/2025 9:17 AM [facility] LAB Potassium 4.1 3.5 - 5.5 mmol/L LAB CHEMISTRY METHOD 02/24/2025 9:17 AM [facility] LAB Chloride 102 96 - 110 mmol/L LAB CHEMISTRY METHOD 02/24/2025 9:17 AM [facility] LAB CO2 29 21 - 32 mmol/L LAB CHEMISTRY METHOD 02/24[facility]25 [facility] Anion Gap 7 3 - 11 LAB CHEMISTRY METHOD 02/24/2025 9:17 AM EDT [facility] Glucose 84 70 - 100 mg/dL LAB CHEMISTRY METHOD 02/24/2025 9:17 AM [facility] BUN 20 5 - 25 mg/dL LAB CHEMISTRY METHOD 02/24/2025 9:17 AM [facility] LAB Creatinine 0.48(L) 0.50 - 1.10 mg/dL LAB CHEMISTRY METHOD 02/24/2025 9:17 AM [facility] LAB eGFR 95 >=60 mL/min/1. 73m2 LAB CHEMISTRY METHOD 02/24/2025 9:17 AM [facility] LAB Comment:Calculation based on the Chronic Kidney Disease Epidemiology Collaboration (CKD-EPI) equation refit without adjustment for race. BUN/Creatinine Ratio 41.7 LAB CHEMISTRY METHOD 02/24/2025 9:17 AM [facility] LAB Calcium 8.9 8.5 - 10.5 mg/dL LAB CHEMISTRY METHOD 02/24/2025 9:17 AM [facility] LAB Blood Venous blood specimen / Unknown Venipuncture / Unknown 02/24/2025 6:35 AM EDT 02/24/2025 8:22 AM EDT us Jeronimo Norris MD LAB BLOOD ORDERABLES Final Resu lt [facility] [address] [place] [address], * (ABNORMAL) Comprehensive metabolic panel (02/21/2025 5:59 AM EDT) Only the most recent of3 resultswithin the time period is included. Sodium 139 133 - 145 mmol/L LAB CHEMISTRY METHOD 02/21/2025 12:55 PM [facility] LAB Potassium 4.1 3.5 - 5.5 mmol/L LAB CHEMISTRY METHOD 02/21/2025 12:55 PM [facility] LAB Chloride 102 96 - 110 mmol/L LAB CHEMISTRY METHOD 02/21/2025 12:55 PM [facility] LAB CO2 27 21 - 32 mmol/L LAB CHEMISTRY METHOD 02/21/2025 12:55 PM [facility] LAB Anion Gap 10 3 - 11 LAB CHEMISTRY METHOD 02/21/2025 12:55 PM [facility] LAB Glucose 78 70 - 100 mg/dL LAB CHEMISTRY METHOD 02/21/2025 12:55 PM [facility] BUN 20 5 - 25 mg/dL LAB CHEMISTRY METHOD 02/21/2025 12:55 PM [facility] LAB Creatinine 0.56 0.50 - 1.10 mg/dL LAB CHEMISTRY METHOD 02/21/2025 12:55 PM [facility] LAB eGFR 91 >=60 mL/min/1. 73m2 LAB CHEMISTRY METHOD 02/21/2025 12:55 PM [facility] LAB Comment:Calculation based on the Chronic Kidney Disease Epidemiology Collaboration (CKD-EPI) equation refit without adjustment for race. BUN/Creatinine Ratio 35.7 LAB CHEMISTRY METHOD 02/21/2025 12:55 PM [facility] LAB Calcium 8.8 8.5 - 10.5 mg/dL LAB CHEMISTRY METHOD 02/21/2025 12:55 PM [facility] LAB AST (SGOT) 15 10 - 42 unit/L LAB CHEMISTRY METHOD 02/21/2025 12:55 PM [facility] LAB ALT (SGPT) 14 10 - 60 unit/L LAB CHEMISTRY METHOD 02/21/2025 12:55 PM [facility] LAB Alkaline Phosphatase 79 42 - 121 unit/L LAB CHEMISTRY METHOD 02/21/2025 12:55 PM [facility] LAB Total Protein 5.7(L) 6.0 - 8.0 g/dL LAB CHEMISTRY METHOD 02/21/2025 12:55 PM [facility] LAB Albumin 2.6(L) 3.2 - 5.0 g/dL LAB CHEMISTRY METHOD 02/21/2025 12:55 PM EDT [facility] Total Bilirubin 0.3 0.0 - 1.4 mg/dL LAB CHEMISTRY METHOD 02/21/2025 12:55 PM EDT [facility] LAB Blood Venous blood specimen / Unknown 02/21/2025 5:59 AM EDT 02/21/2025 11:33 AM EDT us Jeronimo Norris MD LAB BLOOD ORDERABLES Final Resu lt [facility] [address] [place] [address], from Last 3 Months Insurance [employer] Care Teams Forensics Analyst Relationship Specialty Start Date End Date Jeronimo Norris MD [address] [place] [address] PCP - General Internal Medicine 02/10/25
--- OUTSIDE RECORDS SUMMARY | 2025-02-25 13:59 | XMS_ITS ---
Author Organization [facility] Address [address] [facility] [place] [address] Care Team Providers Care Motor Vehicle Salesperson Name Role Phone Ismael Davis MD Primary Care Provider Kaiser Cerna [phone] REASON FOR VISIT cx 08/05 Encounters Encounter Location Date Provider Diagnosis [facility] [address] [place] [address] 08/03/2024 Kaiser Riddle Plan Of Treatment No Information Progress Notes * Vero CONNELLYDOB: [birth year] (83 yo F)Acc No.[id number]:08/03/2024 Patient:?DarrellVero :1940???Age:83 Y???Sex:Female Address:[address], [place], [address] * true * Date:? Generated for Printi ng/Facoreyg/eTransmitting on:?02/25/2025 01:58 PM EDT
--- OUTSIDE RECORDS SUMMARY | 2025-02-25 13:59 | XMS_ITS ---
Author Organization [facility] Address [address] [facility] [place] [address] Care Team Providers Care Placing Judge Name Role Phone Ismael Davis MD Primary Care Provider Kaiser Cerna Unavailable [phone] Allergies Allergen (clinical drug ingredient) Drug/Non Drug [...] 024 Encounters Encounter Location Date Provider Diagnosis [facility] [address] [place] [address] 05/03/2024 Kaiser Riddle Tinea unguium B35.1 ; [...] * Vero CONNELLYDOB: [birth year] (83 yo F)Acc No.[id number]:05/03/2024 Progress Note Patient:?DarrellAguilaly Provider:?Kaiser Riddle DPM :1940???Age:83 Y???Sex:Female D ate:05/03/2024 Address:[address], [place] , [id number] Pcp:Ismael Davis MD Subjective: * Chief Complaints: [...] Exercise. ?Marital status: . ?Occupation: retired- [employer]. * Medications:?TakingAlendrona te Sodium 70 MG Tablet [...] surgical procedures to prevent recurrence.? * Procedure Codes:?08014 Avuls ion Plate, Modifiers: T1 * Preventive [...] DPM Date:? 024 Generated for Astrid mello/Faxing/eTransmitting on:?02/25/2025 01:58 PM EDT History and Physical [...]
--- NOTE | 2025-02-25 14:10 | A.OFFVIS_ITS ---
Intake Visit Reasons: PO-s/p rt hip IM Nail on 02/08/25 NE Intake Note: Vero is a 84 year old female who presents today for a post op appointment s/p right hip IM Nail 02/08/25 NE. Patient reports she is having pain in her hip. It has been keeping her up at night. Patient mentions that she is working with PT [facility] [place] [facility]. Allergies naproxen [NAPROXEN] Allergy (Intermediate, Verified 02/25/25 14:12) BLISTERS IN MOUTH Sulfa (Sulfonamide Antibiotics) [SULFA (SULFONAMIDE ANTIBIOTICS)] Allergy (Intermediate, Verified 02/25/25 14:12) BLISTERS ON TONGUE HPI HPI PO-s/p rt hip IM Nail on 02/08/25 NE: Details: Ms. Ramírez is an 84-year-old female who presents to the office today for routine follow-up status post right hip IM nail performed on 02/08/[address] Pardo. Patient reports that she is currently residing at a rehab facility working with physical therapy. She has been weight-bearing as tolerated but reports difficulty due to pain. She presents to the office today in a wheelchair from the rehab facility. She is concerned that she may be discharged home early next week. She does not feel safe with this. [facility] Medical History Dyspnea on exertion Bronchitis Hyperlipidemia Hypertension Polymyalgia rheumatica Surgical History Hx of cholecystectomy Hx of hysterectomy Family History Mother CHF (congestive heart failure) Social History Household Members: Spouse Housing: House Do you presently have visiting nurse or other home services: No Alcohol intake: current Alcohol intake frequency: holidays/special occasions only Patient Tobacco Use Status: Former Tobacco user Tobacco use type: Cigarette Cigarettes Per Day: 15 Years Smoked: 4 e-Cigarette/Vaping Use: Never Used Second Hand Smoke Exposure: No Substance Use Type: Marijuana Advance Directives Date on File: 11/24/23 service: No Current occupational status: retired Review of Systems Const All systems reviewed & are unremarkable except as noted in HPI and below Physical Exam Const General: cooperative, healthy appearing and no acute distress Resp Effort & Inspection: normal respiratory effort and able to speak in complete sentences Extrem Other: Right hip incision sites are clean dry and intact. [place] intact. Pain with internal and external rotation. Difficulty with quad weakness performing a straight leg raise. Able to dorsiflex and flex. NVI. Assessment & Plan Assessment & Plan (1) Closed intertrochanteric fracture of right femur: Code(s): S72.141A - Displaced intertrochanteric fracture of right femur, initial encounter for closed fracture Category: Medical Plan Ms. Ramírez is an 84-year-old female who presents to the office today for routine follow-up status post right hip IM nail performed on 02/08/[address] Pardo. Patient reports that she is currently residing at a rehab facility w orking with physical therapy. She has been weight-bearing as tolerated but reports difficulty due to pain. She presents to the office today in a wheelchair from the rehab facility. She is concerned that she may be discharged home early next week. She does not feel safe with this. While in the office today, negra are removed and Steri-Strips were applied. At this time I recommended TTWB due to the patient having difficulty ambulating with pain. I did discuss the case with Dr. Pardo after the patient has appointment in which he had recommended weight-bearing as tolerated. A phone call has been placed to the rehab facility with update in weight-bearing status. Patient had no signs of infection while in the office today. She will continue working with physical therapy on glute core and quad strengthening as well as gait training with a walker. I would like to see her back in 4 weeks with repeat x-rays, sooner if needed. X-rays of the right femur which were obtained while in the office today and were reviewed by me, Sasha Douglas PA-C, revealed intact orthopedic hardware. Orders: Orders XR femur RT 2V 02/25/25 S72.141A - Displaced intertrochanteric fracture of right femur, initial encounter for closed fracture Coding Level of Care Code Global (30136) Diagnoses Closed intertrochanteric fracture of right femur S72.141A
== END 2025-02-25 14:40 | disposition home or self-care (01) ==
LOC: HO.HOS 13:56
PROVIDERS: Visit Provider Physician Assistant
DX: S72.141A Displaced intertrochanteric fracture of right femur, initial encounter for closed fracture (principal)
CPT/HCPCS: 99024

== ENCOUNTER → 2025-02-25 13:57 | Outpatient (BNV) | payer MEDICARE, SELFPAY | PROVIDERS: Visit Provider Radiology Diagnostic Radiology | DX: S72.141A Displaced intertrochanteric fracture of right femur, initial encounter for closed fracture (principal) | CPT/HCPCS: 73552 ==

== ENCOUNTER 2025-03-08 19:46 | Outpatient (REF) | payer MEDICARE, SELFPAY ==
--- OUTSIDE RECORDS SUMMARY | 2025-03-08 19:48 | XMS_ITS ---
Author Organization [facility] [place] Address [address] [facility] [place] [address] Care Team Providers Care Cfo Controller Name Role Phone Ismael Davis MD Primary Care Provider Kaiser Cerna Unavailable [phone] Allergies Allergen (clinical drug ingredient) Drug/Non Drug [...] 05/03/2024 Encounters Encounter Location Date Provider Diagnosis [facility] [place] [address] [place] [address] 05/03/2024 Kaiser Riddle Tinea unguium B35.1 ; [...] * Vero CONNELLYDOB: [birth year] (83 yo F)Acc No.[id number]:05/03/2024 Progress Note Patient:?DarrellAguilaly Provider:?Kaiser Riddle DPM :1940???Age:83 Y???Sex:Female D ate:05/03/2024 Address:[address], [place] , [id number] Pcp:Ismael Davis MD Subjective: * Chief Complaints: [...] Exercise. ?Marital status: . ?Occupation: retired- people [employer]. * Medications:?TakingAlendrona te Sodium 70 MG Tablet [...] surgical procedures to prevent recurrence.? * Procedure Codes:?41023 Avuls ion Plate, Modifiers: T1 * Preventive [...] DPM Date:? 024 Generated for Astrid mello/Faxing/eTransmitting on:?03/08/2025 07:48 PM EDT History and Physical Notes * [...]
== END 2025-03-08 19:47 | disposition home or self-care (01) ==
LOC: HO.HOSX 19:46
PROVIDERS: Visit Provider Physician Assistant
DX: Z13.89 Encounter for screening for other disorder (principal)

== ENCOUNTER 2025-03-10 13:41 | Outpatient (AMB) | payer MEDICARE, SELFPAY ==
--- OUTSIDE RECORDS SUMMARY | 2025-03-10 13:46 | XMS_ITS | Encounter Summary ---
Author Organization [facility] Address [address] [place] [address] Care Team Providers Care Framing Mill Operator Name Role Phone Jeronimo Norris MD Primary Care Provider [phone] Encounter Details Date Type Department Care Team (Late st Contact Info) Description 02/16/2025 Lab Requisition [facility] [address] [facility] [employer] [place] [address] Jeronimo Norris MD [address] [place] [address] Essential (primary) hypertension; Gastro-esophageal reflux [...] mmol/L LAB CHEMISTRY METHOD 02/17/2025 10:00 AM [facility] Potassium 4.1 3.5 - 5.5 mmol/L LAB CHEMISTRY METHOD 02/17/2025 10:00 AM [facility] Chloride 104 96 - 110 mmol/L LAB CHEMISTRY METHOD 02/17/2025 10:00 AM [facility] CO2 29 21 - 32 mmol/L LAB CHEMISTRY METHOD 02/17/2025 10:00 AM [facility] Anion Gap 6 3 - 11 LAB CHEMISTRY METHOD 02/17/2025 10:00 AM [facility] Glucose 79 70 - 100 mg/dL LAB CHEMISTRY METHOD 02/17/2025 10:00 AM [facility] BUN 19 5 - 25 mg/dL LAB CHEMISTRY METHOD 02/17/2025 10:00 AM [facility] Creatinine 0.41(L) 0.50 - 1.10 mg/dL LAB CHEMISTRY METHOD 02/17/2025 10:00 AM [facility] eGFR 98 >=60 mL/min/1. 73m2 LAB CHEMISTRY METHOD 02/17/2025 10:00 AM [facility] Comment:Calculation based on the Chronic Kidney Disease Epidemiology Collaboration (CKD-EPI) equation refit without adjustment for race. BUN/Creatinine Ratio 46.3 LAB CHEMISTRY METHOD 02/17/2025 10:00 AM [facility] Calcium 8.7 8.5 - 10.5 mg/dL LAB CHEMISTRY METHOD 02/17/2025 10:00 AM [facility] Blood Venous blood specimen / Unknown Venipuncture / Unknown 02/17/2025 6:11 AM EDT 02/17/2025 8:50 AM EDT us Jeronimo Norris MD LAB BLOOD ORDERABLES Final Resu lt [facility] [address] [place] [address], * (ABNORMAL) Complete blood count (02/17/2025 6:11 AM EDT) [facility] WBC 8.3 4.8 - 10.8 K/mcL LAB HEMETOLOGY METHOD 02/17/2025 9:03 AM EDT [facility] RBC 2.90(L) 3.80 - 4.80 M/mcL LAB HEMETOLOGY METHOD 02/17/2025 9:03 AM EDT [facility] Hemoglobin 9.2(L) 11.5 - 16.0 g/dL LAB HEMETOLOGY METHOD [facility]25 [facility] Hematocrit 28.0(L) 35.0 - 47.0 % LAB HEMETOLOGY METHOD 02/17/2025 9:[facility] MCV 95.6 79.0 - 98.0 FL LAB HEMETOLOGY METHOD 02/17/2025 [facility] MCH 31.4 27.0 - 32.0 pcg LAB HEMETOLOGY METHOD 02/17/2025 9:03 AM [facility] MCHC 32.9 32.0 - 37.0 g/dL LAB HEMETOLOGY METHOD 02/17/2025 9:[facility] RDW 13.6 11.0 - 15.0 % LAB HEMETOLOGY METHOD 02/17/2025 9:03 [facility] Platelets 403(H) 130 - 400 K/mcL LAB HEMETOLOGY METHOD 02/17/2025 9:03 [facility] MPV 10.4 7.0 - 11.0 FL LAB HEMETOLOGY METHOD 02/17/2025 9:03 AM EDT [facility] NRBC 0.0 <1.0 % LAB HEMETOLOGY METHOD 02/17/2025 9:03 AM EDT [facility] LAB NRBC Absolute 0.00 <0.10 K/mcL LAB HEMETOLOGY METHOD 02/17/2025 9:03 AM EDT [facility] Blood Venous blood specimen / Unknown Venipuncture / Unknown 02/17/2025 6:11 AM EDT 02/17/2025 8:50 AM EDT Jeronimo Norris MD LAB BLOOD ORDERABLES Final Resu lt [facility] [address] [place] [address], documented in this encounter Visit Diagnoses Diagnosis Essential (primary) hypertension Unspecified essential hypertension Gastro-esophageal reflux disease without esophagitis documented in this encounter Care Teams Framing Mill Operator Relationship Specialty Start Date End Date Jeronimo Norris MD [address] [place] [address] PCP - General Internal Medicine 02/10/25 documented as of this encounter
--- NOTE | 2025-03-10 13:59 | MHC.OFFVIS ---
Intake Visit Reasons: PO - right hip IM Nail 02/08/25 NE Intake Note: Vero is a 84 year old female who presents today for a post op appointment s/p right hip IM Nail 02/08/25 NE. At the patients last visit she should continue working with physical therapy on glute core and quad strengthening as well as gait training with a walker. Patient reports she is having 7/10 pain and swelling. She does noticed when taking oxycodone she gets constipated. Allergies naproxen [NAPROXEN] Allergy (Intermediate, Verified 03/10/25 14:09) BLISTERS IN MOUTH Sulfa (Sulfonamide Antibiotics) [SULFA (SULFONAMIDE ANTIBIOTICS)] Allergy (Intermediate, Verified 03/10/25 14:09) BLISTERS ON TONGUE HPI HPI PO - right hip IM Nail 02/08/25 NE: Details: Ms. Ramírez is an 84-year-old female who presents to the office today for routine follow-up status post right hip IM nail performed on 02/08/[address] Pardo. She reports that she is at home now she has home physical therapy that is working with her. She is still struggling with standing or walking for long periods of time. She has noticed that the right lower extremity does swell based off of her activity level. She denies any calf pain or cramping. [facility] Medical History Dyspnea on exertion Bronchitis Hyperlipidemia Hypertension Polymyalgia rheumatica Surgical History Hx of cholecystectomy Hx of hysterectomy Family History Mother CHF (congestive heart failure) Social History Household Members: Spouse Housing: House Do you presently have visiting nurse or other home services: No Alcohol intake: current Alcohol intake frequency: holidays/special occasions only Patient Tobacco Use Status: Former Tobacco user Tobacco use type: Cigarette Cigarettes Per Day: 15 Years Smoked: 4 e-Cigarette/Vaping Use: Never Used Second Hand Smoke Exposure: No Substance Use Type: Marijuana Advance Directives Date on File: 11/24/23 service: No Current occupational status: retired Review of Systems Const All systems reviewed & are unremarkable except as noted in HPI and below Physical Exam Const General: cooperative, healthy appearing and no acute distress Resp Effort & Inspection: normal respiratory effort and able to speak in complete sentences Extrem Other: Right hip incision sites are well approximated and healing. No surrounding erythema or drainage. No signs of infection. Pain with internal and external rotation. Able to perform a straight leg raise. Able to dorsiflex and flex. NVI. Assessment & Plan Assessment & Plan (1) Closed intertrochanteric fracture of right femur: Code(s): S72.141A - Displaced intertrochanteric fracture of right femur, initial encounter for closed fracture Category: Medical Plan Ms. Ramírez is an 84-year-old female who presents to the office today for routine follow-up status post right hip IM nail performed on 02/08/[address] Pardo. She reports that she is at home now she has home physical therapy that is working with her. She is still struggling with standing or walking for long periods of time. She has noticed that the right lower extremity does swell based off of her activity level. She denies any calf pain or cramping. While in the office today, the patient was instructed to continue working with physical therapy to work on glute core and quad strengthening as well as ambulation with the use of a walker. Overall the patient is doing very well. X-rays were obtained in the office today and reviewed by me, Sasha Douglas PA-C and reveal intact orthopedic hardware with routine healing. She will follow up in 6 weeks with repeat x-rays, sooner if needed. Orders: Orders XR femur RT 2V Today S72.141A - Displaced intertrochanteric fracture of right femur, initial encounter for closed fracture Coding Level of Care Code Global (08038) Diagnoses Closed intertrochanteric fracture of right femur S72.141A
== END 2025-03-10 14:16 | disposition home or self-care (01) ==
LOC: HO.HOS 13:41
PROVIDERS: Visit Provider Physician Assistant
DX: S72.141A Displaced intertrochanteric fracture of right femur, initial encounter for closed fracture (principal)
CPT/HCPCS: 99024

== ENCOUNTER 2025-03-10 13:41 | Outpatient (REF) | payer MEDICARE, SELFPAY ==
--- NOTE | ~2025-03-10 | XR_ITS ---
CLINICAL HISTORY: S72.141A - Displaced intertrochanteric fracture of right femur, initial ... 2 view right femur Comparison: 02/07/2025 Findings: There is anatomic alignment of the proximal femur fracture following placement of medullary mark and compression screw. IMPRESSION: 1. Anatomic alignment post right femoral open reduction internal fixation This document has been electronically signed by: Andrez Veliz MD on 03/12/2025 10:16:19
== END 2025-03-10 13:42 | disposition home or self-care (01) ==
LOC: HO.HOSX 13:41
PROVIDERS: Visit Provider Physician Assistant
DX: Z09 Encounter for follow-up examination after completed treatment for conditions other than malignant neoplasm (principal); S72.141A Displaced intertrochanteric fracture of right femur, initial encounter for closed fracture; W18.09XA Striking against other object with subsequent fall, initial encounter; Y93.01 Activity, walking, marching and hiking; Y92.009 Unspecified place in unspecified non-institutional (private) residence as the place of occurrence of the external cause; Y99.9 Unspecified external cause status
CPT/HCPCS: 73552; 99212

== ENCOUNTER → 2025-03-10 13:51 | Outpatient (BNV) | payer MEDICARE, SELFPAY | PROVIDERS: Visit Provider Specialist | DX: S72.141A Displaced intertrochanteric fracture of right femur, initial encounter for closed fracture (principal) | CPT/HCPCS: 73552 ==

== ENCOUNTER 2025-03-14 15:12 | Outpatient (AMB) | payer MEDICARE, SELFPAY ==
--- NOTE | 2025-03-14 15:15 | MHC.PC.OV ---
Vital Signs 03/14/25 15:20 Height 5 ft BP 130/72 Respiration 16 Pulse 92 Pulse Source Pulse Oximeter Temp 98.3 F Temp Source Temporal Artery Scan Pulse Oximetry (%) 99 Oxygen Delivery Method Room Air Intake Visit Reasons: Routine Community Ambassador Required: No Accompanied by: Self / Same As Patient Allergies naproxen [NAPROXEN] Allergy (Intermediate, Verified 03/14/25 15:15) BLISTERS IN MOUTH Sulfa (Sulfonamide Antibiotics) [SULFA (SULFONAMIDE ANTIBIOTICS)] Allergy (Intermediate, Verified 03/14/25 15:15) BLISTERS ON TONGUE Medication List - Last Reconciled 03/14/25 by BRIAN Zuniga acetaminophen 1,000 mg PO BID PRN albuterol sulfate 90 mcg/actuation 2 puffs inhalation Q6H PRN cholecalciferol (vitamin D3) (Vitamin D3) 25 mcg PO DAILY dicyclomine 10 mg PO BID fluticasone propionate 50 mcg/actuation (Allergy Relief (fluticasone)) 1 spray intranasal DAILY PRN folic acid 1 mg PO DAILY hydrochlorothiazide 25 mg PO DAILY levothyroxine 25 mcg PO DAILY@0600 magnesium oxide 400 mg PO DAILY meclizine 12.5 mg PO TID PRN metoprolol tartrate 12.5 mg PO BID omeprazole 20 mg PO DAILY@0630 potassium chloride ER 10 mEq PO DAILY prednisone Take 15mg daily until symptomatic improvement, then take 2.5mg daily for maintenance; sertraline 25 mg PO BEDTIME simvastatin 20 mg PO DAILY [TLSO [place] TLSO or other comparable orthotic ] tramadol 25 mg (1/2 x 50 mg) PO BID HPI HPI Comments History of Present Illness Details 84-year-old female with history of hypertension, coronary artery disease, osteoporosis, hyperlipidemia, and polymyalgia rheumatica presents to the office today accompanied by her for management of chronic conditions and to establish care. Coronary artery disease/hyperlipidemia/hypertension-no longer following with Cardiology. No recent anginal chest pain. Continues on metoprolol, statin. Not taking baby aspirin. She is also using hydrochlorothiazide 25 mg daily for management of blood pressure as well. Polymyalgia rheumatica-following with Rheumatology with upcoming appointment May 13. She is not currently on prednisone but is reporting pain in the shoulder and hip girdles. Osteoporosis-last DEXA scan 08/2023. Not on Fosamax. Does take vitamin-D R hip fracture- s/p ORIF 02/08, continues following with ortho. Recent discharge from [facility] ago, now with PT in the home. Using walker and wheelchair. Overall, progressing well. Her main concern today is irritable bowels. For about 2 years, she has had frequent diarrhea with urgency. At times there is significant urgency but is unable to move her bowels. She took this as constipation and had been taking Colace and other laxatives. However, did not have any hard stool. She states for the last few weeks, she has been having constant diarrhea, primarily triggered after eating. As a result, she is also reporting some fecal incontinence. She has needed to purchase a commode to prevent the incontinence. She states that her stool is never fully formed but is either soft or watery. No melena or hematochezia. Denies any abdominal pain, nausea, vomiting, fevers, chills. She has never seen Gastroenterology for these issues. She is also reporting room spinning dizziness at times. No associated nausea or vomiting. This has precipitated falls. No lightheadedness/near syncope, palpitations, shortness of breath, chest pain. ROS: General: No fevers, malaise, unintentional weight loss HEENT: No blurred vision, diplopia. No sore throat, nasal congestion, rhinorrhea, sinus pain, ear pain Cardiovascular: No chest pain, palpitations, or leg edema Respiratory: No shortness of breath, wheezing, cough GI: see hpi : No dysuria, hematuria, increased urinary frequency, decreased urinary output MSK: see hpi Neuro: No headaches, weakness, paresthesias. see hpi Skin: No rashes or lesions EXAM: Constitutional - Awake and Alert, No apparent distress Eyes - PERRLA, EOMI Cardiovascular - S1S2, RRR, No edema Respiratory - Normal lung expansion, Normal respiratory effort, No respiratory distress, CTA bilaterally Gastrointestinal - NT / ND; +BS; No rebound or guarding Extremities - no calf tenderness bilaterally, no swelling Skin - Warm/Dry Neurological - Alert & oriented x3, horizontal nystagmus otherwise CN II-XII in tact Psychological - Appropriate affect REPLACED BY [facility] Medical History (Updated 03/15/25 @ 16:30 by BRIAN Zuniga) IBS (irritable bowel syndrome) Hyperlipidemia Hypertension Dyspnea on exertion Bronchitis Polymyalgia rheumatica Surgical History Hx of cholecystectomy Hx of hysterectomy Family History Mother CHF (congestive heart failure) Social History Household Members: Spouse Housing: House Do you presently have visiting nurse or other home services: No Alcohol intake: current Alcohol intake frequency: holidays/special occasions only Patient Tobacco Use Status: Former Tobacco user Tobacco use type: Cigarette Cigarettes Per Day: 15 Years Smoked: 4 e-Cigarette/Vaping Use: Never Used Second Hand Smoke Exposure: No Substance Use Type: Marijuana Advance Directives Date on File: 11/24/23 service: No Current occupational status: retired Questionnaire PHQ-9 Over the last 2 weeks, how often have you been bothered by any of the following problems? 1. Little interest or pleasure in doing things: several days 2. Feeling down, depressed, or hopeless: more than half the days 3. Trouble falling or staying asleep, or sleeping too much: not at all 4. Feeling tired or having little energy: several days 5. Poor appetite or overeating: more than half the days 6. Feeling bad about yourself - or that you are a failure or have let yourself or your family down: more than half the days 7. Trouble concentrating on things, such as reading the newspaper or watching television: several days 8. Moving or speaking so slowly that other people could have noticed. Or the opposite - being so fidgety or restless that you have been moving around a lot more than usual: not at all 9. Thoughts that you would be better off or of hurting yourself in some way: several days Total score: 10 Source: Developed by Drs. Gary Ruggiero, Lynnette Rocha, Jesus Manuel Hamlin and colleagues, with an educational haroon from [employer]. Thrive Questionnaire Date Thrive assessed: 03/14/25 I am a: Patient What is your living situation today?: I have a steady place to live Within the past 12 months, did the food you bought not last and you didn't have the money to get more?: Never true Within the past 12 months, did you worry whether your food would run out before you got money to buy more?: Never true Do you have trouble paying for medicines?: No Do you have trouble getting transportation to medical appointments?: No Do you have trouble paying your heating and electricity bill?: No Do you have trouble taking care of your child, family member or friend?: No Do you have trouble with day-to-day activities such as bathing, preparing meals, shopping, managing finances, etc.?: No Are you currently unemployed and looking for a job?: No Are you interested in more education?: No Please select the resources that you would like help with: None THRIVE Score: 0 COLBY-7 AMB Questionnaire COLBY-7 Date COLBY - 7 assessed: 03/14/25 Feeling nervous, anxious, or on edge: 2 = More than half the days Not being able to stop or control worryin = More than half the days Worrying too much about different things: 1 = Several days Trouble relaxin = Not at all Being so restless that it is hard to sit still: 0 = Not at all Becoming easily annoyed or irritable: 2 = More than half the days Feeling afraid as if something awful might happen: 2 = More than half the days Total COLBY-7 score (0-4 normal; 5-9 mild; 10-14 moderate; 15-21 severe): 9 Source: Developed by Drs. Gary Ruggiero, Lynnette Rocha, Jesus Manuel Hamlin and colleagues, with an educational haroon from [employer]. Physical exam (Primary Care) Vital Signs: Last Vital Signs Temp 98.3 F 03/14/25 15:20 Pulse 92 03/14/25 15:20 Resp 16 03/14/25 15:20 BP 130/72 03/14/25 15:20 Pulse Ox 99 03/14/25 15:20 Oxygen Delivery Method Room Air 03/14/25 15:20 Tobacco/Smoking Status: Tobacco use Status Patient Tobacco Use Status Former Tobacco user 03/14/25 15:17 Tobacco use type Cigarette 03/14/25 15:17 e-Cigarette/Vaping Use Never Used 03/14/25 15:17 PHQ-9: PHQ-9 Score PHQ-9: Total score 10 03/15/25 13:44 Thrive Assessment: Date of Thrive Assessment Date Thrive assessed 03/14/25 03/14/25 16:33 Coding Level of Care Code New Pt Level 4 (46667) Complex EM visit Add On G2211 Diagnoses Polymyalgia rheumatica M35.3 IBS (irritable bowel syndrome) K58.9 Fecal incontinence R15.9 Hypertension I10 Hyperlipidemia E78.5 Vertigo R42 Hypothyroidism E03.9 Assessment & Plan Assessment & Plan (1) Polymyalgia rheumatica: Comment: some small joint synovitis as well RF/CCP/MARK negative; HCQ started 10/23; eye exam OK 11/24, 09/27, 05/29, 05/30 MTX added 03/27 thru 10/29, remained on hydroxychloroquine Patient stopped hydroxychloroquine due to headaches, ? Blurry vision Code(s): M35.3 - Polymyalgia rheumatica Category: Medical Plan: Uncontrolled. Initiate prednisone 30mg daily until relief achieved, then take 2.5mg daily. Follow up with rheumatology as scheduled. (2) IBS (irritable bowel syndrome): Code(s): K58.9 - Irritable bowel syndrome, unspecified Category: Medical Plan: Uncontrolled. Failed elimination trials. Discontinue laxatives/stool softeners given absence of constipation which will exacerbate diarrheal symptoms. Trial dicyclomine. Referral placed to gastroenterology given duration of symptoms and lack of response to elimination trials (3) Fecal incontinence: Code(s): R15.9 - Full incontinence of feces Category: Medical Plan: As above. (4) Hypertension: Code(s): I10 - Essential (primary) hypertension Category: Medical Plan: Controlled with blood pressure 130/72. Continue metoprolol 12.5 mg twice daily, hydrochlorothiazide 25 mg daily. Low-sodium diet advised. We will review renal function and electrolyte levels. (5) Hyperlipidemia: Code(s): E78.5 - Hyperlipidemia, unspecified Category: Medical Plan: Lipid panel ordered. Continue simvastatin 20 mg daily. Follow diet low in saturated fats and highly processed foods. (6) Vertigo: Code(s): R42 - Dizziness and giddiness Category: Medical Plan: , likely BPPV. Trial meclizine 12.5 mg as needed for dizziness. (7) Hypothyroidism: Code(s): E03.9 - Hypothyroidism, unspecified Plan: TSH with reflex free T4 ordered. Continue levothyroxine, dose to be adjusted as needed pending results of studies. Plan Labs be completed following visit today. Referral to gastroenterology placed. Follow up in 3 months Orders: Orders Complete Blood Count Auto Diff 03/14/25 E78.5 - Hyperlipidemia, unspecified, I10 - Essential (primary) hypertension, M81.0 - Age-related osteoporosis without current pathological fracture TSH reflex Free T4 03/14/25 E78.5 - Hyperlipidemia, unspecified, I10 - Essential (primary) hypertension, M81.0 - Age-related osteoporosis without current pathological fracture Basic Metabolic Panel 03/14/25 E78.5 - Hyperlipidemia, unspecified, I10 - Essential (primary) hypertension, M81.0 - Age-related osteoporosis without current pathological fracture Lipid Panel 03/14/25 E78.5 - Hyperlipidemia, unspecified, I10 - Essential (primary) hypertension, M81.0 - Age-related osteoporosis without current pathological fracture Referrals Gastroenterology Referral K58.9 - Irritable bowel syndrome, unspecified, R15.9 - Full incontinence of feces Medications: New meclizine 12.5 mg PO TID PRN 30 tabs 0RF dizziness dicyclomine 10 mg PO BID 180 caps 0RF prednisone Take 15mg daily until symptomatic improvement, then take 2.5mg daily for maintenance; 90 tabs 0RF M35.3 - Polymyalgia rheumatica
[2025-03-14 15:20] VITALS: BP 130/72; PULSE 92; RESP 16; TEMP 36.8; O2SAT 99
--- OUTSIDE RECORDS SUMMARY | 2025-03-14 16:26 | XMS_ITS | Encounter Summary ---
Author Organization [facility] Address [address] [place] [address] Care Team Providers Care Tree Shear Operator Name Role Phone Name, Rafael TAVERA Primary Care Provider Christal Piedra MD Primary Care Provider Africa Ibrahim MD Primary Care Provider Un available Jose Lopez MD Primary Care Provider Unavail Javier Patel MD Primary Care Provider [phone] Reason for Visit * Reason Onset Date Comments Wrist Pain 05/12/2014 fell, hurt right wrist Encounter Details Date Type Department Care Team Description 05/12/2014 Telephone Adult [address] [id number] Name, MD Rafael Wrist Pain (fell, hurt [...] fell on Friday05/09/14 PCP: Rafael Name Payor: [facility] FFS / Plan: [facility] MEDICARE PLUS $15 [place] / Product Type: MEDICARE [id number] documented in this encounter Plan of Treatment Not on file documented as of this encounter Visit Diagnoses Not on filedocumented in this encounter Care Teams Tree Shear Operator Relationship Specialty Start Date End Date Name, MD Rafael PCP - General 12/13/09 11/14/15 Christal Celestin MD PCP - General Internal Medicine 11/15/15 11/30/18 Africa Blankenship MD PCP - General Internal Medicine 12/01/18 9 Jose Lopez MD PCP - General Internal Medicine 01/19/19 04/11/20 Javier Eller MD [address] [place] [id number] PCP - General Internal Medicine 04/12/20 documented as of this encounter
== END 2025-03-14 15:52 | disposition home or self-care (01) ==
LOC: HO.HMCHD 15:13
PROVIDERS: Visit Provider Physician Assistant
DX: M35.3 Polymyalgia rheumatica (principal); K58.9 Irritable bowel syndrome, unspecified; R15.9 Full incontinence of feces; I10 Essential (primary) hypertension; E78.5 Hyperlipidemia, unspecified; R42 Dizziness and giddiness; E03.9 Hypothyroidism, unspecified

== ENCOUNTER 2025-03-14 15:12 | Outpatient (REF) | payer MEDICARE, SELFPAY ==
[2025-03-14 16:12] LABS: MANUAL DIFF FLAG NO
[2025-03-14 17:06] LABS: Basophils Percent Auto 0.3 % (0-2); Eosinophils Percent Auto 0.4 % (0-4); Hematocrit 36.6 % (37.0-47.0); Hemoglobin 11.9 g/dl (12.0-16.0); Imm Gran Abs Auto 0.03 X10*3/uL (0.00-0.03); Imm Gran Pct Auto 0.3 % (0.0-0.4); Lymphocytes Absolute Auto 2.1 X10*3/uL (1.2-4.9); Lymphocytes Percent Auto 21.9 % (20-40); Mean Corpuscular HGB Conc 32.5 g/dl (31.0-35.0); Mean Corpuscular Hemoglobin 30.7 pg (27.0-33.0); Mean Corpuscular Volume 94.6 fL (80.0-98.0); Mean Platelet Volume 10.3 fL (9.4-12.3); Monocytes Absolute Auto 0.8 X10*3/uL (0.1-1.2); Monocytes Percent Auto 8.4 % (2-11); Neutrophils Absolute Auto 6.5 x10*3/uL (2.0-8.3); Neutrophils Percent Auto 68.7 % (45-73); Platelet Count 340 X10*3/uL (160-400); Red Blood Count 3.87 X10*6/uL (4.20-5.50); Red Cell Distribution Width 13.4 % (11.0-16.0); White Blood Count 9.4 X10*3/uL (4.8-10.8)
[2025-03-14 17:39] LABS: Anion Gap 13 (12-20); Blood Urea Nitrogen 11 mg/dL (9-16); Calcium 9.8 mg/dL (8.4-10.2); Carbon Dioxide 25 mmol/L (22-29); Chloride 105 mmol/L (96-108); Cholesterol 148 mg/dL (<200); Estimated Glomerular Filt Rate > 60; Glucose Random 89 mg/dL (60-115); HDL Cholesterol 44 mg/dL (>40); LDL Cholesterol Calculated 78 mg/dL (<100); Potassium 3.2 mmol/L (3.3-5.1); Sodium 140 mmol/L (135-145); Triglycerides 130 mg/dL (<150)
[2025-03-14 17:55] LABS: TSH reflex Free T4 2.59 uIU/mL (0.32-4.0)
== END 2025-03-14 15:13 | disposition home or self-care (01) ==
LOC: HO.LAB 15:12
PROVIDERS: PCP Physician Assistant; Visit Provider Physician Assistant
DX: M35.3 Polymyalgia rheumatica (principal); K58.9 Irritable bowel syndrome, unspecified; R15.9 Full incontinence of feces; I10 Essential (primary) hypertension; E78.5 Hyperlipidemia, unspecified; R42 Dizziness and giddiness; E03.9 Hypothyroidism, unspecified; M81.0 Age-related osteoporosis without current pathological fracture; Z79.899 Other long term (current) drug therapy
CPT/HCPCS: 36415; 80048; 80061; 84443; 85025; 96127; 99202

== ENCOUNTER → 2025-03-17 23:59 | Outpatient (BNV) | payer MEDICARE, SELFPAY | PROVIDERS: PCP Internal Medicine; Visit Provider Internal Medicine | DX: S72.141D Displaced intertrochanteric fracture of right femur, subsequent encounter for closed fracture with routine healing (principal); I10 Essential (primary) hypertension; J44.9 Chronic obstructive pulmonary disease, unspecified | CPT/HCPCS: G0180 ==

== ENCOUNTER 2025-04-22 06:56 | Outpatient (REF) | payer MEDICARE, SELFPAY ==
--- OUTSIDE RECORDS SUMMARY | 2025-04-25 06:58 | XMS_ITS | Patient Health Record ---
Author [facility] Address [address] [place] [address] Care Team Providers Care Commanding Officer Traffic Division Name Role Phone Ismael Davis MD Primary Care Provider Kaiser Cerna Unavailable [phone] Allergies Allergen (clinical drug ingredient) Drug/Non Drug [...] 1 capsule with food Orally Once a day; Duration: 30 day(s) Active prednisoLONE 5 MG 1 tablet in the morning with food or milk Orally Once a day; Duration: 30 days 10 mg daily Active Omeprazole 20 MG 1 capsule 30 minutes before morning meal Orally Once a day; Duration: 30 day(s) Active Levothyroxine Sodium Active hydroCHLOROthiazide 25 MG 1 tablet in morning Orally Once a day; Duration: 30 day(s) Active Alendronate Sodium 70 MG 1 tablet 30 min utes before the first food, beverage or medicine of the day with plain water Orally; Duration: 30 day(s) Active Triamcinolone Acetonide 0.1 % 1 application Externally Twice a day Active Sertraline HCl 50 MG 1 tablet Orally Once a day; Duration: 30 day(s) Active Simvastatin 20 MG 1 tablet in the evening Orally Once a day; Duration: 30 day(s) Active Fluticasone Propionate Active Fexofenadine HCl 180 MG 1 tablet Orally Once a day; Duration: 30 day(s) Active Immunizations Vaccine Route Administration Date Status Comme [facility] COVUT-19 Moderna Vaccine Unknown 08/23/2021 Administered 1st 11/26/20 [...] Status Risk Notes Problem Acquired hallux valgus (86847467) Hallux valgus (acquired), left foot (M20.12) Active confirmed Problem Acquired hallux valgus (79590969) Hallux valgus (acquired), right foot (M20.11) Active confirmed Problem Plantar fascial fibromatosis (72856561) 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 Problem Acquired hammer toe of right foot ([id number] 5) Other hammer toe(s) (acquired), right foot (M20.41) Active confirmed Problem Acquired hammer toe of left foot ([id number] 3) Other hammer toe(s) (acquired), left foot (M20.42) Active confirmed Vital Signs Blood pressure diastolic 70 mm Hg 05/03/2024 Height 4ft 11in in 05/03/2024 Blood pressure systolic 138 mm Hg 05/03/2024 Weight 160 lbs 05/03/2024 BMI 32.31 kg/m2 05/03/2024 Encounters Encounter Location Date Provider Diagnosis [facility] [address] [place] [address] 05/03/2024 Kaiser Riddle Tinea unguium B35.1 ; [...] nail L60.0 and Plantar fascial fibromatosis M72.2 [facility] [address] [place] [address] 08/03/2024 Kaiser Riddle Assessments Encounter Date Diagnosis [...] Medicare Advantage [address] [place] [address] [id number] Vero Ramírez Self - patient is the insured Medical (General) History Medical History History ICD Code Arthritis Back,Hip,and Knee pain Depression Headaches/Migraines Kidney disease Measles Mumps Chicken pox Surgical History Surgery Date(Month/Year) hysterectomy gall bladder Hospitalization History Reason Date(Month/Year) [facility]- Bee sting 04/23/24 [facility]- Rheumatoid arthritis 11/2023
--- OUTSIDE RECORDS SUMMARY | 2025-04-25 06:58 | XMS_ITS | Encounter Summary ---
Author Organization [facility] Address [address] [place] [address] Care Team Providers Care Motor Vehicle License Clerk Name Role Phone Name, Rafael TAVERA Primary Care Provider Christal Piedra MD Primary Care Provider Africa Ibrahim MD Primary Care Provider Un available Jose Lopez MD Primary Care Provider Unavail Javier Patel MD Primary Care Provider Reason for Visit * Reason Onset Date Comments Wrist Pain 05/12/2014 fell, hurt right wrist Encounter Details Date Type Department Care Team Description 05/12/2014 Telephone Adult [address] [phone] Name, MD Rafael Wrist Pain (fell, hurt [...] fell on Friday05/09/14 PCP: Rafael Name Payor: [facility]FS / Plan: [facility] MEDICARE PLUS $15 [place] / Product Type: MEDICARE [id number] documented in this encounter Plan of Treatment Not on file documented as of this encounter Visit Diagnoses Not on filedocumented in this encounter Care Teams Motor Vehicle License Clerk Relationship Specialty Start Date End Date Name, MD Rafael PCP - General 12/13/09 11/14/15 Christal Celestin MD PCP - General Internal Medicine 11/15/15 11/30/18 Africa Blankenship MD PCP - General Internal Medicine 12/01/18 9 Jose Lopez MD PCP - General Internal Medicine 01/19/19 04/11/20 Javier Eller MD [address] [place] [id number] PCP - General Internal Medicine 04/12/20 documented as of this encounter
--- OUTSIDE RECORDS SUMMARY | 2025-04-25 06:58 | XMS_ITS | Encounter Summary ---
Author Organization [facility] Address [address] [place] [id number] Care Team Providers Care Revenue Enforcement Collection Agent Name Role Phone Jeronimo Norris MD Primary Care Provider [phone] Encounter Details Date Type Department Care Team (Late st Contact Info) Description 02/13/2025 Lab Requisition [facility] - Main Lab [address] [facility] [place] [address] Jeronimo Norris MD [address] [place] [address] Essential (primary) hypertension; Gastro-esophageal reflux [...] mmol/L LAB CHEMISTRY METHOD 02/14/2025 9:15 AM [facility] Potassium 4.8 3.5 - 5.5 mmol/L LAB CHEMISTRY METHOD 02/14/2025 9:15 AM [facility] Chloride 107 96 - 110 mmol/L LAB CHEMISTRY METHOD 02/14/2025 9:15 AM [facility] CO2 25 21 - 32 mmol/L LAB CHEMISTRY METHOD 02/14/2025 9:15 AM [facility] Anion Gap 9 3 - 11 LAB CHEMISTRY METHOD 02/14/2025 9:15 AM [facility] Glucose 92 70 - 100 mg/dL LAB CHEMISTRY METHOD 02/14/2025 9:15 AM [facility] BUN 25 5 - 25 mg/dL LAB CHEMISTRY METHOD 02/14/2025 9:15 AM [facility] Creatinine 0.60 0.50 - 1.10 mg/dL LAB CHEMISTRY METHOD 02/14/2025 9:15 AM [facility] eGFR 90 >=60 mL/min/1. 73m2 LAB CHEMISTRY METHOD 02/14/2025 9:15 AM [facility] Comment:Calculation based on the Chronic Kidney Disease Epidemiology Collaboration (CKD-EPI) equation refit without adjustment for race. BUN/Creatinine Ratio 41.7 LAB CHEMISTRY METHOD 02/14/2025 9:15 AM [facility] Calcium 8.8 8.5 - 10.5 mg/dL LAB CHEMISTRY METHOD 02/14/2025 9:15 AM [facility] AST (SGOT) 46(H) 10 - 42 unit/L LAB CHEMISTRY METHOD 02/14/2025 9:15 AM [facility] ALT (SGPT) 23 10 - 60 unit/L LAB CHEMISTRY METHOD 02/14/2025 9:15 AM [facility] Alkaline Phosphatase 70 42 - 121 unit/L LAB CHEMISTRY METHOD 02/14/2025 9:15 AM EDT [facility] Total Protein 5.5(L) 6.0 - 8.0 g/dL LAB CHEMISTRY METHOD 02/14/2025 9:15 AM [facility] Albumin 2.5(L) 3.2 - 5.0 g/dL LAB CHEMISTRY METHOD 02/14/2025 9:15 AM [facility] Total Bilirubin 0.5 0.0 - 1.4 mg/dL LAB CHEMISTRY METHOD 02/14/2025 9:15 AM [facility] Blood Venous blood specimen / Unknown Venipuncture / Unknown 02/14/2025 6:22 AM EDT 02/14/2025 8:24 AM EDT Jeronimo Norris MD LAB BLOOD ORDERABLES Final Resu lt [facility] [address] [place] [address], * (ABNORMAL) Complete blood count (02/14/2025 6:22 AM EDT) WBC 14.2(H) 4.8 - 10.8 K/[facility] LAB HEMETOLOGY METHOD 02/14/2025 8:46 AM [facility] RBC 3.30(L) 3.80 - 4.80 M/[facility] LAB HEMETOLOGY METHOD 02/14/2025 8:46 AM [facility] Hemoglobin 10.0(L) 11.5 - 16.0 g/dL LAB HEMETOLOGY METHOD 02/14/2025 8:46 AM [facility] Hematocrit 31.6(L) 35.0 - 47.0 % LAB HEMETOLOGY METHOD 02/14/2025 8:46 AM [facility] MCV 96.0 79.0 - 98.0 FL LAB HEMETOLOGY METHOD 02/14/2025 8:46 AM EDT [facility] MCH 30.4 27.0 - 32.0 pcg LAB HEMETOLOGY METHOD 02/14/2025 8:46 AM EDT [facility] MCHC 31.6(L) 32.0 - 37.0 g/dL LAB HEMETOLOGY METHOD 02/14/2025 8:46 AM EDT [facility] RDW 13.1 11.0 - 15.0 % LAB HEMETOLOGY METHOD 02/14/2025 8:46 AM EDT [facility] Platelets 321 130 - 400 K/mcL LAB HEMETOLOGY METHOD 02/14/2025 8:46 AM EDT [facility] MPV 10.6 7.0 - 11.0 FL LAB HEMETOLOGY METHOD 02/14/2025 8:46 AM EDT [facility] NRBC 0.0 <1.0 % LAB HEMETOLOGY METHOD 02/14/2025 8:46 AM T [facility] NRBC Absolute 0.00 <0.10 K/mcL LAB HEMETOLOGY METHOD 02/14/2025 8:46 AM T [facility] Blood Venous blood specimen / Unknown Venipuncture / Unknown 02/14/2025 6:22 AM EDT 02/14/2025 8:34 AM EDT us Jeronimo Norris MD LAB BLOOD ORDERABLES Final Resu lt [facility] [address] [place] [address], documented in this encounter Visit Diagnoses Diagnosis Essential (primary) hypertension Unspecified essential hypertension Gastro-esophageal reflux disease without esophagitis documented in this encounter Care Teams Revenue Enforcement Collection Agent Relationship Specialty Start Date End Date Jeronimo Norris MD [address] [place] [address] PCP - General Internal Medicine 02/10/25 documented as of this encounter
== END 2025-04-22 06:57 | disposition home or self-care (01) ==
LOC: HO.HOSX 06:56
PROVIDERS: Visit Provider Physician Assistant
DX: Z13.89 Encounter for screening for other disorder (principal)

== ENCOUNTER 2025-04-29 09:03 | Outpatient (REF) | payer MEDICARE, SELFPAY ==
--- NOTE | ~2025-04-29 | XR_ITS ---
EXAMINATION: XR FEMUR, RIGHT CLINICAL INFORMATION: S72.141A - Displaced intertrochanteric fracture of right femur, initial ... COMPARISON: March 10, 2025 TECHNIQUE: AP and lateral views of the right femur were obtained. FINDINGS: Again seen is a right intertrochanteric fracture with fragmentation the lesser trochanter status post placement of intramedullary nail with a lag screw. Hardware positioning is unchanged. Left trochanter remains mildly displacing the proximal medial direction. There is increased density across the fracture line consistent with new bone formation. Distal locking screw of the intramedullary nail sits proud of the femoral cortex 4 mm, unchanged. There is periosteal new bone formation at the site of insertion of the screw into the cortex, new since the prior. 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 XR/XR femur RT 2V IMPRESSION: Healing intertrochanteric fracture of the right femur status post ORIF. Electronically signed by: Jomar Us MD 04/29/2025 11:24 AM EDT
--- OUTSIDE RECORDS SUMMARY | 2025-05-02 09:22 | XMS_ITS | Encounter Summary ---
Author Organization [facility] Address [address] [place] [phone] Care Team Providers Care Client Experience Specialist Name Role Phone Jeronimo Norris MD Primary Care Provider [phone] Encounter Details Date Type Department Care Team (Late st Contact Info) Description 02/13/2025 Lab Requisition [facility] - Main Lab [address] [facility] [place] [address] Jeronimo Norris MD [address] [place] [address] Essential (primary) hypertension; Gastro-esophageal reflux [...] mmol/L LAB CHEMISTRY METHOD 02/14/2025 9:15 AM [facility] Potassium 4.8 3.5 - 5.5 mmol/L LAB CHEMISTRY METHOD 02/14/2025 9:15 AM [facility] Chloride 107 96 - 110 mmol/L LAB CHEMISTRY METHOD 02/14/2025 9:15 AM [facility] CO2 25 21 - 32 mmol/L LAB CHEMISTRY METHOD 02/14/2025 9:15 AM [facility] Anion Gap 9 3 - 11 LAB CHEMISTRY METHOD 02/14/2025 9:15 AM [facility] Glucose 92 70 - 100 mg/dL LAB CHEMISTRY METHOD 02/14/2025 9:15 AM [facility] BUN 25 5 - 25 mg/dL LAB CHEMISTRY METHOD 02/14/2025 9:15 AM [facility] Creatinine 0.60 0.50 - 1.10 mg/dL LAB CHEMISTRY METHOD 02/14/2025 9:15 AM [facility] eGFR 90 >=60 mL/min/1. 73m2 LAB CHEMISTRY METHOD 02/14/2025 9:15 AM [facility] Comment:Calculation based on the Chronic Kidney Disease Epidemiology Collaboration (CKD-EPI) equation refit without adjustment for race. BUN/Creatinine Ratio 41.7 LAB CHEMISTRY METHOD 02/14/2025 9:15 AM [facility] Calcium 8.8 8.5 - 10.5 mg/dL LAB CHEMISTRY METHOD 02/14/2025 9:15 AM [facility] AST (SGOT) 46(H) 10 - 42 unit/L LAB CHEMISTRY METHOD 02/14/2025 9:15 AM [facility] ALT (SGPT) 23 10 - 60 unit/L LAB CHEMISTRY METHOD 02/14/2025 9:15 AM [facility] Alkaline Phosphatase 70 42 - 121 unit/L LAB CHEMISTRY METHOD 02/14/2025 9:15 AM EDT [facility] Total Protein 5.5(L) 6.0 - 8.0 g/dL LAB CHEMISTRY METHOD 02/14/2025 9:15 AM [facility] Albumin 2.5(L) 3.2 - 5.0 g/dL LAB CHEMISTRY METHOD 02/14/2025 9:15 AM [facility] Total Bilirubin 0.5 0.0 - 1.4 mg/dL LAB CHEMISTRY METHOD 02/14/2025 9:15 AM [facility] Blood Venous blood specimen / Unknown Venipuncture / Unknown 02/14/2025 6:22 AM EDT 02/14/2025 8:24 AM EDT Jeronimo Norris MD LAB BLOOD ORDERABLES Final Resu lt [facility] [address] [place] [address], * (ABNORMAL) Complete blood count (02/14/2025 6:22 AM EDT) WBC 14.2(H) 4.8 - 10.8 K/[facility] LAB HEMETOLOGY METHOD 02/14/2025 8:46 AM [facility] RBC 3.30(L) 3.80 - 4.80 M/[facility] LAB HEMETOLOGY METHOD 02/14/2025 8:46 AM [facility] Hemoglobin 10.0(L) 11.5 - 16.0 g/dL LAB HEMETOLOGY METHOD 02/14/2025 8:46 AM [facility] Hematocrit 31.6(L) 35.0 - 47.0 % LAB HEMETOLOGY METHOD 02/14/2025 8:46 AM [facility] MCV 96.0 79.0 - 98.0 FL LAB HEMETOLOGY METHOD 02/14/2025 8:46 AM EDT [facility] MCH 30.4 27.0 - 32.0 pcg LAB HEMETOLOGY METHOD 02/14/2025 8:46 AM EDT [facility] MCHC 31.6(L) 32.0 - 37.0 g/dL LAB HEMETOLOGY METHOD 02/14/2025 8:46 AM EDT [facility] RDW 13.1 11.0 - 15.0 % LAB HEMETOLOGY METHOD 02/14/2025 8:46 AM EDT [facility] Platelets 321 130 - 400 K/mcL LAB HEMETOLOGY METHOD 02/14/2025 8:46 AM EDT [facility] MPV 10.6 7.0 - 11.0 FL LAB HEMETOLOGY METHOD 02/14/2025 8:46 AM EDT [facility] NRBC 0.0 <1.0 % LAB HEMETOLOGY METHOD 02/14/2025 8:46 AM T [facility] NRBC Absolute 0.00 <0.10 K/mcL LAB HEMETOLOGY METHOD 02/14/2025 8:46 AM T [facility] Blood Venous blood specimen / Unknown Venipuncture / Unknown 02/14/2025 6:22 AM EDT 02/14/2025 8:34 AM EDT us Jeronimo Norris MD LAB BLOOD ORDERABLES Final Resu lt [facility] [address] [place] [address], documented in this encounter Visit Diagnoses Diagnosis Essential (primary) hypertension Unspecified essential hypertension Gastro-esophageal reflux disease without esophagitis documented in this encounter Care Teams Client Experience Specialist Relationship Specialty Start Date End Date Jeronimo Norris MD [address] [place] [address] PCP - General Internal Medicine 02/10/25 documented as of this encounter
--- OUTSIDE RECORDS SUMMARY | 2025-05-02 09:22 | XMS_ITS | Clinical Summary ---
Author Organization [facility] Address [address] [place] [address] Phone Care Team Providers Care Welder/Fabricator Name Role Phone Unavailable Primary Care Provider [...] It is not the complete legal health record.[facility]
--- OUTSIDE RECORDS SUMMARY | 2025-05-02 09:23 | XMS_ITS | Patient Health Record ---
[facility] Address [address] [place] [address] Care Team Providers Care Manager Income Tax Name Role Phone Ismael Davis MD Primary Care Provider [facility] Unavailable [phone] Allergies Allergen (clinical drug ingredient) Drug/Non Drug [...] Status Risk Notes Problem Acquired hallux valgus (54477621) Hallux valgus (acquired), left foot (M20.12) Active confirmed Problem Acquired hallux valgus (34293197) Hallux valgus (acquired), right foot (M20.11) Active confirmed Problem Plantar fascial fibromatosis (92203700) 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 Problem Acquired hammer toe of right foot ([id number] 5) Other hammer toe(s) (acquired), right foot (M20.41) Active confirmed Problem Acquired hammer toe of left foot (841463964147685 3) Other hammer toe(s) (acquired), left foot (M20.42) Active confirmed Vital Signs Blood pressure diastolic 70 mm Hg 05/03/2024 Height 4ft 11in in 05/03/2024 Blood pressure systolic 138 mm Hg 05/03/2024 Weight 160 lbs 05/03/2024 BMI 32.31 kg/m2 05/03/2024 Encounters Encounter Location Date Provider Diagnosis [facility] [address] [place] [address] 05/03/2024 [facility] Tinea unguium B35.1 ; [...] nail L60.0 and Plantar fascial fibromatosis M72.2 [facility] [address] [place] [address] 08/03/2024 [facility] Assessments Encounter Date Diagnosis [...] Medicare Advantage [address] [facility] [place] [address] [id number] Vero Ramírez Self - patient is the insured Medical (General) History Medical History History ICD Code Arthritis Back,Hip,and Knee pain Depression Headaches/Migraines Kidney disease Measles Mumps Chicken pox Surgical History Surgery Date(Month/Year) hysterectomy gall bladder Hospitalization History Reason Date(Month/Year) [facility]- Bee sting 04/23/24 [facility]- Rheumatoid arthritis 11/2023
== END 2025-04-29 09:04 | disposition home or self-care (01) ==
LOC: HO.HOSX 09:03
PROVIDERS: Visit Provider Physician Assistant
DX: S72.141A Displaced intertrochanteric fracture of right femur, initial encounter for closed fracture (principal); X58.XXXA Exposure to other specified factors, initial encounter
CPT/HCPCS: 73552; 99212

== ENCOUNTER 2025-04-29 10:36 | Outpatient (AMB) | payer MEDICARE, SELFPAY ==
--- OUTSIDE RECORDS SUMMARY | 2024-08-05 06:45 | XMS_ITS ---
Author Organization [facility] Address [address] [place] [address] Care Team Providers Care Manufacturer Name Role Phone Ismael Davis MD Primary Care Provider Kaiser Cerna [phone] REASON FOR VISIT Last PCP Visit: 04/26/24, Ingrown nail(s) Medications Medication SIG (Take, Route, Frequency, Duration) Notes Start Date End Date Status Voltaren 1 % as directed Externally Active Night Splint AFO - L1930 as directed Active Problems Problem Type SNOMED Code ICD Code Onset Dates Problem Status W/U Status Risk Notes Problem Plantar fascial fibromatosis (32648314) 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 Encounters Encounter Location Date Provider Diagnosis [facility] [address] [place] [address] 08/05/2024 Kaiser Riddle Tinea unguium B35.1 ; Pain in right [...] T1 Progress Notes * Vero CONNELLYDOB: [birth year] (84 yo F)Acc No.[id number]:08/05/2024 Progress Note Patient: Vero YOUGNBLOOD Provider: Yudelka Riddle DPM :1940 A ge:83 Y S ex:Female Date:08/05/2024 Address: [address], [facility], [facility] Pcp:Ismael Davis MD Subjective: * Chief Complaints: [...] enies. C ardiovascular: Pacemaker d enies. M CELEBRITY CHEF ENTREPRENEUR MEDIA PERSONALITY d enies. W PW d enies. C [...] Yudelka Riddle DPM Date: Generated for Astrid mello/Jason/Rhett on: 0 04/29/2025 11:07 AM EDT History and Physical Notes * HPI (History [...]
--- NOTE | 2025-04-29 10:41 | MHC.OFFVIS ---
Intake Visit Reasons: OV - right hip IM Nail 02/08/25 NE Intake Note: Vero is a 84 year old female who presents today for a post op appointment s/p right hip IM Nail 02/08/25 NE. At the patients last visit she is able to continue with physical therapy to work on glute core and quad strengthening as well as ambulation with the use of a walker. She mentions she is doing better today. Patient has been doing her own exercises at home and she is seeing improvements. Allergies naproxen (NAPROXEN) Allergy (Intermediate, Verified 04/29/25 10:52) BLISTERS IN MOUTH Sulfa (Sulfonamide Antibiotics) (SULFA (SULFONAMIDE ANTIBIOTICS)) Allergy (Intermediate, Verified 04/29/25 10:52) BLISTERS ON TONGUE HPI HPI OV - right hip IM Nail 02/08/25 NE: Details: Ms. Ramírez is an 84-year-old female who presents to the office today for routine follow-up status post right hip IM nail performed on 02/08/[address] Pardo. Patient states that overall she is doing very well. She did not participate in many physical therapy sessions after surgery. The [facility] came to 1 appointment and gave her some home exercises to perform. She is using a Rollator walker to assist with ambulation. She has occasional soreness but she continues to resume her normal activities. [facility] Medical History (Updated 03/15/25 @ 16:30 by BRIAN Zuniga) IBS (irritable bowel syndrome) Hyperlipidemia Hypertension Dyspnea on exertion Bronchitis Polymyalgia rheumatica Surgical History Hx of cholecystectomy Hx of hysterectomy Family History Mother CHF (congestive heart failure) Social History Household Members: Spouse Housing: House Do you presently have visiting nurse or other home services: No Alcohol intake: current Alcohol intake frequency: holidays/special occasions only Patient Tobacco Use Status: Former Tobacco user Tobacco use type: Cigarette Cigarettes Per Day: 15 Years Smoked: 4 e-Cigarette/Vaping Use: Never Used Second Hand Smoke Exposure: No Substance Use Type: Marijuana Advance Directives Date on File: 11/24/23 service: No Current occupational status: retired Review of Systems Const All systems reviewed & are unremarkable except as noted in HPI and below Physical Exam Const General: cooperative, healthy appearing and no acute distress Resp Effort & Inspection: normal respiratory effort and able to speak in complete sentences Extrem Other: Right hip able to perform a straight leg raise. Good internal external rotation with no pain. Slight tenderness to palpation over the distal screw. NVI. Assessment & Plan Assessment & Plan (1) Closed intertrochanteric fracture of right femur: Code(s): S72.141A - Displaced intertrochanteric fracture of right femur, initial encounter for closed fracture Category: Medical Plan Ms. Ramírez is an 84-year-old female who presents to the office today for routine follow-up status post right hip IM nail performed on 02/08/[address] Pardo. Patient states that overall she is doing very well. She did not participate in many physical therapy sessions after surgery. The [facility]NA came to 1 appointment and gave her some home exercises to perform. She is using a Rollator walker to assist with ambulation. She has occasional soreness but she continues to resume her normal activities. While the office today, the patient is doing very well overall. I have encouraged the patient to continue her physical therapy exercises to help with strengthening. Continuation of the Rollator walker for safe ambulation. She will follow up in 8 weeks with repeat x-rays, sooner if needed. X-rays of the right femur which were obtained while in the office today and were reviewed by me, Sasha Douglas PA-C, revealed intramedullary nail. The most distal screw is backing out slightly. Routine healing of the intertrochanteric hip fracture. Orders: Orders XR femur RT 2V Today S72.141A - Displaced intertrochanteric fracture of right femur, initial encounter for closed fracture Coding Level of Care Code Global (43732) Diagnoses Closed intertrochanteric fracture of right femur S72.141A
--- OUTSIDE RECORDS SUMMARY | 2025-04-29 11:07 | XMS_ITS | Encounter Summary ---
Author Organization [facility] Address [address] [place] [address] Care Team Providers Care Prop Cutter Name Role Phone Jeronimo Norris MD Primary Care Provider [phone] Encounter Details Date Type Department Care Team (Late st Contact Info) Description 02/16/2025 Lab Requisition [facility] - Main Lab [address] [facility] [place] [address] Jeronimo Norris MD [address] [place] [address] Essential (primary) hypertension; Gastro-esophageal reflux [...] mmol/L LAB CHEMISTRY METHOD 02/17/2025 10:00 AM [facility] Potassium 4.1 3.5 - 5.5 mmol/L LAB CHEMISTRY METHOD 02/17/2025 10:00 AM [facility] Chloride 104 96 - 110 mmol/L LAB CHEMISTRY METHOD 02/17/2025 10:00 AM [facility] CO2 29 21 - 32 mmol/L LAB CHEMISTRY METHOD 02/17/2025 10:00 AM [facility] Anion Gap 6 3 - 11 LAB CHEMISTRY METHOD 02/17/2025 10:00 AM [facility] Glucose 79 70 - 100 mg/dL LAB CHEMISTRY METHOD 02/17/2025 10:00 AM [facility] BUN 19 5 - 25 mg/dL LAB CHEMISTRY METHOD 02/17/2025 10:00 AM [facility] Creatinine 0.41(L) 0.50 - 1.10 mg/dL LAB CHEMISTRY METHOD 02/17/2025 10:00 AM [facility] eGFR 98 >=60 mL/min/1. 73m2 LAB CHEMISTRY METHOD 02/17/2025 10:00 AM [facility] Comment:Calculation based on the Chronic Kidney Disease Epidemiology Collaboration (CKD-EPI) equation refit without adjustment for race. BUN/Creatinine Ratio 46.3 LAB CHEMISTRY METHOD 02/17/2025 10:00 AM [facility] Calcium 8.7 8.5 - 10.5 mg/dL LAB CHEMISTRY METHOD 02/17/2025 10:00 AM [facility] Blood Venous blood specimen / Unknown Venipuncture / Unknown 02/17/2025 6:11 AM EDT 02/17/2025 8:50 AM EDT us Jeronimo Norris MD LAB BLOOD ORDERABLES Final Resu lt [facility] [address] [place] [address], * (ABNORMAL) Complete blood count (02/17/2025 6:11 AM EDT) [facility] WBC 8.3 4.8 - 10.8 K/mcL LAB HEMETOLOGY METHOD 02/17/2025 9:03 AM EDT [facility] RBC 2.90(L) 3.80 - 4.80 M/mcL LAB HEMETOLOGY METHOD 02/17/2025 9:03 AM EDT [facility] Hemoglobin 9.2(L) 11.5 - 16.0 g/dL LAB HEMETOLOGY METHOD [facility]/17[facility]25 [facility] Hematocrit 28.0(L) 35.0 - 47.0 % LAB HEMETOLOGY METHOD 02/17/2025 9[facility] MCV 95.6 79.0 - 98.0 FL LAB HEMETOLOGY METHOD 02/17/2025 9[facility] MCH 31.4 27.0 - 32.0 pcg LAB HEMETOLOGY METHOD 02/17/2025 9:03 AM [facility] MCHC 32.9 32.0 - 37.0 g/dL LAB HEMETOLOGY METHOD 02/17/2025 9[facility] RDW 13.6 11.0 - 15.0 % LAB HEMETOLOGY METHOD 02/17/2025 9[facility] Platelets 403(H) 130 - 400 K/mcL LAB HEMETOLOGY METHOD 02/17/2025 9:03 [facility] MPV 10.4 7.0 - 11.0 FL LAB HEMETOLOGY METHOD 02/17/2025 9:03 AM EDT [facility] NRBC 0.0 <1.0 % LAB HEMETOLOGY METHOD 02/17/2025 9:03 AM EDT [facility] NRBC Absolute 0.00 <0.10 K/mcL LAB HEMETOLOGY METHOD 02/17/2025 9:03 AM EDT [facility] Blood Venous blood specimen / Unknown Venipuncture / Unknown 02/17/2025 6:11 AM EDT 02/17/2025 8:50 AM EDT Jeronimo Norris MD LAB BLOOD ORDERABLES Final Resu lt [facility] [address] [place] [address], documented in this encounter Visit Diagnoses Diagnosis Essential (primary) hypertension Unspecified essential hypertension Gastro-esophageal reflux disease without esophagitis documented in this encounter Care Teams Prop Cutter Relationship Specialty Start Date End Date Jeronimo Norris MD [address] [place] [address] PCP - General Internal Medicine 02/10/25 documented as of this encounter
--- OUTSIDE RECORDS SUMMARY | 2025-04-29 11:07 | XMS_ITS | Clinical Summary ---
Author Organization [facility] Address [address] [place] [address] Phone Care Team Providers Care Mechanical Engineering Technician Name Role Phone Unavailable Primary Care Provider Unavailabl e Social History Tobacco Use Types Packs/Day Years Used Date Smoking Tobacco: Never Assessed Education Answer Date Recorded Are you interested in more education? Not on rosalie e 11/21/2023 Are you concerned about learning? Not on file 11/21/2023 No 11/21/2023 No 11/21/2023 Digital Access Answer Date Recorded No 11/21/2023 No 11/21/2023 Reliable internet access at home? Not on file 11/21/2023 Device with a working camera? Not on file Comments Unknown Sex and Gender Information Value Date Recorded Sex Assigned at Not on file Legal Sex Female 12:12 PM EST Gender Identity Not on file Sexual Orientation Not on file Plan of Treatment Not on file Medical Devices Not on file Additional Source Comments The information contained in this document represents components of the legal health record. It is not the complete legal health record.[facility]
== END 2025-04-29 11:03 | disposition home or self-care (01) ==
LOC: HO.HOS 10:36
PROVIDERS: Visit Provider Physician Assistant
DX: S72.141A Displaced intertrochanteric fracture of right femur, initial encounter for closed fracture (principal)
CPT/HCPCS: 99024

== ENCOUNTER → 2025-04-29 10:39 | Outpatient (BNV) | payer MEDICARE, SELFPAY | PROVIDERS: Visit Provider Radiology Diagnostic Radiology | DX: S72.141D Displaced intertrochanteric fracture of right femur, subsequent encounter for closed fracture with routine healing (principal) | CPT/HCPCS: 73552 ==

== ENCOUNTER 2025-05-09 12:26 | Outpatient (REF) | payer MEDICARE, SELFPAY ==
[2025-05-09 13:12] LABS: Hematocrit 39.0 % (37.0-47.0); Hemoglobin 13.5 g/dl (12.0-16.0); Imm Gran Abs Auto 0.05 X10*3/uL (0.00-0.03); Imm Gran Pct Auto 0.5 % (0.0-0.4); Lymphocytes Absolute Auto 2.4 X10*3/uL (1.2-4.9); MANUAL DIFF FLAG SCAN; Mean Corpuscular HGB Conc 34.6 g/dl (31.0-35.0); Mean Corpuscular Hemoglobin 30.4 pg (27.0-33.0); Mean Corpuscular Volume 87.8 fL (80.0-98.0); NRBC Abs Auto 0.000 X10*3/uL (0.0-0.012); NRBC Pct Auto 0.0 /100WBC (0.0-0.2); PLT CLUMP 1; Red Blood Count 4.44 X10*6/uL (4.20-5.50); SCAN SMEAR FLAG 1
[2025-05-09 13:13] LABS: White Blood Count 10.5 X10*3/uL (4.8-10.8)
--- OUTSIDE RECORDS SUMMARY | 2025-05-09 13:19 | XMS_ITS | Clinical Summary ---
Author Organization [facility] Address [address] [place] [address] Phone Care Team Providers Care Clerical Receptionist Name Role Phone Unavailable Primary Care Provider [...] It is not the complete legal health record.[facility]
--- OUTSIDE RECORDS SUMMARY | 2025-05-09 13:19 | XMS_ITS | Encounter Summary ---
Author Organization [facility] Address [address] [place] [address] Care Team Providers Care Pipe Stem Sawyer Name Role Phone Jeronimo Norris MD Primary Care Provider [phone] Encounter Details Date Type Department Care Team (Late st Contact Info) Description 02/13/2025 Lab Requisition [facility] - Main Lab [address] [facility] [address] [place] [address] Jeronimo Norris MD [address] [place] [address] Essential (primary) hypertension; Gastro-esophageal [...] mmol/L LAB CHEMISTRY METHOD 02/14/2025 9:15 AM [facility] Potassium 4.8 3.5 - 5.5 mmol/L LAB CHEMISTRY METHOD 02/14/2025 9:15 AM [facility] Chloride 107 96 - 110 mmol/L LAB CHEMISTRY METHOD 02/14/2025 9:15 AM [facility] CO2 25 21 - 32 mmol/L LAB CHEMISTRY METHOD 02/14/2025 9:15 AM [facility] Anion Gap 9 3 - 11 LAB CHEMISTRY METHOD 02/14/2025 9:15 AM [facility] Glucose 92 70 - 100 mg/dL LAB CHEMISTRY METHOD 02/14/2025 9:15 AM [facility] BUN 25 5 - 25 mg/dL LAB CHEMISTRY METHOD 02/14/2025 9:15 AM [facility] Creatinine 0.60 0.50 - 1.10 mg/dL LAB CHEMISTRY METHOD 02/14/2025 9:15 AM [facility] eGFR 90 >=60 mL/min/1. 73m2 LAB CHEMISTRY METHOD 02/14/2025 9:15 AM [facility] Comment:Calculation based on the Chronic Kidney Disease Epidemiology Collaboration (CKD-EPI) equation refit without adjustment for race. BUN/Creatinine Ratio 41.7 LAB CHEMISTRY METHOD 02/14/2025 9:15 AM [facility] Calcium 8.8 8.5 - 10.5 mg/dL LAB CHEMISTRY METHOD 02/14/2025 9:15 AM [facility] AST (SGOT) 46(H) 10 - 42 unit/L LAB CHEMISTRY METHOD 02/14/2025 9:15 AM [facility] ALT (SGPT) 23 10 - 60 unit/L LAB CHEMISTRY METHOD 02/14/2025 9:15 AM [facility] Alkaline Phosphatase 70 42 - 121 unit/L LAB CHEMISTRY METHOD 02/14/2025 9:15 AM EDT [facility] Total Protein 5.5(L) 6.0 - 8.0 g/dL LAB CHEMISTRY METHOD 02/14/2025 9:15 AM [facility] Albumin 2.5(L) 3.2 - 5.0 g/dL LAB CHEMISTRY METHOD 02/14/2025 9:15 AM [facility] Total Bilirubin 0.5 0.0 - 1.4 mg/dL LAB CHEMISTRY METHOD 02/14/2025 9:15 AM [facility] Blood Venous blood specimen / Unknown Venipuncture / Unknown 02/14/2025 6:22 AM EDT 02/14/2025 8:24 AM EDT Jeronimo Norris MD LAB BLOOD ORDERABLES Final Resu lt [facility] [address] [place] [address], * (ABNORMAL) Complete blood count (02/14/2025 6:22 AM EDT) WBC 14.2(H) 4.8 - 10.8 K/[facility] LAB HEMETOLOGY METHOD 02/14/2025 8:46 AM [facility] RBC 3.30(L) 3.80 - 4.80 M/[facility] LAB HEMETOLOGY METHOD 02/14/2025 8:46 AM [facility] Hemoglobin 10.0(L) 11.5 - 16.0 g/dL LAB HEMETOLOGY METHOD 02/14/2025 8:46 AM [facility] Hematocrit 31.6(L) 35.0 - 47.0 % LAB HEMETOLOGY METHOD 02/14/2025 8:46 AM [facility] MCV 96.0 79.0 - 98.0 FL LAB HEMETOLOGY METHOD 02/14/2025 8:46 AM EDT [facility] MCH 30.4 27.0 - 32.0 pcg LAB HEMETOLOGY METHOD 02/14/2025 8:46 AM EDT [facility] MCHC 31.6(L) 32.0 - 37.0 g/dL LAB HEMETOLOGY METHOD 02/14/2025 8:46 AM EDT [facility] RDW 13.1 11.0 - 15.0 % LAB HEMETOLOGY METHOD 02/14/2025 8:46 AM EDT [facility] Platelets 321 130 - 400 K/mcL LAB HEMETOLOGY METHOD 02/14/2025 8:46 AM EDT [facility] MPV 10.6 7.0 - 11.0 FL LAB HEMETOLOGY METHOD 02/14/2025 8:46 AM EDT [facility] NRBC 0.0 <1.0 % LAB HEMETOLOGY METHOD 02/14/2025 8:46 AM T [facility] NRBC Absolute 0.00 <0.10 K/mcL LAB HEMETOLOGY METHOD 02/14/2025 8:46 AM T [facility] Blood Venous blood specimen / Unknown Venipuncture / Unknown 02/14/2025 6:22 AM EDT 02/14/2025 8:34 AM EDT us Jeronimo Norris MD LAB BLOOD ORDERABLES Final Resu lt [facility] [address] [place] [address], documented in this encounter Visit Diagnoses Diagnosis Essential (primary) hypertension Unspecified essential hypertension Gastro-esophageal reflux disease without esophagitis documented in this encounter Care Teams Pipe Stem Sawyer Relationship Specialty Start Date End Date Jeronimo Norris MD [address] [place] [address] PCP - General Internal Medicine 02/10/25 documented as of this encounter
--- OUTSIDE RECORDS SUMMARY | 2025-05-09 13:19 | XMS_ITS | Patient Health Record ---
[facility] Organization [facility] Address [address] [facility] [place] [address] Care Team Providers Care Assistant Loan Processor Name Role Phone Ismael Davis MD Primary Care Provider Kaiser Cerna Unavailable [phone] Allergies Allergen (clinical drug ingredient) Drug/Non Drug [...] Status Risk Notes Problem Acquired hallux valgus (73425720) Hallux valgus (acquired), left foot (M20.12) Active confirmed Problem Acquired hallux valgus (84510137) Hallux valgus (acquired), right foot (M20.11) Active confirmed Problem Plantar fascial fibromatosis (83445345) 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 Problem Acquired hammer toe of right foot ([id number] 5) Other hammer toe(s) (acquired), right foot (M20.41) Active confirmed Problem Acquired hammer toe of left foot (684305585760254 3) Other hammer toe(s) (acquired), left foot (M20.42) Active confirmed Encounters Encounter Location Date Provider Diagnosis [facility] [place] [address] [place] [address] 08/03/2024 [facility] Plan Of Treatment Pending Test Test Name [...] Medicare Advantage [address] [place] [address] [id number] Vero Ramírez Self - patient is the insured Medical (General) History Medical History History ICD Code Arthritis Back,Hip,and Knee pain Depression Headaches/Migraines Kidney disease Measles Mumps Chicken pox Surgical History Surgery Date(Month/Year) hysterectomy gall bladder Hospitalization History Reason Date(Month/Year) [place] [facility]- Bee sting [place]23[place] [facility] [place]umatoid [place] 11/2023
--- OUTSIDE RECORDS SUMMARY | 2025-05-09 13:19 | XMS_ITS | Encounter Summary ---
Author Organization [facility] Address [address] [place] [address] Care Team Providers Care Industrial Ecology Technician Name Role Phone Name, Rafael TAVERA Primary Care Provider Christal Piedra MD Primary Care Provider Africa Ibrahim MD Primary Care Provider Un available Jose Lopez MD Primary Care Provider Unavail Javier Patel MD Primary Care Provider [phone] Reason for Visit * Reason Onset Date Comments Wrist Pain 05/12/2014 fell, hurt right wrist Encounter Details Date Type Department Care Team Description 05/12/2014 Telephone Adult [address] [id number] Name, MD Rafael Wrist Pain (fell, hurt [...] fell on Friday05/09/14 PCP: Rafael Name Payor: [facility] FFS / Plan: [facility] MEDICARE PLUS $15 [place] / Product Type: MEDICARE [id number] documented in this encounter Plan of Treatment Not on file documented as of this encounter Visit Diagnoses Not on filedocumented in this encounter Care Teams Industrial Ecology Technician Relationship Specialty Start Date End Date Name, MD Rafael PCP - General 12/13/09 11/14/15 Christal Celestin MD PCP - General Internal Medicine 11/15/15 11/30/18 Africa Blankenship MD PCP - General Internal Medicine 12/01/18 9 Jose Lopez MD PCP - General Internal Medicine 01/19/19 04/11/20 Javier Eller MD [address] [place] [id number] PCP - General Internal Medicine 04/12/20 documented as of this encounter
[2025-05-09 14:05] LABS: Alanine Aminotransferase 14 U/L (0-31); Albumin Level 4.2 g/dL (3.5-5.0); Alkaline Phosphatase 74 U/L (39-117); Anion Gap 16 (12-20); Aspartate Amino Transferase 19 U/L (5-31); Blood Urea Nitrogen 23 mg/dL (9-16); Calcium 9.6 mg/dL (8.4-10.2); Carbon Dioxide 26 mmol/L (22-29); Chloride 105 mmol/L (96-108); Estimated Glomerular Filt Rate > 60; Potassium 3.0 mmol/L (3.3-5.1); Sodium 144 mmol/L (135-145); Total Protein 7.0 g/dL (6.5-8.0)
== END 2025-05-09 12:27 | disposition home or self-care (01) ==
LOC: HO.LAB 12:26
PROVIDERS: PCP Physician Assistant; Visit Provider Student in an Organized Health Care Education/Training Program
DX: M81.0 Age-related osteoporosis without current pathological fracture (principal); Z79.899 Other long term (current) drug therapy
CPT/HCPCS: 36415; 80053; 82306; 85025; 85652; 86140

== ENCOUNTER 2025-05-13 15:40 | Outpatient (AMB) | payer MEDICARE, SELFPAY ==
--- NOTE | 2025-05-13 15:41 | A.OFFVIS_ITS ---
Vital Signs 05/13/25 15:50 Height 5 ft Weight 130 lb 8.218 oz BMI 25.5 BP 132/80 Blood Pressure Location Lt brachial Position Sitting Pulse 85 Pulse Source Pulse Oximeter Pulse Oximetry (%) 98 Oxygen Delivery Method Room Air Intake Visit Reasons: PMR Intake Note: Patient presents for PMR follow up. Patient c/o pain all over. Allergies naproxen (NAPROXEN) Allergy (Intermediate, Verified 04/29/25 10:52) BLISTERS IN MOUTH Sulfa (Sulfonamide Antibiotics) (SULFA (SULFONAMIDE ANTIBIOTICS)) Allergy (Intermediate, Verified 04/29/25 10:52) BLISTERS ON TONGUE Medication List - Last Reconciled 05/13/25 by Elicia Aguilar MD acetaminophen 1,000 mg PO BID PRN albuterol sulfate 90 mcg/actuation 2 puffs inhalation Q6H PRN cholecalciferol (vitamin D3) (Vitamin D3) 25 mcg PO DAILY dicyclomine 10 mg PO BID fluticasone propionate 50 mcg/actuation (Allergy Relief (fluticasone)) 1 spray intranasal DAILY PRN folic acid 1 mg PO DAILY hydrochlorothiazide 25 mg PO DAILY levothyroxine 25 mcg PO DAILY@0600 magnesium oxide 400 mg PO DAILY meclizine 12.5 mg PO TID PRN metoprolol tartrate 12.5 mg PO BID omeprazole 20 mg PO DAILY@0630 potassium chloride ER 20 mEq PO DAILY prednisone Take 15mg daily until symptomatic improvement, then take 2.5mg daily for maintenance; sertraline 25 mg PO BEDTIME simvastatin 20 mg PO DAILY [TLSO [place] TLSO or other comparable orthotic ] tramadol 25 mg (1/2 x 50 mg) PO BID HPI Comments Details: Patient is an 84-year-old female with asthma, hypothyroidism, hypertension, hyperlipidemia complicated by coronary artery disease, IBS, osteoporosis complicated by fractures to her thoracic vertebra and right hip fracture, polyarticular osteoarthritis and PMR here today for follow up Interval History: Patient last seen 01/28/[address] Marmolejo - On prednisone 2.5mg tid and alendronate 70mg weekly - Complaining of joint pain, wanted to decrease the prednisone because of weight gain - prednisone decreased to 2.5mg bid Today - On prednisone 2.5mg once a day and alendronate 70mg weekly - States that her arthritis was really bad - Does PT excercises - Has polyarticular OA: main issues include knee and feet Rheumatologic History: PMR 10/2019 some small joint synovitis as well RF/CCP/MARK negative; HCQ started 10/23; eye exam OK 11/24, 09/27, 05/29, 05/30 MTX added 03/27 thru 10/29, remained on hydroxychloroquine Patient stopped hydroxychloroquine due to headaches, ? Blurry vision Prednisone throughout Osteoporosis Jul 2010 BMD T scores -1.9 in LS spine and hip. Alendronate ? Caused hip pain and stomach ache? Restarted February 2016 thr2019 T scores: 11/2020: femur -1.4, fem neck -2.5, LS -1.6 08/2023: fem -1.4, fem neck -2.4, LS -1.5 History: 80yoF referred by her PCP presents for evaluation of Polymyalgia Rheumatica. Diagnosed with PMR in October 2019 after presenting with diffuse pain that acutely worsened. Symptoms were not limited to her shoulder and hip girdle. States that she was started on Prednisone but her symptoms have not improved. Has been on Prednisone for approximately 1.5 years and is currently on 5mg daily. Was following with Dr Louis at [facility] but states that she has not seen him since October 2019. Today Pt reports pain in her neck that radiates down into her shoulders, pain in both hips located in the groin but this only occurs when she is walking. Also with pain and swelling in her hands. Morning stiffness in her hands lasts a few minutes. Does not use any medication for pain, not even OTC. Daughter had RA. Current Rheumatology Medication(s): Prednisone 2.5mg once a day Alendronate 70mg weekly [facility] Medical History (Updated 05/13/25 @ 16:12 by Elicia Aguilar MD) IBS (irritable bowel syndrome) Hyperlipidemia Hypertension Dyspnea on exertion Bronchitis Polymyalgia rheumatica Surgical History History of hip surgery Hx of cholecystectomy Hx of hysterectomy Family History Mother CHF (congestive heart failure) Social History Household Members: Spouse Housing: House Do you presently have visiting nurse or other home services: No Alcohol intake: current Alcohol intake frequency: holidays/special occasions only Patient Tobacco Use Status: Former Tobacco user Tobacco use type: Cigarette Cigarettes Per Day: 15 Years Smoked: 4 e-Cigarette/Vaping Use: Never Used Second Hand Smoke Exposure: No Substance Use Type: Marijuana Advance Directives Date on File: 11/24/23 service: No Current occupational status: retired Physical Exam Exam Exam: Vital signs reviewed Physical Examination CONSTITUITIONAL Patient alert and cooperative. Elderly, frail Using roling walker Examined in chair MSK Hands * Right Hand: Able to make a fist. No swelling or tenderness to palpation of these joints. * Left Hand: Able to make a fist. No swelling or tenderness to palpation of these joints. * Herbedens nodes noted bilaterally Wrists * Right Wrist: Full ROM. 70 degrees of wrist flexion, 80 degrees of wrist extension. No swelling or TTP * Left Wrist: Full ROM. 70 degrees of wrist flexion, 80 degrees of wrist extension. No swelling or TTP Elbows * Right Elbow: Full ROM. No swelling or TTP. No TTP of the medial and lateral epicondyles * Left Elbow: Full ROM. No swelling or TTP. No TTP of the medial and lateral epicondyles Shoulders * Right shoulder: Decreased ROM. No swelling noted. TTP of the AC joint but no TTP subacromial bursa or posterior shoulder * Left shoulder: Decreased ROM. No swelling noted. TTP of the AC joint but no TTP subacromial bursa or posterior shoulder Knees * Right knee: Full ROM. No swelling noted. TTP of the knee joint lie. No TTP of pes anserine bursa * Left knee: Full ROM. No swelling noted. TTP of the knee joint line. No TTP of pes anserine bursa Ankles * Right ankle: Good ankle dorsiflexion and plantar flexion. No swelling. No TTP of the ankle joint * Left ankle: Good ankle dorsiflexion and plantar flexion. No swelling. No TTP of the ankle joint Feet * Right foot: Negative squeeze test * Left foot: Negative squeeze test Tender points? * No tenderness to palpation of the bilateral trapezius, supraspinatus, anterior costochondral junctions, bilateral suboccipital muscle insertions SKIN No rashes Vital Signs: Last Vital Signs Pulse 85 05/13/25 15:50 BP 132/80 05/13/25 15:50 Pulse Ox 98 05/13/25 15:50 Oxygen Delivery Method Room Air 05/13/25 15:50 BMI result Body Mass Index 25.5 Office Procedures AMB Joint Injection/Aspiration Joint Injection/Aspiration Details: Procedure was explained to the patient and informed consent was obtained. ? Risks associated with the procedure were discussed with the patient including but not limited to bleeding, infection, drug reactions and reactions to the t opical anesthetic. Patient made aware of signs to look out for infectious complications. The area of interest was identified and confirmed with patient. ?This was subsequently cleaned with chlorhexidine x 2. ? The area was then anesthetized using ethyl chloride spray. 40 mg Kenalog with 1 cc 1% lidocaine was injected without issue. ?Minimal to no bleeding. ?Patient tolerated procedure. Primary Site: right knee Prep: site was prepped using aseptic technique and ethochloride spray was applied Injected: 40 mg of, Kenalog, with 1 mL of and 1% plain lidocaine Approach Used: anterior Procedure: The patient tolerated the procedure well Coding 21085 - Large joint Procedure code (CPT) selection complete AMB Joint Injection/Aspiration Joint Injection/Aspiration Details: Procedure was explained to the patient and informed consent was obtained. ? Risks associated with the procedure were discussed with the patient including but not limited to bleeding, infection, drug reactions and reactions to the topical anesthetic. Patient made aware of signs to look out for infectious complications. The area of interest was identified and confirmed with patient. ?This was subsequently cleaned with chlorhexidine x 2. ? The area was then anesthetized using ethyl chloride spray. 40 mg Kenalog with 1 cc 1% lidocaine was injected without issue. ?Minimal to no bleeding. ?Patient tolerated procedure. Primary Site: left knee Prep: site was prepped using aseptic technique and ethochloride spray was a pplied Injected: 40 mg of, Kenalog, with 1 mL of and 1% plain lidocaine Approach Used: anterior Procedure: The patient tolerated the procedure well Coding 08877 - Large joint Procedure code (CPT) selection complete Office Meds lidocaine (PF) 10 mg/mL (1 %) injection solution Performing Provider: Elicia Aguilar MD [place] [facility] [place] Administered by: Na Black RN on 05/13/25 16:28 Dose Route Admin Location Dispensed Lot Number Ex[place] Date [facility] [employer] Techn[employer] 1 mL Infiltration right knee 2 mL [id number] 03/12/27 85791-356-35 FR [employer] Total Dispensed Waste 2 mL 50 % Kenalog 40 mg/mL suspension for injection Performing Provider: Elicia Aguilar MD Performing [place] [facility] [place] [facility] Administered by: Na Black RN on 05/13/25 16:28 Dose Route Admin Location Dispensed Lot Number Expiration Date [place] Calibration Technician 40 mg intra-articular right knee 1 mL [id number] 04/11/26 [address]- 1 [employer] Total Dispensed Waste 1 mL 0 % lidocaine (PF) 10 mg/mL (1 %) injection solution Performing Provider: Elicia Aguilar MD Performing Location: [facility] [place] [facility] Administered by: Na Black RN on 05/13/25 16:28 Dose Route Admin Location Dispensed Lot Number Expiration Date [place] Calibration Technician 1 mL Infiltration left knee 2 mL [id number] 03/12/27 46285-764-43 MARIAH SENIUS KABI Total Dispensed Waste 2 mL 50 % Kenalog 40 mg/mL suspension for injection Performing Provider: Elicia Aguilar MD Performing Location: [facility] [place] [facility] Administered by: Na Black RN on 05/13/25 16:28 Dose Route Admin Location Dispensed Lot Number Expiration Date [facility] Calibration Technician 40 mg intra-articular left knee 1 mL [id number] 04/11/26 [address]-4 [employer] Total Dispensed Waste 1 mL 0 % Results Reviewed Results Reviewed: Laboratory Tests 12/18/23 03/14/25 05/09/25 11:35 16:10 12:45 WBC 10.5 RBC 4.44 Hgb 13.5 Hct 39.0 Plt Count 340 D ESR 26 H Sodium 144 Potassium 3.0 L Chloride 105 Carbon Dioxide 26 BUN 23 H Creatinine 0.70 AST 19 ALT 14 C-Reactive Protein 1.00 H 0.57 H 25-OH Vitamin D Total 46.4 Laboratory Tests 04/13/21 10:35 Rheumatoid Factor < 15.0 Cycl Citrul Peptide IgG <16 DEXA 08/2023 FINDINGS: LEFT FEMUR, NECK: Current: BMD 0.705 g/cm2, Z-score -0.4, T-score -2.4, osteopenia. Baseline: BMD 0.691 g/cm2. LEFT FEMUR, TOTAL: Current: BMD 0.834 g/cm2, Z-score 0.5, T-score -1.4, osteopenia, 0.5% decrease from baseline (<5% change is not significant). Baseline: BMD 0.838 g/cm2. AP SPINE L1-L3 (excluding L4): The data of L1-L4 has been changed to exclude the L4 vertebral body, because degenerative sclerosis at this level may cause overestimation of lumbar spine density. Current: BMD 0.988 g/cm2, Z-score 0.0, T-score -1.5, osteopenia, 0.9% increase from baseline (<5% change is not significant). Baseline: BMD 0.979 g/cm2. Assessment & Plan Assessment & Plan (1) Polymyalgia rheumatica: Comment: some small joint synovitis as well RF/CCP/MARK negative; HCQ started 10/23; eye exam OK 11/24, 09/27, 05/29, 05/30 MTX added 03/27 thru 10/29, remained on hydroxychloroquine Patient stopped hydroxychloroquine due to headaches, ? Blurry vision Code(s): M35.3 - Polymyalgia rheumatica Category: Medical Plan: #PMR Patient is an 84-year-old female with PMR currently in remission. On 2.5 mg of prednisone. We will stop the medication Plan - Stop prednisone - Monitor off therapy - RTC 4 months - Labs before visit: CBC, CMP, ESR, CRP (2) Osteoporosis: Comment: DEXA 08/2023: AP Spine -1.5, Left femur neck -2.4, Left femur total -1.4 DEXA 11/2020: AP Spine -1.6, Left femur neck -2.5, Left femur total -1.4 On alendronate in 2009 then went on drug holiday on restarted 2015 to 2019 Code(s): M81.0 - Age-related osteoporosis without current pathological fracture Category: Medical Qualifiers: Osteoporosis type: age-related Presence of current pathological fracture: without current pathological fracture Qualified Code(s): M81.0 - Age- related osteoporosis without current pathological fracture Plan: #Osteoporosis Patient with osteoporosis currently on a drug holiday from her alendronate since 2019 Most recent bone density showing osteopenia especially of her left femur. We will repeat bone density 08/2025 Plan - Vit D supplementation - DEXA 08/2025 - Check Vit D at next blood draw (3) Polyarticular osteoarthritis: Code(s): M15.9 - Polyosteoarthritis, unspecified Plan: #Polyarticular OA Patient with polyarticular osteoarthritis Today complaining of bilateral knee pain Status post steroid injection Plan I spent 30 minutes reviewing the record and labs, taking a history, examining the patient, discussing the treatment plan, ordering diagnostic work up and documenting in the medical record Orders: Orders AMB Joint Injection/Aspiration Today M17.0 - Bilateral primary osteoarthritis of knee AMB Joint Injection/Aspiration Today M17.0 - Bilateral primary osteoarthritis of knee Coding Level of Care Code Est Pt Level 4 (71449) Complex EM visit Add On G2211 Diagnoses Polymyalgia rheumatica M35.3 Age-related osteoporosis without current pathological fracture M81.0 Osteoporosis type: age-related Presence of current pathological fracture: without current pathological fracture Polyarticular osteoarthritis M15.9 CPT Codes Coding - 52795 Large joint: 18153 - Large joint ([id number]) Coding - 24940 Large joint: 49652 - Large joint ([id number])
[2025-05-13 15:50] VITALS: BP 132/80; PULSE 85; O2SAT 98; BMI 25.5
== END 2025-05-13 16:38 | disposition home or self-care (01) ==
LOC: HO.RHE 15:41
PROVIDERS: PCP Internal Medicine; Visit Provider Student in an Organized Health Care Education/Training Program
DX: M35.3 Polymyalgia rheumatica (principal); M81.0 Age-related osteoporosis without current pathological fracture; M15.9 Polyosteoarthritis, unspecified; M17.0 Bilateral primary osteoarthritis of knee
CPT/HCPCS: 20610; 99214

== ENCOUNTER → 2025-05-13 15:40 | Outpatient (BNVA) | payer MEDICARE, SELFPAY | PROVIDERS: PCP Internal Medicine; Visit Provider Student in an Organized Health Care Education/Training Program | DX: M17.0 Bilateral primary osteoarthritis of knee (principal); M81.0 Age-related osteoporosis without current pathological fracture | CPT/HCPCS: 20610; 99212; J2003; J3300 ==

== ENCOUNTER 2025-06-24 08:32 | Outpatient (REF) | payer MEDICARE, SELFPAY ==
--- OUTSIDE RECORDS SUMMARY | 2024-08-05 06:45 | XMS_ITS ---
Author Organization [facility] Address [address] [place] [address] Care Team Providers Care Refund Clerk Name Role Phone Ismael Davis MD Primary Care Provider Kaiser Cerna [phone] REASON FOR VISIT Last PCP Visit: 04/26/24, Ingrown nail(s) Medications Medication SIG (Take, Route, Frequency, Duration) Notes Start Date End Date Status Voltaren 1 % as directed Externally Active Night Splint AFO - L1930 as directed Active Problems Problem Type SNOMED Code ICD Code Onset Dates Problem Status W/U Status Risk Notes Problem Plantar fascial fibromatosis (68278621) 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 Encounters Encounter Location Date Provider Diagnosis [facility] [address] [place] [address] 08/05/2024 Kaiser Riddle Tinea unguium B35.1 ; [...] * Vero CONNELLYDOB: [birth year] (84 yo F)Acc No.[id number]:08/05/2024 Progress Note Patient: Vero YOUNGBLOOD Provider: Yudelka Riddle DPM :1940 A ge:83 Y S ex:Female Date:08/05/2024 Address: [address], [facility], [id number] Pcp:Ismael Davis MD Subjective: * Chief Complaints: [...] enies. C ardiovascular: Pacemaker d enies. M INSTRUMENT TECH d enies. W PW d enies. C [...] Date: Generated for Astrid mello/Jason/Rhett on: 0 06/27/2025 09:39 AM EDT History and Physical Notes * [...]
--- NOTE | ~2025-06-24 | XR_ITS ---
EXAMINATION: XR FEMUR, RIGHT CLINICAL INFORMATION: S72.141A - Displaced intertrochanteric fracture of right femur, initial ... COMPARISON: None available. TECHNIQUE: AP and lateral views of the right femur were obtained. FINDINGS: Postoperative changes are again noted status post ORIF of the right femur with medullary nail extending to the distal metaphysis. There is distal interlocking screw that sits proud of the cortex, unchanged. There is mild anterior bowing of the intramedullary nail that is unchanged. There is a lag screw extending into the femoral head. There is fragmentation of the lesser trochanter which is distracted superomedially. There is increasing sclerosis of the medullary bone in the medial femoral neck consistent with healing. XR/XR femur RT 2V IMPRESSION: Healing intertrochanteric fracture of the right femur post-ORIF. Electronically signed by: Jomar Us MD 06/24/2025 11:57 AM EDT
--- OUTSIDE RECORDS SUMMARY | 2025-06-27 09:39 | XMS_ITS | Encounter Summary ---
Author Organization [facility] Address [address] [place] [address] Care Team Providers Care Valve Inspector Name Role Phone Jeronimo Norris MD Primary Care Provider [phone] Encounter Details Date Type Department Care Team (Late st Contact Info) Description 02/16/2025 Lab Requisition [facility] - Main Lab [address] [facility] [place] [address] Jeronimo Norris MD [address] [place] [address] Essential (primary) hypertension; Gastro-esophageal reflux [...] mmol/L LAB CHEMISTRY METHOD 02/17/2025 10:00 AM [facility] Potassium 4.1 3.5 - 5.5 mmol/L LAB CHEMISTRY METHOD 02/17/2025 10:00 AM [facility] Chloride 104 96 - 110 mmol/L LAB CHEMISTRY METHOD 02/17/2025 10:00 AM [facility] CO2 29 21 - 32 mmol/L LAB CHEMISTRY METHOD 02/17/2025 10:00 AM [facility] Anion Gap 6 3 - 11 LAB CHEMISTRY METHOD 02/17/2025 10:00 AM [facility] Glucose 79 70 - 100 mg/dL LAB CHEMISTRY METHOD 02/17/2025 10:00 AM [facility] BUN 19 5 - 25 mg/dL LAB CHEMISTRY METHOD 02/17/2025 10:00 AM [facility] Creatinine 0.41(L) 0.50 - 1.10 mg/dL LAB CHEMISTRY METHOD 02/17/2025 10:00 AM [facility] eGFR 98 >=60 mL/min/1. 73m2 LAB CHEMISTRY METHOD 02/17/2025 10:00 AM [facility] Comment:Calculation based on the Chronic Kidney Disease Epidemiology Collaboration (CKD-EPI) equation refit without adjustment for race. BUN/Creatinine Ratio 46.3 LAB CHEMISTRY METHOD 02/17/2025 10:00 AM [facility] Calcium 8.7 8.5 - 10.5 mg/dL LAB CHEMISTRY METHOD 02/17/2025 10:00 AM [facility] Blood Venous blood specimen / Unknown Venipuncture / Unknown 02/17/2025 6:11 AM EDT 02/17/2025 8:50 AM EDT us Jeronimo Norris MD LAB BLOOD ORDERABLES Final Resu lt [facility] [address] [place] [address], * (ABNORMAL) Complete blood count (02/17/2025 6:11 AM EDT) [facility] WBC 8.3 4.8 - 10.8 K/mcL LAB HEMETOLOGY METHOD 02/17/2025 9:03 AM EDT [facility] RBC 2.90(L) 3.80 - 4.80 M/mcL LAB HEMETOLOGY METHOD 02/17/2025 9:03 AM EDT [facility] Hemoglobin 9.2(L) 11.5 - 16.0 g/dL LAB HEMETOLOGY METHOD [facility] Hematocrit 28.0(L) 35.0 - 47.0 % LAB HEMETOLOGY METHOD 02/17/2025 [facility] MCV 95.6 79.0 - 98.0 FL LAB HEMETOLOGY METHOD 02/17/2025 [facility] MCH 31.4 27.0 - 32.0 pcg LAB HEMETOLOGY METHOD 02/17/2025 9:03 AM [facility] MCHC 32.9 32.0 - 37.0 g/dL LAB HEMETOLOGY METHOD 02/17/2025 [facility] RDW 13.6 11.0 - 15.0 % LAB HEMETOLOGY METHOD 02/17/2025 9[facility] Platelets 403(H) 130 - 400 K/mcL LAB HEMETOLOGY METHOD 02/17/2025 [facility] MPV 10.4 7.0 - 11.0 FL LAB HEMETOLOGY METHOD 02/17/2025 9:03 AM EDT [facility] NRBC 0.0 <1.0 % LAB HEMETOLOGY METHOD 02/17/2025 9:03 AM EDT [facility] NRBC Absolute 0.00 <0.10 K/mcL LAB HEMETOLOGY METHOD 02/17/2025 9:03 AM EDT [facility] Blood Venous blood specimen / Unknown Venipuncture / Unknown 02/17/2025 6:11 AM EDT 02/17/2025 8:50 AM EDT Jeronimo Norris MD LAB BLOOD ORDERABLES Final Resu lt [facility] [address] [place] [address], documented in this encounter Visit Diagnoses Diagnosis Essential (primary) hypertension Unspecified essential hypertension Gastro-esophageal reflux disease without esophagitis documented in this encounter Care Teams Valve Inspector Relationship Specialty Start Date End Date Jeronimo Norris MD [address] [place] [address] PCP - General Internal Medicine 02/10/25 documented as of this encounter
--- OUTSIDE RECORDS SUMMARY | 2025-06-27 09:39 | XMS_ITS | Encounter Summary ---
Author Organization [facility] Address [address] [place] [address] Care Team Providers Care District Wire Chief Name Role Phone Jeronimo Norris MD Primary Care Provider [phone] Encounter Details Date Type Department Care Team (Late st Contact Info) Description 02/23/2025 Lab Requisition [facility] - Main Lab [address] [facility] [address] Jeronimo Norris MD [address] [place] [address] Essential (primary) hypertension; Gastro-esophageal reflux [...] MD LAB BLOOD ORDERABLES Final Resu lt [facility] [address] [place] [address], * (ABNORMAL) Complete blood count (02/24/2025 6:35 AM EDT) [facility] WBC 7.8 4.8 - 10.8 K/mcL LAB HEMETOLOGY METHOD 02/24/2025 8:52 AM EDT [facility] RBC 3.10(L) 3.80 - 4.80 M/mcL LAB HEMETOLOGY METHOD 02/24/2025 8:52 AM EDT [facility] Hemoglobin 9.6(L) 11.5 - 16.0 g/dL LAB HEMETOLOGY METHOD 02/24/2025 8:52 AM EDT [facility] Hematocrit 29.9(L) 35.0 - 47.0 % LAB HEMETOLOGY METHOD 02/24/2025 8:52 AM EDT [facility] MCV 97.1 79.0 - 98.0 FL LAB HEMETOLOGY METHOD 02/24/2025 8:52 AM EDT [facility] MCH 31.2 27.0 - 32.0 pcg LAB HEMETOLOGY METHOD 02/24/2025 8:52 AM EDT [facility] MCHC 32.1 32.0 - 37.0 g/dL LAB HEMETOLOGY METHOD 02/24/2025 8:52 AM EDT [facility] RDW 14.3 11.0 - 15.0 % LAB HEMETOLOGY METHOD 02/24/2025 8:52 AM EDT [facility] Platelets 537(H) 130 - 400 K/mcL LAB HEMETOLOGY METHOD 02/24/2025 8:52 AM EDT [facility] MPV 9.9 7.0 - 11.0 FL LAB HEMETOLOGY METHOD 02/24/2025 8:52 AM EDT [facility] NRBC 0.0 <1.0 % LAB HEMETOLOGY METHOD 02/24/2025 8:52 AM EDT [facility] NRBC Absolute 0.00 <0.10 K/mcL LAB HEMETOLOGY METHOD 02/24/2025 8:52 AM EDT [facility] Blood Venous blood specimen / Unknown Venipuncture / Unknown 02/24/2025 6:35 AM EDT 02/24/2025 8:22 AM EDT Jeronimo Norris MD LAB BLOOD ORDERABLES Final Resu lt [facility] [address] [place] [address], documented in this encounter Visit Diagnoses Diagnosis Essential (primary) hypertension Unspecified essential hypertension Gastro-esophageal reflux disease without esophagitis documented in this encounter Care Teams District Wire Chief Relationship Specialty Start Date End Date Jeronimo Norris MD [address] [place] [address] PCP - General Internal Medicine 02/10/25 documented as of this encounter
--- OUTSIDE RECORDS SUMMARY | 2025-06-27 09:39 | XMS_ITS | Clinical Summary ---
Author Organization [facility] Address [address] [address] [place] [address] Phone Care Team Providers Care Projection Camera Operator Name Role Phone Unavailable Primary Care Provider [...] It is not the complete legal health record.[facility]
--- OUTSIDE RECORDS SUMMARY | 2025-06-27 09:39 | XMS_ITS | Clinical Summary ---
Author Organization [address] Address [address] [place] [address] Phone Care Team Providers Care Hides Soaker Name Role Phone Jeronimo Norris MD Primary Care Provider [phone] Surgical History Surgery Date Site/Laterality Comments CHOLECYSTECTOMY age 19 PROCEDURE: HISTORICAL CHOLECYSTECTOMY COLONOSCOPY 03/14 PROCEDURE: ME COLONOSCOPY STOMA DX INCLUDING COLLJ SPEC SPX OTHER SURGICAL HISTORY 01/14 PROCEDURE: MAMMOGRAM TONSILLECTOMY ADENOIDECTOMY, BILATERAL MYRINGOTOMY AND TUBES PROCEDURE: ME TONSILLECTOMY & ADENOIDECTOMY <AGE 14 HYSTERECTOMY 1965 PROCEDURE: HISTORICAL HYSTERECTOMY; COMMENT: SHAYE USO ESOPHAGOGASTRODUODENOSCOPY 2 PROCEDURE: ME ESOPHAGOGASTRODUODENOSCOPY TRANSORAL DIAGNOSTIC; COMMENT: normal on PPI rx. CARPAL TUNNEL RELEASE January, PROCEDURE: ME NEUROPLASTY &/TRANSPOS MEDIAN NRV CARPAL TUNNE; COMMENT: [...] 04/26/2006 DX:Keloid scar Sciatica 04/30/2007 DX:Sciatica Polymyalgia (CMS/HCC V24) 02/18/2008 DX:Gokul ymyalgia ([facility]); COMMENT: Onset fall 2006 - prednisone through [...] left wrist; COMMENT: Much better after surgery -02/2015 Esophageal reflux 11/05/2012 DX:Esophageal reflux DDD (degenerative [...] Zoster Vaccines (3 of 3) 06/30/2018 05/05/2018, 10/10/2011 Depression Screening 10/13/2024 Cholesterol Screening (Lipid Panel) 02/10/2025 Falls Risk Assessment 02/10/2025 Medicare Annual Wellness Visit 02/10/2025 Osteoporosis Screening (Bone Density Screening) 02/10/2025 Social Influencers of Health Screening 02/10/2025 COVID-19 Vaccine ( season) 2025 Influenza Vaccine (#1) 2025 , 06/26/2019, 07/04/2017, Additional history exists Hypertension/CHF/CAD Annual [...] disease without esophagitis from Last 3 Months or Most Recently Relevant to Health Maintenance Results * (ABNORMAL) Basic metabolic panel (02/24/2025 6:35 AM EDT) Sodium 138 133 - 145 mmol/L LAB CHEMISTRY METHOD 02/24/2025 9:17 AM EDT [facility] Potassium 4.1 3.5 - [...] Final Resu lt [facility] [address] [place] [address], [place] [phone] from Last 3 Months or Most Recently Relevant to Health Maintenance Insurance [employer] Care Teams Hides Soaker Relationship Specialty Start Date End Date Jeronimo Norris MD [address] [place] [address] PCP - General Internal Medicine 02/10/25
--- OUTSIDE RECORDS SUMMARY | 2025-06-27 09:39 | XMS_ITS | Encounter Summary ---
Author Organization [facility] Address [address] [place] [address] Care Team Providers Care Advisor Consultant Name Role Phone Jeronimo Norris MD Primary Care Provider [phone] Encounter Details Date Type Department Care Team (Late st Contact Info) Description 02/13/2025 Lab Requisition [facility] - Main Lab [address] [facility] [address] Jeronimo Norris MD [address] [place] [address] Essential (primary) hypertension; Gastro-esophageal reflux [...] LAB CHEMISTRY METHOD 02/14/2025 9:15 AM EDT [facility] Total Protein 5.5(L) 6.0 - [...] MD LAB BLOOD ORDERABLES Final Resu lt [facility] [address] [place] [address], * (ABNORMAL) Complete blood count (02/14/2025 6:22 AM EDT) WBC 14.2(H) 4.8 - 10.8 K/[facility] LAB HEMETOLOGY METHOD 02/14/2025 8:46 AM [facility] RBC 3.30(L) 3.80 - 4.80 M/[facility] LAB HEMETOLOGY METHOD 02/14/2025 8:46 AM [facility] Hemoglobin 10.0(L) 11.5 - 16.0 g/dL LAB HEMETOLOGY METHOD 02/14/2025 8:46 AM [facility] Hematocrit 31.6(L) 35.0 - 47.0 % LAB HEMETOLOGY METHOD 02/14/2025 8:46 AM [facility] MCV 96.0 79.0 - 98.0 FL LAB HEMETOLOGY METHOD 02/14/2025 8:46 AM EDT [facility] MCH 30.4 27.0 - 32.0 pcg LAB HEMETOLOGY METHOD 02/14/2025 8:46 AM EDT [facility] MCHC 31.6(L) 32.0 - 37.0 g/dL LAB HEMETOLOGY METHOD 02/14/2025 8:46 AM EDT [facility] RDW 13.1 11.0 - 15.0 % LAB HEMETOLOGY METHOD 02/14/2025 8:46 AM EDT [facility] Platelets 321 130 - 400 K/mcL LAB HEMETOLOGY METHOD 02/14/2025 8:46 AM EDT [facility] MPV 10.6 7.0 - 11.0 FL LAB HEMETOLOGY METHOD 02/14/2025 8:46 AM EDT [facility] NRBC 0.0 <1.0 % LAB HEMETOLOGY METHOD 02/14/2025 8:46 AM T [facility] NRBC Absolute 0.00 <0.10 K/mcL LAB HEMETOLOGY METHOD 02/14/2025 8:46 AM T [facility] Blood Venous blood specimen / Unknown Venipuncture / Unknown 02/14/2025 6:22 AM EDT 02/14/2025 8:34 AM EDT us Jeronimo Norris MD LAB BLOOD ORDERABLES Final Resu lt [facility] [address] [place] [address], documented in this encounter Visit Diagnoses Diagnosis Essential (primary) hypertension Unspecified essential hypertension Gastro-esophageal reflux disease without esophagitis documented in this encounter Care Teams Advisor Consultant Relationship Specialty Start Date End Date Jeronimo Norris MD [address] [place] [address] PCP - General Internal Medicine 02/10/25 documented as of this encounter
--- OUTSIDE RECORDS SUMMARY | 2025-06-27 09:40 | XMS_ITS | Encounter Summary ---
Author Organization [facility] Address [address] [place] [address] Care Team Providers Care Home Day Care Provider Name Role Phone Jeronimo Norris MD Primary Care Provider [phone] Encounter Details Date Type Department Care Team (Late st Contact Info) Description 02/10/2025 Lab Requisition [facility] - Main Lab [address] [facility] [place] [address] Jeronimo Norris MD [address] [place] [address] Essential (primary) hypertension; Gastro-esophageal reflux [...] mmol/L LAB CHEMISTRY METHOD 02/10/2025 10:[address] [facility] Potassium 4.1 3.5 - 5.5 mmol/L LAB CHEMISTRY METHOD 02/10/2025 10:[address] [facility] Chloride 102 96 - 110 mmol/L LAB CHEMISTRY METHOD 02/10/2025 10:[address] [facility] CO2 29 21 - 32 mmol/L LAB CHEMISTRY METHOD 02/10/2025 10:[address] [facility] Anion Gap 7 3 - 11 LAB CHEMISTRY METHOD 02/10/2025 10:[address] [facility] Glucose 87 70 - 100 mg/dL LAB CHEMISTRY METHOD 02/10/2025 10:[address] [facility] BUN 25 5 - 25 mg/dL LAB CHEMISTRY METHOD 02/10/2025 10:[address] [facility] Creatinine 0.78 0.50 - 1.10 mg/dL LAB CHEMISTRY METHOD 02/10/2025 10:[address] [facility] eGFR 76 >=60 mL/min/1. 73m2 LAB CHEMISTRY METHOD 02/10/2025 10:[address] [facility] Comment:Calculation based on the Chronic Kidney Disease Epidemiology Collaboration (CKD-EPI) equation refit without adjustment for race. BUN/Creatinine Ratio 32.1 LAB CHEMISTRY METHOD 02/10/2025 10:[address] [facility] Calcium 8.8 8.5 - 10.5 mg/dL LAB CHEMISTRY METHOD 02/10/2025 10:[address] [facility] AST (SGOT) 16 10 - 42 unit/L LAB CHEMISTRY METHOD 02/10/2025 10:[address] [facility] ALT (SGPT) 8(L) 10 - 60 unit/L LAB CHEMISTRY METHOD 02/10/2025 10:[address] [facility] Alkaline Phosphatase 65 42 - 121 unit/L LAB CHEMISTRY METHOD 02/10/2025 10:19 AM EDT [facility] Total Protein 5.9(L) 6.0 - 8.0 g/dL LAB CHEMISTRY METHOD 02/10/2025 10:[address] [facility] Albumin 2.7(L) 3.2 - 5.0 g/dL LAB CHEMISTRY METHOD 02/10/2025 10:[address] [facility] Total Bilirubin 0.5 0.0 - 1.4 mg/dL LAB CHEMISTRY METHOD 02/10/2025 10:[address] [facility] Blood Venous blood specimen / Unknown Venipuncture / Unknown 02/10/2025 7:49 AM EDT 02/10/2025 9:40 AM EDT Jeronimo Norris MD LAB BLOOD ORDERABLES Final Resu lt [facility] [address] [place] [address], [place] [phone] * (ABNORMAL) Complete blood count (02/10/2025 7:49 AM EDT) WBC 13.5(H) 4.8 - 10.8 K/mcL LAB HEMETOLOGY METHOD 02/10/2025 10:[address] [facility] RBC 3.40(L) 3.80 - 4.80 M/mcL LAB HEMETOLOGY METHOD 02/10/2025 10:[address] [facility] Hemoglobin 10.6(L) 11.5 - 16.0 g/dL LAB HEMETOLOGY METHOD 02/10/2025 10:[address] [facility] Hematocrit 32.6(L) 35.0 - 47.0 % LAB HEMETOLOGY METHOD 02/10/2025 10:[address] [facility] MCV 96.7 79.0 - 98.0 FL LAB HEMETOLOGY METHOD 02/10/2025 10:01 AM EDT [facility] MCH 31.5 27.0 - 32.0 pcg LAB HEMETOLOGY METHOD 02/10/2025 10:[address] [facility] MCHC 32.5 32.0 - 37.0 g/dL LAB HEMETOLOGY METHOD 02/10/2025 10:01 AM EDT [facility] RDW 12.9 11.0 - 15.0 % LAB HEMETOLOGY METHOD 02/10/2025 10:01 AM T [facility] Platelets 254 130 - 400 K/mcL LAB HEMETOLOGY METHOD 02/10/2025 10:[address] [facility] MPV 11.2(H) 7.0 - 11.0 FL LAB HEMETOLOGY METHOD [facility] NRBC 0.0 <1.0 % LAB HEMETOLOGY METHOD 02/10/2025 10:[address] [facility] NRBC Absolute 0.00 <0.10 K/mcL LAB HEMETOLOGY METHOD 02/10/2025 10:[address] [facility] Blood Venous blood specimen / Unknown Venipuncture / Unknown 02/10/2025 7:49 AM EDT 02/10/2025 9:40 AM EDT us Jeronimo Norris MD LAB BLOOD ORDERABLES Final Resu lt [facility] [address] [place] [address], documented in this encounter Visit Diagnoses Diagnosis Essential (primary) hypertension Unspecified essential hypertension Gastro-esophageal reflux disease without esophagitis documented in this encounter Care Teams Home Day Care Provider Relationship Specialty Start Date End Date Jeronimo Norris MD [address] [place] [address] PCP - General Internal Medicine 02/10/25 documented as of this encounter
--- OUTSIDE RECORDS SUMMARY | 2025-06-27 09:40 | XMS_ITS | Patient Health Record ---
Author Organization [facility] Address [address] [place] [address] Care Team Providers Care Tungsten Tender Name Role Phone Ismael Davis MD Primary Care Provider [facility] Unavailable [phone] Allergies Allergen (clinical drug ingredient) Drug/Non Drug [...] Status Risk Notes Problem Acquired hallux valgus (20149855) Hallux valgus (acquired), left foot (M20.12) Active confirmed Problem Acquired hallux valgus (26299938) Hallux valgus (acquired), right foot (M20.11) Active confirmed Problem Plantar fascial fibromatosis (30444022) 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 Problem Acquired hammer toe of right foot ([id number] 5) Other hammer toe(s) (acquired), right foot (M20.41) Active confirmed Problem Acquired hammer toe of left foot ([id number] 3) Other hammer toe(s) (acquired), left foot (M20.42) Active confirmed Encounters Encounter Location Date Provider Diagnosis [facility] [place] [address] [place] [address] 08/03/2024 [facility] Plan Of Treatment Pending [...] Medicare Advantage [address] [place] [address] [id number] Vero Ramírez Self - patient is the insured Medical (General) History Medical History History ICD Code Arthritis Back,Hip,and Knee pain Depression Headaches/Migraines Kidney disease Measles Mumps Chicken pox Surgical History Surgery Date(Month/Year) hysterectomy gall bladder Hospitalization History Reason Date(Month/Year) [place] [facility]- Bee sting 04/23/24 [facility] [place] [facility]- Rheumatoid arthritis 11/2023
--- OUTSIDE RECORDS SUMMARY | 2025-06-27 09:40 | XMS_ITS | Encounter Summary ---
Author Organization [facility] Address [address] [place] [address] Care Team Providers Care Cutting Pressman Name Role Phone Jeronimo Norris MD Primary Care Provider [phone] Encounter Details Date Type Department Care Team (Late st Contact Info) Description 02/20/2025 Lab Requisition [facility] - Main Lab [address] [facility] [address] [place] [address] Jeronimo Norris MD [address] [place] [address] Essential (primary) hypertension; Gastro-esophageal reflux [...] mmol/L LAB CHEMISTRY METHOD 02/21/2025 12:55 PM [facility] Potassium 4.1 3.5 - 5.5 mmol/L LAB CHEMISTRY METHOD 02/21/2025 12:55 PM [facility] Chloride 102 96 - 110 mmol/L LAB CHEMISTRY METHOD 02/21/2025 12:55 PM [facility] CO2 27 21 - 32 mmol/L LAB CHEMISTRY METHOD 02/21/2025 12:55 PM [facility] Anion Gap 10 3 - 11 LAB CHEMISTRY METHOD 02/21/2025 12:55 PM [facility] Glucose 78 70 - 100 mg/dL LAB CHEMISTRY METHOD 02/21/2025 12:55 PM [facility] BUN 20 5 - 25 mg/dL LAB CHEMISTRY METHOD 02/21/2025 12:55 PM [facility] Creatinine 0.56 0.50 - 1.10 mg/dL LAB CHEMISTRY METHOD 02/21/2025 12:55 PM [facility] eGFR 91 >=60 mL/min/1. 73m2 LAB CHEMISTRY METHOD 02/21/2025 12:55 PM [facility] Comment:Calculation based on the Chronic Kidney Disease Epidemiology Collaboration (CKD-EPI) equation refit without adjustment for race. BUN/Creatinine Ratio 35.7 LAB CHEMISTRY METHOD 02/21/2025 12:55 PM [facility] Calcium 8.8 8.5 - 10.5 mg/dL LAB CHEMISTRY METHOD 02/21/2025 12:55 PM [facility] AST (SGOT) 15 10 - 42 unit/L LAB CHEMISTRY METHOD 02/21/2025 12:55 PM [facility] ALT (SGPT) 14 10 - 60 unit/L LAB CHEMISTRY METHOD 02/21/2025 12:55 PM [facility] Alkaline Phosphatase 79 42 - 121 unit/L LAB CHEMISTRY METHOD 02/21/2025 12:55 PM EDT [facility] Total Protein 5.7(L) 6.0 - 8.0 g/dL LAB CHEMISTRY METHOD 02/21/2025 12:55 PM EDT [facility] Albumin 2.6(L) 3.2 - 5.0 g/dL LAB CHEMISTRY METHOD 02/21/2025 12:55 PM EDT [facility] Total Bilirubin 0.3 0.0 - 1.4 mg/dL LAB CHEMISTRY METHOD 02/21/2025 12:55 PM EDT [facility] Blood Venous blood specimen / Unknown 02/21/2025 5:59 AM EDT 02/21/2025 11:33 AM EDT us Jeronimo Norris MD LAB BLOOD ORDERABLES Final Resu lt [facility] [address] [place] [address], [place] [phone] * (ABNORMAL) Complete blood count (02/21/2025 5:59 AM EDT) WBC 9.2 4.8 - 10.8 K/mcL LAB HEMETOLOGY METHOD 02/21/2025 1:48 PM EDT [facility] RBC 3.10(L) 3.80 - 4.80 M/mcL LAB HEMETOLOGY METHOD 02/21/2025 1:48 PM EDT [facility] Hemoglobin 9.6(L) 11.5 - 16.0 g/dL LAB HEMETOLOGY METHOD 02/21/2025 1:48 PM EDT [facility] Hematocrit 31.1(L) 35.0 - 47.0 % LAB HEMETOLOGY METHOD 02/21/2025 1:48 PM EDT [facility] MCV 100.0(H) 79.0 - 98.0 FL LAB HEMETOLOGY METHOD 02/21/2025 1:48 PM EDT [facility] MCH 30.9 27.0 - 32.0 pcg LAB HEMETOLOGY METHOD 02/21/2025 1:48 PM EDT [facility] MCHC 30.9(L) 32.0 - 37.0 g/dL LAB HEMETOLOGY METHOD 02/21/2025 1:48 PM EDT [facility] RDW 14.4 11.0 - 15.0 % LAB HEMETOLOGY METHOD 02/21/2025 1:48 PM EDT [facility] Platelets 563(H) 130 - 400 K/mcL LAB HEMETOLOGY METHOD 02/21/2025 1:48 PM EDT [facility] MPV 9.9 7.0 - 11.0 FL LAB HEMETOLOGY METHOD 02/21/2025 1:48 PM EDT [facility] NRBC 0.0 <1.0 % LAB HEMETOLOGY METHOD 02/21/2025 1:48 PM EDT [facility] NRBC Absolute 0.00 <0.10 K/mcL LAB HEMETOLOGY METHOD 02/21/2025 1:48 PM EDT [facility] Blood Venous blood specimen / Unknown 02/21/2025 5:59 AM EDT 02/21/2025 11:33 AM EDT us Jeronimo Norris MD LAB BLOOD ORDERABLES Final Resu lt [facility] [address] [place] [address], documented in this encounter Visit Diagnoses Diagnosis Essential (primary) hypertension Unspecified essential hypertension Gastro-esophageal reflux disease without esophagitis documented in this encounter Care Teams Cutting Pressman Relationship Specialty Start Date End Date Jeronimo Norris MD [address] [place] [address] PCP - General Internal Medicine 02/10/25 documented as of this encounter
== END 2025-06-24 08:33 | disposition home or self-care (01) ==
LOC: HO.HOSX 08:32
PROVIDERS: Visit Provider Physician Assistant
DX: S72.141A Displaced intertrochanteric fracture of right femur, initial encounter for closed fracture (principal); X58.XXXA Exposure to other specified factors, initial encounter
CPT/HCPCS: 73552; 99212

== ENCOUNTER 2025-06-24 11:21 | Outpatient (AMB) | payer MEDICARE, SELFPAY ==
--- NOTE | 2025-06-24 11:39 | MHC.OFFVIS ---
Vital Signs 06/24/25 11:50 Height 5 ft Weight 128 lb BMI 25.0 Intake Visit Reasons: OV-right hip IM Nail 02/08/25 NE with xrays Intake Note: Vero is a 84 year old female who presents today for a follow up s/p right hip IM Nail 02/08/25 NE. At the patients last visit she was advised to continue her physical therapy exercises to help with strengthening and continue the use of the roller walker for safe ambulation. She presents today with a cane for ambulation. Patient states she never attended outpatient therapy. Expresses she had PT visits at home and continues to do these exercises herself at home even after completing the home therapy. She has concerns of excruciating pain when she tries to sleep at night and with over use of the legs. Says she tried to go to [employer] yesterday and this was too much. She also says she fell head first into the closet this morning. She is wondering if she can be prescribed anything to take some edge off her pain. Also says she has had right shoulder injection in the past her at [facility] [place] and would like to discuss or continue these here. Last right shoulder inj was on 12/08/23 w/ Dr Morales Allergies naproxen (NAPROXEN) Allergy (Intermediate, Verified 06/24/25 11:50) BLISTERS IN MOUTH Sulfa (Sulfonamide Antibiotics) (SULFA (SULFONAMIDE ANTIBIOTICS)) Allergy (Intermediate, Verified 06/24/25 11:50) BLISTERS ON TONGUE HPI HPI OV-right hip IM Nail 02/08/25 NE with xrays: Details: Ms. Ramírez is an 84-year-old female who presents today for routine follow up s/p right hip IM Nail 02/08/[address] Pardo. At the patients last visit she was advised to continue her physical therapy exercises to help with strengthening and continue the use of the roller walker for safe ambulation. She presents today with a cane for ambulation. Patient states she never attended outpatient therapy and states that she had home p.t. through the [facility] and continues to do these exercises herself at home even after completing the home therapy. Patient states that she was shopping 1 day and after being on her feet for a long period of time she had a significant increase in pain from the right hip to the knee. She had difficulty sleeping that night due to pain. [facility] Medical History (Updated 05/13/25 @ 16:12 by Elicia Aguilar MD) IBS (irritable bowel syndrome) Hyperlipidemia Hypertension Dyspnea on exertion Bronchitis Polymyalgia rheumatica Surgical History History of hip surgery Hx of cholecystectomy Hx of hysterectomy Family History Mother CHF (congestive heart failure) Social History Household Members: Spouse Housing: House Do you presently have visiting nurse or other home services: No Alcohol intake: current Alcohol intake frequency: holidays/special occasions only Patient Tobacco Use Status: Former Tobacco user Tobacco use type: Cigarette Cigarettes Per Day: 15 Years Smoked: 4 e-Cigarette/Vaping Use: Never Used Second Hand Smoke Exposure: No Substance Use Type: Marijuana Advance Directives Date on File: 11/24/23 service: No Current occupational status: retired Review of Systems Const All systems reviewed & are unremarkable except as noted in HPI and below Physical Exam Const General: cooperative, healthy appearing and no acute distress Resp Effort & Inspection: normal respiratory effort and able to speak in complete sentences Extrem Other: Right hip able to perform a straight leg raise. Good internal external rotation with no pain. Slight tenderness to palpation over the distal screw. NVI. Psych Appearance: grossly normal Mental Status: mental status grossly normal Attitude: cooperative Assessment & Plan Assessment & Plan (1) Closed intertrochanteric fracture of right femur: Code(s): S72.141A - Displaced intertrochanteric fracture of right femur, initial encounter for closed fracture Category: Medical Plan Ms. Ramírez is an 84-year-old female who presents today for routine follow up s/p right hip IM Nail 02/08/[address] Pardo. At the patients last visit she was advised to continue her physical therapy exercises to help with strengthening and continue the use of the roller walker for safe ambulation. She presents today with a cane for ambulation. Patient states she never attended outpatient therapy and states that she had home p[facility]t. through the [facility] and continues to do these exercises herself at home even after completing the home therapy. Patient states that she was shopping 1 day and after being on her feet for a long period of time she had a significant increase in pain from the right hip to the knee. She had difficulty sleeping that night due to pain. While the office today, I educated the patient that full recovery after a hip fracture can take up to 1 year or even greater. I did prescribe tramadol 50 mg to be taken p.o. Q 8 hours as needed for severe pain. Overall, I think the patient is doing very well with her recovery course. Recommendation to continue her home exercise program. She will follow up in 8 weeks, sooner if needed. X-rays of the right femur which were obtained while in the office today and were reviewed by me, Sasha Douglas PA-C, revealed intact orthopedic hardware with routine healing. Orders: Orders XR femur RT 2V Today S72.141A - Displaced intertrochanteric fracture of right femur, initial encounter for closed fracture Medications: New tramadol 50 mg PO Q8H PRN 21 tabs 0RF prn pain 30 days Coding Level of Care Code Est Pt Level 3 (96242) Diagnoses Closed intertrochanteric fracture of right femur S72.141A
[2025-06-24 11:50] VITALS: BMI 25.0
== END 2025-06-24 12:09 | disposition home or self-care (01) ==
LOC: HO.HOS 11:21
PROVIDERS: Visit Provider Physician Assistant
DX: S72.141A Displaced intertrochanteric fracture of right femur, initial encounter for closed fracture (principal)
CPT/HCPCS: 99213

== ENCOUNTER → 2025-06-24 11:30 | Outpatient (BNV) | payer MEDICARE, SELFPAY | PROVIDERS: Visit Provider Radiology Diagnostic Radiology | DX: S72.141D Displaced intertrochanteric fracture of right femur, subsequent encounter for closed fracture with routine healing (principal) | CPT/HCPCS: 73552 ==

== ENCOUNTER 2025-07-06 16:05 | Outpatient (AMB) | payer MEDICARE, SELFPAY ==
--- OUTSIDE RECORDS SUMMARY | 2024-08-05 06:45 | XMS_ITS ---
Author Organization [facility] Address [address] [place] [address] Care Team Providers Care Yard Assistant Name Role Phone Ismael Davis MD Primary Care Provider Kaiser Cerna [phone] REASON FOR VISIT Last PCP Visit: 04/26/24, Ingrown nail(s) Medications Medication SIG (Take, Route, Frequency, Duration) Notes Start Date End Date Status Voltaren 1 % as directed Externally Active Night Splint AFO - L1930 as directed Active Problems Problem Type SNOMED Code ICD Code Onset Dates Problem Status W/U Status Risk Notes Problem Plantar fascial fibromatosis (54405129) 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 Encounters Encounter Location Date Provider Diagnosis [facility] [address] [place] [address] 08/05/2024 Kaiser Riddle Tinea unguium B35.1 ; [...] * Vero CONNELLYDOB: [birth year] (84 yo F)Acc No.[id number]:08/05/2024 Progress Note Patient: Vero YOUNGBLOOD Provider: Yudelka Riddle DPM :1940 A ge:83 Y S ex:Female Date:08/05/2024 Address: [address], [facility], [facility] Pcp:Ismael Davis MD Subjective: * Chief Complaints: [...] enies. C ardiovascular: Pacemaker d enies. M BACK TENDER FOURDRINIER d enies. W PW d enies. C [...] DPM Date: Generated for Astrid mello/Jason/Rhett on: 07/06/2025 06:03 PM EDT History and Physical Notes * HPI [...]
--- NOTE | 2025-07-06 16:05 | MHC.PC.OV ---
Vital Signs 07/06/25 16:09 07/06/25 17:45 Height 5 ft Weight 59.874 kg BMI 25.8 BP 140/80 H 128/72 Blood Pressure Location Lt brachial Position Sitting Respiration 17 Pulse 79 Pulse Source Pulse Oximeter Temp 98.7 F Temp Source Temporal Artery Scan Pulse Oximetry (%) 98 Oxygen Delivery Method Room Air Intake Visit Reasons: follow up Market Survey Representative Required: No Accompanied by: Spouse Allergies naproxen (NAPROXEN) Allergy (Intermediate, Verified 07/06/25 16:05) BLISTERS IN MOUTH Sulfa (Sulfonamide Antibiotics) (SULFA (SULFONAMIDE ANTIBIOTICS)) Allergy (Intermediate, Verified 07/06/25 16:05) BLISTERS ON TONGUE Medication List - Last Reconciled 07/06/25 by BRIAN Zuniga acetaminophen 1,000 mg PO BID PRN albuterol sulfate 90 mcg/actuation 2 puffs inhalation Q6H PRN cholecalciferol (vitamin D3) (Vitamin D3) 25 mcg PO DAILY dicyclomine 10 mg PO BID fluticasone propionate 50 mcg/actuation (Allergy Relief (fluticasone)) 1 spray intranasal DAILY PRN folic acid 1 mg PO DAILY hydrochlorothiazide 25 mg PO DAILY levothyroxine 25 mcg PO DAILY@0600 magnesium oxide 400 mg PO DAILY meclizine 12.5 mg PO TID PRN metoprolol tartrate 12.5 mg PO BID omeprazole 20 mg PO DAILY@0630 potassium chloride ER 20 mEq PO DAILY sertraline 25 mg PO BEDTIME simvastatin 20 mg PO DAILY [TLSO [place] TLSO or other comparable orthotic ] tramadol 25 mg PO BID PRN Tobacco use date assessed: 07/06/25 Fall risk assessment: 2 + Falls in past year Last assessed Fall Risk: 07/06/25 Dental Screening Dental Screen Date: 07/06/25 Did you have a dental visit in the last 12 months?: Yes Did you have a dental problem in the last 6 months where you did not have access to dental care?: No Was dental information given to patient?: Patient has dentist HPI HPI Comments History of Present Illness Details 84-year-old female with history of hypertension, coronary artery disease, osteoporosis, hyperlipidemia, and polymyalgia rheumatica presents to the office today accompanied by her for management of chronic conditions and to establish care. Coronary artery disease/hyperlipidemia/hypertension-no longer following with Cardiology. No recent anginal chest pain. Continues on metoprolol, statin. Not taking baby aspirin. She is also using hydrochlorothiazide 25 mg daily for management of blood pressure as well. Polymyalgia rheumatica-previously following with Rheumatology but they moved to a different office and she is no longer able to get there. We did discuss the [facility] van. She is not currently on prednisone but is reporting pain in the shoulder and hip girdles. We can continue monitoring symptoms and primary care and initiate prednisone if indicated. If symptoms remain uncontrolled can refer back to Rheumatology Osteoporosis-last DEXA scan 08/2023. Not on Fosamax. Does take vitamin-D R hip fracture- s/p ORIF 02/08, continues following with ortho. She does have some hip pain ongoing. Has been continuing home exercises recommended by Physical therapy. She has been stable using a cane with ambulation and denies any recent falls. Vertigo-using meclizine with good effect but did have breakthrough episode today. ROS: See HPI EXAM: Constitutional - Awake and Alert, No apparent distress Eyes - PERRLA, EOMI Cardiovascular - S1S2, RRR, No edema Respiratory - Normal lung expansion, Normal respiratory effort, No respiratory distress, CTA bilaterally Gastrointestinal - NT / ND; +BS; No rebound or guarding Extremities - no calf tenderness bilaterally, no swelling Skin - Warm/Dry Neurological - Alert & oriented x3, horizontal nystagmus otherwise CN II-XII in tact Psychological - Appropriate affect PFSH Medical History IBS (irritable bowel syndrome) Hyperlipidemia Hypertension Dyspnea on exertion Bronchitis Polymyalgia rheumatica Surgical History History of hip surgery Hx of cholecystectomy Hx of hysterectomy Family History Mother CHF (congestive heart failure) Social History Household Members: Spouse Housing: House Do you presently have visiting nurse or other home services: No Alcohol intake: current Alcohol intake frequency: holidays/special occasions only Patient Tobacco Use Status: Former Tobacco user Tobacco use type: Cigarette Cigarettes Per Day: 15 Years Smoked: 4 e-Cigarette/Vaping Use: Never Used Second Hand Smoke Exposure: No Substance Use Type: Marijuana Advance Directives Date on File: 11/24/23 service: No Current occupational status: retired Questionnaire Thrive Questionnaire Date Thrive assessed: 03/14/25 AUDIT C Alcohol Use Questionnaire (AUDIT-C) 1. How often do you have a drink containing alcohol?: Never 3. How often do you have six or more drinks on one occasion?: Never Total Score: 0 COLBY-7 AMB Questionnaire COLBY-7 Date COLBY - 7 assessed: 03/14/25 Source: Developed by Drs. Gary Ruggiero, Lynnette Rocha, Jesus Manuel Hamlin and colleagues, with an educational haroon from [employer]. Physical exam (Primary Care) Vital Signs: Last Vital Signs Temp 98.7 F 07/06/25 16:09 Pulse 79 07/06/25 16:09 Resp 17 07/06/25 16:09 BP 140/80 H 07/06/25 16:09 Pulse Ox 98 07/06/25 16:09 Oxygen Delivery Method Room Air 07/06/25 16:09 BMI result Body Mass Index 25.8 Tobacco/Smoking Status: Tobacco use Status Tobacco use date assessed 07/06/25 07/06/25 16:15 Patient Tobacco Use Status Former Tobacco user 07/06/25 16:15 Tobacco use type Cigarette 07/06/25 16:15 e-Cigarette/Vaping Use Never Used 07/06/25 16:15 Thrive Assessment: Date of Thrive Assessment Date Thrive assessed 03/14/25 07/06/25 16:15 Coding Level of Care Code Est Pt Level 4 (33928) Complex EM visit Add On G2211 Diagnoses Polymyalgia rheumatica M35.3 Hypertension I10 Hyperlipidemia E78.5 Vertigo R42 Hypothyroidism E03.9 Closed intertrochanteric fracture of right femur S72.141A Assessment & Plan Assessment & Plan (1) Polymyalgia rheumatica: Comment: some small joint synovitis as well RF/CCP/MARK negative; HCQ started 10/23; eye exam OK 11/24, 09/27, 05/29, 05/30 MTX added 03/27 thru 10/29, remained on hydroxychloroquine Patient stopped hydroxychloroquine due to headaches, ? Blurry vision Code(s): M35.3 - Polymyalgia rheumatica Category: Medical Plan: Stable. Unable to continue following with Rheumatology. Discussed that we can continue monitoring symptoms and primary care and initiate prednisone if indicated. If symptoms remain uncontrolled can refer back to Rheumatology (2) Hypertension: Code(s): I10 - Essential (primary) hypertension Category: Medical Plan: Controlled with blood pressure 130/72. Continue metoprolol 12.5 mg twice daily, hydrochlorothiazide 25 mg daily. Low-sodium diet advised. We will review renal function and electrolyte levels. (3) Hyperlipidemia: Code(s): E78.5 - Hyperlipidemia, unspecified Category: Medical Plan: Lipid panel ordered. Continue simvastatin 20 mg daily. Follow diet low in saturated fats and highly processed foods. (4) Vertigo: Code(s): R42 - Dizziness and giddiness Category: Medical Plan: , likely BPPV. Trial meclizine 12.5 mg as needed for dizziness. (5) Hypothyroidism: Code(s): E03.9 - Hypothyroidism, unspecified Plan: TSH with reflex free T4 ordered. Continue levothyroxine, dose to be adjusted as needed pending results of studies. (6) Closed intertrochanteric fracture of right femur: Code(s): S72.141A - Displaced intertrochanteric fracture of right femur, initial encounter for closed fracture Category: Medical Plan: Pain improving. Continue using the tramadol only as needed. Continue following with Orthopedic surgery. Continue with home exercise and utilize cane when ambulating. Plan Follow-up in the office in 6 months with labs completed several days prior to visit Orders: Orders Complete Blood Count Auto Diff 6 Months BRIAN Zuniga E87.6 - Hypokalemia, I10 - Essential (primary) hypertension, I25.10 - Atherosclerotic heart disease of [place] coronary artery without angina pectoris, I48.91 - Unspecified atrial fibrillation, M35.3 - Polymyalgia rheumatica Liver Panel 6 Months BRIAN Zuniga E87.6 - Hypokalemia, I10 - Essential (primary) hypertension, I25.10 - Atherosclerotic heart disease of [place] coronary artery without angina pectoris, I48.91 - Unspecified atrial fibrillation, M35.3 - Polymyalgia rheumatica TSH reflex Free T4 6 Months BRIAN Zuniga E87.6 - Hypokalemia, I10 - Essential (primary) hypertension, I25.10 - Atherosclerotic heart disease of [place] coronary artery without angina pectoris, I48.91 - Unspecified atrial fibrillation, M35.3 - Polymyalgia rheumatica Basic Metabolic Panel 6 Months BRIAN Zuniga E87.6 - Hypokalemia, I10 - Essential (primary) hypertension, I25.10 - Atherosclerotic heart disease of [place] coronary artery without angina pectoris, I48.91 - Unspecified atrial fibrillation, M35.3 - Polymyalgia rheumatica Lipid Panel 6 Months BRIAN Zuniga E87.6 - Hypokalemia, I10 - Essential (primary) hypertension, I25.10 - Atherosclerotic heart disease of [place] coronary artery without angina pectoris, I48.91 - Unspecified atrial fibrillation, M35.3 - Polymyalgia rheumatica Medications: Changed From tramadol 25 mg (1/2 x 50 mg) PO BID 30 tabs 0RF To tramadol 25 mg PO BID PRN Demetrius Roy MD
[2025-07-06 16:09] VITALS: BP 140/80; PULSE 79; RESP 17; TEMP 37.1; O2SAT 98; BMI 25.8
[2025-07-06 17:45] VITALS: BP 128/72
--- OUTSIDE RECORDS SUMMARY | 2025-07-06 18:03 | XMS_ITS | Encounter Summary ---
Author Organization [facility] Address [address] [place] [phone] Care Team Providers Care Corn Shucker Name Role Phone Jeronimo Norris MD Primary Care Provider [phone] Encounter Details Date Type Department Care Team (Late st Contact Info) Description 02/23/2025 Lab Requisition [facility] - Main Lab [address] [facility] [place] [address] Jeronimo Norris MD [address] [place] [address] Essential (primary) hypertension; Gastro-esophageal reflux [...] mmol/L LAB CHEMISTRY METHOD 02/24/2025 9:17 AM [facility] Potassium 4.1 3.5 - 5.5 mmol/L LAB CHEMISTRY METHOD 02/24/2025 9:17 AM [facility] Chloride 102 96 - 110 mmol/L LAB CHEMISTRY METHOD 02/24/2025 9:17 AM [facility] CO2 29 21 - 32 mmol/L LAB CHEMISTRY METHOD 02/24/2025 9:17 AM [facility] Anion Gap 7 3 - 11 LAB CHEMISTRY METHOD 02/24/2025 9:17 AM [facility] Glucose 84 70 - 100 mg/dL LAB CHEMISTRY METHOD 02/24/2025 9:17 AM [facility] BUN 20 5 - 25 mg/dL LAB CHEMISTRY METHOD 02/24/2025 9:17 AM [facility] Creatinine 0.48(L) 0.50 - 1.10 mg/dL LAB CHEMISTRY METHOD 02/24/2025 9:17 AM [facility] eGFR 95 >=60 mL/min/1. 73m2 LAB CHEMISTRY METHOD 02/24/2025 9:17 AM [facility] Comment:Calculation based on the Chronic Kidney Disease Epidemiology Collaboration (CKD-EPI) equation refit without adjustment for race. BUN/Creatinine Ratio 41.7 LAB CHEMISTRY METHOD 02/24/2025 9:17 AM [facility] Calcium 8.9 8.5 - 10.5 mg/dL LAB CHEMISTRY METHOD 02/24/2025 9:17 AM [facility] Blood Venous blood specimen / Unknown Venipuncture / Unknown 02/24/2025 6:35 AM EDT 02/24/2025 8:22 AM EDT us Jeronimo Norris MD LAB BLOOD ORDERABLES Final Resu lt [facility] [address] [place] [address], * (ABNORMAL) Complete blood count (02/24/2025 6:35 AM EDT) [facility] WBC 7.8 4.8 - 10.8 K/mcL [...] Resu lt [facility] [address] [place] [address], documented in this encounter Visit Diagnoses Diagnosis Essential (primary) hypertension Unspecified essential hypertension Gastro-esophageal reflux disease without esophagitis documented in this encounter Care Teams Corn Shucker Relationship Specialty Start Date End Date Jeronimo Norris MD [address] [place] [address] PCP - General Internal Medicine 02/10/25 documented as of this encounter
--- OUTSIDE RECORDS SUMMARY | 2025-07-06 18:03 | XMS_ITS | Clinical Summary ---
Author Organization [facility] Address [address] [place] [address] Phone Care Team Providers Care Neurology Manager Name Role Phone Unavailable Primary Care Provider [...] It is not the complete legal health record.[facility]
--- OUTSIDE RECORDS SUMMARY | 2025-07-06 18:03 | XMS_ITS | Encounter Summary ---
Author Organization [facility] Address [address] [place] [address] Care Team Providers Care Senior Cyber Security Analyst Name Role Phone Jeronimo Norris MD Primary Care Provider [phone] Encounter Details Date Type Department Care Team (Late st Contact Info) Description 02/16/2025 Lab Requisition [facility] - Main Lab [address] [facility] [place] [address] Jeronimo Norris MD [address] [place] [address] Essential (primary) hypertension; Gastro-esophageal reflux [...] mmol/L LAB CHEMISTRY METHOD 02/17/2025 10:00 AM [facility] Potassium 4.1 3.5 - 5.5 mmol/L LAB CHEMISTRY METHOD 02/17/2025 10:00 AM [facility] Chloride 104 96 - 110 mmol/L LAB CHEMISTRY METHOD 02/17/2025 10:00 AM [facility] CO2 29 21 - 32 mmol/L LAB CHEMISTRY METHOD 02/17/2025 10:00 AM [facility] Anion Gap 6 3 - 11 LAB CHEMISTRY METHOD 02/17/2025 10:00 AM [facility] Glucose 79 70 - 100 mg/dL LAB CHEMISTRY METHOD 02/17/2025 10:00 AM [facility] BUN 19 5 - 25 mg/dL LAB CHEMISTRY METHOD 02/17/2025 10:00 AM [facility] Creatinine 0.41(L) 0.50 - 1.10 mg/dL LAB CHEMISTRY METHOD 02/17/2025 10:00 AM [facility] eGFR 98 >=60 mL/min/1. 73m2 LAB CHEMISTRY METHOD 02/17/2025 10:00 AM [facility] Comment:Calculation based on the Chronic Kidney Disease Epidemiology Collaboration (CKD-EPI) equation refit without adjustment for race. BUN/Creatinine Ratio 46.3 LAB CHEMISTRY METHOD 02/17/2025 10:00 AM [facility] Calcium 8.7 8.5 - 10.5 mg/dL LAB CHEMISTRY METHOD 02/17/2025 10:00 AM [facility] Blood Venous blood specimen / Unknown Venipuncture / Unknown 02/17/2025 6:11 AM EDT 02/17/2025 8:50 AM EDT us Jeronimo Norris MD LAB BLOOD ORDERABLES Final Resu lt [facility] [address] [place] [address], * (ABNORMAL) Complete blood count (02/17/2025 6:11 AM EDT) [facility] WBC 8.3 4.8 - 10.8 K/mcL LAB HEMETOLOGY METHOD 02/17/2025 9:03 AM EDT [facility] RBC 2.90(L) 3.80 - 4.80 M/mcL LAB HEMETOLOGY METHOD 02/17/2025 9:03 AM EDT [facility] Hemoglobin 9.2(L) 11.5 - 16.0 g/dL LAB HEMETOLOGY [facility] Hematocrit 28.0(L) 35.0 - 47.0 % LAB HEMETOLOGY METHOD [facility]17[facility]2025 [facility] MCV 95.6 79.0 - 98.0 FL LAB HEMETOLOGY METHOD [facility]25 [facility] MCH 31.4 27.0 - 32.0 pcg LAB HEMETOLOGY METHOD 02/17/2025 9:03 AM [facility] MCHC 32.9 32.0 - 37.0 g/dL LAB HEMETOLOGY METHOD [facility]25 [facility] RDW 13.6 11.0 - 15.0 % LAB HEMETOLOGY METHOD [facility]25 [facility] Platelets 403(H) 130 - 400 K/mcL LAB HEMETOLOGY METHOD [facility]/17[facility]2025 [facility] MPV 10.4 7.0 - 11.0 FL LAB HEMETOLOGY METHOD 02/17/2025 9:03 AM EDT [facility] NRBC 0.0 <1.0 % LAB HEMETOLOGY METHOD 02/17/2025 9:03 AM EDT [facility] NRBC Absolute 0.00 <0.10 K/mcL LAB HEMETOLOGY METHOD 02/17/2025 9:03 AM EDT [facility] Blood Venous blood specimen / Unknown Venipuncture / Unknown 02/17/2025 6:11 AM EDT 02/17/2025 8:50 AM EDT Jeronimo Norris MD LAB BLOOD ORDERABLES Final Resu lt [facility] [address] [place] [address], documented in this encounter Visit Diagnoses Diagnosis Essential (primary) hypertension Unspecified essential hypertension Gastro-esophageal reflux disease without esophagitis documented in this encounter Care Teams Senior Cyber Security Analyst Relationship Specialty Start Date End Date Jeronimo Norris MD [address] [place] [address] PCP - General Internal Medicine 02/10/25 documented as of this encounter
--- OUTSIDE RECORDS SUMMARY | 2025-07-06 18:03 | XMS_ITS | Clinical Summary ---
Author Organization [address] Address [address] [place] [phone] Phone Care Team Providers Care Can Patcher Name Role Phone Jeronimo Norris MD Primary Care Provider [phone] Surgical History Surgery Date Site/Laterality Comments CHOLECYSTECTOMY age 19 PROCEDURE: HISTORICAL CHOLECYSTECTOMY COLONOSCOPY 03/14 PROCEDURE: IA COLONOSCOPY STOMA DX INCLUDING COLLJ SPEC SPX OTHER SURGICAL HISTORY 01/14 PROCEDURE: MAMMOGRAM TONSILLECTOMY ADENOIDECTOMY, BILATERAL MYRINGOTOMY AND TUBES PROCEDURE: IA TONSILLECTOMY & ADENOIDECTOMY <AGE 14 HYSTERECTOMY 1965 PROCEDURE: HISTORICAL HYSTERECTOMY; COMMENT: SHAYE USO ESOPHAGOGASTRODUODENOSCOPY 2 PROCEDURE: IA ESOPHAGOGASTRODUODENOSCOPY TRANSORAL DIAGNOSTIC; COMMENT: normal on PPI rx. CARPAL TUNNEL RELEASE January, PROCEDURE: IA NEUROPLASTY &/TRANSPOS MEDIAN NRV CARPAL TUNNE; COMMENT: [...] DX:Sciatica Polymyalgia (CMS/HCC V24) 02/18/2008 DX:Gokul ymyalgia ([facility]); COMMENT: Onset fall 2006 - prednisone through [...] LAB CHEMISTRY METHOD 02/24/2025 9:17 AM EDT [facility] Potassium 4.1 3.5 - 5.5 mmol/L LAB CHEMISTRY METHOD 02/24/2025 9:17 AM [facility] Chloride 102 96 - 110 mmol/L LAB CHEMISTRY METHOD 02/24/2025 9:17 AM [facility] CO2 29 21 - 32 mmol/L LAB CHEMISTRY METHOD 02/24/2025 9:17 AM [facility] Anion Gap 7 3 - 11 LAB CHEMISTRY METHOD 02/24/2025 9:17 AM [facility] Glucose 84 70 - 100 mg/dL LAB CHEMISTRY METHOD 02/24/2025 9:17 AM [facility] BUN 20 5 - 25 mg/dL LAB CHEMISTRY METHOD 02/24/2025 9:17 AM [facility] Creatinine 0.48(L) 0.50 - 1.10 mg/dL LAB CHEMISTRY METHOD 02/24/2025 9:17 AM [facility] eGFR 95 >=60 mL/min/1. 73m2 LAB CHEMISTRY METHOD 02/24/2025 9:17 AM [facility] Comment:Calculation based on the Chronic Kidney Disease Epidemiology Collaboration (CKD-EPI) equation refit without adjustment for race. BUN/Creatinine Ratio 41.7 LAB CHEMISTRY METHOD 02/24/2025 9:17 AM [facility] Calcium 8.9 8.5 - 10.5 mg/dL LAB CHEMISTRY METHOD 02/24/2025 9:17 AM [facility] Blood Venous blood specimen / Unknown Venipuncture / Unknown 02/24/2025 6:35 AM EDT 02/24/2025 8:22 AM EDT us Jeronimo Norris MD LAB BLOOD ORDERABLES Final Resu lt [facility] [address] [place] [address], [place] [phone] from Last 3 Months or Most Recently Relevant to Health Maintenance Insurance [employer] Care Teams Can Patcher Relationship Specialty Start Date End Date Jeronimo Norris MD [address] [place] [address] PCP - General Internal Medicine 02/10/25
--- OUTSIDE RECORDS SUMMARY | 2025-07-06 18:03 | XMS_ITS | Patient Health Record ---
Author Organization [facility] Address [address] [place] [address] Care Team Providers Care Charhouse Worker Name Role Phone Ismael Davis MD Primary Care Provider [facility] Unavailable [phone] Allergies Allergen (clinical drug ingredient) Drug/Non Drug [...] Status Risk Notes Problem Acquired hallux valgus (23544476) Hallux valgus (acquired), left foot (M20.12) Active confirmed Problem Acquired hallux valgus (02322800) Hallux valgus (acquired), right foot (M20.11) Active confirmed Problem Plantar fascial fibromatosis (88254000) 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 Problem Acquired hammer toe of right foot ([id number] 5) Other hammer toe(s) (acquired), right foot (M20.41) Active confirmed Problem Acquired hammer toe of left foot ([id number] 3) Other hammer toe(s) (acquired), left foot (M20.42) Active confirmed Encounters Encounter Location Date Provider Diagnosis [facility] [place] [address] [place] [address] 08/03/2024 [facility] Plan Of Treatment Pending [...] Medicare Advantage [address] [place] [address] [phone] [id number] Vero Ramírez Self - patient is the insured Medical (General) History Medical History History ICD Code Arthritis Back,Hip,and Knee pain Depression Headaches/Migraines Kidney disease Measles Mumps Chicken pox Surgical History Surgery Date(Month/Year) hysterectomy gall bladder Hospitalization History Reason Date(Month/Year) [facility]- Bee sting 04/23/24 [facility] Rheumatoid arthritis 11/2023
--- OUTSIDE RECORDS SUMMARY | 2025-07-06 18:03 | XMS_ITS | Encounter Summary ---
Author Organization [facility] Address [address] [place] [phone] Care Team Providers Care Implementation Project Manager Name Role Phone Jeronimo Norris MD Primary Care Provider [phone] Encounter Details Date Type Department Care Team (Late st Contact Info) Description 02/13/2025 Lab Requisition [facility] - Main Lab [address] [facility] [place] [address] Jeronimo Norris MD [address] [place] [address] Essential (primary) hypertension; Gastro-esophageal reflux [...] mmol/L LAB CHEMISTRY METHOD 02/14/2025 9:15 AM [facility] Potassium 4.8 3.5 - 5.5 mmol/L LAB CHEMISTRY METHOD 02/14/2025 9:15 AM [facility] Chloride 107 96 - 110 mmol/L LAB CHEMISTRY METHOD 02/14/2025 9:15 AM [facility] CO2 25 21 - 32 mmol/L LAB CHEMISTRY METHOD 02/14/2025 9:15 AM [facility] Anion Gap 9 3 - 11 LAB CHEMISTRY METHOD 02/14/2025 9:15 AM [facility] Glucose 92 70 - 100 mg/dL LAB CHEMISTRY METHOD 02/14/2025 9:15 AM [facility] BUN 25 5 - 25 mg/dL LAB CHEMISTRY METHOD 02/14/2025 9:15 AM [facility] Creatinine 0.60 0.50 - 1.10 mg/dL LAB CHEMISTRY METHOD 02/14/2025 9:15 AM [facility] eGFR 90 >=60 mL/min/1. 73m2 LAB CHEMISTRY METHOD 02/14/2025 9:15 AM [facility] Comment:Calculation based on the Chronic Kidney Disease Epidemiology Collaboration (CKD-EPI) equation refit without adjustment for race. BUN/Creatinine Ratio 41.7 LAB CHEMISTRY METHOD 02/14/2025 9:15 AM [facility] Calcium 8.8 8.5 - 10.5 mg/dL LAB CHEMISTRY METHOD 02/14/2025 9:15 AM [facility] AST (SGOT) 46(H) 10 - 42 unit/L LAB CHEMISTRY METHOD 02/14/2025 9:15 AM [facility] ALT (SGPT) 23 10 - 60 unit/L LAB CHEMISTRY METHOD 02/14/2025 9:15 AM [facility] Alkaline Phosphatase 70 42 - 121 unit/L LAB CHEMISTRY METHOD 02/14/2025 9:15 AM EDT [facility] Total Protein 5.5(L) 6.0 - 8.0 g/dL LAB CHEMISTRY METHOD 02/14/2025 9:15 AM [facility] Albumin 2.5(L) 3.2 - 5.0 g/dL LAB CHEMISTRY METHOD 02/14/2025 9:15 AM [facility] Total Bilirubin 0.5 0.0 - 1.4 mg/dL LAB CHEMISTRY METHOD 02/14/2025 9:15 AM [facility] Blood Venous blood specimen / Unknown Venipuncture / Unknown 02/14/2025 6:22 AM EDT 02/14/2025 8:24 AM EDT Jeronimo Norris MD LAB BLOOD ORDERABLES Final Resu lt [facility] [address] [place] [address], * (ABNORMAL) Complete blood count (02/14/2025 6:22 AM EDT) WBC 14.2(H) 4.8 - 10.8 K/[facility] LAB HEMETOLOGY METHOD 02/14/2025 8:46 AM [facility] RBC 3.30(L) 3.80 - 4.80 M/[facility] LAB HEMETOLOGY METHOD 02/14/2025 8:46 AM [facility] Hemoglobin 10.0(L) 11.5 - 16.0 g/dL LAB HEMETOLOGY METHOD 02/14/2025 8:46 AM [facility] Hematocrit 31.6(L) 35.0 - 47.0 % LAB HEMETOLOGY METHOD 02/14/2025 8:46 AM [facility] MCV 96.0 79.0 - 98.0 [...] Resu lt [facility] [address] [place] [address], documented in this encounter Visit Diagnoses Diagnosis Essential (primary) hypertension Unspecified essential hypertension Gastro-esophageal reflux disease without esophagitis documented in this encounter Care Teams Implementation Project Manager Relationship Specialty Start Date End Date Jeronimo Norris MD [address] [place] [address] PCP - General Internal Medicine 02/10/25 documented as of this encounter
--- OUTSIDE RECORDS SUMMARY | 2025-07-06 18:03 | XMS_ITS | Encounter Summary ---
Author Organization [facility] Address [address] [place] [address] Care Team Providers Care Plate Shop Helper Name Role Phone Jeronimo Norris MD Primary Care Provider [phone] Encounter Details Date Type Department Care Team (Late st Contact Info) Description 02/10/2025 Lab Requisition [facility] - Main Lab 299 [facility] [place] [address] Jeronimo Norris MD [address] [place] [address] Essential (primary) hypertension; Gastro-esophageal reflux [...] mmol/L LAB CHEMISTRY METHOD 02/10/2025 10:19 AM [facility] Potassium 4.1 3.5 - 5.5 mmol/L LAB CHEMISTRY METHOD 02/10/2025 10:19 AM [facility] Chloride 102 96 - 110 mmol/L LAB CHEMISTRY METHOD 02/10/2025 10:19 AM [facility] CO2 29 21 - 32 mmol/L LAB CHEMISTRY METHOD 02/10/2025 10:19 AM [facility] Anion Gap 7 3 - 11 LAB CHEMISTRY METHOD 02/10/2025 10:19 AM [facility] Glucose 87 70 - 100 mg/dL LAB CHEMISTRY METHOD 02/10/2025 10:19 AM [facility] BUN 25 5 - 25 mg/dL LAB CHEMISTRY METHOD 02/10/2025 10:19 AM [facility] Creatinine 0.78 0.50 - 1.10 mg/dL LAB CHEMISTRY METHOD 02/10/2025 10:19 AM [facility] eGFR 76 >=60 mL/min/1. 73m2 LAB CHEMISTRY METHOD 02/10/2025 10:19 AM [facility] Comment:Calculation based on the Chronic Kidney Disease Epidemiology Collaboration (CKD-EPI) equation refit without adjustment for race. BUN/Creatinine Ratio 32.1 LAB CHEMISTRY METHOD 02/10/2025 10:19 AM [facility] Calcium 8.8 8.5 - 10.5 mg/dL LAB CHEMISTRY METHOD 02/10/2025 10:19 AM [facility] AST (SGOT) 16 10 - 42 unit/L LAB CHEMISTRY METHOD 02/10/2025 10:19 AM [facility] ALT (SGPT) 8(L) 10 - 60 unit/L LAB CHEMISTRY METHOD 02/10/2025 10:19 AM [facility] Alkaline Phosphatase 65 42 - 121 unit/L LAB CHEMISTRY METHOD 02/10/2025 10:19 AM EDT [facility] Total Protein 5.9(L) 6.0 - 8.0 g/dL LAB CHEMISTRY METHOD 02/10/2025 10:19 AM [facility] Albumin 2.7(L) 3.2 - 5.0 g/dL LAB CHEMISTRY METHOD 02/10/2025 10:19 AM [facility] Total Bilirubin 0.5 0.0 - 1.4 mg/dL LAB CHEMISTRY METHOD 02/10/2025 10:19 AM [facility] Blood Venous blood specimen / Unknown Venipuncture / Unknown 02/10/2025 7:49 AM EDT 02/10/2025 9:40 AM EDT Jeronimo Norris MD LAB BLOOD ORDERABLES Final Resu lt [facility] [address] [place] [address], [place] [phone] * (ABNORMAL) Complete blood count (02/10/2025 7:49 AM EDT) WBC 13.5(H) 4.8 - 10.8 K/mcL LAB HEMETOLOGY METHOD 02/10/2025 10:01 AM [facility] RBC 3.40(L) 3.80 - 4.80 M/mcL LAB HEMETOLOGY METHOD 02/10/2025 10:01 AM [facility] Hemoglobin 10.6(L) 11.5 - 16.0 g/dL LAB HEMETOLOGY METHOD 02/10/2025 10:01 AM [facility] Hematocrit 32.6(L) 35.0 - 47.0 % LAB HEMETOLOGY METHOD 02/10/2025 10:01 AM [facility] MCV 96.7 79.0 - 98.0 FL LAB HEMETOLOGY METHOD 02/10/2025 10:01 AM EDT [facility] MCH 31.5 27.0 - 32.0 pcg LAB HEMETOLOGY METHOD 02/10/2025 10:01 AM [facility] MCHC 32.5 32.0 - 37.0 g/dL LAB HEMETOLOGY METHOD 02/10/2025 10:01 AM EDT [facility] RDW 12.9 11.0 - 15.0 % LAB HEMETOLOGY METHOD 02/10/2025 10:01 AM T [facility] Platelets 254 130 - 400 K/mcL LAB HEMETOLOGY METHOD 02/10/2025 10:01 AM [facility] MPV 11.2(H) 7.0 - 11.0 FL LAB HEMETOLOGY METHOD [facility] NRBC 0.0 <1.0 % LAB HEMETOLOGY METHOD 02/10/2025 10:01 AM [facility] NRBC Absolute 0.00 <0.10 K/mcL LAB HEMETOLOGY METHOD 02/10/2025 10:01 AM [facility] Blood Venous blood specimen / Unknown Venipuncture / Unknown 02/10/2025 7:49 AM EDT 02/10/2025 9:40 AM EDT us Jeronimo Norris MD LAB BLOOD ORDERABLES Final Resu lt [facility] [address] [place] [address], documented in this encounter Visit Diagnoses Diagnosis Essential (primary) hypertension Unspecified essential hypertension Gastro-esophageal reflux disease without esophagitis documented in this encounter Care Teams Plate Shop Helper Relationship Specialty Start Date End Date Jeronimo Norris MD [address] [place] [address] PCP - General Internal Medicine 02/10/25 documented as of this encounter
--- OUTSIDE RECORDS SUMMARY | 2025-07-06 18:03 | XMS_ITS | Encounter Summary ---
Author Organization [facility] Address [address] [place] [address] Care Team Providers Care Rn Acute Name Role Phone Jeronimo Norris MD Primary Care Provider [phone] Encounter Details Date Type Department Care Team (Late st Contact Info) Description 02/20/2025 Lab Requisition [facility] - Main Lab [address] [facility] [place] [address] Jeronimo Norris MD [address] [place] [address] Essential (primary) hypertension; Gastro-esophageal reflux [...] mmol/L LAB CHEMISTRY METHOD 02/21/2025 12:55 PM [facility] Potassium 4.1 3.5 - 5.5 mmol/L LAB CHEMISTRY METHOD 02/21/2025 12:55 PM [facility] Chloride 102 96 - 110 mmol/L LAB CHEMISTRY METHOD 02/21/2025 12:55 PM [facility] CO2 27 21 - 32 mmol/L LAB CHEMISTRY METHOD 02/21/2025 12:55 PM [facility] Anion Gap 10 3 - 11 LAB CHEMISTRY METHOD 02/21/2025 12:55 PM [facility] Glucose 78 70 - 100 mg/dL LAB CHEMISTRY METHOD 02/21/2025 12:55 PM [facility] BUN 20 5 - 25 mg/dL LAB CHEMISTRY METHOD 02/21/2025 12:55 PM [facility] Creatinine 0.56 0.50 - 1.10 mg/dL LAB CHEMISTRY METHOD 02/21/2025 12:55 PM [facility] eGFR 91 >=60 mL/min/1. 73m2 LAB CHEMISTRY METHOD 02/21/2025 12:55 PM [facility] Comment:Calculation based on the Chronic Kidney Disease Epidemiology Collaboration (CKD-EPI) equation refit without adjustment for race. BUN/Creatinine Ratio 35.7 LAB CHEMISTRY METHOD 02/21/2025 12:55 PM [facility] Calcium 8.8 8.5 - 10.5 mg/dL LAB CHEMISTRY METHOD 02/21/2025 12:55 PM [facility] AST (SGOT) 15 10 - 42 unit/L LAB CHEMISTRY METHOD 02/21/2025 12:55 PM [facility] ALT (SGPT) 14 10 - 60 unit/L LAB CHEMISTRY METHOD 02/21/2025 12:55 PM [facility] Alkaline Phosphatase 79 42 - 121 unit/L LAB CHEMISTRY METHOD 02/21/2025 12:55 PM EDT [facility] Total Protein 5.7(L) 6.0 - 8.0 g/dL LAB CHEMISTRY METHOD 02/21/2025 12:55 PM EDT [facility] Albumin 2.6(L) 3.2 - 5.0 g/dL LAB CHEMISTRY METHOD 02/21/2025 12:55 PM EDT [facility] Total Bilirubin 0.3 0.0 - 1.4 mg/dL LAB CHEMISTRY METHOD 02/21/2025 12:55 PM EDT [facility] Blood Venous blood specimen / Unknown 02/21/2025 5:59 AM EDT 02/21/2025 11:33 AM EDT us Jeronimo Norris MD LAB BLOOD ORDERABLES Final Resu lt [facility] [address] [place] [address], [place] [phone] * (ABNORMAL) Complete blood count (02/21/2025 5:59 AM EDT) WBC 9.2 4.8 - 10.8 K/mcL LAB HEMETOLOGY METHOD 02/21/2025 1:48 PM EDT [facility] RBC 3.10(L) 3.80 - 4.80 M/mcL LAB HEMETOLOGY METHOD 02/21/2025 1:48 PM EDT [facility] Hemoglobin 9.6(L) 11.5 - 16.0 g/dL LAB HEMETOLOGY METHOD 02/21/2025 1:48 PM EDT [facility] Hematocrit 31.1(L) 35.0 - 47.0 % LAB HEMETOLOGY METHOD 02/21/2025 1:48 PM EDT [facility] MCV 100.0(H) 79.0 - 98.0 FL LAB HEMETOLOGY METHOD 02/21/2025 1:48 PM EDT [facility] MCH 30.9 27.0 - 32.0 pcg LAB HEMETOLOGY METHOD 02/21/2025 1:48 PM EDT [facility] MCHC 30.9(L) 32.0 - 37.0 g/dL LAB HEMETOLOGY METHOD 02/21/2025 1:48 PM EDT [facility] RDW 14.4 11.0 - 15.0 % LAB HEMETOLOGY METHOD 02/21/2025 1:48 PM EDT [facility] Platelets 563(H) 130 - 400 K/mcL LAB HEMETOLOGY METHOD 02/21/2025 1:48 PM EDT [facility] MPV 9.9 7.0 - 11.0 FL LAB HEMETOLOGY METHOD 02/21/2025 1:48 PM EDT [facility] NRBC 0.0 <1.0 % LAB HEMETOLOGY METHOD 02/21/2025 1:48 PM EDT [facility] NRBC Absolute 0.00 <0.10 K/mcL LAB HEMETOLOGY METHOD 02/21/2025 1:48 PM EDT [facility] Blood Venous blood specimen / Unknown 02/21/2025 5:59 AM EDT 02/21/2025 11:33 AM EDT us Jeronimo Norris MD LAB BLOOD ORDERABLES Final Resu lt [facility] [address] [place] [address], documented in this encounter Visit Diagnoses Diagnosis Essential (primary) hypertension Unspecified essential hypertension Gastro-esophageal reflux disease without esophagitis documented in this encounter Care Teams Rn Acute Relationship Specialty Start Date End Date Jeronimo Norris MD [address] [place] [address] PCP - General Internal Medicine 02/10/25 documented as of this encounter
== END 2025-07-06 16:41 | disposition home or self-care (01) ==
LOC: HO.HMCHD 16:05
PROVIDERS: PCP Physician Assistant; Visit Provider Physician Assistant
DX: M35.3 Polymyalgia rheumatica (principal); I10 Essential (primary) hypertension; E78.5 Hyperlipidemia, unspecified; R42 Dizziness and giddiness; E03.9 Hypothyroidism, unspecified; S72.141A Displaced intertrochanteric fracture of right femur, initial encounter for closed fracture

== ENCOUNTER → 2025-07-06 16:05 | Outpatient (BNVA) | payer MEDICARE, SELFPAY | PROVIDERS: PCP Physician Assistant; Visit Provider Physician Assistant | DX: M35.3 Polymyalgia rheumatica (principal); I10 Essential (primary) hypertension; E78.5 Hyperlipidemia, unspecified; R42 Dizziness and giddiness; E03.9 Hypothyroidism, unspecified; S72.141D Displaced intertrochanteric fracture of right femur, subsequent encounter for closed fracture with routine healing; I25.10 Atherosclerotic heart disease of native coronary artery without angina pectoris; M81.0 Age-related osteoporosis without current pathological fracture; Z79.899 Other long term (current) drug therapy | CPT/HCPCS: 99212 ==

== ENCOUNTER 2025-08-23 13:18 | Outpatient (REF) | payer MEDICARE, SELFPAY ==
--- OUTSIDE RECORDS SUMMARY | 2024-08-05 05:45 | XMS_ITS ---
Author Organization [facility] Address [address] [place] [address] Care Team Providers Care Checking Clerk Name Role Phone Ismael Davis MD Primary Care Provider Unavaila Kaiser Flores Unavailable [phone] REASON FOR VISIT Last PCP Visit: 04/26/24, Ingrown nail(s) Medications Medication SIG (Take, Route, Frequency, Duration) Notes Start Date End Date Status Voltaren 1 % as directed Externally Active Night Splint AFO - L1930 as directed Active Problems Problem Type SNOMED Code ICD Code Onset Dates Problem Status W/U Status Risk Notes Problem Plantar fascial fibromatosis (68571313) 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 Encounters Encounter Location Date Provider Diagnosis [facility] [address] [place] [address] 08/05/2024 Kaiser Johnson Tinea unguium B35.1 ; [...] * Vero CONNELLYDOB: [birth year] (85 yo F)Acc No.[id number]:08/05/2024 Progress Note Patient: Vero YOUNGBLOOD Provider: Yudelka Riddle DPM :1940 A ge:83 Y S ex:Female Date:08/05/2024 Address: [address], [facility], [place] Pcp:Ismael Davis MD Subjective: * Chief Complaints: [...] enies. C ardiovascular: Pacemaker d enies. M PRICE ECONOMIST d enies. W PW d enies. C [...] DPM Date: Generated for Astrid Teran/Rhett on: 10/25/2024 04:49 PM EST History and Physical Notes * [...]
--- NOTE | ~2025-08-23 | XR_ITS ---
EXAMINATION: XR FEMUR, RIGHT CLINICAL INFORMATION: S72.141A - Displaced intertrochanteric fracture of right femur, initial ... COMPARISON: Previous x-ray most recent June 2025 TECHNIQUE: AP and lateral views of the right femur were obtained. FINDINGS: ORIF of right femoral intratrochanteric fracture with intramedullary mark, proximal compression/lag screw and distal cortical screw. Orthopedic hardware appears unchanged. Head of the distal cortical screw 1 cm the femoral cortex. Fracture lines still seen. Arthritis at the right hip joint. Atherosclerotic disease. XR/XR femur RT 2V IMPRESSION: ORIF of right femoral intertrochanteric fracture. Fracture lines still seen. Electronically signed by: Hui Nassar MD 08/23/2025 03:18 PM [facility]
--- OUTSIDE RECORDS SUMMARY | 2025-08-25 16:49 | XMS_ITS | Encounter Summary ---
Author Organization [facility] Address [address] [place] [phone] Care Team Providers Care Binder Cutter Name Role Phone Jeronimo Norris MD Primary Care Provider [phone] Encounter Details Date Type Department Care Team (Late st Contact Info) Description 02/16/2025 Lab Requisition [facility] - Main Lab 299 [facility] [place] [address] Jeronimo Norris MD [address] [place] [address] Essential (primary) hypertension; Gastro-esophageal reflux [...] mmol/L LAB CHEMISTRY METHOD 02/17/2025 10:00 AM [facility] Potassium 4.1 3.5 - 5.5 mmol/L LAB CHEMISTRY METHOD 02/17/2025 10:00 AM [facility] Chloride 104 96 - 110 mmol/L LAB CHEMISTRY METHOD 02/17/2025 10:00 AM [facility] CO2 29 21 - 32 mmol/L LAB CHEMISTRY METHOD 02/17/2025 10:00 AM [facility] Anion Gap 6 3 - 11 LAB CHEMISTRY METHOD 02/17/2025 10:00 AM [facility] Glucose 79 70 - 100 mg/dL LAB CHEMISTRY METHOD 02/17/2025 10:00 AM [facility] BUN 19 5 - 25 mg/dL LAB CHEMISTRY METHOD 02/17/2025 10:00 AM [facility] Creatinine 0.41(L) 0.50 - 1.10 mg/dL LAB CHEMISTRY METHOD 02/17/2025 10:00 AM [facility] eGFR 98 >=60 mL/min/1. 73m2 LAB CHEMISTRY METHOD 02/17/2025 10:00 AM [facility] Comment:Calculation based on the Chronic Kidney Disease Epidemiology Collaboration (CKD-EPI) equation refit without adjustment for race. BUN/Creatinine Ratio 46.3 LAB CHEMISTRY METHOD 02/17/2025 10:00 AM [facility] Calcium 8.7 8.5 - 10.5 mg/dL LAB CHEMISTRY METHOD 02/17/2025 10:00 AM [facility] Blood Venous blood specimen / Unknown Venipuncture / Unknown 02/17/2025 6:11 AM EDT 02/17/2025 8:50 AM EDT us Jeronimo Norris MD LAB BLOOD ORDERABLES Final Resu lt [facility] [address] [place] [address], * (ABNORMAL) Complete blood count (02/17/2025 6:11 AM EDT) [facility] WBC 8.3 4.8 - 10.8 K/mcL LAB HEMETOLOGY METHOD 02/17/2025 9:03 AM EDT [facility] RBC 2.90(L) 3.80 - 4.80 M/mcL LAB HEMETOLOGY METHOD 02/17/2025 9:03 AM EDT [facility] Hemoglobin 9.2(L) 11.5 - 16.0 g/dL LAB HEMETOLOGY [facility] Hematocrit 28.0(L) 35.0 - 47.0 % LAB HEMETOLOGY METHOD [facility] MCV 95.6 79.0 - 98.0 FL LAB HEMETOLOGY METHOD [facility] MCH 31.4 27.0 - 32.0 pcg LAB HEMETOLOGY METHOD 02/17/2025 9:03 AM [facility] MCHC 32.9 32.0 - 37.0 g/dL LAB HEMETOLOGY METHOD [facility] RDW 13.6 11.0 - 15.0 % LAB HEMETOLOGY METHOD 02/17[facility]2025 [facility] Platelets 403(H) 130 - 400 K/mcL LAB HEMETOLOGY METHOD 02/17[facility]2025 [facility] MPV 10.4 7.0 - 11.0 FL LAB HEMETOLOGY METHOD 02/17/2025 9:03 AM EDT [facility] NRBC 0.0 <1.0 % LAB HEMETOLOGY METHOD 02/17/2025 9:03 AM EDT [facility] NRBC Absolute 0.00 <0.10 K/mcL LAB HEMETOLOGY METHOD 02/17/2025 9:03 AM EDT [facility] LAB Blood Venous blood specimen / Unknown Venipuncture / Unknown 02/17/2025 6:11 AM EDT 02/17/2025 8:50 AM EDT Jeronimo Norris MD LAB BLOOD ORDERABLES Final Resu lt [facility] LAB [address] [place] [address], documented in this encounter Visit Diagnoses Diagnosis Essential (primary) hypertension Unspecified essential hypertension Gastro-esophageal reflux disease without esophagitis documented in this encounter Care Teams Binder Cutter Relationship Specialty Start Date End Date Jeronimo Norris MD [address] [place] [address] PCP - General Internal Medicine 02/10/25 documented as of this encounter
--- OUTSIDE RECORDS SUMMARY | 2025-08-25 16:49 | XMS_ITS | Encounter Summary ---
Author Organization [facility] Address [address] [place] [address] Care Team Providers Care Paper Stripper Name Role Phone Jeronimo Norris MD Primary Care Provider [phone] Encounter Details Date Type Department Care Team (Late st Contact Info) Description 02/13/2025 Lab Requisition [facility] - Main Lab 299 [facility] [place] [address] Jeronimo Norris MD [address] [place] [address] Essential (primary) hypertension; Gastro-esophageal reflux [...] mmol/L LAB CHEMISTRY METHOD 02/14/2025 9:15 AM [facility] Potassium 4.8 3.5 - 5.5 mmol/L LAB CHEMISTRY METHOD 02/14/2025 9:15 AM [facility] Chloride 107 96 - 110 mmol/L LAB CHEMISTRY METHOD 02/14/2025 9:15 AM [facility] CO2 25 21 - 32 mmol/L LAB CHEMISTRY METHOD 02/14/2025 9:15 AM [facility] LAB Anion Gap 9 3 - 11 LAB CHEMISTRY METHOD 02/14/2025 9:15 AM [facility] Glucose 92 70 - 100 mg/dL LAB CHEMISTRY METHOD 02/14/2025 9:15 AM [facility] BUN 25 5 - 25 mg/dL LAB CHEMISTRY METHOD 02/14/2025 9:15 AM [facility] Creatinine 0.60 0.50 - 1.10 mg/dL LAB CHEMISTRY METHOD 02/14/2025 9:15 AM [facility] LAB eGFR 90 >=60 mL/min/1. 73m2 LAB CHEMISTRY METHOD 02/14/2025 9:15 AM [facility] Comment:Calculation based on the Chronic Kidney Disease Epidemiology Collaboration (CKD-EPI) equation refit without adjustment for race. BUN/Creatinine Ratio 41.7 LAB CHEMISTRY METHOD 02/14/2025 9:15 AM [facility] Calcium 8.8 8.5 - 10.5 mg/dL LAB CHEMISTRY METHOD 02/14/2025 9:15 AM [facility] LAB AST (SGOT) 46(H) 10 - 42 unit/L LAB CHEMISTRY METHOD 02/14/2025 9:15 AM [facility] ALT (SGPT) 23 10 - 60 unit/L LAB CHEMISTRY METHOD 02/14/2025 9:15 AM [facility] Alkaline Phosphatase 70 42 - 121 unit/L LAB CHEMISTRY METHOD 02/14/2025 9:15 AM EDT [facility] Total Protein 5.5(L) 6.0 - 8.0 g/dL LAB CHEMISTRY METHOD 02/14/2025 9:15 AM [facility] Albumin 2.5(L) 3.2 - 5.0 g/dL LAB CHEMISTRY METHOD 02/14/2025 9:15 AM [facility] Total Bilirubin 0.5 0.0 - 1.4 mg/dL LAB CHEMISTRY METHOD 02/14/2025 9:15 AM [facility] Blood Venous blood specimen / Unknown Venipuncture / Unknown 02/14/2025 6:22 AM EDT 02/14/2025 8:24 AM EDT Jeronimo Norris MD LAB BLOOD ORDERABLES Final Resu lt [facility] [address] [place] [address], * (ABNORMAL) Complete blood count (02/14/2025 6:22 AM EDT) WBC 14.2(H) 4.8 - 10.8 K/[facility] LAB HEMETOLOGY METHOD 02/14/2025 8:46 AM [facility] RBC 3.30(L) 3.80 - 4.80 M/[facility] LAB HEMETOLOGY METHOD 02/14/2025 8:46 AM [facility] Hemoglobin 10.0(L) 11.5 - 16.0 g/dL LAB HEMETOLOGY METHOD 02/14/2025 8:46 AM [facility] Hematocrit 31.6(L) 35.0 - 47.0 % LAB HEMETOLOGY METHOD 02/14/2025 8:46 AM [facility] MCV 96.0 79.0 - 98.0 FL LAB HEMETOLOGY METHOD 02/14/2025 8:46 AM EDT [facility] MCH 30.4 27.0 - 32.0 pcg LAB HEMETOLOGY METHOD 02/14/2025 8:46 AM EDT [facility] MCHC 31.6(L) 32.0 - 37.0 g/dL LAB HEMETOLOGY METHOD 02/14/2025 8:46 AM EDT [facility] RDW 13.1 11.0 - 15.0 % LAB HEMETOLOGY METHOD 02/14/2025 8:46 AM EDT [facility] Platelets 321 130 - 400 K/mcL LAB HEMETOLOGY METHOD 02/14/2025 8:46 AM EDT [facility] MPV 10.6 7.0 - 11.0 FL LAB HEMETOLOGY METHOD 02/14/2025 8:46 AM EDT [facility] NRBC 0.0 <1.0 % LAB HEMETOLOGY METHOD 02/14/2025 8:46 AM T [facility] NRBC Absolute 0.00 <0.10 K/mcL LAB HEMETOLOGY METHOD 02/14/2025 8:46 AM T [facility] Blood Venous blood specimen / Unknown Venipuncture / Unknown 02/14/2025 6:22 AM EDT 02/14/2025 8:34 AM EDT us Jeronimo Norris MD LAB BLOOD ORDERABLES Final Resu lt [facility] [address] [place] [address], documented in this encounter Visit Diagnoses Diagnosis Essential (primary) hypertension Unspecified essential hypertension Gastro-esophageal reflux disease without esophagitis documented in this encounter Care Teams Paper Stripper Relationship Specialty Start Date End Date Jeronimo Norris MD [address] [place] [address] PCP - General Internal Medicine 02/10/25 documented as of this encounter
--- OUTSIDE RECORDS SUMMARY | 2025-08-25 16:49 | XMS_ITS | Clinical Summary ---
Author Organization [address] Address [address] [place] [address] Phone Care Team Providers Care Frame Tender Name Role Phone Jeronimo Norris MD Primary Care Provider [phone] Surgical History Surgery Date Site/Laterality Comments CHOLECYSTECTOMY age 19 PROCEDURE: HISTORICAL CHOLECYSTECTOMY COLONOSCOPY 03/14 PROCEDURE: IN COLONOSCOPY STOMA DX INCLUDING COLLJ SPEC SPX OTHER SURGICAL HISTORY 01/14 PROCEDURE: MAMMOGRAM TONSILLECTOMY ADENOIDECTOMY, BILATERAL MYRINGOTOMY AND TUBES PROCEDURE: IN TONSILLECTOMY & ADENOIDECTOMY <AGE 14 HYSTERECTOMY 1965 PROCEDURE: HISTORICAL HYSTERECTOMY; COMMENT: SHAYE USO ESOPHAGOGASTRODUODENOSCOPY 2 PROCEDURE: IN ESOPHAGOGASTRODUODENOSCOPY TRANSORAL DIAGNOSTIC; COMMENT: normal on PPI rx. CARPAL TUNNEL RELEASE January, PROCEDURE: IN NEUROPLASTY &/TRANSPOS MEDIAN NRV CARPAL TUNNE; COMMENT: [...] (CMS/HCC V24) 02/18/2008 DX:Gokul ymyalgia ([facility]); COMMENT: Onset fall 2006 - prednisone through [...] LAB CHEMISTRY METHOD 02/24/2025 9:17 AM EDT [facility] Potassium 4.1 3.5 - 5.5 mmol/L LAB CHEMISTRY METHOD 02/24/2025 9:17 AM [facility] Chloride 102 96 - 110 mmol/L LAB CHEMISTRY METHOD 02/24/2025 9:17 AM [facility] CO2 29 21 - 32 mmol/L LAB CHEMISTRY METHOD 02/24/2025 9:17 AM [facility] Anion Gap 7 3 - 11 LAB CHEMISTRY METHOD 02/24/2025 9:17 AM [facility] Glucose 84 70 - 100 mg/dL LAB CHEMISTRY METHOD 02/24/2025 9:17 AM [facility] BUN 20 5 - 25 mg/dL LAB CHEMISTRY METHOD 02/24/2025 9:17 AM [facility] Creatinine 0.48(L) 0.50 - 1.10 mg/dL LAB CHEMISTRY METHOD 02/24/2025 9:17 AM [facility] LAB eGFR 95 >=60 mL/min/1. 73m2 LAB CHEMISTRY METHOD 02/24/2025 9:17 AM [facility] Comment:Calculation based on the Chronic Kidney Disease Epidemiology Collaboration (CKD-EPI) equation refit without adjustment for race. BUN/Creatinine Ratio 41.7 LAB CHEMISTRY METHOD 02/24/2025 9:17 AM [facility] Calcium 8.9 8.5 - 10.5 mg/dL LAB CHEMISTRY METHOD 02/24/2025 9:17 AM [facility] Blood Venous blood specimen / Unknown Venipuncture / Unknown 02/24/2025 6:35 AM EDT 02/24/2025 8:22 AM EDT us Jeronimo Norris MD LAB BLOOD ORDERABLES Final Resu lt [facility] [address] [place] [address], [place] [phone] from Last 3 Months or Most Recently Relevant to Health Maintenance Insurance [employer] Care Teams Frame Tender Relationship Specialty Start Date End Date Jeronimo Norris MD [address] [place] [address] PCP - General Internal Medicine 02/10/25
--- OUTSIDE RECORDS SUMMARY | 2025-08-25 16:49 | XMS_ITS | Clinical Summary ---
Author Organization [facility] Address [address] [place] [address] Phone Care Team Providers Care Director Telecommunications Name Role Phone Unavailable Primary Care Provider [...] It is not the complete legal health record.[facility]
--- OUTSIDE RECORDS SUMMARY | 2025-08-25 16:49 | XMS_ITS | Encounter Summary ---
Author Organization [facility] Address [address] [place] [phone] Care Team Providers Care Talent Development Consultant Name Role Phone Jeronimo Norris MD Primary Care Provider [phone] Encounter Details Date Type Department Care Team (Late st Contact Info) Description 02/23/2025 Lab Requisition [facility] - Main Lab 299 [facility] [place] [address] Jeronimo Norris MD [address] [place] [address] Essential (primary) hypertension; Gastro-esophageal reflux [...] mmol/L LAB CHEMISTRY METHOD 02/24/2025 9:17 AM [facility] Potassium 4.1 3.5 - 5.5 mmol/L LAB CHEMISTRY METHOD 02/24/2025 9:17 AM [facility] Chloride 102 96 - 110 mmol/L LAB CHEMISTRY METHOD 02/24/2025 9:17 AM [facility] CO2 29 21 - 32 mmol/L LAB CHEMISTRY METHOD 02/24/2025 9:17 AM [facility] Anion Gap 7 3 - 11 LAB CHEMISTRY METHOD 02/24/2025 9:17 AM [facility] Glucose 84 70 - 100 mg/dL LAB CHEMISTRY METHOD 02/24/2025 9:17 AM [facility] BUN 20 5 - 25 mg/dL LAB CHEMISTRY METHOD 02/24/2025 9:17 AM [facility] Creatinine 0.48(L) 0.50 - 1.10 mg/dL LAB CHEMISTRY METHOD 02/24/2025 9:17 AM [facility] eGFR 95 >=60 mL/min/1. 73m2 LAB CHEMISTRY METHOD 02/24/2025 9:17 AM [facility] LAB Comment:Calculation based on the Chronic Kidney Disease Epidemiology Collaboration (CKD-EPI) equation refit without adjustment for race. BUN/Creatinine Ratio 41.7 LAB CHEMISTRY METHOD 02/24/2025 9:17 AM [facility] Calcium 8.9 8.5 - 10.5 mg/dL LAB CHEMISTRY METHOD 02/24/2025 9:17 AM [facility] Blood Venous blood specimen / Unknown Venipuncture / Unknown 02/24/2025 6:35 AM EDT 02/24/2025 8:22 AM EDT us Jeronimo Norris MD LAB BLOOD ORDERABLES Final Resu lt [facility] [address] [place] [address], * (ABNORMAL) Complete blood count (02/24/2025 6:35 AM EDT) [facility] WBC 7.8 4.8 - 10.8 K/mcL LAB HEMETOLOGY METHOD 02/24/2025 8:52 AM EDT [facility] RBC 3.10(L) 3.80 - 4.80 M/mcL LAB HEMETOLOGY METHOD 02/24/2025 8:52 AM EDT [facility] Hemoglobin 9.6(L) 11.5 - 16.0 g/dL LAB HEMETOLOGY METHOD 02/24/2025 8:52 AM EDT [facility] Hematocrit 29.9(L) 35.0 - 47.0 % LAB HEMETOLOGY METHOD 02/24/2025 8:52 AM EDT [facility] MCV 97.1 79.0 - 98.0 FL LAB HEMETOLOGY METHOD 02/24/2025 8:52 AM EDT [facility] MCH 31.2 27.0 - 32.0 pcg LAB HEMETOLOGY METHOD 02/24/2025 8:52 AM EDT [facility] MCHC 32.1 32.0 - 37.0 g/dL LAB HEMETOLOGY METHOD 02/24/2025 8:52 AM EDT [facility] RDW 14.3 11.0 - 15.0 % LAB HEMETOLOGY METHOD 02/24/2025 8:52 AM EDT [facility] Platelets 537(H) 130 - 400 K/mcL LAB HEMETOLOGY METHOD 02/24/2025 8:52 AM EDT [facility] MPV 9.9 7.0 - 11.0 FL LAB HEMETOLOGY METHOD 02/24/2025 8:52 AM EDT [facility] NRBC 0.0 <1.0 % LAB HEMETOLOGY METHOD 02/24/2025 8:52 AM EDT [facility] NRBC Absolute 0.00 <0.10 K/mcL LAB HEMETOLOGY METHOD 02/24/2025 8:52 AM EDT [facility] Blood Venous blood specimen / Unknown Venipuncture / Unknown 02/24/2025 6:35 AM EDT 02/24/2025 8:22 AM EDT Jeronimo Norris MD LAB BLOOD ORDERABLES Final Resu lt [facility] [address] [place] [address], documented in this encounter Visit Diagnoses Diagnosis Essential (primary) hypertension Unspecified essential hypertension Gastro-esophageal reflux disease without esophagitis documented in this encounter Care Teams Talent Development Consultant Relationship Specialty Start Date End Date Jeronimo Norris MD [address] [place] [address] PCP - General Internal Medicine 02/10/25 documented as of this encounter
--- OUTSIDE RECORDS SUMMARY | 2025-08-25 16:50 | XMS_ITS | Encounter Summary ---
Author Organization [facility] Address [address] [place] [phone] Care Team Providers Care Assembler Cards And Announcements Name Role Phone Jeronimo Norris MD Primary Care Provider [phone] Encounter Details Date Type Department Care Team (Late st Contact Info) Description 02/20/2025 Lab Requisition [facility] - Main Lab 299 [facility] [place] [address] Jeronimo Norris MD [address] [place] [address] Essential (primary) hypertension; Gastro-esophageal reflux [...] mmol/L LAB CHEMISTRY METHOD 02/21/2025 12:55 PM [facility] Potassium 4.1 3.5 - 5.5 mmol/L LAB CHEMISTRY METHOD 02/21/2025 12:55 PM [facility] Chloride 102 96 - 110 mmol/L LAB CHEMISTRY METHOD 02/21/2025 12:55 PM [facility] CO2 27 21 - 32 mmol/L LAB CHEMISTRY METHOD 02/21/2025 12:55 PM [facility] Anion Gap 10 3 - 11 LAB CHEMISTRY METHOD 02/21/2025 12:55 PM [facility] Glucose 78 70 - 100 mg/dL LAB CHEMISTRY METHOD 02/21/2025 12:55 PM [facility] BUN 20 5 - 25 mg/dL LAB CHEMISTRY METHOD 02/21/2025 12:55 PM [facility] Creatinine 0.56 0.50 - 1.10 mg/dL LAB CHEMISTRY METHOD 02/21/2025 12:55 PM [facility] eGFR 91 >=60 mL/min/1. 73m2 LAB CHEMISTRY METHOD 02/21/2025 12:55 PM [facility] Comment:Calculation based on the Chronic Kidney Disease Epidemiology Collaboration (CKD-EPI) equation refit without adjustment for race. BUN/Creatinine Ratio 35.7 LAB CHEMISTRY METHOD 02/21/2025 12:55 PM [facility] Calcium 8.8 8.5 - 10.5 mg/dL LAB CHEMISTRY METHOD 02/21/2025 12:55 PM [facility] AST (SGOT) 15 10 - 42 unit/L LAB CHEMISTRY METHOD 02/21/2025 12:55 PM [facility] ALT (SGPT) 14 10 - 60 unit/L LAB CHEMISTRY METHOD 02/21/2025 12:55 PM [facility] Alkaline Phosphatase 79 42 - 121 unit/L LAB CHEMISTRY METHOD 02/21/2025 12:55 PM EDT [facility] Total Protein 5.7(L) 6.0 - 8.0 g/dL LAB CHEMISTRY METHOD 02/21/2025 12:55 PM EDT [facility] Albumin 2.6(L) 3.2 - 5.0 g/dL LAB CHEMISTRY METHOD 02/21/2025 12:55 PM EDT [facility] Total Bilirubin 0.3 0.0 - 1.4 mg/dL LAB CHEMISTRY METHOD 02/21/2025 12:55 PM EDT [facility] Blood Venous blood specimen / Unknown 02/21/2025 5:59 AM EDT 02/21/2025 11:33 AM EDT us Jeronimo Norris MD LAB BLOOD ORDERABLES Final Resu lt [facility] [address] [place] [address], [place] [phone] * (ABNORMAL) Complete blood count (02/21/2025 5:59 AM EDT) WBC 9.2 4.8 - 10.8 K/mcL LAB HEMETOLOGY METHOD 02/21/2025 1:48 PM EDT [facility] RBC 3.10(L) 3.80 - 4.80 M/mcL LAB HEMETOLOGY METHOD 02/21/2025 1:48 PM EDT [facility] Hemoglobin 9.6(L) 11.5 - 16.0 g/dL LAB HEMETOLOGY METHOD 02/21/2025 1:48 PM EDT [facility] Hematocrit 31.1(L) 35.0 - 47.0 % LAB HEMETOLOGY METHOD 02/21/2025 1:48 PM EDT [facility] MCV 100.0(H) 79.0 - 98.0 FL LAB HEMETOLOGY METHOD 02/21/2025 1:48 PM EDT [facility] MCH 30.9 27.0 - 32.0 pcg LAB HEMETOLOGY METHOD 02/21/2025 1:48 PM EDT [facility] MCHC 30.9(L) 32.0 - 37.0 g/dL LAB HEMETOLOGY METHOD 02/21/2025 1:48 PM EDT [facility] RDW 14.4 11.0 - 15.0 % LAB HEMETOLOGY METHOD 02/21/2025 1:48 PM EDT [facility] Platelets 563(H) 130 - 400 K/mcL LAB HEMETOLOGY METHOD 02/21/2025 1:48 PM EDT [facility] MPV 9.9 7.0 - 11.0 FL LAB HEMETOLOGY METHOD 02/21/2025 1:48 PM EDT [facility] NRBC 0.0 <1.0 % LAB HEMETOLOGY METHOD 02/21/2025 1:48 PM EDT [facility] NRBC Absolute 0.00 <0.10 K/mcL LAB HEMETOLOGY METHOD 02/21/2025 1:48 PM EDT [facility] Blood Venous blood specimen / Unknown 02/21/2025 5:59 AM EDT 02/21/2025 11:33 AM EDT us Jeronimo Norris MD LAB BLOOD ORDERABLES Final Resu lt [facility] [address] [place] [address], documented in this encounter Visit Diagnoses Diagnosis Essential (primary) hypertension Unspecified essential hypertension Gastro-esophageal reflux disease without esophagitis documented in this encounter Care Teams Assembler Cards And Announcements Relationship Specialty Start Date End Date Jeronimo Norris MD [address] [place] [address] PCP - General Internal Medicine 02/10/25 documented as of this encounter
--- OUTSIDE RECORDS SUMMARY | 2025-08-25 16:50 | XMS_ITS | Patient Health Record ---
Author Organization [facility] Address [address] [place] [address] Care Team Providers Care Plastic Tool Maker Name Role Phone Ismael Davis MD Primary Care Provider [facility] Unavailable [phone] Allergies Allergen (clinical drug ingredient) Drug/Non Drug [...] Status Risk Notes Problem Acquired hallux valgus (79059246) Hallux valgus (acquired), left foot (M20.12) Active confirmed Problem Acquired hallux valgus (24544494) Hallux valgus (acquired), right foot (M20.11) Active confirmed Problem Plantar fascial fibromatosis (96314531) 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 Problem Acquired hammer toe of right foot ([id number] 5) Other hammer toe(s) (acquired), right foot (M20.41) Active confirmed Problem Acquired hammer toe of left foot ([id number] 3) Other hammer toe(s) (acquired), left foot [...] Medicare Advantage [address] [place] [address] [id number] Vero Ramírez Self - patient is the insured Medical (General) History Medical History History ICD Code Arthritis Back,Hip,and Knee pain Depression Headaches/Migraines Kidney disease Measles Mumps Chicken pox Surgical History Surgery Date(Month/Year) hysterectomy gall bladder Hospitalization History Reason Date(Month/Year) [facility]- Bee sting 04/23/24 [facility]- Rheumatoid arthritis 11/2023
--- OUTSIDE RECORDS SUMMARY | 2025-08-25 16:50 | XMS_ITS | Encounter Summary ---
Author Organization [facility] Address [id number] [place] [id number] Care Team Providers Care Machine I Engraver Name Role Phone Jeronimo Norris MD Primary Care Provider [phone] Encounter Details Date Type Department Care Team (Late st Contact Info) Description 02/10/2025 Lab Requisition [facility] - Main Lab [address] [facility] [place] [address] Jeronimo Norris MD [address] [place] [address] Essential (primary) hypertension; Gastro-esophageal reflux [...] mmol/L LAB CHEMISTRY METHOD 02/10/2025 10:19 AM [facility] Potassium 4.1 3.5 - 5.5 mmol/L LAB CHEMISTRY METHOD 02/10/2025 10:19 AM [facility] Chloride 102 96 - 110 mmol/L LAB CHEMISTRY METHOD 02/10/2025 10:19 AM [facility] CO2 29 21 - 32 mmol/L LAB CHEMISTRY METHOD 02/10/2025 10:19 AM [facility] Anion Gap 7 3 - 11 LAB CHEMISTRY METHOD 02/10/2025 10:19 AM [facility] Glucose 87 70 - 100 mg/dL LAB CHEMISTRY METHOD 02/10/2025 10:19 AM [facility] BUN 25 5 - 25 mg/dL LAB CHEMISTRY METHOD 02/10/2025 10:19 AM [facility] Creatinine 0.78 0.50 - 1.10 mg/dL LAB CHEMISTRY METHOD 02/10/2025 10:19 AM [facility] eGFR 76 >=60 mL/min/1. 73m2 LAB CHEMISTRY METHOD 02/10/2025 10:19 AM [facility] Comment:Calculation based on the Chronic Kidney Disease Epidemiology Collaboration (CKD-EPI) equation refit without adjustment for race. BUN/Creatinine Ratio 32.1 LAB CHEMISTRY METHOD 02/10/2025 10:19 AM [facility] Calcium 8.8 8.5 - 10.5 mg/dL LAB CHEMISTRY METHOD 02/10/2025 10:19 AM [facility] AST (SGOT) 16 10 - 42 unit/L LAB CHEMISTRY METHOD 02/10/2025 10:19 AM [facility] ALT (SGPT) 8(L) 10 - 60 unit/L LAB CHEMISTRY METHOD 02/10/2025 10:19 AM [facility] Alkaline Phosphatase 65 42 - 121 unit/L LAB CHEMISTRY METHOD 02/10/2025 10:19 AM EDT [facility] Total Protein 5.9(L) 6.0 - 8.0 g/dL LAB CHEMISTRY METHOD 02/10/2025 10:19 AM [facility] Albumin 2.7(L) 3.2 - 5.0 g/dL LAB CHEMISTRY METHOD 02/10/2025 10:19 AM [facility] Total Bilirubin 0.5 0.0 - 1.4 mg/dL LAB CHEMISTRY METHOD 02/10/2025 10:19 AM [facility] Blood Venous blood specimen / Unknown Venipuncture / Unknown 02/10/2025 7:49 AM EDT 02/10/2025 9:40 AM EDT Jeronimo Norris MD LAB BLOOD ORDERABLES Final Resu lt [facility] [address] [place] [address], [place] [phone] * (ABNORMAL) Complete blood count (02/10/2025 7:49 AM EDT) WBC 13.5(H) 4.8 - 10.8 K/mcL LAB HEMETOLOGY METHOD 02/10/2025 10:01 AM [facility] RBC 3.40(L) 3.80 - 4.80 M/mcL LAB HEMETOLOGY METHOD 02/10/2025 10:01 AM [facility] Hemoglobin 10.6(L) 11.5 - 16.0 g/dL LAB HEMETOLOGY METHOD 02/10/2025 10:01 AM [facility] Hematocrit 32.6(L) 35.0 - 47.0 % LAB HEMETOLOGY METHOD 02/10/2025 10:01 AM [facility] MCV 96.7 79.0 - 98.0 FL LAB HEMETOLOGY METHOD 02/10/2025 10:01 AM EDT [facility] MCH 31.5 27.0 - 32.0 pcg LAB HEMETOLOGY METHOD 02/10/2025 10:01 AM [facility] MCHC 32.5 32.0 - 37.0 g/dL LAB HEMETOLOGY METHOD 02/10/2025 10:01 AM EDT [facility] RDW 12.9 11.0 - 15.0 % LAB HEMETOLOGY METHOD 02/10/2025 10:01 AM T [facility] Platelets 254 130 - 400 K/mcL LAB HEMETOLOGY METHOD 02/10/2025 10:01 AM [facility] MPV 11.2(H) 7.0 - 11.0 FL LAB HEMETOLOGY [facility] 0.0 <1.0 % LAB HEMETOLOGY METHOD 02/10/2025 10:01 AM [facility] NRBC Absolute 0.00 <0.10 K/mcL LAB HEMETOLOGY METHOD 02/10/2025 10:01 AM [facility] Blood Venous blood specimen / Unknown Venipuncture / Unknown 02/10/2025 7:49 AM EDT 02/10/2025 9:40 AM EDT us Jeronimo Norris MD LAB BLOOD ORDERABLES Final Resu lt [facility] [address] [place] [address], documented in this encounter Visit Diagnoses Diagnosis Essential (primary) hypertension Unspecified essential hypertension Gastro-esophageal reflux disease without esophagitis documented in this encounter Care Teams Machine I Engraver Relationship Specialty Start Date End Date Jeronimo Norris MD [address] [place] [address] PCP - General Internal Medicine 02/10/25 documented as of this encounter
== END 2025-08-23 13:19 | disposition home or self-care (01) ==
LOC: HO.HOSX 13:18
PROVIDERS: Visit Provider Physician Assistant
DX: S72.141A Displaced intertrochanteric fracture of right femur, initial encounter for closed fracture (principal); M54.16 Radiculopathy, lumbar region; X58.XXXA Exposure to other specified factors, initial encounter
CPT/HCPCS: 73552; 99212

== ENCOUNTER 2025-08-23 14:59 | Outpatient (AMB) | payer MEDICARE, SELFPAY ==
--- OUTSIDE RECORDS SUMMARY | 2024-08-05 05:45 | XMS_ITS ---
Author Organization [facility] Address [address] [place] [address] Care Team Providers Care Jukebox Checker Name Role Phone Ismael Davis MD Primary Care Provider Unavaila Kaiser Florse Unavailable [phone] REASON FOR VISIT Last PCP Visit: 04/26/24, Ingrown nail(s) Medications Medication SIG (Take, Route, Frequency, Duration) Notes Start Date End Date Status Voltaren 1 % as directed Externally Active Night Splint AFO - L1930 as directed Active Problems Problem Type SNOMED Code ICD Code Onset Dates Problem Status W/U Status Risk Notes Problem Plantar fascial fibromatosis (20294528) 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 Encounters Encounter Location Date Provider Diagnosis [facility] [address] [place] [address] 08/05/2024 Kaiser Johnson Tinea unguium B35.1 ; Pain in right toe(s) M79.674 ; Pain in left toe(s) M79.675 ; Hallux valgus (acquired), left foot M20.12 ; Hallux valgus (acquired), right foot M20.11 ; Other hammer toe(s) (acquired), left foot M20.42 ; Other hammer toe(s) (acquired), right foot M20.41 ; Tailor's bunion of left foot M21.622 ; Tailor's bunion of right foot M21.621 ; Xerosis cutis L85.3 ; Ingrowing nail L60.0 and Plantar fascial fibromatosis M72.2 Assessments Encounter Date Diagnosis (ICD Code) Assessment Notes Treatment Notes Treatment Clinical Notes Section Notes 08/05/2024 Tinea unguium (ICD-10 - B35.1) 08/05/2024 Pain in right toe(s) (ICD-10 - M79.674) 08/05/2024 Pain in left toe(s) (ICD-10 - M79.675) 08/05/2024 Hallux valgus (acquired), left foot (ICD-10 - M20.12) 08/05/2024 Hallux valgus (acquired), right foot (ICD-10 - M20.11) 08/05/2024 Other hammer toe(s) (acquired), left foot (ICD-10 - M20.42) 08/05/2024 Other hammer toe(s) (acquired), right foot (ICD-10 - M20.41) 08/05/2024 Tailor's bunion of left foot (ICD-10 - M21.622) 08/05/2024 Tailor's bunion of right foot (ICD-10 - M21.621) 08/05/2024 Xerosis cutis (ICD-10 - L85.3) 08/05/2024 Ingrowing nail (ICD-10 - L60.0) 08/05/2024 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 - M72.2) Patient Educated with: HEEL CORD STRETCHES.pdf (HEEL CORD STRETCHES.pdf) Patient Educated with: RICE THERAPY.pdf (RICE THERAPY.pdf) Plan Of Treatment Medication Medication Name Sig Start Date Stop Date Notes Voltaren 1 % as directed Externally Night Splint AFO - L1930 as directed Treatment Notes Assessment Notes Plantar fascial fibromatosis Patient Edu cated with: HEEL CORD STRETCHES.pdf (HEEL CORD STRETCHES.pdf) Patient Educated with: RICE THERAPY.pdf (RICE THERAPY.pdf) Next Appt Details Follow Up: 3 Months, Reason: Procedure Notes * Category Sub-Category Detail Notes Nail Avulsion Procedure A fine sterile e levator was used to loosen the eponychium, nail bed, nail plate and groove. A sterile nail splitter was then used to longitudinally section the nail. This section was removed. No underlying bone was identified. Procedure was performed under. Bacitracin and sterile dressings applied, local wound care instructions were dispensed. Patient was informed of both conservative and future surgical procedures to prevent recurrence Anesthesia was deferred - PT AB SOLUTELY REFUSES - tolerant to pain without issue/complication Location Medial nail border, T1 Progress Notes * Vero CONNELLYDOB: [birth year] (85 yo F)Acc No.[id number]:08/05/2024 Progress Note Patient: Vero YOUNGBLOOD Provider: Yudelka Riddle DPM :1940 A ge:83 Y S ex:Female Date:08/05/2024 Address: [address], [facility] Pcp:Ismael Davis MD Subjective: * Chief Complaints: * 1 . Last PCP Visit: 04/26/24. 2. Ingrown nail(s). * HPI: F oot Pain: Nature: d ull, aching, sharp. Location B /L, Forefoot. Duration: s everal years. Onset/Cause: u nknown. Course: i mproved. Aggrevated: a ny pressure, shoes. Treatments: c hange in shoes; pt just started using yoga toes 08/02; voltaren gel didn't help; pedag insoles. Quality/Severity 3 , scale 1-10. H eel pain: Nature: s harp pain. Location: p lantar , Arch , B/L. Duration: s everal months. Onset/Cause: u nknown. Course: i mproved. Aggravated: w alking first thing in the morning/after rest.? Treatments: p re-fabricated orthoses, AFO-nightsplint. Severity/Quality: S tates 2 out of 10. * ROS: G eneral/Constitutional: Nausea d enies. V omiting d enies. H ferny Thirst d enies. L oss appetite d enies. C hills d enies. F atigue d enies.?Fever d enies. N ight Sweats d enies. U nexplained weight loss d enies. U nexplained weight gain d enies. H EENTM: Dentures d enies. D izziness d enies. G lasses/contacts d enies. R etinopathy d enies. B lurred/double vision d enies. T MJ?denies. D ischarge/drainage d enies. I mplants d enies. S ore throat d enies. D ental implants d enies. H rita of hearing d enies. D ifficulty chewing/swallowing/speaking d enies. N ose bleeds d enies. S ore mouth d enies. ? R espiratory: On Oxygen d enies. P neumonia/pleurisy d enies.?Bronchitis d enies. E mphysema d enies. C oughing d enies. C ough blood?denies. S hortness of breath d enies. W heezing d enies. C ardiovascular: Pacemaker d enies. M CHEMICAL DEPENDENCY THERAPIST d enies. W PW d enies. C HF d enies. H eart attack d enies. S eptal defect d enies. R apid beat d enies. C hest pain d enies. A trial Fib. d enies. M urmur/Palpitations d enies. G astrointestinal: Hemorrhoids d enies. S tomach/Abdominal pain d enies. D ark blood stool d enies. I rritable bowel d enies. C onstipation d enies. D iarrhea d enies. H ematology: Swelling d enies. C lots d enies. V aricose Veins d enies. B ruising d enies. B leeding problem d enies. G enitourinary: Blood urine d enies. F requent/Painfu/urination/bladder control d enies. K idney stones d enies. I nfection (UTI) d enies. N ephropathy d enies. s ex trans dis (STD) d enies. P rostate d enies. M usculoskeletal: Hammertoes a dmits. B unions a dmits. B ack Pain d enies. M uscle Cramps/ Resting d enies. M uscle cramps / walking d enies.?Generalized aches and pains d enies. W eakness d enies. I nteg.: [place] d enies. S cars d enies. C orns/calluses?admits. I ngrown nails d enies. P ainful nails d enies. O pen Sores d enies. R ashes d enies. N eurologic: Difficulty sleeping d enies. B rain disorder d enies. N umbness d enies. B alance trouble d enies. C onfusion d enies. F ainting/blackouts d enies. T ingling d enies. T remors d enies. * Medical History: Objective: * Vitals: * Examination: G eneral Examination: GENERAL APPEARANCE: p leasant, alert, well nourished, well developed, well hydrated, with good attention to hygene/body habitus, and in no acute distress. ORIENTED: p erson,place, and time. N eurological: SENSORY: N eurological exam is normal, pain sensation normal, vibration sensation intact, pinprick sensation is normal in the lower extremities, denies, tingling, burning, anesthesia, paresthesia, hyperesthesia, B/L , Neurological exam demonstrates mild p op of plantar fascia anshul midsection. TINEL'S COMPRESSION: N egative tarsal tunnel, ya pedis, and medial calcaneal nerves B/L. BABINSKI REFLEX: a bsent. N euroma Pain: PALPATION: N o interspace pain noted on palpation. ? V ascular: DP PULSES (B): 1/4, B/L. PT PULSES (B): 1/4, B/L. CAPILLARY FILL TIME: 3 secs. per digit, B/L. TROPHIC CONDITION-TEXTURE/ELASTICITY/TURGOR/HAIR GROWTH (B):?normal, B/L. TEMPERTURE GRADIENT (C): w arm to cool, proximal to distal, B/L. PIGMENTATION: n ormal, B/L. EDEMA (C): n o edema. TELANGECTASIA: a bsent. VARICOSITIES: a bsent. D ermatologic: SKIN FINDINGS: S kin exam reveals Keratotic lesion(s) located at , Plantar , T2. O rthopedic: MUSCLE STRENGTH: 5 /5 all groups in a symmetrical fashion , B/L. GAIT ABNORMALITY: p ronated, abducted, B/L. BUNION: Medially prominent 1st MPJ, (+) Pain on palpation, B/L, Lateral tracking 1st MPJ incompletely reducable. TAILOR'S BUNION: Prominent, painful, inflammed 5th MTH/MPJ, B/L. DIGITAL DEFORMITIES: Digital contracture, PIPJ, 2-5 B/L, incompl-reducable with WB, or to push-up test, no over, nor underlapping; pop of dipj anshul 2,3. ? N ails: NAILS are: e longated,overgrown,dystrophic,greater than 3mm thick,discolored and friable with crumbly malodorous subungual debris, with pain on palpation, 1-5 B/L. I ngrown Nail: INSPECTION: Reveals nail incurvation, pain on palpation, groove hypertrophy, groove ischemia Medial nail border, nail border, T1. Assessment: * Assessment: 1. T inea unguium - B35.1 (Primary) 2 . P ain in right toe(s) - M79.674? 3. P ain in left toe(s) - M79.675 4 . H allux valgus (acquired), left foot - M20.12 5 . H allux valgus (acquired), right foot - M20.11 & #160; 6 . O ther hammer toe(s) (acquired), left foot - M20.42 7 . O ther hammer toe(s) (acquired), right foot - M20.41 8 . T ailor's bunion of left foot - M21.622 9 . T ailor's bunion of right foot - M21.621 1 0. X erosis cutis - L85.3 1 1. I ngrowing nail - L60.0 1 2. P lantar fascial fibromatosis - M72.2 Plan: * Treatment: 2. P lantar fascial fibromatosis Start Night Splint AFO - L1930, as directed, Dx Plantar Fasciitis. Notes: Patient Educated with: HEEL CORD STRETCHES.pdf (HEEL CORD STRETCHES.pdf) Patient Educated with: RICE THERAPY.pdf (RICE THERAPY.pdf) * Procedures: N ail Avulsion: Location M edial nail border, T1. Anesthesia w as deferred - PT ABSOLUTELY REFUSES - tolerant to pain without issue/complication. Procedure A fine sterile elevator was used to loosen the eponychium, nail bed, nail plate and groove. A sterile nail splitter was then used to longitudinally section the nail. This section was removed. No underlying bone was identified. Procedure was performed under. Bacitracin and sterile dressings applied, local wound care instructions were dispensed. Patient was informed of both conservative and future surgical procedures to prevent recurrence. ? * Procedure Codes: 1 1730 Avulsion Plate, Modifiers: T1 * Follow Up: 3 Months * Images: * The named appointment provid er may or may not be the originator of this progress note, and it is not deemed complete until electronically signed by the appointment provider. Sign off status: Pending * Provider: Yudelka Riddle DPM Date: Generated for Astrid Teran/Rhett on: 10/23/2024 04:43 PM EST History and Physical Notes * HPI (History of Present Illness) Category Sub-Category Detail Notes Category Not es Heel pain Duration: several months Nature: sharp pain Severity/Quality: States 2 out of 10 Location: plantar , Arch , B/L Onset/Cause: unknown Aggravated: walking first thing in the morning/after rest Course: improved Treatments: pre-fabricated ortho ses, AFO-nightsplint Foot Pain Aggrevated: any pressure, shoes Onset/Cause: unknown Course: improved Duration: several years Nature: dull, aching, sharp Treatments: change in shoes; pt just started using yoga toes 08/02; voltaren gel didn't help; pedag insoles Quality/Severity 3, scale 1-10 Location B/L, Forefoot Examination Category Sub-Category Detail Notes Category Not es Ingrown Nail INSPECTION: Reveals nail inc urvation, pain on palpation, groove hypertrophy, groove ischemia Medial nail border, nail border, T1 Neuroma Pain PALPATION: No interspace pain noted on palpation Neurological SENSORY: Neurological exa m is normal, pain sensation normal, vibration sensation intact, pinprick sensation is normal in the lower extremities, denies, tingling, burning, anesthesia, paresthesia, hyperesthesia, B/L , Neurological exam demonstrates mild pop of plantar fascia anshul midsection BABINSKI REFLEX: absent TINEL'S COMPRESSION: Negative tarsal sarika moraima, ya pedis, and medial calcaneal nerves B/L Dermatologic SKIN FINDINGS: Skin exam reveal s Keratotic lesion(s) located at , Plantar , T2 Orthopedic GAIT ABNORMALITY: pronated, abducted, B/L BUNION: Medially prominent 1 st MPJ, (+) Pain on palpation, B/L, Lateral tracking 1st MPJ incompletely reducable DIGITAL DEFORMITIES: Digital contracture , PIPJ, 2-5 B/L, incompl-reducable with WB, or to push-up test, no over, nor underlapping; pop of dipj anshul 2,3 TAILOR'S BUNION: Prominent, painful, inflammed 5th MTH/MPJ, B/L MUSCLE STRENGTH: 5/5 all groups in a symmetrical fashion , B/L General Examination GENERAL APPEARANCE: pleasant , alert, well nourished, well developed, well hydrated, with good attention to hygene/body habitus, and in no acute distress ORIENTED: person,place, and ti me Vascular DP PULSES (B): 1/4, B/L PT PULSES (B): 1/4, B/L CAPILLARY FILL TIME: 3 secs. per digit, B/L TEMPERTURE GRADIENT (C): warm to cool, p roximal to distal, B/L TROPHIC CONDITION-TEXTURE/ELASTICITY/TURGOR/HAIR GROWTH (B): normal, B/L EDEMA (C): no edema TELANGECTASIA: absent VARICOSITIES: absent PIGMENTATION: normal, B/L Nails NAILS are: elongated,overgr own,dystrophic,greater than 3mm thick,discolored and friable with crumbly malodorous subungual debris, with pain on palpation, 1-5 B/L
--- NOTE | 2025-08-23 16:10 | MHC.OFFVIS ---
Intake Visit Reasons: OV-right hip IM Nail 02/08/25 w/xray Intake Note: Ms. Ramírez is an 85-year-old female who presents to the office today for routine follow-up status post right hip IM nail performed on 02/08/[address] Pardo. She reports that she has been having significant right buttock pain that radiates throughout the entire right lower extremity. She is using a cane to assist with ambulation. Allergies naproxen (NAPROXEN) Allergy (Intermediate, Verified 07/06/25 16:05) BLISTERS IN MOUTH Sulfa (Sulfonamide Antibiotics) (SULFA (SULFONAMIDE ANTIBIOTICS)) Allergy (Intermediate, Verified 07/06/25 16:05) BLISTERS ON TONGUE PFSH Medical History IBS (irritable bowel syndrome) Hyperlipidemia Hypertension Dyspnea on exertion Bronchitis Polymyalgia rheumatica Surgical History History of hip surgery Hx of cholecystectomy Hx of hysterectomy Family History Mother CHF (congestive heart failure) Social History Household Members: Spouse Housing: House Do you presently have visiting nurse or other home services: No Alcohol intake: current Alcohol intake frequency: holidays/special occasions only Patient Tobacco Use Status: Former Tobacco user Tobacco use type: Cigarette Cigarettes Per Day: 15 Years Smoked: 4 e-Cigarette/Vaping Use: Never Used Second Hand Smoke Exposure: No Substance Use Type: Marijuana Advance Directives Date on File: 11/24/23 service: No Current occupational status: retired Review of Systems Const All systems reviewed & are unremarkable except as noted in HPI and below Physical Exam Const General: cooperative, healthy appearing and no acute distress Resp Effort & Inspection: normal respiratory effort and able to speak in complete sentences Extrem Other: Right hip able to perform a straight leg raise. Good internal external rotation with no pain. Slight tenderness to palpation over the distal screw. NVI. Psych Appearance: grossly normal Mental Status: mental status grossly normal Attitude: cooperative Assessment & Plan Assessment & Plan (1) Closed intertrochanteric fracture of right femur: Code(s): S72.141A - Displaced intertrochanteric fracture of right femur, initial encounter for closed fracture Category: Medical (2) Lumbar radicular pain: Code(s): M54.16 - Radiculopathy, lumbar region Category: Medical Plan Ms. Ramírez is an 85-year-old female who presents to the office today for routine follow-up status post right hip IM nail performed on 02/08/[address] Pardo. She reports that she has been having significant right buttock pain that radiates throughout the entire right lower extremity. She is using a cane to assist with ambulation. While in the office today, I discussed with the patient that overall she seems to be doing quite well in regards to her postoperative recovery from the right intertroch fracture with operative fixation. At this time, it appears that she is dealing with a flare-up of her lumbar radiculopathy affecting the right lower extremity. The patient has seen our spine center in the past and therefore I have recommended that she contact them to be seen in for recommendation of additional treatment options regarding her pain. Her follow up with Orthopedics will be PRN, sooner if needed. X-rays of the right femur which were obtained while in the office today and were reviewed by me, Sasha Douglas PA-C, revealed intact orthopedic hardware. Distal screw has backed out slightly but is not causing the patient any pain and is stable from prior imaging. Orders: Orders XR femur RT 2V Today S72.141A - Displaced intertrochanteric fracture of right femur, initial encounter for closed fracture Coding Level of Care Code Est Pt Level 3 (39247) Diagnoses Closed intertrochanteric fracture of right femur S72.141A Lumbar radicular pain M54.16
--- OUTSIDE RECORDS SUMMARY | 2025-08-23 16:43 | XMS_ITS | Encounter Summary ---
Author Organization [facility] Address [address] [place] [address] Care Team Providers Care Building Insulation Supervisor Name Role Phone Jeronimo Norris MD Primary Care Provider [phone] Encounter Details Date Type Department Care Team (Late st Contact Info) Description 02/10/2025 Lab Requisition [facility] - Main Lab [address] [facility] [place] [address] Jeronimo Norris MD [address] [place] [address] Essential (primary) hypertension; Gastro-esophageal reflux [...] mmol/L LAB CHEMISTRY METHOD 02/10/2025 10:19 AM [facility] Potassium 4.1 3.5 - 5.5 mmol/L LAB CHEMISTRY METHOD 02/10/2025 10:19 AM [facility] Chloride 102 96 - 110 mmol/L LAB CHEMISTRY METHOD 02/10/2025 10:19 AM [facility] CO2 29 21 - 32 mmol/L LAB CHEMISTRY METHOD 02/10/2025 10:19 AM [facility] Anion Gap 7 3 - 11 LAB CHEMISTRY METHOD 02/10/2025 10:19 AM [facility] Glucose 87 70 - 100 mg/dL LAB CHEMISTRY METHOD 02/10/2025 10:19 AM [facility] BUN 25 5 - 25 mg/dL LAB CHEMISTRY METHOD 02/10/2025 10:19 AM [facility] Creatinine 0.78 0.50 - 1.10 mg/dL LAB CHEMISTRY METHOD 02/10/2025 10:19 AM [facility] eGFR 76 >=60 mL/min/1. 73m2 LAB CHEMISTRY METHOD 02/10/2025 10:19 AM [facility] Comment:Calculation based on the Chronic Kidney Disease Epidemiology Collaboration (CKD-EPI) equation refit without adjustment for race. BUN/Creatinine Ratio 32.1 LAB CHEMISTRY METHOD 02/10/2025 10:19 AM [facility] Calcium 8.8 8.5 - 10.5 mg/dL LAB CHEMISTRY METHOD 02/10/2025 10:19 AM [facility] AST (SGOT) 16 10 - 42 unit/L LAB CHEMISTRY METHOD 02/10/2025 10:19 AM [facility] ALT (SGPT) 8(L) 10 - 60 unit/L LAB CHEMISTRY METHOD 02/10/2025 10:19 AM [facility] Alkaline Phosphatase 65 42 - 121 unit/L LAB CHEMISTRY METHOD 02/10/2025 10:19 AM EDT [facility] Total Protein 5.9(L) 6.0 - 8.0 g/dL LAB CHEMISTRY METHOD 02/10/2025 10:19 AM [facility] Albumin 2.7(L) 3.2 - 5.0 g/dL LAB CHEMISTRY METHOD 02/10/2025 10:19 AM [facility] Total Bilirubin 0.5 0.0 - 1.4 mg/dL LAB CHEMISTRY METHOD 02/10/2025 10:19 AM [facility] Blood Venous blood specimen / Unknown Venipuncture / Unknown 02/10/2025 7:49 AM EDT 02/10/2025 9:40 AM EDT Jeronimo Norris MD LAB BLOOD ORDERABLES Final Resu lt [facility] [address] [place] [address], [place] [phone] * (ABNORMAL) Complete blood count (02/10/2025 7:49 AM EDT) WBC 13.5(H) 4.8 - 10.8 K/mcL LAB HEMETOLOGY METHOD 02/10/2025 10:01 AM [facility] RBC 3.40(L) 3.80 - 4.80 M/mcL LAB HEMETOLOGY METHOD 02/10/2025 10:01 AM [facility] Hemoglobin 10.6(L) 11.5 - 16.0 g/dL LAB HEMETOLOGY METHOD 02/10/2025 10:01 AM [facility] Hematocrit 32.6(L) 35.0 - 47.0 % LAB HEMETOLOGY METHOD 02/10/2025 10:01 AM [facility] MCV 96.7 79.0 - 98.0 FL LAB HEMETOLOGY METHOD 02/10/2025 10:01 AM EDT [facility] MCH 31.5 27.0 - 32.0 pcg LAB HEMETOLOGY METHOD 02/10/2025 10:01 AM [facility] MCHC 32.5 32.0 - 37.0 g/dL LAB HEMETOLOGY METHOD 02/10/2025 10:01 AM EDT [facility] RDW 12.9 11.0 - 15.0 % LAB HEMETOLOGY METHOD 02/10/2025 10:01 AM T [facility] Platelets 254 130 - 400 K/mcL LAB HEMETOLOGY METHOD 02/10/2025 10:01 AM [facility] MPV 11.2(H) 7.0 - 11.0 FL LAB HEMETOLOGY METHOD [facility] NRBC 0.0 <1.0 % LAB HEMETOLOGY METHOD 02/10/2025 10:01 AM [facility] NRBC Absolute 0.00 <0.10 K/mcL LAB HEMETOLOGY METHOD 02/10/2025 10:01 AM [facility] Blood Venous blood specimen / Unknown Venipuncture / Unknown 02/10/2025 7:49 AM EDT 02/10/2025 9:40 AM EDT us Jeronimo Norris MD LAB BLOOD ORDERABLES Final Resu lt [facility] [address] [place] [address], documented in this encounter Visit Diagnoses Diagnosis Essential (primary) hypertension Unspecified essential hypertension Gastro-esophageal reflux disease without esophagitis documented in this encounter Care Teams Building Insulation Supervisor Relationship Specialty Start Date End Date Jeronimo Norris MD [address] [place] [address] PCP - General Internal Medicine 02/10/25 documented as of this encounter
--- OUTSIDE RECORDS SUMMARY | 2025-08-23 16:43 | XMS_ITS | Encounter Summary ---
Author Organization [facility] Address [address] [place] [address] Care Team Providers Care Principal Mechanical Engineer Name Role Phone Jeronimo Norris MD Primary Care Provider [phone] Encounter Details Date Type Department Care Team (Late st Contact Info) Description 02/23/2025 Lab Requisition [facility] - Main Lab [address] [facility] [place] [address] Jeronimo Norris MD [address] [place] [address] Essential (primary) hypertension; Gastro-esophageal reflux [...] mmol/L LAB CHEMISTRY METHOD 02/24/2025 9:17 AM [facility] Potassium 4.1 3.5 - 5.5 mmol/L LAB CHEMISTRY METHOD 02/24/2025 9:17 AM [facility] LAB Chloride 102 96 - 110 mmol/L LAB CHEMISTRY METHOD 02/24/2025 9:17 AM [facility] LAB CO2 29 21 - 32 mmol/L LAB CHEMISTRY METHOD 02/24/2025 9:17 AM [facility] LAB Anion Gap 7 3 - 11 LAB CHEMISTRY METHOD 02/24/2025 9:17 AM [facility] LAB Glucose 84 70 - 100 mg/dL LAB CHEMISTRY METHOD 02/24/2025 9:17 AM [facility] LAB BUN 20 5 - 25 mg/dL LAB CHEMISTRY METHOD 02/24/2025 9:17 AM [facility] LAB Creatinine 0.48(L) 0.50 - 1.10 mg/dL LAB CHEMISTRY METHOD 02/24/2025 9:17 AM [facility] LAB eGFR 95 >=60 mL/min/1. 73m2 LAB CHEMISTRY METHOD 02/24/2025 9:17 AM [facility] LAB Comment:Calculation based on the Chronic Kidney Disease Epidemiology Collaboration (CKD-EPI) equation refit without adjustment for race. BUN/Creatinine Ratio 41.7 LAB CHEMISTRY METHOD 02/24/2025 9:17 AM [facility] LAB Calcium 8.9 8.5 - 10.5 mg/dL LAB CHEMISTRY METHOD 02/24/2025 9:17 AM [facility] LAB Blood Venous blood specimen / Unknown Venipuncture / Unknown 02/24/2025 6:35 AM EDT 02/24/2025 8:22 AM EDT us Jeronimo Norris MD LAB BLOOD ORDERABLES Final Resu lt [facility] LAB [address] [place] [address], * (ABNORMAL) Complete blood count (02/24/2025 6:35 AM EDT) [facility] WBC 7.8 4.8 - 10.8 K/mcL LAB HEMETOLOGY METHOD 02/24/2025 8:52 AM EDT [facility] LAB RBC 3.10(L) 3.80 - 4.80 M/mcL LAB HEMETOLOGY METHOD 02/24/2025 8:52 AM EDT [facility] LAB Hemoglobin 9.6(L) 11.5 - 16.0 g/dL LAB HEMETOLOGY METHOD 02/24/2025 8:52 AM EDT [facility] LAB Hematocrit 29.9(L) 35.0 - 47.0 % LAB HEMETOLOGY METHOD 02/24/2025 8:52 AM EDT [facility] LAB MCV 97.1 79.0 - 98.0 FL LAB HEMETOLOGY METHOD 02/24/2025 8:52 AM EDT [facility] LAB MCH 31.2 27.0 - 32.0 pcg LAB HEMETOLOGY METHOD 02/24/2025 8:52 AM EDT [facility] LAB MCHC 32.1 32.0 - 37.0 g/dL LAB HEMETOLOGY METHOD 02/24/2025 8:52 AM EDT [facility] LAB RDW 14.3 11.0 - 15.0 % LAB HEMETOLOGY METHOD 02/24/2025 8:52 AM EDT [facility] LAB Platelets 537(H) 130 - 400 K/mcL LAB HEMETOLOGY METHOD 02/24/2025 8:52 AM EDT [facility] MPV 9.9 7.0 - 11.0 FL LAB HEMETOLOGY METHOD 02/24/2025 8:52 AM EDT [facility] NRBC 0.0 <1.0 % LAB HEMETOLOGY METHOD 02/24/2025 8:52 AM EDT [facility] LAB NRBC Absolute 0.00 <0.10 K/mcL LAB HEMETOLOGY METHOD 02/24/2025 8:52 AM EDT [facility] LAB Blood Venous blood specimen / Unknown Venipuncture / Unknown 02/24/2025 6:35 AM EDT 02/24/2025 8:22 AM EDT Jeronimo Norris MD LAB BLOOD ORDERABLES Final Resu lt [facility] LAB [address] [place] [address], documented in this encounter Visit Diagnoses Diagnosis Essential (primary) hypertension Unspecified essential hypertension Gastro-esophageal reflux disease without esophagitis documented in this encounter Care Teams Principal Mechanical Engineer Relationship Specialty Start Date End Date Jeronimo Norris MD [address] [place] [address] PCP - General Internal Medicine 02/10/25 documented as of this encounter
--- OUTSIDE RECORDS SUMMARY | 2025-08-23 16:43 | XMS_ITS | Encounter Summary ---
Author Organization [facility] Address [address] [place] [address] Care Team Providers Care Interactive Media Designer Name Role Phone Jeronimo Norris MD Primary Care Provider [phone] Encounter Details Date Type Department Care Team (Late st Contact Info) Description 02/13/2025 Lab Requisition [facility] - Main Lab 299 [facility] [place] [address] Jeronimo Norris MD [address] [place] [address] Essential (primary) hypertension; Gastro-esophageal [...] mmol/L LAB CHEMISTRY METHOD 02/14/2025 9:15 AM [facility] Potassium 4.8 3.5 - 5.5 mmol/L LAB CHEMISTRY METHOD 02/14/2025 9:15 AM [facility] LAB Chloride 107 96 - 110 mmol/L LAB CHEMISTRY METHOD 02/14/2025 9:15 AM [facility] CO2 25 21 - 32 mmol/L LAB CHEMISTRY METHOD 02/14/2025 9:15 AM [facility] LAB Anion Gap 9 3 - 11 LAB CHEMISTRY METHOD 02/14/2025 9:15 AM [facility] LAB Glucose 92 70 - 100 mg/dL LAB CHEMISTRY METHOD 02/14/2025 9:15 AM [facility] BUN 25 5 - 25 mg/dL LAB CHEMISTRY METHOD 02/14/2025 9:15 AM [facility] LAB Creatinine 0.60 0.50 - 1.10 mg/dL LAB CHEMISTRY METHOD 02/14/2025 9:15 AM [facility] LAB eGFR 90 >=60 mL/min/1. 73m2 LAB CHEMISTRY METHOD 02/14/2025 9:15 AM [facility] LAB Comment:Calculation based on the Chronic Kidney Disease Epidemiology Collaboration (CKD-EPI) equation refit without adjustment for race. BUN/Creatinine Ratio 41.7 LAB CHEMISTRY METHOD 02/14/2025 9:15 AM [facility] LAB Calcium 8.8 8.5 - 10.5 mg/dL LAB CHEMISTRY METHOD 02/14/2025 9:15 AM [facility] LAB AST (SGOT) 46(H) 10 - 42 unit/L LAB CHEMISTRY METHOD 02/14/2025 9:15 AM [facility] ALT (SGPT) 23 10 - 60 unit/L LAB CHEMISTRY METHOD 02/14/2025 9:15 AM [facility] LAB Alkaline Phosphatase 70 42 - 121 unit/L LAB CHEMISTRY METHOD 02/14/2025 9:15 AM EDT [facility] Total Protein 5.5(L) 6.0 - 8.0 g/dL LAB CHEMISTRY METHOD 02/14/2025 9:15 AM [facility] Albumin 2.5(L) 3.2 - 5.0 g/dL LAB CHEMISTRY METHOD 02/14/2025 9:15 AM [facility] Total Bilirubin 0.5 0.0 - 1.4 mg/dL LAB CHEMISTRY METHOD 02/14/2025 9:15 AM [facility] LAB Blood Venous blood specimen / Unknown Venipuncture / Unknown 02/14/2025 6:22 AM EDT 02/14/2025 8:24 AM EDT Jeronimo Norris MD LAB BLOOD ORDERABLES Final Resu lt [facility] [address] [place] [address], * (ABNORMAL) Complete blood count (02/14/2025 6:22 AM EDT) WBC 14.2(H) 4.8 - 10.8 K/[facility] LAB HEMETOLOGY METHOD 02/14/2025 8:46 AM [facility] LAB RBC 3.30(L) 3.80 - 4.80 M/[facility] LAB HEMETOLOGY METHOD 02/14/2025 8:46 AM [facility] LAB Hemoglobin 10.0(L) 11.5 - 16.0 g/dL LAB HEMETOLOGY METHOD 02/14/2025 8:46 AM [facility] LAB Hematocrit 31.6(L) 35.0 - 47.0 % LAB HEMETOLOGY METHOD 02/14/2025 8:46 AM [facility] LAB MCV 96.0 79.0 - 98.0 FL LAB HEMETOLOGY METHOD 02/14/2025 8:46 AM EDT [facility] MCH 30.4 27.0 - 32.0 pcg LAB HEMETOLOGY METHOD 02/14/2025 8:46 AM EDT [facility] MCHC 31.6(L) 32.0 - 37.0 g/dL LAB HEMETOLOGY METHOD 02/14/2025 8:46 AM EDT [facility] RDW 13.1 11.0 - 15.0 % LAB HEMETOLOGY METHOD 02/14/2025 8:46 AM EDT [facility] Platelets 321 130 - 400 K/mcL LAB HEMETOLOGY METHOD 02/14/2025 8:46 AM EDT [facility] MPV 10.6 7.0 - 11.0 FL LAB HEMETOLOGY METHOD 02/14/2025 8:46 AM EDT [facility] NRBC 0.0 <1.0 % LAB HEMETOLOGY METHOD 02/14/2025 8:46 AM T [facility] LAB NRBC Absolute 0.00 <0.10 K/mcL LAB HEMETOLOGY METHOD 02/14/2025 8:46 AM T [facility] Blood Venous blood specimen / Unknown Venipuncture / Unknown 02/14/2025 6:22 AM EDT 02/14/2025 8:34 AM EDT us Jeronimo Norris MD LAB BLOOD ORDERABLES Final Resu lt [facility] [address] [place] [address], documented in this encounter Visit Diagnoses Diagnosis Essential (primary) hypertension Unspecified essential hypertension Gastro-esophageal reflux disease without esophagitis documented in this encounter Care Teams Interactive Media Designer Relationship Specialty Start Date End Date Jeronimo Norris MD [address] [place] [address] PCP - General Internal Medicine 02/10/25 documented as of this encounter
--- OUTSIDE RECORDS SUMMARY | 2025-08-23 16:43 | XMS_ITS | Patient Health Record ---
Author [facility] Address [address] [facility] [place] [address] Care Team Providers Care Greens Planter Name Role Phone Ismael Davis MD Primary Care Provider [facility] Unavailable [phone] Allergies Allergen (clinical drug ingredient) Drug/Non Drug [...] Status Risk Notes Problem Acquired hallux valgus (89627202) Hallux valgus (acquired), left foot (M20.12) Active confirmed Problem Acquired hallux valgus (46251500) Hallux valgus (acquired), right foot (M20.11) Active confirmed Problem Plantar fascial fibromatosis (85543846) 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 Problem Acquired hammer toe of right foot ([id number] 5) Other hammer toe(s) (acquired), right foot (M20.41) Active confirmed Problem Acquired hammer toe of left foot (346218974641662 3) Other hammer toe(s) (acquired), left foot (M20.42) Active confirmed Plan Of Treatment Pending Test Test Name [...] Medicare Advantage [address] [facility] [place] [address] [id number] Vero Ramírez Self - patient is the insured Medical (General) History Medical History History ICD Code Arthritis Back,Hip,and Knee pain Depression Headaches/Migraines Kidney disease Measles Mumps Chicken pox Surgical History Surgery Date(Month/Year) hysterectomy gall bladder Hospitalization History Reason Date(Month/Year) [facility]- Bee sting 04/23/24 [facility]- Rheumatoid arthritis 11/2023
--- OUTSIDE RECORDS SUMMARY | 2025-08-23 16:43 | XMS_ITS | Encounter Summary ---
Author Organization [facility] Address [address] [place] [address] Care Team Providers Care Ceiling Cleaner Name Role Phone Jeronimo Norris MD Primary Care Provider [phone] Encounter Details Date Type Department Care Team (Late st Contact Info) Description 02/16/2025 Lab Requisition [facility] - Main Lab [address] [facility] [place] [address] Jeronimo Norris MD [address] [place] [address] Essential (primary) hypertension; Gastro-esophageal reflux [...] mmol/L LAB CHEMISTRY METHOD 02/17/2025 10:00 AM [facility] LAB Potassium 4.1 3.5 - 5.5 mmol/L LAB CHEMISTRY METHOD 02/17/2025 10:00 AM [facility] LAB Chloride 104 96 - 110 mmol/L LAB CHEMISTRY METHOD 02/17/2025 10:00 AM [facility] LAB CO2 29 21 - 32 mmol/L LAB CHEMISTRY METHOD 02/17/2025 10:00 AM [facility] LAB Anion Gap 6 3 - 11 LAB CHEMISTRY METHOD 02/17/2025 10:00 AM [facility] LAB Glucose 79 70 - 100 mg/dL LAB CHEMISTRY METHOD 02/17/2025 10:00 AM [facility] BUN 19 5 - 25 mg/dL LAB CHEMISTRY METHOD 02/17/2025 10:00 AM [facility] Creatinine 0.41(L) 0.50 - 1.10 mg/dL LAB CHEMISTRY METHOD 02/17/2025 10:00 AM [facility] LAB eGFR 98 >=60 mL/min/1. 73m2 LAB CHEMISTRY METHOD 02/17/2025 10:00 AM [facility] LAB Comment:Calculation based on the Chronic Kidney Disease Epidemiology Collaboration (CKD-EPI) equation refit without adjustment for race. BUN/Creatinine Ratio 46.3 LAB CHEMISTRY METHOD 02/17/2025 10:00 AM [facility] Calcium 8.7 8.5 - 10.5 mg/dL LAB CHEMISTRY METHOD 02/17/2025 10:00 AM [facility] LAB Blood Venous blood specimen / Unknown Venipuncture / Unknown 02/17/2025 6:11 AM EDT 02/17/2025 8:50 AM EDT us Jeronimo Norris MD LAB BLOOD ORDERABLES Final Resu lt [facility] [address] [place] [address], * (ABNORMAL) Complete blood count (02/17/2025 6:11 AM EDT) [facility] WBC 8.3 4.8 - 10.8 K/mcL LAB HEMETOLOGY METHOD 02/17/2025 9:[address] [facility] RBC 2.90(L) 3.80 - 4.80 M/mcL LAB HEMETOLOGY METHOD 02/17/2025 9:[address] [facility] Hemoglobin 9.2(L) 11.5 - 16.0 [...] pcg LAB HEMETOLOGY METHOD 02/17/2025 9:03 AM [facility] MCHC 32.9 32.0 - [...] LAB HEMETOLOGY METHOD 02/17/2025 9:[address] [facility] NRBC 0.0 <1.0 % LAB HEMETOLOGY METHOD 02/17/2025 9:[address] [facility] NRBC Absolute 0.00 <0.10 K/mcL LAB HEMETOLOGY METHOD 02/17/2025 9:[address] [facility] Blood Venous blood specimen / Unknown Venipuncture / Unknown 02/17/2025 6:11 AM EDT 02/17/2025 8:50 AM EDT Jeronimo Norris MD LAB BLOOD ORDERABLES Final Resu lt [facility] [address] [place] [address], documented in this encounter Visit Diagnoses Diagnosis Essential (primary) hypertension Unspecified essential hypertension Gastro-esophageal reflux disease without esophagitis documented in this encounter Care Teams Ceiling Cleaner Relationship Specialty Start Date End Date Jeronimo Norris MD [address] [place] [address] PCP - General Internal Medicine 02/10/25 documented as of this encounter
--- OUTSIDE RECORDS SUMMARY | 2025-08-23 16:43 | XMS_ITS | Clinical Summary ---
Author Organization [address] Address [address] [place] [phone] Phone Care Team Providers Care Skilled Labor Name Role Phone Jeronimo Norris MD Primary Care Provider [phone] Surgical History Surgery Date Site/Laterality Comments CHOLECYSTECTOMY age 19 PROCEDURE: HISTORICAL CHOLECYSTECTOMY COLONOSCOPY 03/14 PROCEDURE: WA COLONOSCOPY STOMA DX INCLUDING COLLJ SPEC SPX OTHER SURGICAL HISTORY 01/14 PROCEDURE: MAMMOGRAM TONSILLECTOMY ADENOIDECTOMY, BILATERAL MYRINGOTOMY AND TUBES PROCEDURE: WA TONSILLECTOMY & ADENOIDECTOMY <AGE 14 HYSTERECTOMY 1965 PROCEDURE: HISTORICAL HYSTERECTOMY; COMMENT: SHAYE USO ESOPHAGOGASTRODUODENOSCOPY 2 PROCEDURE: WA ESOPHAGOGASTRODUODENOSCOPY TRANSORAL DIAGNOSTIC; COMMENT: normal on PPI rx. CARPAL TUNNEL RELEASE January, PROCEDURE: WA NEUROPLASTY &/TRANSPOS MEDIAN NRV CARPAL TUNNE; COMMENT: [...] DX:Sciatica Polymyalgia (CMS/HCC V24) 02/18/2008 DX:Gokul ymyalgia ([facility]); COMMENT: Onset fall 2006 - prednisone through [...] 9:17 AM EDT [facility] Potassium 4.1 3.5 - 5.5 mmol/L LAB CHEMISTRY METHOD 02/24/2025 9:17 AM [facility] Chloride 102 96 - 110 mmol/L LAB CHEMISTRY METHOD 02/24/2025 9:17 AM [facility] CO2 29 21 - 32 mmol/L LAB CHEMISTRY METHOD 02/24/2025 9:17 AM [facility] Anion Gap 7 3 - 11 LAB CHEMISTRY METHOD 02/24/2025 9:17 AM [facility] Glucose 84 70 - 100 mg/dL LAB CHEMISTRY METHOD 02/24/2025 9:17 AM [facility] BUN 20 5 - 25 mg/dL LAB CHEMISTRY METHOD 02/24/2025 9:17 AM [facility] Creatinine 0.48(L) 0.50 - 1.10 mg/dL LAB CHEMISTRY METHOD 02/24/2025 9:17 AM [facility] LAB eGFR 95 >=60 mL/min/1. 73m2 LAB CHEMISTRY METHOD 02/24/2025 9:17 AM [facility] LAB Comment:Calculation based on the Chronic Kidney Disease Epidemiology Collaboration (CKD-EPI) equation refit without adjustment for race. BUN/Creatinine Ratio 41.7 LAB CHEMISTRY METHOD 02/24/2025 9:17 AM [facility] Calcium 8.9 8.5 - 10.5 mg/dL LAB CHEMISTRY METHOD 02/24/2025 9:17 AM [facility] Blood Venous blood specimen / Unknown Venipuncture / Unknown 02/24/2025 6:35 AM EDT 02/24/2025 8:22 AM EDT us Jeronimo Norris MD LAB BLOOD ORDERABLES Final Resu lt [facility] [address] [place] [address], [place] [phone] from Last 3 Months or Most Recently Relevant to Health Maintenance Insurance [employer] Care Teams Skilled Labor Relationship Specialty Start Date End Date Jeronimo Norris MD [address] [place] [address] PCP - General Internal Medicine 02/10/25
--- OUTSIDE RECORDS SUMMARY | 2025-08-23 16:43 | XMS_ITS | Clinical Summary ---
Author Organization [facility] Address [address] [facility] [address] [place] [address] Phone Care Team Providers Care Quarry Plant Crusher Operator Name Role Phone Unavailable Primary Care [...] It is not the complete legal health record.[facility]
--- OUTSIDE RECORDS SUMMARY | 2025-08-23 16:43 | XMS_ITS | Encounter Summary ---
Author Organization [facility] Address [address] [place] [address] Care Team Providers Care Surveillance Specialist Name Role Phone Jeronimo Norris MD Primary Care Provider [phone] Encounter Details Date Type Department Care Team (Late st Contact Info) Description 02/20/2025 Lab Requisition [facility] - Main Lab [address] [facility] [employer] [address] Jeronimo Norris MD [address] [place] [address] Essential (primary) hypertension; Gastro-esophageal reflux [...] mmol/L LAB CHEMISTRY METHOD 02/21/2025 12:55 PM [facility] Potassium 4.1 3.5 - 5.5 mmol/L LAB CHEMISTRY METHOD 02/21/2025 12:55 PM [facility] Chloride 102 96 - 110 mmol/L LAB CHEMISTRY METHOD 02/21/2025 12:55 PM [facility] CO2 27 21 - 32 mmol/L LAB CHEMISTRY METHOD 02/21/2025 12:55 PM [facility] Anion Gap 10 3 - 11 LAB CHEMISTRY METHOD 02/21/2025 12:55 PM [facility] Glucose 78 70 - 100 mg/dL LAB CHEMISTRY METHOD 02/21/2025 12:55 PM [facility] BUN 20 5 - 25 mg/dL LAB CHEMISTRY METHOD 02/21/2025 12:55 PM [facility] Creatinine 0.56 0.50 - 1.10 mg/dL LAB CHEMISTRY METHOD 02/21/2025 12:55 PM [facility] eGFR 91 >=60 mL/min/1. 73m2 LAB CHEMISTRY METHOD 02/21/2025 12:55 PM [facility] Comment:Calculation based on the Chronic Kidney Disease Epidemiology Collaboration (CKD-EPI) equation refit without adjustment for race. BUN/Creatinine Ratio 35.7 LAB CHEMISTRY METHOD 02/21/2025 12:55 PM [facility] Calcium 8.8 8.5 - 10.5 mg/dL LAB CHEMISTRY METHOD 02/21/2025 12:55 PM [facility] AST (SGOT) 15 10 - 42 unit/L LAB CHEMISTRY METHOD 02/21/2025 12:55 PM [facility] ALT (SGPT) 14 10 - 60 unit/L LAB CHEMISTRY METHOD 02/21/2025 12:55 PM [facility] Alkaline Phosphatase 79 42 - 121 unit/L LAB CHEMISTRY METHOD 02/21/2025 12:55 PM EDT [facility] Total Protein 5.7(L) 6.0 - 8.0 g/dL LAB CHEMISTRY METHOD 02/21/2025 12:55 PM EDT [facility] Albumin 2.6(L) 3.2 - 5.0 g/dL LAB CHEMISTRY METHOD 02/21/2025 12:55 PM EDT [facility] Total Bilirubin 0.3 0.0 - 1.4 mg/dL LAB CHEMISTRY METHOD 02/21/2025 12:55 PM EDT [facility] Blood Venous blood specimen / Unknown 02/21/2025 5:59 AM EDT 02/21/2025 11:33 AM EDT us Jeronimo Norris MD LAB BLOOD ORDERABLES Final Resu lt [facility] [address] [place] [address], [place] [phone] * (ABNORMAL) Complete blood count (02/21/2025 5:59 AM EDT) WBC 9.2 4.8 - 10.8 K/mcL LAB HEMETOLOGY METHOD 02/21/2025 1:48 PM EDT [facility] RBC 3.10(L) 3.80 - 4.80 M/mcL LAB HEMETOLOGY METHOD 02/21/2025 1:48 PM EDT [facility] Hemoglobin 9.6(L) 11.5 - 16.0 g/dL LAB HEMETOLOGY METHOD 02/21/2025 1:48 PM EDT [facility] Hematocrit 31.1(L) 35.0 - 47.0 % LAB HEMETOLOGY METHOD 02/21/2025 1:48 PM EDT [facility] MCV 100.0(H) 79.0 - 98.0 FL LAB HEMETOLOGY METHOD 02/21/2025 1:48 PM EDT [facility] MCH 30.9 27.0 - 32.0 pcg LAB HEMETOLOGY METHOD 02/21/2025 1:48 PM EDT [facility] MCHC 30.9(L) 32.0 - 37.0 g/dL LAB HEMETOLOGY METHOD 02/21/2025 1:48 PM EDT [facility] RDW 14.4 11.0 - 15.0 % LAB HEMETOLOGY METHOD 02/21/2025 1:48 PM EDT [facility] Platelets 563(H) 130 - 400 K/mcL LAB HEMETOLOGY METHOD 02/21/2025 1:48 PM EDT [facility] MPV 9.9 7.0 - 11.0 FL LAB HEMETOLOGY METHOD 02/21/2025 1:48 PM EDT [facility] NRBC 0.0 <1.0 % LAB HEMETOLOGY METHOD 02/21/2025 1:48 PM EDT [facility] NRBC Absolute 0.00 <0.10 K/mcL LAB HEMETOLOGY METHOD 02/21/2025 1:48 PM EDT [facility] Blood Venous blood specimen / Unknown 02/21/2025 5:59 AM EDT 02/21/2025 11:33 AM EDT us Jeronimo Norris MD LAB BLOOD ORDERABLES Final Resu lt [facility] [address] [place] [address], documented in this encounter Visit Diagnoses Diagnosis Essential (primary) hypertension Unspecified essential hypertension Gastro-esophageal reflux disease without esophagitis documented in this encounter Care Teams Surveillance Specialist Relationship Specialty Start Date End Date Jeronimo Norris MD [address] [place] [address] PCP - General Internal Medicine 02/10/25 documented as of this encounter
== END 2025-08-23 15:38 | disposition home or self-care (01) ==
LOC: HO.HOS 15:00
PROVIDERS: Visit Provider Physician Assistant
DX: S72.141A Displaced intertrochanteric fracture of right femur, initial encounter for closed fracture (principal); M54.16 Radiculopathy, lumbar region
CPT/HCPCS: 99213

== ENCOUNTER → 2025-08-23 15:02 | Outpatient (BNV) | payer MEDICARE, SELFPAY | PROVIDERS: Visit Provider Radiology Diagnostic Radiology | DX: S72.141A Displaced intertrochanteric fracture of right femur, initial encounter for closed fracture (principal) | CPT/HCPCS: 73552 ==